=== PATIENT | female | born 1935 | race Caucasian/White ===

== ENCOUNTER → 2017-10-08 09:04 | Outpatient (CLI) | payer MEDICARE, OTHER, SELFPAY ==
[2017-10-08 12:47] LABS: AST(SGOT) 23 U/L (15-37); Alanine Aminotransfer ALT/SGPT 35 U/L (13-56); Albumin, Serum 3.7 g/dL (3.2-5.0); Alkaline Phosphatase 75 U/L (45-117); Bilirubin, Direct 0.14 mg/dL (0.00-0.30); Cholesterol 152 mg/dL (200); High Density Lipoprotein 97 mg/dL; Protein, Total 6.7 g/dL (6.4-8.2); T4 Total, Thyroxin 10.5 ug/dL (4.8-13.9); Thyroid Stim Hormone (TSH) 2.18 uIU/mL (0.358-3.74); Triglycerides 46 mg/dL; Very Low Density Lipoprotein 9 mg/dL (5-40)
== END ==
PROVIDERS: Family Provider Family Medicine; PCP Family Medicine; Visit Provider Internal Medicine Cardiovascular Disease
DX: I35.0 Nonrheumatic aortic (valve) stenosis (principal); Z95.2 Presence of prosthetic heart valve
CPT/HCPCS: 36415; 80061; 80076; 84436; 84443

== ENCOUNTER 2017-10-20 08:02 | Observation (INO) | payer MEDICARE, OTHER, SELFPAY ==
[2017-10-20] VITALS (14 sets, daily range): BP systolic 102–198; BP diastolic 45–82; PULSE 60–70; RESP 14–18; TEMP 36.3–36.7; O2SAT 94–100; BMI 25.9; BMI 26.1
--- NOTE | 2017-10-20 08:19 | CT_ITS ---
STUDY: CT BRAIN WITHOUT CONTRAST REASON FOR EXAM: Female, 82 years old. Balance trouble RADIATION DOSAGE (If Supplied By Facility): CTDIvol = ( 44.99 ) mGy, DLP = ( 749.45 ) mGycm TECHNIQUE: Transaxial CT imaging of the brain was performed without administration of intravenous contrast material. Individualized dose optimization techniques were used for this CT. COMPARISON: September 19, 2016 CT scan head FINDINGS: Normal soft tissue structures. Normal calvarium. There is mild cerebral atrophy with widening of the extra-axial spaces and ventricular dilatation. There are areas of decreased attenuation within the white matter tracts of the supratentorial brain, consistent with microvascular disease changes. Normal basal ganglia and thalami. Normal brainstem. There is mild cerebellar atrophy. There is no intracranial hemorrhage. There are no findings of an acute ischemic infarction. There is trace ethmoid sinus mucosal thickening. Mastoid air cells are clear. There is no evidence of fluid around the ossicles. CT/Brain/Head without Contrast IMPRESSION: Mild atrophy no evidence of acute hemorrhage infarct or edema. Electronically Signed: Nell Chavez MD at 9:46 EST Tel , Service support ,
--- NOTE | 2017-10-20 08:19 | RAD_ITS ---
STUDY: X-RAY CHEST REASON FOR EXAM: Female, 82 years old. Hypertension feels wobbly TECHNIQUE: Single AP portable view of the chest. COMPARISON: 09/14/2016 chest x-ray FINDINGS: The lungs are clear and expanded. There is no demonstrated pleural abnormality. Sternal cerclage wires are present from a prior sternotomy. There is mild cardiac enlargement. Normal mediastinum and pito. Normal visualized pulmonary arteries. There is atherosclerotic calcification of the aortic arch with tortuosity. There are diffuse degenerative changes of the visualized thoracic spine. Normal visualized ribs, clavicles, and shoulders. There is no demonstrated abnormality of the visualized soft tissue structures of the upper abdomen. RAD/Chest 1 View (Portable) IMPRESSION: Degenerative changes, as described above. Status post sternotomy. Mild cardiomegaly. No demonstrated acute cardiopulmonary process. Electronically Signed: Nell Chavez MD at 8:54 EST Tel , Service support ,
--- NOTE | 2017-10-20 08:20 | EKG12_ITS ---
Test Reason : HTN Blood Pressure : / mmHG Vent. Rate : 064 BPM Atrial Rate : 064 BPM P-R Int : 170 ms QRS Dur : 100 ms QT Int : 432 ms P-R-T Axes : 070 016 069 degrees QTc Int : 445 ms Normal sinus rhythm Low voltage QRS Borderline ECG Confirmed by LITZY SHANNON, REGAN ([id number]), movie editor MELISSA CACERES ([id number]) on 10/23/2017 3:53:14 PM Referred By: MARY Confirmed By:REGAN MCGHEE MD
[2017-10-20] MEDS: 0.9% Normal Saline 1,000 ML 150 ML IV (08:35)
[2017-10-20 08:50] LABS: Absolute Lymphocyte Count 0.37 X10^3/ul (0.83-4.51); Absolute Neutrophil Count 5.6 X10^3/uL (2.0-7.7); Basophil# 0.01 X10^3/uL; Basophil% 0.2 % (0-1); Differential Indicated SCAN CRITERIA MET; Eosinophil# 0.02 X10^3/uL; Eosinophils% 0.3 % (0-5); Hematocrit 35.9 % (37-47); Hemoglobin 11.8 g/dl (12.0-15.0); Lymphocyte # 0.37 X10^3/ul (4.0); Lymphocyte % 5.9 % (19-41); Mean Corp Hgb Conc 32.9 g/gl (32-36); Mean Corpuscular Hgb 29.1 pg (27.0-32.0); Mean Corpuscular Volume 88.6 fL (81-99); Mean Platelet Vol. 9.9 fl (6.2-12.0); Monocyte# 0.29 X10^3/uL; Monocyte% 4.6 % (0-10); Neutrophil # 5.57 X10^3/uL (2.7-7.7); Neutrophil % 88.8 % (47-70); POSITIVE COUNT NO; POSITIVE DIFFERENTIAL YES; POSITIVE MORPHOLOGY NO; Platelet Count 239 K/mm3 (150-450); RBC Distribution Width CV 14.4 % (11.6-14.6); RBC Distribution Width SD 47.3 fl (35.1-43.9); Red Blood Count 4.05 M/mm3 (4.2-5.4); White Blood Count 6.3 K/mm3 (4.4-11.0)
[2017-10-20] MEDS: Lisinopril 10 MG Tablet PO ×2 (08:50→16:31)
[2017-10-20 09:00] LABS: Bacteria 0 SEEN /hpf (None Seen); Mucous, Urine 0 SEEN /hpf (<or=2+); Red Blood Cells-Urine 0 SEEN /hpf (0-5); White Blood Cells 0 SEEN /hpf (0-5)
[2017-10-20 09:03] LABS: Color, Urine Yellow (Yellow); Glucose, Dipstick 1000 mg/dl (Normal); Ketone-Dipstick 5 mg/dl (Negative); Leukocyte Esterase-Dipstick 25 /ul (Negative); Nitrite-Dipstick Negative (Negative); Occult Blood-Urine 10 /ul (Negative); Protein-Dipstick 30 mg/dl (Negative); Specific Gravity, Urine 1.015 (1.002-1.030); Urine Bilirubin Dipstick Negative (Negative); Urine Clarity Clear (Clear); Urine Urobilinogen Normal (Normal)
[2017-10-20 09:09] LABS: Squamous Epithelial Cells - UA 0-5 SEEN /hpf (5-10)
[2017-10-20 09:34] LABS: Anion Gap 8 (5-15); BUN 36 mg/dL (7-18); BUN/Creat Ratio 45.2 RATIO (10-20); Calcium,Total 8.6 mg/dL (8.5-10.1); Chloride 99 mmol/L (98-107); EST Glomerular Filtration Rate 74 mL/min (>60); Est Glom Filt Rate - Afr Amer 89 mL/min (>60); Glucose 295 mg/dL (74-106); Potassium 4.2 mmol/L (3.5-5.1); Sodium Level 134 mmol/L (136-145)
--- NOTE | 2017-10-20 10:09 | ED.VISSUMM ---
- ER Visit Summary Date of Service: 10/20/17 Chief Complaint: [Hypertension, hyperglycemia, dizziness History of Present Illness: The patient is a 82 F [presents to the emergency department with complaint of not feeling well this morning. Patient states that she feels her symptoms are due to elevated blood pressure. Patient states normally her blood pressures in the 150s-160s 60s systolic and this morning she was 190/80. Patient states her blood sugars were in the 200s today. Patient states she did not eat well last evening and ate a bunch of junk. Patient denies any chest pain or shortness of breath. Patient does feel lightheaded with standing. Patient feels off balance and states she actually had to use her walker through the house today which is unusual. Patient denies any falls or head injuries. Patient is on Eliquis for history of atrial fibrillation.] Physical Examination: [HEENT-PERRLA, EOMI. Cranial nerves II through XII grossly intact. TMs clear. Mucous membranes moist. No adenopathy. Cardiovascular-regular rate and rhythm without murmur or ectopy Lungs-clear to auscultation, chest wall stable without crepitus or subcu emphysema Abdomen-normoactive bowel sounds, soft, nontender, no rebound or rigidity, no peritoneal signs. Neuro [id number] and heel bailey testing within normal limits. Negative Romberg, negative pronator drift, fundi benign. NIH stroke scale was 0. Extremities-intact ?4, normal range of motion, normal pulses, atraumatic] Test Results: [CT scan of the brain without contrast showed chronic involutional changes otherwise nothing acute. CBC with differential showed a white count 6.3, hemoglobin 11.8, hematocrit 36, platelets 239. Chemistry is unremarkable. Glucose was 295. Urinalysis was unremarkable other than she was spilling glucose. Troponin was less than 0.02. EKG showed sinus rhythm with a rate of 64 bpm.] Static vital signs were negative. Emergency Department Course and Treatment: [Patient did feel lightheaded with standing during orthostatic exam. Patient was given normal saline and was given her lisinopril initially 10 mg p.o.] etiology of her lightheadedness at this point is unclear. I do not see any evidence of stroke. Treatment Plan: [Admit] Disposition: [Admit] Impression: [Hypertension Dizziness-etiology uncertain Hyperglycemia] This note was generated with Dragon dictation software. It may contain incorrect words, spelling, and punctuation that were not noted in review of the chart prior to signing ED Disposition - Plan for ED Patient: Chief Complaint: Hypertension Referrals: Chad Chang MD [Primary Care Provider] -
--- NOTE | 2017-10-20 10:10 | PCM.HP.STD ---
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 (4) Paroxysmal atrial fibrillation Status: Chronic (5) History of aortic valve replacement with bioprosthetic valve Status: Chronic (6) Hyperlipidemia Status: Chronic Qualifiers: Hyperlipidemia type: unspecified Qualified Code(s): E78.5 - Hyperlipidemia, unspecified (7) Pulmonary hypertension Status: Chronic History of Present Illness Date of Admission: 10/20/17 Chief Complaint: Elevated BP, BS, Mildly Lightheaded The patient is a 82 y/o F w/ PMHx: HTN, HLD, Anxiety and Depression, PAF on chronic anticoagulation, Diabetes mellitus type II, Valvular Heart Disease s/p AVR, Pulmonary HTN who presents to the [facility] ED on 10/20/17 with vague complaints of elevated BS and elevated BP 10/20/17 AM, although she admitted to not having taken her BP regimen as of yet as well as non-compliant non-ADA food intake the evening prior with mild lightheadedness, weakness, noted to have required usage of her walker in the home which per her report is abnormal with no recent URI or illness. In the ED work-up included T97.4, HR 60s, BP 179/53, orthostatic VS unremarkable, RR 18, 100% on RA, CBC w/ WBC 6.3, Hgb 11.8, Plts 239 without marked shift, BMP w/ Na 134, BUN/Cr 36/0.80, glucose 295, trop < 0.02, UA not marked appearing, CT head unremarkable, CXR with chronic changes s/p sternotomy, mild cardiomegaly, EKG with SR without acute evidence of ischemia. In the ED patient administered NS, lisinopril regimen. Past Medical History Past Medical History (Chronic Problems): Chronic Problems (Last Reviewed 10/01/17 @ 09:34 by Sandy Valdez) HTN (hypertension) (Chronic) Anxiety and depression (Chronic) H/O aortic valve replacement (Chronic ~06/20/16) Type 2 diabetes mellitus (Chronic) Paroxysmal atrial fibrillation (Chronic) Edema (Chronic) Dyspnea on exertion (Chronic) Shortness of breath (Chronic) History of aortic valve replacement with bioprosthetic valve (Chronic ~06/20/16) Hyperlipidemia (Chronic) Pulmonary hypertension (Chronic) Allergies No Known Allergies Allergy (Verified 10/20/17 08:06) Home Medications: Ambulatory Orders Medication Instructions Recorded Atorvastatin Calcium [Lipitor] 20 mg PO QHS #0 tab 07/09/16 Amiodarone HCl [Cordarone] 100 mg PO DAILY 09/19/16 Apixaban [Eliquis] 5 mg PO BID 01/12/17 Multivitamins,Ther W-Minerals 1 tab PO DAILY 01/12/17 [Multivitamin With Minerals] Omeprazole 20 mg PO DAILY PRN 01/12/17 potassium chloride ER 10 mEq 10 meq PO QDAY PRN #90 tab 08/30/17 tablet,extended release(part/cryst) aspirin 81 mg chewable tablet 81 mg PO QDAY tab 09/25/17 furosemide 40 mg tablet 40 mg PO QDAY PRN 10/01/17 glimepiride 4 mg tablet 4 mg PO BID tab 10/01/17 lisinopril 10 mg tablet 10 mg PO QDAY 10/01/17 metformin 500 mg tablet 500 mg PO BID 10/01/17 tolterodine ER 4 mg 4 mg PO QDAY 10/01/17 capsule,extended release 24 hr Surgical History: - - S/P AVR, Carpal Tunnel Release, BL TKR, D+C. 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 Denies: Chills, Fever, Weight Change HEENT: Denies: Head Aches, Sinus Congestion, Sinus Drainage Cardiovascular: Reports: Light Headedness. Denies: Chest Pain, Palpitations Respiratory: Denies: Cough, Shortness of Breath, Shortness of breath at rest, Shortness of breath upon exertion, Sputum production, Wheezing Gastrointestinal: Denies: Abdominal Pain, Nausea, Vomiting Genitourinary: Denies: Dysuria Musculoskeletal: Denies: Joint Pain, Joint Tenderness Skin: Denies: Rash, Wounds Neurological: Denies: Slurred speech, Confusion, Focal weakness, Numbness, Tingling Psychiatric: Denies: Homicidal Ideations, Suicidal Ideations Hematologic/ Lymphatic: Reports: Easy Bruising, Easy Bleeding VTE Information - Inpt Only VTE Present on Admission: No VTE Mechan Device Prophylaxis: SCD's VTE Pharm Prophylaxis ordered?: No Reason prophylaxis not ordered:: Treatment Not Indicated Subjective: Seated upright in bed, recently up to restroom with assist. Notes feeling improved since initial ED presentation. Objective: Physical Examination: General: awake, alert, oriented x 3 and cooperative, seated upright in bed in no apparent distress. Skin: normal color, turgor, no icterus, cyanosis. HEENT: AT/NC, EOMI, PERRLA, MMM, no carotid bruits or JVD noted. Lungs: CTA bilaterally, moderate effort, mild decrease BL bases, no rales, ronchi or wheezing. Heart: Regular rate and rhythm; no gallop, rub audible, s/p AVR. Abdomen: soft, NTTP, ND, normal BS, no HSM. Extremities: no cyanosis, clubbing, or edema. Neurological: patient awake, alert, oriented x 3; cognitive function intact; pupils equally reactive to light and accomodation; cranial nerves II-XII grossly normal, moving all 4 extremities, no focal deficits, strength improved, mildly to moderately globally decreased. Psychiatric: affect appears normal, no acute evidence of depressive or anxiety feelings. - Physical Exam Vital Signs Temp Pulse Resp BP Pulse Ox 97.4 F L 64 18 170/78 H 97 10/20/17 08:03 10/20/17 09:56 10/20/17 08:28 10/20/17 09:56 10/20/17 10:03 Oxygen Delivery Method Room Air Weight: 146 lb 6.191 oz Body Mass Index (BMI) 25.9 Finger Stick Blood Glucose 287 Laboratory Tests Past 24 Hrs 10/20/17 10/20/17 10/20/17 08:30 08:30 08:45 WBC 6.3 RBC 4.05 L Hgb 11.8 L Hct 35.9 L MCV 88.6 MCH 29.1 MCHC 32.9 RDW 14.4 RDW Differential 47.3 H Plt Count 239 MPV 9.9 Immature Gran % (Auto) 0.200 Neut % (Auto) 88.8 H Lymph % (Auto) 5.9 L Arthur % (Auto) 4.6 Eos % (Auto) 0.3 Baso % (Auto) 0.2 Absolute Neuts (auto) 5.6 Absolute Lymphs (auto) 0.37 L Total Counted Not Reportable Sodium 134 L Potassium 4.2 Chloride 99 Carbon Dioxide 27.0 Anion Gap 8 BUN 36 H Creatinine 0.80 Estim Creat Clear Calc 46.40 Est GFR (MDRD) Af Amer 89 Est GFR (MDRD) Non-Af 74 BUN/Creatinine Ratio 45.2 H Glucose 295 H Calcium 8.6 Troponin I < 0.02 Urine Color Yellow Urine Clarity Clear Urine pH 7.0 Ur Specific [place] 1.015 Urine Protein 30 H Urine Glucose (UA) 1000 H Urine Ketones 5 H Urine Occult Blood 10 H Urine Nitrite Negative Urine Bilirubin Negative Urine Urobilinogen Normal Ur Leukocyte Esterase 25 H Urine RBC 0 SEEN Urine WBC 0 SEEN Ur Squamous Epith Cells 0-5 SEEN Urine Bacteria 0 SEEN Urine Mucus 0 SEEN Assessment/Plan The patient is a 82 y/o F w/ PMHx: HTN, HLD, Anxiety and Depression, PAF on chronic anticoagulation, Diabetes mellitus type II, Valvular Heart Disease s/p AVR, Pulmonary HTN who presents to the [facility] ED on 10/20/17 with vague complaints of elevated BS and elevated BP 10/20/17 AM, although she admitted to not having taken her BP regimen as of yet as well as non-compliant non-ADA food intake the evening prior with mild lightheadedness, weakness, noted to have required usage of her walker in the home which per her report is abnormal with no recent URI or illness. (1) Vague Lightheadedness, Dizziness, ? Near Syncope: Unclear etiololgy, EKG in ED w/ sinus rhythm without evidence of acute ischemia, CXR w/ no acute cardiopulmonary findings, initial trop normal. Will admit to PCU, place on a monitored bed to assure no acute myocardial infarction with serial cardiac enzymes and EKGs. Will maintain on fall precautions, admission orthostatic VS unremarkable, continue gentle IVFs, notes improved already since initial ED presentation, no recent ECHO thus will request in addition to carotid US but if improved to baseline over the next 24 hours per discussion with patient would allow discharge to home with follow-up with Cardiology, mag and TSH pending. PT, OT, CM for discharge planning. (2) PAF: EKG SR without acute evidence of ischemia, maintain on home amiodarone and eliquis regimen. TSH, mag pending as noted. (3) Hypertension, Uncontrolled: Elevated in the BP, did not take medications today, will continue home regimen including lisinopril, lasix, PRN hydralazine. (4) Hyperlipidemia: Not on regimen, defer to outpatient. (5) Diabetes mellitus type II: Hold oral home regimen, continue home insulin regimen, ADA diet, accu checks w/ ISS. Nutrition consulted for diet education. (6) Valvular Heart Disease: s/p AVR, no recent ECHO, requested, may not be able to be performed secondary to late admission weekend. (7) Chronic Appearing Normocytic Anemia: Admission Hgb 11.8, baseline appears 10-11, stable, trend. (8) DVT Prophylaxis: SCDs, eliquis. (9) CODE status: Discussed CODE status at length including difference between FULL code, DNR-CCA and DNR-CC status. Following discussions about the differences in these status, confirmed FULL CODE with living will in place which would further dictate withdrawal of care if worsened status following resuscitation efforts. She notes HCPOA in place. Advanced Care Planning Face to Face Time: 17 minutes. Code Visit OBSV E&M: 59872 Initial observation care L3 Procedures: 73730 Advncd Care Plan 30 Min
--- NOTE | 2017-10-20 10:20 | HP.PCM_ITS ---
Problem List (1) HTN (hypertension) Status: Chronic Qualifiers: Hypertension type: essential hypertension Qualified Code(s): I10 - Essential (primary) hypertension (2) Anxiety and depression Status: Chronic (3) Type 2 diabetes mellitus Status: Chronic Qualifiers: Diabetes mellitus complication status: with unspecified complications Diabetes mellitus ocean transportation intermediary insulin use: with longterm use Qualified Code(s) : E11.8 - Type 2 diabetes mellitus with unspecified complications; Z79.4 - intermodal dispatcher (current) use of insulin (4) Paroxysmal atrial fibrillation Status: Chronic (5) History of aortic valve replacement with bioprosthetic valve Status: Chronic (6) Hyperlipidemia Status: Chronic Qualifiers: Hyperlipidemia type: unspecified Qualified Code(s): E78.5 - Hyperlipidemia , unspecified (7) Pulmonary hypertension Status: Chronic History of Present Illness Date of Admission: 10/20/17 Chief Complaint: Elevated BP, BS, Mildly Lightheaded The patient is a 82 y/o F w/ PMHx: HTN, HLD, Anxiety and Depression, PAF on chronic anticoagulation, Diabetes mellitus type II, Valvular Heart Disease s/p AVR, Pulmonary HTN who presents to the [facility] ED on 10/20/17 with vague complaints of elevated BS and elevated BP 10/20/17 AM, although she admitted to not having taken her BP regimen as of yet as well as non-compliant non-ADA food intake the evening prior with mild lightheadedness, weakness, noted to have required usage of her walker in the home which per her report is abnormal with no recent URI or illness. In the ED work-up included T97.4, HR 60s, BP 179/53, orthostatic VS unremarkable, RR 18, 100% on RA, CBC w/ WBC 6.3, Hgb 11.8, Plts 239 without marked shift, BMP w/ Na 134, BUN/Cr 36/0.80, glucose 295, trop < 0.02, UA not marked appearing, CT head unremarkable, CXR with chronic changes s/p sternotomy , mild cardiomegaly, EKG with SR without acute evidence of ischemia. In the ED patient administered NS, lisinopril regimen. Past Medical History Past Medical History (Chronic Problems): Chronic Problems (Last Reviewed 10/01/17 @ 09:34 by Sandy Valdez) HTN (hypertension) (Chronic) Anxiety and depression (Chronic) H/O aortic valve replacement (Chronic ~06/20/16) Type 2 diabetes mellitus (Chronic) Paroxysmal atrial fibrillation (Chronic) Edema (Chronic) Dyspnea on exertion (Chronic) Shortness of breath (Chronic) History of aortic valve replacement with bioprosthetic valve (Chronic ~06/20/16) Hyperlipidemia (Chronic) Pulmonary hypertension (Chronic) Allergies No Known Allergies Allergy (Verified 10/20/17 08:06) Home Medications: Ambulatory Orders Medication Instructions Recorded Atorvastatin Calcium [Lipitor] 20 mg PO QHS #0 tab 07/09/16 Amiodarone HCl [Cordarone] 100 mg PO DAILY 09/19/16 Apixaban [Eliquis] 5 mg PO BID 01/12/17 Multivitamins,Ther W-Minerals 1 tab PO DAILY 01/12/17 [Multivitamin With Minerals] Omeprazole 20 mg PO DAILY PRN 01/12/17 potassium chloride ER 10 mEq 10 meq PO QDAY PRN #90 tab 08/30/17 tablet,extended release(part/cryst) aspirin 81 mg chewable tablet 81 mg PO QDAY tab 09/25/17 furosemide 40 mg tablet 40 mg PO QDAY PRN 10/01/17 glimepiride 4 mg tablet 4 mg PO BID tab 10/01/17 lisinopril 10 mg tablet 10 mg PO QDAY 10/01/17 metformin 500 mg tablet 500 mg PO BID 10/01/17 tolterodine ER 4 mg 4 mg PO QDAY 10/01/17 capsule,extended release 24 hr Surgical History: - - S/P AVR, Carpal Tunnel Release, BL TKR, D+C. Psychiatric History: Anxiety, Depression OUTSIDE SALES INSPECTOR History: No pertinent OUTSIDE SALES INSPECTOR history Lives: Alone Smoking Status: Never smoker Tobacco Use: Non-smoker Alcohol: None Drugs: None - *Family History Paternal History Items: Dementia, Heart Disease Maternal History Items: Heart Disease Review of Systems Constitutional: Reports: Malaise, Weakness, Fatigue. Denies: Chills, Fever, Weight Change HEENT: Denies: Head Aches, Sinus Congestion, Sinus Drainage Cardiovascular: Reports: Light Headedness. Denies: Chest Pain, Palpitations Respiratory: Denies: Cough, Shortness of Breath, Shortness of breath at rest, Shortness of breath upon exertion, Sputum production, Wheezing Gastrointestinal: Denies: Abdominal Pain, Nausea, Vomiting Genitourinary: Denies: Dysuria Musculoskeletal: Denies: Joint Pain, Joint Tenderness Skin: Denies: Rash, Wounds Neurological: Denies: Slurred speech, Confusion, Focal weakness, Numbness, Tingling Psychiatric: Denies: Homicidal Ideations, Suicidal Ideations Hematologic/ Lymphatic: Reports: Easy Bruising, Easy Bleeding VTE Information - Inpt Only VTE Present on Admission: No VTE Mechan Device Prophylaxis: SCD's VTE Pharm Prophylaxis ordered?: No Reason prophylaxis not ordered:: Treatment Not Indicated Subjective: Seated upright in bed, recently up to restroom with assist. Notes feeling improved since initial ED presentation. Objective: Physical Examination: General: awake, alert, oriented x 3 and cooperative, seated upright in bed in no apparent distress. Skin: normal color, turgor, no icterus, cyanosis. HEENT: AT/NC, EOMI, PERRLA, MMM, no carotid bruits or JVD noted. Lungs: CTA bilaterally, moderate effort, mild decrease BL bases, no rales, ronchi or wheezing. Heart: Regular rate and rhythm; no gallop, rub audible, s/p AVR. Abdomen: soft, NTTP, ND, normal BS, no HSM. Extremities: no cyanosis, clubbing, or edema. Neurological: patient awake, alert, oriented x 3; cognitive function intact; pupils equally reactive to light and accomodation; cranial nerves II-XII grossly normal, moving all 4 extremities, no focal deficits, strength improved, mildly to moderately globally decreased. Psychiatric: affect appears normal, no acute evidence of depressive or anxiety feelings. - Physical Exam Vital Signs Temp Pulse Resp BP Pulse Ox 97.4 F L 64 18 170/78 H 97 10/20/17 08:03 10/20/17 09:56 10/20/17 08:28 10/20/17 09:56 10/20/17 10:03 Oxygen Delivery Method Room Air Weight: 146 lb 6.191 oz Body Mass Index (BMI) 25.9 Finger Stick Blood Glucose 287 Laboratory Tests Past 24 Hrs 10/20/17 10/20/17 10/20/17 08:30 08:30 08:45 WBC 6.3 RBC 4.05 L Hgb 11.8 L Hct 35.9 L MCV 88.6 MCH 29.1 MCHC 32.9 RDW 14.4 RDW Differential 47.3 H Plt Count 239 MPV 9.9 Immature Gran % (Auto) 0.200 Neut % (Auto) 88.8 H Lymph % (Auto) 5.9 L [place] % (Auto) 4.6 Eos % (Auto) 0.3 Baso % (Auto) 0.2 Absolute Neuts (auto) 5.6 Absolute Lymphs (auto) 0.37 L Total Counted Not Reportable Sodium 134 L Potassium 4.2 Chloride 99 Carbon Dioxide 27.0 Anion Gap 8 BUN 36 H Creatinine 0.80 Estim Creat Clear Calc 46.40 Est GFR (MDRD) Af Amer 89 Est GFR (MDRD) Non-Af 74 BUN/Creatinine Ratio 45.2 H Glucose 295 H Calcium 8.6 Troponin I < 0.02 Urine Color Yellow Urine Clarity Clear Urine pH 7.0 Ur Specific [place] 1.015 Urine Protein 30 H Urine Glucose (UA) 1000 H Urine Ketones 5 H Urine Occult Blood 10 H Urine Nitrite Negative Urine Bilirubin Negative Urine Urobilinogen Normal Ur Leukocyte Esterase 25 H Urine RBC 0 SEEN Urine WBC 0 SEEN Ur Squamous Epith Cells 0-5 SEEN Urine Bacteria 0 SEEN Urine Mucus 0 SEEN Assessment/Plan The patient is a 82 y/o F w/ PMHx: HTN, HLD, Anxiety and Depression, PAF on chronic anticoagulation, Diabetes mellitus type II, Valvular Heart Disease s/p AVR, Pulmonary HTN who presents to the [facility] ED on 10/20/17 with vague complaints of elevated BS and elevated BP 10/20/17 AM, although she admitted to not having taken her BP regimen as of yet as well as non-compliant non-ADA food intake the evening prior with mild lightheadedness, weakness, noted to have required usage of her walker in the home which per her report is abnormal with no recent URI or illness. (1) Vague Lightheadedness, Dizziness, ? Near Syncope: Unclear etiololgy, EKG in ED w/ sinus rhythm without evidence of acute ischemia, CXR w/ no acute cardiopulmonary findings, initial trop normal. Will admit to PCU, place on a monitored bed to assure no acute myocardial infarction with serial cardiac enzymes and EKGs. Will maintain on fall precautions, admission orthostatic VS unremarkable, continue gentle IVFs, notes improved already since initial ED presentation, no recent ECHO thus will request in addition to carotid US but if improved to baseline over the next 24 hours per discussion with patient would allow discharge to home with follow-up with Cardiology, mag and TSH pending. PT , OT, CM for discharge planning. (2) PAF: EKG SR without acute evidence of ischemia, maintain on home amiodarone and eliquis regimen. TSH, mag pending as noted. (3) Hypertension, Uncontrolled: Elevated in the BP, did not take medications today, will continue home regimen including lisinopril, lasix, PRN hydralazine. (4) Hyperlipidemia: Not on regimen, defer to outpatient. (5) Diabetes mellitus type II: Hold oral home regimen, continue home insulin regimen, ADA diet, accu checks w/ ISS. Nutrition consulted for diet education. (6) Valvular Heart Disease: s/p AVR, no recent ECHO, requested, may not be able to be performed secondary to late admission weekend. (7) Chronic Appearing Normocytic Anemia: Admission Hgb 11.8, baseline appears 10 -11, stable, trend. (8) DVT Prophylaxis: SCDs, eliquis. (9) CODE status: Discussed CODE status at length including difference between FULL code, DNR-CCA and DNR-CC status. Following discussions about the differences in these status, confirmed FULL CODE with living will in place which would further dictate withdrawal of care if worsened status following resuscitation efforts. She notes HCPOA in place. Advanced Care Planning Face to Face Time: 17 minutes. Code Visit OBSV E&M: 51149 Initial observation care L3 Procedures: 35362 Advncd Care Plan 30 Min
[2017-10-20 12:38] LABS: Magnesium 1.8 mg/dL (1.6-2.6); Thyroid Stim Hormone (TSH) 2.66 uIU/mL (0.358-3.74)
[2017-10-20] MEDS: Tolterodine Tartrate 4 MG CAP.SA PO (12:39)
[2017-10-20] MEDS: 0.9% Normal Saline 1,000 ML 100 ML IV (12:39)
[2017-10-20] MEDS: Furosemide 40 MG Tablet PO (12:39)
[2017-10-20] MEDS: Famotidine 20 MG Tablet PO (12:43)
[2017-10-20 12:56] LABS: Bedside Glucose 279 mg/dL (70-110)
--- NOTE | 2017-10-20 14:11 | CASEMGMT ---
Social Work Note Face to face with the pt to discuss discharge planning as physician placed an order for limited support. Introduced self and role at [facility]. The pt reports that she lives alone in a two story home. She primarily stays on the first level, but does go to the second level once a day to clean her cats' litter boxes. Pt reports to be independent with ADL's and IADL's. Family lives in [place], but she has a neighbor that lives across the street. They check in on one another and are each other's primary supports. Pt states that her sister in [place] is her HCPOA and she has paperwork at home. She will be bringing her neighbor into the hospital next and stats she can bring in her HCPOA paperwork to medical records at that time. DME consists of a walker, cane, shower chair and handheld shower. She does not use her cane or walker at home however. Does not have HHC and states she does not need it. I don't want anyone helping me until I need it, and that's not now. Pt denies additional needs and is made aware that SILVIO saturation equipment operator CM is available if additional needs arise. Plan: Home Venus Gonzalez, WHEEL PRESS CLERK, LABORATORY OPERATIONS COORDINATOR
[2017-10-20 16:15] LABS: Hemoglobin A1c 9.1 % (4.2-6.3)
[2017-10-20 16:21] LABS: Bedside Glucose 288 mg/dL (70-110)
[2017-10-20] MEDS: 0.9% NaCl Peripheral Flush Adult/Peds IV (16:29)
[2017-10-20] MEDS: Atorvastatin Calcium 20 MG Tablet PO (21:38)
[2017-10-20] MEDS: APIXABAN 5 MG TABLET PO (21:38)
[2017-10-20] MEDS: MELATONIN 3 MG TABLET PO (21:38)
[2017-10-20] MEDS: Docusate Sodium 100 MG Capsule PO (21:38)
[2017-10-20 22:06] LABS: Bedside Glucose 211 mg/dL (70-110)
[2017-10-21 03:06] VITALS: PULSE 52
[2017-10-21 03:45] VITALS: BP 119/46; PULSE 55; RESP 16; TEMP 36.5; O2SAT 98
--- NOTE | 2017-10-21 05:55 | EKG12_ITS ---
Test Reason : AM EKG Blood Pressure : / mmHG Vent. Rate : 052 BPM Atrial Rate : 052 BPM P-R Int : 130 ms QRS Dur : 096 ms QT Int : 494 ms P-R-T Axes : 027 028 084 degrees QTc Int : 459 ms Sinus bradycardia Low voltage QRS Nonspecific T wave abnormality Abnormal ECG When compared with ECG of 20-OCT-2017 08:27, MANUAL COMPARISON REQUIRED, DATA IS UNCONFIRMED Confirmed by LITZY SHANNON, REGAN ([id number]), electronic news gathering editor MELISSA CACERES ([id number]) on 10/24/2017 1:45:13 PM Referred By: NABEEL Confirmed By:REGAN MCGHEE MD
[2017-10-21 06:46] LABS: Bedside Glucose 152 mg/dL (70-110)
--- NOTE | 2017-10-21 06:49 | PCM.DC ---
- Discharge Diagnoses Current Active Problems: Current Active and Chronic Problems (Last Reviewed 10/01/17 @ 09:34 by Sandy Valdez) HTN (hypertension) (Chronic) Anxiety and depression (Chronic) (1) Vague Lightheadedness, Dizziness, Suspected secondary to poorly controlled Hypertension and Diabetes mellitus type II (2) PAF (3) Hypertension, Uncontrolled (4) Hyperlipidemia (5) Diabetes mellitus type II, Uncontrolled (HgbA1c 9.1%) (6) Valvular Heart Disease s/p AVR (7) Chronic Appearing Normocytic Anemia You will use the following diet at home:: Calorie/Carbohydrate Controlled (specify 1200, 1400, etc) - 1800 ADA diet., Cardiac Your food should be the consistency of: Regular Your liquids should be the consistency of: Regular/Thin Discharge Activity: Use Walker May resume sexual activity in: 10-14 days Weight Bearing Status: Weight bearing as tolerated Call your doctor if you observe: Fever of 101 or Higher, Inability to urinate, Inability to have a bowel movement, Shortness of breath, Dizziness, Fainting spells, Chest pain, Uncontrolled pain Instructions: Taking LUIS Inhibitors, Controlling High Blood Pressure, Low-Salt Choices, Eating Heart-Healthy Food: Using the DASH Plan, What Is Type 2 Diabetes?, Oral Medications for Type 2 Diabetes, Healthy Meals for Diabetes, Diabetes: Understanding Carbohydrates Additional Instructions: Please follow-up with your primary care physician in order to review options for improved blood sugar control as your diabetes is currently poorly controlled and also assure that your blood pressure control is appropriate with includes an appropriate diet as well as taking your medications. Given your improvement and per your preference an echocardiogram was deferred while inpatient but we encourage you to follow-up with your primary care and your Parts Control Clerk for an echocardiogram as needed. Allergies/Adverse Reactions: Allergies No Known Allergies Allergy (Verified 10/20/17 08:06) Medications to take at Discharge Atorvastatin Calcium [Lipitor] 20 mg PO QHS #0 tab 07/09/16 Amiodarone HCl [Cordarone] 100 mg PO DAILY 09/19/16 Apixaban [Eliquis] 5 mg PO BID 01/12/17 Multivitamins,Ther W-Minerals [Multivitamin With Minerals] 1 tab PO DAILY 01/12/17 Omeprazole 20 mg PO DAILY PRN 01/12/17 potassium chloride ER 10 mEq tablet,extended release(part/cryst) 10 meq PO QDAY PRN #90 tab 08/30/17 aspirin 81 mg chewable tablet 81 mg PO QDAY tab 09/25/17 furosemide 40 mg tablet 40 mg PO QDAY PRN 10/01/17 glimepiride 4 mg tablet 4 mg PO BID tab 10/01/17 lisinopril 10 mg tablet 10 mg PO QDAY 10/01/17 tolterodine ER 4 mg capsule,extended release 24 hr 4 mg PO QDAY 10/01/17 Metformin HCl [Glucophage] 1,000 mg PO BIDCM #60 tablet 10/21/17 The following prescriptions were given: Metformin HCl [Glucophage] 1,000 mg PO BIDCM #60 tablet Primary Care Physician: Chad Chang MD [Primary Care Provider] - Please follow up with your Primary Care Physician in: Follow-up within 2-3 days. Please Follow Up With: Jose Rose MD When: Follow-up as arranged or within 2-4 wks, may see Cardio GERIATRIC NURSE. Proposed Discharge Date: 10/21/17
--- NOTE | 2017-10-21 06:53 | DCINST_ITS ---
- Discharge Diagnoses Current Active Problems: Current Active and Chronic Problems (Last Reviewed 10/01/17 @ 09:34 by Sandy Valdez) HTN (hypertension) (Chronic) Anxiety and depression (Chronic) (1) Vague Lightheadedness, Dizziness, Suspected secondary to poorly controlled Hypertension and Diabetes mellitus type II (2) PAF (3) Hypertension, Uncontrolled (4) Hyperlipidemia (5) Diabetes mellitus type II, Uncontrolled (HgbA1c 9.1%) (6) Valvular Heart Disease s/p AVR (7) Chronic Appearing Normocytic Anemia You will use the following diet at home:: Calorie/Carbohydrate Controlled ( specify 1200, 1400, etc) - 1800 ADA diet., Cardiac Your food should be the consistency of: Regular Your liquids should be the consistency of: Regular/Thin Discharge Activity: Use Walker May resume sexual activity in: 10-14 days Weight Bearing Status: Weight bearing as tolerated Call your doctor if you observe: Fever of 101 or Higher, Inability to urinate, Inability to have a bowel movement, Shortness of breath, Dizziness, Fainting spells, Chest pain, Uncontrolled pain Instructions: Taking LUIS Inhibitors, Controlling High Blood Pressure, Low-Salt Choices, Eating Heart-Healthy Food: Using the DASH Plan, What Is Type 2 Diabetes ?, Oral Medications for Type 2 Diabetes, Healthy Meals for Diabetes, Diabetes: Understanding Carbohydrates Additional Instructions: Please follow-up with your primary care physician in order to review options for improved blood sugar control as your diabetes is currently poorly controlled and also assure that your blood pressure control is appropriate with includes an appropriate diet as well as taking your medications. Given your improvement and per your preference an echocardiogram was deferred while inpatient but we encourage you to follow-up with your primary care and your Hop Trainer for an echocardiogram as needed. Allergies/Adverse Reactions: Allergies No Known Allergies Allergy (Verified 10/20/17 08:06) Medications to take at Discharge Atorvastatin Calcium [Lipitor] 20 mg PO QHS #0 tab 07/09/16 Amiodarone HCl [Cordarone] 100 mg PO DAILY 09/19/16 Apixaban [Eliquis] 5 mg PO BID 01/12/17 Multivitamins,Ther W-Minerals [Multivitamin With Minerals] 1 tab PO DAILY Omeprazole 20 mg PO DAILY PRN 01/12/17 potassium chloride ER 10 mEq tablet,extended release(part/cryst) 10 meq PO QDAY PRN #90 tab 08/30/17 aspirin 81 mg chewable tablet 81 mg PO QDAY tab 09/25/17 furosemide 40 mg tablet 40 mg PO QDAY PRN 10/01/17 glimepiride 4 mg tablet 4 mg PO BID tab 10/01/17 lisinopril 10 mg tablet 10 mg PO QDAY 10/01/17 tolterodine ER 4 mg capsule,extended release 24 hr 4 mg PO QDAY 10/01/17 Metformin HCl [Glucophage] 1,000 mg PO BIDCM #60 tablet 10/21/17 The following prescriptions were given: Metformin HCl [Glucophage] 1,000 mg PO BIDCM #60 tablet Primary Care Physician: Chad Chang MD [Primary Care Provider] - Please follow up with your Primary Care Physician in: Follow-up within 2-3 days. Please Follow Up With: Jose Rose MD When: Follow-up as arranged or within 2-4 wks, may see Cardio MANUFACTURING PLANT TECHNICIAN. Proposed Discharge Date: 10/21/17
[2017-10-21 06:55] VITALS: PULSE 60
[2017-10-21 07:04] LABS: Absolute Lymphocyte Count 1.19 X10^3/ul (0.83-4.51); Absolute Neutrophil Count 3.7 X10^3/uL (2.0-7.7); Basophil# 0.01 X10^3/uL; Basophil% 0.2 % (0-1); Eosinophil# 0.04 X10^3/uL; Eosinophils% 0.7 % (0-5); Hematocrit 33.8 % (37-47); Lymphocyte # 1.19 X10^3/ul (4.0); Lymphocyte % 22.1 % (19-41); Mean Corp Hgb Conc 32.5 g/gl (32-36); Mean Corpuscular Hgb 29.5 pg (27.0-32.0); Mean Corpuscular Volume 90.6 fL (81-99); Mean Platelet Vol. 10.4 fl (6.2-12.0); Monocyte# 0.48 X10^3/uL; Monocyte% 8.9 % (0-10); Neutrophil # 3.65 X10^3/uL (2.7-7.7); Neutrophil % 67.9 % (47-70); Platelet Count 225 K/mm3 (150-450); RBC Distribution Width CV 14.8 % (11.6-14.6); RBC Distribution Width SD 47.7 fl (35.1-43.9); Red Blood Count 3.73 M/mm3 (4.2-5.4); White Blood Count 5.4 K/mm3 (4.4-11.0)
[2017-10-21 07:26] LABS: POSITIVE COUNT NO; POSITIVE DIFFERENTIAL NO; POSITIVE MORPHOLOGY NO
[2017-10-21 07:46] VITALS: O2SAT 93
[2017-10-21 08:28] LABS: Anion Gap 8 (5-15); BUN 22 mg/dL (7-18); BUN/Creat Ratio 38.4 RATIO (10-20); Calcium,Total 7.7 mg/dL (8.5-10.1); Chloride 101 mmol/L (98-107); Creatinine, Serum 0.57 mg/dL (0.55-1.02); EST Glomerular Filtration Rate 108 mL/min (>60); Est Glom Filt Rate - Afr Amer 130 mL/min (>60); Estimated Creatinine Clearance 35.49 ml/min; Glucose 143 mg/dL (74-106); Potassium 3.7 mmol/L (3.5-5.1); Sodium Level 137 mmol/L (136-145)
[2017-10-21 08:34] VITALS: BP 123/53; PULSE 56; RESP 18; TEMP 36.4; O2SAT 97
[2017-10-21] MEDS: Aspirin 81 MG TAB.CHEW PO (08:39)
[2017-10-21] MEDS: Multivitamins,Ther W-Minerals Tablet 1 TABLET PO (08:39)
[2017-10-21] MEDS: APIXABAN 5 MG TABLET PO (08:39)
[2017-10-21] MEDS: Tolterodine Tartrate 4 MG CAP.SA PO (08:39)
[2017-10-21] MEDS: Famotidine 20 MG Tablet PO (08:39)
[2017-10-21] MEDS: Docusate Sodium 100 MG Capsule PO (08:39)
[2017-10-21 08:43] VITALS: PULSE 55
--- NOTE | 2017-10-21 10:36 | NURSING ---
patient refuses home health care
--- NOTE | 2017-10-21 10:46 | PCM.DC.SUM ---
Discharge Date and Diagnosis Date of Admission: 10/20/17 Date of Discharge: 10/21/17 - Primary Discharge Diagnosis (1) Vague Lightheadedness, Dizziness, Suspected secondary to poorly controlled Hypertension and Diabetes mellitus type II (2) PAF (3) Hypertension, Uncontrolled (4) Hyperlipidemia (5) Diabetes mellitus type II, Uncontrolled (HgbA1c 9.1%) (6) Valvular Heart Disease s/p AVR (7) Chronic Appearing Normocytic Anemia - Secondary Discharge Diagnosis Chronic Problems (Last Reviewed 10/01/17 @ 09:34 by Sandy Valdez) HTN (hypertension) (Chronic) Anxiety and depression (Chronic) H/O aortic valve replacement (Chronic ~06/20/16) Type 2 diabetes mellitus (Chronic) Paroxysmal atrial fibrillation (Chronic) Edema (Chronic) Dyspnea on exertion (Chronic) Shortness of breath (Chronic) History of aortic valve replacement with bioprosthetic valve (Chronic ~06/20/16) Hyperlipidemia (Chronic) Pulmonary hypertension (Chronic) Hospital Course and Treatment Operations: None Procedures: EKG Summary of Care Provided: The patient is a 82 y/o F w/ PMHx: HTN, HLD, Anxiety and Depression, PAF on chronic anticoagulation, Diabetes mellitus type II, Valvular Heart Disease s/p AVR, Pulmonary HTN who presented to the [facility] ED on 10/20/17 with vague complaints of elevated BS and elevated BP 10/20/17 AM, although she admitted to not having taken her BP regimen as of yet as well as non-compliant non-ADA food intake the evening prior with mild lightheadedness, weakness, noted to have required usage of her walker in the home which per her report is abnormal with no recent URI or illness. In the ED work-up included T97.4, HR 60s, BP 179/53, orthostatic VS unremarkable, RR 18, 100% on RA, CBC w/ WBC 6.3, Hgb 11.8, Plts 239 without marked shift, BMP w/ Na 134, BUN/Cr 36/0.80, glucose 295, trop < 0.02, UA not marked appearing, CT head unremarkable, CXR with chronic changes s/p sternotomy, mild cardiomegaly, EKG with SR without acute evidence of ischemia. The patient was admitted to PCU, maintained on monitor without event, maintained on fall precautions, admission orthostatic VS unremarkable, continued gentle IVFs and then HLIV. She noted improvement even upon transition from ED to floor with BP improvement. In the ED patient had been administered her home regimen. Mag and TSH were normal. During admission additionally work-up had included HgbA1c, noted to be 9.1%, diet and lifestyle education encouraged and nutrition consulted. Upon discharge metformin was increased. Discussed need for compliance with her medications and diet as likely the cause of her presentation was recently not taking her blood pressure medication and diet noncompliance with her diabetes. Discussed with staff and requested patient be discharged to home with home health close monitoring of her medications to assure appropriately taking. 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 DAY OF DISCHARGE PROGRESS NOTE: Subjective: Patient without acute event overnight per self and nursing report. She was up and ambulating in her room without issue and no further subjective lightheadedness following BP normalization. Discussed medication compliance at length and diet changes given poorly controlled diabetes. I did talk with patient about possible need for insulin which she wants to discuss with her PCP. Patient denies fever, chills, nausea, emesis, abdominal pain, chest pain or dyspnea. Patient agreeable to discharge to home. 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 Objective: T 97.6, HR 55, BP 123/53, RR 18, 97% on RA. Physical Examination: General: awake, alert, oriented x 3 and cooperative, seated upright in bed in no apparent distress. Skin: normal color, turgor, no icterus, cyanosis. HEENT: AT/NC, EOMI, PERRLA, MMM. Lungs: CTA bilaterally, moderate effort, mild decrease BL bases, no rales, ronchi or wheezing. Heart: Regular rate and rhythm; no gallop, rub audible, s/p AVR. Abdomen: soft, NTTP, ND, normal BS. Extremities: no cyanosis, clubbing, or edema. Neurological: patient awake, alert, oriented x 3; cognitive function intact; pupils equally reactive to light and accomodation; cranial nerves II-XII grossly normal, moving all 4 extremities, no focal deficits, strength improved, mildly globally decreased. Psychiatric: affect appears normal, no acute evidence of depressive or anxiety feelings. Assessment and Plan: Please see hospital summary above. Discharge Activity: Use Walker May resume sexual activity in: 10-14 days Weight Bearing Status: Weight bearing as tolerated Call your doctor if you observe: Fever of 101 or Higher, Inability to urinate, Inability to have a bowel movement, Shortness of breath, Dizziness, Fainting spells, Chest pain, Uncontrolled pain Home Medications: Medications to take at Discharge Atorvastatin Calcium [Lipitor] 20 mg PO QHS #0 tab 07/09/16 Amiodarone HCl [Cordarone] 100 mg PO DAILY 09/19/16 Apixaban [Eliquis] 5 mg PO BID 01/12/17 Multivitamins,Ther W-Minerals [Multivitamin With Minerals] 1 tab PO DAILY 01/12/17 Omeprazole 20 mg PO DAILY PRN 01/12/17 potassium chloride ER 10 mEq tablet,extended release(part/cryst) 10 meq PO QDAY PRN #90 tab 08/30/17 aspirin 81 mg chewable tablet 81 mg PO QDAY tab 09/25/17 furosemide 40 mg tablet 40 mg PO QDAY PRN 10/01/17 glimepiride 4 mg tablet 4 mg PO BID tab 10/01/17 lisinopril 10 mg tablet 10 mg PO QDAY 10/01/17 tolterodine ER 4 mg capsule,extended release 24 hr 4 mg PO QDAY 10/01/17 Metformin HCl [Glucophage] 1,000 mg PO BIDCM #60 tab 10/21/17 Following Prescrptions Were Given to Patient: Metformin HCl [Glucophage] 1,000 mg PO BIDCM #60 tab Primary Care Physician: Chad Chang MD [Primary Care Provider] - Please follow up with your Primary Care Physician in: Follow-up within 2-3 days. Please Follow Up With: Jose Rose MD When: Follow-up as arranged or within 2-4 wks, may see Cardio LOFTSMAN. Patient Instructions: Taking LUIS Inhibitors, Controlling High Blood Pressure, Low-Salt Choices, What Is Type 2 Diabetes?, Oral Medications for Type 2 Diabetes, Healthy Meals for Diabetes, Diabetes: Understanding Carbohydrates, Eating Heart-Healthy Food: Using the DASH Plan Disposition: Home with Home Health Minutes spent on discharge:: 25 Patient Condition:: Fair Meaningful Use Info Meaningful Use Diagnoses (Choose all that apply): None applicable Code Visit OBSV E&M: 19725 Observation care discharge
--- NOTE | 2017-10-21 10:51 | DS.PCM_ITS ---
Discharge Date and Diagnosis Date of Admission: 10/20/17 Date of Discharge: 10/21/17 - Primary Discharge Diagnosis (1) Vague Lightheadedness, Dizziness, Suspected secondary to poorly controlled Hypertension and Diabetes mellitus type II (2) PAF (3) Hypertension, Uncontrolled (4) Hyperlipidemia (5) Diabetes mellitus type II, Uncontrolled (HgbA1c 9.1%) (6) Valvular Heart Disease s/p AVR (7) Chronic Appearing Normocytic Anemia - Secondary Discharge Diagnosis Chronic Problems (Last Reviewed 10/01/17 @ 09:34 by Sandy Valdez) HTN (hypertension) (Chronic) Anxiety and depression (Chronic) H/O aortic valve replacement (Chronic ~06/20/16) Type 2 diabetes mellitus (Chronic) Paroxysmal atrial fibrillation (Chronic) Edema (Chronic) Dyspnea on exertion (Chronic) Shortness of breath (Chronic) History of aortic valve replacement with bioprosthetic valve (Chronic ~06/20/16) Hyperlipidemia (Chronic) Pulmonary hypertension (Chronic) Hospital Course and Treatment Operations: None Procedures: EKG Summary of Care Provided: The patient is a 82 y/o F w/ PMHx: HTN, HLD, Anxiety and Depression, PAF on chronic anticoagulation, Diabetes mellitus type II, Valvular Heart Disease s/p AVR, Pulmonary HTN who presented to the [facility] ED on 10/20/17 with vague complaints of elevated BS and elevated BP 10/20/17 AM, although she admitted to not having taken her BP regimen as of yet as well as non-compliant non-ADA food intake the evening prior with mild lightheadedness, weakness, noted to have required usage of her walker in the home which per her report is abnormal with no recent URI or illness. In the ED work-up included T97.4, HR 60s, BP 179/53, orthostatic VS unremarkable, RR 18, 100% on RA, CBC w/ WBC 6.3, Hgb 11.8, Plts 239 without marked shift, BMP w/ Na 134, BUN/Cr 36/0.80, glucose 295, trop < 0.02, UA not marked appearing, CT head unremarkable, CXR with chronic changes s/p sternotomy , mild cardiomegaly, EKG with SR without acute evidence of ischemia. The patient was admitted to PCU, maintained on monitor without event, maintained on fall precautions, admission orthostatic VS unremarkable, continued gentle IVFs and then HLIV. She noted improvement even upon transition from ED to floor with BP improvement. In the ED patient had been administered her home regimen. Mag and TSH were normal. During admission additionally work-up had included HgbA1c, noted to be 9.1%, diet and lifestyle education encouraged and nutrition consulted. Upon discharge metformin was increased. Discussed need for compliance with her medications and diet as likely the cause of her presentation was recently not taking her blood pressure medication and diet noncompliance with her diabetes. Discussed with staff and requested patient be discharged to home with home health close monitoring of her medications to assure appropriately taking. 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 DAY OF DISCHARGE PROGRESS NOTE: Subjective: Patient without acute event overnight per self and nursing report. She was up and ambulating in her room without issue and no further subjective lightheadedness following BP normalization. Discussed medication compliance at length and diet changes given poorly controlled diabetes. I did talk with patient about possible need for insulin which she wants to discuss with her PCP. Patient denies fever, chills, nausea, emesis, abdominal pain, chest pain or dyspnea. Patient agreeable to discharge to home. Patient will be discharged with follow-up with primary care physician within 3-5 days in addition to her Broiler Chef Or Cook. Objective: T 97.6, HR 55, BP 123/53, RR 18, 97% on RA. Physical Examination: General: awake, alert, oriented x 3 and cooperative, seated upright in bed in no apparent distress. Skin: normal color, turgor, no icterus, cyanosis. HEENT: AT/NC, EOMI, PERRLA, MMM. Lungs: CTA bilaterally, moderate effort, mild decrease BL bases, no rales, ronchi or wheezing. Heart: Regular rate and rhythm; no gallop, rub audible, s/p AVR. Abdomen: soft, NTTP, ND, normal BS. Extremities: no cyanosis, clubbing, or edema. Neurological: patient awake, alert, oriented x 3; cognitive function intact; pupils equally reactive to light and accomodation; cranial nerves II-XII grossly normal, moving all 4 extremities, no focal deficits, strength improved, mildly globally decreased. Psychiatric: affect appears normal, no acute evidence of depressive or anxiety feelings. Assessment and Plan: Please see hospital summary above. Discharge Activity: Use Walker May resume sexual activity in: 10-14 days Weight Bearing Status: Weight bearing as tolerated Call your doctor if you observe: Fever of 101 or Higher, Inability to urinate, Inability to have a bowel movement, Shortness of breath, Dizziness, Fainting spells, Chest pain, Uncontrolled pain Home Medications: Medications to take at Discharge Atorvastatin Calcium [Lipitor] 20 mg PO QHS #0 tab 07/09/16 Amiodarone HCl [Cordarone] 100 mg PO DAILY 09/19/16 Apixaban [Eliquis] 5 mg PO BID 01/12/17 Multivitamins,Ther W-Minerals [Multivitamin With Minerals] 1 tab PO DAILY Omeprazole 20 mg PO DAILY PRN 01/12/17 potassium chloride ER 10 mEq tablet,extended release(part/cryst) 10 meq PO QDAY PRN #90 tab 08/30/17 aspirin 81 mg chewable tablet 81 mg PO QDAY tab 09/25/17 furosemide 40 mg tablet 40 mg PO QDAY PRN 10/01/17 glimepiride 4 mg tablet 4 mg PO BID tab 10/01/17 lisinopril 10 mg tablet 10 mg PO QDAY 10/01/17 tolterodine ER 4 mg capsule,extended release 24 hr 4 mg PO QDAY 10/01/17 Metformin HCl [Glucophage] 1,000 mg PO BIDCM #60 tab 10/21/17 Following Prescrptions Were Given to Patient: Metformin HCl [Glucophage] 1,000 mg PO BIDCM #60 tab Primary Care Physician: Chad Chang MD [Primary Care Provider] - Please follow up with your Primary Care Physician in: Follow-up within 2-3 days. Please Follow Up With: Jose Rose MD When: Follow-up as arranged or within 2-4 wks, may see Cardio INVESTMENT STRATEGIST. Patient Instructions: Taking LUIS Inhibitors, Controlling High Blood Pressure, Low-Salt Choices, What Is Type 2 Diabetes?, Oral Medications for Type 2 Diabetes , Healthy Meals for Diabetes, Diabetes: Understanding Carbohydrates, Eating Heart-Healthy Food: Using the DASH Plan Disposition: Home with Home Health Minutes spent on discharge:: 25 Patient Condition:: Fair Meaningful Use Info Meaningful Use Diagnoses (Choose all that apply): None applicable Code Visit OBSV E&M: 63392 Observation care discharge
== END 2017-10-21 10:47 | disposition home or self-care (01) ==
LOC: ED 08:51 → PCU 10:46
PROVIDERS: Admitting Provider Family Medicine; Emergency Provider Emergency Medicine; Family Provider Family Medicine; PCP Family Medicine; Visit Provider Family Medicine
DX: R42 Dizziness and giddiness (principal); I10 Essential (primary) hypertension; I48.0 Paroxysmal atrial fibrillation; E78.5 Hyperlipidemia, unspecified; E11.65 Type 2 diabetes mellitus with hyperglycemia; D64.9 Anemia, unspecified; Z79.82 Long term (current) use of aspirin; Z79.899 Other long term (current) drug therapy; Z79.01 Long term (current) use of anticoagulants; Z79.84 Long term (current) use of oral hypoglycemic drugs; Z95.2 Presence of prosthetic heart valve; I27.20 Pulmonary hypertension, unspecified; Z91.11 Patient's noncompliance with dietary regimen; Z66 Do not resuscitate
CPT/HCPCS: 36415; 70450; 71045; 80048; 81001; 82962; 83036; 83735; 84443; 84484; 85025; 93005; 96360; 96361; 99218; 99282; 99283; J7030; A4216; G0378

== ENCOUNTER 2017-10-21 12:49 | Emergency (ER) | payer MEDICARE, OTHER, SELFPAY ==
[2017-10-21 12:51] VITALS: BP 193/76; PULSE 64; RESP 18; TEMP 37; O2SAT 94; BMI 26.9
--- NOTE | 2017-10-21 13:39 | ED.VISSUMM ---
- ER Visit Summary Date of Service: 10/21/17 Chief Complaint: Elevated blood pressure and blood sugar History of Present Illness: The patient is a [address] Chad Chang. She was discharged in the hospital approximately 2 hours ago. She reports that she got home and took her blood pressure and it was 169/70. She measured her blood sugar and it was 300. Patient reports that she has not eaten since breakfast. However, she had 2 slices of toast and cornflakes. He had a prolonged discussion with her about the fact that these are high in carbohydrates and it is likely the cause of her elevated blood sugar. While she was an inpatient she had her metformin increased. Physical Examination: Vitals: Stable. Afebrile. General: Well-nourished and well-developed. Head: Normocephalic atraumatic. Neck: Supple, no lymphadenopathy. No JVD. Nontender. Cardiovascular: Regular rate and rhythm. No murmurs. Respiratory: No respiratory distress. Clear to auscultation bilaterally. Abdominal: Soft, nontender, nondistended, normal bowel sounds. No guarding, rebound, or peritoneal signs. Back: Nontender. Extremities: Nontender, no edema. Skin: Normal color, no rash. Neurologic: Alert and oriented ?3. Cranial nerves II through XII are intact. Normal strength and sensation. Psych: Normal affect. Test Results: Patient has had a comprehensive workup in the past 2 days. None of this was repeated. Her blood work from today was remarkable for an H&H of 11.0 and 33.8. Chem-7 from today was marked for glucose of 143, BUN 22, calcium is 7.7. She had a negative urinalysis yesterday. She had a negative chest x-ray yesterday. She had a negative CT of the brain yesterday. Emergency Department Course and Treatment: I had a prolonged discussion with the patient about diabetes and monitoring her diet/blood sugar. Also had a prolonged discussion with her about her blood pressure. Treatment Plan: She will be discharged instructions to follow-up with Dr. Chad Chang in 3-5 days for further evaluation. At this time I do not see any reason that she needs to be admitted to the hospital again. Disposition: To home in improved and stable condition. Impression:. Hypertension. 2. Hyperglycemia with type 2 diabetes mellitus. This note was generated with Dragon dictation software. It may contain incorrect words, spelling, and punctuation that were not noted in review of the chart prior to signing ED Disposition - Plan for ED Patient: Disposition: Home or Assisted Living Chief Complaint: Hypertension Instructions: ED Hyperglycemia Diabetic, ED HTN Established Referrals: Chad Chang MD [Primary Care Provider] - 3-5 Days Additional Instructions: Eat the same meal every day for breakfast and/or lunch. Write down what you ate and how many carbs were in it. Check your blood sugar as you have been and record this. You will get better control of your blood sugar by doing this. All grains are high in carbs. You should take your Lasix when your weight increases by 2 pounds. Drink more water. Do not measure your blood pressure.
== END 2017-10-21 13:50 | disposition home or self-care (01) ==
LOC: ED 13:55
PROVIDERS: Emergency Provider Emergency Medicine; Family Provider Family Medicine; PCP Family Medicine
DX: I10 Essential (primary) hypertension (principal); E11.65 Type 2 diabetes mellitus with hyperglycemia; R05 Cough; E78.00 Pure hypercholesterolemia, unspecified
CPT/HCPCS: 99282

== ENCOUNTER 2018-01-16 08:17 | Outpatient (RCR) | payer MEDICARE, OTHER, SELFPAY ==
[2018-01-16 09:25] VITALS: BP 124/64; PULSE 65; RESP 20; TEMP 36.7; BMI 25.4
[2018-01-16 15:55] LABS: Absolute Lymphocyte Count 0.97 X10^3/ul (0.83-4.51); Absolute Neutrophil Count 4.5 X10^3/uL (2.0-7.7); Basophil# 0.01 X10^3/uL; Basophil% 0.2 % (0-1); Eosinophil# 0.04 X10^3/uL; Eosinophils% 0.7 % (0-5); Hematocrit 36.3 % (37-47); Hemoglobin 11.9 g/dl (12.0-15.0); Lymphocyte # 0.97 X10^3/ul (4.0); Lymphocyte % 16.6 % (19-41); Mean Corp Hgb Conc 32.8 g/gl (32-36); Mean Corpuscular Hgb 28.9 pg (27.0-32.0); Mean Corpuscular Volume 88.1 fL (81-99); Mean Platelet Vol. 10.2 fl (6.2-12.0); Monocyte# 0.34 X10^3/uL; Monocyte% 5.8 % (0-10); Neutrophil # 4.47 X10^3/uL (2.7-7.7); Neutrophil % 76.4 % (47-70); Platelet Count 295 K/mm3 (150-450); RBC Distribution Width CV 14.2 % (11.6-14.6); RBC Distribution Width SD 45.5 fl (35.1-43.9); Red Blood Count 4.12 M/mm3 (4.2-5.4); White Blood Count 5.9 K/mm3 (4.4-11.0)
[2018-01-16 16:04] LABS: POSITIVE COUNT NO; POSITIVE DIFFERENTIAL NO; POSITIVE MORPHOLOGY NO
[2018-01-16 16:14] LABS: Hemoglobin A1c 10.1 % (4.2-6.3)
--- NOTE | 2018-01-16 19:02 | PCM.WC.HP ---
(1) Ulcer of left lower extremity with fat layer exposed Status: Acute Current Visit: Yes Code(s): L97.922 - Non-pressure chronic ulcer of unspecified part of left lower leg with fat layer exposed (2) Venous insufficiency of both lower extremities Status: Acute Current Visit: Yes Code(s): I87.2 - Venous insufficiency (chronic) (peripheral) (3) Type 2 diabetes mellitus Status: Chronic Current Visit: Yes Qualifiers: Code(s): E11.9 - Type 2 diabetes mellitus without complications History of Present Illness Date of Service: 01/16/18 Chief Complaint: Left lower extremity ulcers. Bilateral lower extremity swelling. History of Wound: Ms. Jovel 20-year-old who presents to the wound center due to nonhealing left lower extremity wounds/ulcers. Exact etiology is unknown however patient believes it started about 3 weeks ago. She has had no significant wound care but has covered the wound surfaces with Band-Aids. She has noted increased drainage from the wound of clear substance. She was recently seen by primary care physician and started on Augmentin. She has had no cultures done. She feels well otherwise and denies chills, fever, nausea, vomiting or any change in her bowel habit. She is not very compliant with her diabetic care. Past Medical History Past Medical History: Chronic Problems (Last Reviewed 10/01/17 @ 09:34 by Sandy Valdez) HTN (hypertension) (Chronic) Anxiety and depression (Chronic) H/O aortic valve replacement (Chronic ~06/20/16) Type 2 diabetes mellitus (Chronic) Paroxysmal atrial fibrillation (Chronic) Edema (Chronic) Dyspnea on exertion (Chronic) Shortness of breath (Chronic) History of aortic valve replacement with bioprosthetic valve (Chronic ~06/20/16) Hyperlipidemia (Chronic) Pulmonary hypertension (Chronic) Surgical History: - - S/P AVR, Carpal Tunnel Release, BL TKR, D+C. Allergies/Adverse Reactions: Allergies No Known Allergies Allergy (Verified 10/21/17 12:51) Home Medications: Ambulatory Orders Medication Instructions Recorded Atorvastatin Calcium [Lipitor] 20 mg PO QHS #0 tab 07/09/16 Omeprazole 20 mg PO DAILY PRN 01/12/17 potassium chloride ER 10 mEq 10 meq PO QDAY PRN #90 tab 08/30/17 tablet,extended release(part/cryst) aspirin 81 mg chewable tablet 81 mg PO QDAY tab 09/25/17 furosemide 40 mg tablet 40 mg PO QDAY PRN 10/01/17 glimepiride 4 mg tablet 4 mg PO BID tab 10/01/17 tolterodine ER 4 mg 4 mg PO QDAY 10/01/17 capsule,extended release 24 hr Metformin HCl [Glucophage] 1,000 mg PO BIDCM #60 tab 10/21/17 apixaban 5 mg tablet 5 mg PO BID #60 tab 11/05/17 lisinopril 10 mg tablet 5 mg PO QDAY tab 11/19/17 amiodarone 200 mg tablet 100 mg PO DAILY #30 tab 01/07/18 - Family History Paternal Family History: Family History (Last Reviewed 10/01/17 @ 09:34 by Sandy Valdez) Father CAD (coronary artery disease) Mother CAD (coronary artery disease) Dementia, Heart Disease Maternal Family History: Family History (Last Reviewed 10/01/17 @ 09:34 by Sandy Valdez) Father CAD (coronary artery disease) Mother CAD (coronary artery disease) Heart Disease Smoking Status: Never smoker Review of Systems Constitutional: Denies: Anorexia, Chills, Fever Eyes: Denies: Pain, Redness HEENT: Denies: Difficulty Swallowing, Head Aches Cardiovascular: Denies: Chest Pain, Chest Pressure, Chest Tightness Respiratory: Denies: Cough, Hemoptysis Gastrointestinal: Denies: Abdominal Pain, Hematemesis, Vomiting Skin: Denies: Jaundice - Physical Exam Vital Signs Temp Pulse Resp BP 98.0 F 65 20 H 124/64 H 01/16/18 09:25 01/16/18 09:25 01/16/18 09:25 01/16/18 09:25 General: Alert, Oriented x3, No apparent distress HEENT: Atraumatic, Normocephalic Oral: Moist Mucosa Neck: Supple Lungs: Normal air movement Cardiovascular: Regular rate Abdomen: Soft, Non Tender Extremities: No cyanosis, Edema Skin: Ulcer/ Wound Wound Measurements and Assessment WC - Nurse 1 - General Ulcer Measurement Start: 01/16/18 09:24 Freq: Status: Active Protocol: Activity Type Activity Date Activity User E-Sign Co-Sign Detail Recorded Client Recorded Date Recorded By Document 01/16/18 09:25 VALDEMAR [id number] 01/16/18 09:57 JS 01/16/18 09:25 Wound Center Nurse 1 [Ulcer Assessment] #2 MEDIAL LLE CLUSTER -Combined with other wound No -Current Size (cm) - Length 4.7 -Current Size (cm) - Width 4.5 -Current Size (cm) - Depth 0.1 -Total Square Cm 21.15 -Date of Last Picture (Recall this 01/16/18 field) -Photo Taken Yes -Epithelialization None Present -Tunneling No -Undermining/Tunneling No -Circular Undermining No -Classification - Thickness Partial Thickness -Exudate Amt Medium (34-66%) -Exudate Type Serosanguineous -Wound Margin Distinct, Outline Attached -Granulation Amt None Present (0 %) -Granulation Quality N/A -Slough/Fibrin Yes -Necrosis Amt Small (1-33%) -Necrotic Tissue Type Adherent Slough -Structure Exposed None/Limited to Skin Breakdown -Texture (Jessie-wound Skin Appearance) Induration Localized Edema -Moisture (Jessie-wound Skin Appearance No Abnormality ) -Color (Jessie-wound Skin Appearance) Erythema -Temperature (Jessie-wound Skin No Abnormality Appearance) (Pt Warm) -Tenderness on Palpation (Jessie-wound No Skin Appearance) -Ulcer Cleansing Rinsed/ Irrigated with Saline -Foul Odor after Cleansing No -Anesthetic Used 4% Lidocaine Solution #1 LEFT AMOS -Combined with other wound No -Current Size (cm) - Length 3.8 -Current Size (cm) - Width 2.5 -Current Size (cm) - Depth 0.1 -Total Square Cm 9.50 -Date of Last Picture (Recall this 01/16/18 field) -Photo Taken Yes -Epithelialization None Present -Tunneling No -Undermining/Tunneling No -Circular Undermining No -Classification - Thickness Partial Thickness -Exudate Amt Medium (34-66%) -Exudate Type Serosanguineous -Wound Margin Distinct, Outline Attached -Granulation Amt None Present (0 %) -Granulation Quality N/A -Slough/Fibrin Yes -Necrosis Amt Small (1-33%) -Necrotic Tissue Type Adherent Slough -Structure Exposed None/Limited to Skin Breakdown -Texture (Jessie-wound Skin Appearance) Induration Localized Edema -Moisture (Jessie-wound Skin Appearance Weeping ) -Color (Jessie-wound Skin Appearance) No Abnormality Erythema -Temperature (Jessie-wound Skin No Abnormality Appearance) (Pt Warm) -Tenderness on Palpation (Jessie-wound No Skin Appearance) -Ulcer Cleansing Rinsed/ Irrigated with Saline -Foul Odor after Cleansing No -Anesthetic Used 4% Lidocaine Solution [Edema Assessment] -Lower Limb Edema Present Yes -Right Calf (cm) 43.8 -Right Ankle (cm) 27.5 -Left Calf (cm) 44.0 -Left Ankle (cm) 28.3 [id number] - Nurse 2 - General Ulcer CM Notes Start: 01/16/18 09:24 Freq: Status: Active Protocol: Activity Type Activity Date Activity User E-Sign Co-Sign Detail Recorded Client Recorded Date Recorded By Document 01/16/18 11:05 DV [id number] 01/16/18 11:26 DV 01/16/18 11:05 Wound Center Nurse 2 [Procedure/Treatment] #2 MEDIAL LLE CLUSTER -Time 11:06 -Correct Patient Yes -Correct Side, Site, Position Yes -Correct Procedure Yes -Procedure Performed Yes -Type of Procedure Debridement -Clinical Debridement Subcutaneous -Post Debridement Size (cm) - Length 6.0 -Post Debridement Size (cm) - Width 2.7 -Post Debridement Size (cm) - Depth 0.2 -Total Square Cm 16.20 -Wound/Ulcer Outcome Not Healed -Ulcer Cleansing Rinsed/ Irrigated with Saline -Foul Odor after Cleansing No -Bioengineered Tissue No -Bleeding Controlled with Pressure -Treatment Response Procedure Tolerated Well #1 LEFT AMOS -Time 11:09 -Correct Patient Yes -Correct Side, Site, Position Yes -Correct Procedure Yes -Procedure Performed Yes -Type of Procedure Debridement -Clinical Debridement Subcutaneous -Post Debridement Size (cm) - Length 5.0 -Post Debridement Size (cm) - Width 3.0 -Post Debridement Size (cm) - Depth 0.1 -Total Square Cm 15.00 -Wound/Ulcer Outcome Not Healed -Ulcer Cleansing Rinsed/ Irrigated with Saline -Foul Odor after Cleansing No -Bioengineered Tissue No -Topical Lidocaine (%) 4 -Lidocaine (ml) 5 -Bleeding Controlled with NA -Treatment Response Procedure Tolerated Well [See Physician Procedure note for Specifics] Pain Scale: 0-10 Numeric [Pain] -Is Patient Pain Free? Yes Musculoskeletal: No Muscle Wasting Neurological: Cranial nerves II-XII grossly intact Psych/Mental Status: Normal Affect Debridement Note Post-Debridement Measurements/Treatment [id number] - Nurse 2 - General Ulcer CM Notes Start: 01/16/18 09:24 Freq: Status: Active Protocol: Activity Type Activity Date Activity User E-Sign Co-Sign Detail Recorded Client Recorded Date Recorded By Document 01/16/18 11:05 DV [id number] 01/16/18 11:26 DV 01/16/18 11:05 Wound Center Nurse 2 #2 MEDIAL LLE CLUSTER -Time 11:06 -Correct Patient Yes -Correct Side, Site, Position Yes -Correct Procedure Yes -Procedure Performed Yes -Type of Procedure Debridement -Clinical Debridement Subcutaneous -Post Debridement Size (cm) - Length 6.0 -Post Debridement Size (cm) - Width 2.7 -Post Debridement Size (cm) - Depth 0.2 -Total Square Cm 16.20 -Wound/Ulcer Outcome Not Healed -Ulcer Cleansing Rinsed/ Irrigated with Saline -Foul Odor after Cleansing No -Bioengineered Tissue No -Bleeding Controlled with Pressure -Treatment Response Procedure Tolerated Well #1 LEFT AMOS -Time 11:09 -Correct Patient Yes -Correct Side, Site, Position Yes -Correct Procedure Yes -Procedure Performed Yes -Type of Procedure Debridement -Clinical Debridement Subcutaneous -Post Debridement Size (cm) - Length 5.0 -Post Debridement Size (cm) - Width 3.0 -Post Debridement Size (cm) - Depth 0.1 -Total Square Cm 15.00 -Wound/Ulcer Outcome Not Healed -Ulcer Cleansing Rinsed/ Irrigated with Saline -Foul Odor after Cleansing No -Bioengineered Tissue No -Topical Lidocaine (%) 4 -Lidocaine (ml) 5 -Bleeding Controlled with NA -Treatment Response Procedure Tolerated Well Pain Scale: 0-10 Numeric Is Patient Pain Free? Yes Wound debrided: Left Amos Wound Grade/Stage: Leigh I Type of Debridement: Excisional debridement Anesthesia Used: 4% Lidocaine Solution Depth: Down to and including healthy tissue, in the subcutaneous layer Percentage of wound debrided: 100 Instrument Used: 5mm curette Tissue Removed: Slough and devitalized tissue Severity: Fat Layer Exposed Amount of bleeding with debridement: Mild Bleeding Controlled with: Pressure Patient tolerated procedure well - Additional Wound Wound debrided: Left lower extremity medial ( Cluster ) Wound Grade/Stage: Leigh I Type of Debridement: Excisional debridement Anesthesia Used: 4% Lidocaine Solution Depth: Down to and including healthy tissue, in the subcutaneous layer Percentage of wound debrided: 100 Instrument Used: 5mm curette Tissue Removed: Slough and devitalized tissue Severity: Fat Layer Exposed Amount of bleeding with debridement: Mild Bleeding Controlled with: Pressure Patient tolerated procedure: Patient tolerated procedure well Assessment/Plan Active Problems (Last Reviewed 10/01/17 @ 09:34 by Sandy Valdez) Ulcer of left lower extremity with fat layer exposed (Acute) Venous insufficiency of both lower extremities (Acute) Type 2 diabetes mellitus (Chronic) Assessment: Left lower extremity ulcer most likely secondary to venous insufficiency. Diabetes mellitus type 2, poorly controlled. Bilateral lower extremity venous insufficiency. Plan: Ms. Jovel since with a three-week wound with no significant wound care over the last 3 weeks. She has applied Band-Aids over most open areas. Wounds with increased/significant drainage. Debridement of all ulcers done as documented above. Procedure was well-tolerated. Apply Promogran to both surfaces daily with ABD over top. Single layer Tubigrip for edema management until venous and vascular studies are done. Patient also advised to take her diuretics as recommended by her PCP. Cultures were also taken. CBC, CMP, prealbumin and A1c ordered. Patient advised to elevate lower extremity when seated and when in bed. Increase protein intake/supplements recommended. Follow-up with PCP for optimal blood sugar management. Follow-up in 1 week. Advised to call with any questions or concerns. This note was generated with [employer] dictation software. It may contain incorrect words, spelling, and punctuation that were not noted in checking the note before signing.
== END 2018-01-17 23:59 ==
LOC: WC 08:17
PROVIDERS: Family Provider Family Medicine; PCP Family Medicine; Visit Provider Internal Medicine
DX: E11.622 Type 2 diabetes mellitus with other skin ulcer (principal); E11.51 Type 2 diabetes mellitus with diabetic peripheral angiopathy without gangrene; M79.89 Other specified soft tissue disorders; I48.0 Paroxysmal atrial fibrillation; Z95.2 Presence of prosthetic heart valve; E78.5 Hyperlipidemia, unspecified; Z79.899 Other long term (current) drug therapy; Z79.82 Long term (current) use of aspirin; E11.65 Type 2 diabetes mellitus with hyperglycemia
CPT/HCPCS: 11042; 11045; 83036; 84134; 85025; 87070; 87075; 87077; 87186; 87205; 99213; G0463

== ENCOUNTER → 2018-02-08 11:11 | Outpatient (CLI) | payer MEDICARE, OTHER, SELFPAY | PROVIDERS: Visit Provider Family Medicine | DX: R30.0 Dysuria (principal) | CPT/HCPCS: 87086; 87088 ==

== ENCOUNTER 2018-02-15 14:30 | Outpatient (RCR) | payer MEDICARE, OTHER, SELFPAY ==
[2018-01-18 01:18] VITALS: BP 124/64; PULSE 65; RESP 20; TEMP 36.7
[2018-01-30 10:43] VITALS: BP 101/73; PULSE 75; RESP 18; TEMP 36.2
--- NOTE | 2018-01-30 13:17 | PCM.WC.PN ---
(1) Ulcer of left lower extremity with fat layer exposed Status: Acute Current Visit: Yes Code(s): L97.922 - Non-pressure chronic ulcer of unspecified part of left lower leg with fat layer exposed (2) Ulcer of right lower extremity with fat layer exposed Status: Acute Current Visit: Yes Code(s): L97.912 - Non-pressure chronic ulcer of unspecified part of right lower leg with fat layer exposed (3) Venous insufficiency of both lower extremities Status: Acute Current Visit: Yes Code(s): I87.2 - Venous insufficiency (chronic) (peripheral) (4) Type 2 diabetes mellitus Status: Chronic Current Visit: Yes Qualifiers: Code(s): E11.9 - Type 2 diabetes mellitus without complications Type of Wound Date of Service: 01/30/18 Chief Complaint: Left lower extremity ulcers. Bilateral lower extremity swelling. History of Wound: Ms. Jovel 20-year-old who presents to the wound center due to nonhealing left lower extremity wounds/ulcers. Exact etiology is unknown however patient believes it started about 3 weeks ago. She has had no significant wound care but has covered the wound surfaces with Band-Aids. She has noted increased drainage from the wound of clear substance. She was recently seen by primary care physician and started on Augmentin. She has had no cultures done. She feels well otherwise and denies chills, fever, nausea, vomiting or any change in her bowel habit. She is not very compliant with her diabetic care. Progress of Wound: Improvement of edema with wraps. No new concerns at this time. - Physical Exam Vital Signs Temp Pulse Resp BP 97.1 F L 75 18 101/73 01/30/18 10:43 01/30/18 10:43 01/30/18 10:43 01/30/18 10:43 General: Alert, Oriented x3, Cooperative, No apparent distress HEENT: Atraumatic Oral: Moist Mucosa Neck: Supple Lungs: Normal air movement Abdomen: Non Tender Extremities: Edema Skin: Ulcer/ Wound Wound Measurements and Assessment WC - Nurse 1 - General Ulcer Measurement Start: 01/30/18 10:43 Freq: Status: Active Protocol: Activity Type Activity Date Activity User E-Sign Co-Sign Detail Recorded Client Recorded Date Recorded By Document 01/30/18 10:43 VALDEMAR [id number] 01/30/18 11:00 VALDEMAR 01/30/18 10:43 Wound Center Nurse 1 [Ulcer Assessment] #3 RT LAT LE -Combined with other wound No -Current Size (cm) - Length 2.0 -Current Size (cm) - Width 0.9 -Current Size (cm) - Depth 0.1 -Total Square Cm 1.80 -Date of Last Picture (Recall this 01/30/18 field) -Photo Taken Yes -Epithelialization None Present -Tunneling No -Undermining/Tunneling No -Circular Undermining No -Classification - Thickness Unclassifiable (Eschar Covered ) -Exudate Amt None Present (0 %) -Wound Margin Distinct, Outline Attached -Granulation Amt None Present (0 %) -Granulation Quality N/A -Slough/Fibrin Yes -Necrosis Amt None Present (0 %) -Necrotic Tissue Type Eschar -Structure Exposed None/Limited to Skin Breakdown -Texture (Jessie-wound Skin Appearance) No Abnormality -Moisture (Jessie-wound Skin Appearance No Abnormality ) -Color (Jessie-wound Skin Appearance) No Abnormality -Temperature (Jessie-wound Skin No Abnormality Appearance) (Pt Warm) -Tenderness on Palpation (Jessie-wound Yes Skin Appearance) -Ulcer Cleansing Wound Cleanser -Foul Odor after Cleansing No -Anesthetic Used 4% Lidocaine Solution #2 MEDIAL LLE CLUSTER -Combined with other wound No -Current Size (cm) - Length 3.2 -Current Size (cm) - Width 1.4 -Current Size (cm) - Depth 0.1 -Total Square Cm 4.48 -Date of Last Picture (Recall this 01/16/18 field) -Photo Taken No -Epithelialization Small 1-33% -Tunneling No -Undermining/Tunneling No -Circular Undermining No -Classification - Thickness Partial Thickness -Exudate Amt Medium (34-66%) -Exudate Type Serosanguineous -Wound Margin Distinct, Outline Attached -Granulation Amt Small (1-33%) -Granulation Quality Pale Red -Slough/Fibrin Yes -Necrosis Amt Small (1-33%) -Necrotic Tissue Type Adherent Slough -Structure Exposed None/Limited to Skin Breakdown -Texture (Jessie-wound Skin Appearance) No Abnormality -Moisture (Jessie-wound Skin Appearance No Abnormality ) -Color (Jessie-wound Skin Appearance) No Abnormality -Temperature (Jessie-wound Skin No Abnormality Appearance) (Pt Warm) -Tenderness on Palpation (Jessie-wound Yes Skin Appearance) -Ulcer Cleansing Wound Cleanser -Foul Odor after Cleansing No -Anesthetic Used 4% Lidocaine Solution #1 LEFT AMOS -Combined with other wound No -Current Size (cm) - Length 4.9 -Current Size (cm) - Width 1.5 -Current Size (cm) - Depth 0.1 -Total Square Cm 7.35 -Date of Last Picture (Recall this 01/16/18 field) -Photo Taken No -Epithelialization None Present -Tunneling No -Undermining/Tunneling No -Circular Undermining No -Classification - Thickness Partial Thickness -Exudate Amt Medium (34-66%) -Exudate Type Serosanguineous -Wound Margin Distinct, Outline Attached -Granulation Amt None Present (0 %) -Granulation Quality N/A -Slough/Fibrin Yes -Necrosis Amt Medium (34-66%) -Necrotic Tissue Type Eschar -Structure Exposed None/Limited to Skin Breakdown -Texture (Jessie-wound Skin Appearance) No Abnormality -Moisture (Jessie-wound Skin Appearance No Abnormality ) -Color (Jessie-wound Skin Appearance) No Abnormality -Temperature (Jessie-wound Skin No Abnormality Appearance) (Pt Warm) -Tenderness on Palpation (Jessie-wound Yes Skin Appearance) -Ulcer Cleansing Wound Cleanser -Foul Odor after Cleansing No -Anesthetic Used 4% Lidocaine Solution [Edema Assessment] -Lower Limb Edema Present Yes -Right Calf (cm) 35.5 -Right Ankle (cm) 25 -Left Calf (cm) 34.5 -Left Ankle (cm) 24.8 WC - Nurse 2 - General Ulcer CM Notes Start: 01/30/18 10:43 Freq: Status: Active Protocol: Activity Type Activity Date Activity User E-Sign Co-Sign Detail Recorded Client Recorded Date Recorded By Document 01/30/18 11:25 DV [id number] 01/30/18 11:45 DV 01/30/18 11:25 Wound Center Nurse 2 [Procedure/Treatment] #3 RT LAT LE -Time 11:28 -Correct Patient Yes -Correct Side, Site, Position Yes -Correct Procedure Yes -Procedure Performed Yes -Type of Procedure Debridement -Clinical Debridement Subcutaneous -Post Debridement Size (cm) - Length 4.4 -Post Debridement Size (cm) - Width 1.0 -Post Debridement Size (cm) - Depth 0.2 -Total Square Cm 4.40 -Wound/Ulcer Outcome Not Healed -Ulcer Cleansing Rinsed/ Irrigated with Saline -Foul Odor after Cleansing No -Bioengineered Tissue No -Bleeding Controlled with Pressure -Treatment Response Procedure Tolerated Well #2 MEDIAL LLE CLUSTER -Time 11:28 -Correct Patient Yes -Correct Side, Site, Position Yes -Correct Procedure Yes -Procedure Performed Yes -Type of Procedure Debridement -Clinical Debridement Subcutaneous -Post Debridement Size (cm) - Length 5.5 -Post Debridement Size (cm) - Width 3.5 -Post Debridement Size (cm) - Depth 0.2 -Total Square Cm 19.25 -Wound/Ulcer Outcome Not Healed -Ulcer Cleansing Rinsed/ Irrigated with Saline -Foul Odor after Cleansing No -Bioengineered Tissue No -Bleeding Controlled with Pressure -Treatment Response Procedure Tolerated Well #1 LEFT AMOS -Time 11:27 -Correct Patient Yes -Correct Side, Site, Position Yes -Correct Procedure Yes -Procedure Performed Yes -Type of Procedure Debridement -Clinical Debridement Subcutaneous -Post Debridement Size (cm) - Length 3.6 -Post Debridement Size (cm) - Width 1.5 -Post Debridement Size (cm) - Depth 0.4 -Total Square Cm 5.40 -Wound/Ulcer Outcome Not Healed -Ulcer Cleansing Rinsed/ Irrigated with Saline -Foul Odor after Cleansing No -Bioengineered Tissue No -Bleeding Controlled with Pressure -Treatment Response Procedure Tolerated Well [See Physician Procedure note for Specifics] Pain Scale: 0-10 Numeric [Pain] -Is Patient Pain Free? Yes Musculoskeletal: No Muscle Wasting Neurological: Cranial nerves II-XII grossly intact Psych/Mental Status: Normal Affect Debridement Note Post-Debridement Measurements/Treatment WC - Nurse 2 - General Ulcer CM Notes Start: 01/30/18 10:43 Freq: Status: Active Protocol: Activity Type Activity Date Activity User E-Sign Co-Sign Detail Recorded Client Recorded Date Recorded By Document 01/30/18 11:25 DV [id number] 01/30/18 11:45 DV 01/30/18 11:25 Wound Center Nurse 2 #3 RT LAT LE -Time 11:28 -Correct Patient Yes -Correct Side, Site, Position Yes -Correct Procedure Yes -Procedure Performed Yes -Type of Procedure Debridement -Clinical Debridement Subcutaneous -Post Debridement Size (cm) - Length 4.4 -Post Debridement Size (cm) - Width 1.0 -Post Debridement Size (cm) - Depth 0.2 -Total Square Cm 4.40 -Wound/Ulcer Outcome Not Healed -Ulcer Cleansing Rinsed/ Irrigated with Saline -Foul Odor after Cleansing No -Bioengineered Tissue No -Bleeding Controlled with Pressure -Treatment Response Procedure Tolerated Well #2 MEDIAL LLE CLUSTER -Time 11:28 -Correct Patient Yes -Correct Side, Site, Position Yes -Correct Procedure Yes -Procedure Performed Yes -Type of Procedure Debridement -Clinical Debridement Subcutaneous -Post Debridement Size (cm) - Length 5.5 -Post Debridement Size (cm) - Width 3.5 -Post Debridement Size (cm) - Depth 0.2 -Total Square Cm 19.25 -Wound/Ulcer Outcome Not Healed -Ulcer Cleansing Rinsed/ Irrigated with Saline -Foul Odor after Cleansing No -Bioengineered Tissue No -Bleeding Controlled with Pressure -Treatment Response Procedure Tolerated Well #1 LEFT AMOS -Time 11:27 -Correct Patient Yes -Correct Side, Site, Position Yes -Correct Procedure Yes -Procedure Performed Yes -Type of Procedure Debridement -Clinical Debridement Subcutaneous -Post Debridement Size (cm) - Length 3.6 -Post Debridement Size (cm) - Width 1.5 -Post Debridement Size (cm) - Depth 0.4 -Total Square Cm 5.40 -Wound/Ulcer Outcome Not Healed -Ulcer Cleansing Rinsed/ Irrigated with Saline -Foul Odor after Cleansing No -Bioengineered Tissue No -Bleeding Controlled with Pressure -Treatment Response Procedure Tolerated Well Pain Scale: 0-10 Numeric Is Patient Pain Free? Yes Wound debrided: Left Amos Wound Grade/Stage: Leigh II Type of Debridement: Excisional debridement Anesthesia Used: 4% Lidocaine Solution Depth: Down to and including healthy tissue, in the subcutaneous layer Percentage of wound debrided: 100 Instrument Used: 5mm curette, #15 blade, Forceps Tissue Removed: Eschar, Slough, Fibrin and devitalized tissue Severity: Fat Layer Exposed Amount of bleeding with debridement: Mild Bleeding Controlled with: Pressure Patient tolerated procedure well - Additional Wound Wound debrided: Left lower extremity medial cluster Wound Grade/Stage: Leigh I Type of Debridement: Excisional debridement Anesthesia Used: 4% Lidocaine Solution Depth: Down to and including healthy tissue, in the subcutaneous layer Percentage of wound debrided: 100 Instrument Used: 5mm curette Tissue Removed: Slough and devitalized tissue Severity: Fat Layer Exposed Amount of bleeding with debridement: Mild Bleeding Controlled with: Pressure Patient tolerated procedure: Patient tolerated procedure well - Additional Wound Wound debrided: Right lower extremity lateral Wound Grade/Stage: Leigh I Type of Debridement: Excisional debridement Anesthesia Used: 4% Lidocaine Solution Depth: Down to and including healthy tissue, in the subcutaneous layer Percentage of wound debrided: 100 Instrument Used: 5mm curette, #15 blade, Forceps Tissue Removed: Slough and devitalized tissue Severity: Fat Layer Exposed Amount of bleeding with debridement: Mild Bleeding Controlled with: Pressure Patient tolerated procedure: Patient tolerated procedure well Assessment/Plan Active Problems (Last Reviewed 10/01/17 @ 09:34 by Sandy Valdez) Ulcer of left lower extremity with fat layer exposed (Acute) Venous insufficiency of both lower extremities (Acute) Ulcer of right lower extremity with fat layer exposed (Acute) Type 2 diabetes mellitus (Chronic) Assessment: Left lower extremity ulcer most likely secondary to venous insufficiency. Diabetes mellitus type 2, poorly controlled. Bilateral lower extremity venous insufficiency. Plan: Unroofing of the left amos wound done today with somewhat purulent discharge noted underneath. Some unroofing of the right lateral lower extremity was also done no discharge appreciated. Cultures taken. Debridement done as documented above. Procedure was well-tolerated. Continue Nela to all ulcers with right 3M wraps. Continued increased protein intake/supplements recommended. Elevate lower extremity when seated and in bed. Follow-up with PCP for optimal blood sugar management. Follow-up in 1 week. Advised to call with any questions or concerns. This note was generated with [employer] dictation software. It may contain incorrect words, spelling, and punctuation that were not noted in checking the note before signing.
--- NOTE | 2018-01-31 11:58 | WC ---
pt came to wound center pt c/o left #m aching at top near knee. 3m has no wrinkles in wrap bu slighly rolled near bend of knee 3m trimmed slightly for comfort . pt told to call wound center if any other problems arise.
[2018-02-01 10:38] VITALS: BP 136/55; PULSE 76; RESP 18; TEMP 36.4
--- NOTE | 2018-02-06 09:08 | VDLE_ITS ---
Reason For Study: Non-healing wounds RIGHT LEFT CFV is compressible, spontaneous, phasic, CFV is compressible, spontaneous, phasic, competent and demonstrates normal competent, and demonstrates normal augmentation. augmentation. FV is compressible, spontaneous, phasic, FV is compressible, spontaneous, phasic, competent and demonstrates normal competent and demonstrates normal augmentation. augmentation. POP V is compressible, spontaneous, phasic, POP V is compressible, spontaneous, phasic, competent and demonstrates normal competent and demonstrates normal augmentation. augmentation. T/P Trunk is compressible. T/P Trunk is compressible. PTV is compressible. PTV is compressible. RT PerV is compressible. LT PerV is compressible. SFJ is competent SFJ is INCOMPETENT GSV is competent GSV is competent ASV below knee is INCOMPETENT with reflux SSV is competent. greater than .5 sec and diameter of .39 x .42 cm SSV is INCOMPETENT with reflux greater than .5 sec and diameter of .35 x .37 cm. SSV is partially compressible with bright intraluminal echoes. Procedure Exam performed in department. A preliminary report was called and/or faxed to [facility]. Interpretation Summary Deep veins of the lower extremities are bilaterally patent and compressible segmentally. There is no evidence of deep vein thrombosis on either side. Valvular competence appears intact within the proximal deep venous systems bilaterally. The greater saphenous veins appear bilaterally patent and compressible segmentally. The right sapheno-femoral junction is competent . The left sapheno- femoral junction is incompetent . Valvular competence appears to be intact segmentally within the greater saphenous veins bilaterally. The right small saphenous vein is incompetent and demonstrates chronic venous changes. The left small saphenous vein is patent and competent. The right accessory saphenous vein below the knee is incompetent. Ordering Physician: Martha De Santiago Referring Physician: Martha De Santiago Performed By: Mckenna, Cindy, RVT
[2018-02-06 11:11] VITALS: BP 144/78; PULSE 71; RESP 20; TEMP 36.3
--- NOTE | 2018-02-06 12:29 | LEAS ---
Arterial Study - Arterial Study Arterial Study: This is an 82-year-old female with a history of diabetes mellitus and hyperlipidemia. She presents with chronic, nonhealing bilateral lower extremity wounds. Suspecting the presence of atherosclerotic peripheral arterial occlusive disease, the patient was brought to the noninvasive vascular laboratory at this time for the purpose of bilateral noninvasive lower extremity arterial assessment. Doppler signal assessment was used to evaluate the pulses at ankle level bilaterally. The right posterior tibial pulse was biphasic. The right dorsalis pedis pulse was triphasic. The left posterior tibial pulse was triphasic. The left dorsalis pedis pulse was biphasic. Segmental limb pressures were obtained bilaterally. The right ankle pressure, as determined by posterior tibial pulse, was measured at 121 mmHg. The right ankle pressure, as determined by dorsalis pedis pulse, was measured at 170 mmHg. The right digital pressure was measured at 44 mmHg. The left ankle pressure, as determined by posterior tibial pulse, was measured at 119 mmHg. The left ankle pressure, as determined by dorsalis pedis pulse, was measured at 146 mmHg. The left digital pressure was measured at 32 mmHg. Pulse-volume recordings were obtained bilaterally and segmentally. Waveform amplitudes appeared to be satisfactory at all levels bilaterally, but for the left digital level, which was markedly diminished. Resting ankle-brachial indices were calculated bilaterally. the resting right ankle-brachial index was calculated to be 1.47. The resting left ankle-brachial index was calculated to be 1.26. Digital-brachial indices were calculated bilaterally. The right digital-brachial index was calculated to be 0.38. The left digital-brachial index was calculated to be 0.28. Impression: Based upon the findings of this resting noninvasive lower extremity arterial study, arterial perfusion to ankle level appears to be relatively normal bilaterally. Biphasic and triphasic waveforms were noted at ankle level bilaterally. The resting right ankle-brachial index is supra-normal, which suggests arterial calcification rendering the arterial tree noncompressible. The resting left ankle-brachial index is normal. 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 Clinical correlation is advised.
--- NOTE | 2018-02-06 12:37 | LEAS_ITS ---
Arterial Study - Arterial Study Arterial Study: This is an 82-year-old female with a history of diabetes mellitus and hyperlipidemia. She presents with chronic, nonhealing bilateral lower extremity wounds. Suspecting the presence of atherosclerotic peripheral arterial occlusive disease, the patient was brought to the noninvasive vascular laboratory at this time for the purpose of bilateral noninvasive lower extremity arterial assessment. Doppler signal assessment was used to evaluate the pulses at ankle level bilaterally. The right posterior tibial pulse was biphasic. The right dorsalis pedis pulse was triphasic. The left posterior tibial pulse was triphasic. The left dorsalis pedis pulse was biphasic. Segmental limb pressures were obtained bilaterally. The right ankle pressure, as determined by posterior tibial pulse, was measured at 121 mmHg. The right ankle pressure, as determined by dorsalis pedis pulse, was measured at 170 mmHg. The right digital pressure was measured at 44 mmHg. The left ankle pressure, as determined by posterior tibial pulse, was measured at 119 mmHg. The left ankle pressure, as determined by dorsalis pedis pulse, was measured at 146 mmHg. The left digital pressure was measured at 32 mmHg. Pulse-volume recordings were obtained bilaterally and segmentally. Waveform amplitudes appeared to be satisfactory at all levels bilaterally, but for the left digital level, which was markedly diminished. Resting ankle-brachial indices were calculated bilaterally. the resting right ankle-brachial index was calculated to be 1.47. The resting left ankle- brachial index was calculated to be 1.26. Digital-brachial indices were calculated bilaterally. The right digital- brachial index was calculated to be 0.38. The left digital-brachial index was calculated to be 0.28. Impression: Based upon the findings of this resting noninvasive lower extremity arterial study, arterial perfusion to ankle level appears to be relatively normal bilaterally. Biphasic and triphasic waveforms were noted at ankle level bilaterally. The resting right ankle-brachial index is supra-normal, which suggests arterial calcification rendering the arterial tree noncompressible. The resting left ankle-brachial index is normal. 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 Clinical correlation is advised.
--- NOTE | 2018-02-06 12:43 | PN.PCM_ITS ---
(1) Ulcer of left lower extremity with fat layer exposed Status: Acute Current Visit: Yes Code(s): L97.922 - Non-pressure chronic ulcer of unspecified part of left lower leg with fat layer exposed (2) Ulcer of right lower extremity with fat layer exposed Status: Acute Current Visit: Yes Code(s): L97.912 - Non-pressure chronic ulcer of unspecified part of right lower leg with fat layer exposed (3) Venous insufficiency of both lower extremities Status: Acute Current Visit: Yes Code(s): I87.2 - Venous insufficiency ( chronic) (peripheral) (4) Type 2 diabetes mellitus Status: Chronic Current Visit: Yes Qualifiers: Code(s): E11.9 - Type 2 diabetes mellitus without complications Type of Wound Date of Service: 02/06/18 Chief Complaint: Left lower extremity ulcers. Bilateral lower extremity swelling. History of Wound: Ms. Jovel 20-year-old who presents to the wound center due to nonhealing left lower extremity wounds/ulcers. Exact etiology is unknown however patient believes it started about 3 weeks ago. She has had no significant wound care but has covered the wound surfaces with Band-Aids. She has noted increased drainage from the wound of clear substance. She was recently seen by primary care physician and started on Augmentin. She has had no cultures done. She feels well otherwise and denies chills, fever, nausea, vomiting or any change in her bowel habit. She is not very compliant with her diabetic care. Progress of Wound: Stable. Yet to start Abx prescribed per culture. - Physical Exam Vital Signs Temp Pulse Resp BP 97.3 F L 71 20 H 144/78 H 02/06/18 11:11 02/06/18 11:11 02/06/18 11:11 02/06/18 11:11 General: Alert, Oriented x3, Cooperative, No apparent distress HEENT: Atraumatic Oral: Moist Mucosa Neck: Supple Lungs: Normal air movement Abdomen: Non Tender Extremities: Edema Skin: Ulcer/ Wound Wound Measurements and Assessment WC - Nurse 1 - General Ulcer Measurement Start: 01/30/18 10:43 Freq: Status: Active Protocol: Activity Type Activity Date Activity User E-Sign Co-Sign Detail Recorded Client Recorded Date Recorded By Document 02/06/18 11:11 [id number] 02/06/18 11:37 VALDEMAR 02/06/18 11:11 Wound Center Nurse 1 [Ulcer Assessment] #3 RT LAT LE -Combined with other wound No -Current Size (cm) - Length 2.0 -Current Size (cm) - Width 1.0 -Current Size (cm) - Depth 0 -Total Square Cm 2.00 -Date of Last Picture (Recall this 01/23/18 field) -Photo Taken No -Epithelialization None Present -Tunneling No -Undermining/Tunneling No -Circular Undermining No -Classification - Thickness Unclassifiable (Eschar Covered ) -Change in Wound Grade/Stage No Query Text:If change please identify the Stage/Grade in the comment (ie. S2 G3) -Exudate Amt None Present (0 %) -Wound Margin Distinct, Outline Attached -Granulation Amt None Present (0 %) -Granulation Quality N/A -Slough/Fibrin No -Necrosis Amt Small (1-33%) -Necrotic Tissue Type Eschar -Structure Exposed None/Limited to Skin Breakdown -Texture (Jessie-wound Skin Appearance) No Abnormality -Moisture (Jessie-wound Skin Appearance No Abnormality ) -Color (Jessie-wound Skin Appearance) No Abnormality -Temperature (Jessie-wound Skin No Abnormality Appearance) (Pt Warm) -Tenderness on Palpation (Jessie-wound No Skin Appearance) -Ulcer Cleansing Rinsed/ Irrigated with Saline -Foul Odor after Cleansing No -Anesthetic Used 5% Lidocaine Gel #2 MEDIAL LLE CLUSTER -Combined with other wound No -Current Size (cm) - Length 2.2 -Current Size (cm) - Width 1.2 -Current Size (cm) - Depth 0.1 -Total Square Cm 2.64 -Date of Last Picture (Recall this 01/23/18 field) -Photo Taken No -Epithelialization Small 1-33% -Tunneling No -Undermining/Tunneling No -Circular Undermining No -Classification - Thickness Partial Thickness -Exudate Amt Medium (34-66%) -Exudate Type Serosanguineous -Wound Margin Distinct, Outline Attached -Granulation Amt Small (1-33%) -Granulation Quality Red -Slough/Fibrin Yes -Necrosis Amt Medium (34-66%) -Necrotic Tissue Type Adherent Slough -Structure Exposed None/Limited to Skin Breakdown -Texture (Jessie-wound Skin Appearance) No Abnormality -Moisture (Jessie-wound Skin Appearance No Abnormality ) -Color (Jessie-wound Skin Appearance) No Abnormality -Temperature (Jessie-wound Skin No Abnormality Appearance) (Pt Warm) -Tenderness on Palpation (Jessie-wound Yes Skin Appearance) -Ulcer Cleansing Rinsed/ Irrigated with Saline -Foul Odor after Cleansing No -Anesthetic Used 5% Lidocaine Gel #1 LEFT WALLER -Combined with other wound No -Current Size (cm) - Length 5.0 -Current Size (cm) - Width 2.0 -Current Size (cm) - Depth 0.3 -Total Square Cm 10.00 -Date of Last Picture (Recall this 01/23/18 field) -Photo Taken No -Epithelialization None Present -Tunneling No -Undermining/Tunneling No -Circular Undermining No -Classification - Thickness Partial Thickness -Change in Wound Grade/Stage No Query Text:If change please identify the Stage/Grade in the comment (ie. S2 G3) -Exudate Amt Medium (34-66%) -Exudate Type Serosanguineous -Wound Margin Distinct, Outline Attached -Granulation Amt None Present (0 %) -Granulation Quality N/A -Slough/Fibrin Yes -Necrosis Amt Small (1-33%) -Necrotic Tissue Type Adherent Slough -Structure Exposed None/Limited to Skin Breakdown -Texture (Jessie-wound Skin Appearance) No Abnormality -Moisture (Jessie-wound Skin Appearance No Abnormality ) -Color (Jessie-wound Skin Appearance) No Abnormality -Temperature (Jessie-wound Skin No Abnormality Appearance) (Pt Warm) -Tenderness on Palpation (Jessie-wound Yes Skin Appearance) -Ulcer Cleansing Rinsed/ Irrigated with Saline -Foul Odor after Cleansing No -Anesthetic Used 5% Lidocaine Gel [Edema Assessment] -Lower Limb Edema Present Yes -Right Calf (cm) 40.5 -Right Ankle (cm) 23.5 -Left Calf (cm) 38.0 -Left Ankle (cm) 24.0 WC - Nurse 2 - General Ulcer CM Notes Start: 01/30/18 10:43 Freq: Status: Active Protocol: Activity Type Activity Date Activity User E-Sign Co-Sign Detail Recorded Client Recorded Date Recorded By Document 02/06/18 11:52 [email or web address] 02/06/18 12:05 02/06/18 11:52 Wound Center Nurse 2 [Procedure/Treatment] #3 RT LAT LE -Time 11:54 -Correct Patient Yes -Correct Side, Site, Position Yes -Correct Procedure Yes -Procedure Performed Yes -Type of Procedure Debridement -Clinical Debridement Subcutaneous -Post Debridement Size (cm) - Length 1.0 -Post Debridement Size (cm) - Width 0.9 -Post Debridement Size (cm) - Depth 0.2 -Total Square Cm 0.90 -Wound/Ulcer Outcome Not Healed -Ulcer Cleansing Rinsed/ Irrigated with Saline -Foul Odor after Cleansing No -Bioengineered Tissue No -Bleeding Controlled with Pressure -Treatment Response Procedure Tolerated Well #2 MEDIAL LLE CLUSTER -Time 11:54 -Correct Patient Yes -Correct Side, Site, Position Yes -Correct Procedure Yes -Procedure Performed Yes -Type of Procedure Debridement -Clinical Debridement Subcutaneous -Post Debridement Size (cm) - Length 2.8 -Post Debridement Size (cm) - Width 1.0 -Post Debridement Size (cm) - Depth 0.1 -Total Square Cm 2.80 -Wound/Ulcer Outcome Not Healed -Ulcer Cleansing Rinsed/ Irrigated with Saline -Foul Odor after Cleansing No -Bioengineered Tissue No -Bleeding Controlled with Pressure -Treatment Response Procedure Tolerated Well #1 LEFT WALLER -Time 11:54 -Correct Patient Yes -Correct Side, Site, Position Yes -Correct Procedure Yes -Procedure Performed Yes -Type of Procedure Debridement -Clinical Debridement Subcutaneous -Post Debridement Size (cm) - Length 5.3 -Post Debridement Size (cm) - Width 1.8 -Post Debridement Size (cm) - Depth 0.4 -Total Square Cm 9.54 -Wound/Ulcer Outcome Not Healed -Ulcer Cleansing Rinsed/ Irrigated with Saline -Foul Odor after Cleansing No -Bioengineered Tissue No -Bleeding Controlled with Pressure -Treatment Response Procedure Tolerated Well [See Physician Procedure note for Specifics] Pain Scale: 0-10 Numeric [Pain] -Is Patient Pain Free? Yes Musculoskeletal: No Muscle Wasting Neurological: Cranial nerves II-XII grossly intact Psych/Mental Status: Normal Affect Debridement Note Post-Debridement Measurements/Treatment WC - Nurse 2 - General Ulcer CM Notes Start: 01/30/18 10:43 Freq: Status: Active Protocol: Activity Type Activity Date Activity User E-Sign Co-Sign Detail Recorded Client Recorded Date Recorded By Document 01/30/18 11:25 DV [id number] 01/30/18 11:45 DV Document 02/06/18 11:52 [id number] 02/06/18 12:05 CS 01/30/18 02/06/18 11:25 11:52 Wound Center Nurse 2 #3 RT LAT LE -Time 11:28 11:54 -Correct Patient Yes Yes -Correct Side, Site, Position Yes Yes -Correct Procedure Yes Yes -Procedure Performed Yes Yes -Type of Procedure Debridement Debridement -Clinical Debridement Subcutaneous Subcutaneous -Post Debridement Size (cm) - Length 4.4 1.0 -Post Debridement Size (cm) - Width 1.0 0.9 -Post Debridement Size (cm) - Depth 0.2 0.2 -Total Square Cm 4.40 0.90 -Wound/Ulcer Outcome Not Healed Not Healed -Ulcer Cleansing Rinsed/ Rinsed/ Irrigated with Irrigated with Saline Saline -Foul Odor after Cleansing No No -Bioengineered Tissue No No -Bleeding Controlled with Pressure Pressure -Treatment Response Procedure Procedure Tolerated Well Tolerated Well #2 MEDIAL LLE CLUSTER -Time 11:28 11:54 -Correct Patient Yes Yes -Correct Side, Site, Position Yes Yes -Correct Procedure Yes Yes -Procedure Performed Yes Yes -Type of Procedure Debridement Debridement -Clinical Debridement Subcutaneous Subcutaneous -Post Debridement Size (cm) - Length 5.5 2.8 -Post Debridement Size (cm) - Width 3.5 1.0 -Post Debridement Size (cm) - Depth 0.2 0.1 -Total Square Cm 19.25 2.80 -Wound/Ulcer Outcome Not Healed Not Healed -Ulcer Cleansing Rinsed/ Rinsed/ Irrigated with Irrigated with Saline Saline -Foul Odor after Cleansing No No -Bioengineered Tissue No No -Bleeding Controlled with Pressure Pressure -Treatment Response Procedure Procedure Tolerated Well Tolerated Well #1 LEFT WALLER -Time 11:27 11:54 -Correct Patient Yes Yes -Correct Side, Site, Position Yes Yes -Correct Procedure Yes Yes -Procedure Performed Yes Yes -Type of Procedure Debridement Debridement -Clinical Debridement Subcutaneous Subcutaneous -Post Debridement Size (cm) - Length 3.6 5.3 -Post Debridement Size (cm) - Width 1.5 1.8 -Post Debridement Size (cm) - Depth 0.4 0.4 -Total Square Cm 5.40 9.54 -Wound/Ulcer Outcome Not Healed Not Healed -Ulcer Cleansing Rinsed/ Rinsed/ Irrigated with Irrigated with Saline Saline -Foul Odor after Cleansing No No -Bioengineered Tissue No No -Bleeding Controlled with Pressure Pressure -Treatment Response Procedure Procedure Tolerated Well Tolerated Well Pain Scale: 0-10 Numeric Is Patient Pain Free? Yes Yes Wound debrided: Left lower extremity lateral Wound Grade/Stage: Leigh II Type of Debridement: Excisional debridement Anesthesia Used: 4% Lidocaine Solution Depth: Down to and including healthy tissue, in the subcutaneous layer Percentage of wound debrided: 100 Instrument Used: 5mm curette Tissue Removed: Slough and devitalized tissue Severity: Fat Layer Exposed Amount of bleeding with debridement: Mild Bleeding Controlled with: Pressure Patient tolerated procedure well - Additional Wound Wound debrided: Left lowr extremity medial Wound Grade/Stage: Leigh I Type of Debridement: Excisional debridement Anesthesia Used: 4% Lidocaine Solution Depth: Down to and including healthy tissue, in the subcutaneous layer Percentage of wound debrided: 100 Instrument Used: 5mm curette Tissue Removed: Slough and devitalized tissue Severity: Fat Layer Exposed Amount of bleeding with debridement: Mild Bleeding Controlled with: Pressure Patient tolerated procedure: Patient tolerated procedure well - Additional Wound Wound debrided: Right lower extremity lateral Wound Grade/Stage: Leigh I Type of Debridement: Excisional debridement Anesthesia Used: 4% Lidocaine Solution Depth: Down to and including healthy tissue Percentage of wound debrided: 100 Instrument Used: 5mm curette Tissue Removed: Slough and devitalized tissue Severity: Fat Layer Exposed Amount of bleeding with debridement: Mild Bleeding Controlled with: Pressure Patient tolerated procedure: Patient tolerated procedure well Assessment/Plan Active Problems (Last Reviewed 10/01/17 @ 09:34 by Sandy Valdez) Ulcer of left lower extremity with fat layer exposed (Acute) Venous insufficiency of both lower extremities (Acute) Ulcer of right lower extremity with fat layer exposed (Acute) Type 2 diabetes mellitus (Chronic) Assessment: Left lower extremity ulcer most likely secondary to venous insufficiency. Diabetes mellitus type 2, poorly controlled. Bilateral lower extremity venous insufficiency. Plan: Debridement done as documented above. Procedure was well-tolerated. Continue Nela to all ulcers with right 3M wraps. Advised to start abx per culture. Choices limited due to drug/drug interaction. Continued increased protein intake/supplements recommended. Elevate lower extremity when seated and in bed. Follow-up with PCP for optimal blood sugar management. Nurse visit in 1 week. Advised to call with any questions or concerns. This note was generated with [employer] software. It may contain incorrect words, spelling, and punctuation that were not noted in checking the note before signing.
[2018-02-07 12:31] VITALS: BP 126/54; PULSE 76; RESP 16; TEMP 37.1
[2018-02-15 14:38] VITALS: BP 102/43; PULSE 78; RESP 18; TEMP 36.2
--- NOTE | 2018-02-15 19:06 | PCM.WC.HP ---
(1) Venous ulcers of both lower extremities Status: Chronic Current Visit: Yes Code(s): I87.2 - Venous insufficiency (chronic) (peripheral); L97.919 - Non-pressure chronic ulcer of unspecified part of right lower leg with unspecified severity; L97.929 - Non-pressure chronic ulcer of unspecified part of left lower leg with unspecified severity (2) Ulcer of left lower extremity with fat layer exposed Status: Chronic Current Visit: Yes Code(s): L97.922 - Non-pressure chronic ulcer of unspecified part of left lower leg with fat layer exposed (3) Venous insufficiency of both lower extremities Status: Chronic Current Visit: Yes Code(s): I87.2 - Venous insufficiency (chronic) (peripheral) (4) Ulcer of right lower extremity with fat layer exposed Status: Chronic Current Visit: Yes Code(s): L97.912 - Non-pressure chronic ulcer of unspecified part of right lower leg with fat layer exposed (5) Type 2 diabetes mellitus Status: Chronic Current Visit: Yes Qualifiers: Diabetes mellitus 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 Bilateral lower extremity swelling. History of Wound: Ms. Jovel 20-year-old who presents to the wound center due to nonhealing left lower extremity wounds/ulcers. Exact etiology is unknown however patient believes it started in early December. She has had no significant wound care but has covered the wound surfaces with Band-Aids. She has noted increased drainage from the wound of clear substance. She was recently seen by primary care physician and started on Augmentin. She has had no cultures done. She feels well otherwise and denies chills, fever, nausea, vomiting or any change in her bowel habit. She is not very compliant with her diabetic care. She is being seen for Dr. De Santiago in her absence for follow up treatment today. She has been tolerating 3M dressings and promogran. Is tolerating Clindamycin as well. Has a few doses left. Has missed some doses. Denies increased drainage, pain or fever or chills. Past Medical History Past Medical History: Chronic Problems (Last Reviewed 10/01/17 @ 09:34 by Sandy Valdez) HTN (hypertension) (Chronic) Anxiety and depression (Chronic) Ulcer of left lower extremity with fat layer exposed (Chronic) Venous insufficiency of both lower extremities (Chronic) Ulcer of right lower extremity with fat layer exposed (Chronic) Venous ulcers of both lower extremities (Chronic) H/O aortic valve replacement (Chronic ~06/20/16) Type 2 diabetes mellitus (Chronic) Paroxysmal atrial fibrillation (Chronic) Edema (Chronic) Dyspnea on exertion (Chronic) Shortness of breath (Chronic) History of aortic valve replacement with bioprosthetic valve (Chronic ~06/20/16) Hyperlipidemia (Chronic) Pulmonary hypertension (Chronic) Surgical History: - - S/P AVR, Carpal Tunnel Release, BL TKR, D+C. Allergies/Adverse Reactions: Allergies No Known Allergies Allergy (Verified 10/21/17 12:51) Home Medications: Ambulatory Orders Medication Instructions Recorded Atorvastatin Calcium [Lipitor] 20 mg PO QHS #0 tab 07/09/16 Omeprazole 20 mg PO DAILY PRN 01/12/17 potassium chloride ER 10 mEq 10 meq PO QDAY PRN #90 tab 08/30/17 tablet,extended release(part/cryst) aspirin 81 mg chewable tablet 81 mg PO QDAY tab 09/25/17 furosemide 40 mg tablet 40 mg PO QDAY PRN 10/01/17 glimepiride 4 mg tablet 4 mg PO BID tab 10/01/17 tolterodine ER 4 mg 4 mg PO QDAY 10/01/17 capsule,extended release 24 hr Metformin HCl [Glucophage] 1,000 mg PO BIDCM #60 tab 10/21/17 apixaban 5 mg tablet 5 mg PO BID #60 tab 11/05/17 lisinopril 10 mg tablet 5 mg PO QDAY tab 11/19/17 amiodarone 200 mg tablet 100 mg PO DAILY #30 tab 01/07/18 - Family History Paternal Family History: Family History (Last Reviewed 10/01/17 @ 09:34 by Sandy Valdez) Father CAD (coronary artery disease) Mother CAD (coronary artery disease) Dementia, Heart Disease Maternal Family History: Family History (Last Reviewed 10/01/17 @ 09:34 by Sandy Valdez) Father CAD (coronary artery disease) Mother CAD (coronary artery disease) Heart Disease Smoking Status: Never smoker Review of Systems Constitutional: Denies: Chills, Fever, Weight Change Eyes: Denies: Pain, Vision Change HEENT: Denies: Difficulty Hearing, Difficulty Swallowing, Sinus Congestion Cardiovascular: Denies: Chest Pain, Palpitations Respiratory: Denies: Cough, Shortness of Breath Gastrointestinal: Denies: Diarrhea, Nausea, Vomiting Genitourinary: Denies: Dysuria, Hematuria Musculoskeletal: Reports: Leg Pain Skin: Reports: Wounds Hematologic/ Lymphatic: Denies: Easy Bruising, Easy Bleeding - Physical Exam Vital Signs Temp Pulse Resp BP 97.1 F L 78 18 102/43 L 02/15/18 14:38 02/15/18 14:38 02/15/18 14:38 02/15/18 14:38 General: Alert, Oriented x3, Cooperative, No apparent distress HEENT: Atraumatic, Normocephalic Oral: Moist Mucosa Neck: Supple, No JVD Lungs: Clear to auscultation Cardiovascular: Regular rate, Regular Rhythm Abdomen: Soft, Non Tender Extremities: Edema Skin: Ulcer/ Wound Wound Measurements and Assessment WC - Nurse 1 - General Ulcer Measurement Start: 01/30/18 10:43 Freq: Status: Active Protocol: Activity Type Activity Date Activity User E-Sign Co-Sign Detail Recorded Client Recorded Date Recorded By Document 02/15/18 14:38 DL [id number] 02/15/18 14:47 DL 02/15/18 14:38 Wound Center Nurse 1 [Ulcer Assessment] #3 RT LAT LE -Current Size (cm) - Length 0.8 -Current Size (cm) - Width 0.9 -Current Size (cm) - Depth 0.2 -Total Square Cm 0.72 -Photo Taken No -Exudate Amt Small (1-33%) -Exudate Type Serosanguineous -Wound Margin Distinct, Outline Attached -Granulation Amt None Present (0 %) -Necrosis Amt Large (67-100%) -Necrotic Tissue Type Adherent Slough -Structure Exposed N/A -Texture (Jessie-wound Skin Appearance) No Abnormality -Moisture (Jessie-wound Skin Appearance Dry/Scaly ) -Color (Jessie-wound Skin Appearance) No Abnormality -Temperature (Jessie-wound Skin No Abnormality Appearance) (Pt Warm) -Ulcer Cleansing Wound Cleanser -Foul Odor after Cleansing No -Anesthetic Used 4% Lidocaine Solution #2 MEDIAL LLE CLUSTER -Current Size (cm) - Length 4.1 -Current Size (cm) - Width 2.3 -Current Size (cm) - Depth 0.1 -Total Square Cm 9.43 -Photo Taken No -Exudate Amt Small (1-33%) -Exudate Type Serosanguineous -Wound Margin Distinct, Outline Attached -Granulation Amt Small (1-33%) -Granulation Quality [place] -Necrosis Amt Large (67-100%) -Necrotic Tissue Type Adherent Slough -Structure Exposed N/A -Texture (Jessie-wound Skin Appearance) No Abnormality -Moisture (Jessie-wound Skin Appearance Dry/Scaly ) -Color (Jessie-wound Skin Appearance) No Abnormality -Temperature (Jessie-wound Skin No Abnormality Appearance) (Pt Warm) -Ulcer Cleansing Wound Cleanser -Foul Odor after Cleansing No -Anesthetic Used 4% Lidocaine Solution #1 LEFT BAILEY -Current Size (cm) - Length 4 -Current Size (cm) - Width 1.6 -Current Size (cm) - Depth 0.1 -Total Square Cm 6.4 -Photo Taken No -Exudate Amt Medium (34-66%) -Exudate Type Serosanguineous -Wound Margin Distinct, Outline Attached -Granulation Amt Medium (34-66%) -Granulation Quality Red -Necrosis Amt Medium (34-66%) -Necrotic Tissue Type Adherent Slough -Structure Exposed N/A -Texture (Jessie-wound Skin Appearance) No Abnormality -Moisture (Jessie-wound Skin Appearance Dry/Scaly ) -Color (Jessie-wound Skin Appearance) No Abnormality -Temperature (Jessie-wound Skin No Abnormality Appearance) (Pt Warm) -Ulcer Cleansing Wound Cleanser -Foul Odor after Cleansing No -Anesthetic Used 4% Lidocaine Solution [Edema Assessment] -Right Calf (cm) 321.5 -Right Ankle (cm) 21.5 -Left Calf (cm) 33 -Left Ankle (cm) 22.5 WC - Nurse 2 - General Ulcer CM Notes Start: 01/30/18 10:43 Freq: Status: Active Protocol: Activity Type Activity Date Activity User E-Sign Co-Sign Detail Recorded Client Recorded Date Recorded By Document 02/15/18 15:36 [id number] 02/15/18 15:38 02/15/18 15:36 Wound Center Nurse 2 [Procedure/Treatment] #3 RT LAT LE -Time 15:36 -Correct Patient Yes -Correct Side, Site, Position Yes -Correct Procedure Yes -Procedure Performed Yes -Type of Procedure Debridement -Clinical Debridement Subcutaneous -Post Debridement Size (cm) - Length 1.0 -Post Debridement Size (cm) - Width 1.1 -Post Debridement Size (cm) - Depth 0.2 -Total Square Cm 1.10 -Wound/Ulcer Outcome Not Healed -Ulcer Cleansing Rinsed/ Irrigated with Saline -Foul Odor after Cleansing No -Bioengineered Tissue No -Topical Lidocaine (%) 4 -Bleeding Controlled with Pressure -Treatment Response Procedure Tolerated Well #2 MEDIAL LLE CLUSTER -Time 15:37 -Correct Patient Yes -Correct Side, Site, Position Yes -Correct Procedure Yes -Procedure Performed Yes -Type of Procedure Debridement -Clinical Debridement Subcutaneous -Post Debridement Size (cm) - Length 2.3 -Post Debridement Size (cm) - Width 0.8 -Post Debridement Size (cm) - Depth 0.1 -Total Square Cm 1.84 -Wound/Ulcer Outcome Not Healed -Ulcer Cleansing Rinsed/ Irrigated with Saline -Foul Odor after Cleansing No -Bioengineered Tissue No -Topical Lidocaine (%) 4 -Bleeding Controlled with Pressure -Treatment Response Procedure Tolerated Well #1 LEFT BAILEY -Time 15:37 -Correct Patient Yes -Correct Side, Site, Position Yes -Correct Procedure Yes -Procedure Performed Yes -Type of Procedure Debridement -Clinical Debridement Subcutaneous -Post Debridement Size (cm) - Length 4.2 -Post Debridement Size (cm) - Width 1.5 -Post Debridement Size (cm) - Depth 0.2 -Total Square Cm 6.30 -Wound/Ulcer Outcome Not Healed -Ulcer Cleansing Rinsed/ Irrigated with Saline -Foul Odor after Cleansing No -Bioengineered Tissue No -Topical Lidocaine (%) 4 -Bleeding Controlled with Pressure -Treatment Response Procedure Tolerated Well [See Physician Procedure note for Specifics] Pain Scale: 0-10 Numeric [Pain] -Is Patient Pain Free? Yes Psych/Mental Status: Normal Affect, Appropriate Debridement Note Post-Debridement Measurements/Treatment WC - Nurse 2 - General Ulcer CM Notes Start: 01/30/18 10:43 Freq: Status: Active Protocol: Activity Type Activity Date Activity User E-Sign Co-Sign Detail Recorded Client Recorded Date Recorded By Document 01/30/18 11:25 DV [id number] 01/30/18 11:45 DV Document 02/06/18 11:52 CS [id number] 02/06/18 12:05 CS Document 02/15/18 15:36 TM [id number] 02/15/18 15:38 TM 01/30/18 02/06/18 02/15/18 11:25 11:52 15:36 Wound Center Nurse 2 #3 RT LAT LE -Time 11:28 11:54 15:36 -Correct Patient Yes Yes Yes -Correct Side, Site, Position Yes Yes Yes -Correct Procedure Yes Yes Yes -Procedure Performed Yes Yes Yes -Type of Procedure Debridement Debridement Debridement -Clinical Debridement Subcutaneous Subcutaneous Subcutaneous -Post Debridement Size (cm) - Length 4.4 1.0 1.0 -Post Debridement Size (cm) - Width 1.0 0.9 1.1 -Post Debridement Size (cm) - Depth 0.2 0.2 0.2 -Total Square Cm 4.40 0.90 1.10 -Wound/Ulcer Outcome Not Healed Not Healed Not Healed -Ulcer Cleansing Rinsed/ Rinsed/ Rinsed/ Irrigated with Irrigated with Irrigated with Saline Saline Saline -Foul Odor after Cleansing No No No -Bioengineered Tissue No No No -Topical Lidocaine (%) 4 -Bleeding Controlled with Pressure Pressure Pressure -Treatment Response Procedure Procedure Procedure Tolerated Well Tolerated Well Tolerated Well #2 MEDIAL LLE CLUSTER -Time 11:28 11:54 15:37 -Correct Patient Yes Yes Yes -Correct Side, Site, Position Yes Yes Yes -Correct Procedure Yes Yes Yes -Procedure Performed Yes Yes Yes -Type of Procedure Debridement Debridement Debridement -Clinical Debridement Subcutaneous Subcutaneous Subcutaneous -Post Debridement Size (cm) - Length 5.5 2.8 2.3 -Post Debridement Size (cm) - Width 3.5 1.0 0.8 -Post Debridement Size (cm) - Depth 0.2 0.1 0.1 -Total Square Cm 19.25 2.80 1.84 -Wound/Ulcer Outcome Not Healed Not Healed Not Healed -Ulcer Cleansing Rinsed/ Rinsed/ Rinsed/ Irrigated with Irrigated with Irrigated with Saline Saline Saline -Foul Odor after Cleansing No No No -Bioengineered Tissue No No No -Topical Lidocaine (%) 4 -Bleeding Controlled with Pressure Pressure Pressure -Treatment Response Procedure Procedure Procedure Tolerated Well Tolerated Well Tolerated Well #1 LEFT BAILEY -Time 11:27 11:54 15:37 -Correct Patient Yes Yes Yes -Correct Side, Site, Position Yes Yes Yes -Correct Procedure Yes Yes Yes -Procedure Performed Yes Yes Yes -Type of Procedure Debridement Debridement Debridement -Clinical Debridement Subcutaneous Subcutaneous Subcutaneous -Post Debridement Size (cm) - Length 3.6 5.3 4.2 -Post Debridement Size (cm) - Width 1.5 1.8 1.5 -Post Debridement Size (cm) - Depth 0.4 0.4 0.2 -Total Square Cm 5.40 9.54 6.30 -Wound/Ulcer Outcome Not Healed Not Healed Not Healed -Ulcer Cleansing Rinsed/ Rinsed/ Rinsed/ Irrigated with Irrigated with Irrigated with Saline Saline Saline -Foul Odor after Cleansing No No No -Bioengineered Tissue No No No -Topical Lidocaine (%) 4 -Bleeding Controlled with Pressure Pressure Pressure -Treatment Response Procedure Procedure Procedure Tolerated Well Tolerated Well Tolerated Well Pain Scale: 0-10 Numeric Is Patient Pain Free? Yes Yes Yes Wound debrided: right lateral LE Laterality: Right Type of Debridement: Excisional debridement Anesthesia Used: 4% Lidocaine Solution Depth: Down to and including healthy tissue, in the subcutaneous layer Percentage of wound debrided: 100 Instrument Used: 5mm curette Tissue Removed: yellow slough, devitalized tissue Severity: Fat Layer Exposed Amount of bleeding with debridement: Mild Bleeding Controlled with: Compression and gauze Patient tolerated procedure well - Additional Wound Wound debrided: Left medial LE Laterality: Left Type of Debridement: Excisional debridement Anesthesia Used: 4% Lidocaine Solution Depth: Down to and including healthy tissue, in the subcutaneous layer Percentage of wound debrided: 100 Instrument Used: 5mm curette Tissue Removed: yellow slough, devitalized tissue Severity: Fat Layer Exposed Amount of bleeding with debridement: Mild Bleeding Controlled with: Compression and gauze Patient tolerated procedure: Patient tolerated procedure well - Additional Wound Wound debrided: Left bailey Laterality: Left Type of Debridement: Excisional debridement Anesthesia Used: 4% Lidocaine Solution Depth: Down to and including healthy tissue, in the subcutaneous layer Percentage of wound debrided: 100 Instrument Used: 5mm curette Tissue Removed: yellow slough, devitalized tissue Severity: Fat Layer Exposed Amount of bleeding with debridement: Mild Bleeding Controlled with: Compression and gauze Patient tolerated procedure: Patient tolerated procedure well Assessment/Plan Active Problems (Last Reviewed 10/01/17 @ 09:34 by Sandy Valdez) Ulcer of left lower extremity with fat layer exposed (Chronic) Venous insufficiency of both lower extremities (Chronic) Ulcer of right lower extremity with fat layer exposed (Chronic) Venous ulcers of both lower extremities (Chronic) Type 2 diabetes mellitus (Chronic) Edema (Chronic) Assessment: Left lower extremity ulcer most likely secondary to venous insufficiency. Diabetes mellitus type 2, poorly controlled. Bilateral lower extremity venous insufficiency. Plan: Debridement done as documented above. Procedure was well-tolerated. Continue Promogran to all ulcers with light 3M wraps. Cont. antibiotics until finished with pills. Continued increased protein intake/supplements recommended. Elevate lower extremity when seated and in bed. Follow-up with PCP for optimal blood sugar management. F/U visit in 1 week. Advised to call with any questions or concerns. This note was generated with [employer] dictation software. It may contain incorrect words, spelling, and punctuation that were not noted in checking the note before signing.
--- NOTE | 2018-02-15 19:18 | HP.PCM_ITS ---
(1) Venous ulcers of both lower extremities Status: Chronic Current Visit: Yes Code(s): I87.2 - Venous insufficiency ( chronic) (peripheral); L97.919 - Non-pressure chronic ulcer of unspecified part of right lower leg with unspecified severity; L97.929 - Non-pressure chronic ulcer of unspecified part of left lower leg with unspecified severity (2) Ulcer of left lower extremity with fat layer exposed Status: Chronic Current Visit: Yes Code(s): L97.922 - Non-pressure chronic ulcer of unspecified part of left lower leg with fat layer exposed (3) Venous insufficiency of both lower extremities Status: Chronic Current Visit: Yes Code(s): I87.2 - Venous insufficiency ( chronic) (peripheral) (4) Ulcer of right lower extremity with fat layer exposed Status: Chronic Current Visit: Yes Code(s): L97.912 - Non-pressure chronic ulcer of unspecified part of right lower leg with fat layer exposed (5) Type 2 diabetes mellitus Status: Chronic Current Visit: Yes Qualifiers: Diabetes mellitus terminal gauger supervisor insulin use: without terminal gauger supervisor use Diabetes mellitus complication status: with unspecified complications Qualified Code(s) : E11.8 - Type 2 diabetes mellitus with unspecified complications Code(s): E11.9 - Type 2 diabetes mellitus without complications (6) Edema Status: Chronic Current Visit: Yes Qualifiers: Edema type: unspecified Qualified Code(s): R60.9 - Edema, unspecified Code(s): R60.9 - Edema, unspecified History of Present Illness Date of Service: 02/15/18 Chief Complaint: Left lower extremity ulcers. Bilateral lower extremity swelling. History of Wound: Ms. Jovel 20-year-old who presents to the wound center due to nonhealing left lower extremity wounds/ulcers. Exact etiology is unknown however patient believes it started in early December. She has had no significant wound care but has covered the wound surfaces with Band-Aids. She has noted increased drainage from the wound of clear substance. She was recently seen by primary care physician and started on Augmentin. She has had no cultures done. She feels well otherwise and denies chills, fever, nausea, vomiting or any change in her bowel habit. She is not very compliant with her diabetic care. She is being seen for Dr. De Santiago in her absence for follow up treatment today. She has been tolerating 3M dressings and promogran. Is tolerating Clindamycin as well. Has a few doses left. Has missed some doses. Denies increased drainage , pain or fever or chills. Past Medical History Past Medical History: Chronic Problems (Last Reviewed 10/01/17 @ 09:34 by Sandy Valdez) HTN (hypertension) (Chronic) Anxiety and depression (Chronic) Ulcer of left lower extremity with fat layer exposed (Chronic) Venous insufficiency of both lower extremities (Chronic) Ulcer of right lower extremity with fat layer exposed (Chronic) Venous ulcers of both lower extremities (Chronic) H/O aortic valve replacement (Chronic ~06/20/16) Type 2 diabetes mellitus (Chronic) Paroxysmal atrial fibrillation (Chronic) Edema (Chronic) Dyspnea on exertion (Chronic) Shortness of breath (Chronic) History of aortic valve replacement with bioprosthetic valve (Chronic ~06/20/16) Hyperlipidemia (Chronic) Pulmonary hypertension (Chronic) Surgical History: - - S/P AVR, Carpal Tunnel Release, BL TKR, D+C. Allergies/Adverse Reactions: Allergies No Known Allergies Allergy (Verified 10/21/17 12:51) Home Medications: Ambulatory Orders Medication Instructions Recorded Atorvastatin Calcium [Lipitor] 20 mg PO QHS #0 tab 07/09/16 Omeprazole 20 mg PO DAILY PRN 01/12/17 potassium chloride ER 10 mEq 10 meq PO QDAY PRN #90 tab 08/30/17 tablet,extended release(part/cryst) aspirin 81 mg chewable tablet 81 mg PO QDAY tab 09/25/17 furosemide 40 mg tablet 40 mg PO QDAY PRN 10/01/17 glimepiride 4 mg tablet 4 mg PO BID tab 10/01/17 tolterodine ER 4 mg 4 mg PO QDAY 10/01/17 capsule,extended release 24 hr Metformin HCl [Glucophage] 1,000 mg PO BIDCM #60 tab 10/21/17 apixaban 5 mg tablet 5 mg PO BID #60 tab 11/05/17 lisinopril 10 mg tablet 5 mg PO QDAY tab 11/19/17 amiodarone 200 mg tablet 100 mg PO DAILY #30 tab 01/07/18 - Family History Paternal Family History: Family History (Last Reviewed 10/01/17 @ 09:34 by Sandy Valdez) Father CAD (coronary artery disease) Mother CAD (coronary artery disease) Dementia, Heart Disease Maternal Family History: Family History (Last Reviewed 10/01/17 @ 09:34 by Sandy Valdez) Father CAD (coronary artery disease) Mother CAD (coronary artery disease) Heart Disease Smoking Status: Never smoker Review of Systems Constitutional: Denies: Chills, Fever, Weight Change Eyes: Denies: Pain, Vision Change HEENT: Denies: Difficulty Hearing, Difficulty Swallowing, Sinus Congestion Cardiovascular: Denies: Chest Pain, Palpitations Respiratory: Denies: Cough, Shortness of Breath Gastrointestinal: Denies: Diarrhea, Nausea, Vomiting Genitourinary: Denies: Dysuria, Hematuria Musculoskeletal: Reports: Leg Pain Skin: Reports: Wounds Hematologic/ Lymphatic: Denies: Easy Bruising, Easy Bleeding - Physical Exam Vital Signs Temp Pulse Resp BP 97.1 F L 78 18 102/43 L 02/15/18 14:38 02/15/18 14:38 02/15/18 14:38 02/15/18 14:38 General: Alert, Oriented x3, Cooperative, No apparent distress HEENT: Atraumatic, Normocephalic Oral: Moist Mucosa Neck: Supple, No JVD Lungs: Clear to auscultation Cardiovascular: Regular rate, Regular Rhythm Abdomen: Soft, Non Tender Extremities: Edema Skin: Ulcer/ Wound Wound Measurements and Assessment WC - Nurse 1 - General Ulcer Measurement Start: 01/30/18 10:43 Freq: Status: Active Protocol: Activity Type Activity Date Activity User E-Sign Co-Sign Detail Recorded Client Recorded Date Recorded By Document 02/15/18 14:38 DL [id number] 02/15/18 14:47 DL 02/15/18 14:38 Wound Center Nurse 1 [Ulcer Assessment] #3 RT LAT LE -Current Size (cm) - Length 0.8 -Current Size (cm) - Width 0.9 -Current Size (cm) - Depth 0.2 -Total Square Cm 0.72 -Photo Taken No -Exudate Amt Small (1-33%) -Exudate Type Serosanguineous -Wound Margin Distinct, Outline Attached -Granulation Amt None Present (0 %) -Necrosis Amt Large (67-100%) -Necrotic Tissue Type Adherent Slough -Structure Exposed N/A -Texture (Jessie-wound Skin Appearance) No Abnormality -Moisture (Jessie-wound Skin Appearance Dry/Scaly ) -Color (Jessie-wound Skin Appearance) No Abnormality -Temperature (Jessie-wound Skin No Abnormality Appearance) (Pt Warm) -Ulcer Cleansing Wound Cleanser -Foul Odor after Cleansing No -Anesthetic Used 4% Lidocaine Solution #2 MEDIAL LLE CLUSTER -Current Size (cm) - Length 4.1 -Current Size (cm) - Width 2.3 -Current Size (cm) - Depth 0.1 -Total Square Cm 9.43 -Photo Taken No -Exudate Amt Small (1-33%) -Exudate Type Serosanguineous -Wound Margin Distinct, Outline Attached -Granulation Amt Small (1-33%) -Granulation Quality [place] -Necrosis Amt Large (67-100%) -Necrotic Tissue Type Adherent Slough -Structure Exposed N/A -Texture (Jessie-wound Skin Appearance) No Abnormality -Moisture (Jessie-wound Skin Appearance Dry/Scaly ) -Color (Jessie-wound Skin Appearance) No Abnormality -Temperature (Jessie-wound Skin No Abnormality Appearance) (Pt Warm) -Ulcer Cleansing Wound Cleanser -Foul Odor after Cleansing No -Anesthetic Used 4% Lidocaine Solution #1 LEFT BAILEY -Current Size (cm) - Length 4 -Current Size (cm) - Width 1.6 -Current Size (cm) - Depth 0.1 -Total Square Cm 6.4 -Photo Taken No -Exudate Amt Medium (34-66%) -Exudate Type Serosanguineous -Wound Margin Distinct, Outline Attached -Granulation Amt Medium (34-66%) -Granulation Quality Red -Necrosis Amt Medium (34-66%) -Necrotic Tissue Type Adherent Slough -Structure Exposed N/A -Texture (Jessie-wound Skin Appearance) No Abnormality -Moisture (Jessie-wound Skin Appearance Dry/Scaly ) -Color (Jessie-wound Skin Appearance) No Abnormality -Temperature (Jessie-wound Skin No Abnormality Appearance) (Pt Warm) -Ulcer Cleansing Wound Cleanser -Foul Odor after Cleansing No -Anesthetic Used 4% Lidocaine Solution [Edema Assessment] -Right Calf (cm) 321.5 -Right Ankle (cm) 21.5 -Left Calf (cm) 33 -Left Ankle (cm) 22.5 WC - Nurse 2 - General Ulcer CM Notes Start: 01/30/18 10:43 Freq: Status: Active Protocol: Activity Type Activity Date Activity User E-Sign Co-Sign Detail Recorded Client Recorded Date Recorded By Document 02/15/18 15:36 [id number] 02/15/18 15:38 02/15/18 15:36 Wound Center Nurse 2 [Procedure/Treatment] #3 RT LAT LE -Time 15:36 -Correct Patient Yes -Correct Side, Site, Position Yes -Correct Procedure Yes -Procedure Performed Yes -Type of Procedure Debridement -Clinical Debridement Subcutaneous -Post Debridement Size (cm) - Length 1.0 -Post Debridement Size (cm) - Width 1.1 -Post Debridement Size (cm) - Depth 0.2 -Total Square Cm 1.10 -Wound/Ulcer Outcome Not Healed -Ulcer Cleansing Rinsed/ Irrigated with Saline -Foul Odor after Cleansing No -Bioengineered Tissue No -Topical Lidocaine (%) 4 -Bleeding Controlled with Pressure -Treatment Response Procedure Tolerated Well #2 MEDIAL LLE CLUSTER -Time 15:37 -Correct Patient Yes -Correct Side, Site, Position Yes -Correct Procedure Yes -Procedure Performed Yes -Type of Procedure Debridement -Clinical Debridement Subcutaneous -Post Debridement Size (cm) - Length 2.3 -Post Debridement Size (cm) - Width 0.8 -Post Debridement Size (cm) - Depth 0.1 -Total Square Cm 1.84 -Wound/Ulcer Outcome Not Healed -Ulcer Cleansing Rinsed/ Irrigated with Saline -Foul Odor after Cleansing No -Bioengineered Tissue No -Topical Lidocaine (%) 4 -Bleeding Controlled with Pressure -Treatment Response Procedure Tolerated Well #1 LEFT BAILEY -Time 15:37 -Correct Patient Yes -Correct Side, Site, Position Yes -Correct Procedure Yes -Procedure Performed Yes -Type of Procedure Debridement -Clinical Debridement Subcutaneous -Post Debridement Size (cm) - Length 4.2 -Post Debridement Size (cm) - Width 1.5 -Post Debridement Size (cm) - Depth 0.2 -Total Square Cm 6.30 -Wound/Ulcer Outcome Not Healed -Ulcer Cleansing Rinsed/ Irrigated with Saline -Foul Odor after Cleansing No -Bioengineered Tissue No -Topical Lidocaine (%) 4 -Bleeding Controlled with Pressure -Treatment Response Procedure Tolerated Well [See Physician Procedure note for Specifics] Pain Scale: 0-10 Numeric [Pain] -Is Patient Pain Free? Yes Psych/Mental Status: Normal Affect, Appropriate Debridement Note Post-Debridement Measurements/Treatment WC - Nurse 2 - General Ulcer CM Notes Start: 01/30/18 10:43 Freq: Status: Active Protocol: Activity Type Activity Date Activity User E-Sign Co-Sign Detail Recorded Client Recorded Date Recorded By Document 01/30/18 11:25 DV [id number] 01/30/18 11:45 DV Document 02/06/18 11:52 CS [id number] 02/06/18 12:05 CS Document 02/15/18 15:36 TM [id number] 02/15/18 15:38 TM 01/30/18 02/06/18 02/15/18 11:25 11:52 15:36 Wound Center Nurse 2 #3 RT LAT LE -Time 11:28 11:54 15:36 -Correct Patient Yes Yes Yes -Correct Side, Site, Position Yes Yes Yes -Correct Procedure Yes Yes Yes -Procedure Performed Yes Yes Yes -Type of Procedure Debridement Debridement Debridement -Clinical Debridement Subcutaneous Subcutaneous Subcutaneous -Post Debridement Size (cm) - Length 4.4 1.0 1.0 -Post Debridement Size (cm) - Width 1.0 0.9 1.1 -Post Debridement Size (cm) - Depth 0.2 0.2 0.2 -Total Square Cm 4.40 0.90 1.10 -Wound/Ulcer Outcome Not Healed Not Healed Not Healed -Ulcer Cleansing Rinsed/ Rinsed/ Rinsed/ Irrigated with Irrigated with Irrigated with Saline Saline Saline -Foul Odor after Cleansing No No No -Bioengineered Tissue No No No -Topical Lidocaine (%) 4 -Bleeding Controlled with Pressure Pressure Pressure -Treatment Response Procedure Procedure Procedure Tolerated Well Tolerated Well Tolerated Well #2 MEDIAL LLE CLUSTER -Time 11:28 11:54 15:37 -Correct Patient Yes Yes Yes -Correct Side, Site, Position Yes Yes Yes -Correct Procedure Yes Yes Yes -Procedure Performed Yes Yes Yes -Type of Procedure Debridement Debridement Debridement -Clinical Debridement Subcutaneous Subcutaneous Subcutaneous -Post Debridement Size (cm) - Length 5.5 2.8 2.3 -Post Debridement Size (cm) - Width 3.5 1.0 0.8 -Post Debridement Size (cm) - Depth 0.2 0.1 0.1 -Total Square Cm 19.25 2.80 1.84 -Wound/Ulcer Outcome Not Healed Not Healed Not Healed -Ulcer Cleansing Rinsed/ Rinsed/ Rinsed/ Irrigated with Irrigated with Irrigated with Saline Saline Saline -Foul Odor after Cleansing No No No -Bioengineered Tissue No No No -Topical Lidocaine (%) 4 -Bleeding Controlled with Pressure Pressure Pressure -Treatment Response Procedure Procedure Procedure Tolerated Well Tolerated Well Tolerated Well #1 LEFT BAILEY -Time 11:27 11:54 15:37 -Correct Patient Yes Yes Yes -Correct Side, Site, Position Yes Yes Yes -Correct Procedure Yes Yes Yes -Procedure Performed Yes Yes Yes -Type of Procedure Debridement Debridement Debridement -Clinical Debridement Subcutaneous Subcutaneous Subcutaneous -Post Debridement Size (cm) - Length 3.6 5.3 4.2 -Post Debridement Size (cm) - Width 1.5 1.8 1.5 -Post Debridement Size (cm) - Depth 0.4 0.4 0.2 -Total Square Cm 5.40 9.54 6.30 -Wound/Ulcer Outcome Not Healed Not Healed Not Healed -Ulcer Cleansing Rinsed/ Rinsed/ Rinsed/ Irrigated with Irrigated with Irrigated with Saline Saline Saline -Foul Odor after Cleansing No No No -Bioengineered Tissue No No No -Topical Lidocaine (%) 4 -Bleeding Controlled with Pressure Pressure Pressure -Treatment Response Procedure Procedure Procedure Tolerated Well Tolerated Well Tolerated Well Pain Scale: 0-10 Numeric Is Patient Pain Free? Yes Yes Yes Wound debrided: right lateral LE Laterality: Right Type of Debridement: Excisional debridement Anesthesia Used: 4% Lidocaine Solution Depth: Down to and including healthy tissue, in the subcutaneous layer Percentage of wound debrided: 100 Instrument Used: 5mm curette Tissue Removed: yellow slough, devitalized tissue Severity: Fat Layer Exposed Amount of bleeding with debridement: Mild Bleeding Controlled with: Compression and gauze Patient tolerated procedure well - Additional Wound Wound debrided: Left medial LE Laterality: Left Type of Debridement: Excisional debridement Anesthesia Used: 4% Lidocaine Solution Depth: Down to and including healthy tissue, in the subcutaneous layer Percentage of wound debrided: 100 Instrument Used: 5mm curette Tissue Removed: yellow slough, devitalized tissue Severity: Fat Layer Exposed Amount of bleeding with debridement: Mild Bleeding Controlled with: Compression and gauze Patient tolerated procedure: Patient tolerated procedure well - Additional Wound Wound debrided: Left bailey Laterality: Left Type of Debridement: Excisional debridement Anesthesia Used: 4% Lidocaine Solution Depth: Down to and including healthy tissue, in the subcutaneous layer Percentage of wound debrided: 100 Instrument Used: 5mm curette Tissue Removed: yellow slough, devitalized tissue Severity: Fat Layer Exposed Amount of bleeding with debridement: Mild Bleeding Controlled with: Compression and gauze Patient tolerated procedure: Patient tolerated procedure well Assessment/Plan Active Problems (Last Reviewed 10/01/17 @ 09:34 by Sandy Valdez) Ulcer of left lower extremity with fat layer exposed (Chronic) Venous insufficiency of both lower extremities (Chronic) Ulcer of right lower extremity with fat layer exposed (Chronic) Venous ulcers of both lower extremities (Chronic) Type 2 diabetes mellitus (Chronic) Edema (Chronic) Assessment: Left lower extremity ulcer most likely secondary to venous insufficiency. Diabetes mellitus type 2, poorly controlled. Bilateral lower extremity venous insufficiency. Plan: Debridement done as documented above. Procedure was well-tolerated. Continue Promogran to all ulcers with light 3M wraps. Cont. antibiotics until finished with pills. Continued increased protein intake/supplements recommended. Elevate lower extremity when seated and in bed. Follow-up with PCP for optimal blood sugar management. F/U visit in 1 week. Advised to call with any questions or concerns. This note was generated with [employer] dictation software. It may contain incorrect words, spelling, and punctuation that were not noted in checking the note before signing.
== END 2018-02-16 23:59 ==
LOC: WC 14:30
PROVIDERS: Family Provider Family Medicine; PCP Family Medicine; Visit Provider Internal Medicine
DX: E11.622 Type 2 diabetes mellitus with other skin ulcer (principal); E11.51 Type 2 diabetes mellitus with diabetic peripheral angiopathy without gangrene; R60.0 Localized edema; M79.89 Other specified soft tissue disorders; L97.822 Non-pressure chronic ulcer of other part of left lower leg with fat layer exposed; L97.812 Non-pressure chronic ulcer of other part of right lower leg with fat layer exposed; E11.65 Type 2 diabetes mellitus with hyperglycemia
CPT/HCPCS: 11042; 11045; 29581; 87070; 87075; 87077; 87186; 87205; 93923; 93970; 99212; 99214; G0463

== ENCOUNTER 2018-02-27 08:08 | Emergency (ER) | payer MEDICARE, OTHER, SELFPAY ==
[2018-02-27 08:09] VITALS: BP 157/70; PULSE 65; RESP 17; TEMP 36.4; O2SAT 98; BMI 26.4
--- NOTE | 2018-02-27 08:28 | ED.VISSUMM ---
- ER Visit Summary Date of Service: 02/27/18 Chief Complaint: High blood pressure History of Present Illness: The patient is a [address] Chad Rose. She is a poor informant. She reports that she saw Dr. Herron yesterday and her blood pressure was 94/60. She has been taking 5 mg of lisinopril since December. States that today she woke and felt lightheaded. She took her blood pressure and it was 200 systolic and then 194 systolic. Neighbor took her blood pressure was 180/89 with a heart rate of 54. Patient also reports her blood sugars have been in the 200s today. She denies any other complaints. She denies any vertigo. Physical Examination: Vitals: 97.5, 157/70, 65, 17, 98% on room air which is not hypoxic. General: Well-nourished and well-developed. Head: Normocephalic atraumatic. Neck: Supple, no lymphadenopathy. No JVD. Nontender. Cardiovascular: Regular rate and rhythm. 2 out of 6 systolic murmur with mechanical valve click. Respiratory: No respiratory distress. Clear to auscultation bilaterally. Abdominal: Soft, nontender, nondistended, normal bowel sounds. No guarding, rebound, or peritoneal signs. Back: Nontender. Extremities: Nontender, 2+ pitting edema over lower extremity bilaterally. Patient's legs are wrapped by the wound clinic. She refused to let me remove these. Skin: Normal color, no rash. Neurologic: Alert and oriented ?3. Cranial nerves II through XII are intact. Normal strength and sensation. Psych: Normal affect. Test Results: CBC is remarkable for an H&H of 10.8 and 32.5, monocytes of 11. Chem-7 is more for sodium 120, chloride 90, glucose 255, calcium 8.2. Emergency Department Course and Treatment: Patient's resting comfortably. Repeat blood pressure is 120/54. Treatment Plan: Patient was discussed with Dr. Chad Chang. She is instructed to continue her medications for her blood sugar. Follow-up him in a week for repeat exam.Patient will be discharged instructions to go to the wound clinic now. Return to the emergency department for any worsening symptoms. Disposition: To home in improved and stable condition. Impression: 1. Hyperglycemia with history of nonsupine diabetes mellitus. 2. Lightheadedness. 3. Hypertension. This note was generated with [facility] dictation software. It may contain incorrect words, spelling, and punctuation that were not noted in review of the chart prior to signing ED Disposition - Plan for ED Patient: Chief Complaint: Hypertension Instructions: ED HTN Established Referrals: Chad Chang MD [Primary Care Provider] - 1 Week
[2018-02-27 08:47] VITALS: BP 135/46; PULSE 58; RESP 20
[2018-02-27 08:57] LABS: Absolute Lymphocyte Count 0.91 X10^3/ul (0.83-4.51); Absolute Neutrophil Count 3.2 X10^3/uL (2.0-7.7); Basophil# 0.01 X10^3/uL; Basophil% 0.2 % (0-1); Hematocrit 32.5 % (37-47); Hemoglobin 10.8 g/dl (12.0-15.0); Lymphocyte # 0.91 X10^3/ul (4.0); Lymphocyte % 19.4 % (19-41); Mean Corp Hgb Conc 33.2 g/gl (32-36); Mean Corpuscular Hgb 28.5 pg (27.0-32.0); Mean Corpuscular Volume 85.8 fL (81-99); Mean Platelet Vol. 9.3 fl (6.2-12.0); Monocyte# 0.51 X10^3/uL; Monocyte% 10.9 % (0-10); Neutrophil # 3.24 X10^3/uL (2.7-7.7); Neutrophil % 69.1 % (47-70); POSITIVE COUNT NO; POSITIVE DIFFERENTIAL NO; POSITIVE MORPHOLOGY NO; Platelet Count 287 K/mm3 (150-450); RBC Distribution Width CV 14.8 % (11.6-14.6); RBC Distribution Width SD 46.6 fl (35.1-43.9); Red Blood Count 3.79 M/mm3 (4.2-5.4); White Blood Count 4.7 K/mm3 (4.4-11.0)
[2018-02-27 09:01] LABS: Bedside Glucose 238 mg/dL (70-110)
[2018-02-27 09:09] LABS: Anion Gap 7 (5-15); BUN 14 mg/dL (7-18); BUN/Creat Ratio 21.2 RATIO (10-20); Calcium,Total 8.2 mg/dL (8.5-10.1); Chloride 90 mmol/L (98-107); Creatinine, Serum 0.66 mg/dL (0.55-1.02); EST Glomerular Filtration Rate 91 mL/min (>60); Est Glom Filt Rate - Afr Amer 110 mL/min (>60); Estimated Creatinine Clearance 32.23 ml/min; Glucose 255 mg/dL (74-106); Potassium 4.7 mmol/L (3.5-5.1); Sodium Level 128 mmol/L (136-145)
[2018-02-27 10:03] VITALS: BP 151/50; PULSE 88; RESP 20
== END 2018-02-27 10:04 | disposition home or self-care (01) ==
LOC: ED 09:02
PROVIDERS: Emergency Provider Emergency Medicine; Family Provider Family Medicine; PCP Family Medicine
DX: E11.65 Type 2 diabetes mellitus with hyperglycemia (principal); R42 Dizziness and giddiness; I10 Essential (primary) hypertension; R05 Cough; R01.1 Cardiac murmur, unspecified
CPT/HCPCS: 80048; 82962; 85025; A4216

== ENCOUNTER 2018-03-13 10:15 | Outpatient (RCR) | payer MEDICARE, OTHER, SELFPAY ==
[2018-02-17 01:03] VITALS: BP 102/43; PULSE 78; RESP 18; TEMP 36.2
[2018-02-22 11:43] VITALS: BP 129/48; PULSE 72; RESP 16; TEMP 36.3
[2018-02-27 11:11] VITALS: BP 158/71; PULSE 64; RESP 16; TEMP 36.3
--- NOTE | 2018-02-27 11:58 | PN.PCM_ITS ---
(1) Type 2 diabetes mellitus Status: Chronic Current Visit: Yes Qualifiers: Code(s): E11.9 - Type 2 diabetes mellitus without complications (2) Ulcer of left lower extremity with fat layer exposed Status: Chronic Current Visit: Yes Code(s): L97.922 - Non-pressure chronic ulcer of unspecified part of left lower leg with fat layer exposed (3) Venous insufficiency of both lower extremities Status: Chronic Current Visit: Yes Code(s): I87.2 - Venous insufficiency ( chronic) (peripheral) Type of Wound Date of Service: 02/27/18 Chief Complaint: Left lower extremity ulcers. Bilateral lower extremity swelling. History of Wound: Ms. Jovel 20-year-old who presents to the wound center due to nonhealing left lower extremity wounds/ulcers. Exact etiology is unknown however patient believes it started in early December. She has had no significant wound care but has covered the wound surfaces with Band-Aids. She has noted increased drainage from the wound of clear substance. She was recently seen by primary care physician and started on Augmentin. She has had no cultures done. She feels well otherwise and denies chills, fever, nausea, vomiting or any change in her bowel habit. She is not very compliant with her diabetic care. She is being seen for Dr. De Santiago in her absence for follow up treatment today. She has been tolerating 3M dressings and promogran. Is tolerating Clindamycin as well. Has a few doses left. Has missed some doses. Denies increased drainage , pain or fever or chills. Progress of Wound: Improving. - Physical Exam Vital Signs Temp Pulse Resp BP 97.3 F L 64 16 158/71 H 02/27/18 11:11 02/27/18 11:11 02/27/18 11:11 02/27/18 11:11 General: Alert, Oriented x3, Cooperative, No apparent distress HEENT: Atraumatic Oral: Moist Mucosa Neck: Supple Lungs: Normal air movement Abdomen: Non Tender Extremities: No cyanosis, Edema Wound Measurements and Assessment WC - Nurse 1 - General Ulcer Measurement Start: 02/22/18 11:38 Freq: Status: Active Protocol: Activity Type Activity Date Activity User E-Sign Co-Sign Detail Recorded Client Recorded Date Recorded By Document 02/27/18 11:11 [id number] 02/27/18 11:38 CS 02/27/18 11:11 Wound Center Nurse 1 [Ulcer Assessment] #4 left medial upper thigh -Combined with other wound No -Current Size (cm) - Length 0.4 -Current Size (cm) - Width 2.2 -Current Size (cm) - Depth 0.1 -Total Square Cm 0.88 -Date of Last Picture (Recall this 02/27/18 field) -Photo Taken Yes -Epithelialization None Present -Tunneling No -Undermining/Tunneling No -Circular Undermining No -Exudate Amt Small (1-33%) -Exudate Type Serosanguineous -Wound Margin Distinct, Outline Attached -Granulation Amt None Present (0 %) -Granulation Quality N/A -Slough/Fibrin Yes -Necrosis Amt Medium (34-66%) -Necrotic Tissue Type Adherent Slough -Structure Exposed None/Limited to Skin Breakdown -Texture (Jessie-wound Skin Appearance) No Abnormality Assessed -Moisture (Jessie-wound Skin Appearance No Abnormality ) Assessed -Color (Jessie-wound Skin Appearance) No Abnormality Assessed -Temperature (Jessie-wound Skin No Abnormality Appearance) (Pt Warm) -Tenderness on Palpation (Jessie-wound No Skin Appearance) -Ulcer Cleansing Wound Cleanser -Foul Odor after Cleansing No -Anesthetic Used 4% Lidocaine Solution #3 RT LAT LE -Combined with other wound No -Current Size (cm) - Length 0.9 -Current Size (cm) - Width 1.0 -Current Size (cm) - Depth 0.1 -Total Square Cm 0.90 -Date of Last Picture (Recall this 02/27/18 field) -Photo Taken No -Epithelialization None Present -Tunneling No -Undermining/Tunneling No -Circular Undermining No -Exudate Amt None Present (0 %) -Wound Margin Thickened -Granulation Amt None Present (0 %) -Granulation Quality N/A -Slough/Fibrin Yes -Necrosis Amt None Present (0 %) -Necrotic Tissue Type Adherent Slough -Structure Exposed None/Limited to Skin Breakdown -Texture (Jessie-wound Skin Appearance) No Abnormality Assessed -Temperature (Jessie-wound Skin No Abnormality Appearance) (Pt Warm) -Tenderness on Palpation (Jessie-wound No Skin Appearance) -Ulcer Cleansing Wound Cleanser -Foul Odor after Cleansing No -Anesthetic Used 4% Lidocaine Solution #2 MEDIAL LLE CLUSTER -Combined with other wound No -Current Size (cm) - Length 2.2 -Current Size (cm) - Width 0.3 -Current Size (cm) - Depth 0.1 -Total Square Cm 0.66 -Date of Last Picture (Recall this 02/27/18 field) -Photo Taken Yes -Epithelialization None Present -Tunneling No -Undermining/Tunneling No -Circular Undermining No -Exudate Amt Small (1-33%) -Exudate Type Serosanguineous -Wound Margin Thickened -Granulation Amt None Present (0 %) -Granulation Quality N/A -Slough/Fibrin Yes -Necrosis Amt None Present (0 %) -Necrotic Tissue Type Adherent Slough -Texture (Jessie-wound Skin Appearance) Assessed Scarring -Moisture (Jessie-wound Skin Appearance Assessed ) Dry/Scaly -Color (Jessie-wound Skin Appearance) No Abnormality Assessed -Temperature (Jessie-wound Skin No Abnormality Appearance) (Pt Warm) -Tenderness on Palpation (Jessie-wound No Skin Appearance) -Ulcer Cleansing Wound Cleanser -Foul Odor after Cleansing No -Anesthetic Used 4% Lidocaine Solution #1 LEFT BAILEY -Combined with other wound No -Current Size (cm) - Length 3.4 -Current Size (cm) - Width 1.1 -Current Size (cm) - Depth 0.1 -Total Square Cm 3.74 -Date of Last Picture (Recall this 02/27/18 field) -Photo Taken Yes -Epithelialization None Present -Tunneling No -Undermining/Tunneling No -Circular Undermining No -Exudate Amt Medium (34-66%) -Exudate Type Serosanguineous -Wound Margin Distinct, Outline Attached -Granulation Amt Medium (34-66%) -Granulation Quality [place] Red -Necrosis Amt None Present (0 %) -Necrotic Tissue Type Adherent Slough -Structure Exposed None/Limited to Skin Breakdown -Texture (Jessie-wound Skin Appearance) Assessed -Moisture (Jessie-wound Skin Appearance Assessed ) -Color (Jessie-wound Skin Appearance) Assessed -Temperature (Jessie-wound Skin No Abnormality Appearance) (Pt Warm) -Tenderness on Palpation (Jessie-wound Yes Skin Appearance) -Ulcer Cleansing Wound Cleanser -Foul Odor after Cleansing No -Anesthetic Used 4% Lidocaine Solution [Edema Assessment] -Lower Limb Edema Present Yes -Right Calf (cm) 32.0 -Right Ankle (cm) 23.0 -Left Calf (cm) 33.5 -Left Ankle (cm) 22.0 Musculoskeletal: No Muscle Wasting Neurological: Cranial nerves II-XII grossly intact Psych/Mental Status: Normal Affect Debridement Note Wound debrided: Left lower extremity bailey. Wound Grade/Stage: Leigh II Type of Debridement: Excisional debridement Anesthesia Used: 4% Lidocaine Solution Depth: Down to and including healthy tissue, in the subcutaneous layer Percentage of wound debrided: 100 Instrument Used: 5mm curette Tissue Removed: Slough and devitalized tissue Severity: Fat Layer Exposed Amount of bleeding with debridement: Mild Bleeding Controlled with: Pressure Patient tolerated procedure well - Additional Wound Wound debrided: Left Calf Wound Grade/Stage: Stage 1 Type of Debridement: Excisional debridement Anesthesia Used: 4% Lidocaine Solution Depth: Down to and including healthy tissue, in the subcutaneous layer Percentage of wound debrided: 100 Instrument Used: 5mm curette Tissue Removed: Slough and devitalized tissue Severity: Fat Layer Exposed Amount of bleeding with debridement: None Patient tolerated procedure: Patient tolerated procedure well Assessment/Plan Active Problems (Last Reviewed 10/01/17 @ 09:34 by Sandy Valdez) Ulcer of left lower extremity with fat layer exposed (Chronic) Venous insufficiency of both lower extremities (Chronic) Type 2 diabetes mellitus (Chronic) Assessment: Left lower extremity ulcer most likely secondary to venous insufficiency. Diabetes mellitus type 2, poorly controlled. Bilateral lower extremity venous insufficiency. Plan: Old ulcers with good imporovement. She however has a new posterior left LE ulcer probably from the 3M wraps. Debridement done as documented above. Procedure was well-tolerated. Continue Promogran to all ulcers with light 3M wraps. Continued increased protein intake/supplements recommended. Elevate lower extremity when seated and in bed. Follow-up with PCP for optimal blood sugar management. F/U visit in 1 week. Advised to call with any questions or concerns. This note was generated with [employer] ([employer]) dictation software. It may contain incorrect words, spelling, and punctuation that were not noted in checking the note before signing.
[2018-03-06 10:01] VITALS: RESP 16; TEMP 36.5
--- NOTE | 2018-03-06 11:08 | PCM.WC.PN ---
(1) Type 2 diabetes mellitus Status: Chronic Current Visit: Yes Qualifiers: Code(s): E11.9 - Type 2 diabetes mellitus without complications (2) Ulcer of left lower extremity with fat layer exposed Status: Chronic Current Visit: Yes Code(s): L97.922 - Non-pressure chronic ulcer of unspecified part of left lower leg with fat layer exposed (3) Venous insufficiency of both lower extremities Status: Chronic Current Visit: Yes Code(s): I87.2 - Venous insufficiency (chronic) (peripheral) Type of Wound Date of Service: 03/06/18 Chief Complaint: Left lower extremity ulcers. Bilateral lower extremity swelling. History of Wound: Ms. Jovel 20-year-old who presents to the wound center due to nonhealing left lower extremity wounds/ulcers. Exact etiology is unknown however patient believes it started in early December. She has had no significant wound care but has covered the wound surfaces with Band-Aids. She has noted increased drainage from the wound of clear substance. She was recently seen by primary care physician and started on Augmentin. She has had no cultures done. She feels well otherwise and denies chills, fever, nausea, vomiting or any change in her bowel habit. She is not very compliant with her diabetic care. She is being seen for Dr. De Santiago in her absence for follow up treatment today. She has been tolerating 3M dressings and promogran. Is tolerating Clindamycin as well. Has a few doses left. Has missed some doses. Denies increased drainage, pain or fever or chills. Progress of Wound: Stable. No new complaints. - Physical Exam Vital Signs Temp Pulse Resp BP 97.7 F L 64 16 158/71 H 03/06/18 10:01 02/27/18 11:11 03/06/18 10:01 02/27/18 11:11 General: Alert, Oriented x3, Cooperative HEENT: Atraumatic Oral: Moist Mucosa Neck: Supple Lungs: Normal air movement Abdomen: Non Tender Extremities: No cyanosis, Edema Skin: Ulcer/ Wound Wound Measurements and Assessment WC - Nurse 1 - General Ulcer Measurement Start: 02/22/18 11:38 Freq: Status: Active Protocol: Activity Type Activity Date Activity User E-Sign Co-Sign Detail Recorded Client Recorded Date Recorded By Document 03/06/18 10:01 [facility] [id number] 03/06/18 10:15 BMF 03/06/18 10:01 Wound Center Nurse 1 [Ulcer Assessment] #4 left medial upper thigh -Combined with other wound No -Current Size (cm) - Length 0.1 -Current Size (cm) - Width 0.1 -Current Size (cm) - Depth 0.1 -Total Square Cm 0.01 -Epithelialization Large 67-100% -Tunneling No -Undermining/Tunneling No -Circular Undermining No #1 LEFT BAILEY -Combined with other wound No -Current Size (cm) - Length 3 -Current Size (cm) - Width 1.4 -Current Size (cm) - Depth 0.1 -Total Square Cm 4.2 -Photo Taken No -Epithelialization Small 1-33% -Tunneling No -Undermining/Tunneling No -Circular Undermining No -Exudate Amt Medium (34-66%) -Exudate Type Serosanguineous -Wound Margin Distinct, Outline Attached -Granulation Amt Medium (34-66%) -Granulation Quality Red -Slough/Fibrin Yes -Necrosis Amt Medium (34-66%) -Necrotic Tissue Type Adherent Slough -Structure Exposed N/A -Texture (Jessie-wound Skin Appearance) Scarring -Moisture (Jessie-wound Skin Appearance Dry/Scaly ) -Color (Jessie-wound Skin Appearance) Assessed Erythema -Temperature (Jessie-wound Skin No Abnormality Appearance) (Pt Warm) -Tenderness on Palpation (Jessie-wound No Skin Appearance) -Ulcer Cleansing Wound Cleanser -Foul Odor after Cleansing No -Anesthetic Used 4% Lidocaine Solution [Edema Assessment] -Lower Limb Edema Present Yes -Right Calf (cm) 31 -Right Ankle (cm) 23 -Left Calf (cm) 31 -Left Ankle (cm) 22 WC - Nurse 2 - General Ulcer CM Notes Start: 02/22/18 11:38 Freq: Status: Active Protocol: Activity Type Activity Date Activity User E-Sign Co-Sign Detail Recorded Client Recorded Date Recorded By Document 03/06/18 10:59 [email or web address] [id number] 03/06/18 11:06 03/06/18 10:59 Wound Center Nurse 2 [Procedure/Treatment] #4 left medial upper thigh -Time 11:00 -Correct Patient Yes -Correct Side, Site, Position Yes -Correct Procedure Yes -Procedure Performed No -Post Debridement Size (cm) - Length 0 -Post Debridement Size (cm) - Width 0 -Post Debridement Size (cm) - Depth 0 -Total Square Cm 0 -Wound/Ulcer Outcome Healed- Epithelialized #3 RT LAT LE -Time 11:04 -Correct Patient Yes -Correct Side, Site, Position Yes -Correct Procedure Yes -Procedure Performed Yes -Type of Procedure Debridement -Clinical Debridement Subcutaneous -Post Debridement Size (cm) - Length 0.6 -Post Debridement Size (cm) - Width 0.9 -Post Debridement Size (cm) - Depth 0.1 -Total Square Cm 0.54 -Wound/Ulcer Outcome Not Healed -Ulcer Cleansing Rinsed/ Irrigated with Saline -Foul Odor after Cleansing No -Bioengineered Tissue No -Topical Lidocaine (%) 4 -Lidocaine (ml) 5 -Bleeding Controlled with NA -Treatment Response Procedure Tolerated Well #1 LEFT BAILEY -Time 11:00 -Correct Patient Yes -Correct Side, Site, Position Yes -Correct Procedure Yes -Procedure Performed Yes -Type of Procedure Debridement -Clinical Debridement Subcutaneous -Post Debridement Size (cm) - Length 2.8 -Post Debridement Size (cm) - Width 1.1 -Post Debridement Size (cm) - Depth 0.1 -Total Square Cm 3.08 -Wound/Ulcer Outcome Not Healed -Ulcer Cleansing Rinsed/ Irrigated with Saline -Foul Odor after Cleansing No -Bioengineered Tissue No -Topical Lidocaine (%) 4 -Lidocaine (ml) 5 -Bleeding Controlled with NA -Treatment Response Procedure Tolerated Well [See Physician Procedure note for Specifics] Pain Scale: 0-10 Numeric [Pain] -Is Patient Pain Free? Yes Musculoskeletal: No Muscle Wasting Neurological: Cranial nerves II-XII grossly intact Psych/Mental Status: Normal Affect Debridement Note Post-Debridement Measurements/Treatment WC - Nurse 2 - General Ulcer CM Notes Start: 02/22/18 11:38 Freq: Status: Active Protocol: Activity Type Activity Date Activity User E-Sign Co-Sign Detail Recorded Client Recorded Date Recorded By Document 02/27/18 11:53 VALDEMAR [id number] 02/27/18 11:55 JS Document 03/06/18 10:59 [id number] 03/06/18 11:06 JS 02/27/18 03/06/18 11:53 10:59 Wound Center Nurse 2 #4 left medial upper thigh -Time 11:53 11:00 -Correct Patient Yes Yes -Correct Side, Site, Position Yes Yes -Correct Procedure Yes Yes -Procedure Performed Yes No -Type of Procedure Debridement -Clinical Debridement Subcutaneous -Post Debridement Size (cm) - Length 0.4 0 -Post Debridement Size (cm) - Width 2.2 0 -Post Debridement Size (cm) - Depth 0.1 0 -Total Square Cm 0.88 0 -Wound/Ulcer Outcome Not Healed Healed- Epithelialized -Ulcer Cleansing Rinsed/ Irrigated with Saline -Foul Odor after Cleansing No -Bioengineered Tissue No -Topical Lidocaine (%) 4 -Lidocaine (ml) 5 -Bleeding Controlled with NA -Treatment Response Procedure Tolerated Well #3 RT LAT LE -Time 11:54 11:04 -Correct Patient Yes Yes -Correct Side, Site, Position Yes Yes -Correct Procedure Yes Yes -Procedure Performed No Yes -Type of Procedure Debridement -Clinical Debridement Subcutaneous -Post Debridement Size (cm) - Length 0 0.6 -Post Debridement Size (cm) - Width 0 0.9 -Post Debridement Size (cm) - Depth 0 0.1 -Total Square Cm 0 0.54 -Wound/Ulcer Outcome Healed- Not Healed Epithelialized -Ulcer Cleansing Rinsed/ Irrigated with Saline -Foul Odor after Cleansing No -Bioengineered Tissue No -Topical Lidocaine (%) 4 -Lidocaine (ml) 5 -Bleeding Controlled with NA -Treatment Response Procedure Tolerated Well #2 [facility] LLE CLUSTER -Time 11:54 -Correct Patient Yes -Correct Side, Site, Position Yes -Correct Procedure Yes -Procedure Performed No -Post Debridement Size (cm) - Length 0 -Post Debridement Size (cm) - Width 0 -Post Debridement Size (cm) - Depth 0 -Total Square Cm 0 -Wound/Ulcer Outcome Healed- Epithelialized #1 LEFT BAILEY -Time 11:54 11:00 -Correct Patient Yes Yes -Correct Side, Site, Position Yes Yes -Correct Procedure Yes Yes -Procedure Performed Yes Yes -Type of Procedure Debridement Debridement -Clinical Debridement Subcutaneous Subcutaneous -Post Debridement Size (cm) - Length 3 2.8 -Post Debridement Size (cm) - Width 1.1 1.1 -Post Debridement Size (cm) - Depth 0.2 0.1 -Total Square Cm 3.3 3.08 -Wound/Ulcer Outcome Not Healed Not Healed -Ulcer Cleansing Rinsed/ Rinsed/ Irrigated with Irrigated with Saline Saline -Foul Odor after Cleansing No No -Bioengineered Tissue No No -Topical Lidocaine (%) 4 4 -Lidocaine (ml) 5 5 -Bleeding Controlled with NA NA -Treatment Response Procedure Procedure Tolerated Well Tolerated Well Pain Scale: 0-10 Numeric Is Patient Pain Free? Yes Yes Wound debrided: Left bailey Wound Grade/Stage: Leigh II Type of Debridement: Excisional debridement Anesthesia Used: 4% Lidocaine Solution Depth: Down to and including healthy tissue, in the subcutaneous layer Percentage of wound debrided: 100 Instrument Used: 5mm curette Tissue Removed: Slough and devitalized tissue Severity: Fat Layer Exposed Amount of bleeding with debridement: Mild Bleeding Controlled with: Pressure Patient tolerated procedure well - Additional Wound Wound debrided: Right lateral lower extremity Wound Grade/Stage: WagnerI Type of Debridement: Excisional debridement Anesthesia Used: 4% Lidocaine Solution Depth: Down to and including healthy tissue, in the subcutaneous layer Percentage of wound debrided: 100 Instrument Used: 5mm curette Tissue Removed: Slough and devitalized tissue Severity: Fat Layer Exposed Amount of bleeding with debridement: Mild Bleeding Controlled with: Pressure Patient tolerated procedure: Patient tolerated procedure well Assessment/Plan Active Problems (Last Reviewed 10/01/17 @ 09:34 by Sandy Valdez) Ulcer of left lower extremity with fat layer exposed (Chronic) Venous insufficiency of both lower extremities (Chronic) Type 2 diabetes mellitus (Chronic) Assessment: Left lower extremity ulcer most likely secondary to venous insufficiency. Diabetes mellitus type 2, poorly controlled. Bilateral lower extremity venous insufficiency. Plan: Reopening of right lateral lower extremity ulcer. Debridement done as documented above. Procedure was well-tolerated. Continue Promogran to all ulcers with light 3M wraps. Continued increased protein intake/supplements recommended. Elevate lower extremity when seated and in bed. Follow-up with PCP for optimal blood sugar management. F/U visit in 1 week. Advised to call with any questions or concerns. This note was generated with [employer] dictation software. It may contain incorrect words, spelling, and punctuation that were not noted in checking the note before signing.
--- NOTE | 2018-03-06 11:12 | PN.PCM_ITS ---
(1) Type 2 diabetes mellitus Status: Chronic Current Visit: Yes Qualifiers: Code(s): E11.9 - Type 2 diabetes mellitus without complications (2) Ulcer of left lower extremity with fat layer exposed Status: Chronic Current Visit: Yes Code(s): L97.922 - Non-pressure chronic ulcer of unspecified part of left lower leg with fat layer exposed (3) Venous insufficiency of both lower extremities Status: Chronic Current Visit: Yes Code(s): I87.2 - Venous insufficiency ( chronic) (peripheral) Type of Wound Date of Service: 03/06/18 Chief Complaint: Left lower extremity ulcers. Bilateral lower extremity swelling. History of Wound: Ms. Jovel 20-year-old who presents to the wound center due to nonhealing left lower extremity wounds/ulcers. Exact etiology is unknown however patient believes it started in early December. She has had no significant wound care but has covered the wound surfaces with Band-Aids. She has noted increased drainage from the wound of clear substance. She was recently seen by primary care physician and started on Augmentin. She has had no cultures done. She feels well otherwise and denies chills, fever, nausea, vomiting or any change in her bowel habit. She is not very compliant with her diabetic care. She is being seen for Dr. De Santiago in her absence for follow up treatment today. She has been tolerating 3M dressings and promogran. Is tolerating Clindamycin as well. Has a few doses left. Has missed some doses. Denies increased drainage , pain or fever or chills. Progress of Wound: Stable. No new complaints. - Physical Exam Vital Signs Temp Pulse Resp BP 97.7 F L 64 16 158/71 H 03/06/18 10:01 02/27/18 11:11 03/06/18 10:01 02/27/18 11:11 General: Alert, Oriented x3, Cooperative HEENT: Atraumatic Oral: Moist Mucosa Neck: Supple Lungs: Normal air movement Abdomen: Non Tender Extremities: No cyanosis, Edema Skin: Ulcer/ Wound Wound Measurements and Assessment WC - Nurse 1 - General Ulcer Measurement Start: 02/22/18 11:38 Freq: Status: Active Protocol: Activity Type Activity Date Activity User E-Sign Co-Sign Detail Recorded Client Recorded Date Recorded By Document 03/06/18 10:01 [facility] [id number] 03/06/18 10:15 BMF 03/06/18 10:01 Wound Center Nurse 1 [Ulcer Assessment] #4 left medial upper thigh -Combined with other wound No -Current Size (cm) - Length 0.1 -Current Size (cm) - Width 0.1 -Current Size (cm) - Depth 0.1 -Total Square Cm 0.01 -Epithelialization Large 67-100% -Tunneling No -Undermining/Tunneling No -Circular Undermining No #1 LEFT BAILEY -Combined with other wound No -Current Size (cm) - Length 3 -Current Size (cm) - Width 1.4 -Current Size (cm) - Depth 0.1 -Total Square Cm 4.2 -Photo Taken No -Epithelialization Small 1-33% -Tunneling No -Undermining/Tunneling No -Circular Undermining No -Exudate Amt Medium (34-66%) -Exudate Type Serosanguineous -Wound Margin Distinct, Outline Attached -Granulation Amt Medium (34-66%) -Granulation Quality Red -Slough/Fibrin Yes -Necrosis Amt Medium (34-66%) -Necrotic Tissue Type Adherent Slough -Structure Exposed N/A -Texture (Jessie-wound Skin Appearance) Scarring -Moisture (Jessie-wound Skin Appearance Dry/Scaly ) -Color (Jessie-wound Skin Appearance) Assessed Erythema -Temperature (Jessie-wound Skin No Abnormality Appearance) (Pt Warm) -Tenderness on Palpation (Jessie-wound No Skin Appearance) -Ulcer Cleansing Wound Cleanser -Foul Odor after Cleansing No -Anesthetic Used 4% Lidocaine Solution [Edema Assessment] -Lower Limb Edema Present Yes -Right Calf (cm) 31 -Right Ankle (cm) 23 -Left Calf (cm) 31 -Left Ankle (cm) 22 WC - Nurse 2 - General Ulcer CM Notes Start: 02/22/18 11:38 Freq: Status: Active Protocol: Activity Type Activity Date Activity User E-Sign Co-Sign Detail Recorded Client Recorded Date Recorded By Document 03/06/18 10:59 VALDEMAR [id number] 03/06/18 11:06 03/06/18 10:59 Wound Center Nurse 2 [Procedure/Treatment] #4 left medial upper thigh -Time 11:00 -Correct Patient Yes -Correct Side, Site, Position Yes -Correct Procedure Yes -Procedure Performed No -Post Debridement Size (cm) - Length 0 -Post Debridement Size (cm) - Width 0 -Post Debridement Size (cm) - Depth 0 -Total Square Cm 0 -Wound/Ulcer Outcome Healed- Epithelialized #3 RT LAT LE -Time 11:04 -Correct Patient Yes -Correct Side, Site, Position Yes -Correct Procedure Yes -Procedure Performed Yes -Type of Procedure Debridement -Clinical Debridement Subcutaneous -Post Debridement Size (cm) - Length 0.6 -Post Debridement Size (cm) - Width 0.9 -Post Debridement Size (cm) - Depth 0.1 -Total Square Cm 0.54 -Wound/Ulcer Outcome Not Healed -Ulcer Cleansing Rinsed/ Irrigated with Saline -Foul Odor after Cleansing No -Bioengineered Tissue No -Topical Lidocaine (%) 4 -Lidocaine (ml) 5 -Bleeding Controlled with NA -Treatment Response Procedure Tolerated Well #1 LEFT BAILEY -Time 11:00 -Correct Patient Yes -Correct Side, Site, Position Yes -Correct Procedure Yes -Procedure Performed Yes -Type of Procedure Debridement -Clinical Debridement Subcutaneous -Post Debridement Size (cm) - Length 2.8 -Post Debridement Size (cm) - Width 1.1 -Post Debridement Size (cm) - Depth 0.1 -Total Square Cm 3.08 -Wound/Ulcer Outcome Not Healed -Ulcer Cleansing Rinsed/ Irrigated with Saline -Foul Odor after Cleansing No -Bioengineered Tissue No -Topical Lidocaine (%) 4 -Lidocaine (ml) 5 -Bleeding Controlled with NA -Treatment Response Procedure Tolerated Well [See Physician Procedure note for Specifics] Pain Scale: 0-10 Numeric [Pain] -Is Patient Pain Free? Yes Musculoskeletal: No Muscle Wasting Neurological: Cranial nerves II-XII grossly intact Psych/Mental Status: Normal Affect Debridement Note Post-Debridement Measurements/Treatment WC - Nurse 2 - General Ulcer CM Notes Start: 02/22/18 11:38 Freq: Status: Active Protocol: Activity Type Activity Date Activity User E-Sign Co-Sign Detail Recorded Client Recorded Date Recorded By Document 02/27/18 11:53 VALDEMAR [id number] 02/27/18 11:55 JS Document 03/06/18 10:59 [id number] 03/06/18 11:06 JS 02/27/18 03/06/18 11:53 10:59 Wound Center Nurse 2 #4 left medial upper thigh -Time 11:53 11:00 -Correct Patient Yes Yes -Correct Side, Site, Position Yes Yes -Correct Procedure Yes Yes -Procedure Performed Yes No -Type of Procedure Debridement -Clinical Debridement Subcutaneous -Post Debridement Size (cm) - Length 0.4 0 -Post Debridement Size (cm) - Width 2.2 0 -Post Debridement Size (cm) - Depth 0.1 0 -Total Square Cm 0.88 0 -Wound/Ulcer Outcome Not Healed Healed- Epithelialized -Ulcer Cleansing Rinsed/ Irrigated with Saline -Foul Odor after Cleansing No -Bioengineered Tissue No -Topical Lidocaine (%) 4 -Lidocaine (ml) 5 -Bleeding Controlled with NA -Treatment Response Procedure Tolerated Well #3 RT LAT LE -Time 11:54 11:04 -Correct Patient Yes Yes -Correct Side, Site, Position Yes Yes -Correct Procedure Yes Yes -Procedure Performed No Yes -Type of Procedure Debridement -Clinical Debridement Subcutaneous -Post Debridement Size (cm) - Length 0 0.6 -Post Debridement Size (cm) - Width 0 0.9 -Post Debridement Size (cm) - Depth 0 0.1 -Total Square Cm 0 0.54 -Wound/Ulcer Outcome Healed- Not Healed Epithelialized -Ulcer Cleansing Rinsed/ Irrigated with Saline -Foul Odor after Cleansing No -Bioengineered Tissue No -Topical Lidocaine (%) 4 -Lidocaine (ml) 5 -Bleeding Controlled with NA -Treatment Response Procedure Tolerated Well #2 [facility] LLE CLUSTER -Time 11:54 -Correct Patient Yes -Correct Side, Site, Position Yes -Correct Procedure Yes -Procedure Performed No -Post Debridement Size (cm) - Length 0 -Post Debridement Size (cm) - Width 0 -Post Debridement Size (cm) - Depth 0 -Total Square Cm 0 -Wound/Ulcer Outcome Healed- Epithelialized #1 LEFT BAILEY -Time 11:54 11:00 -Correct Patient Yes Yes -Correct Side, Site, Position Yes Yes -Correct Procedure Yes Yes -Procedure Performed Yes Yes -Type of Procedure Debridement Debridement -Clinical Debridement Subcutaneous Subcutaneous -Post Debridement Size (cm) - Length 3 2.8 -Post Debridement Size (cm) - Width 1.1 1.1 -Post Debridement Size (cm) - Depth 0.2 0.1 -Total Square Cm 3.3 3.08 -Wound/Ulcer Outcome Not Healed Not Healed -Ulcer Cleansing Rinsed/ Rinsed/ Irrigated with Irrigated with Saline Saline -Foul Odor after Cleansing No No -Bioengineered Tissue No No -Topical Lidocaine (%) 4 4 -Lidocaine (ml) 5 5 -Bleeding Controlled with NA NA -Treatment Response Procedure Procedure Tolerated Well Tolerated Well Pain Scale: 0-10 Numeric Is Patient Pain Free? Yes Yes Wound debrided: Left bailey Wound Grade/Stage: Leigh II Type of Debridement: Excisional debridement Anesthesia Used: 4% Lidocaine Solution Depth: Down to and including healthy tissue, in the subcutaneous layer Percentage of wound debrided: 100 Instrument Used: 5mm curette Tissue Removed: Slough and devitalized tissue Severity: Fat Layer Exposed Amount of bleeding with debridement: Mild Bleeding Controlled with: Pressure Patient tolerated procedure well - Additional Wound Wound debrided: Right lateral lower extremity Wound Grade/Stage: WagnerI Type of Debridement: Excisional debridement Anesthesia Used: 4% Lidocaine Solution Depth: Down to and including healthy tissue, in the subcutaneous layer Percentage of wound debrided: 100 Instrument Used: 5mm curette Tissue Removed: Slough and devitalized tissue Severity: Fat Layer Exposed Amount of bleeding with debridement: Mild Bleeding Controlled with: Pressure Patient tolerated procedure: Patient tolerated procedure well Assessment/Plan Active Problems (Last Reviewed 10/01/17 @ 09:34 by Sandy Valdez) Ulcer of left lower extremity with fat layer exposed (Chronic) Venous insufficiency of both lower extremities (Chronic) Type 2 diabetes mellitus (Chronic) Assessment: Left lower extremity ulcer most likely secondary to venous insufficiency. Diabetes mellitus type 2, poorly controlled. Bilateral lower extremity venous insufficiency. Plan: Reopening of right lateral lower extremity ulcer. Debridement done as documented above. Procedure was well-tolerated. Continue Promogran to all ulcers with light 3M wraps. Continued increased protein intake/supplements recommended. Elevate lower extremity when seated and in bed. Follow-up with PCP for optimal blood sugar management. F/U visit in 1 week. Advised to call with any questions or concerns. This note was generated with [employer] dictation software. It may contain incorrect words, spelling, and punctuation that were not noted in checking the note before signing.
[2018-03-08 08:50] VITALS: BP 157/67; PULSE 62; RESP 16; TEMP 36.3
[2018-03-13 10:25] VITALS: BP 119/49; PULSE 70; RESP 18; TEMP 36.3
--- NOTE | 2018-03-13 10:52 | PCM.WC.PN ---
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 Bilateral lower extremity swelling. History of Wound: Ms. Jovel 20-year-old who presents to the wound center due to nonhealing left lower extremity wounds/ulcers. Exact etiology is unknown however patient believes it started in early December. She has had no significant wound care but has covered the wound surfaces with Band-Aids. She has noted increased drainage from the wound of clear substance. She was recently seen by primary care physician and started on Augmentin. She has had no cultures done. She feels well otherwise and denies chills, fever, nausea, vomiting or any change in her bowel habit. She is not very compliant with her diabetic care. She is being seen for Dr. De Santiago in her absence for follow up treatment today. She has been tolerating 3M dressings and promogran. Is tolerating Clindamycin as well. Has a few doses left. Has missed some doses. Denies increased drainage, pain or fever or chills. Progress of Wound: Improving. - Physical Exam Vital Signs Temp Pulse Resp BP 97.3 F L 70 18 119/49 L 03/13/18 10:25 03/13/18 10:25 03/13/18 10:25 03/13/18 10:25 General: Alert, Oriented x3, Cooperative, No apparent distress HEENT: Atraumatic Oral: Moist Mucosa Neck: Supple Lungs: Normal air movement Abdomen: Non Tender Extremities: No cyanosis, Edema Skin: Ulcer/ Wound Wound Measurements and Assessment WC - Nurse 1 - General Ulcer Measurement Start: 02/22/18 11:38 Freq: Status: Active Protocol: Activity Type Activity Date Activity User E-Sign Co-Sign Detail Recorded Client Recorded Date Recorded By Document 03/13/18 10:25 RB [id number] 03/13/18 10:40 RB 03/13/18 10:25 Wound Center Nurse 1 [Ulcer Assessment] #3 RT LAT LE -Combined with other wound No -Current Size (cm) - Length 0.3 -Current Size (cm) - Width 0.2 -Current Size (cm) - Depth 0.2 -Total Square Cm 0.06 -Epithelialization Small 1-33% -Tunneling No -Undermining/Tunneling No -Circular Undermining No -Classification - Thickness Full Thickness without Exposed Support Structure -Exudate Amt Small (1-33%) -Exudate Type Serosanguineous -Wound Margin Distinct, Outline Attached -Granulation Amt Small (1-33%) -Granulation Quality [place] -Slough/Fibrin Yes -Necrosis Amt Large (67-100%) -Necrotic Tissue Type Adherent Slough -Structure Exposed N/A -Texture (Jessie-wound Skin Appearance) Assessed -Moisture (Jessie-wound Skin Appearance Assessed ) -Color (Jessie-wound Skin Appearance) Assessed -Temperature (Jessie-wound Skin No Abnormality Appearance) (Pt Warm) -Tenderness on Palpation (Jessie-wound No Skin Appearance) -Ulcer Cleansing Wound Cleanser -Foul Odor after Cleansing No -Anesthetic Used 4% Lidocaine Solution #1 LEFT WALLER -Combined with other wound No -Current Size (cm) - Length 2.2 -Current Size (cm) - Width 1 -Current Size (cm) - Depth 0.2 -Total Square Cm 2.2 -Photo Taken No -Tunneling No -Undermining/Tunneling No -Circular Undermining No -Classification - Thickness Full Thickness without Exposed Support Structure -Exudate Amt Small (1-33%) -Exudate Type Serosanguineous -Wound Margin Distinct, Outline Attached -Granulation Amt Large (67-100%) -Granulation Quality [place] Red -Slough/Fibrin Yes -Necrosis Amt Small (1-33%) -Necrotic Tissue Type Adherent Slough -Structure Exposed N/A -Texture (Jessie-wound Skin Appearance) Assessed -Moisture (Jessie-wound Skin Appearance Assessed ) -Color (Jessie-wound Skin Appearance) Assessed -Temperature (Jessie-wound Skin No Abnormality Appearance) (Pt Warm) -Tenderness on Palpation (Jessie-wound No Skin Appearance) -Ulcer Cleansing Wound Cleanser -Foul Odor after Cleansing No -Anesthetic Used 4% Lidocaine Solution [Edema Assessment] -Lower Limb Edema Present Yes -Right Calf (cm) 33.2 -Right Ankle (cm) 22.7 -Left Calf (cm) 31.2 -Left Ankle (cm) 22.1 WC - Nurse 2 - General Ulcer CM Notes Start: 02/22/18 11:38 Freq: Status: Active Protocol: Activity Type Activity Date Activity User E-Sign Co-Sign Detail Recorded Client Recorded Date Recorded By Document 03/13/18 10:50 [id number] 03/13/18 10:51 03/13/18 10:50 Wound Center Nurse 2 [Procedure/Treatment] #3 RT LAT LE -Time 10:50 -Correct Patient Yes -Correct Side, Site, Position Yes -Correct Procedure Yes -Procedure Performed Yes -Type of Procedure Debridement -Clinical Debridement Subcutaneous -Post Debridement Size (cm) - Length 0.4 -Post Debridement Size (cm) - Width 0.6 -Post Debridement Size (cm) - Depth 0.1 -Total Square Cm 0.24 -Wound/Ulcer Outcome Not Healed -Ulcer Cleansing Rinsed/ Irrigated with Saline -Foul Odor after Cleansing No -Bioengineered Tissue No -Bleeding Controlled with Pressure -Treatment Response Procedure Tolerated Well #1 LEFT WALLER -Time 10:50 -Correct Patient Yes -Correct Side, Site, Position Yes -Correct Procedure Yes -Procedure Performed Yes -Type of Procedure Debridement -Clinical Debridement Subcutaneous -Post Debridement Size (cm) - Length 2.1 -Post Debridement Size (cm) - Width 1.0 -Post Debridement Size (cm) - Depth 0.2 -Total Square Cm 2.10 -Wound/Ulcer Outcome Not Healed -Ulcer Cleansing Rinsed/ Irrigated with Saline -Foul Odor after Cleansing No -Bioengineered Tissue No -Bleeding Controlled with Pressure -Treatment Response Procedure Tolerated Well [See Physician Procedure note for Specifics] Pain Scale: 0-10 Numeric [Pain] -Is Patient Pain Free? Yes Musculoskeletal: No Muscle Wasting Neurological: Cranial nerves II-XII grossly intact Psych/Mental Status: Normal Affect Debridement Note Post-Debridement Measurements/Treatment WC - Nurse 2 - General Ulcer CM Notes Start: 02/22/18 11:38 Freq: Status: Active Protocol: Activity Type Activity Date Activity User E-Sign Co-Sign Detail Recorded Client Recorded Date Recorded By Document 02/27/18 11:53 [id number] 02/27/18 11:55 JS Document 03/06/18 10:59 JS [id number] 03/06/18 11:06 JS Document 03/13/18 10:50 CS [id number] 03/13/18 10:51 CS 02/27/18 03/06/18 03/13/18 11:53 10:59 10:50 Wound Center Nurse 2 #4 left medial upper thigh -Time 11:53 11:00 -Correct Patient Yes Yes -Correct Side, Site, Position Yes Yes -Correct Procedure Yes Yes -Procedure Performed Yes No -Type of Procedure Debridement -Clinical Debridement Subcutaneous -Post Debridement Size (cm) - Length 0.4 0 -Post Debridement Size (cm) - Width 2.2 0 -Post Debridement Size (cm) - Depth 0.1 0 -Total Square Cm 0.88 0 -Wound/Ulcer Outcome Not Healed Healed- Epithelialized -Ulcer Cleansing Rinsed/ Irrigated with Saline -Foul Odor after Cleansing No -Bioengineered Tissue No -Topical Lidocaine (%) 4 -Lidocaine (ml) 5 -Bleeding Controlled with NA -Treatment Response Procedure Tolerated Well #3 RT LAT LE -Time 11:54 11:04 10:50 -Correct Patient Yes Yes Yes -Correct Side, Site, Position Yes Yes Yes -Correct Procedure Yes Yes Yes -Procedure Performed No Yes Yes -Type of Procedure Debridement Debridement -Clinical Debridement Subcutaneous Subcutaneous -Post Debridement Size (cm) - Length 0 0.6 0.4 -Post Debridement Size (cm) - Width 0 0.9 0.6 -Post Debridement Size (cm) - Depth 0 0.1 0.1 -Total Square Cm 0 0.54 0.24 -Wound/Ulcer Outcome Healed- Not Healed Not Healed Epithelialized -Ulcer Cleansing Rinsed/ Rinsed/ Irrigated with Irrigated with Saline Saline -Foul Odor after Cleansing No No -Bioengineered Tissue No No -Topical Lidocaine (%) 4 -Lidocaine (ml) 5 -Bleeding Controlled with NA Pressure -Treatment Response Procedure Procedure Tolerated Well Tolerated Well #2 MEDIAL LLE CLUSTER -Time 11:54 -Correct Patient Yes -Correct Side, Site, Position Yes -Correct Procedure Yes -Procedure Performed No -Post Debridement Size (cm) - Length 0 -Post Debridement Size (cm) - Width 0 -Post Debridement Size (cm) - Depth 0 -Total Square Cm 0 -Wound/Ulcer Outcome Healed- Epithelialized #1 LEFT WALLER -Time 11:54 11:00 10:50 -Correct Patient Yes Yes Yes -Correct Side, Site, Position Yes Yes Yes -Correct Procedure Yes Yes Yes -Procedure Performed Yes Yes Yes -Type of Procedure Debridement Debridement Debridement -Clinical Debridement Subcutaneous Subcutaneous Subcutaneous -Post Debridement Size (cm) - Length 3 2.8 2.1 -Post Debridement Size (cm) - Width 1.1 1.1 1.0 -Post Debridement Size (cm) - Depth 0.2 0.1 0.2 -Total Square Cm 3.3 3.08 2.10 -Wound/Ulcer Outcome Not Healed Not Healed Not Healed -Ulcer Cleansing Rinsed/ Rinsed/ Rinsed/ Irrigated with Irrigated with Irrigated with Saline Saline Saline -Foul Odor after Cleansing No No No -Bioengineered Tissue No No No -Topical Lidocaine (%) 4 4 -Lidocaine (ml) 5 5 -Bleeding Controlled with NA NA Pressure -Treatment Response Procedure Procedure Procedure Tolerated Well Tolerated Well Tolerated Well Pain Scale: 0-10 Numeric Is Patient Pain Free? Yes Yes Yes Wound debrided: left lower extremity Wound Grade/Stage: Grade II Type of Debridement: Excisional debridement Anesthesia Used: 4% Lidocaine Solution Depth: Down to and including healthy tissue, in the subcutaneous layer Percentage of wound debrided: 100 Instrument Used: 3mm curette Tissue Removed: Slough and devitalized tissue Severity: Fat Layer Exposed Amount of bleeding with debridement: Mild Bleeding Controlled with: Pressure Patient tolerated procedure well - Additional Wound Wound debrided: Right lower extremity Wound Grade/Stage: Grade I Type of Debridement: Excisional debridement Anesthesia Used: 4% Lidocaine Solution Depth: Down to and including healthy tissue, in the subcutaneous layer Percentage of wound debrided: 100 Instrument Used: 3mm curette Tissue Removed: Slough and devitalized tissue Severity: Fat Layer Exposed Amount of bleeding with debridement: Mild Bleeding Controlled with: Pressure Patient tolerated procedure: Patient tolerated procedure well Assessment/Plan Active Problems (Last Reviewed 10/01/17 @ 09:34 by Sandy Valdez) Ulcer of left lower extremity with fat layer exposed (Chronic) Venous insufficiency of both lower extremities (Chronic) Type 2 diabetes mellitus (Chronic) Assessment: Left lower extremity ulcer most likely secondary to venous insufficiency. Diabetes mellitus type 2, poorly controlled. Bilateral lower extremity venous insufficiency. Plan: Improving ulcers.Debridement done as documented above. Procedure was well-tolerated. Continue Promogran to all ulcers with light 3M wraps. Continued increased protein intake/supplements recommended. Elevate lower extremity when seated and in bed. Follow-up with PCP for optimal blood sugar management. F/U visit in 1 week. Advised to call with any questions or concerns. This note was generated with [employer] dictation software. It may contain incorrect words, spelling, and punctuation that were not noted in checking the note before signing.
--- NOTE | 2018-03-13 10:56 | PN.PCM_ITS ---
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 Bilateral lower extremity swelling. History of Wound: Ms. Jovel 20-year-old who presents to the wound center due to nonhealing left lower extremity wounds/ulcers. Exact etiology is unknown however patient believes it started in early December. She has had no significant wound care but has covered the wound surfaces with Band-Aids. She has noted increased drainage from the wound of clear substance. She was recently seen by primary care physician and started on Augmentin. She has had no cultures done. She feels well otherwise and denies chills, fever, nausea, vomiting or any change in her bowel habit. She is not very compliant with her diabetic care. She is being seen for Dr. De Santiago in her absence for follow up treatment today. She has been tolerating 3M dressings and promogran. Is tolerating Clindamycin as well. Has a few doses left. Has missed some doses. Denies increased drainage , pain or fever or chills. Progress of Wound: Improving. - Physical Exam Vital Signs Temp Pulse Resp BP 97.3 F L 70 18 119/49 L 03/13/18 10:25 03/13/18 10:25 03/13/18 10:25 03/13/18 10:25 General: Alert, Oriented x3, Cooperative, No apparent distress HEENT: Atraumatic Oral: Moist Mucosa Neck: Supple Lungs: Normal air movement Abdomen: Non Tender Extremities: No cyanosis, Edema Skin: Ulcer/ Wound Wound Measurements and Assessment WC - Nurse 1 - General Ulcer Measurement Start: 02/22/18 11:38 Freq: Status: Active Protocol: Activity Type Activity Date Activity User E-Sign Co-Sign Detail Recorded Client Recorded Date Recorded By Document 03/13/18 10:25 RB [id number] 03/13/18 10:40 RB 03/13/18 10:25 Wound Center Nurse 1 [Ulcer Assessment] #3 RT LAT LE -Combined with other wound No -Current Size (cm) - Length 0.3 -Current Size (cm) - Width 0.2 -Current Size (cm) - Depth 0.2 -Total Square Cm 0.06 -Epithelialization Small 1-33% -Tunneling No -Undermining/Tunneling No -Circular Undermining No -Classification - Thickness Full Thickness without Exposed Support Structure -Exudate Amt Small (1-33%) -Exudate Type Serosanguineous -Wound Margin Distinct, Outline Attached -Granulation Amt Small (1-33%) -Granulation Quality [place] -Slough/Fibrin Yes -Necrosis Amt Large (67-100%) -Necrotic Tissue Type Adherent Slough -Structure Exposed N/A -Texture (Jessie-wound Skin Appearance) Assessed -Moisture (Jessie-wound Skin Appearance Assessed ) -Color (Jessie-wound Skin Appearance) Assessed -Temperature (Jessie-wound Skin No Abnormality Appearance) (Pt Warm) -Tenderness on Palpation (Jessie-wound No Skin Appearance) -Ulcer Cleansing Wound Cleanser -Foul Odor after Cleansing No -Anesthetic Used 4% Lidocaine Solution #1 LEFT WALLER -Combined with other wound No -Current Size (cm) - Length 2.2 -Current Size (cm) - Width 1 -Current Size (cm) - Depth 0.2 -Total Square Cm 2.2 -Photo Taken No -Tunneling No -Undermining/Tunneling No -Circular Undermining No -Classification - Thickness Full Thickness without Exposed Support Structure -Exudate Amt Small (1-33%) -Exudate Type Serosanguineous -Wound Margin Distinct, Outline Attached -Granulation Amt Large (67-100%) -Granulation Quality [place] -Slough/Fibrin Yes -Necrosis Amt Small (1-33%) -Necrotic Tissue Type Adherent Slough -Structure Exposed N/A -Texture (Jessie-wound Skin Appearance) Assessed -Moisture (Jessie-wound Skin Appearance Assessed ) -Color (Jessie-wound Skin Appearance) Assessed -Temperature (Jessie-wound Skin No Abnormality Appearance) (Pt Warm) -Tenderness on Palpation (Jessie-wound No Skin Appearance) -Ulcer Cleansing Wound Cleanser -Foul Odor after Cleansing No -Anesthetic Used 4% Lidocaine Solution [Edema Assessment] -Lower Limb Edema Present Yes -Right Calf (cm) 33.2 -Right Ankle (cm) 22.7 -Left Calf (cm) 31.2 -Left Ankle (cm) 22.1 WC - Nurse 2 - General Ulcer CM Notes Start: 02/22/18 11:38 Freq: Status: Active Protocol: Activity Type Activity Date Activity User E-Sign Co-Sign Detail Recorded Client Recorded Date Recorded By Document 03/13/18 10:50 [id number] 03/13/18 10:51 03/13/18 10:50 Wound Center Nurse 2 [Procedure/Treatment] #3 RT LAT LE -Time 10:50 -Correct Patient Yes -Correct Side, Site, Position Yes -Correct Procedure Yes -Procedure Performed Yes -Type of Procedure Debridement -Clinical Debridement Subcutaneous -Post Debridement Size (cm) - Length 0.4 -Post Debridement Size (cm) - Width 0.6 -Post Debridement Size (cm) - Depth 0.1 -Total Square Cm 0.24 -Wound/Ulcer Outcome Not Healed -Ulcer Cleansing Rinsed/ Irrigated with Saline -Foul Odor after Cleansing No -Bioengineered Tissue No -Bleeding Controlled with Pressure -Treatment Response Procedure Tolerated Well #1 LEFT WALLER -Time 10:50 -Correct Patient Yes -Correct Side, Site, Position Yes -Correct Procedure Yes -Procedure Performed Yes -Type of Procedure Debridement -Clinical Debridement Subcutaneous -Post Debridement Size (cm) - Length 2.1 -Post Debridement Size (cm) - Width 1.0 -Post Debridement Size (cm) - Depth 0.2 -Total Square Cm 2.10 -Wound/Ulcer Outcome Not Healed -Ulcer Cleansing Rinsed/ Irrigated with Saline -Foul Odor after Cleansing No -Bioengineered Tissue No -Bleeding Controlled with Pressure -Treatment Response Procedure Tolerated Well [See Physician Procedure note for Specifics] Pain Scale: 0-10 Numeric [Pain] -Is Patient Pain Free? Yes Musculoskeletal: No Muscle Wasting Neurological: Cranial nerves II-XII grossly intact Psych/Mental Status: Normal Affect Debridement Note Post-Debridement Measurements/Treatment WC - Nurse 2 - General Ulcer CM Notes Start: 02/22/18 11:38 Freq: Status: Active Protocol: Activity Type Activity Date Activity User E-Sign Co-Sign Detail Recorded Client Recorded Date Recorded By Document 02/27/18 11:53 [id number] 02/27/18 11:55 JS Document 03/06/18 10:59 JS [id number] 03/06/18 11:06 JS Document 03/13/18 10:50 CS [id number] 03/13/18 10:51 CS 02/27/18 03/06/18 03/13/18 11:53 10:59 10:50 Wound Center Nurse 2 #4 left medial upper thigh -Time 11:53 11:00 -Correct Patient Yes Yes -Correct Side, Site, Position Yes Yes -Correct Procedure Yes Yes -Procedure Performed Yes No -Type of Procedure Debridement -Clinical Debridement Subcutaneous -Post Debridement Size (cm) - Length 0.4 0 -Post Debridement Size (cm) - Width 2.2 0 -Post Debridement Size (cm) - Depth 0.1 0 -Total Square Cm 0.88 0 -Wound/Ulcer Outcome Not Healed Healed- Epithelialized -Ulcer Cleansing Rinsed/ Irrigated with Saline -Foul Odor after Cleansing No -Bioengineered Tissue No -Topical Lidocaine (%) 4 -Lidocaine (ml) 5 -Bleeding Controlled with NA -Treatment Response Procedure Tolerated Well #3 RT LAT LE -Time 11:54 11:04 10:50 -Correct Patient Yes Yes Yes -Correct Side, Site, Position Yes Yes Yes -Correct Procedure Yes Yes Yes -Procedure Performed No Yes Yes -Type of Procedure Debridement Debridement -Clinical Debridement Subcutaneous Subcutaneous -Post Debridement Size (cm) - Length 0 0.6 0.4 -Post Debridement Size (cm) - Width 0 0.9 0.6 -Post Debridement Size (cm) - Depth 0 0.1 0.1 -Total Square Cm 0 0.54 0.24 -Wound/Ulcer Outcome Healed- Not Healed Not Healed Epithelialized -Ulcer Cleansing Rinsed/ Rinsed/ Irrigated with Irrigated with Saline Saline -Foul Odor after Cleansing No No -Bioengineered Tissue No No -Topical Lidocaine (%) 4 -Lidocaine (ml) 5 -Bleeding Controlled with NA Pressure -Treatment Response Procedure Procedure Tolerated Well Tolerated Well #2 MEDIAL LLE CLUSTER -Time 11:54 -Correct Patient Yes -Correct Side, Site, Position Yes -Correct Procedure Yes -Procedure Performed No -Post Debridement Size (cm) - Length 0 -Post Debridement Size (cm) - Width 0 -Post Debridement Size (cm) - Depth 0 -Total Square Cm 0 -Wound/Ulcer Outcome Healed- Epithelialized #1 LEFT WALLER -Time 11:54 11:00 10:50 -Correct Patient Yes Yes Yes -Correct Side, Site, Position Yes Yes Yes -Correct Procedure Yes Yes Yes -Procedure Performed Yes Yes Yes -Type of Procedure Debridement Debridement Debridement -Clinical Debridement Subcutaneous Subcutaneous Subcutaneous -Post Debridement Size (cm) - Length 3 2.8 2.1 -Post Debridement Size (cm) - Width 1.1 1.1 1.0 -Post Debridement Size (cm) - Depth 0.2 0.1 0.2 -Total Square Cm 3.3 3.08 2.10 -Wound/Ulcer Outcome Not Healed Not Healed Not Healed -Ulcer Cleansing Rinsed/ Rinsed/ Rinsed/ Irrigated with Irrigated with Irrigated with Saline Saline Saline -Foul Odor after Cleansing No No No -Bioengineered Tissue No No No -Topical Lidocaine (%) 4 4 -Lidocaine (ml) 5 5 -Bleeding Controlled with NA NA Pressure -Treatment Response Procedure Procedure Procedure Tolerated Well Tolerated Well Tolerated Well Pain Scale: 0-10 Numeric Is Patient Pain Free? Yes Yes Yes Wound debrided: left lower extremity Wound Grade/Stage: Grade II Type of Debridement: Excisional debridement Anesthesia Used: 4% Lidocaine Solution Depth: Down to and including healthy tissue, in the subcutaneous layer Percentage of wound debrided: 100 Instrument Used: 3mm curette Tissue Removed: Slough and devitalized tissue Severity: Fat Layer Exposed Amount of bleeding with debridement: Mild Bleeding Controlled with: Pressure Patient tolerated procedure well - Additional Wound Wound debrided: Right lower extremity Wound Grade/Stage: Grade I Type of Debridement: Excisional debridement Anesthesia Used: 4% Lidocaine Solution Depth: Down to and including healthy tissue, in the subcutaneous layer Percentage of wound debrided: 100 Instrument Used: 3mm curette Tissue Removed: Slough and devitalized tissue Severity: Fat Layer Exposed Amount of bleeding with debridement: Mild Bleeding Controlled with: Pressure Patient tolerated procedure: Patient tolerated procedure well Assessment/Plan Active Problems (Last Reviewed 10/01/17 @ 09:34 by Sandy Valdez) Ulcer of left lower extremity with fat layer exposed (Chronic) Venous insufficiency of both lower extremities (Chronic) Type 2 diabetes mellitus (Chronic) Assessment: Left lower extremity ulcer most likely secondary to venous insufficiency. Diabetes mellitus type 2, poorly controlled. Bilateral lower extremity venous insufficiency. Plan: Improving ulcers.Debridement done as documented above. Procedure was well -tolerated. Continue Promogran to all ulcers with light 3M wraps. Continued increased protein intake/supplements recommended. Elevate lower extremity when seated and in bed. Follow-up with PCP for optimal blood sugar management. F/U visit in 1 week. Advised to call with any questions or concerns. This note was generated with [employer] dictation software. It may contain incorrect words, spelling, and punctuation that were not noted in checking the note before signing.
== END 2018-03-19 23:59 ==
LOC: WC 10:15
PROVIDERS: Family Provider Family Medicine; PCP Family Medicine; Visit Provider Internal Medicine
DX: E11.622 Type 2 diabetes mellitus with other skin ulcer (principal); L97.822 Non-pressure chronic ulcer of other part of left lower leg with fat layer exposed; I87.2 Venous insufficiency (chronic) (peripheral); M79.89 Other specified soft tissue disorders; E11.65 Type 2 diabetes mellitus with hyperglycemia; L97.222 Non-pressure chronic ulcer of left calf with fat layer exposed
CPT/HCPCS: 11042; 29581; 80048; 82962; 85025; 99213; 99284; A4216; G0463

== ENCOUNTER 2018-04-17 10:45 | Outpatient (RCR) | payer MEDICARE, OTHER, SELFPAY ==
[2018-03-20 01:00] VITALS: BP 119/49; PULSE 70; RESP 18; TEMP 36.3
[2018-03-20 09:50] VITALS: BP 127/63; PULSE 73; RESP 16; TEMP 36.6
--- NOTE | 2018-03-20 10:52 | PCM.WC.PN ---
(1) Type 2 diabetes mellitus Status: Chronic Current Visit: Yes Qualifiers: Code(s): E11.9 - Type 2 diabetes mellitus without complications (2) Ulcer of left lower extremity with fat layer exposed Status: Chronic Current Visit: Yes Code(s): L97.922 - Non-pressure chronic ulcer of unspecified part of left lower leg with fat layer exposed (3) Ulcer of right lower extremity with fat layer exposed Status: Chronic Current Visit: Yes Code(s): L97.912 - Non-pressure chronic ulcer of unspecified part of right lower leg with fat layer exposed (4) Venous insufficiency of both lower extremities Status: Chronic Current Visit: Yes Code(s): I87.2 - Venous insufficiency (chronic) (peripheral) (5) Venous ulcers of both lower extremities Status: Chronic Current Visit: Yes Code(s): I87.2 - Venous insufficiency (chronic) (peripheral); L97.919 - Non-pressure chronic ulcer of unspecified part of right lower leg with unspecified severity; L97.929 - Non-pressure chronic ulcer of unspecified part of left lower leg with unspecified severity Type of Wound Date of Service: 03/20/18 Chief Complaint: Left lower extremity ulcers. Bilateral lower extremity swelling. History of Wound: Ms. Jovel 20-year-old who presents to the wound center due to nonhealing left lower extremity wounds/ulcers. Exact etiology is unknown however patient believes it started in early December. She has had no significant wound care but has covered the wound surfaces with Band-Aids. She has noted increased drainage from the wound of clear substance. She was recently seen by primary care physician and started on Augmentin. She has had no cultures done. She feels well otherwise and denies chills, fever, nausea, vomiting or any change in her bowel habit. She is not very compliant with her diabetic care. She is being seen for Dr. De Santiago in her absence for follow up treatment today. She has been tolerating 3M dressings and promogran. Is tolerating Clindamycin as well. Has a few doses left. Has missed some doses. Denies increased drainage, pain or fever or chills. Progress of Wound: Improving. - Physical Exam Vital Signs Temp Pulse Resp BP 97.8 F 73 16 127/63 H 03/20/18 09:50 03/20/18 09:50 03/20/18 09:50 03/20/18 09:50 General: Alert, Oriented x3, Cooperative, No apparent distress HEENT: Atraumatic Oral: Moist Mucosa Neck: Supple Lungs: Normal air movement Cardiovascular: Regular rate Extremities: No cyanosis, Edema Skin: Ulcer/ Wound Wound Measurements and Assessment WC - Nurse 1 - General Ulcer Measurement Start: 03/20/18 09:50 Freq: Status: Active Protocol: Activity Type Activity Date Activity User E-Sign Co-Sign Detail Recorded Client Recorded Date Recorded By Document 03/20/18 09:50 [id number] 03/20/18 10:02 03/20/18 09:50 Wound Center Nurse 1 [Ulcer Assessment] #3 RT LAT LE -Combined with other wound No -Current Size (cm) - Length 0.7 -Current Size (cm) - Width 0.5 -Current Size (cm) - Depth 0.1 -Total Square Cm 0.35 -Photo Taken No -Epithelialization Small 1-33% -Tunneling No -Undermining/Tunneling No -Wound Margin Flat & Intact -Granulation Amt Small (1-33%) -Granulation Quality [place] -Slough/Fibrin No -Texture (Jessie-wound Skin Appearance) Assessed Localized Edema -Moisture (Jessie-wound Skin Appearance Assessed ) -Color (Jessie-wound Skin Appearance) Assessed -Temperature (Jessie-wound Skin No Abnormality Appearance) (Pt Warm) -Tenderness on Palpation (Jessie-wound No Skin Appearance) -Ulcer Cleansing Wound Cleanser -Foul Odor after Cleansing No -Anesthetic Used 4% Lidocaine Solution #2 MEDIAL LLE CLUSTER -Current Size (cm) - Length 0.1 #1 LEFT WALLER -Current Size (cm) - Length 0.8 -Current Size (cm) - Width 0.8 -Current Size (cm) - Depth 0.1 -Total Square Cm 0.64 -Exudate Amt Medium (34-66%) -Exudate Type Serosanguineous -Wound Margin Flat & Intact -Granulation Amt Medium (34-66%) -Granulation Quality [place] -Necrosis Amt Medium (34-66%) -Necrotic Tissue Type Adherent Slough -Texture (Jessie-wound Skin Appearance) Assessed -Moisture (Jessie-wound Skin Appearance Assessed ) Maceration -Color (Jessie-wound Skin Appearance) Assessed -Temperature (Jessie-wound Skin No Abnormality Appearance) (Pt Warm) -Tenderness on Palpation (Jessie-wound No Skin Appearance) -Ulcer Cleansing Wound Cleanser -Foul Odor after Cleansing No -Anesthetic Used 4% Lidocaine Solution [Edema Assessment] -Right Calf (cm) 32.3 -Right Ankle (cm) 23.7 -Left Calf (cm) 29.7 -Left Ankle (cm) 22.5 Musculoskeletal: No Muscle Wasting Psych/Mental Status: Normal Affect Debridement Note Wound debrided: Left lower extremity Wound Grade/Stage: Grade II Type of Debridement: Excisional debridement Anesthesia Used: 4% Lidocaine Solution Depth: Down to and including healthy tissue, in the subcutaneous layer Percentage of wound debrided: 100 Instrument Used: 5mm curette Tissue Removed: Slough and devitalized tissue Severity: Fat Layer Exposed Amount of bleeding with debridement: Mild Bleeding Controlled with: Pressure Patient tolerated procedure well - Additional Wound Wound debrided: Right lower extremity Wound Grade/Stage: Grade 1 Type of Debridement: Excisional debridement Anesthesia Used: 4% Lidocaine Solution Depth: Down to and including healthy tissue, in the subcutaneous layer Percentage of wound debrided: 100 Instrument Used: 5mm curette Tissue Removed: Slough and devitalized tissue Severity: Fat Layer Exposed Amount of bleeding with debridement: Mild Bleeding Controlled with: Pressure Patient tolerated procedure: Patient tolerated procedure well Assessment/Plan Active Problems (Last Reviewed 10/01/17 @ 09:34 by Sandy Valdez) Ulcer of left lower extremity with fat layer exposed (Chronic) Venous insufficiency of both lower extremities (Chronic) Ulcer of right lower extremity with fat layer exposed (Chronic) Venous ulcers of both lower extremities (Chronic) Type 2 diabetes mellitus (Chronic) Assessment: Left lower extremity ulcer most likely secondary to venous insufficiency. Diabetes mellitus type 2, poorly controlled. Bilateral lower extremity venous insufficiency. Plan: Improving ulcers.Debridement done as documented above. Procedure was well-tolerated. Continue Promogran to all ulcers with light 3M wraps. Continued increased protein intake/supplements recommended. Elevate lower extremity when seated and in bed. Continue Follow-up with PCP for optimal blood sugar management. F/U visit in 1 week. Advised to call with any questions or concerns. This note was generated with [employer] software. It may contain incorrect words, spelling, and punctuation that were not noted in checking the note before signing.
--- NOTE | 2018-03-20 10:56 | PN.PCM_ITS ---
(1) Type 2 diabetes mellitus Status: Chronic Current Visit: Yes Qualifiers: Code(s): E11.9 - Type 2 diabetes mellitus without complications (2) Ulcer of left lower extremity with fat layer exposed Status: Chronic Current Visit: Yes Code(s): L97.922 - Non-pressure chronic ulcer of unspecified part of left lower leg with fat layer exposed (3) Ulcer of right lower extremity with fat layer exposed Status: Chronic Current Visit: Yes Code(s): L97.912 - Non-pressure chronic ulcer of unspecified part of right lower leg with fat layer exposed (4) Venous insufficiency of both lower extremities Status: Chronic Current Visit: Yes Code(s): I87.2 - Venous insufficiency ( chronic) (peripheral) (5) Venous ulcers of both lower extremities Status: Chronic Current Visit: Yes Code(s): I87.2 - Venous insufficiency ( chronic) (peripheral); L97.919 - Non-pressure chronic ulcer of unspecified part of right lower leg with unspecified severity; L97.929 - Non-pressure chronic ulcer of unspecified part of left lower leg with unspecified severity Type of Wound Date of Service: 03/20/18 Chief Complaint: Left lower extremity ulcers. Bilateral lower extremity swelling. History of Wound: Ms. Jovel 20-year-old who presents to the wound center due to nonhealing left lower extremity wounds/ulcers. Exact etiology is unknown however patient believes it started in early December. She has had no significant wound care but has covered the wound surfaces with Band-Aids. She has noted increased drainage from the wound of clear substance. She was recently seen by primary care physician and started on Augmentin. She has had no cultures done. She feels well otherwise and denies chills, fever, nausea, vomiting or any change in her bowel habit. She is not very compliant with her diabetic care. She is being seen for Dr. De Santiago in her absence for follow up treatment today. She has been tolerating 3M dressings and promogran. Is tolerating Clindamycin as well. Has a few doses left. Has missed some doses. Denies increased drainage , pain or fever or chills. Progress of Wound: Improving. - Physical Exam Vital Signs Temp Pulse Resp BP 97.8 F 73 16 127/63 H 03/20/18 09:50 03/20/18 09:50 03/20/18 09:50 03/20/18 09:50 General: Alert, Oriented x3, Cooperative, No apparent distress HEENT: Atraumatic Oral: Moist Mucosa Neck: Supple Lungs: Normal air movement Cardiovascular: Regular rate Extremities: No cyanosis, Edema Skin: Ulcer/ Wound Wound Measurements and Assessment WC - Nurse 1 - General Ulcer Measurement Start: 03/20/18 09:50 Freq: Status: Active Protocol: Activity Type Activity Date Activity User E-Sign Co-Sign Detail Recorded Client Recorded Date Recorded By Document 03/20/18 09:50 [id number] 03/20/18 10:02 03/20/18 09:50 Wound Center Nurse 1 [Ulcer Assessment] #3 RT LAT LE -Combined with other wound No -Current Size (cm) - Length 0.7 -Current Size (cm) - Width 0.5 -Current Size (cm) - Depth 0.1 -Total Square Cm 0.35 -Photo Taken No -Epithelialization Small 1-33% -Tunneling No -Undermining/Tunneling No -Wound Margin Flat & Intact -Granulation Amt Small (1-33%) -Granulation Quality [place] -Slough/Fibrin No -Texture (Jessie-wound Skin Appearance) Assessed Localized Edema -Moisture (Jessie-wound Skin Appearance Assessed ) -Color (Jessie-wound Skin Appearance) Assessed -Temperature (Jessie-wound Skin No Abnormality Appearance) (Pt Warm) -Tenderness on Palpation (Jessie-wound No Skin Appearance) -Ulcer Cleansing Wound Cleanser -Foul Odor after Cleansing No -Anesthetic Used 4% Lidocaine Solution #2 MEDIAL LLE CLUSTER -Current Size (cm) - Length 0.1 #1 LEFT WALLER -Current Size (cm) - Length 0.8 -Current Size (cm) - Width 0.8 -Current Size (cm) - Depth 0.1 -Total Square Cm 0.64 -Exudate Amt Medium (34-66%) -Exudate Type Serosanguineous -Wound Margin Flat & Intact -Granulation Amt Medium (34-66%) -Granulation Quality [place] -Necrosis Amt Medium (34-66%) -Necrotic Tissue Type Adherent Slough -Texture (Jessie-wound Skin Appearance) Assessed -Moisture (Jessie-wound Skin Appearance Assessed ) Maceration -Color (Jessie-wound Skin Appearance) Assessed -Temperature (Jessie-wound Skin No Abnormality Appearance) (Pt Warm) -Tenderness on Palpation (Jessie-wound No Skin Appearance) -Ulcer Cleansing Wound Cleanser -Foul Odor after Cleansing No -Anesthetic Used 4% Lidocaine Solution [Edema Assessment] -Right Calf (cm) 32.3 -Right Ankle (cm) 23.7 -Left Calf (cm) 29.7 -Left Ankle (cm) 22.5 Musculoskeletal: No Muscle Wasting Psych/Mental Status: Normal Affect Debridement Note Wound debrided: Left lower extremity Wound Grade/Stage: Grade II Type of Debridement: Excisional debridement Anesthesia Used: 4% Lidocaine Solution Depth: Down to and including healthy tissue, in the subcutaneous layer Percentage of wound debrided: 100 Instrument Used: 5mm curette Tissue Removed: Slough and devitalized tissue Severity: Fat Layer Exposed Amount of bleeding with debridement: Mild Bleeding Controlled with: Pressure Patient tolerated procedure well - Additional Wound Wound debrided: Right lower extremity Wound Grade/Stage: Grade 1 Type of Debridement: Excisional debridement Anesthesia Used: 4% Lidocaine Solution Depth: Down to and including healthy tissue, in the subcutaneous layer Percentage of wound debrided: 100 Instrument Used: 5mm curette Tissue Removed: Slough and devitalized tissue Severity: Fat Layer Exposed Amount of bleeding with debridement: Mild Bleeding Controlled with: Pressure Patient tolerated procedure: Patient tolerated procedure well Assessment/Plan Active Problems (Last Reviewed 10/01/17 @ 09:34 by Sandy Valdez) Ulcer of left lower extremity with fat layer exposed (Chronic) Venous insufficiency of both lower extremities (Chronic) Ulcer of right lower extremity with fat layer exposed (Chronic) Venous ulcers of both lower extremities (Chronic) Type 2 diabetes mellitus (Chronic) Assessment: Left lower extremity ulcer most likely secondary to venous insufficiency. Diabetes mellitus type 2, poorly controlled. Bilateral lower extremity venous insufficiency. Plan: Improving ulcers.Debridement done as documented above. Procedure was well -tolerated. Continue Promogran to all ulcers with light 3M wraps. Continued increased protein intake/supplements recommended. Elevate lower extremity when seated and in bed. Continue Follow-up with PCP for optimal blood sugar management. F/U visit in 1 week. Advised to call with any questions or concerns. This note was generated with [employer] software. It may contain incorrect words, spelling, and punctuation that were not noted in checking the note before signing.
[2018-03-27 11:23] VITALS: BP 113/57; PULSE 71; RESP 16; TEMP 35.8
--- NOTE | 2018-03-27 12:13 | PN.PCM_ITS ---
(1) Type 2 diabetes mellitus Status: Chronic Current Visit: Yes Qualifiers: Code(s): E11.9 - Type 2 diabetes mellitus without complications (2) Ulcer of left lower extremity with fat layer exposed Status: Chronic Current Visit: Yes Code(s): L97.922 - Non-pressure chronic ulcer of unspecified part of left lower leg with fat layer exposed (3) Ulcer of right lower extremity with fat layer exposed Status: Chronic Current Visit: Yes Code(s): L97.912 - Non-pressure chronic ulcer of unspecified part of right lower leg with fat layer exposed (4) Venous insufficiency of both lower extremities Status: Chronic Current Visit: Yes Code(s): I87.2 - Venous insufficiency ( chronic) (peripheral) (5) Venous ulcers of both lower extremities Status: Chronic Current Visit: Yes Code(s): I87.2 - Venous insufficiency ( chronic) (peripheral); L97.919 - Non-pressure chronic ulcer of unspecified part of right lower leg with unspecified severity; L97.929 - Non-pressure chronic ulcer of unspecified part of left lower leg with unspecified severity Type of Wound Date of Service: 03/27/18 Chief Complaint: Left lower extremity ulcers. Bilateral lower extremity swelling. History of Wound: Ms. oJvel 20-year-old who presents to the wound center due to nonhealing left lower extremity wounds/ulcers. Exact etiology is unknown however patient believes it started in early December. She has had no significant wound care but has covered the wound surfaces with Band-Aids. She has noted increased drainage from the wound of clear substance. She was recently seen by primary care physician and started on Augmentin. She has had no cultures done. She feels well otherwise and denies chills, fever, nausea, vomiting or any change in her bowel habit. She is not very compliant with her diabetic care. She is being seen for Dr. De Santiago in her absence for follow up treatment today. She has been tolerating 3M dressings and promogran. Is tolerating Clindamycin as well. Has a few doses left. Has missed some doses. Denies increased drainage , pain or fever or chills. Progress of Wound: Improving. - Physical Exam Vital Signs Temp Pulse Resp BP 96.4 F L 71 16 113/57 L 03/27/18 11:23 03/27/18 11:23 03/27/18 11:23 03/27/18 11:23 General: Alert, Oriented x3, Cooperative, No apparent distress HEENT: Atraumatic Oral: Moist Mucosa Neck: Supple Lungs: Normal air movement Abdomen: Non Tender Extremities: No cyanosis, Edema Skin: Ulcer/ Wound Wound Measurements and Assessment WC - Nurse 1 - General Ulcer Measurement Start: 03/20/18 09:50 Freq: Status: Active Protocol: Activity Type Activity Date Activity User E-Sign Co-Sign Detail Recorded Client Recorded Date Recorded By Document 03/27/18 11:23 TN [id number] 03/27/18 11:39 TN 03/27/18 11:23 Wound Center Nurse 1 [Ulcer Assessment] #3 RT LAT LE -Combined with other wound No -Current Size (cm) - Length 0.1 -Current Size (cm) - Width 0.1 -Current Size (cm) - Depth 0.1 -Total Square Cm 0.01 -Photo Taken No -Epithelialization None Present -Tunneling No -Undermining/Tunneling No -Circular Undermining No -Classification - Thickness Full Thickness without Exposed Support Structure -Change in Wound Grade/Stage No Query Text:If change please identify the Stage/Grade in the comment (ie. S2 G3) -Exudate Amt Small (1-33%) -Exudate Type Serous -Wound Margin Distinct, Outline Attached -Granulation Amt Small (1-33%) -Granulation Quality [place] -Slough/Fibrin Yes -Necrosis Amt Large (67-100%) -Necrotic Tissue Type Adherent Slough -Structure Exposed None/Limited to Skin Breakdown -Texture (Jessie-wound Skin Appearance) Assessed Scarring -Moisture (Jessie-wound Skin Appearance Assessed ) Dry/Scaly -Color (Jessie-wound Skin Appearance) No Abnormality Assessed -Temperature (Jessie-wound Skin No Abnormality Appearance) (Pt Warm) -Tenderness on Palpation (Jessie-wound No Skin Appearance) -Ulcer Cleansing Wound Cleanser -Foul Odor after Cleansing No -Anesthetic Used 5% Lidocaine Gel #1 LEFT AMOS -Combined with other wound No -Current Size (cm) - Length 1.9 -Current Size (cm) - Width 0.9 -Current Size (cm) - Depth 0.1 -Total Square Cm 1.71 -Photo Taken No -Epithelialization None Present -Tunneling No -Undermining/Tunneling No -Circular Undermining No -Classification - Thickness Full Thickness without Exposed Support Structure -Exudate Amt Medium (34-66%) -Exudate Type Serosanguineous -Wound Margin Indistinct, Non -Visible -Granulation Amt Small (1-33%) -Granulation Quality [place] -Slough/Fibrin Yes -Necrosis Amt Large (67-100%) -Necrotic Tissue Type Adherent Slough -Structure Exposed None/Limited to Skin Breakdown -Texture (Jessie-wound Skin Appearance) Assessed Scarring -Moisture (Jessie-wound Skin Appearance Assessed ) Dry/Scaly -Color (Jessie-wound Skin Appearance) Assessed Erythema -Temperature (Jessie-wound Skin No Abnormality Appearance) (Pt Warm) -Tenderness on Palpation (Jessie-wound No Skin Appearance) -Ulcer Cleansing Wound Cleanser -Foul Odor after Cleansing No -Anesthetic Used 5% Lidocaine Gel [Edema Assessment] -Lower Limb Edema Present No -Right Calf (cm) 31.4 -Right Ankle (cm) 22.8 -Left Calf (cm) 31.9 -Left Ankle (cm) 22.8 WC - Nurse 2 - General Ulcer CM Notes Start: 03/20/18 09:50 Freq: Status: Active Protocol: Activity Type Activity Date Activity User E-Sign Co-Sign Detail Recorded Client Recorded Date Recorded By Document 03/27/18 12:06 VALDEMAR [id number] 03/27/18 12:07 VALDEMAR 03/27/18 12:06 Wound Center Nurse 2 [Procedure/Treatment] #3 RT LAT LE -Time 12:06 -Correct Patient Yes -Correct Side, Site, Position Yes -Correct Procedure Yes -Procedure Performed No -Post Debridement Size (cm) - Length 0 -Post Debridement Size (cm) - Width 0 -Post Debridement Size (cm) - Depth 0 -Total Square Cm 0 -Wound/Ulcer Outcome Healed- Epithelialized -Ulcer Cleansing Not Cleansed -Foul Odor after Cleansing No -Bioengineered Tissue No -Bleeding Controlled with NA -Treatment Response Procedure Tolerated Well #1 LEFT AMOS -Time 12:07 -Correct Patient Yes -Correct Side, Site, Position Yes -Correct Procedure Yes -Procedure Performed Yes -Type of Procedure Debridement -Clinical Debridement Subcutaneous -Post Debridement Size (cm) - Length 1.2 -Post Debridement Size (cm) - Width 0.6 -Post Debridement Size (cm) - Depth 0.1 -Total Square Cm 0.72 -Wound/Ulcer Outcome Not Healed -Ulcer Cleansing Rinsed/ Irrigated with Saline -Foul Odor after Cleansing No -Bioengineered Tissue No -Bleeding Controlled with NA -Treatment Response Procedure Tolerated Well [See Physician Procedure note for Specifics] Pain Scale: 0-10 Numeric [Pain] -Is Patient Pain Free? Yes Musculoskeletal: No Muscle Wasting Neurological: Cranial nerves II-XII grossly intact Psych/Mental Status: Normal Affect Debridement Note Post-Debridement Measurements/Treatment WC - Nurse 2 - General Ulcer CM Notes Start: 03/20/18 09:50 Freq: Status: Active Protocol: Activity Type Activity Date Activity User E-Sign Co-Sign Detail Recorded Client Recorded Date Recorded By Document 03/20/18 10:52 MW [id number] 03/20/18 10:54 MW Document 03/27/18 12:06 JS [id number] 03/27/18 12:07 JS 03/20/18 03/27/18 10:52 12:06 Wound Center Nurse 2 #3 RT LAT LE -Time 10:52 12:06 -Correct Patient Yes Yes -Correct Side, Site, Position Yes Yes -Correct Procedure Yes Yes -Procedure Performed Yes No -Type of Procedure Debridement -Clinical Debridement Subcutaneous -Post Debridement Size (cm) - Length 0.3 0 -Post Debridement Size (cm) - Width 0.4 0 -Post Debridement Size (cm) - Depth 0.1 0 -Total Square Cm 0.12 0 -Wound/Ulcer Outcome Not Healed Healed- Epithelialized -Ulcer Cleansing Rinsed/ Not Cleansed Irrigated with Saline -Foul Odor after Cleansing No No -Bioengineered Tissue No No -Bleeding Controlled with Pressure NA -Treatment Response Procedure Procedure Tolerated Well Tolerated Well #2 MEDIAL LLE CLUSTER -Time 10:52 -Post Debridement Size (cm) - Length 0 -Post Debridement Size (cm) - Width 0 -Post Debridement Size (cm) - Depth 0 -Total Square Cm 0 -Wound/Ulcer Outcome Not Healed -Ulcer Cleansing Rinsed/ Irrigated with Saline -Foul Odor after Cleansing No -Bioengineered Tissue No -Bleeding Controlled with Pressure -Treatment Response Procedure Tolerated Well #1 LEFT AMOS -Time 10:53 12:07 -Correct Patient Yes Yes -Correct Side, Site, Position Yes Yes -Correct Procedure Yes Yes -Procedure Performed Yes Yes -Type of Procedure Debridement Debridement -Clinical Debridement Subcutaneous Subcutaneous -Post Debridement Size (cm) - Length 1.9 1.2 -Post Debridement Size (cm) - Width 0.8 0.6 -Post Debridement Size (cm) - Depth 0.1 0.1 -Total Square Cm 1.52 0.72 -Wound/Ulcer Outcome Not Healed Not Healed -Ulcer Cleansing Rinsed/ Rinsed/ Irrigated with Irrigated with Saline Saline -Foul Odor after Cleansing No No -Bioengineered Tissue No No -Bleeding Controlled with Pressure NA -Treatment Response Procedure Procedure Tolerated Well Tolerated Well Pain Scale: 0-10 Numeric Is Patient Pain Free? Yes Yes Wound debrided: Left Amos Wound Grade/Stage: Grade II Type of Debridement: Excisional debridement Anesthesia Used: 4% Lidocaine Solution Depth: Down to and including healthy tissue, in the subcutaneous layer Percentage of wound debrided: 100 Instrument Used: 5mm curette Tissue Removed: Slough and devitalized tissue Severity: Fat Layer Exposed Amount of bleeding with debridement: Mild Bleeding Controlled with: Pressure Patient tolerated procedure well Assessment/Plan Active Problems (Last Reviewed 10/01/17 @ 09:34 by Sandy Valdez) Ulcer of left lower extremity with fat layer exposed (Chronic) Venous insufficiency of both lower extremities (Chronic) Ulcer of right lower extremity with fat layer exposed (Chronic) Venous ulcers of both lower extremities (Chronic) Type 2 diabetes mellitus (Chronic) Assessment: Left lower extremity ulcer most likely secondary to venous insufficiency. Diabetes mellitus type 2, poorly controlled. Bilateral lower extremity venous insufficiency. Plan: Right lower extremity ulcer has healed. Debridement done as documented above. Procedure was well-tolerated. Continue Promogran to all left amos with light 3M wraps. Continued increased protein intake/supplements recommended. Elevate lower extremity when seated and in bed. Continue Follow-up with PCP for optimal blood sugar management. F/U visit in 1 week. Advised to call with any questions or concerns. This note was generated with [employer] dictation software. It may contain incorrect words, spelling, and punctuation that were not noted in checking the note before signing.
[2018-03-28 10:55] VITALS: BP 131/79; PULSE 73; RESP 18; TEMP 36
[2018-04-03 09:27] VITALS: BP 139/68; PULSE 71; RESP 18; TEMP 36.6
--- NOTE | 2018-04-03 09:42 | WC ---
pt has small abrasion on LLE upper medial calf . pt states from 3M previously rubbing from last visit pt noted.
--- NOTE | 2018-04-03 10:00 | PCM.WC.PN ---
(1) Type 2 diabetes mellitus Status: Chronic Current Visit: Yes Qualifiers: Code(s): E11.9 - Type 2 diabetes mellitus without complications (2) Ulcer of left lower extremity with fat layer exposed Status: Chronic Current Visit: Yes Code(s): L97.922 - Non-pressure chronic ulcer of unspecified part of left lower leg with fat layer exposed (3) Ulcer of right lower extremity with fat layer exposed Status: Chronic Current Visit: Yes Code(s): L97.912 - Non-pressure chronic ulcer of unspecified part of right lower leg with fat layer exposed (4) Venous insufficiency of both lower extremities Status: Chronic Current Visit: Yes Code(s): I87.2 - Venous insufficiency (chronic) (peripheral) (5) Venous ulcers of both lower extremities Status: Chronic Current Visit: Yes Code(s): I87.2 - Venous insufficiency (chronic) (peripheral); L97.919 - Non-pressure chronic ulcer of unspecified part of right lower leg with unspecified severity; L97.929 - Non-pressure chronic ulcer of unspecified part of left lower leg with unspecified severity Type of Wound Date of Service: 04/03/18 Chief Complaint: Left lower extremity ulcers. Bilateral lower extremity swelling. History of Wound: Ms. Jovel 20-year-old who presents to the wound center due to nonhealing left lower extremity wounds/ulcers. Exact etiology is unknown however patient believes it started in early December. She has had no significant wound care but has covered the wound surfaces with Band-Aids. She has noted increased drainage from the wound of clear substance. She was recently seen by primary care physician and started on Augmentin. She has had no cultures done. She feels well otherwise and denies chills, fever, nausea, vomiting or any change in her bowel habit. She is not very compliant with her diabetic care. She is being seen for Dr. De Santiago in her absence for follow up treatment today. She has been tolerating 3M dressings and promogran. Is tolerating Clindamycin as well. Has a few doses left. Has missed some doses. Denies increased drainage, pain or fever or chills. Progress of Wound: Improving. - Physical Exam Vital Signs Temp Pulse Resp BP 98 F 71 18 139/68 H 04/03/18 09:27 04/03/18 09:27 04/03/18 09:27 04/03/18 09:27 General: Alert, Oriented x3, Cooperative, No apparent distress HEENT: Atraumatic Oral: Moist Mucosa Neck: Supple Lungs: Normal air movement Abdomen: Obese Extremities: No cyanosis, Edema Skin: Ulcer/ Wound Wound Measurements and Assessment WC - Nurse 1 - General Ulcer Measurement Start: 03/20/18 09:50 Freq: Status: Active Protocol: Activity Type Activity Date Activity User E-Sign Co-Sign Detail Recorded Client Recorded Date Recorded By Document 04/03/18 09:27 RB [id number] 04/03/18 09:42 RB 04/03/18 09:27 Wound Center Nurse 1 [Ulcer Assessment] #1 LEFT AMOS -Combined with other wound No -Current Size (cm) - Length 1.4 -Current Size (cm) - Width 0.3 -Current Size (cm) - Depth 0.1 -Total Square Cm 0.42 -Photo Taken No -Tunneling No -Undermining/Tunneling No -Circular Undermining No -Classification - Thickness Full Thickness without Exposed Support Structure -Exudate Amt Small (1-33%) -Exudate Type Serosanguineous -Wound Margin Distinct, Outline Attached -Granulation Amt Medium (34-66%) -Granulation Quality [place] -Slough/Fibrin Yes -Necrosis Amt Small (1-33%) -Necrotic Tissue Type Adherent Slough -Structure Exposed N/A -Texture (Jessie-wound Skin Appearance) Assessed -Moisture (Jessie-wound Skin Appearance Assessed ) Dry/Scaly -Color (Jessie-wound Skin Appearance) Assessed -Temperature (Jessie-wound Skin No Abnormality Appearance) (Pt Warm) -Tenderness on Palpation (Jessie-wound No Skin Appearance) -Ulcer Cleansing Wound Cleanser -Foul Odor after Cleansing No -Anesthetic Used 4% Lidocaine Solution [Edema Assessment] -Lower Limb Edema Present Yes -Right Calf (cm) 33 -Right Ankle (cm) 22.5 -Left Calf (cm) 33 -Left Ankle (cm) 22.5 Musculoskeletal: No Muscle Wasting Neurological: Cranial nerves II-XII grossly intact Psych/Mental Status: Normal Affect Debridement Note Post-Debridement Measurements/Treatment WC - Nurse 2 - General Ulcer CM Notes Start: 03/20/18 09:50 Freq: Status: Active Protocol: Activity Type Activity Date Activity User E-Sign Co-Sign Detail Recorded Client Recorded Date Recorded By Document 03/20/18 10:52 MW [id number] 03/20/18 10:54 MW Document 03/27/18 12:06 VALDEMAR [id number] 03/27/18 12:07 VALDEMAR 03/20/18 03/27/18 10:52 12:06 Wound Center Nurse 2 #3 RT LAT LE -Time 10:52 12:06 -Correct Patient Yes Yes -Correct Side, Site, Position Yes Yes -Correct Procedure Yes Yes -Procedure Performed Yes No -Type of Procedure Debridement -Clinical Debridement Subcutaneous -Post Debridement Size (cm) - Length 0.3 0 -Post Debridement Size (cm) - Width 0.4 0 -Post Debridement Size (cm) - Depth 0.1 0 -Total Square Cm 0.12 0 -Wound/Ulcer Outcome Not Healed Healed- Epithelialized -Ulcer Cleansing Rinsed/ Not Cleansed Irrigated with Saline -Foul Odor after Cleansing No No -Bioengineered Tissue No No -Bleeding Controlled with Pressure NA -Treatment Response Procedure Procedure Tolerated Well Tolerated Well #2 MEDIAL LLE CLUSTER -Time 10:52 -Post Debridement Size (cm) - Length 0 -Post Debridement Size (cm) - Width 0 -Post Debridement Size (cm) - Depth 0 -Total Square Cm 0 -Wound/Ulcer Outcome Not Healed -Ulcer Cleansing Rinsed/ Irrigated with Saline -Foul Odor after Cleansing No -Bioengineered Tissue No -Bleeding Controlled with Pressure -Treatment Response Procedure Tolerated Well #1 LEFT AMOS -Time 10:53 12:07 -Correct Patient Yes Yes -Correct Side, Site, Position Yes Yes -Correct Procedure Yes Yes -Procedure Performed Yes Yes -Type of Procedure Debridement Debridement -Clinical Debridement Subcutaneous Subcutaneous -Post Debridement Size (cm) - Length 1.9 1.2 -Post Debridement Size (cm) - Width 0.8 0.6 -Post Debridement Size (cm) - Depth 0.1 0.1 -Total Square Cm 1.52 0.72 -Wound/Ulcer Outcome Not Healed Not Healed -Ulcer Cleansing Rinsed/ Rinsed/ Irrigated with Irrigated with Saline Saline -Foul Odor after Cleansing No No -Bioengineered Tissue No No -Bleeding Controlled with Pressure NA -Treatment Response Procedure Procedure Tolerated Well Tolerated Well Pain Scale: 0-10 Numeric Is Patient Pain Free? Yes Yes Wound debrided: Left Amos Wound Grade/Stage: Grade II Type of Debridement: Excisional debridement Anesthesia Used: 4% Lidocaine Solution Depth: Down to and including healthy tissue, in the subcutaneous layer Percentage of wound debrided: 100 Instrument Used: 3mm curette Tissue Removed: Slough and devitalized tissue Severity: Fat Layer Exposed Amount of bleeding with debridement: Mild Bleeding Controlled with: Pressure Patient tolerated procedure well - Additional Wound Wound debrided: Left Medial Calf Wound Grade/Stage: Leigh I Type of Debridement: Excisional debridement Anesthesia Used: 4% Lidocaine Solution Depth: Down to and including healthy tissue, in the subcutaneous layer Percentage of wound debrided: 100 Instrument Used: 3mm curette Tissue Removed: Slough and devitalized tissue Severity: Fat Layer Exposed Amount of bleeding with debridement: Mild Bleeding Controlled with: Pressure Patient tolerated procedure: Patient tolerated procedure well Assessment/Plan Active Problems (Last Reviewed 10/01/17 @ 09:34 by Sandy Valdez) Ulcer of left lower extremity with fat layer exposed (Chronic) Venous insufficiency of both lower extremities (Chronic) Ulcer of right lower extremity with fat layer exposed (Chronic) Venous ulcers of both lower extremities (Chronic) Type 2 diabetes mellitus (Chronic) Assessment: Left lower extremity ulcer most likely secondary to venous insufficiency. Diabetes mellitus type 2, poorly controlled. Bilateral lower extremity venous insufficiency. Plan: Right lower extremity ulcer has healed. Debridement done as documented above. Procedure was well-tolerated. Continue Promogran with adaptic over top to both left LE ulcers with light 3M wraps. Continued increased protein intake/supplements recommended. Elevate lower extremity when seated and in bed. Continue Follow-up with PCP for optimal blood sugar management. F/U visit in 1 week. Advised to call with any questions or concerns. This note was generated with [employer] dictation software. It may contain incorrect words, spelling, and punctuation that were not noted in checking the note before signing.
--- NOTE | 2018-04-03 10:04 | PN.PCM_ITS ---
(1) Type 2 diabetes mellitus Status: Chronic Current Visit: Yes Qualifiers: Code(s): E11.9 - Type 2 diabetes mellitus without complications (2) Ulcer of left lower extremity with fat layer exposed Status: Chronic Current Visit: Yes Code(s): L97.922 - Non-pressure chronic ulcer of unspecified part of left lower leg with fat layer exposed (3) Ulcer of right lower extremity with fat layer exposed Status: Chronic Current Visit: Yes Code(s): L97.912 - Non-pressure chronic ulcer of unspecified part of right lower leg with fat layer exposed (4) Venous insufficiency of both lower extremities Status: Chronic Current Visit: Yes Code(s): I87.2 - Venous insufficiency ( chronic) (peripheral) (5) Venous ulcers of both lower extremities Status: Chronic Current Visit: Yes Code(s): I87.2 - Venous insufficiency ( chronic) (peripheral); L97.919 - Non-pressure chronic ulcer of unspecified part of right lower leg with unspecified severity; L97.929 - Non-pressure chronic ulcer of unspecified part of left lower leg with unspecified severity Type of Wound Date of Service: 04/03/18 Chief Complaint: Left lower extremity ulcers. Bilateral lower extremity swelling. History of Wound: Ms. Jovel 20-year-old who presents to the wound center due to nonhealing left lower extremity wounds/ulcers. Exact etiology is unknown however patient believes it started in early December. She has had no significant wound care but has covered the wound surfaces with Band-Aids. She has noted increased drainage from the wound of clear substance. She was recently seen by primary care physician and started on Augmentin. She has had no cultures done. She feels well otherwise and denies chills, fever, nausea, vomiting or any change in her bowel habit. She is not very compliant with her diabetic care. She is being seen for Dr. De Santiago in her absence for follow up treatment today. She has been tolerating 3M dressings and promogran. Is tolerating Clindamycin as well. Has a few doses left. Has missed some doses. Denies increased drainage , pain or fever or chills. Progress of Wound: Improving. - Physical Exam Vital Signs Temp Pulse Resp BP 98 F 71 18 139/68 H 04/03/18 09:27 04/03/18 09:27 04/03/18 09:27 04/03/18 09:27 General: Alert, Oriented x3, Cooperative, No apparent distress HEENT: Atraumatic Oral: Moist Mucosa Neck: Supple Lungs: Normal air movement Abdomen: Obese Extremities: No cyanosis, Edema Skin: Ulcer/ Wound Wound Measurements and Assessment WC - Nurse 1 - General Ulcer Measurement Start: 03/20/18 09:50 Freq: Status: Active Protocol: Activity Type Activity Date Activity User E-Sign Co-Sign Detail Recorded Client Recorded Date Recorded By Document 04/03/18 09:27 RB [id number] 04/03/18 09:42 RB 04/03/18 09:27 Wound Center Nurse 1 [Ulcer Assessment] #1 LEFT AMOS -Combined with other wound No -Current Size (cm) - Length 1.4 -Current Size (cm) - Width 0.3 -Current Size (cm) - Depth 0.1 -Total Square Cm 0.42 -Photo Taken No -Tunneling No -Undermining/Tunneling No -Circular Undermining No -Classification - Thickness Full Thickness without Exposed Support Structure -Exudate Amt Small (1-33%) -Exudate Type Serosanguineous -Wound Margin Distinct, Outline Attached -Granulation Amt Medium (34-66%) -Granulation Quality [place] -Slough/Fibrin Yes -Necrosis Amt Small (1-33%) -Necrotic Tissue Type Adherent Slough -Structure Exposed N/A -Texture (Jessie-wound Skin Appearance) Assessed -Moisture (Jessie-wound Skin Appearance Assessed ) Dry/Scaly -Color (Jessie-wound Skin Appearance) Assessed -Temperature (Jessie-wound Skin No Abnormality Appearance) (Pt Warm) -Tenderness on Palpation (Jessie-wound No Skin Appearance) -Ulcer Cleansing Wound Cleanser -Foul Odor after Cleansing No -Anesthetic Used 4% Lidocaine Solution [Edema Assessment] -Lower Limb Edema Present Yes -Right Calf (cm) 33 -Right Ankle (cm) 22.5 -Left Calf (cm) 33 -Left Ankle (cm) 22.5 Musculoskeletal: No Muscle Wasting Neurological: Cranial nerves II-XII grossly intact Psych/Mental Status: Normal Affect Debridement Note Post-Debridement Measurements/Treatment WC - Nurse 2 - General Ulcer CM Notes Start: 03/20/18 09:50 Freq: Status: Active Protocol: Activity Type Activity Date Activity User E-Sign Co-Sign Detail Recorded Client Recorded Date Recorded By Document 03/20/18 10:52 MW [id number] 03/20/18 10:54 MW Document 03/27/18 12:06 VALDEMAR [id number] 03/27/18 12:07 VALDEMAR 03/20/18 03/27/18 10:52 12:06 Wound Center Nurse 2 #3 RT LAT LE -Time 10:52 12:06 -Correct Patient Yes Yes -Correct Side, Site, Position Yes Yes -Correct Procedure Yes Yes -Procedure Performed Yes No -Type of Procedure Debridement -Clinical Debridement Subcutaneous -Post Debridement Size (cm) - Length 0.3 0 -Post Debridement Size (cm) - Width 0.4 0 -Post Debridement Size (cm) - Depth 0.1 0 -Total Square Cm 0.12 0 -Wound/Ulcer Outcome Not Healed Healed- Epithelialized -Ulcer Cleansing Rinsed/ Not Cleansed Irrigated with Saline -Foul Odor after Cleansing No No -Bioengineered Tissue No No -Bleeding Controlled with Pressure NA -Treatment Response Procedure Procedure Tolerated Well Tolerated Well #2 MEDIAL LLE CLUSTER -Time 10:52 -Post Debridement Size (cm) - Length 0 -Post Debridement Size (cm) - Width 0 -Post Debridement Size (cm) - Depth 0 -Total Square Cm 0 -Wound/Ulcer Outcome Not Healed -Ulcer Cleansing Rinsed/ Irrigated with Saline -Foul Odor after Cleansing No -Bioengineered Tissue No -Bleeding Controlled with Pressure -Treatment Response Procedure Tolerated Well #1 LEFT AMOS -Time 10:53 12:07 -Correct Patient Yes Yes -Correct Side, Site, Position Yes Yes -Correct Procedure Yes Yes -Procedure Performed Yes Yes -Type of Procedure Debridement Debridement -Clinical Debridement Subcutaneous Subcutaneous -Post Debridement Size (cm) - Length 1.9 1.2 -Post Debridement Size (cm) - Width 0.8 0.6 -Post Debridement Size (cm) - Depth 0.1 0.1 -Total Square Cm 1.52 0.72 -Wound/Ulcer Outcome Not Healed Not Healed -Ulcer Cleansing Rinsed/ Rinsed/ Irrigated with Irrigated with Saline Saline -Foul Odor after Cleansing No No -Bioengineered Tissue No No -Bleeding Controlled with Pressure NA -Treatment Response Procedure Procedure Tolerated Well Tolerated Well Pain Scale: 0-10 Numeric Is Patient Pain Free? Yes Yes Wound debrided: Left Amos Wound Grade/Stage: Grade II Type of Debridement: Excisional debridement Anesthesia Used: 4% Lidocaine Solution Depth: Down to and including healthy tissue, in the subcutaneous layer Percentage of wound debrided: 100 Instrument Used: 3mm curette Tissue Removed: Slough and devitalized tissue Severity: Fat Layer Exposed Amount of bleeding with debridement: Mild Bleeding Controlled with: Pressure Patient tolerated procedure well - Additional Wound Wound debrided: Left Medial Calf Wound Grade/Stage: Leigh I Type of Debridement: Excisional debridement Anesthesia Used: 4% Lidocaine Solution Depth: Down to and including healthy tissue, in the subcutaneous layer Percentage of wound debrided: 100 Instrument Used: 3mm curette Tissue Removed: Slough and devitalized tissue Severity: Fat Layer Exposed Amount of bleeding with debridement: Mild Bleeding Controlled with: Pressure Patient tolerated procedure: Patient tolerated procedure well Assessment/Plan Active Problems (Last Reviewed 10/01/17 @ 09:34 by Sandy Valdez) Ulcer of left lower extremity with fat layer exposed (Chronic) Venous insufficiency of both lower extremities (Chronic) Ulcer of right lower extremity with fat layer exposed (Chronic) Venous ulcers of both lower extremities (Chronic) Type 2 diabetes mellitus (Chronic) Assessment: Left lower extremity ulcer most likely secondary to venous insufficiency. Diabetes mellitus type 2, poorly controlled. Bilateral lower extremity venous insufficiency. Plan: Right lower extremity ulcer has healed. Debridement done as documented above. Procedure was well-tolerated. Continue Promogran with adaptic over top to both left LE ulcers with light 3M wraps. Continued increased protein intake /supplements recommended. Elevate lower extremity when seated and in bed. Continue Follow-up with PCP for optimal blood sugar management. F/U visit in 1 week. Advised to call with any questions or concerns. This note was generated with [employer] dictation software. It may contain incorrect words, spelling, and punctuation that were not noted in checking the note before signing.
[2018-04-10 10:38] VITALS: BP 148/60; PULSE 73; RESP 16; TEMP 37.2
--- NOTE | 2018-04-10 10:58 | PCM.WC.PN ---
(1) Type 2 diabetes mellitus Status: Chronic Current Visit: Yes Qualifiers: Code(s): E11.9 - Type 2 diabetes mellitus without complications (2) Ulcer of left lower extremity with fat layer exposed Status: Chronic Current Visit: Yes Code(s): L97.922 - Non-pressure chronic ulcer of unspecified part of left lower leg with fat layer exposed (3) Ulcer of right lower extremity with fat layer exposed Status: Chronic Current Visit: Yes Code(s): L97.912 - Non-pressure chronic ulcer of unspecified part of right lower leg with fat layer exposed (4) Venous insufficiency of both lower extremities Status: Chronic Current Visit: Yes Code(s): I87.2 - Venous insufficiency (chronic) (peripheral) (5) Venous ulcers of both lower extremities Status: Chronic Current Visit: Yes Code(s): I87.2 - Venous insufficiency (chronic) (peripheral); L97.919 - Non-pressure chronic ulcer of unspecified part of right lower leg with unspecified severity; L97.929 - Non-pressure chronic ulcer of unspecified part of left lower leg with unspecified severity Type of Wound Date of Service: 04/10/18 Chief Complaint: Left lower extremity ulcers. Bilateral lower extremity swelling. History of Wound: Ms. Jovel 20-year-old who presents to the wound center due to nonhealing left lower extremity wounds/ulcers. Exact etiology is unknown however patient believes it started in early December. She has had no significant wound care but has covered the wound surfaces with Band-Aids. She has noted increased drainage from the wound of clear substance. She was recently seen by primary care physician and started on Augmentin. She has had no cultures done. She feels well otherwise and denies chills, fever, nausea, vomiting or any change in her bowel habit. She is not very compliant with her diabetic care. She is being seen for Dr. De Santiago in her absence for follow up treatment today. She has been tolerating 3M dressings and promogran. Is tolerating Clindamycin as well. Has a few doses left. Has missed some doses. Denies increased drainage, pain or fever or chills. Progress of Wound: Improving. - Physical Exam Vital Signs Temp Pulse Resp BP 98.9 F 73 16 148/60 H 04/10/18 10:38 04/10/18 10:38 04/10/18 10:38 04/10/18 10:38 General: Alert, Oriented x3, Cooperative, No apparent distress HEENT: Atraumatic Oral: Moist Mucosa Neck: Supple Lungs: Normal air movement Abdomen: Non Tender Extremities: No cyanosis Skin: Ulcer/ Wound Wound Measurements and Assessment WC - Nurse 1 - General Ulcer Measurement Start: 03/20/18 09:50 Freq: Status: Active Protocol: Activity Type Activity Date Activity User E-Sign Co-Sign Detail Recorded Client Recorded Date Recorded By Document 04/10/18 10:38 [id number] 04/10/18 10:44 04/10/18 10:38 Wound Center Nurse 1 [Ulcer Assessment] #5 LEFT MEDIAL. CALF -Combined with other wound No -Current Size (cm) - Length 0.4 -Current Size (cm) - Width 0.3 -Current Size (cm) - Depth 0.1 -Total Square Cm 0.12 -Photo Taken No -Epithelialization Small 1-33% -Tunneling No -Undermining/Tunneling No -Circular Undermining No -Exudate Amt Small (1-33%) -Exudate Type Serosanguineous -Wound Margin Distinct, Outline Attached -Granulation Amt Small (1-33%) -Granulation Quality Pale -Slough/Fibrin Yes -Necrosis Amt None Present (0 %) -Necrotic Tissue Type Adherent Slough -Structure Exposed None/Limited to Skin Breakdown -Texture (Jessie-wound Skin Appearance) No Abnormality Assessed -Moisture (Jessie-wound Skin Appearance No Abnormality ) Assessed -Color (Jessie-wound Skin Appearance) No Abnormality Assessed -Temperature (Jessie-wound Skin No Abnormality Appearance) (Pt Warm) -Tenderness on Palpation (Jessie-wound No Skin Appearance) -Ulcer Cleansing Wound Cleanser -Foul Odor after Cleansing No -Anesthetic Used 4% Lidocaine Solution #1 LEFT AMOS -Combined with other wound No -Current Size (cm) - Length 1 -Current Size (cm) - Width 0.4 -Current Size (cm) - Depth 0.1 -Total Square Cm 0.4 -Photo Taken No -Epithelialization Medium 34-66% -Tunneling No -Undermining/Tunneling No -Circular Undermining No -Exudate Amt None Present (0 %) -Temperature (Jessie-wound Skin No Abnormality Appearance) (Pt Warm) -Tenderness on Palpation (Jessie-wound No Skin Appearance) -Ulcer Cleansing Wound Cleanser -Foul Odor after Cleansing No -Anesthetic Used 4% Lidocaine Solution [Edema Assessment] -Lower Limb Edema Present No -Right Calf (cm) 31 -Right Ankle (cm) 24.5 -Left Calf (cm) 30 -Left Ankle (cm) 23.5 WC - Nurse 2 - General Ulcer CM Notes Start: 03/20/18 09:50 Freq: Status: Active Protocol: Activity Type Activity Date Activity User E-Sign Co-Sign Detail Recorded Client Recorded Date Recorded By Document 04/10/18 10:51 MW [id number] 04/10/18 10:56 MW 04/10/18 10:51 Wound Center Nurse 2 [Procedure/Treatment] #5 LEFT MEDIAL. CALF -Time 10:51 -Correct Patient Yes -Correct Side, Site, Position Yes -Correct Procedure Yes -Procedure Performed Yes -Type of Procedure Debridement -Clinical Debridement Subcutaneous -Post Debridement Size (cm) - Length 0.3 -Post Debridement Size (cm) - Width 0.3 -Post Debridement Size (cm) - Depth 0.1 -Total Square Cm 0.09 -Wound/Ulcer Outcome Not Healed -Ulcer Cleansing Rinsed/ Irrigated with Saline -Foul Odor after Cleansing No -Bioengineered Tissue No -Bleeding Controlled with Pressure -Treatment Response Procedure Tolerated Well #1 LEFT AMOS -Time 10:51 -Correct Patient Yes -Correct Side, Site, Position Yes -Correct Procedure Yes -Procedure Performed Yes -Type of Procedure Debridement -Clinical Debridement Subcutaneous -Post Debridement Size (cm) - Length 1.0 -Post Debridement Size (cm) - Width 0.3 -Post Debridement Size (cm) - Depth 0.1 -Total Square Cm 0.30 -Wound/Ulcer Outcome Not Healed -Ulcer Cleansing Rinsed/ Irrigated with Saline -Foul Odor after Cleansing No -Bioengineered Tissue No -Bleeding Controlled with Pressure -Treatment Response Procedure Tolerated Well [See Physician Procedure note for Specifics] Pain Scale: 0-10 Numeric [Pain] -Is Patient Pain Free? Yes Musculoskeletal: No Muscle Wasting Neurological: Cranial nerves II-XII grossly intact Psych/Mental Status: Normal Affect Debridement Note Post-Debridement Measurements/Treatment WC - Nurse 2 - General Ulcer CM Notes Start: 03/20/18 09:50 Freq: Status: Active Protocol: Activity Type Activity Date Activity User E-Sign Co-Sign Detail Recorded Client Recorded Date Recorded By Document 03/20/18 10:52 MW [id number] 03/20/18 10:54 MW Document 03/27/18 12:06 JS [id number] 03/27/18 12:07 JS Document 04/03/18 09:55 CS [id number] 04/03/18 10:01 CS Document 04/10/18 10:51 MW [id number] 04/10/18 10:56 MW 03/20/18 03/27/18 04/03/18 10:52 12:06 09:55 Wound Center Nurse 2 #5 LEFT MEDIAL. CALF -Time 09:57 -Correct Patient Yes -Correct Side, Site, Position Yes -Correct Procedure Yes -Procedure Performed Yes -Type of Procedure Debridement -Clinical Debridement Subcutaneous -Post Debridement Size (cm) - Length 0.4 -Post Debridement Size (cm) - Width 0.4 -Post Debridement Size (cm) - Depth 0.1 -Total Square Cm 0.16 -Wound/Ulcer Outcome Not Healed -Ulcer Cleansing -Foul Odor after Cleansing -Bioengineered Tissue -Bleeding Controlled with NA -Treatment Response Procedure Tolerated Well #3 RT LAT LE -Time 10:52 12:06 -Correct Patient Yes Yes -Correct Side, Site, Position Yes Yes -Correct Procedure Yes Yes -Procedure Performed Yes No -Type of Procedure Debridement -Clinical Debridement Subcutaneous -Post Debridement Size (cm) - Length 0.3 0 -Post Debridement Size (cm) - Width 0.4 0 -Post Debridement Size (cm) - Depth 0.1 0 -Total Square Cm 0.12 0 -Wound/Ulcer Outcome Not Healed Healed- Epithelialized -Ulcer Cleansing Rinsed/ Not Cleansed Irrigated with Saline -Foul Odor after Cleansing No No -Bioengineered Tissue No No -Bleeding Controlled with Pressure NA -Treatment Response Procedure Procedure Tolerated Well Tolerated Well #2 MEDIAL LLE CLUSTER -Time 10:52 -Post Debridement Size (cm) - Length 0 -Post Debridement Size (cm) - Width 0 -Post Debridement Size (cm) - Depth 0 -Total Square Cm 0 -Wound/Ulcer Outcome Not Healed -Ulcer Cleansing Rinsed/ Irrigated with Saline -Foul Odor after Cleansing No -Bioengineered Tissue No -Bleeding Controlled with Pressure -Treatment Response Procedure Tolerated Well #1 LEFT AMOS -Time 10:53 12:07 09:58 -Correct Patient Yes Yes Yes -Correct Side, Site, Position Yes Yes Yes -Correct Procedure Yes Yes Yes -Procedure Performed Yes Yes Yes -Type of Procedure Debridement Debridement Debridement -Clinical Debridement Subcutaneous Subcutaneous Subcutaneous -Post Debridement Size (cm) - Length 1.9 1.2 0.9 -Post Debridement Size (cm) - Width 0.8 0.6 0.2 -Post Debridement Size (cm) - Depth 0.1 0.1 0.1 -Total Square Cm 1.52 0.72 0.18 -Wound/Ulcer Outcome Not Healed Not Healed Not Healed -Ulcer Cleansing Rinsed/ Rinsed/ Not Cleansed Irrigated with Irrigated with Saline Saline -Foul Odor after Cleansing No No -Bioengineered Tissue No No -Bleeding Controlled with Pressure NA -Treatment Response Procedure Procedure Tolerated Well Tolerated Well Pain Scale: 0-10 Numeric Is Patient Pain Free? Yes Yes Yes 04/10/18 10:51 Wound Center Nurse 2 #5 LEFT MEDIAL. CALF -Time 10:51 -Correct Patient Yes -Correct Side, Site, Position Yes -Correct Procedure Yes -Procedure Performed Yes -Type of Procedure Debridement -Clinical Debridement Subcutaneous -Post Debridement Size (cm) - Length 0.3 -Post Debridement Size (cm) - Width 0.3 -Post Debridement Size (cm) - Depth 0.1 -Total Square Cm 0.09 -Wound/Ulcer Outcome Not Healed -Ulcer Cleansing Rinsed/ Irrigated with Saline -Foul Odor after Cleansing No -Bioengineered Tissue No -Bleeding Controlled with Pressure -Treatment Response Procedure Tolerated Well #3 RT LAT LE -Time -Correct Patient -Correct Side, Site, Position -Correct Procedure -Procedure Performed -Type of Procedure -Clinical Debridement -Post Debridement Size (cm) - Length -Post Debridement Size (cm) - Width -Post Debridement Size (cm) - Depth -Total Square Cm -Wound/Ulcer Outcome -Ulcer Cleansing -Foul Odor after Cleansing -Bioengineered Tissue -Bleeding Controlled with -Treatment Response #2 MEDIAL LLE CLUSTER -Time -Post Debridement Size (cm) - Length -Post Debridement Size (cm) - Width -Post Debridement Size (cm) - Depth -Total Square Cm -Wound/Ulcer Outcome -Ulcer Cleansing -Foul Odor after Cleansing -Bioengineered Tissue -Bleeding Controlled with -Treatment Response #1 LEFT AMOS -Time 10:51 -Correct Patient Yes -Correct Side, Site, Position Yes -Correct Procedure Yes -Procedure Performed Yes -Type of Procedure Debridement -Clinical Debridement Subcutaneous -Post Debridement Size (cm) - Length 1.0 -Post Debridement Size (cm) - Width 0.3 -Post Debridement Size (cm) - Depth 0.1 -Total Square Cm 0.30 -Wound/Ulcer Outcome Not Healed -Ulcer Cleansing Rinsed/ Irrigated with Saline -Foul Odor after Cleansing No -Bioengineered Tissue No -Bleeding Controlled with Pressure -Treatment Response Procedure Tolerated Well Pain Scale: 0-10 Numeric Is Patient Pain Free? Yes Wound debrided: Left lower extremity ( Amos ) Wound Grade/Stage: Grade II Type of Debridement: Excisional debridement Anesthesia Used: 4% Lidocaine Solution Depth: Down to and including healthy tissue, in the subcutaneous layer Percentage of wound debrided: 100 Instrument Used: 3mm curette Tissue Removed: Slough and devitalized tissue Severity: Fat Layer Exposed Amount of bleeding with debridement: Mild Bleeding Controlled with: Pressure Patient tolerated procedure well - Additional Wound Wound debrided: Left medial calf Wound Grade/Stage: Grade 1 Type of Debridement: Excisional debridement Anesthesia Used: 4% Lidocaine Solution Depth: Down to and including healthy tissue, in the subcutaneous layer Percentage of wound debrided: 100 Instrument Used: 3mm curette Tissue Removed: Slough and devitalized tissue Severity: Fat Layer Exposed Amount of bleeding with debridement: Mild Bleeding Controlled with: Pressure Patient tolerated procedure: Patient tolerated procedure well Assessment/Plan Active Problems (Last Reviewed 10/01/17 @ 09:34 by Sandy Valdez) Ulcer of left lower extremity with fat layer exposed (Chronic) Venous insufficiency of both lower extremities (Chronic) Ulcer of right lower extremity with fat layer exposed (Chronic) Venous ulcers of both lower extremities (Chronic) Type 2 diabetes mellitus (Chronic) Assessment: Left lower extremity ulcer most likely secondary to venous insufficiency. Diabetes mellitus type 2, poorly controlled. Bilateral lower extremity venous insufficiency. Plan: Improving ulcers. Debridement done as documented above. Procedure was well-tolerated. Continue Promogran with adaptic over top to both left LE ulcers with light 3M wraps. Continued increased protein intake/supplements recommended. Elevate lower extremity when seated and in bed. Continue Follow-up with PCP for optimal blood sugar management. F/U visit in 1 week. Advised to call with any questions or concerns. This note was generated with [employer] dictation software. It may contain incorrect words, spelling, and punctuation that were not noted in checking the note before signing.
--- NOTE | 2018-04-10 11:01 | PN.PCM_ITS ---
(1) Type 2 diabetes mellitus Status: Chronic Current Visit: Yes Qualifiers: Code(s): E11.9 - Type 2 diabetes mellitus without complications (2) Ulcer of left lower extremity with fat layer exposed Status: Chronic Current Visit: Yes Code(s): L97.922 - Non-pressure chronic ulcer of unspecified part of left lower leg with fat layer exposed (3) Ulcer of right lower extremity with fat layer exposed Status: Chronic Current Visit: Yes Code(s): L97.912 - Non-pressure chronic ulcer of unspecified part of right lower leg with fat layer exposed (4) Venous insufficiency of both lower extremities Status: Chronic Current Visit: Yes Code(s): I87.2 - Venous insufficiency ( chronic) (peripheral) (5) Venous ulcers of both lower extremities Status: Chronic Current Visit: Yes Code(s): I87.2 - Venous insufficiency ( chronic) (peripheral); L97.919 - Non-pressure chronic ulcer of unspecified part of right lower leg with unspecified severity; L97.929 - Non-pressure chronic ulcer of unspecified part of left lower leg with unspecified severity Type of Wound Date of Service: 04/10/18 Chief Complaint: Left lower extremity ulcers. Bilateral lower extremity swelling. History of Wound: Ms. Jovel 20-year-old who presents to the wound center due to nonhealing left lower extremity wounds/ulcers. Exact etiology is unknown however patient believes it started in early December. She has had no significant wound care but has covered the wound surfaces with Band-Aids. She has noted increased drainage from the wound of clear substance. She was recently seen by primary care physician and started on Augmentin. She has had no cultures done. She feels well otherwise and denies chills, fever, nausea, vomiting or any change in her bowel habit. She is not very compliant with her diabetic care. She is being seen for Dr. De Santiago in her absence for follow up treatment today. She has been tolerating 3M dressings and promogran. Is tolerating Clindamycin as well. Has a few doses left. Has missed some doses. Denies increased drainage , pain or fever or chills. Progress of Wound: Improving. - Physical Exam Vital Signs Temp Pulse Resp BP 98.9 F 73 16 148/60 H 04/10/18 10:38 04/10/18 10:38 04/10/18 10:38 04/10/18 10:38 General: Alert, Oriented x3, Cooperative, No apparent distress HEENT: Atraumatic Oral: Moist Mucosa Neck: Supple Lungs: Normal air movement Abdomen: Non Tender Extremities: No cyanosis Skin: Ulcer/ Wound Wound Measurements and Assessment WC - Nurse 1 - General Ulcer Measurement Start: 03/20/18 09:50 Freq: Status: Active Protocol: Activity Type Activity Date Activity User E-Sign Co-Sign Detail Recorded Client Recorded Date Recorded By Document 04/10/18 10:38 [id number] 04/10/18 10:44 04/10/18 10:38 Wound Center Nurse 1 [Ulcer Assessment] #5 LEFT MEDIAL. CALF -Combined with other wound No -Current Size (cm) - Length 0.4 -Current Size (cm) - Width 0.3 -Current Size (cm) - Depth 0.1 -Total Square Cm 0.12 -Photo Taken No -Epithelialization Small 1-33% -Tunneling No -Undermining/Tunneling No -Circular Undermining No -Exudate Amt Small (1-33%) -Exudate Type Serosanguineous -Wound Margin Distinct, Outline Attached -Granulation Amt Small (1-33%) -Granulation Quality Pale -Slough/Fibrin Yes -Necrosis Amt None Present (0 %) -Necrotic Tissue Type Adherent Slough -Structure Exposed None/Limited to Skin Breakdown -Texture (Jessie-wound Skin Appearance) No Abnormality Assessed -Moisture (Jessie-wound Skin Appearance No Abnormality ) Assessed -Color (Jessie-wound Skin Appearance) No Abnormality Assessed -Temperature (Jessie-wound Skin No Abnormality Appearance) (Pt Warm) -Tenderness on Palpation (Jessie-wound No Skin Appearance) -Ulcer Cleansing Wound Cleanser -Foul Odor after Cleansing No -Anesthetic Used 4% Lidocaine Solution #1 LEFT AMOS -Combined with other wound No -Current Size (cm) - Length 1 -Current Size (cm) - Width 0.4 -Current Size (cm) - Depth 0.1 -Total Square Cm 0.4 -Photo Taken No -Epithelialization Medium 34-66% -Tunneling No -Undermining/Tunneling No -Circular Undermining No -Exudate Amt None Present (0 %) -Temperature (Jessie-wound Skin No Abnormality Appearance) (Pt Warm) -Tenderness on Palpation (Jessie-wound No Skin Appearance) -Ulcer Cleansing Wound Cleanser -Foul Odor after Cleansing No -Anesthetic Used 4% Lidocaine Solution [Edema Assessment] -Lower Limb Edema Present No -Right Calf (cm) 31 -Right Ankle (cm) 24.5 -Left Calf (cm) 30 -Left Ankle (cm) 23.5 WC - Nurse 2 - General Ulcer CM Notes Start: 03/20/18 09:50 Freq: Status: Active Protocol: Activity Type Activity Date Activity User E-Sign Co-Sign Detail Recorded Client Recorded Date Recorded By Document 04/10/18 10:51 MW [id number] 04/10/18 10:56 MW 04/10/18 10:51 Wound Center Nurse 2 [Procedure/Treatment] #5 LEFT MEDIAL. CALF -Time 10:51 -Correct Patient Yes -Correct Side, Site, Position Yes -Correct Procedure Yes -Procedure Performed Yes -Type of Procedure Debridement -Clinical Debridement Subcutaneous -Post Debridement Size (cm) - Length 0.3 -Post Debridement Size (cm) - Width 0.3 -Post Debridement Size (cm) - Depth 0.1 -Total Square Cm 0.09 -Wound/Ulcer Outcome Not Healed -Ulcer Cleansing Rinsed/ Irrigated with Saline -Foul Odor after Cleansing No -Bioengineered Tissue No -Bleeding Controlled with Pressure -Treatment Response Procedure Tolerated Well #1 LEFT AMOS -Time 10:51 -Correct Patient Yes -Correct Side, Site, Position Yes -Correct Procedure Yes -Procedure Performed Yes -Type of Procedure Debridement -Clinical Debridement Subcutaneous -Post Debridement Size (cm) - Length 1.0 -Post Debridement Size (cm) - Width 0.3 -Post Debridement Size (cm) - Depth 0.1 -Total Square Cm 0.30 -Wound/Ulcer Outcome Not Healed -Ulcer Cleansing Rinsed/ Irrigated with Saline -Foul Odor after Cleansing No -Bioengineered Tissue No -Bleeding Controlled with Pressure -Treatment Response Procedure Tolerated Well [See Physician Procedure note for Specifics] Pain Scale: 0-10 Numeric [Pain] -Is Patient Pain Free? Yes Musculoskeletal: No Muscle Wasting Neurological: Cranial nerves II-XII grossly intact Psych/Mental Status: Normal Affect Debridement Note Post-Debridement Measurements/Treatment WC - Nurse 2 - General Ulcer CM Notes Start: 03/20/18 09:50 Freq: Status: Active Protocol: Activity Type Activity Date Activity User E-Sign Co-Sign Detail Recorded Client Recorded Date Recorded By Document 03/20/18 10:52 MW [id number] 03/20/18 10:54 MW Document 03/27/18 12:06 JS [id number] 03/27/18 12:07 JS Document 04/03/18 09:55 CS [id number] 04/03/18 10:01 CS Document 04/10/18 10:51 MW [id number] 04/10/18 10:56 MW 03/20/18 03/27/18 04/03/18 10:52 12:06 09:55 Wound Center Nurse 2 #5 LEFT MEDIAL. CALF -Time 09:57 -Correct Patient Yes -Correct Side, Site, Position Yes -Correct Procedure Yes -Procedure Performed Yes -Type of Procedure Debridement -Clinical Debridement Subcutaneous -Post Debridement Size (cm) - Length 0.4 -Post Debridement Size (cm) - Width 0.4 -Post Debridement Size (cm) - Depth 0.1 -Total Square Cm 0.16 -Wound/Ulcer Outcome Not Healed -Ulcer Cleansing -Foul Odor after Cleansing -Bioengineered Tissue -Bleeding Controlled with NA -Treatment Response Procedure Tolerated Well #3 RT LAT LE -Time 10:52 12:06 -Correct Patient Yes Yes -Correct Side, Site, Position Yes Yes -Correct Procedure Yes Yes -Procedure Performed Yes No -Type of Procedure Debridement -Clinical Debridement Subcutaneous -Post Debridement Size (cm) - Length 0.3 0 -Post Debridement Size (cm) - Width 0.4 0 -Post Debridement Size (cm) - Depth 0.1 0 -Total Square Cm 0.12 0 -Wound/Ulcer Outcome Not Healed Healed- Epithelialized -Ulcer Cleansing Rinsed/ Not Cleansed Irrigated with Saline -Foul Odor after Cleansing No No -Bioengineered Tissue No No -Bleeding Controlled with Pressure NA -Treatment Response Procedure Procedure Tolerated Well Tolerated Well #2 MEDIAL LLE CLUSTER -Time 10:52 -Post Debridement Size (cm) - Length 0 -Post Debridement Size (cm) - Width 0 -Post Debridement Size (cm) - Depth 0 -Total Square Cm 0 -Wound/Ulcer Outcome Not Healed -Ulcer Cleansing Rinsed/ Irrigated with Saline -Foul Odor after Cleansing No -Bioengineered Tissue No -Bleeding Controlled with Pressure -Treatment Response Procedure Tolerated Well #1 LEFT AMOS -Time 10:53 12:07 09:58 -Correct Patient Yes Yes Yes -Correct Side, Site, Position Yes Yes Yes -Correct Procedure Yes Yes Yes -Procedure Performed Yes Yes Yes -Type of Procedure Debridement Debridement Debridement -Clinical Debridement Subcutaneous Subcutaneous Subcutaneous -Post Debridement Size (cm) - Length 1.9 1.2 0.9 -Post Debridement Size (cm) - Width 0.8 0.6 0.2 -Post Debridement Size (cm) - Depth 0.1 0.1 0.1 -Total Square Cm 1.52 0.72 0.18 -Wound/Ulcer Outcome Not Healed Not Healed Not Healed -Ulcer Cleansing Rinsed/ Rinsed/ Not Cleansed Irrigated with Irrigated with Saline Saline -Foul Odor after Cleansing No No -Bioengineered Tissue No No -Bleeding Controlled with Pressure NA -Treatment Response Procedure Procedure Tolerated Well Tolerated Well Pain Scale: 0-10 Numeric Is Patient Pain Free? Yes Yes Yes 04/10/18 10:51 Wound Center Nurse 2 #5 LEFT MEDIAL. CALF -Time 10:51 -Correct Patient Yes -Correct Side, Site, Position Yes -Correct Procedure Yes -Procedure Performed Yes -Type of Procedure Debridement -Clinical Debridement Subcutaneous -Post Debridement Size (cm) - Length 0.3 -Post Debridement Size (cm) - Width 0.3 -Post Debridement Size (cm) - Depth 0.1 -Total Square Cm 0.09 -Wound/Ulcer Outcome Not Healed -Ulcer Cleansing Rinsed/ Irrigated with Saline -Foul Odor after Cleansing No -Bioengineered Tissue No -Bleeding Controlled with Pressure -Treatment Response Procedure Tolerated Well #3 RT LAT LE -Time -Correct Patient -Correct Side, Site, Position -Correct Procedure -Procedure Performed -Type of Procedure -Clinical Debridement -Post Debridement Size (cm) - Length -Post Debridement Size (cm) - Width -Post Debridement Size (cm) - Depth -Total Square Cm -Wound/Ulcer Outcome -Ulcer Cleansing -Foul Odor after Cleansing -Bioengineered Tissue -Bleeding Controlled with -Treatment Response #2 MEDIAL LLE CLUSTER -Time -Post Debridement Size (cm) - Length -Post Debridement Size (cm) - Width -Post Debridement Size (cm) - Depth -Total Square Cm -Wound/Ulcer Outcome -Ulcer Cleansing -Foul Odor after Cleansing -Bioengineered Tissue -Bleeding Controlled with -Treatment Response #1 LEFT AMOS -Time 10:51 -Correct Patient Yes -Correct Side, Site, Position Yes -Correct Procedure Yes -Procedure Performed Yes -Type of Procedure Debridement -Clinical Debridement Subcutaneous -Post Debridement Size (cm) - Length 1.0 -Post Debridement Size (cm) - Width 0.3 -Post Debridement Size (cm) - Depth 0.1 -Total Square Cm 0.30 -Wound/Ulcer Outcome Not Healed -Ulcer Cleansing Rinsed/ Irrigated with Saline -Foul Odor after Cleansing No -Bioengineered Tissue No -Bleeding Controlled with Pressure -Treatment Response Procedure Tolerated Well Pain Scale: 0-10 Numeric Is Patient Pain Free? Yes Wound debrided: Left lower extremity ( Amos ) Wound Grade/Stage: Grade II Type of Debridement: Excisional debridement Anesthesia Used: 4% Lidocaine Solution Depth: Down to and including healthy tissue, in the subcutaneous layer Percentage of wound debrided: 100 Instrument Used: 3mm curette Tissue Removed: Slough and devitalized tissue Severity: Fat Layer Exposed Amount of bleeding with debridement: Mild Bleeding Controlled with: Pressure Patient tolerated procedure well - Additional Wound Wound debrided: Left medial calf Wound Grade/Stage: Grade 1 Type of Debridement: Excisional debridement Anesthesia Used: 4% Lidocaine Solution Depth: Down to and including healthy tissue, in the subcutaneous layer Percentage of wound debrided: 100 Instrument Used: 3mm curette Tissue Removed: Slough and devitalized tissue Severity: Fat Layer Exposed Amount of bleeding with debridement: Mild Bleeding Controlled with: Pressure Patient tolerated procedure: Patient tolerated procedure well Assessment/Plan Active Problems (Last Reviewed 10/01/17 @ 09:34 by Sandy Valdez) Ulcer of left lower extremity with fat layer exposed (Chronic) Venous insufficiency of both lower extremities (Chronic) Ulcer of right lower extremity with fat layer exposed (Chronic) Venous ulcers of both lower extremities (Chronic) Type 2 diabetes mellitus (Chronic) Assessment: Left lower extremity ulcer most likely secondary to venous insufficiency. Diabetes mellitus type 2, poorly controlled. Bilateral lower extremity venous insufficiency. Plan: Improving ulcers. Debridement done as documented above. Procedure was well-tolerated. Continue Promogran with adaptic over top to both left LE ulcers with light 3M wraps. Continued increased protein intake/supplements recommended. Elevate lower extremity when seated and in bed. Continue Follow- up with PCP for optimal blood sugar management. F/U visit in 1 week. Advised to call with any questions or concerns. This note was generated with [employer] dictation software. It may contain incorrect words, spelling, and punctuation that were not noted in checking the note before signing.
[2018-04-17 10:45] VITALS: BP 148/70; PULSE 66; RESP 18; TEMP 36.7
--- NOTE | 2018-04-17 11:30 | PCM.WC.PN ---
(1) Type 2 diabetes mellitus Status: Chronic Current Visit: Yes Qualifiers: Code(s): E11.9 - Type 2 diabetes mellitus without complications (2) Ulcer of left lower extremity with fat layer exposed Status: Chronic Current Visit: Yes Code(s): L97.922 - Non-pressure chronic ulcer of unspecified part of left lower leg with fat layer exposed (3) Ulcer of right lower extremity with fat layer exposed Status: Chronic Current Visit: Yes Code(s): L97.912 - Non-pressure chronic ulcer of unspecified part of right lower leg with fat layer exposed (4) Venous insufficiency of both lower extremities Status: Chronic Current Visit: Yes Code(s): I87.2 - Venous insufficiency (chronic) (peripheral) (5) Venous ulcers of both lower extremities Status: Chronic Current Visit: Yes Code(s): I87.2 - Venous insufficiency (chronic) (peripheral); L97.919 - Non-pressure chronic ulcer of unspecified part of right lower leg with unspecified severity; L97.929 - Non-pressure chronic ulcer of unspecified part of left lower leg with unspecified severity Type of Wound Date of Service: 04/17/18 Chief Complaint: Left lower extremity ulcers. Bilateral lower extremity swelling. History of Wound: Ms. Jovel 20-year-old who presents to the wound center due to nonhealing left lower extremity wounds/ulcers. Exact etiology is unknown however patient believes it started in early December. She has had no significant wound care but has covered the wound surfaces with Band-Aids. She has noted increased drainage from the wound of clear substance. She was recently seen by primary care physician and started on Augmentin. She has had no cultures done. She feels well otherwise and denies chills, fever, nausea, vomiting or any change in her bowel habit. She is not very compliant with her diabetic care. She is being seen for Dr. De Santiago in her absence for follow up treatment today. She has been tolerating 3M dressings and promogran. Is tolerating Clindamycin as well. Has a few doses left. Has missed some doses. Denies increased drainage, pain or fever or chills. Progress of Wound: Stable. - Physical Exam Vital Signs Temp Pulse Resp BP 98.0 F 66 18 148/70 H 04/17/18 10:45 04/17/18 10:45 04/17/18 10:45 04/17/18 10:45 General: Alert, Oriented x3, Cooperative, No apparent distress HEENT: Atraumatic Oral: Moist Mucosa Neck: Supple Lungs: Normal air movement Extremities: No cyanosis, Edema Skin: Ulcer/ Wound Wound Measurements and Assessment WC - Nurse 1 - General Ulcer Measurement Start: 03/20/18 09:50 Freq: Status: Active Protocol: Activity Type Activity Date Activity User E-Sign Co-Sign Detail Recorded Client Recorded Date Recorded By Document 04/17/18 10:34 [id number] 04/17/18 10:44 04/17/18 10:34 Wound Center Nurse 1 [Ulcer Assessment] #5 LEFT MEDIAL. CALF -Combined with other wound No -Current Size (cm) - Length 0.3 -Current Size (cm) - Width 0.9 -Current Size (cm) - Depth 0.1 -Total Square Cm 0.27 -Photo Taken No -Epithelialization None Present -Undermining/Tunneling No -Circular Undermining No -Granulation Amt Medium (34-66%) -Granulation Quality Rusk Red -Necrosis Amt Medium (34-66%) -Necrotic Tissue Type Adherent Slough -Color (Jessie-wound Skin Appearance) No Abnormality Assessed -Temperature (Jessie-wound Skin No Abnormality Appearance) (Pt Warm) -Tenderness on Palpation (Jessie-wound No Skin Appearance) -Ulcer Cleansing Wound Cleanser -Foul Odor after Cleansing No -Anesthetic Used 4% Lidocaine Solution #1 LEFT AMOS -Combined with other wound No -Current Size (cm) - Length 0.1 -Current Size (cm) - Width 0.1 -Current Size (cm) - Depth 0.1 -Total Square Cm 0.01 -Photo Taken No -Epithelialization Medium 34-66% -Temperature (Jessie-wound Skin No Abnormality Appearance) (Pt Warm) -Tenderness on Palpation (Jessie-wound No Skin Appearance) -Ulcer Cleansing Wound Cleanser -Foul Odor after Cleansing No -Anesthetic Used 4% Lidocaine Solution [Edema Assessment] -Lower Limb Edema Present Yes -Right Calf (cm) 31 -Right Ankle (cm) 21.5 -Left Calf (cm) 29.5 -Left Ankle (cm) 23.0 WC - Nurse 2 - General Ulcer CM Notes Start: 03/20/18 09:50 Freq: Status: Active Protocol: Activity Type Activity Date Activity User E-Sign Co-Sign Detail Recorded Client Recorded Date Recorded By Document 04/17/18 11:19 MW [id number] 04/17/18 11:22 MW 04/17/18 11:19 Wound Center Nurse 2 [Procedure/Treatment] #5 LEFT MEDIAL. CALF -Time 11:20 -Correct Patient Yes -Correct Side, Site, Position Yes -Correct Procedure Yes -Procedure Performed Yes -Type of Procedure Debridement -Clinical Debridement Subcutaneous -Post Debridement Size (cm) - Length 0.4 -Post Debridement Size (cm) - Width 0.8 -Post Debridement Size (cm) - Depth 0.1 -Total Square Cm 0.32 -Wound/Ulcer Outcome Not Healed -Ulcer Cleansing Rinsed/ Irrigated with Saline -Foul Odor after Cleansing No -Bioengineered Tissue No -Bleeding Controlled with Pressure -Treatment Response Procedure Tolerated Well #1 LEFT AMOS -Time 11:20 -Correct Patient Yes -Correct Side, Site, Position Yes -Correct Procedure Yes -Procedure Performed Yes -Type of Procedure Debridement -Clinical Debridement Selective -Post Debridement Size (cm) - Length 0.1 -Post Debridement Size (cm) - Width 0.1 -Post Debridement Size (cm) - Depth 0.1 -Total Square Cm 0.01 -Wound/Ulcer Outcome Not Healed -Ulcer Cleansing Rinsed/ Irrigated with Saline -Foul Odor after Cleansing No -Bioengineered Tissue No -Bleeding Controlled with Pressure -Treatment Response Procedure Tolerated Well [See Physician Procedure note for Specifics] Pain Scale: 0-10 Numeric [Pain] -Is Patient Pain Free? Yes Musculoskeletal: No Muscle Wasting Neurological: Cranial nerves II-XII grossly intact Psych/Mental Status: Normal Affect Debridement Note Post-Debridement Measurements/Treatment WC - Nurse 2 - General Ulcer CM Notes Start: 03/20/18 09:50 Freq: Status: Active Protocol: Activity Type Activity Date Activity User E-Sign Co-Sign Detail Recorded Client Recorded Date Recorded By Document 03/20/18 10:52 MW [id number] 03/20/18 10:54 MW Document 03/27/18 12:06 JS [id number] 03/27/18 12:07 JS Document 04/03/18 09:55 CS [id number] 04/03/18 10:01 CS Document 04/10/18 10:51 MW [id number] 04/10/18 10:56 MW Document 04/17/18 11:19 MW [id number] 04/17/18 11:22 MW 03/20/18 03/27/18 04/03/18 10:52 12:06 09:55 Wound Center Nurse 2 #5 LEFT MEDIAL. CALF -Time 09:57 -Correct Patient Yes -Correct Side, Site, Position Yes -Correct Procedure Yes -Procedure Performed Yes -Type of Procedure Debridement -Clinical Debridement Subcutaneous -Post Debridement Size (cm) - Length 0.4 -Post Debridement Size (cm) - Width 0.4 -Post Debridement Size (cm) - Depth 0.1 -Total Square Cm 0.16 -Wound/Ulcer Outcome Not Healed -Ulcer Cleansing -Foul Odor after Cleansing -Bioengineered Tissue -Bleeding Controlled with NA -Treatment Response Procedure Tolerated Well #3 RT LAT LE -Time 10:52 12:06 -Correct Patient Yes Yes -Correct Side, Site, Position Yes Yes -Correct Procedure Yes Yes -Procedure Performed Yes No -Type of Procedure Debridement -Clinical Debridement Subcutaneous -Post Debridement Size (cm) - Length 0.3 0 -Post Debridement Size (cm) - Width 0.4 0 -Post Debridement Size (cm) - Depth 0.1 0 -Total Square Cm 0.12 0 -Wound/Ulcer Outcome Not Healed Healed- Epithelialized -Ulcer Cleansing Rinsed/ Not Cleansed Irrigated with Saline -Foul Odor after Cleansing No No -Bioengineered Tissue No No -Bleeding Controlled with Pressure NA -Treatment Response Procedure Procedure Tolerated Well Tolerated Well #2 MEDIAL LLE CLUSTER -Time 10:52 -Post Debridement Size (cm) - Length 0 -Post Debridement Size (cm) - Width 0 -Post Debridement Size (cm) - Depth 0 -Total Square Cm 0 -Wound/Ulcer Outcome Not Healed -Ulcer Cleansing Rinsed/ Irrigated with Saline -Foul Odor after Cleansing No -Bioengineered Tissue No -Bleeding Controlled with Pressure -Treatment Response Procedure Tolerated Well #1 LEFT AMOS -Time 10:53 12:07 09:58 -Correct Patient Yes Yes Yes -Correct Side, Site, Position Yes Yes Yes -Correct Procedure Yes Yes Yes -Procedure Performed Yes Yes Yes -Type of Procedure Debridement Debridement Debridement -Clinical Debridement Subcutaneous Subcutaneous Subcutaneous -Post Debridement Size (cm) - Length 1.9 1.2 0.9 -Post Debridement Size (cm) - Width 0.8 0.6 0.2 -Post Debridement Size (cm) - Depth 0.1 0.1 0.1 -Total Square Cm 1.52 0.72 0.18 -Wound/Ulcer Outcome Not Healed Not Healed Not Healed -Ulcer Cleansing Rinsed/ Rinsed/ Not Cleansed Irrigated with Irrigated with Saline Saline -Foul Odor after Cleansing No No -Bioengineered Tissue No No -Bleeding Controlled with Pressure NA -Treatment Response Procedure Procedure Tolerated Well Tolerated Well Pain Scale: 0-10 Numeric Is Patient Pain Free? Yes Yes Yes 04/10/18 04/17/18 10:51 11:19 Wound Center Nurse 2 #5 LEFT MEDIAL. CALF -Time 10:51 11:20 -Correct Patient Yes Yes -Correct Side, Site, Position Yes Yes -Correct Procedure Yes Yes -Procedure Performed Yes Yes -Type of Procedure Debridement Debridement -Clinical Debridement Subcutaneous Subcutaneous -Post Debridement Size (cm) - Length 0.3 0.4 -Post Debridement Size (cm) - Width 0.3 0.8 -Post Debridement Size (cm) - Depth 0.1 0.1 -Total Square Cm 0.09 0.32 -Wound/Ulcer Outcome Not Healed Not Healed -Ulcer Cleansing Rinsed/ Rinsed/ Irrigated with Irrigated with Saline Saline -Foul Odor after Cleansing No No -Bioengineered Tissue No No -Bleeding Controlled with Pressure Pressure -Treatment Response Procedure Procedure Tolerated Well Tolerated Well #3 RT LAT LE -Time -Correct Patient -Correct Side, Site, Position -Correct Procedure -Procedure Performed -Type of Procedure -Clinical Debridement -Post Debridement Size (cm) - Length -Post Debridement Size (cm) - Width -Post Debridement Size (cm) - Depth -Total Square Cm -Wound/Ulcer Outcome -Ulcer Cleansing -Foul Odor after Cleansing -Bioengineered Tissue -Bleeding Controlled with -Treatment Response #2 MEDIAL LLE CLUSTER -Time -Post Debridement Size (cm) - Length -Post Debridement Size (cm) - Width -Post Debridement Size (cm) - Depth -Total Square Cm -Wound/Ulcer Outcome -Ulcer Cleansing -Foul Odor after Cleansing -Bioengineered Tissue -Bleeding Controlled with -Treatment Response #1 LEFT AMOS -Time 10:51 11:20 -Correct Patient Yes Yes -Correct Side, Site, Position Yes Yes -Correct Procedure Yes Yes -Procedure Performed Yes Yes -Type of Procedure Debridement Debridement -Clinical Debridement Subcutaneous Selective -Post Debridement Size (cm) - Length 1.0 0.1 -Post Debridement Size (cm) - Width 0.3 0.1 -Post Debridement Size (cm) - Depth 0.1 0.1 -Total Square Cm 0.30 0.01 -Wound/Ulcer Outcome Not Healed Not Healed -Ulcer Cleansing Rinsed/ Rinsed/ Irrigated with Irrigated with Saline Saline -Foul Odor after Cleansing No No -Bioengineered Tissue No No -Bleeding Controlled with Pressure Pressure -Treatment Response Procedure Procedure Tolerated Well Tolerated Well Pain Scale: 0-10 Numeric Is Patient Pain Free? Yes Yes Wound debrided: Left Amos Wound Grade/Stage: Leigh II Type of Debridement: Selective debridement Anesthesia Used: 4% Lidocaine Solution Depth: Down to and including healthy tissue Percentage of wound debrided: 100 Instrument Used: 3mm curette Tissue Removed: Devitalized tissue Severity: Limited To Skin Breakdown Amount of bleeding with debridement: None Patient tolerated procedure well - Additional Wound Wound debrided: Left medial ( calf ) Wound Grade/Stage: Leigh I Type of Debridement: Excisional debridement Anesthesia Used: 4% Lidocaine Solution Depth: Down to and including healthy tissue, in the subcutaneous layer Percentage of wound debrided: 100 Instrument Used: 3mm curette Tissue Removed: Slough and devitalized tissue Severity: Fat Layer Exposed Amount of bleeding with debridement: Mild Bleeding Controlled with: Pressure Patient tolerated procedure: Patient tolerated procedure well Assessment/Plan Active Problems (Last Reviewed 10/01/17 @ 09:34 by Sandy Valdez) Ulcer of left lower extremity with fat layer exposed (Chronic) Venous insufficiency of both lower extremities (Chronic) Ulcer of right lower extremity with fat layer exposed (Chronic) Venous ulcers of both lower extremities (Chronic) Type 2 diabetes mellitus (Chronic) Assessment: Left lower extremity ulcer most likely secondary to venous insufficiency. Diabetes mellitus type 2, poorly controlled. Bilateral lower extremity venous insufficiency. Plan: Medial calf with some worsening due to location of wound. Debridement done as documented above. Procedure was well-tolerated. Continue Promogran with adaptic over top to both left LE ulcers with light 3M wraps. Continued increased protein intake/supplements recommended. Elevate lower extremity when seated and in bed. Continue Follow-up with PCP for optimal blood sugar management. Advised to elevate lower extremity often to avoid friction with the medial calf wound. F/U visit in 1 week. Advised to call with any questions or concerns. This note was generated with [employer] software. It may contain incorrect words, spelling, and punctuation that were not noted in checking the note before signing.
--- NOTE | 2018-04-17 11:34 | PN.PCM_ITS ---
(1) Type 2 diabetes mellitus Status: Chronic Current Visit: Yes Qualifiers: Code(s): E11.9 - Type 2 diabetes mellitus without complications (2) Ulcer of left lower extremity with fat layer exposed Status: Chronic Current Visit: Yes Code(s): L97.922 - Non-pressure chronic ulcer of unspecified part of left lower leg with fat layer exposed (3) Ulcer of right lower extremity with fat layer exposed Status: Chronic Current Visit: Yes Code(s): L97.912 - Non-pressure chronic ulcer of unspecified part of right lower leg with fat layer exposed (4) Venous insufficiency of both lower extremities Status: Chronic Current Visit: Yes Code(s): I87.2 - Venous insufficiency ( chronic) (peripheral) (5) Venous ulcers of both lower extremities Status: Chronic Current Visit: Yes Code(s): I87.2 - Venous insufficiency ( chronic) (peripheral); L97.919 - Non-pressure chronic ulcer of unspecified part of right lower leg with unspecified severity; L97.929 - Non-pressure chronic ulcer of unspecified part of left lower leg with unspecified severity Type of Wound Date of Service: 04/17/18 Chief Complaint: Left lower extremity ulcers. Bilateral lower extremity swelling. History of Wound: Ms. Jovel 20-year-old who presents to the wound center due to nonhealing left lower extremity wounds/ulcers. Exact etiology is unknown however patient believes it started in early December. She has had no significant wound care but has covered the wound surfaces with Band-Aids. She has noted increased drainage from the wound of clear substance. She was recently seen by primary care physician and started on Augmentin. She has had no cultures done. She feels well otherwise and denies chills, fever, nausea, vomiting or any change in her bowel habit. She is not very compliant with her diabetic care. She is being seen for Dr. De Santiago in her absence for follow up treatment today. She has been tolerating 3M dressings and promogran. Is tolerating Clindamycin as well. Has a few doses left. Has missed some doses. Denies increased drainage , pain or fever or chills. Progress of Wound: Stable. - Physical Exam Vital Signs Temp Pulse Resp BP 98.0 F 66 18 148/70 H 04/17/18 10:45 04/17/18 10:45 04/17/18 10:45 04/17/18 10:45 General: Alert, Oriented x3, Cooperative, No apparent distress HEENT: Atraumatic Oral: Moist Mucosa Neck: Supple Lungs: Normal air movement Extremities: No cyanosis, Edema Skin: Ulcer/ Wound Wound Measurements and Assessment WC - Nurse 1 - General Ulcer Measurement Start: 03/20/18 09:50 Freq: Status: Active Protocol: Activity Type Activity Date Activity User E-Sign Co-Sign Detail Recorded Client Recorded Date Recorded By Document 04/17/18 10:34 [id number] 04/17/18 10:44 04/17/18 10:34 Wound Center Nurse 1 [Ulcer Assessment] #5 LEFT MEDIAL. CALF -Combined with other wound No -Current Size (cm) - Length 0.3 -Current Size (cm) - Width 0.9 -Current Size (cm) - Depth 0.1 -Total Square Cm 0.27 -Photo Taken No -Epithelialization None Present -Undermining/Tunneling No -Circular Undermining No -Granulation Amt Medium (34-66%) -Granulation Quality [place] Red -Necrosis Amt Medium (34-66%) -Necrotic Tissue Type Adherent Slough -Color (Jessie-wound Skin Appearance) No Abnormality Assessed -Temperature (Jessie-wound Skin No Abnormality Appearance) (Pt Warm) -Tenderness on Palpation (Jessie-wound No Skin Appearance) -Ulcer Cleansing Wound Cleanser -Foul Odor after Cleansing No -Anesthetic Used 4% Lidocaine Solution #1 LEFT AMOS -Combined with other wound No -Current Size (cm) - Length 0.1 -Current Size (cm) - Width 0.1 -Current Size (cm) - Depth 0.1 -Total Square Cm 0.01 -Photo Taken No -Epithelialization Medium 34-66% -Temperature (Jessie-wound Skin No Abnormality Appearance) (Pt Warm) -Tenderness on Palpation (Jessie-wound No Skin Appearance) -Ulcer Cleansing Wound Cleanser -Foul Odor after Cleansing No -Anesthetic Used 4% Lidocaine Solution [Edema Assessment] -Lower Limb Edema Present Yes -Right Calf (cm) 31 -Right Ankle (cm) 21.5 -Left Calf (cm) 29.5 -Left Ankle (cm) 23.0 WC - Nurse 2 - General Ulcer CM Notes Start: 03/20/18 09:50 Freq: Status: Active Protocol: Activity Type Activity Date Activity User E-Sign Co-Sign Detail Recorded Client Recorded Date Recorded By Document 04/17/18 11:19 MW [id number] 04/17/18 11:22 MW 04/17/18 11:19 Wound Center Nurse 2 [Procedure/Treatment] #5 LEFT MEDIAL. CALF -Time 11:20 -Correct Patient Yes -Correct Side, Site, Position Yes -Correct Procedure Yes -Procedure Performed Yes -Type of Procedure Debridement -Clinical Debridement Subcutaneous -Post Debridement Size (cm) - Length 0.4 -Post Debridement Size (cm) - Width 0.8 -Post Debridement Size (cm) - Depth 0.1 -Total Square Cm 0.32 -Wound/Ulcer Outcome Not Healed -Ulcer Cleansing Rinsed/ Irrigated with Saline -Foul Odor after Cleansing No -Bioengineered Tissue No -Bleeding Controlled with Pressure -Treatment Response Procedure Tolerated Well #1 LEFT AMOS -Time 11:20 -Correct Patient Yes -Correct Side, Site, Position Yes -Correct Procedure Yes -Procedure Performed Yes -Type of Procedure Debridement -Clinical Debridement Selective -Post Debridement Size (cm) - Length 0.1 -Post Debridement Size (cm) - Width 0.1 -Post Debridement Size (cm) - Depth 0.1 -Total Square Cm 0.01 -Wound/Ulcer Outcome Not Healed -Ulcer Cleansing Rinsed/ Irrigated with Saline -Foul Odor after Cleansing No -Bioengineered Tissue No -Bleeding Controlled with Pressure -Treatment Response Procedure Tolerated Well [See Physician Procedure note for Specifics] Pain Scale: 0-10 Numeric [Pain] -Is Patient Pain Free? Yes Musculoskeletal: No Muscle Wasting Neurological: Cranial nerves II-XII grossly intact Psych/Mental Status: Normal Affect Debridement Note Post-Debridement Measurements/Treatment WC - Nurse 2 - General Ulcer CM Notes Start: 03/20/18 09:50 Freq: Status: Active Protocol: Activity Type Activity Date Activity User E-Sign Co-Sign Detail Recorded Client Recorded Date Recorded By Document 03/20/18 10:52 MW [id number] 03/20/18 10:54 MW Document 03/27/18 12:06 JS [id number] 03/27/18 12:07 JS Document 04/03/18 09:55 CS [id number] 04/03/18 10:01 CS Document 04/10/18 10:51 MW [id number] 04/10/18 10:56 MW Document 04/17/18 11:19 MW [id number] 04/17/18 11:22 MW 03/20/18 03/27/18 04/03/18 10:52 12:06 09:55 Wound Center Nurse 2 #5 LEFT MEDIAL. CALF -Time 09:57 -Correct Patient Yes -Correct Side, Site, Position Yes -Correct Procedure Yes -Procedure Performed Yes -Type of Procedure Debridement -Clinical Debridement Subcutaneous -Post Debridement Size (cm) - Length 0.4 -Post Debridement Size (cm) - Width 0.4 -Post Debridement Size (cm) - Depth 0.1 -Total Square Cm 0.16 -Wound/Ulcer Outcome Not Healed -Ulcer Cleansing -Foul Odor after Cleansing -Bioengineered Tissue -Bleeding Controlled with NA -Treatment Response Procedure Tolerated Well #3 RT LAT LE -Time 10:52 12:06 -Correct Patient Yes Yes -Correct Side, Site, Position Yes Yes -Correct Procedure Yes Yes -Procedure Performed Yes No -Type of Procedure Debridement -Clinical Debridement Subcutaneous -Post Debridement Size (cm) - Length 0.3 0 -Post Debridement Size (cm) - Width 0.4 0 -Post Debridement Size (cm) - Depth 0.1 0 -Total Square Cm 0.12 0 -Wound/Ulcer Outcome Not Healed Healed- Epithelialized -Ulcer Cleansing Rinsed/ Not Cleansed Irrigated with Saline -Foul Odor after Cleansing No No -Bioengineered Tissue No No -Bleeding Controlled with Pressure NA -Treatment Response Procedure Procedure Tolerated Well Tolerated Well #2 MEDIAL LLE CLUSTER -Time 10:52 -Post Debridement Size (cm) - Length 0 -Post Debridement Size (cm) - Width 0 -Post Debridement Size (cm) - Depth 0 -Total Square Cm 0 -Wound/Ulcer Outcome Not Healed -Ulcer Cleansing Rinsed/ Irrigated with Saline -Foul Odor after Cleansing No -Bioengineered Tissue No -Bleeding Controlled with Pressure -Treatment Response Procedure Tolerated Well #1 LEFT AMOS -Time 10:53 12:07 09:58 -Correct Patient Yes Yes Yes -Correct Side, Site, Position Yes Yes Yes -Correct Procedure Yes Yes Yes -Procedure Performed Yes Yes Yes -Type of Procedure Debridement Debridement Debridement -Clinical Debridement Subcutaneous Subcutaneous Subcutaneous -Post Debridement Size (cm) - Length 1.9 1.2 0.9 -Post Debridement Size (cm) - Width 0.8 0.6 0.2 -Post Debridement Size (cm) - Depth 0.1 0.1 0.1 -Total Square Cm 1.52 0.72 0.18 -Wound/Ulcer Outcome Not Healed Not Healed Not Healed -Ulcer Cleansing Rinsed/ Rinsed/ Not Cleansed Irrigated with Irrigated with Saline Saline -Foul Odor after Cleansing No No -Bioengineered Tissue No No -Bleeding Controlled with Pressure NA -Treatment Response Procedure Procedure Tolerated Well Tolerated Well Pain Scale: 0-10 Numeric Is Patient Pain Free? Yes Yes Yes 04/10/18 04/17/18 10:51 11:19 Wound Center Nurse 2 #5 LEFT MEDIAL. CALF -Time 10:51 11:20 -Correct Patient Yes Yes -Correct Side, Site, Position Yes Yes -Correct Procedure Yes Yes -Procedure Performed Yes Yes -Type of Procedure Debridement Debridement -Clinical Debridement Subcutaneous Subcutaneous -Post Debridement Size (cm) - Length 0.3 0.4 -Post Debridement Size (cm) - Width 0.3 0.8 -Post Debridement Size (cm) - Depth 0.1 0.1 -Total Square Cm 0.09 0.32 -Wound/Ulcer Outcome Not Healed Not Healed -Ulcer Cleansing Rinsed/ Rinsed/ Irrigated with Irrigated with Saline Saline -Foul Odor after Cleansing No No -Bioengineered Tissue No No -Bleeding Controlled with Pressure Pressure -Treatment Response Procedure Procedure Tolerated Well Tolerated Well #3 RT LAT LE -Time -Correct Patient -Correct Side, Site, Position -Correct Procedure -Procedure Performed -Type of Procedure -Clinical Debridement -Post Debridement Size (cm) - Length -Post Debridement Size (cm) - Width -Post Debridement Size (cm) - Depth -Total Square Cm -Wound/Ulcer Outcome -Ulcer Cleansing -Foul Odor after Cleansing -Bioengineered Tissue -Bleeding Controlled with -Treatment Response #2 MEDIAL LLE CLUSTER -Time -Post Debridement Size (cm) - Length -Post Debridement Size (cm) - Width -Post Debridement Size (cm) - Depth -Total Square Cm -Wound/Ulcer Outcome -Ulcer Cleansing -Foul Odor after Cleansing -Bioengineered Tissue -Bleeding Controlled with -Treatment Response #1 LEFT AMOS -Time 10:51 11:20 -Correct Patient Yes Yes -Correct Side, Site, Position Yes Yes -Correct Procedure Yes Yes -Procedure Performed Yes Yes -Type of Procedure Debridement Debridement -Clinical Debridement Subcutaneous Selective -Post Debridement Size (cm) - Length 1.0 0.1 -Post Debridement Size (cm) - Width 0.3 0.1 -Post Debridement Size (cm) - Depth 0.1 0.1 -Total Square Cm 0.30 0.01 -Wound/Ulcer Outcome Not Healed Not Healed -Ulcer Cleansing Rinsed/ Rinsed/ Irrigated with Irrigated with Saline Saline -Foul Odor after Cleansing No No -Bioengineered Tissue No No -Bleeding Controlled with Pressure Pressure -Treatment Response Procedure Procedure Tolerated Well Tolerated Well Pain Scale: 0-10 Numeric Is Patient Pain Free? Yes Yes Wound debrided: Left Amos Wound Grade/Stage: Leigh II Type of Debridement: Selective debridement Anesthesia Used: 4% Lidocaine Solution Depth: Down to and including healthy tissue Percentage of wound debrided: 100 Instrument Used: 3mm curette Tissue Removed: Devitalized tissue Severity: Limited To Skin Breakdown Amount of bleeding with debridement: None Patient tolerated procedure well - Additional Wound Wound debrided: Left medial ( calf ) Wound Grade/Stage: Leigh I Type of Debridement: Excisional debridement Anesthesia Used: 4% Lidocaine Solution Depth: Down to and including healthy tissue, in the subcutaneous layer Percentage of wound debrided: 100 Instrument Used: 3mm curette Tissue Removed: Slough and devitalized tissue Severity: Fat Layer Exposed Amount of bleeding with debridement: Mild Bleeding Controlled with: Pressure Patient tolerated procedure: Patient tolerated procedure well Assessment/Plan Active Problems (Last Reviewed 10/01/17 @ 09:34 by Sandy Valdez) Ulcer of left lower extremity with fat layer exposed (Chronic) Venous insufficiency of both lower extremities (Chronic) Ulcer of right lower extremity with fat layer exposed (Chronic) Venous ulcers of both lower extremities (Chronic) Type 2 diabetes mellitus (Chronic) Assessment: Left lower extremity ulcer most likely secondary to venous insufficiency. Diabetes mellitus type 2, poorly controlled. Bilateral lower extremity venous insufficiency. Plan: Medial calf with some worsening due to location of wound. Debridement done as documented above. Procedure was well-tolerated. Continue Promogran with adaptic over top to both left LE ulcers with light 3M wraps. Continued increased protein intake/supplements recommended. Elevate lower extremity when seated and in bed. Continue Follow-up with PCP for optimal blood sugar management. Advised to elevate lower extremity often to avoid friction with the medial calf wound. F/U visit in 1 week. Advised to call with any questions or concerns. This note was generated with [employer] software. It may contain incorrect words, spelling, and punctuation that were not noted in checking the note before signing.
== END 2018-04-19 23:59 ==
LOC: WC 10:45
PROVIDERS: Family Provider Family Medicine; PCP Family Medicine; Visit Provider Internal Medicine
DX: E11.622 Type 2 diabetes mellitus with other skin ulcer (principal); L97.812 Non-pressure chronic ulcer of other part of right lower leg with fat layer exposed; L97.822 Non-pressure chronic ulcer of other part of left lower leg with fat layer exposed; E11.51 Type 2 diabetes mellitus with diabetic peripheral angiopathy without gangrene; M79.89 Other specified soft tissue disorders; E11.65 Type 2 diabetes mellitus with hyperglycemia
CPT/HCPCS: 11042; 29581; 97597; 99213; G0463

== ENCOUNTER → 2018-04-25 13:08 | Outpatient (CLI) | payer MEDICARE, OTHER, SELFPAY ==
[2018-04-25 14:41] LABS: AST(SGOT) 11 U/L (15-37); Alanine Aminotransfer ALT/SGPT 23 U/L (13-56); Albumin, Serum 3.3 g/dL (3.2-5.0); Alkaline Phosphatase 175 U/L (45-117); Bilirubin, Direct 0.13 mg/dL (0.00-0.30); Globulin 3.2 g/dL (2.2-4.2); Protein, Total 6.5 g/dL (6.4-8.2); T4 Total, Thyroxin 11.3 ug/dL (4.8-13.9)
== END ==
PROVIDERS: Family Provider Family Medicine; PCP Family Medicine; Visit Provider Physician Assistant Medical
DX: I48.0 Paroxysmal atrial fibrillation (principal); I10 Essential (primary) hypertension
CPT/HCPCS: 36415; 80076; 84436; 84443

== ENCOUNTER → 2018-05-13 10:33 | Outpatient (CLI) | payer MEDICARE, OTHER, SELFPAY ==
[2018-05-13 12:05] LABS: Absolute Lymphocyte Count 1.09 X10^3/ul (0.83-4.51); Absolute Neutrophil Count 4.4 X10^3/uL (2.0-7.7); Basophil# 0.01 X10^3/uL; Basophil% 0.2 % (0-1); Eosinophil# 0.02 X10^3/uL; Eosinophils% 0.3 % (0-5); Hematocrit 36.8 % (37-47); Hemoglobin 12.1 g/dl (12.0-15.0); Lymphocyte # 1.09 X10^3/ul (4.0); Lymphocyte % 18.4 % (19-41); Mean Corp Hgb Conc 32.9 g/gl (32-36); Mean Corpuscular Hgb 29.1 pg (27.0-32.0); Mean Corpuscular Volume 88.5 fL (81-99); Monocyte# 0.35 X10^3/uL; Monocyte% 5.9 % (0-10); Neutrophil # 4.44 X10^3/uL (2.7-7.7); Neutrophil % 74.7 % (47-70); Platelet Count 271 K/mm3 (150-450); RBC Distribution Width CV 14.6 % (11.6-14.6); RBC Distribution Width SD 46.4 fl (35.1-43.9); Red Blood Count 4.16 M/mm3 (4.2-5.4); White Blood Count 5.9 K/mm3 (4.4-11.0)
[2018-05-13 12:07] LABS: POSITIVE COUNT NO; POSITIVE DIFFERENTIAL NO; POSITIVE MORPHOLOGY NO
[2018-05-13 12:26] LABS: Hemoglobin A1c 13.6 % (4.2-6.3)
[2018-05-13 13:05] LABS: Anion Gap 7 (5-15); BUN 16 mg/dL (7-18); Calcium,Total 8.6 mg/dL (8.5-10.1); Chloride 96 mmol/L (98-107); Creatinine, Serum 0.89 mg/dL (0.55-1.02); EST Glomerular Filtration Rate 65 mL/min (>60); Est Glom Filt Rate - Afr Amer 78 mL/min (>60); Glucose 496 mg/dL (74-106); Potassium 4.4 mmol/L (3.5-5.1); Sodium Level 132 mmol/L (136-145)
== END ==
PROVIDERS: Family Provider Family Medicine; PCP Family Medicine; Visit Provider Family Medicine
DX: E11.65 Type 2 diabetes mellitus with hyperglycemia (principal); I10 Essential (primary) hypertension
CPT/HCPCS: 36415; 80048; 83036; 85025

== ENCOUNTER 2018-05-16 09:30 | Outpatient (RCR) | payer MEDICARE, OTHER, SELFPAY ==
[2018-04-20 01:07] VITALS: BP 148/70; PULSE 66; RESP 18; TEMP 36.7
[2018-04-24 11:40] VITALS: BP 148/56; PULSE 76; RESP 18; TEMP 36.9
--- NOTE | 2018-04-24 13:00 | PCM.WC.PN ---
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 Current Visit: Yes Code(s): L97.922 - Non-pressure chronic ulcer of unspecified part of left lower leg with fat layer exposed (2) Venous insufficiency of both lower extremities Status: Chronic Current Visit: Yes Code(s): I87.2 - Venous insufficiency (chronic) (peripheral) (3) Type 2 diabetes mellitus Status: Chronic Current Visit: No Qualifiers: Code(s): E11.9 - Type 2 diabetes mellitus without complications Type of Wound Date of Service: 04/24/18 Chief Complaint: Left lower extremity ulcers. Bilateral lower extremity swelling. History of Wound: Ms. Jovel 20-year-old who presents to the wound center due to nonhealing left lower extremity wounds/ulcers. Exact etiology is unknown however patient believes it started in early December. She has had no significant wound care but has covered the wound surfaces with Band-Aids. She has noted increased drainage from the wound of clear substance. She was recently seen by primary care physician and started on Augmentin. She has had no cultures done. She feels well otherwise and denies chills, fever, nausea, vomiting or any change in her bowel habit. She is not very compliant with her diabetic care. She is being seen for Dr. De Santiago in her absence for follow up treatment today. She has been tolerating 3M dressings and promogran. Is tolerating Clindamycin as well. Has a few doses left. Has missed some doses. Denies increased drainage, pain or fever or chills. Progress of Wound: Improving. - Physical Exam Vital Signs Temp Pulse Resp BP 98.4 F 76 18 148/56 H 04/24/18 11:40 04/24/18 11:40 04/24/18 11:40 04/24/18 11:40 General: Alert, Oriented x3, Cooperative, No apparent distress HEENT: Atraumatic Oral: Moist Mucosa Neck: Supple Lungs: Normal air movement Abdomen: Non Tender Extremities: No cyanosis, Edema Skin: Ulcer/ Wound Wound Measurements and Assessment WC - Nurse 1 - General Ulcer Measurement Start: 04/24/18 11:39 Freq: Status: Active Protocol: Activity Type Activity Date Activity User E-Sign Co-Sign Detail Recorded Client Recorded Date Recorded By Document 04/24/18 11:40 [id number] 04/24/18 11:53 CS 04/24/18 11:40 Wound Center Nurse 1 [Ulcer Assessment] #5 LEFT MEDIAL. CALF -Combined with other wound No -Current Size (cm) - Length 0.6 -Current Size (cm) - Width 0.3 -Current Size (cm) - Depth 0.1 -Total Square Cm 0.18 -Photo Taken No -Epithelialization Large 67-100% -Tunneling No -Undermining/Tunneling No -Circular Undermining No -Exudate Amt None Present (0 %) -Wound Margin Thickened -Granulation Amt Large (67-100%) -Granulation Quality Pale [place] -Slough/Fibrin Yes -Necrosis Amt Medium (34-66%) -Necrotic Tissue Type Adherent Slough -Structure Exposed None/Limited to Skin Breakdown -Texture (Jessie-wound Skin Appearance) No Abnormality -Moisture (Jessie-wound Skin Appearance No Abnormality ) Assessed -Color (Jessie-wound Skin Appearance) No Abnormality Assessed -Temperature (Jessie-wound Skin No Abnormality Appearance) (Pt Warm) -Tenderness on Palpation (Jessie-wound No Skin Appearance) -Ulcer Cleansing Wound Cleanser -Foul Odor after Cleansing Yes, Due to Product Use -Anesthetic Used 4% Lidocaine Solution #1 LEFT WALLER -Combined with other wound No -Current Size (cm) - Length 0.1 -Current Size (cm) - Width 0.1 -Current Size (cm) - Depth 0.1 -Total Square Cm 0.01 -Photo Taken No -Epithelialization Large 67-100% -Temperature (Jessie-wound Skin No Abnormality Appearance) (Pt Warm) [Edema Assessment] -Lower Limb Edema Present Yes -Point of measurement (cm from the 32 medial instep) -Point of Measurement (cm from the 24.5 medial instep) -Left Calf (cm) 32 -Left Ankle (cm) 24 WC - Nurse 2 - General Ulcer CM Notes Start: 04/24/18 11:39 Freq: Status: Active Protocol: Activity Type Activity Date Activity User E-Sign Co-Sign Detail Recorded Client Recorded Date Recorded By Document 04/24/18 12:11 MW [id number] 04/24/18 12:12 MW 04/24/18 12:11 Wound Center Nurse 2 [Procedure/Treatment] #5 LEFT MEDIAL. CALF -Time 12:11 -Correct Patient Yes -Correct Side, Site, Position Yes -Correct Procedure Yes -Procedure Performed Yes -Type of Procedure Debridement -Clinical Debridement Subcutaneous -Post Debridement Size (cm) - Length 0.4 -Post Debridement Size (cm) - Width 0.4 -Post Debridement Size (cm) - Depth 0.1 -Total Square Cm 0.16 -Wound/Ulcer Outcome Not Healed -Ulcer Cleansing Rinsed/ Irrigated with Saline -Foul Odor after Cleansing No -Bioengineered Tissue No -Bleeding Controlled with Pressure -Treatment Response Procedure Tolerated Well #1 LEFT WALLER -Time 12:11 -Correct Patient Yes -Correct Side, Site, Position Yes -Correct Procedure No -Procedure Performed No -Wound/Ulcer Outcome Healed- Epithelialized -Ulcer Cleansing Not Cleansed -Foul Odor after Cleansing No -Bleeding Controlled with NA -Treatment Response Procedure Tolerated Well [See Physician Procedure note for Specifics] Pain Scale: 0-10 Numeric [Pain] -Is Patient Pain Free? Yes Musculoskeletal: No Muscle Wasting Neurological: Cranial nerves II-XII grossly intact Psych/Mental Status: Normal Affect Debridement Note Post-Debridement Measurements/Treatment WC - Nurse 2 - General Ulcer CM Notes Start: 04/24/18 11:39 Freq: Status: Active Protocol: Activity Type Activity Date Activity User E-Sign Co-Sign Detail Recorded Client Recorded Date Recorded By Document 04/24/18 12:11 MW [id number] 04/24/18 12:12 MW 04/24/18 12:11 Wound Center Nurse 2 #5 LEFT MEDIAL. CALF -Time 12:11 -Correct Patient Yes -Correct Side, Site, Position Yes -Correct Procedure Yes -Procedure Performed Yes -Type of Procedure Debridement -Clinical Debridement Subcutaneous -Post Debridement Size (cm) - Length 0.4 -Post Debridement Size (cm) - Width 0.4 -Post Debridement Size (cm) - Depth 0.1 -Total Square Cm 0.16 -Wound/Ulcer Outcome Not Healed -Ulcer Cleansing Rinsed/ Irrigated with Saline -Foul Odor after Cleansing No -Bioengineered Tissue No -Bleeding Controlled with Pressure -Treatment Response Procedure Tolerated Well #1 LEFT WALLER -Time 12:11 -Correct Patient Yes -Correct Side, Site, Position Yes -Correct Procedure No -Procedure Performed No -Wound/Ulcer Outcome Healed- Epithelialized -Ulcer Cleansing Not Cleansed -Foul Odor after Cleansing No -Bleeding Controlled with NA -Treatment Response Procedure Tolerated Well Pain Scale: 0-10 Numeric Is Patient Pain Free? Yes Wound debrided: Left lower extremity (medial) Wound Grade/Stage: Leigh I Type of Debridement: Excisional debridement Anesthesia Used: 4% Lidocaine Solution Depth: Down to and including healthy tissue, in the subcutaneous layer Percentage of wound debrided: 100 Instrument Used: 3mm curette Tissue Removed: Slough and devitalized tissue. Severity: Fat Layer Exposed Amount of bleeding with debridement: Mild Bleeding Controlled with: Pressure Patient tolerated procedure well Assessment/Plan Active Problems (Last Updated 04/24/18 @ 09:54 by Didi Perez) Ulcer of left lower extremity with fat layer exposed (Chronic) Venous insufficiency of both lower extremities (Chronic) Assessment: Left lower extremity ulcer most likely secondary to venous insufficiency. Diabetes mellitus type 2, poorly controlled. Bilateral lower extremity venous insufficiency. Plan: Improved medial calf ulcer and left waller ulcer has healed. debridement done as documented above. Procedure was well-tolerated. Continue Promogran with adaptic over top to left medial canal and Adaptic to left waller with light 3M wraps. Continued increased protein intake/supplements recommended. Elevate lower extremity when seated and in bed. Continue Follow-up with PCP for optimal blood sugar management. Advised to elevate lower extremity often to avoid friction with the medial calf wound. F/U visit in 1 week. Advised to call with any questions or concerns. This note was generated with [employer] software. It may contain incorrect words, spelling, and punctuation that were not noted in checking the note before signing.
--- NOTE | 2018-04-24 13:05 | PN.PCM_ITS ---
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 Current Visit: Yes Code(s): L97.922 - Non-pressure chronic ulcer of unspecified part of left lower leg with fat layer exposed (2) Venous insufficiency of both lower extremities Status: Chronic Current Visit: Yes Code(s): I87.2 - Venous insufficiency ( chronic) (peripheral) (3) Type 2 diabetes mellitus Status: Chronic Current Visit: No Qualifiers: Code(s): E11.9 - Type 2 diabetes mellitus without complications Type of Wound Date of Service: 04/24/18 Chief Complaint: Left lower extremity ulcers. Bilateral lower extremity swelling. History of Wound: Ms. Jovel 20-year-old who presents to the wound center due to nonhealing left lower extremity wounds/ulcers. Exact etiology is unknown however patient believes it started in early December. She has had no significant wound care but has covered the wound surfaces with Band-Aids. She has noted increased drainage from the wound of clear substance. She was recently seen by primary care physician and started on Augmentin. She has had no cultures done. She feels well otherwise and denies chills, fever, nausea, vomiting or any change in her bowel habit. She is not very compliant with her diabetic care. She is being seen for Dr. De Santiago in her absence for follow up treatment today. She has been tolerating 3M dressings and promogran. Is tolerating Clindamycin as well. Has a few doses left. Has missed some doses. Denies increased drainage , pain or fever or chills. Progress of Wound: Improving. - Physical Exam Vital Signs Temp Pulse Resp BP 98.4 F 76 18 148/56 H 04/24/18 11:40 04/24/18 11:40 04/24/18 11:40 04/24/18 11:40 General: Alert, Oriented x3, Cooperative, No apparent distress HEENT: Atraumatic Oral: Moist Mucosa Neck: Supple Lungs: Normal air movement Abdomen: Non Tender Extremities: No cyanosis, Edema Skin: Ulcer/ Wound Wound Measurements and Assessment WC - Nurse 1 - General Ulcer Measurement Start: 04/24/18 11:39 Freq: Status: Active Protocol: Activity Type Activity Date Activity User E-Sign Co-Sign Detail Recorded Client Recorded Date Recorded By Document 04/24/18 11:40 [id number] 04/24/18 11:53 CS 04/24/18 11:40 Wound Center Nurse 1 [Ulcer Assessment] #5 LEFT MEDIAL. CALF -Combined with other wound No -Current Size (cm) - Length 0.6 -Current Size (cm) - Width 0.3 -Current Size (cm) - Depth 0.1 -Total Square Cm 0.18 -Photo Taken No -Epithelialization Large 67-100% -Tunneling No -Undermining/Tunneling No -Circular Undermining No -Exudate Amt None Present (0 %) -Wound Margin Thickened -Granulation Amt Large (67-100%) -Granulation Quality Pale [place] -Slough/Fibrin Yes -Necrosis Amt Medium (34-66%) -Necrotic Tissue Type Adherent Slough -Structure Exposed None/Limited to Skin Breakdown -Texture (Jessie-wound Skin Appearance) No Abnormality -Moisture (Jessie-wound Skin Appearance No Abnormality ) Assessed -Color (Jessie-wound Skin Appearance) No Abnormality Assessed -Temperature (Jessie-wound Skin No Abnormality Appearance) (Pt Warm) -Tenderness on Palpation (Jessie-wound No Skin Appearance) -Ulcer Cleansing Wound Cleanser -Foul Odor after Cleansing Yes, Due to Product Use -Anesthetic Used 4% Lidocaine Solution #1 LEFT WALLER -Combined with other wound No -Current Size (cm) - Length 0.1 -Current Size (cm) - Width 0.1 -Current Size (cm) - Depth 0.1 -Total Square Cm 0.01 -Photo Taken No -Epithelialization Large 67-100% -Temperature (Jessie-wound Skin No Abnormality Appearance) (Pt Warm) [Edema Assessment] -Lower Limb Edema Present Yes -Point of measurement (cm from the 32 medial instep) -Point of Measurement (cm from the 24.5 medial instep) -Left Calf (cm) 32 -Left Ankle (cm) 24 WC - Nurse 2 - General Ulcer CM Notes Start: 04/24/18 11:39 Freq: Status: Active Protocol: Activity Type Activity Date Activity User E-Sign Co-Sign Detail Recorded Client Recorded Date Recorded By Document 04/24/18 12:11 MW [id number] 04/24/18 12:12 MW 04/24/18 12:11 Wound Center Nurse 2 [Procedure/Treatment] #5 LEFT MEDIAL. CALF -Time 12:11 -Correct Patient Yes -Correct Side, Site, Position Yes -Correct Procedure Yes -Procedure Performed Yes -Type of Procedure Debridement -Clinical Debridement Subcutaneous -Post Debridement Size (cm) - Length 0.4 -Post Debridement Size (cm) - Width 0.4 -Post Debridement Size (cm) - Depth 0.1 -Total Square Cm 0.16 -Wound/Ulcer Outcome Not Healed -Ulcer Cleansing Rinsed/ Irrigated with Saline -Foul Odor after Cleansing No -Bioengineered Tissue No -Bleeding Controlled with Pressure -Treatment Response Procedure Tolerated Well #1 LEFT WALLER -Time 12:11 -Correct Patient Yes -Correct Side, Site, Position Yes -Correct Procedure No -Procedure Performed No -Wound/Ulcer Outcome Healed- Epithelialized -Ulcer Cleansing Not Cleansed -Foul Odor after Cleansing No -Bleeding Controlled with NA -Treatment Response Procedure Tolerated Well [See Physician Procedure note for Specifics] Pain Scale: 0-10 Numeric [Pain] -Is Patient Pain Free? Yes Musculoskeletal: No Muscle Wasting Neurological: Cranial nerves II-XII grossly intact Psych/Mental Status: Normal Affect Debridement Note Post-Debridement Measurements/Treatment WC - Nurse 2 - General Ulcer CM Notes Start: 04/24/18 11:39 Freq: Status: Active Protocol: Activity Type Activity Date Activity User E-Sign Co-Sign Detail Recorded Client Recorded Date Recorded By Document 04/24/18 12:11 MW [id number] 04/24/18 12:12 MW 04/24/18 12:11 Wound Center Nurse 2 #5 LEFT MEDIAL. CALF -Time 12:11 -Correct Patient Yes -Correct Side, Site, Position Yes -Correct Procedure Yes -Procedure Performed Yes -Type of Procedure Debridement -Clinical Debridement Subcutaneous -Post Debridement Size (cm) - Length 0.4 -Post Debridement Size (cm) - Width 0.4 -Post Debridement Size (cm) - Depth 0.1 -Total Square Cm 0.16 -Wound/Ulcer Outcome Not Healed -Ulcer Cleansing Rinsed/ Irrigated with Saline -Foul Odor after Cleansing No -Bioengineered Tissue No -Bleeding Controlled with Pressure -Treatment Response Procedure Tolerated Well #1 LEFT WALLER -Time 12:11 -Correct Patient Yes -Correct Side, Site, Position Yes -Correct Procedure No -Procedure Performed No -Wound/Ulcer Outcome Healed- Epithelialized -Ulcer Cleansing Not Cleansed -Foul Odor after Cleansing No -Bleeding Controlled with NA -Treatment Response Procedure Tolerated Well Pain Scale: 0-10 Numeric Is Patient Pain Free? Yes Wound debrided: Left lower extremity (medial) Wound Grade/Stage: Leigh I Type of Debridement: Excisional debridement Anesthesia Used: 4% Lidocaine Solution Depth: Down to and including healthy tissue, in the subcutaneous layer Percentage of wound debrided: 100 Instrument Used: 3mm curette Tissue Removed: Slough and devitalized tissue. Severity: Fat Layer Exposed Amount of bleeding with debridement: Mild Bleeding Controlled with: Pressure Patient tolerated procedure well Assessment/Plan Active Problems (Last Updated 04/24/18 @ 09:54 by Didi Perez) Ulcer of left lower extremity with fat layer exposed (Chronic) Venous insufficiency of both lower extremities (Chronic) Assessment: Left lower extremity ulcer most likely secondary to venous insufficiency. Diabetes mellitus type 2, poorly controlled. Bilateral lower extremity venous insufficiency. Plan: Improved medial calf ulcer and left waller ulcer has healed. debridement done as documented above. Procedure was well-tolerated. Continue Promogran with adaptic over top to left medial canal and Adaptic to left waller with light 3M wraps. Continued increased protein intake/supplements recommended. Elevate lower extremity when seated and in bed. Continue Follow-up with PCP for optimal blood sugar management. Advised to elevate lower extremity often to avoid friction with the medial calf wound. F/U visit in 1 week. Advised to call with any questions or concerns. This note was generated with [employer] software. It may contain incorrect words, spelling, and punctuation that were not noted in checking the note before signing.
[2018-05-01 10:36] VITALS: BP 130/53; PULSE 78; RESP 18; TEMP 36.6
--- NOTE | 2018-05-01 10:53 | PCM.WC.PN ---
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 Current Visit: Yes Code(s): L97.922 - Non-pressure chronic ulcer of unspecified part of left lower leg with fat layer exposed (2) Venous insufficiency of both lower extremities Status: Chronic Current Visit: Yes Code(s): I87.2 - Venous insufficiency (chronic) (peripheral) (3) Type 2 diabetes mellitus Status: Chronic Current Visit: No Qualifiers: Code(s): E11.9 - Type 2 diabetes mellitus without complications Type of Wound Date of Service: 05/01/18 Chief Complaint: Left lower extremity ulcers. Bilateral lower extremity swelling. History of Wound: Ms. Jovel 20-year-old who presents to the wound center due to nonhealing left lower extremity wounds/ulcers. Exact etiology is unknown however patient believes it started in early December. She has had no significant wound care but has covered the wound surfaces with Band-Aids. She has noted increased drainage from the wound of clear substance. She was recently seen by primary care physician and started on Augmentin. She has had no cultures done. She feels well otherwise and denies chills, fever, nausea, vomiting or any change in her bowel habit. She is not very compliant with her diabetic care. She is being seen for Dr. De Santiago in her absence for follow up treatment today. She has been tolerating 3M dressings and promogran. Is tolerating Clindamycin as well. Has a few doses left. Has missed some doses. Denies increased drainage, pain or fever or chills. Progress of Wound: Healed. - Physical Exam Vital Signs Temp Pulse Resp BP 97.8 F 78 18 130/53 H 05/01/18 10:36 05/01/18 10:36 05/01/18 10:36 05/01/18 10:36 General: Alert, Oriented x3, Cooperative, No apparent distress HEENT: Atraumatic Oral: Moist Mucosa Neck: Supple Lungs: Normal air movement Abdomen: Non Tender Extremities: No cyanosis, Edema Skin: Ulcer/ Wound Wound Measurements and Assessment WC - Nurse 1 - General Ulcer Measurement Start: 04/24/18 11:39 Freq: Status: Active Protocol: Activity Type Activity Date Activity User E-Sign Co-Sign Detail Recorded Client Recorded Date Recorded By Document 05/01/18 10:36 DL [id number] 05/01/18 10:43 DL 05/01/18 10:36 Wound Center Nurse 1 [Ulcer Assessment] #5 LEFT MEDIAL. CALF -Combined with other wound No -Current Size (cm) - Length 0.1 -Current Size (cm) - Width 0.1 -Current Size (cm) - Depth 0.1 -Total Square Cm 0.01 -Photo Taken No -Epithelialization Large 67-100% -Tunneling No -Undermining/Tunneling No -Circular Undermining No -Exudate Amt None Present (0 %) -Wound Margin Flat & Intact -Granulation Amt None Present (0 %) -Granulation Quality N/A -Slough/Fibrin No -Necrosis Amt None Present (0 %) -Structure Exposed N/A -Texture (Jessie-wound Skin Appearance) Assessed Localized Edema -Moisture (Jessie-wound Skin Appearance No Abnormality ) Assessed -Color (Jessie-wound Skin Appearance) No Abnormality Assessed -Temperature (Jessie-wound Skin No Abnormality Appearance) (Pt Warm) -Tenderness on Palpation (Jessie-wound No Skin Appearance) -Ulcer Cleansing Not Cleansed -Foul Odor after Cleansing No [Edema Assessment] -Lower Limb Edema Present Yes -Right Calf (cm) 30.5 -Right Ankle (cm) 22.0 -Left Calf (cm) 30.2 -Left Ankle (cm) 22.3 WC - Nurse 2 - General Ulcer CM Notes Start: 04/24/18 11:39 Freq: Status: Active Protocol: Activity Type Activity Date Activity User E-Sign Co-Sign Detail Recorded Client Recorded Date Recorded By Document 05/01/18 10:44 MW [id number] 05/01/18 10:50 MW 05/01/18 10:44 Wound Center Nurse 2 [Procedure/Treatment] #5 LEFT MEDIAL. CALF -Time 10:48 -Correct Patient Yes -Correct Side, Site, Position Yes -Correct Procedure No -Procedure Performed No -Post Debridement Size (cm) - Length 0 -Post Debridement Size (cm) - Width 0 -Post Debridement Size (cm) - Depth 0 -Total Square Cm 0 -Wound/Ulcer Outcome Healed- Epithelialized -Ulcer Cleansing Rinsed/ Irrigated with Saline -Foul Odor after Cleansing No -Bleeding Controlled with NA -Treatment Response Procedure Tolerated Well [See Physician Procedure note for Specifics] Pain Scale: 0-10 Numeric [Pain] -Is Patient Pain Free? Yes Musculoskeletal: No Muscle Wasting Neurological: Cranial nerves II-XII grossly intact Psych/Mental Status: Normal Affect Debridement Note Post-Debridement Measurements/Treatment WC - Nurse 2 - General Ulcer CM Notes Start: 04/24/18 11:39 Freq: Status: Active Protocol: Activity Type Activity Date Activity User E-Sign Co-Sign Detail Recorded Client Recorded Date Recorded By Document 04/24/18 12:11 MW [id number] 04/24/18 12:12 MW Document 05/01/18 10:44 MW [id number] 05/01/18 10:50 MW 04/24/18 05/01/18 12:11 10:44 Wound Center Nurse 2 #5 LEFT MEDIAL. CALF -Time 12:11 10:48 -Correct Patient Yes Yes -Correct Side, Site, Position Yes Yes -Correct Procedure Yes No -Procedure Performed Yes No -Type of Procedure Debridement -Clinical Debridement Subcutaneous -Post Debridement Size (cm) - Length 0.4 0 -Post Debridement Size (cm) - Width 0.4 0 -Post Debridement Size (cm) - Depth 0.1 0 -Total Square Cm 0.16 0 -Wound/Ulcer Outcome Not Healed Healed- Epithelialized -Ulcer Cleansing Rinsed/ Rinsed/ Irrigated with Irrigated with Saline Saline -Foul Odor after Cleansing No No -Bioengineered Tissue No -Bleeding Controlled with Pressure NA -Treatment Response Procedure Procedure Tolerated Well Tolerated Well #1 LEFT WALLER -Time 12:11 -Correct Patient Yes -Correct Side, Site, Position Yes -Correct Procedure No -Procedure Performed No -Wound/Ulcer Outcome Healed- Epithelialized -Ulcer Cleansing Not Cleansed -Foul Odor after Cleansing No -Bleeding Controlled with NA -Treatment Response Procedure Tolerated Well Pain Scale: 0-10 Numeric Is Patient Pain Free? 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 Diabetes mellitus type 2, poorly controlled. Bilateral lower extremity venous insufficiency. Plan: Ulcers have healed. Apply adaptic li to Calf area x 2 weeks. In with her compression stockings. Advised to wear this daily. Also advised to readjust often to prevent creasing into skin. Elevate lower extremity when seated and in bed. Continue Follow-up with PCP for optimal blood sugar management. Discharged from the wound clinic. Advised to call with any questions or concerns. This note was generated with [employer] dictation software. It may contain incorrect words, spelling, and punctuation that were not noted in checking the note before signing.
--- NOTE | 2018-05-01 10:58 | PN.PCM_ITS ---
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 Current Visit: Yes Code(s): L97.922 - Non-pressure chronic ulcer of unspecified part of left lower leg with fat layer exposed (2) Venous insufficiency of both lower extremities Status: Chronic Current Visit: Yes Code(s): I87.2 - Venous insufficiency ( chronic) (peripheral) (3) Type 2 diabetes mellitus Status: Chronic Current Visit: No Qualifiers: Code(s): E11.9 - Type 2 diabetes mellitus without complications Type of Wound Date of Service: 05/01/18 Chief Complaint: Left lower extremity ulcers. Bilateral lower extremity swelling. History of Wound: Ms. Jovel 20-year-old who presents to the wound center due to nonhealing left lower extremity wounds/ulcers. Exact etiology is unknown however patient believes it started in early December. She has had no significant wound care but has covered the wound surfaces with Band-Aids. She has noted increased drainage from the wound of clear substance. She was recently seen by primary care physician and started on Augmentin. She has had no cultures done. She feels well otherwise and denies chills, fever, nausea, vomiting or any change in her bowel habit. She is not very compliant with her diabetic care. She is being seen for Dr. De Santiago in her absence for follow up treatment today. She has been tolerating 3M dressings and promogran. Is tolerating Clindamycin as well. Has a few doses left. Has missed some doses. Denies increased drainage , pain or fever or chills. Progress of Wound: Healed. - Physical Exam Vital Signs Temp Pulse Resp BP 97.8 F 78 18 130/53 H 05/01/18 10:36 05/01/18 10:36 05/01/18 10:36 05/01/18 10:36 General: Alert, Oriented x3, Cooperative, No apparent distress HEENT: Atraumatic Oral: Moist Mucosa Neck: Supple Lungs: Normal air movement Abdomen: Non Tender Extremities: No cyanosis, Edema Skin: Ulcer/ Wound Wound Measurements and Assessment WC - Nurse 1 - General Ulcer Measurement Start: 04/24/18 11:39 Freq: Status: Active Protocol: Activity Type Activity Date Activity User E-Sign Co-Sign Detail Recorded Client Recorded Date Recorded By Document 05/01/18 10:36 DL [id number] 05/01/18 10:43 DL 05/01/18 10:36 Wound Center Nurse 1 [Ulcer Assessment] #5 LEFT MEDIAL. CALF -Combined with other wound No -Current Size (cm) - Length 0.1 -Current Size (cm) - Width 0.1 -Current Size (cm) - Depth 0.1 -Total Square Cm 0.01 -Photo Taken No -Epithelialization Large 67-100% -Tunneling No -Undermining/Tunneling No -Circular Undermining No -Exudate Amt None Present (0 %) -Wound Margin Flat & Intact -Granulation Amt None Present (0 %) -Granulation Quality N/A -Slough/Fibrin No -Necrosis Amt None Present (0 %) -Structure Exposed N/A -Texture (Jessie-wound Skin Appearance) Assessed Localized Edema -Moisture (Jessie-wound Skin Appearance No Abnormality ) Assessed -Color (Jessie-wound Skin Appearance) No Abnormality Assessed -Temperature (Jessie-wound Skin No Abnormality Appearance) (Pt Warm) -Tenderness on Palpation (Jessie-wound No Skin Appearance) -Ulcer Cleansing Not Cleansed -Foul Odor after Cleansing No [Edema Assessment] -Lower Limb Edema Present Yes -Right Calf (cm) 30.5 -Right Ankle (cm) 22.0 -Left Calf (cm) 30.2 -Left Ankle (cm) 22.3 WC - Nurse 2 - General Ulcer CM Notes Start: 04/24/18 11:39 Freq: Status: Active Protocol: Activity Type Activity Date Activity User E-Sign Co-Sign Detail Recorded Client Recorded Date Recorded By Document 05/01/18 10:44 MW [id number] 05/01/18 10:50 MW 05/01/18 10:44 Wound Center Nurse 2 [Procedure/Treatment] #5 LEFT MEDIAL. CALF -Time 10:48 -Correct Patient Yes -Correct Side, Site, Position Yes -Correct Procedure No -Procedure Performed No -Post Debridement Size (cm) - Length 0 -Post Debridement Size (cm) - Width 0 -Post Debridement Size (cm) - Depth 0 -Total Square Cm 0 -Wound/Ulcer Outcome Healed- Epithelialized -Ulcer Cleansing Rinsed/ Irrigated with Saline -Foul Odor after Cleansing No -Bleeding Controlled with NA -Treatment Response Procedure Tolerated Well [See Physician Procedure note for Specifics] Pain Scale: 0-10 Numeric [Pain] -Is Patient Pain Free? Yes Musculoskeletal: No Muscle Wasting Neurological: Cranial nerves II-XII grossly intact Psych/Mental Status: Normal Affect Debridement Note Post-Debridement Measurements/Treatment WC - Nurse 2 - General Ulcer CM Notes Start: 04/24/18 11:39 Freq: Status: Active Protocol: Activity Type Activity Date Activity User E-Sign Co-Sign Detail Recorded Client Recorded Date Recorded By Document 04/24/18 12:11 MW [id number] 04/24/18 12:12 MW Document 05/01/18 10:44 MW [id number] 05/01/18 10:50 MW 04/24/18 05/01/18 12:11 10:44 Wound Center Nurse 2 #5 LEFT MEDIAL. CALF -Time 12:11 10:48 -Correct Patient Yes Yes -Correct Side, Site, Position Yes Yes -Correct Procedure Yes No -Procedure Performed Yes No -Type of Procedure Debridement -Clinical Debridement Subcutaneous -Post Debridement Size (cm) - Length 0.4 0 -Post Debridement Size (cm) - Width 0.4 0 -Post Debridement Size (cm) - Depth 0.1 0 -Total Square Cm 0.16 0 -Wound/Ulcer Outcome Not Healed Healed- Epithelialized -Ulcer Cleansing Rinsed/ Rinsed/ Irrigated with Irrigated with Saline Saline -Foul Odor after Cleansing No No -Bioengineered Tissue No -Bleeding Controlled with Pressure NA -Treatment Response Procedure Procedure Tolerated Well Tolerated Well #1 LEFT WALLER -Time 12:11 -Correct Patient Yes -Correct Side, Site, Position Yes -Correct Procedure No -Procedure Performed No -Wound/Ulcer Outcome Healed- Epithelialized -Ulcer Cleansing Not Cleansed -Foul Odor after Cleansing No -Bleeding Controlled with NA -Treatment Response Procedure Tolerated Well Pain Scale: 0-10 Numeric Is Patient Pain Free? 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 Diabetes mellitus type 2, poorly controlled. Bilateral lower extremity venous insufficiency. Plan: Ulcers have healed. Apply adaptic li to Calf area x 2 weeks. In with her compression stockings. Advised to wear this daily. Also advised to readjust often to prevent creasing into skin. Elevate lower extremity when seated and in bed. Continue Follow-up with PCP for optimal blood sugar management. Discharged from the wound clinic. Advised to call with any questions or concerns. This note was generated with [employer] dictation software. It may contain incorrect words, spelling, and punctuation that were not noted in checking the note before signing.
[2018-05-09 11:42] VITALS: BP 107/41; PULSE 77; RESP 18; TEMP 35.8; BMI 25.4
--- NOTE | 2018-05-09 12:31 | PCM.WC.PN ---
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 Current Visit: Yes Code(s): L97.922 - Non-pressure chronic ulcer of unspecified part of left lower leg with fat layer exposed (2) Venous insufficiency of both lower extremities Status: Chronic Current Visit: Yes Code(s): I87.2 - Venous insufficiency (chronic) (peripheral) (3) Type 2 diabetes mellitus Status: Chronic Current Visit: No Qualifiers: Code(s): E11.9 - Type 2 diabetes mellitus without complications (4) Ulcer of right lower extremity with fat layer exposed Status: Chronic Current Visit: No Code(s): L97.912 - Non-pressure chronic ulcer of unspecified part of right lower leg with fat layer exposed Type of Wound Date of Service: 05/09/18 Chief Complaint: Left lower extremity ulcers. Bilateral lower extremity swelling. History of Wound: Ms. Jovel 20-year-old who presents to the wound center due to nonhealing left lower extremity wounds/ulcers. Exact etiology is unknown however patient believes it started in early December. She has had no significant wound care but has covered the wound surfaces with Band-Aids. She has noted increased drainage from the wound of clear substance. She was recently seen by primary care physician and started on Augmentin. She has had no cultures done. She feels well otherwise and denies chills, fever, nausea, vomiting or any change in her bowel habit. She is not very compliant with her diabetic care. She is being seen for Dr. De Santiago in her absence for follow up treatment today. She has been tolerating 3M dressings and promogran. Is tolerating Clindamycin as well. Has a few doses left. Has missed some doses. Denies increased drainage, pain or fever or chills. Progress of Wound: Ms. Jovel had been discharged last week however, she failed to use her compression as direected and now returns with significant bilateral lower extremity selling with mutiole ulcers on both extremities. She deneis any significiant lower extremity pain or feeling of unwell. She also denies chills or fever. - Physical Exam Vital Signs Temp Pulse Resp BP 96.4 F L 77 18 107/41 L 05/09/18 11:42 05/09/18 11:42 05/09/18 11:42 09/20/18 11:42 General: Alert, Oriented x3, Cooperative, No apparent distress HEENT: Atraumatic Oral: Moist Mucosa Neck: Supple Lungs: Normal air movement Extremities: No cyanosis, Edema Skin: Ulcer/ Wound Wound Measurements and Assessment WC - Nurse 1 - General Ulcer Measurement Start: 04/24/18 11:39 Freq: Status: Active Protocol: Activity Type Activity Date Activity User E-Sign Co-Sign Detail Recorded Client Recorded Date Recorded By Document 05/09/18 11:42 [id number] 05/09/18 11:52 05/09/18 11:42 Wound Center Nurse 1 [Ulcer Assessment] #6 right medial le cluster -Combined with other wound No -Current Size (cm) - Length 4.5 -Current Size (cm) - Width 3.6 -Current Size (cm) - Depth 0.1 -Total Square Cm 16.20 -Date of Last Picture (Recall this 05/09/18 field) -Photo Taken Yes -Epithelialization Large 67-100% -Tunneling No -Undermining/Tunneling No -Circular Undermining No -Classification - Thickness Full Thickness without Exposed Support Structure -Exudate Amt Medium (34-66%) -Exudate Type Serosanguineous -Wound Margin Distinct, Outline Attached -Granulation Amt Large (67-100%) -Granulation Quality [place] -Slough/Fibrin Yes -Necrosis Amt Small (1-33%) -Necrotic Tissue Type Adherent Slough -Structure Exposed Fascia Fat Layer Exposed -Texture (Jessie-wound Skin Appearance) Assessed Friable Localized Edema Scarring -Moisture (Jessie-wound Skin Appearance Assessed ) Weeping -Color (Jessie-wound Skin Appearance) Assessed Erythema -Temperature (Jessie-wound Skin No Abnormality Appearance) (Pt Warm) -Tenderness on Palpation (Jessie-wound No Skin Appearance) -Ulcer Cleansing Wound Cleanser -Foul Odor after Cleansing No -Anesthetic Used 5% Lidocaine Gel #5 LEFT MEDIAL. CALF -Combined with other wound No -Current Size (cm) - Length 2.4 -Current Size (cm) - Width 2.0 -Current Size (cm) - Depth 0.1 -Total Square Cm 4.80 -Date of Last Picture (Recall this 05/09/18 field) -Photo Taken Yes -Epithelialization None Present -Tunneling No -Undermining/Tunneling No -Circular Undermining No -Classification - Thickness Full Thickness without Exposed Support Structure -Exudate Amt Medium (34-66%) -Exudate Type Serous -Wound Margin Distinct, Outline Attached -Granulation Amt Large (67-100%) -Granulation Quality [place] -Slough/Fibrin Yes -Necrosis Amt Small (1-33%) -Necrotic Tissue Type Adherent Slough -Structure Exposed Fascia Fat Layer Exposed -Texture (Jessie-wound Skin Appearance) Assessed Friable Localized Edema Scarring -Moisture (Jessie-wound Skin Appearance Assessed ) Weeping -Color (Jessie-wound Skin Appearance) Assessed Erythema -Temperature (Jessie-wound Skin No Abnormality Appearance) (Pt Warm) -Tenderness on Palpation (Jessie-wound No Skin Appearance) -Ulcer Cleansing Wound Cleanser -Foul Odor after Cleansing No -Anesthetic Used 5% Lidocaine Gel #3 RT LAT LE -Combined with other wound No -Current Size (cm) - Length 0.9 -Current Size (cm) - Width 0.8 -Current Size (cm) - Depth 0.2 -Total Square Cm 0.72 -Date of Last Picture (Recall this 05/09/18 field) -Photo Taken Yes -Epithelialization None Present -Tunneling No -Undermining/Tunneling No -Circular Undermining No -Classification - Thickness Full Thickness without Exposed Support Structure -Exudate Amt Small (1-33%) -Exudate Type Serous -Wound Margin Distinct, Outline Attached -Granulation Amt Medium (34-66%) -Granulation Quality [place] -Slough/Fibrin Yes -Necrosis Amt Medium (34-66%) -Necrotic Tissue Type Adherent Slough -Structure Exposed Fascia Fat Layer Exposed -Texture (Jessie-wound Skin Appearance) Assessed Friable Localized Edema Scarring -Moisture (Jessie-wound Skin Appearance Assessed ) Weeping -Color (Jessie-wound Skin Appearance) Assessed Erythema -Temperature (Jessie-wound Skin No Abnormality Appearance) (Pt Warm) -Tenderness on Palpation (Jessie-wound No Skin Appearance) -Ulcer Cleansing Wound Cleanser -Foul Odor after Cleansing No -Anesthetic Used 5% Lidocaine Gel #1 LEFT lower WALLER cluster -Combined with other wound No -Current Size (cm) - Length 1.2 -Current Size (cm) - Width 2.0 -Current Size (cm) - Depth 0.1 -Total Square Cm 2.40 -Date of Last Picture (Recall this 05/09/18 field) -Photo Taken Yes -Epithelialization None Present -Tunneling No -Undermining/Tunneling No -Circular Undermining No -Classification - Thickness Full Thickness without Exposed Support Structure -Exudate Amt Small (1-33%) -Exudate Type Serosanguineous -Wound Margin Distinct, Outline Attached -Granulation Amt Large (67-100%) -Granulation Quality [place] -Slough/Fibrin Yes -Necrosis Amt None Present (0 %) -Necrotic Tissue Type Adherent Slough -Structure Exposed Fascia Fat Layer Exposed -Texture (Jessie-wound Skin Appearance) Assessed Friable Localized Edema Scarring -Moisture (Jessie-wound Skin Appearance Assessed ) Weeping -Color (Jessie-wound Skin Appearance) Assessed Erythema -Temperature (Jessie-wound Skin No Abnormality Appearance) (Pt Warm) -Tenderness on Palpation (Jessie-wound No Skin Appearance) -Ulcer Cleansing Wound Cleanser -Foul Odor after Cleansing No -Anesthetic Used 5% Lidocaine Gel [Edema Assessment] -Lower Limb Edema Present Yes -Right Calf (cm) 38.0 -Right Ankle (cm) 25.5 -Left Calf (cm) 35.5 -Left Ankle (cm) 25.5 WC - Nurse 2 - General Ulcer CM Notes Start: 04/24/18 11:39 Freq: Status: Active Protocol: Activity Type Activity Date Activity User E-Sign Co-Sign Detail Recorded Client Recorded Date Recorded By Document 05/09/18 12:13 MW [id number] 05/09/18 12:18 MW 05/09/18 12:13 Wound Center Nurse 2 [Procedure/Treatment] #6 right medial le cluster -Time 12:13 -Correct Patient Yes -Correct Side, Site, Position Yes -Correct Procedure Yes -Procedure Performed Yes -Type of Procedure Debridement -Clinical Debridement Subcutaneous -Post Debridement Size (cm) - Length 4.5 -Post Debridement Size (cm) - Width 1.0 -Post Debridement Size (cm) - Depth 0.1 -Total Square Cm 4.50 -Wound/Ulcer Outcome Not Healed -Ulcer Cleansing Rinsed/ Irrigated with Saline -Foul Odor after Cleansing No -Bioengineered Tissue No -Bleeding Controlled with Pressure -Treatment Response Procedure Tolerated Well #5 LEFT MEDIAL. CALF -Time 12:13 -Correct Patient Yes -Correct Side, Site, Position Yes -Correct Procedure Yes -Procedure Performed Yes -Type of Procedure Debridement -Clinical Debridement Subcutaneous -Post Debridement Size (cm) - Length 2.5 -Post Debridement Size (cm) - Width 1.8 -Post Debridement Size (cm) - Depth 0.1 -Total Square Cm 4.50 -Wound/Ulcer Outcome Not Healed -Ulcer Cleansing Rinsed/ Irrigated with Saline -Foul Odor after Cleansing No -Bioengineered Tissue No -Bleeding Controlled with Pressure -Treatment Response Procedure Tolerated Well #3 RT LAT LE -Time 12:13 -Correct Patient Yes -Correct Side, Site, Position Yes -Correct Procedure Yes -Procedure Performed Yes -Type of Procedure Debridement -Clinical Debridement Subcutaneous -Post Debridement Size (cm) - Length 1.0 -Post Debridement Size (cm) - Width 0.7 -Post Debridement Size (cm) - Depth 0.2 -Total Square Cm 0.70 -Wound/Ulcer Outcome Not Healed -Ulcer Cleansing Rinsed/ Irrigated with Saline -Foul Odor after Cleansing No -Bioengineered Tissue No -Bleeding Controlled with Pressure -Treatment Response Procedure Tolerated Well #1 LEFT lower WALLER cluster -Time 12:13 -Correct Patient Yes -Correct Side, Site, Position Yes -Correct Procedure Yes -Procedure Performed Yes -Type of Procedure Debridement -Clinical Debridement Subcutaneous -Post Debridement Size (cm) - Length 0.6 -Post Debridement Size (cm) - Width 2.1 -Post Debridement Size (cm) - Depth 0.1 -Total Square Cm 1.26 -Wound/Ulcer Outcome Not Healed -Ulcer Cleansing Rinsed/ Irrigated with Saline -Foul Odor after Cleansing No -Bioengineered Tissue No -Bleeding Controlled with Pressure -Treatment Response Procedure Tolerated Well [See Physician Procedure note for Specifics] Pain Scale: 0-10 Numeric [Pain] -Is Patient Pain Free? Yes Musculoskeletal: No Muscle Wasting Neurological: Cranial nerves II-XII grossly intact Psych/Mental Status: Normal Affect Debridement Note Post-Debridement Measurements/Treatment WC - Nurse 2 - General Ulcer CM Notes Start: 04/24/18 11:39 Freq: Status: Active Protocol: Activity Type Activity Date Activity User E-Sign Co-Sign Detail Recorded Client Recorded Date Recorded By Document 04/24/18 12:11 MW [id number] 04/24/18 12:12 MW Document 05/01/18 10:44 MW [id number] 05/01/18 10:50 MW Document 05/09/18 12:13 MW [id number] 05/09/18 12:18 MW 04/24/18 05/01/1805/09/18 12:11 10:44 12:13 Wound Center Nurse 2 #6 right medial le cluster -Time 12:13 -Correct Patient Yes -Correct Side, Site, Position Yes -Correct Procedure Yes -Procedure Performed Yes -Type of Procedure Debridement -Clinical Debridement Subcutaneous -Post Debridement Size (cm) - Length 4.5 -Post Debridement Size (cm) - Width 1.0 -Post Debridement Size (cm) - Depth 0.1 -Total Square Cm 4.50 -Wound/Ulcer Outcome Not Healed -Ulcer Cleansing Rinsed/ Irrigated with Saline -Foul Odor after Cleansing No -Bioengineered Tissue No -Bleeding Controlled with Pressure -Treatment Response Procedure Tolerated Well #5 LEFT MEDIAL. CALF -Time 12:11 10:48 12:13 -Correct Patient Yes Yes Yes -Correct Side, Site, Position Yes Yes Yes -Correct Procedure Yes No Yes -Procedure Performed Yes No Yes -Type of Procedure Debridement Debridement -Clinical Debridement Subcutaneous Subcutaneous -Post Debridement Size (cm) - Length 0.4 0 2.5 -Post Debridement Size (cm) - Width 0.4 0 1.8 -Post Debridement Size (cm) - Depth 0.1 0 0.1 -Total Square Cm 0.16 0 4.50 -Wound/Ulcer Outcome Not Healed Healed- Not Healed Epithelialized -Ulcer Cleansing Rinsed/ Rinsed/ Rinsed/ Irrigated with Irrigated with Irrigated with Saline Saline Saline -Foul Odor after Cleansing No No No -Bioengineered Tissue No No -Bleeding Controlled with Pressure NA Pressure -Treatment Response Procedure Procedure Procedure Tolerated Well Tolerated Well Tolerated Well #3 RT LAT LE -Time 12:13 -Correct Patient Yes -Correct Side, Site, Position Yes -Correct Procedure Yes -Procedure Performed Yes -Type of Procedure Debridement -Clinical Debridement Subcutaneous -Post Debridement Size (cm) - Length 1.0 -Post Debridement Size (cm) - Width 0.7 -Post Debridement Size (cm) - Depth 0.2 -Total Square Cm 0.70 -Wound/Ulcer Outcome Not Healed -Ulcer Cleansing Rinsed/ Irrigated with Saline -Foul Odor after Cleansing No -Bioengineered Tissue No -Bleeding Controlled with Pressure -Treatment Response Procedure Tolerated Well #1 LEFT lower WALLER cluster -Time 12:11 12:13 -Correct Patient Yes Yes -Correct Side, Site, Position Yes Yes -Correct Procedure No Yes -Procedure Performed No Yes -Type of Procedure Debridement -Clinical Debridement Subcutaneous -Post Debridement Size (cm) - Length 0.6 -Post Debridement Size (cm) - Width 2.1 -Post Debridement Size (cm) - Depth 0.1 -Total Square Cm 1.26 -Wound/Ulcer Outcome Healed- Not Healed Epithelialized -Ulcer Cleansing Not Cleansed Rinsed/ Irrigated with Saline -Foul Odor after Cleansing No No -Bioengineered Tissue No -Bleeding Controlled with NA Pressure -Treatment Response Procedure Procedure Tolerated Well Tolerated Well Pain Scale: 0-10 Numeric Is Patient Pain Free? Yes Yes Yes Wound debrided: Left lateral cluster Wound Grade/Stage: Stage II Type of Debridement: Excisional debridement Anesthesia Used: 4% Lidocaine Solution Depth: Down to and including healthy tissue, in the subcutaneous layer Percentage of wound debrided: 100 Instrument Used: 3mm curette Tissue Removed: Slough and devitalized tissue Severity: Fat Layer Exposed Amount of bleeding with debridement: Mild Bleeding Controlled with: Pressure Patient tolerated procedure well - Additional Wound Wound debrided: Left lower extremity ( medial ) Wound Grade/Stage: Stage II Type of Debridement: Excisional debridement Anesthesia Used: 4% Lidocaine Solution Depth: Down to and including healthy tissue, in the subcutaneous layer Percentage of wound debrided: 100 Instrument Used: 3mm curette Tissue Removed: Slough and devitalized tissue Severity: Fat Layer Exposed Amount of bleeding with debridement: Mild Bleeding Controlled with: Pressure Patient tolerated procedure: Patient tolerated procedure well - Additional Wound Wound debrided: Rigfht medial cluster Wound Grade/Stage: Stage II Type of Debridement: Excisional debridement Anesthesia Used: 4% Lidocaine Solution Depth: Down to and including healthy tissue, in the subcutaneous layer Percentage of wound debrided: 100 Instrument Used: 3mm curette Tissue Removed: Slough and devitalized tissue Severity: Fat Layer Exposed Amount of bleeding with debridement: Mild Bleeding Controlled with: Pressure Patient tolerated procedure: Patient tolerated procedure well - Additional Wound Wound debrided: Right lateral lower extremity Wound Grade/Stage: Stage II Type of Debridement: Excisional debridement Anesthesia Used: 4% Lidocaine Solution Depth: Down to and including healthy tissue, in the subcutaneous layer Percentage of wound debrided: 100 Instrument Used: 3mm curette Tissue Removed: Slough and devitalized tissue Severity: Fat Layer Exposed Amount of bleeding with debridement: Mild Bleeding Controlled with: Pressure Patient tolerated procedure: Patient tolerated procedure well Assessment/Plan Active Problems (Last Updated 04/24/18 @ 09:54 by Didi Perez) Ulcer of left lower extremity with fat layer exposed (Chronic) Venous insufficiency of both lower extremities (Chronic) Assessment: Left lower extremity ulcer most likely secondary to venous insufficiency. Diabetes mellitus type 2, poorly controlled. Bilateral lower extremity venous insufficiency. Plan: Non complaint with compression and so returns witth new wounds. Debridement done as documenetd above, procdure was well tolereated. Fibracol to all wounds with adaptic over top. Elevate lower extremity when seated and in bed. 3M wraps for edema management. Continue Follow-up with PCP for optimal blood sugar management. Follow up in 1 week. Advised to call with any questions or concerns. This note was generated with [employer] dictation software. It may contain incorrect words, spelling, and punctuation that were not noted in checking the note before signing.
--- NOTE | 2018-05-09 12:35 | PN.PCM_ITS ---
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 Current Visit: Yes Code(s): L97.922 - Non-pressure chronic ulcer of unspecified part of left lower leg with fat layer exposed (2) Venous insufficiency of both lower extremities Status: Chronic Current Visit: Yes Code(s): I87.2 - Venous insufficiency ( chronic) (peripheral) (3) Type 2 diabetes mellitus Status: Chronic Current Visit: No Qualifiers: Code(s): E11.9 - Type 2 diabetes mellitus without complications (4) Ulcer of right lower extremity with fat layer exposed Status: Chronic Current Visit: No Code(s): L97.912 - Non-pressure chronic ulcer of unspecified part of right lower leg with fat layer exposed Type of Wound Date of Service: 05/09/18 Chief Complaint: Left lower extremity ulcers. Bilateral lower extremity swelling. History of Wound: Ms. Jovel 20-year-old who presents to the wound center due to nonhealing left lower extremity wounds/ulcers. Exact etiology is unknown however patient believes it started in early December. She has had no significant wound care but has covered the wound surfaces with Band-Aids. She has noted increased drainage from the wound of clear substance. She was recently seen by primary care physician and started on Augmentin. She has had no cultures done. She feels well otherwise and denies chills, fever, nausea, vomiting or any change in her bowel habit. She is not very compliant with her diabetic care. She is being seen for Dr. De Santiago in her absence for follow up treatment today. She has been tolerating 3M dressings and promogran. Is tolerating Clindamycin as well. Has a few doses left. Has missed some doses. Denies increased drainage , pain or fever or chills. Progress of Wound: Ms. Jovel had been discharged last week however, she failed to use her compression as direected and now returns with significant bilateral lower extremity selling with mutiole ulcers on both extremities. She deneis any significiant lower extremity pain or feeling of unwell. She also denies chills or fever. - Physical Exam Vital Signs Temp Pulse Resp BP 96.4 F L 77 18 107/41 L 05/09/18 11:42 05/09/18 11:42 05/09/18 11:42 09/20/18 11:42 General: Alert, Oriented x3, Cooperative, No apparent distress HEENT: Atraumatic Oral: Moist Mucosa Neck: Supple Lungs: Normal air movement Extremities: No cyanosis, Edema Skin: Ulcer/ Wound Wound Measurements and Assessment WC - Nurse 1 - General Ulcer Measurement Start: 04/24/18 11:39 Freq: Status: Active Protocol: Activity Type Activity Date Activity User E-Sign Co-Sign Detail Recorded Client Recorded Date Recorded By Document 05/09/18 11:42 [id number] 05/09/18 11:52 05/09/18 11:42 Wound Center Nurse 1 [Ulcer Assessment] #6 right medial le cluster -Combined with other wound No -Current Size (cm) - Length 4.5 -Current Size (cm) - Width 3.6 -Current Size (cm) - Depth 0.1 -Total Square Cm 16.20 -Date of Last Picture (Recall this 05/09/18 field) -Photo Taken Yes -Epithelialization Large 67-100% -Tunneling No -Undermining/Tunneling No -Circular Undermining No -Classification - Thickness Full Thickness without Exposed Support Structure -Exudate Amt Medium (34-66%) -Exudate Type Serosanguineous -Wound Margin Distinct, Outline Attached -Granulation Amt Large (67-100%) -Granulation Quality [place] -Slough/Fibrin Yes -Necrosis Amt Small (1-33%) -Necrotic Tissue Type Adherent Slough -Structure Exposed Fascia Fat Layer Exposed -Texture (Jessie-wound Skin Appearance) Assessed Friable Localized Edema Scarring -Moisture (Jessie-wound Skin Appearance Assessed ) Weeping -Color (Jessie-wound Skin Appearance) Assessed Erythema -Temperature (Jessie-wound Skin No Abnormality Appearance) (Pt Warm) -Tenderness on Palpation (Jessie-wound No Skin Appearance) -Ulcer Cleansing Wound Cleanser -Foul Odor after Cleansing No -Anesthetic Used 5% Lidocaine Gel #5 LEFT MEDIAL. CALF -Combined with other wound No -Current Size (cm) - Length 2.4 -Current Size (cm) - Width 2.0 -Current Size (cm) - Depth 0.1 -Total Square Cm 4.80 -Date of Last Picture (Recall this 05/09/18 field) -Photo Taken Yes -Epithelialization None Present -Tunneling No -Undermining/Tunneling No -Circular Undermining No -Classification - Thickness Full Thickness without Exposed Support Structure -Exudate Amt Medium (34-66%) -Exudate Type Serous -Wound Margin Distinct, Outline Attached -Granulation Amt Large (67-100%) -Granulation Quality [place] -Slough/Fibrin Yes -Necrosis Amt Small (1-33%) -Necrotic Tissue Type Adherent Slough -Structure Exposed Fascia Fat Layer Exposed -Texture (Jessie-wound Skin Appearance) Assessed Friable Localized Edema Scarring -Moisture (Jessie-wound Skin Appearance Assessed ) Weeping -Color (Jessie-wound Skin Appearance) Assessed Erythema -Temperature (Jessie-wound Skin No Abnormality Appearance) (Pt Warm) -Tenderness on Palpation (Jessie-wound No Skin Appearance) -Ulcer Cleansing Wound Cleanser -Foul Odor after Cleansing No -Anesthetic Used 5% Lidocaine Gel #3 RT LAT LE -Combined with other wound No -Current Size (cm) - Length 0.9 -Current Size (cm) - Width 0.8 -Current Size (cm) - Depth 0.2 -Total Square Cm 0.72 -Date of Last Picture (Recall this 05/09/18 field) -Photo Taken Yes -Epithelialization None Present -Tunneling No -Undermining/Tunneling No -Circular Undermining No -Classification - Thickness Full Thickness without Exposed Support Structure -Exudate Amt Small (1-33%) -Exudate Type Serous -Wound Margin Distinct, Outline Attached -Granulation Amt Medium (34-66%) -Granulation Quality [place] -Slough/Fibrin Yes -Necrosis Amt Medium (34-66%) -Necrotic Tissue Type Adherent Slough -Structure Exposed Fascia Fat Layer Exposed -Texture (Jessie-wound Skin Appearance) Assessed Friable Localized Edema Scarring -Moisture (Jessie-wound Skin Appearance Assessed ) Weeping -Color (Jessie-wound Skin Appearance) Assessed Erythema -Temperature (Jessie-wound Skin No Abnormality Appearance) (Pt Warm) -Tenderness on Palpation (Jessie-wound No Skin Appearance) -Ulcer Cleansing Wound Cleanser -Foul Odor after Cleansing No -Anesthetic Used 5% Lidocaine Gel #1 LEFT lower WALLER cluster -Combined with other wound No -Current Size (cm) - Length 1.2 -Current Size (cm) - Width 2.0 -Current Size (cm) - Depth 0.1 -Total Square Cm 2.40 -Date of Last Picture (Recall this 05/09/18 field) -Photo Taken Yes -Epithelialization None Present -Tunneling No -Undermining/Tunneling No -Circular Undermining No -Classification - Thickness Full Thickness without Exposed Support Structure -Exudate Amt Small (1-33%) -Exudate Type Serosanguineous -Wound Margin Distinct, Outline Attached -Granulation Amt Large (67-100%) -Granulation Quality [place] -Slough/Fibrin Yes -Necrosis Amt None Present (0 %) -Necrotic Tissue Type Adherent Slough -Structure Exposed Fascia Fat Layer Exposed -Texture (Jessie-wound Skin Appearance) Assessed Friable Localized Edema Scarring -Moisture (Jessie-wound Skin Appearance Assessed ) Weeping -Color (Jessie-wound Skin Appearance) Assessed Erythema -Temperature (Jessie-wound Skin No Abnormality Appearance) (Pt Warm) -Tenderness on Palpation (Jessie-wound No Skin Appearance) -Ulcer Cleansing Wound Cleanser -Foul Odor after Cleansing No -Anesthetic Used 5% Lidocaine Gel [Edema Assessment] -Lower Limb Edema Present Yes -Right Calf (cm) 38.0 -Right Ankle (cm) 25.5 -Left Calf (cm) 35.5 -Left Ankle (cm) 25.5 WC - Nurse 2 - General Ulcer CM Notes Start: 04/24/18 11:39 Freq: Status: Active Protocol: Activity Type Activity Date Activity User E-Sign Co-Sign Detail Recorded Client Recorded Date Recorded By Document 05/09/18 12:13 MW [id number] 05/09/18 12:18 MW 05/09/18 12:13 Wound Center Nurse 2 [Procedure/Treatment] #6 right medial le cluster -Time 12:13 -Correct Patient Yes -Correct Side, Site, Position Yes -Correct Procedure Yes -Procedure Performed Yes -Type of Procedure Debridement -Clinical Debridement Subcutaneous -Post Debridement Size (cm) - Length 4.5 -Post Debridement Size (cm) - Width 1.0 -Post Debridement Size (cm) - Depth 0.1 -Total Square Cm 4.50 -Wound/Ulcer Outcome Not Healed -Ulcer Cleansing Rinsed/ Irrigated with Saline -Foul Odor after Cleansing No -Bioengineered Tissue No -Bleeding Controlled with Pressure -Treatment Response Procedure Tolerated Well #5 LEFT MEDIAL. CALF -Time 12:13 -Correct Patient Yes -Correct Side, Site, Position Yes -Correct Procedure Yes -Procedure Performed Yes -Type of Procedure Debridement -Clinical Debridement Subcutaneous -Post Debridement Size (cm) - Length 2.5 -Post Debridement Size (cm) - Width 1.8 -Post Debridement Size (cm) - Depth 0.1 -Total Square Cm 4.50 -Wound/Ulcer Outcome Not Healed -Ulcer Cleansing Rinsed/ Irrigated with Saline -Foul Odor after Cleansing No -Bioengineered Tissue No -Bleeding Controlled with Pressure -Treatment Response Procedure Tolerated Well #3 RT LAT LE -Time 12:13 -Correct Patient Yes -Correct Side, Site, Position Yes -Correct Procedure Yes -Procedure Performed Yes -Type of Procedure Debridement -Clinical Debridement Subcutaneous -Post Debridement Size (cm) - Length 1.0 -Post Debridement Size (cm) - Width 0.7 -Post Debridement Size (cm) - Depth 0.2 -Total Square Cm 0.70 -Wound/Ulcer Outcome Not Healed -Ulcer Cleansing Rinsed/ Irrigated with Saline -Foul Odor after Cleansing No -Bioengineered Tissue No -Bleeding Controlled with Pressure -Treatment Response Procedure Tolerated Well #1 LEFT lower WALLER cluster -Time 12:13 -Correct Patient Yes -Correct Side, Site, Position Yes -Correct Procedure Yes -Procedure Performed Yes -Type of Procedure Debridement -Clinical Debridement Subcutaneous -Post Debridement Size (cm) - Length 0.6 -Post Debridement Size (cm) - Width 2.1 -Post Debridement Size (cm) - Depth 0.1 -Total Square Cm 1.26 -Wound/Ulcer Outcome Not Healed -Ulcer Cleansing Rinsed/ Irrigated with Saline -Foul Odor after Cleansing No -Bioengineered Tissue No -Bleeding Controlled with Pressure -Treatment Response Procedure Tolerated Well [See Physician Procedure note for Specifics] Pain Scale: 0-10 Numeric [Pain] -Is Patient Pain Free? Yes Musculoskeletal: No Muscle Wasting Neurological: Cranial nerves II-XII grossly intact Psych/Mental Status: Normal Affect Debridement Note Post-Debridement Measurements/Treatment WC - Nurse 2 - General Ulcer CM Notes Start: 04/24/18 11:39 Freq: Status: Active Protocol: Activity Type Activity Date Activity User E-Sign Co-Sign Detail Recorded Client Recorded Date Recorded By Document 04/24/18 12:11 MW [id number] 04/24/18 12:12 MW Document 05/01/18 10:44 MW [id number] 05/01/18 10:50 MW Document 05/09/18 12:13 MW [id number] 05/09/18 12:18 MW 04/24/18 05/01/1805/09/18 12:11 10:44 12:13 Wound Center Nurse 2 #6 right medial le cluster -Time 12:13 -Correct Patient Yes -Correct Side, Site, Position Yes -Correct Procedure Yes -Procedure Performed Yes -Type of Procedure Debridement -Clinical Debridement Subcutaneous -Post Debridement Size (cm) - Length 4.5 -Post Debridement Size (cm) - Width 1.0 -Post Debridement Size (cm) - Depth 0.1 -Total Square Cm 4.50 -Wound/Ulcer Outcome Not Healed -Ulcer Cleansing Rinsed/ Irrigated with Saline -Foul Odor after Cleansing No -Bioengineered Tissue No -Bleeding Controlled with Pressure -Treatment Response Procedure Tolerated Well #5 LEFT MEDIAL. CALF -Time 12:11 10:48 12:13 -Correct Patient Yes Yes Yes -Correct Side, Site, Position Yes Yes Yes -Correct Procedure Yes No Yes -Procedure Performed Yes No Yes -Type of Procedure Debridement Debridement -Clinical Debridement Subcutaneous Subcutaneous -Post Debridement Size (cm) - Length 0.4 0 2.5 -Post Debridement Size (cm) - Width 0.4 0 1.8 -Post Debridement Size (cm) - Depth 0.1 0 0.1 -Total Square Cm 0.16 0 4.50 -Wound/Ulcer Outcome Not Healed Healed- Not Healed Epithelialized -Ulcer Cleansing Rinsed/ Rinsed/ Rinsed/ Irrigated with Irrigated with Irrigated with Saline Saline Saline -Foul Odor after Cleansing No No No -Bioengineered Tissue No No -Bleeding Controlled with Pressure NA Pressure -Treatment Response Procedure Procedure Procedure Tolerated Well Tolerated Well Tolerated Well #3 RT LAT LE -Time 12:13 -Correct Patient Yes -Correct Side, Site, Position Yes -Correct Procedure Yes -Procedure Performed Yes -Type of Procedure Debridement -Clinical Debridement Subcutaneous -Post Debridement Size (cm) - Length 1.0 -Post Debridement Size (cm) - Width 0.7 -Post Debridement Size (cm) - Depth 0.2 -Total Square Cm 0.70 -Wound/Ulcer Outcome Not Healed -Ulcer Cleansing Rinsed/ Irrigated with Saline -Foul Odor after Cleansing No -Bioengineered Tissue No -Bleeding Controlled with Pressure -Treatment Response Procedure Tolerated Well #1 LEFT lower WALLER cluster -Time 12:11 12:13 -Correct Patient Yes Yes -Correct Side, Site, Position Yes Yes -Correct Procedure No Yes -Procedure Performed No Yes -Type of Procedure Debridement -Clinical Debridement Subcutaneous -Post Debridement Size (cm) - Length 0.6 -Post Debridement Size (cm) - Width 2.1 -Post Debridement Size (cm) - Depth 0.1 -Total Square Cm 1.26 -Wound/Ulcer Outcome Healed- Not Healed Epithelialized -Ulcer Cleansing Not Cleansed Rinsed/ Irrigated with Saline -Foul Odor after Cleansing No No -Bioengineered Tissue No -Bleeding Controlled with NA Pressure -Treatment Response Procedure Procedure Tolerated Well Tolerated Well Pain Scale: 0-10 Numeric Is Patient Pain Free? Yes Yes Yes Wound debrided: Left lateral cluster Wound Grade/Stage: Stage II Type of Debridement: Excisional debridement Anesthesia Used: 4% Lidocaine Solution Depth: Down to and including healthy tissue, in the subcutaneous layer Percentage of wound debrided: 100 Instrument Used: 3mm curette Tissue Removed: Slough and devitalized tissue Severity: Fat Layer Exposed Amount of bleeding with debridement: Mild Bleeding Controlled with: Pressure Patient tolerated procedure well - Additional Wound Wound debrided: Left lower extremity ( medial ) Wound Grade/Stage: Stage II Type of Debridement: Excisional debridement Anesthesia Used: 4% Lidocaine Solution Depth: Down to and including healthy tissue, in the subcutaneous layer Percentage of wound debrided: 100 Instrument Used: 3mm curette Tissue Removed: Slough and devitalized tissue Severity: Fat Layer Exposed Amount of bleeding with debridement: Mild Bleeding Controlled with: Pressure Patient tolerated procedure: Patient tolerated procedure well - Additional Wound Wound debrided: Rigfht medial cluster Wound Grade/Stage: Stage II Type of Debridement: Excisional debridement Anesthesia Used: 4% Lidocaine Solution Depth: Down to and including healthy tissue, in the subcutaneous layer Percentage of wound debrided: 100 Instrument Used: 3mm curette Tissue Removed: Slough and devitalized tissue Severity: Fat Layer Exposed Amount of bleeding with debridement: Mild Bleeding Controlled with: Pressure Patient tolerated procedure: Patient tolerated procedure well - Additional Wound Wound debrided: Right lateral lower extremity Wound Grade/Stage: Stage II Type of Debridement: Excisional debridement Anesthesia Used: 4% Lidocaine Solution Depth: Down to and including healthy tissue, in the subcutaneous layer Percentage of wound debrided: 100 Instrument Used: 3mm curette Tissue Removed: Slough and devitalized tissue Severity: Fat Layer Exposed Amount of bleeding with debridement: Mild Bleeding Controlled with: Pressure Patient tolerated procedure: Patient tolerated procedure well Assessment/Plan Active Problems (Last Updated 04/24/18 @ 09:54 by Didi Perez) Ulcer of left lower extremity with fat layer exposed (Chronic) Venous insufficiency of both lower extremities (Chronic) Assessment: Left lower extremity ulcer most likely secondary to venous insufficiency. Diabetes mellitus type 2, poorly controlled. Bilateral lower extremity venous insufficiency. Plan: Non complaint with compression and so returns witth new wounds. Debridement done as documenetd above, procdure was well tolereated. Fibracol to all wounds with adaptic over top. Elevate lower extremity when seated and in bed. 3M wraps for edema management. Continue Follow-up with PCP for optimal blood sugar management. Follow up in 1 week. Advised to call with any questions or concerns. This note was generated with [employer] dictation software. It may contain incorrect words, spelling, and punctuation that were not noted in checking the note before signing.
[2018-05-16 09:38] VITALS: BP 154/67; PULSE 80; RESP 16; TEMP 36.9; BMI 25.4
--- NOTE | 2018-05-16 10:10 | PCM.WC.PN ---
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 Current Visit: Yes Code(s): L97.922 - Non-pressure chronic ulcer of unspecified part of left lower leg with fat layer exposed (2) Venous insufficiency of both lower extremities Status: Chronic Current Visit: Yes Code(s): I87.2 - Venous insufficiency (chronic) (peripheral) (3) Type 2 diabetes mellitus Status: Chronic Current Visit: No Qualifiers: Code(s): E11.9 - Type 2 diabetes mellitus without complications (4) Ulcer of right lower extremity with fat layer exposed Status: Chronic Current Visit: No Code(s): L97.912 - Non-pressure chronic ulcer of unspecified part of right lower leg with fat layer exposed Type of Wound Chief Complaint: Left lower extremity ulcers. Bilateral lower extremity swelling. History of Wound: Ms. Jovel 20-year-old who presents to the wound center due to nonhealing left lower extremity wounds/ulcers. Exact etiology is unknown however patient believes it started in early December. She has had no significant wound care but has covered the wound surfaces with Band-Aids. She has noted increased drainage from the wound of clear substance. She was recently seen by primary care physician and started on Augmentin. She has had no cultures done. She feels well otherwise and denies chills, fever, nausea, vomiting or any change in her bowel habit. She is not very compliant with her diabetic care. She is being seen for Dr. De Santiago in her absence for follow up treatment today. She has been tolerating 3M dressings and promogran. Is tolerating Clindamycin as well. Has a few doses left. Has missed some doses. Denies increased drainage, pain or fever or chills. Progress of Wound: Ms. Jovel had been discharged last week however, she failed to use her compression as direected and now returns with significant bilateral lower extremity selling with mutiole ulcers on both extremities. She deneis any significiant lower extremity pain or feeling of unwell. She also denies chills or fever. 05/15/18: Wound is improving. No new complaints at this time. - Physical Exam Vital Signs Temp Pulse Resp BP 98.4 F 80 16 154/67 H 05/16/18 09:38 05/16/18 09:38 05/16/18 09:38 05/16/18 09:38 General: Alert, Oriented x3, Cooperative, No apparent distress HEENT: Atraumatic Oral: Moist Mucosa Neck: Supple Lungs: Normal air movement Cardiovascular: Regular rate Abdomen: Non Tender Extremities: No cyanosis, Edema Skin: Ulcer/ Wound Wound Measurements and Assessment WC - Nurse 1 - General Ulcer Measurement Start: 04/24/18 11:39 Freq: Status: Active Protocol: Activity Type Activity Date Activity User E-Sign Co-Sign Detail Recorded Client Recorded Date Recorded By Document 05/16/18 09:38 [facility] [id number] 05/16/18 09:53 [facility] 05/16/18 09:38 Wound Center Nurse 1 [Ulcer Assessment] #6 right medial le cluster -Combined with other wound No -Current Size (cm) - Length 0.6 -Current Size (cm) - Width 0.8 -Current Size (cm) - Depth 0.1 -Total Square Cm 0.48 -Photo Taken No -Epithelialization Medium 34-66% -Tunneling No -Undermining/Tunneling No -Circular Undermining No -Exudate Amt None Present (0 %) -Wound Margin Distinct, Outline Attached -Granulation Amt None Present (0 %) -Slough/Fibrin Yes -Necrosis Amt Large (67-100%) -Necrotic Tissue Type Adherent Slough -Structure Exposed N/A -Texture (Jessie-wound Skin Appearance) Scarring -Moisture (Jessie-wound Skin Appearance Dry/Scaly ) -Color (Jessie-wound Skin Appearance) Erythema -Temperature (Jessie-wound Skin No Abnormality Appearance) (Pt Warm) -Tenderness on Palpation (Jessie-wound No Skin Appearance) -Ulcer Cleansing Wound Cleanser -Foul Odor after Cleansing No -Anesthetic Used 4% Lidocaine Solution #5 LEFT MEDIAL. CALF -Combined with other wound No -Current Size (cm) - Length 2 -Current Size (cm) - Width 1.5 -Current Size (cm) - Depth 0.1 -Total Square Cm 3.0 -Photo Taken No -Epithelialization Small 1-33% -Tunneling No -Undermining/Tunneling No -Circular Undermining No -Exudate Amt Small (1-33%) -Exudate Type Serosanguineous -Wound Margin Distinct, Outline Attached -Granulation Amt Medium (34-66%) -Granulation Quality Red -Slough/Fibrin Yes -Necrosis Amt Medium (34-66%) -Necrotic Tissue Type Adherent Slough -Texture (Jessie-wound Skin Appearance) Scarring -Moisture (Jessie-wound Skin Appearance Dry/Scaly ) -Color (Jessie-wound Skin Appearance) Erythema -Temperature (Jessie-wound Skin No Abnormality Appearance) (Pt Warm) -Tenderness on Palpation (Jessie-wound No Skin Appearance) -Ulcer Cleansing Wound Cleanser -Foul Odor after Cleansing No -Anesthetic Used 4% Lidocaine Solution #7 RT LAT LE -Combined with other wound No -Current Size (cm) - Length 0.7 -Current Size (cm) - Width 0.5 -Current Size (cm) - Depth 0.2 -Total Square Cm 0.35 -Photo Taken No -Epithelialization None Present -Tunneling No -Undermining/Tunneling No -Circular Undermining No -Exudate Amt Small (1-33%) -Exudate Type Serosanguineous -Wound Margin Distinct, Outline Attached -Granulation Amt Small (1-33%) -Granulation Quality Red -Slough/Fibrin Yes -Necrosis Amt Large (67-100%) -Necrotic Tissue Type Adherent Slough -Texture (Jessie-wound Skin Appearance) Scarring -Moisture (Jessie-wound Skin Appearance Dry/Scaly ) -Color (Jessie-wound Skin Appearance) Erythema -Temperature (Jessie-wound Skin No Abnormality Appearance) (Pt Warm) -Tenderness on Palpation (Jessie-wound No Skin Appearance) -Ulcer Cleansing Wound Cleanser -Foul Odor after Cleansing No -Anesthetic Used 4% Lidocaine Solution #1 LEFT lower WALLER cluster -Combined with other wound No -Current Size (cm) - Length 0.1 -Current Size (cm) - Width 0.1 -Current Size (cm) - Depth 0.1 -Total Square Cm 0.01 -Photo Taken No -Epithelialization Large 67-100% -Tunneling No -Undermining/Tunneling No -Circular Undermining No -Texture (Jessie-wound Skin Appearance) Scarring -Moisture (Jessie-wound Skin Appearance Dry/Scaly ) -Temperature (Jessie-wound Skin No Abnormality Appearance) (Pt Warm) -Tenderness on Palpation (Jessie-wound No Skin Appearance) -Ulcer Cleansing Wound Cleanser -Foul Odor after Cleansing No -Anesthetic Used 4% Lidocaine Solution [Edema Assessment] -Lower Limb Edema Present Yes -Right Calf (cm) 35.2 -Right Ankle (cm) 24 -Left Calf (cm) 34.8 -Left Ankle (cm) 24.7 WC - Nurse 2 - General Ulcer CM Notes Start: 04/24/18 11:39 Freq: Status: Active Protocol: Activity Type Activity Date Activity User E-Sign Co-Sign Detail Recorded Client Recorded Date Recorded By Document 05/16/18 10:05 MW [id number] 05/16/18 10:09 MW 05/16/18 10:05 Wound Center Nurse 2 [Procedure/Treatment] #6 right medial le cluster -Time 10:06 -Correct Patient Yes -Correct Side, Site, Position Yes -Correct Procedure Yes -Procedure Performed Yes -Type of Procedure Debridement -Clinical Debridement Subcutaneous -Post Debridement Size (cm) - Length 0.4 -Post Debridement Size (cm) - Width 0.4 -Post Debridement Size (cm) - Depth 0.1 -Total Square Cm 0.16 -Wound/Ulcer Outcome Not Healed -Ulcer Cleansing Rinsed/ Irrigated with Saline -Foul Odor after Cleansing No -Bioengineered Tissue No -Bleeding Controlled with Pressure -Treatment Response Procedure Tolerated Well #5 LEFT MEDIAL. CALF -Time 10:06 -Correct Patient Yes -Correct Side, Site, Position Yes -Correct Procedure Yes -Procedure Performed Yes -Type of Procedure Debridement -Clinical Debridement Subcutaneous -Post Debridement Size (cm) - Length 2.0 -Post Debridement Size (cm) - Width 1.3 -Post Debridement Size (cm) - Depth 0.1 -Total Square Cm 2.60 -Wound/Ulcer Outcome Not Healed -Ulcer Cleansing Rinsed/ Irrigated with Saline -Foul Odor after Cleansing No -Bioengineered Tissue No -Bleeding Controlled with Pressure -Treatment Response Procedure Tolerated Well #7 RT LAT LE -Time 10:07 -Correct Patient Yes -Correct Side, Site, Position Yes -Correct Procedure Yes -Procedure Performed Yes -Type of Procedure Debridement -Clinical Debridement Subcutaneous -Post Debridement Size (cm) - Length 0.6 -Post Debridement Size (cm) - Width 0.5 -Post Debridement Size (cm) - Depth 0.2 -Total Square Cm 0.30 -Wound/Ulcer Outcome Not Healed -Ulcer Cleansing Rinsed/ Irrigated with Saline -Foul Odor after Cleansing No -Bioengineered Tissue No -Bleeding Controlled with Pressure -Treatment Response Procedure Tolerated Well #1 LEFT lower WALLER cluster -Time 10:07 -Correct Patient Yes -Correct Side, Site, Position Yes -Correct Procedure Yes -Procedure Performed No -Post Debridement Size (cm) - Length 0 -Post Debridement Size (cm) - Width 0 -Post Debridement Size (cm) - Depth 0 -Total Square Cm 0 -Wound/Ulcer Outcome Healed- Epithelialized [See Physician Procedure note for Specifics] Pain Scale: 0-10 Numeric [Pain] -Is Patient Pain Free? Yes Musculoskeletal: No Muscle Wasting Neurological: Cranial nerves II-XII grossly intact Psych/Mental Status: Normal Affect Debridement Note Post-Debridement Measurements/Treatment WC - Nurse 2 - General Ulcer CM Notes Start: 04/24/18 11:39 Freq: Status: Active Protocol: Activity Type Activity Date Activity User E-Sign Co-Sign Detail Recorded Client Recorded Date Recorded By Document 04/24/18 12:11 MW [id number] 04/24/18 12:12 MW Document 05/01/18 10:44 MW [id number] 05/01/18 10:50 MW Document 05/09/18 12:13 MW [id number] 05/09/18 12:18 MW Document 05/16/18 10:05 MW [id number] 05/16/18 10:09 MW 04/24/18 05/01/18 05/09/18 12:11 10:44 12:13 Wound Center Nurse 2 #6 right medial le cluster -Time 12:13 -Correct Patient Yes -Correct Side, Site, Position Yes -Correct Procedure Yes -Procedure Performed Yes -Type of Procedure Debridement -Clinical Debridement Subcutaneous -Post Debridement Size (cm) - Length 4.5 -Post Debridement Size (cm) - Width 1.0 -Post Debridement Size (cm) - Depth 0.1 -Total Square Cm 4.50 -Wound/Ulcer Outcome Not Healed -Ulcer Cleansing Rinsed/ Irrigated with Saline -Foul Odor after Cleansing No -Bioengineered Tissue No -Bleeding Controlled with Pressure -Treatment Response Procedure Tolerated Well #5 LEFT MEDIAL. CALF -Time 12:11 10:48 12:13 -Correct Patient Yes Yes Yes -Correct Side, Site, Position Yes Yes Yes -Correct Procedure Yes No Yes -Procedure Performed Yes No Yes -Type of Procedure Debridement Debridement -Clinical Debridement Subcutaneous Subcutaneous -Post Debridement Size (cm) - Length 0.4 0 2.5 -Post Debridement Size (cm) - Width 0.4 0 1.8 -Post Debridement Size (cm) - Depth 0.1 0 0.1 -Total Square Cm 0.16 0 4.50 -Wound/Ulcer Outcome Not Healed Healed- Not Healed Epithelialized -Ulcer Cleansing Rinsed/ Rinsed/ Rinsed/ Irrigated with Irrigated with Irrigated with Saline Saline Saline -Foul Odor after Cleansing No No No -Bioengineered Tissue No No -Bleeding Controlled with Pressure NA Pressure -Treatment Response Procedure Procedure Procedure Tolerated Well Tolerated Well Tolerated Well #7 RT LAT LE -Time 12:13 -Correct Patient Yes -Correct Side, Site, Position Yes -Correct Procedure Yes -Procedure Performed Yes -Type of Procedure Debridement -Clinical Debridement Subcutaneous -Post Debridement Size (cm) - Length 1.0 -Post Debridement Size (cm) - Width 0.7 -Post Debridement Size (cm) - Depth 0.2 -Total Square Cm 0.70 -Wound/Ulcer Outcome Not Healed -Ulcer Cleansing Rinsed/ Irrigated with Saline -Foul Odor after Cleansing No -Bioengineered Tissue No -Bleeding Controlled with Pressure -Treatment Response Procedure Tolerated Well #1 LEFT lower WALLER cluster -Time 12:11 12:13 -Correct Patient Yes Yes -Correct Side, Site, Position Yes Yes -Correct Procedure No Yes -Procedure Performed No Yes -Type of Procedure Debridement -Clinical Debridement Subcutaneous -Post Debridement Size (cm) - Length 0.6 -Post Debridement Size (cm) - Width 2.1 -Post Debridement Size (cm) - Depth 0.1 -Total Square Cm 1.26 -Wound/Ulcer Outcome Healed- Not Healed Epithelialized -Ulcer Cleansing Not Cleansed Rinsed/ Irrigated with Saline -Foul Odor after Cleansing No No -Bioengineered Tissue No -Bleeding Controlled with NA Pressure -Treatment Response Procedure Procedure Tolerated Well Tolerated Well Pain Scale: 0-10 Numeric Is Patient Pain Free? Yes Yes Yes 05/16/18 10:05 Wound Center Nurse 2 #6 right medial le cluster -Time 10:06 -Correct Patient Yes -Correct Side, Site, Position Yes -Correct Procedure Yes -Procedure Performed Yes -Type of Procedure Debridement -Clinical Debridement Subcutaneous -Post Debridement Size (cm) - Length 0.4 -Post Debridement Size (cm) - Width 0.4 -Post Debridement Size (cm) - Depth 0.1 -Total Square Cm 0.16 -Wound/Ulcer Outcome Not Healed -Ulcer Cleansing Rinsed/ Irrigated with Saline -Foul Odor after Cleansing No -Bioengineered Tissue No -Bleeding Controlled with Pressure -Treatment Response Procedure Tolerated Well #5 LEFT MEDIAL. CALF -Time 10:06 -Correct Patient Yes -Correct Side, Site, Position Yes -Correct Procedure Yes -Procedure Performed Yes -Type of Procedure Debridement -Clinical Debridement Subcutaneous -Post Debridement Size (cm) - Length 2.0 -Post Debridement Size (cm) - Width 1.3 -Post Debridement Size (cm) - Depth 0.1 -Total Square Cm 2.60 -Wound/Ulcer Outcome Not Healed -Ulcer Cleansing Rinsed/ Irrigated with Saline -Foul Odor after Cleansing No -Bioengineered Tissue No -Bleeding Controlled with Pressure -Treatment Response Procedure Tolerated Well #7 RT LAT LE -Time 10:07 -Correct Patient Yes -Correct Side, Site, Position Yes -Correct Procedure Yes -Procedure Performed Yes -Type of Procedure Debridement -Clinical Debridement Subcutaneous -Post Debridement Size (cm) - Length 0.6 -Post Debridement Size (cm) - Width 0.5 -Post Debridement Size (cm) - Depth 0.2 -Total Square Cm 0.30 -Wound/Ulcer Outcome Not Healed -Ulcer Cleansing Rinsed/ Irrigated with Saline -Foul Odor after Cleansing No -Bioengineered Tissue No -Bleeding Controlled with Pressure -Treatment Response Procedure Tolerated Well #1 LEFT lower WALLER cluster -Time 10:07 -Correct Patient Yes -Correct Side, Site, Position Yes -Correct Procedure Yes -Procedure Performed No -Type of Procedure -Clinical Debridement -Post Debridement Size (cm) - Length 0 -Post Debridement Size (cm) - Width 0 -Post Debridement Size (cm) - Depth 0 -Total Square Cm 0 -Wound/Ulcer Outcome Healed- Epithelialized -Ulcer Cleansing -Foul Odor after Cleansing -Bioengineered Tissue -Bleeding Controlled with -Treatment Response Pain Scale: 0-10 Numeric Is Patient Pain Free? Yes Wound debrided: Right lower extremity medial Wound Grade/Stage: Stage II Type of Debridement: Excisional debridement Anesthesia Used: 4% Lidocaine Solution Depth: Down to and including healthy tissue, in the subcutaneous layer Percentage of wound debrided: 100 Instrument Used: 3mm curette Tissue Removed: Slough and devitalized tissue Severity: Fat Layer Exposed Amount of bleeding with debridement: Mild Bleeding Controlled with: Pressure Patient tolerated procedure well - Additional Wound Wound debrided: Right lower extremity lateral Wound Grade/Stage: Stage II Type of Debridement: Excisional debridement Anesthesia Used: 4% Lidocaine Solution Depth: Down to and including healthy tissue, in the subcutaneous layer Percentage of wound debrided: 100 Instrument Used: 3mm curette Tissue Removed: Slough and devitalized tissue Severity: Fat Layer Exposed Amount of bleeding with debridement: Mild Bleeding Controlled with: Pressure Patient tolerated procedure: Patient tolerated procedure well - Additional Wound Wound debrided: Left lower extremity medial Wound Grade/Stage: Stage II Type of Debridement: Excisional debridement Anesthesia Used: 4% Lidocaine Solution Depth: Down to and including healthy tissue, in the subcutaneous layer Percentage of wound debrided: 100 Instrument Used: 3mm curette Tissue Removed: Slough and devitalized tissue Severity: Fat Layer Exposed Amount of bleeding with debridement: Mild Bleeding Controlled with: Pressure Patient tolerated procedure: Patient tolerated procedure well Assessment/Plan Active Problems (Last Updated 04/24/18 @ 09:54 by Didi Perez) Ulcer of left lower extremity with fat layer exposed (Chronic) Venous insufficiency of both lower extremities (Chronic) Assessment: Left lower extremity ulcer most likely secondary to venous insufficiency. Diabetes mellitus type 2, poorly controlled. Bilateral lower extremity venous insufficiency. Plan: Debridement done as documenetd above, procdure was well tolereated. Continue Fibracol to all wounds with adaptic over top. Elevate lower extremity when seated and in bed. 3M wraps for edema management. Continue Follow-up with PCP for optimal blood sugar management. Follow up in 1 week. Advised to call with any questions or concerns. This note was generated with [employer] software. It may contain incorrect words, spelling, and punctuation that were not noted in checking the note before signing.
--- NOTE | 2018-05-16 10:14 | PN.PCM_ITS ---
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 Current Visit: Yes Code(s): L97.922 - Non-pressure chronic ulcer of unspecified part of left lower leg with fat layer exposed (2) Venous insufficiency of both lower extremities Status: Chronic Current Visit: Yes Code(s): I87.2 - Venous insufficiency (chronic) (peripheral) (3) Type 2 diabetes mellitus Status: Chronic Current Visit: No Qualifiers: Code(s): E11.9 - Type 2 diabetes mellitus without complications (4) Ulcer of right lower extremity with fat layer exposed Status: Chronic Current Visit: No Code(s): L97.912 - Non-pressure chronic ulcer of unspecified part of right lower leg with fat layer exposed Type of Wound Chief Complaint: Left lower extremity ulcers. Bilateral lower extremity swelling. History of Wound: Ms. Jovel 20-year-old who presents to the wound center due to nonhealing left lower extremity wounds/ulcers. Exact etiology is unknown however patient believes it started in early December. She has had no significant wound care but has covered the wound surfaces with Band-Aids. She has noted increased drainage from the wound of clear substance. She was recently seen by primary care physician and started on Augmentin. She has had no cultures done. She feels well otherwise and denies chills, fever, nausea, vomiting or any change in her bowel habit. She is not very compliant with her diabetic care. She is being seen for Dr. De Santiago in her absence for follow up treatment today. She has been tolerating 3M dressings and promogran. Is tolerating Clindamycin as well. Has a few doses left. Has missed some doses. Denies increased drainage, pain or fever or chills. Progress of Wound: Ms. Jovel had been discharged last week however, she failed to use her compression as direected and now returns with significant bilateral lower extremity selling with mutiole ulcers on both extremities. She deneis any significiant lower extremity pain or feeling of unwell. She also denies chills or fever. 05/15/18: Wound is improving. No new complaints at this time. - Physical Exam Vital Signs Temp Pulse Resp BP 98.4 F 80 16 154/67 H 05/16/18 09:38 05/16/18 09:38 05/16/18 09:38 05/16/18 09:38 General: Alert, Oriented x3, Cooperative, No apparent distress HEENT: Atraumatic Oral: Moist Mucosa Neck: Supple Lungs: Normal air movement Cardiovascular: Regular rate Abdomen: Non Tender Extremities: No cyanosis, Edema Skin: Ulcer/ Wound Wound Measurements and Assessment WC - Nurse 1 - General Ulcer Measurement Start: 04/24/18 11:39 Freq: Status: Active Protocol: Activity Type Activity Date Activity User E-Sign Co-Sign Detail Recorded Client Recorded Date Recorded By Document 05/16/18 09:38 [facility] [id number] 05/16/18 09:53 [facility] 05/16/18 09:38 Wound Center Nurse 1 [Ulcer Assessment] #6 right medial le cluster -Combined with other wound No -Current Size (cm) - Length 0.6 -Current Size (cm) - Width 0.8 -Current Size (cm) - Depth 0.1 -Total Square Cm 0.48 -Photo Taken No -Epithelialization Medium 34-66% -Tunneling No -Undermining/Tunneling No -Circular Undermining No -Exudate Amt None Present (0 %) -Wound Margin Distinct, Outline Attached -Granulation Amt None Present (0 %) -Slough/Fibrin Yes -Necrosis Amt Large (67-100%) -Necrotic Tissue Type Adherent Slough -Structure Exposed N/A -Texture (Jessie-wound Skin Appearance) Scarring -Moisture (Jessie-wound Skin Appearance Dry/Scaly ) -Color (Jessie-wound Skin Appearance) Erythema -Temperature (Jessie-wound Skin No Abnormality Appearance) (Pt Warm) -Tenderness on Palpation (Jessie-wound No Skin Appearance) -Ulcer Cleansing Wound Cleanser -Foul Odor after Cleansing No -Anesthetic Used 4% Lidocaine Solution #5 LEFT MEDIAL. CALF -Combined with other wound No -Current Size (cm) - Length 2 -Current Size (cm) - Width 1.5 -Current Size (cm) - Depth 0.1 -Total Square Cm 3.0 -Photo Taken No -Epithelialization Small 1-33% -Tunneling No -Undermining/Tunneling No -Circular Undermining No -Exudate Amt Small (1-33%) -Exudate Type Serosanguineous -Wound Margin Distinct, Outline Attached -Granulation Amt Medium (34-66%) -Granulation Quality Red -Slough/Fibrin Yes -Necrosis Amt Medium (34-66%) -Necrotic Tissue Type Adherent Slough -Texture (Jessie-wound Skin Appearance) Scarring -Moisture (Jessie-wound Skin Appearance Dry/Scaly ) -Color (Jessie-wound Skin Appearance) Erythema -Temperature (Jessie-wound Skin No Abnormality Appearance) (Pt Warm) -Tenderness on Palpation (Jessie-wound No Skin Appearance) -Ulcer Cleansing Wound Cleanser -Foul Odor after Cleansing No -Anesthetic Used 4% Lidocaine Solution #7 RT LAT LE -Combined with other wound No -Current Size (cm) - Length 0.7 -Current Size (cm) - Width 0.5 -Current Size (cm) - Depth 0.2 -Total Square Cm 0.35 -Photo Taken No -Epithelialization None Present -Tunneling No -Undermining/Tunneling No -Circular Undermining No -Exudate Amt Small (1-33%) -Exudate Type Serosanguineous -Wound Margin Distinct, Outline Attached -Granulation Amt Small (1-33%) -Granulation Quality Red -Slough/Fibrin Yes -Necrosis Amt Large (67-100%) -Necrotic Tissue Type Adherent Slough -Texture (Jessie-wound Skin Appearance) Scarring -Moisture (Jessie-wound Skin Appearance Dry/Scaly ) -Color (Jessie-wound Skin Appearance) Erythema -Temperature (Jessie-wound Skin No Abnormality Appearance) (Pt Warm) -Tenderness on Palpation (Jessie-wound No Skin Appearance) -Ulcer Cleansing Wound Cleanser -Foul Odor after Cleansing No -Anesthetic Used 4% Lidocaine Solution #1 LEFT lower WALLER cluster -Combined with other wound No -Current Size (cm) - Length 0.1 -Current Size (cm) - Width 0.1 -Current Size (cm) - Depth 0.1 -Total Square Cm 0.01 -Photo Taken No -Epithelialization Large 67-100% -Tunneling No -Undermining/Tunneling No -Circular Undermining No -Texture (Jessie-wound Skin Appearance) Scarring -Moisture (Jessie-wound Skin Appearance Dry/Scaly ) -Temperature (Jessie-wound Skin No Abnormality Appearance) (Pt Warm) -Tenderness on Palpation (Jessie-wound No Skin Appearance) -Ulcer Cleansing Wound Cleanser -Foul Odor after Cleansing No -Anesthetic Used 4% Lidocaine Solution [Edema Assessment] -Lower Limb Edema Present Yes -Right Calf (cm) 35.2 -Right Ankle (cm) 24 -Left Calf (cm) 34.8 -Left Ankle (cm) 24.7 WC - Nurse 2 - General Ulcer CM Notes Start: 04/24/18 11:39 Freq: Status: Active Protocol: Activity Type Activity Date Activity User E-Sign Co-Sign Detail Recorded Client Recorded Date Recorded By Document 05/16/18 10:05 MW [id number] 05/16/18 10:09 MW 05/16/18 10:05 Wound Center Nurse 2 [Procedure/Treatment] #6 right medial le cluster -Time 10:06 -Correct Patient Yes -Correct Side, Site, Position Yes -Correct Procedure Yes -Procedure Performed Yes -Type of Procedure Debridement -Clinical Debridement Subcutaneous -Post Debridement Size (cm) - Length 0.4 -Post Debridement Size (cm) - Width 0.4 -Post Debridement Size (cm) - Depth 0.1 -Total Square Cm 0.16 -Wound/Ulcer Outcome Not Healed -Ulcer Cleansing Rinsed/ Irrigated with Saline -Foul Odor after Cleansing No -Bioengineered Tissue No -Bleeding Controlled with Pressure -Treatment Response Procedure Tolerated Well #5 LEFT MEDIAL. CALF -Time 10:06 -Correct Patient Yes -Correct Side, Site, Position Yes -Correct Procedure Yes -Procedure Performed Yes -Type of Procedure Debridement -Clinical Debridement Subcutaneous -Post Debridement Size (cm) - Length 2.0 -Post Debridement Size (cm) - Width 1.3 -Post Debridement Size (cm) - Depth 0.1 -Total Square Cm 2.60 -Wound/Ulcer Outcome Not Healed -Ulcer Cleansing Rinsed/ Irrigated with Saline -Foul Odor after Cleansing No -Bioengineered Tissue No -Bleeding Controlled with Pressure -Treatment Response Procedure Tolerated Well #7 RT LAT LE -Time 10:07 -Correct Patient Yes -Correct Side, Site, Position Yes -Correct Procedure Yes -Procedure Performed Yes -Type of Procedure Debridement -Clinical Debridement Subcutaneous -Post Debridement Size (cm) - Length 0.6 -Post Debridement Size (cm) - Width 0.5 -Post Debridement Size (cm) - Depth 0.2 -Total Square Cm 0.30 -Wound/Ulcer Outcome Not Healed -Ulcer Cleansing Rinsed/ Irrigated with Saline -Foul Odor after Cleansing No -Bioengineered Tissue No -Bleeding Controlled with Pressure -Treatment Response Procedure Tolerated Well #1 LEFT lower WALLER cluster -Time 10:07 -Correct Patient Yes -Correct Side, Site, Position Yes -Correct Procedure Yes -Procedure Performed No -Post Debridement Size (cm) - Length 0 -Post Debridement Size (cm) - Width 0 -Post Debridement Size (cm) - Depth 0 -Total Square Cm 0 -Wound/Ulcer Outcome Healed- Epithelialized [See Physician Procedure note for Specifics] Pain Scale: 0-10 Numeric [Pain] -Is Patient Pain Free? Yes Musculoskeletal: No Muscle Wasting Neurological: Cranial nerves II-XII grossly intact Psych/Mental Status: Normal Affect Debridement Note Post-Debridement Measurements/Treatment WC - Nurse 2 - General Ulcer CM Notes Start: 04/24/18 11:39 Freq: Status: Active Protocol: Activity Type Activity Date Activity User E-Sign Co-Sign Detail Recorded Client Recorded Date Recorded By Document 04/24/18 12:11 MW [id number] 04/24/18 12:12 MW Document 05/01/18 10:44 MW [id number] 05/01/18 10:50 MW Document 05/09/18 12:13 MW [id number] 05/09/18 12:18 MW Document 05/16/18 10:05 MW [id number] 05/16/18 10:09 MW 04/24/18 05/01/18 05/09/18 12:11 10:44 12:13 Wound Center Nurse 2 #6 right medial le cluster -Time 12:13 -Correct Patient Yes -Correct Side, Site, Position Yes -Correct Procedure Yes -Procedure Performed Yes -Type of Procedure Debridement -Clinical Debridement Subcutaneous -Post Debridement Size (cm) - Length 4.5 -Post Debridement Size (cm) - Width 1.0 -Post Debridement Size (cm) - Depth 0.1 -Total Square Cm 4.50 -Wound/Ulcer Outcome Not Healed -Ulcer Cleansing Rinsed/ Irrigated with Saline -Foul Odor after Cleansing No -Bioengineered Tissue No -Bleeding Controlled with Pressure -Treatment Response Procedure Tolerated Well #5 LEFT MEDIAL. CALF -Time 12:11 10:48 12:13 -Correct Patient Yes Yes Yes -Correct Side, Site, Position Yes Yes Yes -Correct Procedure Yes No Yes -Procedure Performed Yes No Yes -Type of Procedure Debridement Debridement -Clinical Debridement Subcutaneous Subcutaneous -Post Debridement Size (cm) - Length 0.4 0 2.5 -Post Debridement Size (cm) - Width 0.4 0 1.8 -Post Debridement Size (cm) - Depth 0.1 0 0.1 -Total Square Cm 0.16 0 4.50 -Wound/Ulcer Outcome Not Healed Healed- Not Healed Epithelialized -Ulcer Cleansing Rinsed/ Rinsed/ Rinsed/ Irrigated with Irrigated with Irrigated with Saline Saline Saline -Foul Odor after Cleansing No No No -Bioengineered Tissue No No -Bleeding Controlled with Pressure NA Pressure -Treatment Response Procedure Procedure Procedure Tolerated Well Tolerated Well Tolerated Well #7 RT LAT LE -Time 12:13 -Correct Patient Yes -Correct Side, Site, Position Yes -Correct Procedure Yes -Procedure Performed Yes -Type of Procedure Debridement -Clinical Debridement Subcutaneous -Post Debridement Size (cm) - Length 1.0 -Post Debridement Size (cm) - Width 0.7 -Post Debridement Size (cm) - Depth 0.2 -Total Square Cm 0.70 -Wound/Ulcer Outcome Not Healed -Ulcer Cleansing Rinsed/ Irrigated with Saline -Foul Odor after Cleansing No -Bioengineered Tissue No -Bleeding Controlled with Pressure -Treatment Response Procedure Tolerated Well #1 LEFT lower WALLER cluster -Time 12:11 12:13 -Correct Patient Yes Yes -Correct Side, Site, Position Yes Yes -Correct Procedure No Yes -Procedure Performed No Yes -Type of Procedure Debridement -Clinical Debridement Subcutaneous -Post Debridement Size (cm) - Length 0.6 -Post Debridement Size (cm) - Width 2.1 -Post Debridement Size (cm) - Depth 0.1 -Total Square Cm 1.26 -Wound/Ulcer Outcome Healed- Not Healed Epithelialized -Ulcer Cleansing Not Cleansed Rinsed/ Irrigated with Saline -Foul Odor after Cleansing No No -Bioengineered Tissue No -Bleeding Controlled with NA Pressure -Treatment Response Procedure Procedure Tolerated Well Tolerated Well Pain Scale: 0-10 Numeric Is Patient Pain Free? Yes Yes Yes 05/16/18 10:05 Wound Center Nurse 2 #6 right medial le cluster -Time 10:06 -Correct Patient Yes -Correct Side, Site, Position Yes -Correct Procedure Yes -Procedure Performed Yes -Type of Procedure Debridement -Clinical Debridement Subcutaneous -Post Debridement Size (cm) - Length 0.4 -Post Debridement Size (cm) - Width 0.4 -Post Debridement Size (cm) - Depth 0.1 -Total Square Cm 0.16 -Wound/Ulcer Outcome Not Healed -Ulcer Cleansing Rinsed/ Irrigated with Saline -Foul Odor after Cleansing No -Bioengineered Tissue No -Bleeding Controlled with Pressure -Treatment Response Procedure Tolerated Well #5 LEFT MEDIAL. CALF -Time 10:06 -Correct Patient Yes -Correct Side, Site, Position Yes -Correct Procedure Yes -Procedure Performed Yes -Type of Procedure Debridement -Clinical Debridement Subcutaneous -Post Debridement Size (cm) - Length 2.0 -Post Debridement Size (cm) - Width 1.3 -Post Debridement Size (cm) - Depth 0.1 -Total Square Cm 2.60 -Wound/Ulcer Outcome Not Healed -Ulcer Cleansing Rinsed/ Irrigated with Saline -Foul Odor after Cleansing No -Bioengineered Tissue No -Bleeding Controlled with Pressure -Treatment Response Procedure Tolerated Well #7 RT LAT LE -Time 10:07 -Correct Patient Yes -Correct Side, Site, Position Yes -Correct Procedure Yes -Procedure Performed Yes -Type of Procedure Debridement -Clinical Debridement Subcutaneous -Post Debridement Size (cm) - Length 0.6 -Post Debridement Size (cm) - Width 0.5 -Post Debridement Size (cm) - Depth 0.2 -Total Square Cm 0.30 -Wound/Ulcer Outcome Not Healed -Ulcer Cleansing Rinsed/ Irrigated with Saline -Foul Odor after Cleansing No -Bioengineered Tissue No -Bleeding Controlled with Pressure -Treatment Response Procedure Tolerated Well #1 LEFT lower WALLER cluster -Time 10:07 -Correct Patient Yes -Correct Side, Site, Position Yes -Correct Procedure Yes -Procedure Performed No -Type of Procedure -Clinical Debridement -Post Debridement Size (cm) - Length 0 -Post Debridement Size (cm) - Width 0 -Post Debridement Size (cm) - Depth 0 -Total Square Cm 0 -Wound/Ulcer Outcome Healed- Epithelialized -Ulcer Cleansing -Foul Odor after Cleansing -Bioengineered Tissue -Bleeding Controlled with -Treatment Response Pain Scale: 0-10 Numeric Is Patient Pain Free? Yes Wound debrided: Right lower extremity medial Wound Grade/Stage: Stage II Type of Debridement: Excisional debridement Anesthesia Used: 4% Lidocaine Solution Depth: Down to and including healthy tissue, in the subcutaneous layer Percentage of wound debrided: 100 Instrument Used: 3mm curette Tissue Removed: Slough and devitalized tissue Severity: Fat Layer Exposed Amount of bleeding with debridement: Mild Bleeding Controlled with: Pressure Patient tolerated procedure well - Additional Wound Wound debrided: Right lower extremity lateral Wound Grade/Stage: Stage II Type of Debridement: Excisional debridement Anesthesia Used: 4% Lidocaine Solution Depth: Down to and including healthy tissue, in the subcutaneous layer Percentage of wound debrided: 100 Instrument Used: 3mm curette Tissue Removed: Slough and devitalized tissue Severity: Fat Layer Exposed Amount of bleeding with debridement: Mild Bleeding Controlled with: Pressure Patient tolerated procedure: Patient tolerated procedure well - Additional Wound Wound debrided: Left lower extremity medial Wound Grade/Stage: Stage II Type of Debridement: Excisional debridement Anesthesia Used: 4% Lidocaine Solution Depth: Down to and including healthy tissue, in the subcutaneous layer Percentage of wound debrided: 100 Instrument Used: 3mm curette Tissue Removed: Slough and devitalized tissue Severity: Fat Layer Exposed Amount of bleeding with debridement: Mild Bleeding Controlled with: Pressure Patient tolerated procedure: Patient tolerated procedure well Assessment/Plan Active Problems (Last Updated 04/24/18 @ 09:54 by Didi Perez) Ulcer of left lower extremity with fat layer exposed (Chronic) Venous insufficiency of both lower extremities (Chronic) Assessment: Left lower extremity ulcer most likely secondary to venous insufficiency. Diabetes mellitus type 2, poorly controlled. Bilateral lower extremity venous insufficiency. Plan: Debridement done as documenetd above, procdure was well tolereated. Continue Fibracol to all wounds with adaptic over top. Elevate lower extremity when seated and in bed. 3M wraps for edema management. Continue Follow-up with PCP for optimal blood sugar management. Follow up in 1 week. Advised to call with any questions or concerns. This note was generated with [employer] software. It may contain incorrect words, spelling, and punctuation that were not noted in checking the note before signing.
== END 2018-05-19 23:59 ==
LOC: WC 09:30
PROVIDERS: Family Provider Family Medicine; PCP Family Medicine; Visit Provider Internal Medicine
DX: E11.622 Type 2 diabetes mellitus with other skin ulcer (principal); I87.2 Venous insufficiency (chronic) (peripheral); M79.89 Other specified soft tissue disorders; E11.65 Type 2 diabetes mellitus with hyperglycemia; L97.222 Non-pressure chronic ulcer of left calf with fat layer exposed
CPT/HCPCS: 11042; 29581; 99213; G0463

== ENCOUNTER 2018-05-23 18:31 | Emergency (ER) | payer MEDICARE, OTHER, SELFPAY ==
[2018-05-23 18:32] VITALS: BP 131/66; PULSE 86; RESP 19; TEMP 36.6; O2SAT 97; BMI 25.4
--- NOTE | 2018-05-23 18:43 | ED.RN ---
PT STATES THAT IT IS THAT PILL, DR EVEN SAYS IT WILL MAKE MY LEGS AND BACK WEAK. PT DOES NOT KNOW THE NAME OF THE MEDICATION.
--- NOTE | 2018-05-23 19:06 | CT_ITS ---
STUDY: CT PELVIS WITHOUT CONTRAST REASON FOR EXAM: Female, 83 years old. Pelvic pain after fall. RADIATION DOSAGE (If Supplied By Facility): CTDIvol = ( 22.78 ) mGy, DLP = ( 602.76 ) mGycm TECHNIQUE: Transaxial imaging of the pelvis was performed without oral contrast, and without intravenous administration of contrast material. Multiplanar coronal and sagittal images were reformatted. Individualized dose optimization techniques were used for this CT. COMPARISON: Prior comparable comparison studies are not available for review at this time. FINDINGS: Normal urinary bladder. There is no evidence for dilated bowel, ascites or pneumoperitoneum. A large amount of stool is visible on the colon suggesting possible fecal stasis. There is no pelvic fluid. There is no pelvic mass lesion or lymphadenopathy. There is diffuse atherosclerotic calcification of the pelvic arteries with elongation and tortuosity. There appears to be some edema within the subcutaneous soft tissues suggesting possible anasarca. The bones are osteopenic. The superior and inferior pubic rami are within normal limits. The sacrum has a normal appearance. The iliac wings have a grossly normal appearance. There is narrowing of L4-5 and L5-S1 disc spaces and vacuum disc phenomenon. CT/Pelvis without IV Contrast IMPRESSION: 1. Osteopenia. 2. 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 3. No definite evidence for acute fracture. 4. Large amount stool suggesting possible fecal stasis. Electronically Signed: Aminta Costa MD at 20:36 EDT , Service support ,
[2018-05-23 19:37] LABS: Absolute Lymphocyte Count 1.31 X10^3/ul (0.83-4.51); Absolute Neutrophil Count 5.2 X10^3/uL (2.0-7.7); Basophil# 0.01 X10^3/uL; Basophil% 0.1 % (0-1); Eosinophil# 0.04 X10^3/uL; Eosinophils% 0.6 % (0-5); Hematocrit 31.6 % (37-47); Hemoglobin 10.5 g/dl (12.0-15.0); Lymphocyte # 1.31 X10^3/ul (4.0); Lymphocyte % 18.2 % (19-41); Mean Corp Hgb Conc 33.2 g/gl (32-36); Mean Corpuscular Hgb 29.4 pg (27.0-32.0); Mean Corpuscular Volume 88.5 fL (81-99); Mean Platelet Vol. 9.8 fl (6.2-12.0); Monocyte# 0.61 X10^3/uL; Monocyte% 8.5 % (0-10); Neutrophil # 5.19 X10^3/uL (2.7-7.7); Neutrophil % 72.3 % (47-70); Platelet Count 249 K/mm3 (150-450); RBC Distribution Width CV 14.6 % (11.6-14.6); RBC Distribution Width SD 46.7 fl (35.1-43.9); Red Blood Count 3.57 M/mm3 (4.2-5.4); White Blood Count 7.2 K/mm3 (4.4-11.0)
[2018-05-23 19:38] LABS: POSITIVE COUNT NO; POSITIVE DIFFERENTIAL NO; POSITIVE MORPHOLOGY NO
--- NOTE | 2018-05-23 19:50 | ED.DCSUM_ITS ---
- ER Visit Summary Date of Service: 05/23/18 Chief Complaint: Fall History of Present Illness: The patient is a 83 F who states that on Sunday possibly Sunday he is not sure she sustained a fall in her garage landing on her right side/buttock. She was able to get up and has been ambulating since. She states that everyone keeps telling her to be checked out so she comes to the emergency department with tailbone pain. She has had numerous falls recently and states that she will not use a walker. She has a cane and falls with the cane and sometimes without the cane. The patient also complains of urinary incontinence which is been a long-standing chronic problem. She states that ever since she started taking Lasix the problems gotten worse. She has not had a urogynecology evaluation. Physical Examination: Afebrile vital signs are stable Gen: Well-nourished well-developed Head: Normocephalic atraumatic Eyes: Perrl EOMI ENT: TMs clear no rhinorrhea moist mucous membranes Neck: Supple no lymphadenopathy no JVD nontender CVS: Regular rate rhythm no murmurs normal S1-S2 Respiratory: No distress clear to auscultation bilaterally chest nontender Abdomen: Soft nontender nondistended normal bowel sounds no masses Back: Tenderness to palpation along the sacrum and coccyx. The right buttock is ecchymotic. Extremity: Nontender bilateral lower extremity edema Skin: Various contusions of different stages of healing Neuro: alert orientated ?3 CN II-XII intact normal strength sensation reflexes gait cerebellar Psych: Normal affect normal mood Test Results: CT of the pelvis was obtained. This was negative for fracture. CBC showed a hemoglobin of 10.5. BMP with a glucose of 368. Emergency Department Course and Treatment: She was strongly urged to use a walker which she states she does not wish to do. She was advised that she is most likely going to fall and eventually break a bone or possibly worse such as intracranial hemorrhage. I advised her to follow-up with primary care regarding her hyperglycemia as well as frequent falls. Please return if worsening or concerns. Impression: 1. Fall 2. Buttock contusion 3. Diabetic hyperglycemia This note was generated with [employer] software. It may contain incorrect words, spelling, and punctuation that were not noted in review of the chart prior to signing ED Disposition - Plan for ED Patient: Disposition: Home or Assisted Living Chief Complaint: Fall Instructions: ED Prevention Fall Referrals: Chad Chang MD [Primary Care Provider] - As soon as possible
[2018-05-23 19:51] LABS: Anion Gap 7 (5-15); BUN 16 mg/dL (7-18); BUN/Creat Ratio 23.5 RATIO (10-20); Chloride 100 mmol/L (98-107); Creatinine, Serum 0.68 mg/dL (0.55-1.02); EST Glomerular Filtration Rate 88 mL/min (>60); Est Glom Filt Rate - Afr Amer 107 mL/min (>60); Estimated Creatinine Clearance 33.29 ml/min; Glucose 368 mg/dL (74-106); Sodium Level 134 mmol/L (136-145)
[2018-05-23 21:03] VITALS: BP 140/80; PULSE 78; RESP 18; O2SAT 97
--- NOTE | 2018-05-23 21:04 | ED.RN ---
pt given written and verbal discharge instructions. pt verbalizes understanding. iv d/c and covered with 2x2 gauze.pt assited in dressing, wheeled to restroom. pt then wheeled to friends vehicle and assisted into car.
== END 2018-05-23 21:05 | disposition home or self-care (01) ==
PROVIDERS: Emergency Provider Emergency Medicine; Family Provider Family Medicine; PCP Family Medicine
DX: E11.65 Type 2 diabetes mellitus with hyperglycemia (principal); S30.0XXA Contusion of lower back and pelvis, initial encounter; W19.XXXA Unspecified fall, initial encounter; Y93.9 Activity, unspecified; Y92.015 Private garage of single-family (private) house as the place of occurrence of the external cause; Y99.9 Unspecified external cause status; R32 Unspecified urinary incontinence; I10 Essential (primary) hypertension; E78.00 Pure hypercholesterolemia, unspecified
CPT/HCPCS: 11042; 29581; 72192; 80048; 85025; 99285; A4216

== ENCOUNTER 2018-06-19 10:30 | Outpatient (RCR) | payer MEDICARE, OTHER, SELFPAY ==
[2018-05-20 00:52] VITALS: BP 154/67; PULSE 80; RESP 16; TEMP 36.9
[2018-05-21 11:29] VITALS: BP 148/68; PULSE 88; RESP 16; TEMP 36.6
[2018-05-23 11:00] VITALS: BP 161/82; PULSE 90; RESP 18; TEMP 37.1
--- NOTE | 2018-05-23 11:47 | PCM.WC.PN ---
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 Bilateral lower extremity swelling. History of Wound: Ms. Jovel 20-year-old who presents to the wound center due to nonhealing left lower extremity wounds/ulcers. Exact etiology is unknown however patient believes it started in early December. She has had no significant wound care but has covered the wound surfaces with Band-Aids. She has noted increased drainage from the wound of clear substance. She was recently seen by primary care physician and started on Augmentin. She has had no cultures done. She feels well otherwise and denies chills, fever, nausea, vomiting or any change in her bowel habit. She is not very compliant with her diabetic care. She is being seen for Dr. De Santiago in her absence for follow up treatment today. She has been tolerating 3M dressings and promogran. Is tolerating Clindamycin as well. Has a few doses left. Has missed some doses. Denies increased drainage, pain or fever or chills. Progress of Wound: Ms. Jovel had been discharged last week however, she failed to use her compression as direected and now returns with significant bilateral lower extremity selling with mutiole ulcers on both extremities. She deneis any significiant lower extremity pain or feeling of unwell. She also denies chills or fever. 05/15/18: Wound is improving. No new complaints at this time. 05/23/2018: Returns with worsening ulcers and bilateral lower swelling. She states that she has not taken her water pills in 2 days. - Physical Exam Vital Signs Temp Pulse Resp BP 98.7 F 90 18 161/82 H 05/23/18 11:00 05/23/18 11:00 05/23/18 11:00 05/23/18 11:00 General: Alert, Oriented x3, Cooperative, No apparent distress HEENT: Atraumatic Oral: Moist Mucosa Lungs: Normal air movement Abdomen: Soft, Non Tender Extremities: No cyanosis, Edema Skin: Ulcer/ Wound Wound Measurements and Assessment WC - Nurse 1 - General Ulcer Measurement Start: 05/21/18 11:29 Freq: Status: Active Protocol: Activity Type Activity Date Activity User E-Sign Co-Sign Detail Recorded Client Recorded Date Recorded By Document 05/21/18 11:29 BMF [id number] 05/21/18 11:32 BMF Document 05/23/18 11:00 RB [id number] 05/23/18 11:18 RB 05/21/18 05/23/18 11:29 11:00 [Ulcer Assessment] #6 right medial le cluster -Combined with other wound No -Current Size (cm) - Length 0.5 -Current Size (cm) - Width 0.7 -Current Size (cm) - Depth 0.1 -Total Square Cm 0.35 -Tunneling No -Undermining/Tunneling No -Circular Undermining No -Exudate Amt Small (1-33%) -Exudate Type Serosanguineous -Wound Margin Distinct, Outline Attached -Granulation Amt Small (1-33%) -Granulation Quality [place] -Necrosis Amt Large (67-100%) -Necrotic Tissue Type Adherent Slough -Texture (Jessie-wound Skin Appearance) Assessed -Moisture (Jessie-wound Skin Appearance Assessed ) -Color (Jessie-wound Skin Appearance) Assessed -Temperature (Jessie-wound Skin No Abnormality Appearance) (Pt Warm) -Tenderness on Palpation (Jessie-wound No Skin Appearance) -Ulcer Cleansing Wound Cleanser -Foul Odor after Cleansing No -Anesthetic Used 4% Lidocaine Solution #5 LEFT MEDIAL. CALF -Combined with other wound No -Current Size (cm) - Length 3 -Current Size (cm) - Width 1.7 -Current Size (cm) - Depth 0.1 -Total Square Cm 5.1 -Tunneling No -Undermining/Tunneling No -Circular Undermining No -Exudate Amt Small (1-33%) -Exudate Type Serosanguineous -Wound Margin Distinct, Outline Attached -Granulation Amt Medium (34-66%) -Granulation Quality [place] -Slough/Fibrin Yes -Necrosis Amt Medium (34-66%) -Necrotic Tissue Type Adherent Slough -Structure Exposed N/A -Texture (Jessie-wound Skin Appearance) Assessed -Moisture (Jessie-wound Skin Appearance Assessed ) -Color (Jessie-wound Skin Appearance) Assessed -Temperature (Jessie-wound Skin No Abnormality Appearance) (Pt Warm) -Tenderness on Palpation (Jessie-wound No Skin Appearance) -Ulcer Cleansing Wound Cleanser -Foul Odor after Cleansing No -Anesthetic Used 4% Lidocaine Solution #7 RT LAT LE -Combined with other wound No -Current Size (cm) - Length 0.5 -Current Size (cm) - Width 0.6 -Current Size (cm) - Depth 0.2 -Total Square Cm 0.30 -Photo Taken No -Tunneling No -Undermining/Tunneling No -Circular Undermining No -Exudate Amt Small (1-33%) -Exudate Type Serosanguineous -Wound Margin Distinct, Outline Attached -Granulation Amt Medium (34-66%) -Granulation Quality [place] -Slough/Fibrin Yes -Necrosis Amt Small (1-33%) -Necrotic Tissue Type Adherent Slough -Structure Exposed N/A -Texture (Jessie-wound Skin Appearance) Assessed -Moisture (Jessie-wound Skin Appearance Assessed ) -Color (Jessie-wound Skin Appearance) Assessed -Temperature (Jessie-wound Skin No Abnormality Appearance) (Pt Warm) -Tenderness on Palpation (Jessie-wound No Skin Appearance) -Ulcer Cleansing Wound Cleanser -Foul Odor after Cleansing No -Anesthetic Used 4% Lidocaine Solution Wound Center Nurse 1 [Edema Assessment] -Lower Limb Edema Present Yes Yes -Right Calf (cm) 43.5 35 -Right Ankle (cm) 23.5 24.5 -Left Calf (cm) 42.5 36 -Left Ankle (cm) 23.6 24.5 WC - Nurse 2 - General Ulcer CM Notes Start: 05/21/18 11:29 Freq: Status: Active Protocol: Activity Type Activity Date Activity User E-Sign Co-Sign Detail Recorded Client Recorded Date Recorded By Document 05/23/18 11:29 MW [id number] 05/23/18 11:33 MW 05/23/18 11:29 Wound Center Nurse 2 [Procedure/Treatment] #6 right medial le cluster -Time 11:29 -Correct Patient Yes -Correct Side, Site, Position Yes -Correct Procedure Yes -Procedure Performed Yes -Type of Procedure Debridement -Clinical Debridement Subcutaneous -Post Debridement Size (cm) - Length 0.6 -Post Debridement Size (cm) - Width 0.6 -Post Debridement Size (cm) - Depth 0.2 -Total Square Cm 0.36 -Wound/Ulcer Outcome Not Healed -Ulcer Cleansing Rinsed/ Irrigated with Saline -Foul Odor after Cleansing No -Bioengineered Tissue No -Bleeding Controlled with Pressure -Treatment Response Procedure Tolerated Well #5 LEFT MEDIAL. CALF -Time 11:29 -Correct Patient Yes -Correct Side, Site, Position Yes -Correct Procedure Yes -Procedure Performed Yes -Type of Procedure Debridement -Clinical Debridement Subcutaneous -Post Debridement Size (cm) - Length 3.0 -Post Debridement Size (cm) - Width 1.5 -Post Debridement Size (cm) - Depth 0.1 -Total Square Cm 4.50 -Wound/Ulcer Outcome Not Healed -Ulcer Cleansing Rinsed/ Irrigated with Saline -Foul Odor after Cleansing No -Bioengineered Tissue No -Bleeding Controlled with Pressure -Treatment Response Procedure Tolerated Well #7 RT LAT LE -Time 11:29 -Correct Patient Yes -Correct Side, Site, Position Yes -Correct Procedure Yes -Procedure Performed Yes -Type of Procedure Debridement -Clinical Debridement Subcutaneous -Post Debridement Size (cm) - Length 0.4 -Post Debridement Size (cm) - Width 0.7 -Post Debridement Size (cm) - Depth 0.2 -Total Square Cm 0.28 -Wound/Ulcer Outcome Not Healed -Ulcer Cleansing Rinsed/ Irrigated with Saline -Foul Odor after Cleansing No -Bioengineered Tissue No -Bleeding Controlled with Pressure -Treatment Response Procedure Tolerated Well [See Physician Procedure note for Specifics] Pain Scale: 0-10 Numeric [Pain] -Is Patient Pain Free? Yes Musculoskeletal: No Muscle Wasting Neurological: Cranial nerves II-XII grossly intact Psych/Mental Status: Normal Affect Debridement Note Post-Debridement Measurements/Treatment WC - Nurse 2 - General Ulcer CM Notes Start: 05/21/18 11:29 Freq: Status: Active Protocol: Activity Type Activity Date Activity User E-Sign Co-Sign Detail Recorded Client Recorded Date Recorded By Document 05/23/18 11:29 MW [id number] 05/23/18 11:33 MW 05/23/18 11:29 Wound Center Nurse 2 #6 right medial le cluster -Time 11:29 -Correct Patient Yes -Correct Side, Site, Position Yes -Correct Procedure Yes -Procedure Performed Yes -Type of Procedure Debridement -Clinical Debridement Subcutaneous -Post Debridement Size (cm) - Length 0.6 -Post Debridement Size (cm) - Width 0.6 -Post Debridement Size (cm) - Depth 0.2 -Total Square Cm 0.36 -Wound/Ulcer Outcome Not Healed -Ulcer Cleansing Rinsed/ Irrigated with Saline -Foul Odor after Cleansing No -Bioengineered Tissue No -Bleeding Controlled with Pressure -Treatment Response Procedure Tolerated Well #5 LEFT MEDIAL. CALF -Time 11:29 -Correct Patient Yes -Correct Side, Site, Position Yes -Correct Procedure Yes -Procedure Performed Yes -Type of Procedure Debridement -Clinical Debridement Subcutaneous -Post Debridement Size (cm) - Length 3.0 -Post Debridement Size (cm) - Width 1.5 -Post Debridement Size (cm) - Depth 0.1 -Total Square Cm 4.50 -Wound/Ulcer Outcome Not Healed -Ulcer Cleansing Rinsed/ Irrigated with Saline -Foul Odor after Cleansing No -Bioengineered Tissue No -Bleeding Controlled with Pressure -Treatment Response Procedure Tolerated Well #7 RT LAT LE -Time 11:29 -Correct Patient Yes -Correct Side, Site, Position Yes -Correct Procedure Yes -Procedure Performed Yes -Type of Procedure Debridement -Clinical Debridement Subcutaneous -Post Debridement Size (cm) - Length 0.4 -Post Debridement Size (cm) - Width 0.7 -Post Debridement Size (cm) - Depth 0.2 -Total Square Cm 0.28 -Wound/Ulcer Outcome Not Healed -Ulcer Cleansing Rinsed/ Irrigated with Saline -Foul Odor after Cleansing No -Bioengineered Tissue No -Bleeding Controlled with Pressure -Treatment Response Procedure Tolerated Well Pain Scale: 0-10 Numeric Is Patient Pain Free? Yes Wound debrided: Left lower extremity ( Medial ) Wound Grade/Stage: Stage II Type of Debridement: Excisional debridement Anesthesia Used: 4% Lidocaine Solution Depth: Down to and including healthy tissue, in the subcutaneous layer Percentage of wound debrided: 100 Instrument Used: 3mm curette Tissue Removed: Slough and devitalized tissue Severity: Fat Layer Exposed Amount of bleeding with debridement: Mild Bleeding Controlled with: Pressure Patient tolerated procedure well - Additional Wound Wound debrided: Right lower extremity ( medial ) Wound Grade/Stage: Stage II Type of Debridement: Excisional debridement Anesthesia Used: 4% Lidocaine Solution Depth: Down to and including healthy tissue, in the subcutaneous layer Percentage of wound debrided: 100 Instrument Used: 3mm curette Tissue Removed: Slough and devitalized tissue Severity: Fat Layer Exposed Amount of bleeding with debridement: Mild Bleeding Controlled with: Pressure Patient tolerated procedure: Patient tolerated procedure well - Additional Wound Wound debrided: Right lower extremity ( lateral ) Wound Grade/Stage: Stage II Type of Debridement: Excisional debridement Anesthesia Used: 4% Lidocaine Solution Depth: Down to and including healthy tissue, in the subcutaneous layer Percentage of wound debrided: 100 Instrument Used: 3mm curette Tissue Removed: Slough and devitalized tissue Severity: Fat Layer Exposed Amount of bleeding with debridement: Mild Bleeding Controlled with: Pressure Patient tolerated procedure: Patient tolerated procedure well Assessment/Plan Active Problems (Last Updated 04/24/18 @ 09:54 by Didi Perez) 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 Diabetes mellitus type 2, poorly controlled. Bilateral lower extremity venous insufficiency. Plan: Worsening wound and swelling noted today. Debridement done as documenetd above, procedure was well tolereated. Continue Fibracol to all wounds with adaptic over top. Elevate lower extremity when seated and in bed. 3M wraps for edema management. Compliance with diuretics and elevation of her lower extremities strongly recommended. Continue Follow-up with PCP for optimal blood sugar management. Follow up in 1 week. Advised to call with any questions or concerns. This note was generated with [employer] software. It may contain incorrect words, spelling, and punctuation that were not noted in checking the note before signing.
--- NOTE | 2018-05-23 11:51 | PN.PCM_ITS ---
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 Bilateral lower extremity swelling. History of Wound: Ms. Jovel 20-year-old who presents to the wound center due to nonhealing left lower extremity wounds/ulcers. Exact etiology is unknown however patient believes it started in early December. She has had no significant wound care but has covered the wound surfaces with Band-Aids. She has noted increased drainage from the wound of clear substance. She was recently seen by primary care physician and started on Augmentin. She has had no cultures done. She feels well otherwise and denies chills, fever, nausea, vomiting or any change in her bowel habit. She is not very compliant with her diabetic care. She is being seen for Dr. De Santiago in her absence for follow up treatment today. She has been tolerating 3M dressings and promogran. Is tolerating Clindamycin as well. Has a few doses left. Has missed some doses. Denies increased drainage, pain or fever or chills. Progress of Wound: Ms. Jovel had been discharged last week however, she failed to use her compression as direected and now returns with significant bilateral lower extremity selling with mutiole ulcers on both extremities. She deneis any significiant lower extremity pain or feeling of unwell. She also denies chills or fever. 05/15/18: Wound is improving. No new complaints at this time. 05/23/2018: Returns with worsening ulcers and bilateral lower swelling. She states that she has not taken her water pills in 2 days. - Physical Exam Vital Signs Temp Pulse Resp BP 98.7 F 90 18 161/82 H 05/23/18 11:00 05/23/18 11:00 05/23/18 11:00 05/23/18 11:00 General: Alert, Oriented x3, Cooperative, No apparent distress HEENT: Atraumatic Oral: Moist Mucosa Lungs: Normal air movement Abdomen: Soft, Non Tender Extremities: No cyanosis, Edema Skin: Ulcer/ Wound Wound Measurements and Assessment WC - Nurse 1 - General Ulcer Measurement Start: 05/21/18 11:29 Freq: Status: Active Protocol: Activity Type Activity Date Activity User E-Sign Co-Sign Detail Recorded Client Recorded Date Recorded By Document 05/21/18 11:29 BMF [id number] 05/21/18 11:32 BMF Document 05/23/18 11:00 RB [id number] 05/23/18 11:18 RB 05/21/18 05/23/18 11:29 11:00 [Ulcer Assessment] #6 right medial le cluster -Combined with other wound No -Current Size (cm) - Length 0.5 -Current Size (cm) - Width 0.7 -Current Size (cm) - Depth 0.1 -Total Square Cm 0.35 -Tunneling No -Undermining/Tunneling No -Circular Undermining No -Exudate Amt Small (1-33%) -Exudate Type Serosanguineous -Wound Margin Distinct, Outline Attached -Granulation Amt Small (1-33%) -Granulation Quality [place] -Necrosis Amt Large (67-100%) -Necrotic Tissue Type Adherent Slough -Texture (Jessie-wound Skin Appearance) Assessed -Moisture (Jessie-wound Skin Appearance Assessed ) -Color (Jessie-wound Skin Appearance) Assessed -Temperature (Jessie-wound Skin No Abnormality Appearance) (Pt Warm) -Tenderness on Palpation (Jessie-wound No Skin Appearance) -Ulcer Cleansing Wound Cleanser -Foul Odor after Cleansing No -Anesthetic Used 4% Lidocaine Solution #5 LEFT MEDIAL. CALF -Combined with other wound No -Current Size (cm) - Length 3 -Current Size (cm) - Width 1.7 -Current Size (cm) - Depth 0.1 -Total Square Cm 5.1 -Tunneling No -Undermining/Tunneling No -Circular Undermining No -Exudate Amt Small (1-33%) -Exudate Type Serosanguineous -Wound Margin Distinct, Outline Attached -Granulation Amt Medium (34-66%) -Granulation Quality [place] -Slough/Fibrin Yes -Necrosis Amt Medium (34-66%) -Necrotic Tissue Type Adherent Slough -Structure Exposed N/A -Texture (Jessie-wound Skin Appearance) Assessed -Moisture (Jessie-wound Skin Appearance Assessed ) -Color (Jessie-wound Skin Appearance) Assessed -Temperature (Jessie-wound Skin No Abnormality Appearance) (Pt Warm) -Tenderness on Palpation (Jessie-wound No Skin Appearance) -Ulcer Cleansing Wound Cleanser -Foul Odor after Cleansing No -Anesthetic Used 4% Lidocaine Solution #7 RT LAT LE -Combined with other wound No -Current Size (cm) - Length 0.5 -Current Size (cm) - Width 0.6 -Current Size (cm) - Depth 0.2 -Total Square Cm 0.30 -Photo Taken No -Tunneling No -Undermining/Tunneling No -Circular Undermining No -Exudate Amt Small (1-33%) -Exudate Type Serosanguineous -Wound Margin Distinct, Outline Attached -Granulation Amt Medium (34-66%) -Granulation Quality [place] -Slough/Fibrin Yes -Necrosis Amt Small (1-33%) -Necrotic Tissue Type Adherent Slough -Structure Exposed N/A -Texture (Jessie-wound Skin Appearance) Assessed -Moisture (Jessie-wound Skin Appearance Assessed ) -Color (Jessie-wound Skin Appearance) Assessed -Temperature (Jessie-wound Skin No Abnormality Appearance) (Pt Warm) -Tenderness on Palpation (Jessie-wound No Skin Appearance) -Ulcer Cleansing Wound Cleanser -Foul Odor after Cleansing No -Anesthetic Used 4% Lidocaine Solution Wound Center Nurse 1 [Edema Assessment] -Lower Limb Edema Present Yes Yes -Right Calf (cm) 43.5 35 -Right Ankle (cm) 23.5 24.5 -Left Calf (cm) 42.5 36 -Left Ankle (cm) 23.6 24.5 WC - Nurse 2 - General Ulcer CM Notes Start: 05/21/18 11:29 Freq: Status: Active Protocol: Activity Type Activity Date Activity User E-Sign Co-Sign Detail Recorded Client Recorded Date Recorded By Document 05/23/18 11:29 MW [id number] 05/23/18 11:33 MW 05/23/18 11:29 Wound Center Nurse 2 [Procedure/Treatment] #6 right medial le cluster -Time 11:29 -Correct Patient Yes -Correct Side, Site, Position Yes -Correct Procedure Yes -Procedure Performed Yes -Type of Procedure Debridement -Clinical Debridement Subcutaneous -Post Debridement Size (cm) - Length 0.6 -Post Debridement Size (cm) - Width 0.6 -Post Debridement Size (cm) - Depth 0.2 -Total Square Cm 0.36 -Wound/Ulcer Outcome Not Healed -Ulcer Cleansing Rinsed/ Irrigated with Saline -Foul Odor after Cleansing No -Bioengineered Tissue No -Bleeding Controlled with Pressure -Treatment Response Procedure Tolerated Well #5 LEFT MEDIAL. CALF -Time 11:29 -Correct Patient Yes -Correct Side, Site, Position Yes -Correct Procedure Yes -Procedure Performed Yes -Type of Procedure Debridement -Clinical Debridement Subcutaneous -Post Debridement Size (cm) - Length 3.0 -Post Debridement Size (cm) - Width 1.5 -Post Debridement Size (cm) - Depth 0.1 -Total Square Cm 4.50 -Wound/Ulcer Outcome Not Healed -Ulcer Cleansing Rinsed/ Irrigated with Saline -Foul Odor after Cleansing No -Bioengineered Tissue No -Bleeding Controlled with Pressure -Treatment Response Procedure Tolerated Well #7 RT LAT LE -Time 11:29 -Correct Patient Yes -Correct Side, Site, Position Yes -Correct Procedure Yes -Procedure Performed Yes -Type of Procedure Debridement -Clinical Debridement Subcutaneous -Post Debridement Size (cm) - Length 0.4 -Post Debridement Size (cm) - Width 0.7 -Post Debridement Size (cm) - Depth 0.2 -Total Square Cm 0.28 -Wound/Ulcer Outcome Not Healed -Ulcer Cleansing Rinsed/ Irrigated with Saline -Foul Odor after Cleansing No -Bioengineered Tissue No -Bleeding Controlled with Pressure -Treatment Response Procedure Tolerated Well [See Physician Procedure note for Specifics] Pain Scale: 0-10 Numeric [Pain] -Is Patient Pain Free? Yes Musculoskeletal: No Muscle Wasting Neurological: Cranial nerves II-XII grossly intact Psych/Mental Status: Normal Affect Debridement Note Post-Debridement Measurements/Treatment WC - Nurse 2 - General Ulcer CM Notes Start: 05/21/18 11:29 Freq: Status: Active Protocol: Activity Type Activity Date Activity User E-Sign Co-Sign Detail Recorded Client Recorded Date Recorded By Document 05/23/18 11:29 MW [id number] 05/23/18 11:33 MW 05/23/18 11:29 Wound Center Nurse 2 #6 right medial le cluster -Time 11:29 -Correct Patient Yes -Correct Side, Site, Position Yes -Correct Procedure Yes -Procedure Performed Yes -Type of Procedure Debridement -Clinical Debridement Subcutaneous -Post Debridement Size (cm) - Length 0.6 -Post Debridement Size (cm) - Width 0.6 -Post Debridement Size (cm) - Depth 0.2 -Total Square Cm 0.36 -Wound/Ulcer Outcome Not Healed -Ulcer Cleansing Rinsed/ Irrigated with Saline -Foul Odor after Cleansing No -Bioengineered Tissue No -Bleeding Controlled with Pressure -Treatment Response Procedure Tolerated Well #5 LEFT MEDIAL. CALF -Time 11:29 -Correct Patient Yes -Correct Side, Site, Position Yes -Correct Procedure Yes -Procedure Performed Yes -Type of Procedure Debridement -Clinical Debridement Subcutaneous -Post Debridement Size (cm) - Length 3.0 -Post Debridement Size (cm) - Width 1.5 -Post Debridement Size (cm) - Depth 0.1 -Total Square Cm 4.50 -Wound/Ulcer Outcome Not Healed -Ulcer Cleansing Rinsed/ Irrigated with Saline -Foul Odor after Cleansing No -Bioengineered Tissue No -Bleeding Controlled with Pressure -Treatment Response Procedure Tolerated Well #7 RT LAT LE -Time 11:29 -Correct Patient Yes -Correct Side, Site, Position Yes -Correct Procedure Yes -Procedure Performed Yes -Type of Procedure Debridement -Clinical Debridement Subcutaneous -Post Debridement Size (cm) - Length 0.4 -Post Debridement Size (cm) - Width 0.7 -Post Debridement Size (cm) - Depth 0.2 -Total Square Cm 0.28 -Wound/Ulcer Outcome Not Healed -Ulcer Cleansing Rinsed/ Irrigated with Saline -Foul Odor after Cleansing No -Bioengineered Tissue No -Bleeding Controlled with Pressure -Treatment Response Procedure Tolerated Well Pain Scale: 0-10 Numeric Is Patient Pain Free? Yes Wound debrided: Left lower extremity ( Medial ) Wound Grade/Stage: Stage II Type of Debridement: Excisional debridement Anesthesia Used: 4% Lidocaine Solution Depth: Down to and including healthy tissue, in the subcutaneous layer Percentage of wound debrided: 100 Instrument Used: 3mm curette Tissue Removed: Slough and devitalized tissue Severity: Fat Layer Exposed Amount of bleeding with debridement: Mild Bleeding Controlled with: Pressure Patient tolerated procedure well - Additional Wound Wound debrided: Right lower extremity ( medial ) Wound Grade/Stage: Stage II Type of Debridement: Excisional debridement Anesthesia Used: 4% Lidocaine Solution Depth: Down to and including healthy tissue, in the subcutaneous layer Percentage of wound debrided: 100 Instrument Used: 3mm curette Tissue Removed: Slough and devitalized tissue Severity: Fat Layer Exposed Amount of bleeding with debridement: Mild Bleeding Controlled with: Pressure Patient tolerated procedure: Patient tolerated procedure well - Additional Wound Wound debrided: Right lower extremity ( lateral ) Wound Grade/Stage: Stage II Type of Debridement: Excisional debridement Anesthesia Used: 4% Lidocaine Solution Depth: Down to and including healthy tissue, in the subcutaneous layer Percentage of wound debrided: 100 Instrument Used: 3mm curette Tissue Removed: Slough and devitalized tissue Severity: Fat Layer Exposed Amount of bleeding with debridement: Mild Bleeding Controlled with: Pressure Patient tolerated procedure: Patient tolerated procedure well Assessment/Plan Active Problems (Last Updated 04/24/18 @ 09:54 by Didi Perez) 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 Diabetes mellitus type 2, poorly controlled. Bilateral lower extremity venous insufficiency. Plan: Worsening wound and swelling noted today. Debridement done as documenetd above, procedure was well tolereated. Continue Fibracol to all wounds with adaptic over top. Elevate lower extremity when seated and in bed. 3M wraps for edema management. Compliance with diuretics and elevation of her lower extremities strongly recommended. Continue Follow-up with PCP for optimal blood sugar management. Follow up in 1 week. Advised to call with any questions or concerns. This note was generated with [employer] software. It may contain incorrect words, spelling, and punctuation that were not noted in checking the note before signing.
[2018-05-29 10:34] VITALS: BP 128/67; PULSE 84; RESP 18; TEMP 36.4
--- NOTE | 2018-05-29 11:09 | PN.PCM_ITS ---
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 Current Visit: Yes Code(s): L97.922 - Non-pressure chronic ulcer of unspecified part of left lower leg with fat layer exposed (2) Ulcer of right lower extremity with fat layer exposed Status: Chronic Current Visit: Yes Code(s): L97.912 - Non-pressure chronic ulcer of unspecified part of right lower leg with fat layer exposed (3) Venous insufficiency of both lower extremities Status: Chronic Current Visit: Yes Code(s): I87.2 - Venous insufficiency (chronic) (peripheral) (4) Type 2 diabetes mellitus Status: Chronic Current Visit: No Qualifiers: Code(s): E11.9 - Type 2 diabetes mellitus without complications Type of Wound Date of Service: 05/29/18 Chief Complaint: Left lower extremity ulcers. Bilateral lower extremity swelling. History of Wound: Ms. Jovel 20-year-old who presents to the wound center due to nonhealing left lower extremity wounds/ulcers. Exact etiology is unknown however patient believes it started in early December. She has had no significant wound care but has covered the wound surfaces with Band-Aids. She has noted increased drainage from the wound of clear substance. She was recently seen by primary care physician and started on Augmentin. She has had no cultures done. She feels well otherwise and denies chills, fever, nausea, vomiting or any change in her bowel habit. She is not very compliant with her diabetic care. She is being seen for Dr. De Santiago in her absence for follow up treatment today. She has been tolerating 3M dressings and promogran. Is tolerating Clindamycin as well. Has a few doses left. Has missed some doses. Denies increased drainage, pain or fever or chills. Progress of Wound: Ms. Jovel had been discharged last week however, she failed to use her compression as direected and now returns with significant bilateral lower extremity selling with mutiole ulcers on both extremities. She deneis any significiant lower extremity pain or feeling of unwell. She also denies chills or fever. 05/15/18: Wound is improving. No new complaints at this time. 05/23/2018: Returns with worsening ulcers and bilateral lower swelling. She states that she has not taken her water pills in 2 days. 05/29/18: Still signiifcant bilateral lower extremity swelling. 3M's not properly treated on her lower extremity. Also still has a lot of fleas all over her. - Physical Exam Vital Signs Temp Pulse Resp BP 97.5 F L 84 18 128/67 H 05/29/18 10:34 05/29/18 10:34 05/29/18 10:34 05/29/18 10:34 General: Alert, Oriented x3, Cooperative, No apparent distress HEENT: Atraumatic Oral: Moist Mucosa Neck: Supple Lungs: Normal air movement Extremities: No cyanosis, Edema Skin: Ulcer/ Wound Wound Measurements and Assessment WC - Nurse 1 - General Ulcer Measurement Start: 05/21/18 11:29 Freq: Status: Active Protocol: Activity Type Activity Date Activity User E-Sign Co-Sign Detail Recorded Client Recorded Date Recorded By Document 05/29/18 10:34 [id number] 05/29/18 10:47 CS 05/29/18 10:34 Wound Center Nurse 1 [Ulcer Assessment] #6 right medial le cluster -Combined with other wound No -Current Size (cm) - Length 0.6 -Current Size (cm) - Width 0.7 -Current Size (cm) - Depth 0.1 -Total Square Cm 0.42 -Photo Taken No -Undermining/Tunneling No -Circular Undermining No -Temperature (Jessie-wound Skin No Abnormality Appearance) (Pt Warm) -Tenderness on Palpation (Jessie-wound No Skin Appearance) -Ulcer Cleansing Wound Cleanser -Foul Odor after Cleansing No -Anesthetic Used 5% Lidocaine Gel #5 LEFT MEDIAL. CALF -Combined with other wound No -Current Size (cm) - Length 2.6 -Current Size (cm) - Width 1.9 -Current Size (cm) - Depth 0.1 -Total Square Cm 4.94 -Photo Taken No -Epithelialization Small 1-33% -Tunneling No -Undermining/Tunneling No -Circular Undermining No -Temperature (Jessie-wound Skin No Abnormality Appearance) (Pt Warm) -Tenderness on Palpation (Jessie-wound No Skin Appearance) -Ulcer Cleansing Wound Cleanser -Foul Odor after Cleansing No -Anesthetic Used 5% Lidocaine Gel #7 RT LAT LE -Combined with other wound No -Current Size (cm) - Length 0.9 -Current Size (cm) - Width 0.4 -Current Size (cm) - Depth 0.1 -Total Square Cm 0.36 -Photo Taken No -Tunneling No -Undermining/Tunneling No -Circular Undermining No -Temperature (Jessie-wound Skin No Abnormality Appearance) (Pt Warm) -Tenderness on Palpation (Jessie-wound No Skin Appearance) -Ulcer Cleansing Wound Cleanser -Foul Odor after Cleansing No -Anesthetic Used 5% Lidocaine Gel [Edema Assessment] -Lower Limb Edema Present Yes -Right Calf (cm) 43 -Right Ankle (cm) 23 -Left Calf (cm) 42 -Left Ankle (cm) 23 WC - Nurse 2 - General Ulcer CM Notes Start: 05/21/18 11:29 Freq: Status: Active Protocol: Activity Type Activity Date Activity User E-Sign Co-Sign Detail Recorded Client Recorded Date Recorded By Document 05/29/18 10:56 MW [id number] 05/29/18 10:59 MW 05/29/18 10:56 Wound Center Nurse 2 [Procedure/Treatment] #6 right medial le cluster -Time 10:56 -Correct Patient Yes -Correct Side, Site, Position Yes -Correct Procedure Yes -Procedure Performed Yes -Type of Procedure Debridement -Clinical Debridement Subcutaneous -Post Debridement Size (cm) - Length 0.6 -Post Debridement Size (cm) - Width 0.6 -Post Debridement Size (cm) - Depth 0.1 -Total Square Cm 0.36 -Wound/Ulcer Outcome Not Healed -Ulcer Cleansing Rinsed/ Irrigated with Saline -Foul Odor after Cleansing No -Bioengineered Tissue No -Bleeding Controlled with Pressure -Treatment Response Procedure Tolerated Well #5 LEFT MEDIAL. CALF -Time 10:57 -Correct Patient Yes -Correct Side, Site, Position Yes -Correct Procedure Yes -Procedure Performed Yes -Type of Procedure Debridement -Clinical Debridement Subcutaneous -Post Debridement Size (cm) - Length 2.4 -Post Debridement Size (cm) - Width 1.5 -Post Debridement Size (cm) - Depth 0.1 -Total Square Cm 3.60 -Wound/Ulcer Outcome Not Healed -Ulcer Cleansing Rinsed/ Irrigated with Saline -Foul Odor after Cleansing No -Bioengineered Tissue No -Bleeding Controlled with Pressure -Treatment Response Procedure Tolerated Well #7 RT LAT LE -Time 10:57 -Correct Patient Yes -Correct Side, Site, Position Yes -Correct Procedure Yes -Procedure Performed No -Post Debridement Size (cm) - Length 0 -Post Debridement Size (cm) - Width 0 -Post Debridement Size (cm) - Depth 0 -Total Square Cm 0 -Wound/Ulcer Outcome Healed- Epithelialized -Ulcer Cleansing Not Cleansed -Foul Odor after Cleansing No -Bioengineered Tissue No -Bleeding Controlled with NA -Treatment Response Procedure Tolerated Well [See Physician Procedure note for Specifics] Pain Scale: 0-10 Numeric [Pain] -Is Patient Pain Free? Yes Musculoskeletal: No Muscle Wasting Neurological: Cranial nerves II-XII grossly intact Psych/Mental Status: Normal Affect Debridement Note Post-Debridement Measurements/Treatment WC - Nurse 2 - General Ulcer CM Notes Start: 05/21/18 11:29 Freq: Status: Active Protocol: Activity Type Activity Date Activity User E-Sign Co-Sign Detail Recorded Client Recorded Date Recorded By Document 05/23/18 11:29 MW [id number] 05/23/18 11:33 MW Document 05/29/18 10:56 MW [id number] 05/29/18 10:59 MW 05/23/18 05/29/18 11:29 10:56 Wound Center Nurse 2 #6 right medial le cluster -Time 11:29 10:56 -Correct Patient Yes Yes -Correct Side, Site, Position Yes Yes -Correct Procedure Yes Yes -Procedure Performed Yes Yes -Type of Procedure Debridement Debridement -Clinical Debridement Subcutaneous Subcutaneous -Post Debridement Size (cm) - Length 0.6 0.6 -Post Debridement Size (cm) - Width 0.6 0.6 -Post Debridement Size (cm) - Depth 0.2 0.1 -Total Square Cm 0.36 0.36 -Wound/Ulcer Outcome Not Healed Not Healed -Ulcer Cleansing Rinsed/ Rinsed/ Irrigated with Irrigated with Saline Saline -Foul Odor after Cleansing No No -Bioengineered Tissue No No -Bleeding Controlled with Pressure Pressure -Treatment Response Procedure Procedure Tolerated Well Tolerated Well #5 LEFT MEDIAL. CALF -Time 11:29 10:57 -Correct Patient Yes Yes -Correct Side, Site, Position Yes Yes -Correct Procedure Yes Yes -Procedure Performed Yes Yes -Type of Procedure Debridement Debridement -Clinical Debridement Subcutaneous Subcutaneous -Post Debridement Size (cm) - Length 3.0 2.4 -Post Debridement Size (cm) - Width 1.5 1.5 -Post Debridement Size (cm) - Depth 0.1 0.1 -Total Square Cm 4.50 3.60 -Wound/Ulcer Outcome Not Healed Not Healed -Ulcer Cleansing Rinsed/ Rinsed/ Irrigated with Irrigated with Saline Saline -Foul Odor after Cleansing No No -Bioengineered Tissue No No -Bleeding Controlled with Pressure Pressure -Treatment Response Procedure Procedure Tolerated Well Tolerated Well #7 RT LAT LE -Time 11:29 10:57 -Correct Patient Yes Yes -Correct Side, Site, Position Yes Yes -Correct Procedure Yes Yes -Procedure Performed Yes No -Type of Procedure Debridement -Clinical Debridement Subcutaneous -Post Debridement Size (cm) - Length 0.4 0 -Post Debridement Size (cm) - Width 0.7 0 -Post Debridement Size (cm) - Depth 0.2 0 -Total Square Cm 0.28 0 -Wound/Ulcer Outcome Not Healed Healed- Epithelialized -Ulcer Cleansing Rinsed/ Not Cleansed Irrigated with Saline -Foul Odor after Cleansing No No -Bioengineered Tissue No No -Bleeding Controlled with Pressure NA -Treatment Response Procedure Procedure Tolerated Well Tolerated Well Pain Scale: 0-10 Numeric Is Patient Pain Free? Yes Yes Wound debrided: Left lower extremity medial Wound Grade/Stage: Stage 2 Type of Debridement: Excisional debridement Anesthesia Used: 4% Lidocaine Solution Depth: Down to and including healthy tissue, in the subcutaneous layer Percentage of wound debrided: 100 Instrument Used: 7mm curette Tissue Removed: Slough and devitalized tissue Severity: Fat Layer Exposed Amount of bleeding with debridement: Mild Bleeding Controlled with: Pressure Patient tolerated procedure well - Additional Wound Wound debrided: Right lower extremity medial Wound Grade/Stage: Stage II Type of Debridement: Excisional debridement Anesthesia Used: 4% Lidocaine Solution Depth: Down to and including healthy tissue, in the subcutaneous layer Percentage of wound debrided: 100 Instrument Used: 7mm curette Tissue Removed: Slough and devitalized tissue Severity: Fat Layer Exposed Amount of bleeding with debridement: Mild Bleeding Controlled with: Pressure Patient tolerated procedure: Patient tolerated procedure well - Additional Wound Wound debrided: Right lower extremity lateral Wound Grade/Stage: Stage II Type of Debridement: Selective debridement Anesthesia Used: 4% Lidocaine Solution Depth: Down to and including healthy tissue Percentage of wound debrided: 100 Instrument Used: 7mm curette Tissue Removed: Devitalized tissue Amount of bleeding with debridement: None Patient tolerated procedure: Patient tolerated procedure well Assessment/Plan Active Problems (Last Updated 04/24/18 @ 09:54 by Didi Perez) 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 Diabetes mellitus type 2, poorly controlled. Bilateral lower extremity venous insufficiency. Plan: Patient was noted to have fallen on coming out of her car today. She also had a fall last weekend and on review of her recent ER notes, she has had several episodes of falls. I did discuss with patient last week about moving to an assisted living due to obvious inability to care for herself. She repeatedly comes in with large amounts of fleas. Patient however declined and states that when she thinks she is incapable of caring for herself she will move to [place] to be closer to his sister. Bilateral lower extremity edema still significant, and 3M's not properly fitted/in place. She is yet to follow- up with the lymphedema clinic. Debridement done as documenetd above, procedure was well tolereated. Continue Fibracol to all wounds with adaptic over top. Elevate lower extremity when seated and in bed. 3M wraps for edema management. Compliance with diuretics and elevation of her lower extremities strongly recommended. Continue Follow-up with PCP for optimal blood sugar management. Follow up in 1 week. Advised to call with any questions or concerns. This note was generated with [employer] dictation software. It may contain incorrect words, spelling, and punctuation that were not noted in checking the note before signing.
[2018-06-05 11:30] VITALS: BP 135/70; PULSE 83; RESP 18; TEMP 36.3
--- NOTE | 2018-06-05 13:30 | PCM.WC.PN ---
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 Bilateral lower extremity swelling. History of Wound: Ms. Jovel 20-year-old who presents to the wound center due to nonhealing left lower extremity wounds/ulcers. Exact etiology is unknown however patient believes it started in early December. She has had no significant wound care but has covered the wound surfaces with Band-Aids. She has noted increased drainage from the wound of clear substance. She was recently seen by primary care physician and started on Augmentin. She has had no cultures done. She feels well otherwise and denies chills, fever, nausea, vomiting or any change in her bowel habit. She is not very compliant with her diabetic care. She is being seen for Dr. De Santiago in her absence for follow up treatment today. She has been tolerating 3M dressings and promogran. Is tolerating Clindamycin as well. Has a few doses left. Has missed some doses. Denies increased drainage, pain or fever or chills. Progress of Wound: Ms. Jovel had been discharged last week however, she failed to use her compression as direected and now returns with significant bilateral lower extremity selling with mutiole ulcers on both extremities. She deneis any significiant lower extremity pain or feeling of unwell. She also denies chills or fever. 05/15/18: Wound is improving. No new complaints at this time. 05/23/2018: Returns with worsening ulcers and bilateral lower swelling. She states that she has not taken her water pills in 2 days. 05/29/18: Still signiifcant bilateral lower extremity swelling. 3M's not properly treated on her lower extremity. Also still has a lot of fleas all over her. 06/05/18: New complaints at this time. Ulcers are stable. - Physical Exam Vital Signs Temp Pulse Resp BP 97.3 F L 83 18 135/70 H 06/05/18 11:30 06/05/18 11:30 06/05/18 11:30 06/05/18 11:30 General: Alert, Oriented x3, Cooperative, No apparent distress HEENT: Atraumatic Oral: Moist Mucosa Neck: Supple Lungs: Normal air movement Abdomen: Non Tender Extremities: No cyanosis, Edema Skin: Ulcer/ Wound Wound Measurements and Assessment WC - Nurse 1 - General Ulcer Measurement Start: 05/21/18 11:29 Freq: Status: Active Protocol: Activity Type Activity Date Activity User E-Sign Co-Sign Detail Recorded Client Recorded Date Recorded By Document 06/05/18 11:30 TN [id number] 06/05/18 11:43 TN 06/05/18 11:30 Wound Center Nurse 1 [Ulcer Assessment] #8 R ANT LE -Combined with other wound No -Current Size (cm) - Length 0.9 -Current Size (cm) - Width 0.6 -Current Size (cm) - Depth 0.1 -Total Square Cm 0.54 -Date of Last Picture (Recall this 06/05/18 field) -Photo Taken Yes -Epithelialization None Present -Tunneling No -Undermining/Tunneling No -Circular Undermining No -Classification - Thickness Full Thickness without Exposed Support Structure -Exudate Amt Small (1-33%) -Exudate Type Serous -Wound Margin Distinct, Outline Attached -Granulation Amt Small (1-33%) -Granulation Quality Anon Raices -Slough/Fibrin Yes -Necrotic Tissue Type Adherent Slough -Structure Exposed None/Limited to Skin Breakdown -Texture (Jessie-wound Skin Appearance) Assessed Scarring -Moisture (Jessie-wound Skin Appearance Assessed ) Dry/Scaly -Color (Jessie-wound Skin Appearance) Assessed Erythema -Temperature (Jessie-wound Skin No Abnormality Appearance) (Pt Warm) -Tenderness on Palpation (Jessie-wound No Skin Appearance) -Ulcer Cleansing Wound Cleanser -Foul Odor after Cleansing No -Anesthetic Used 5% Lidocaine Gel #6 right medial le cluster -Combined with other wound No -Current Size (cm) - Length 0.3 -Current Size (cm) - Width 0.3 -Current Size (cm) - Depth 0.1 -Total Square Cm 0.09 -Photo Taken No -Epithelialization None Present -Tunneling No -Undermining/Tunneling No -Circular Undermining No -Classification - Thickness Full Thickness without Exposed Support Structure -Change in Wound Grade/Stage No Query Text:If change please identify the Stage/Grade in the comment (ie. S2 G3) -Exudate Amt Small (1-33%) -Exudate Type Serous -Wound Margin Distinct, Outline Attached -Granulation Amt Small (1-33%) -Granulation Quality Anon Raices -Slough/Fibrin Yes -Necrotic Tissue Type Adherent Slough -Structure Exposed None/Limited to Skin Breakdown -Texture (Jessie-wound Skin Appearance) Assessed Scarring -Moisture (Jessie-wound Skin Appearance Assessed ) Dry/Scaly -Color (Jessie-wound Skin Appearance) Assessed Erythema -Temperature (Jessie-wound Skin No Abnormality Appearance) (Pt Warm) -Tenderness on Palpation (Jessie-wound No Skin Appearance) -Ulcer Cleansing Wound Cleanser -Foul Odor after Cleansing No -Anesthetic Used 5% Lidocaine Gel #5 LEFT MEDIAL. CALF -Combined with other wound No -Current Size (cm) - Length 2.7 -Current Size (cm) - Width 1.5 -Current Size (cm) - Depth 0.1 -Total Square Cm 4.05 -Photo Taken No -Epithelialization None Present -Tunneling No -Undermining/Tunneling No -Circular Undermining No -Classification - Thickness Full Thickness without Exposed Support Structure -Change in Wound Grade/Stage No Query Text:If change please identify the Stage/Grade in the comment (ie. S2 G3) -Exudate Amt Small (1-33%) -Exudate Type Serous -Wound Margin Distinct, Outline Attached -Granulation Amt Small (1-33%) -Granulation Quality Anon Raices -Slough/Fibrin No -Necrotic Tissue Type Adherent Slough -Structure Exposed None/Limited to Skin Breakdown -Texture (Jessie-wound Skin Appearance) Assessed Scarring -Moisture (Jessie-wound Skin Appearance Assessed ) Dry/Scaly -Color (Jessie-wound Skin Appearance) Assessed Erythema -Temperature (Jesise-wound Skin No Abnormality Appearance) (Pt Warm) -Tenderness on Palpation (Jessie-wound No Skin Appearance) -Ulcer Cleansing Wound Cleanser -Foul Odor after Cleansing No -Anesthetic Used 5% Lidocaine Gel [Edema Assessment] -Lower Limb Edema Present Yes -Right Calf (cm) 38.5 -Right Ankle (cm) 22.5 -Left Calf (cm) 37.5 -Left Ankle (cm) 24.5 WC - Nurse 2 - General Ulcer CM Notes Start: 05/21/18 11:29 Freq: Status: Active Protocol: Activity Type Activity Date Activity User E-Sign Co-Sign Detail Recorded Client Recorded Date Recorded By Document 06/05/18 12:20 MW [id number] 06/05/18 12:25 MW 06/05/18 12:20 Wound Center Nurse 2 [Procedure/Treatment] #8 R ANT LE -Time 12:20 -Correct Patient Yes -Correct Side, Site, Position Yes -Correct Procedure Yes -Procedure Performed No -Post Debridement Size (cm) - Length 0 -Post Debridement Size (cm) - Width 0 -Post Debridement Size (cm) - Depth 0 -Total Square Cm 0 -Wound/Ulcer Outcome Healed- Epithelialized -Ulcer Cleansing Not Cleansed -Foul Odor after Cleansing No -Bleeding Controlled with NA -Treatment Response Procedure Tolerated Well #6 right medial le cluster -Time 12:22 -Correct Patient Yes -Correct Side, Site, Position Yes -Correct Procedure Yes -Procedure Performed Yes -Type of Procedure Debridement -Clinical Debridement Subcutaneous -Post Debridement Size (cm) - Length 0.6 -Post Debridement Size (cm) - Width 0.6 -Post Debridement Size (cm) - Depth 0.1 -Total Square Cm 0.36 -Wound/Ulcer Outcome Not Healed -Ulcer Cleansing Rinsed/ Irrigated with Saline -Foul Odor after Cleansing No -Bioengineered Tissue No -Bleeding Controlled with Pressure -Treatment Response Procedure Tolerated Well #5 LEFT MEDIAL. CALF -Time 12:22 -Correct Patient Yes -Correct Side, Site, Position Yes -Correct Procedure Yes -Procedure Performed Yes -Type of Procedure Debridement -Clinical Debridement Subcutaneous -Post Debridement Size (cm) - Length 2.5 -Post Debridement Size (cm) - Width 1.5 -Post Debridement Size (cm) - Depth 0.1 -Total Square Cm 3.75 -Wound/Ulcer Outcome Not Healed -Ulcer Cleansing Rinsed/ Irrigated with Saline -Foul Odor after Cleansing No -Bioengineered Tissue No -Bleeding Controlled with Pressure -Treatment Response Procedure Tolerated Well [See Physician Procedure note for Specifics] Pain Scale: 0-10 Numeric [Pain] -Is Patient Pain Free? Yes Musculoskeletal: No Muscle Wasting Neurological: Cranial nerves II-XII grossly intact Psych/Mental Status: Normal Affect Debridement Note Post-Debridement Measurements/Treatment WC - Nurse 2 - General Ulcer CM Notes Start: 05/21/18 11:29 Freq: Status: Active Protocol: Activity Type Activity Date Activity User E-Sign Co-Sign Detail Recorded Client Recorded Date Recorded By Document 05/23/18 11:29 MW [id number] 05/23/18 11:33 MW Document 05/29/18 10:56 MW [id number] 05/29/18 10:59 MW Document 06/05/18 12:20 MW [id number] 06/05/18 12:25 MW 05/23/18 05/29/18 06/05/18 11:29 10:56 12:20 Wound Center Nurse 2 #8 R ANT LE -Time 12:20 -Correct Patient Yes -Correct Side, Site, Position Yes -Correct Procedure Yes -Procedure Performed No -Post Debridement Size (cm) - Length 0 -Post Debridement Size (cm) - Width 0 -Post Debridement Size (cm) - Depth 0 -Total Square Cm 0 -Wound/Ulcer Outcome Healed- Epithelialized -Ulcer Cleansing Not Cleansed -Foul Odor after Cleansing No -Bleeding Controlled with NA -Treatment Response Procedure Tolerated Well #6 right medial le cluster -Time 11:29 10:56 12:22 -Correct Patient Yes Yes Yes -Correct Side, Site, Position Yes Yes Yes -Correct Procedure Yes Yes Yes -Procedure Performed Yes Yes Yes -Type of Procedure Debridement Debridement Debridement -Clinical Debridement Subcutaneous Subcutaneous Subcutaneous -Post Debridement Size (cm) - Length 0.6 0.6 0.6 -Post Debridement Size (cm) - Width 0.6 0.6 0.6 -Post Debridement Size (cm) - Depth 0.2 0.1 0.1 -Total Square Cm 0.36 0.36 0.36 -Wound/Ulcer Outcome Not Healed Not Healed Not Healed -Ulcer Cleansing Rinsed/ Rinsed/ Rinsed/ Irrigated with Irrigated with Irrigated with Saline Saline Saline -Foul Odor after Cleansing No No No -Bioengineered Tissue No No No -Bleeding Controlled with Pressure Pressure Pressure -Treatment Response Procedure Procedure Procedure Tolerated Well Tolerated Well Tolerated Well #5 LEFT MEDIAL. CALF -Time 11:29 10:57 12:22 -Correct Patient Yes Yes Yes -Correct Side, Site, Position Yes Yes Yes -Correct Procedure Yes Yes Yes -Procedure Performed Yes Yes Yes -Type of Procedure Debridement Debridement Debridement -Clinical Debridement Subcutaneous Subcutaneous Subcutaneous -Post Debridement Size (cm) - Length 3.0 2.4 2.5 -Post Debridement Size (cm) - Width 1.5 1.5 1.5 -Post Debridement Size (cm) - Depth 0.1 0.1 0.1 -Total Square Cm 4.50 3.60 3.75 -Wound/Ulcer Outcome Not Healed Not Healed Not Healed -Ulcer Cleansing Rinsed/ Rinsed/ Rinsed/ Irrigated with Irrigated with Irrigated with Saline Saline Saline -Foul Odor after Cleansing No No No -Bioengineered Tissue No No No -Bleeding Controlled with Pressure Pressure Pressure -Treatment Response Procedure Procedure Procedure Tolerated Well Tolerated Well Tolerated Well #7 RT LAT LE -Time 11:29 10:57 -Correct Patient Yes Yes -Correct Side, Site, Position Yes Yes -Correct Procedure Yes Yes -Procedure Performed Yes No -Type of Procedure Debridement -Clinical Debridement Subcutaneous -Post Debridement Size (cm) - Length 0.4 0 -Post Debridement Size (cm) - Width 0.7 0 -Post Debridement Size (cm) - Depth 0.2 0 -Total Square Cm 0.28 0 -Wound/Ulcer Outcome Not Healed Healed- Epithelialized -Ulcer Cleansing Rinsed/ Not Cleansed Irrigated with Saline -Foul Odor after Cleansing No No -Bioengineered Tissue No No -Bleeding Controlled with Pressure NA -Treatment Response Procedure Procedure Tolerated Well Tolerated Well Pain Scale: 0-10 Numeric Is Patient Pain Free? Yes Yes Yes Wound debrided: Left lower extremity medial Wound Grade/Stage: Stage II Type of Debridement: Excisional debridement Anesthesia Used: 4% Lidocaine Solution Depth: Down to and including healthy tissue, in the subcutaneous layer Percentage of wound debrided: 100 Instrument Used: 7mm curette Tissue Removed: Slough and devitalized tissue Severity: Fat Layer Exposed Amount of bleeding with debridement: Mild Bleeding Controlled with: Pressure Patient tolerated procedure well - Additional Wound Wound debrided: Right lower extremity medial Wound Grade/Stage: Stage II Type of Debridement: Excisional debridement Anesthesia Used: 4% Lidocaine Solution Depth: Down to and including healthy tissue, in the subcutaneous layer Percentage of wound debrided: 100 Instrument Used: 7mm curette Tissue Removed: Slough and devitalized tissue Severity: Fat Layer Exposed Amount of bleeding with debridement: Mild Bleeding Controlled with: Pressure Patient tolerated procedure: Patient tolerated procedure well Assessment/Plan Active Problems (Last Updated 04/24/18 @ 09:54 by Didi Perez) 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 Diabetes mellitus type 2, poorly controlled. Bilateral lower extremity venous insufficiency. Plan: No new complaints at this time. Debridement done as documenetd above, procedure was well tolereated. Continue Fibracol to all wounds with adaptic over top. Leave in place for a week. Elevate lower extremity when seated and in bed. 3M wraps for edema management. Compliance with diuretics and elevation of her lower extremities strongly recommended. Continue Follow-up with PCP for optimal blood sugar management. Follow up in 1 week. Advised to call with any questions or concerns. This note was generated with myTips dictation software. It may contain incorrect words, spelling, and punctuation that were not noted in checking the note before signing.
[2018-06-12 11:47] VITALS: BP 164/71; PULSE 90; RESP 16; TEMP 36.9
--- NOTE | 2018-06-12 12:10 | PN.PCM_ITS ---
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 Bilateral lower extremity swelling. History of Wound: Ms. Jovel 20-year-old who presents to the wound center due to nonhealing left lower extremity wounds/ulcers. Exact etiology is unknown however patient believes it started in early December. She has had no significant wound care but has covered the wound surfaces with Band-Aids. She has noted increased drainage from the wound of clear substance. She was recently seen by primary care physician and started on Augmentin. She has had no cultures done. She feels well otherwise and denies chills, fever, nausea, vomiting or any change in her bowel habit. She is not very compliant with her diabetic care. She is being seen for Dr. De Santiago in her absence for follow up treatment today. She has been tolerating 3M dressings and promogran. Is tolerating Clindamycin as well. Has a few doses left. Has missed some doses. Denies increased drainage, pain or fever or chills. Progress of Wound: Ms. Jovel had been discharged last week however, she failed to use her compression as direected and now returns with significant bilateral lower extremity selling with mutiole ulcers on both extremities. She deneis any significiant lower extremity pain or feeling of unwell. She also denies chills or fever. 05/15/18: Wound is improving. No new complaints at this time. 05/23/2018: Returns with worsening ulcers and bilateral lower swelling. She states that she has not taken her water pills in 2 days. 05/29/18: Still signiifcant bilateral lower extremity swelling. 3M's not properly treated on her lower extremity. Also still has a lot of fleas all over her. 06/05/18: No new complaints at this time. Ulcers are stable. 06/12/18: Stable ulcers. No new complaints. - Physical Exam Vital Signs Temp Pulse Resp BP 98.4 F 90 16 164/71 H 06/12/18 11:47 06/12/18 11:47 06/12/18 11:47 06/12/18 11:47 General: Alert, Oriented x3, Cooperative, No apparent distress HEENT: Atraumatic, Normocephalic Oral: Moist Mucosa Neck: Supple Lungs: Normal air movement Abdomen: Non Tender Extremities: No cyanosis, Edema Skin: Ulcer/ Wound Wound Measurements and Assessment WC - Nurse 1 - General Ulcer Measurement Start: 05/21/18 11:29 Freq: Status: Active Protocol: Activity Type Activity Date Activity User E-Sign Co-Sign Detail Recorded Client Recorded Date Recorded By Document 06/12/18 11:47 DV [id number] 06/12/18 11:51 DV 06/12/18 11:47 Wound Center Nurse 1 [Ulcer Assessment] #6 right medial le cluster -Combined with other wound No -Current Size (cm) - Length 1 -Current Size (cm) - Width 0.7 -Current Size (cm) - Depth 0.1 -Total Square Cm 0.7 -Photo Taken No -Epithelialization None Present -Tunneling No -Undermining/Tunneling No -Circular Undermining No -Exudate Amt Small (1-33%) -Exudate Type Serosanguineous -Wound Margin Distinct, Outline Attached -Granulation Amt None Present (0 %) -Slough/Fibrin Yes -Necrosis Amt Large (67-100%) -Necrotic Tissue Type Adherent Slough -Texture (Jessie-wound Skin Appearance) Scarring -Moisture (Jessie-wound Skin Appearance Dry/Scaly ) -Color (Jessie-wound Skin Appearance) Erythema -Temperature (Jessie-wound Skin No Abnormality Appearance) (Pt Warm) -Tenderness on Palpation (Jessie-wound No Skin Appearance) -Ulcer Cleansing Wound Cleanser -Foul Odor after Cleansing No -Anesthetic Used 4% Lidocaine Solution #5 LEFT MEDIAL. CALF -Combined with other wound No -Current Size (cm) - Length 2.9 -Current Size (cm) - Width 1.8 -Current Size (cm) - Depth 0.1 -Total Square Cm 5.22 -Photo Taken No -Epithelialization None Present -Tunneling No -Undermining/Tunneling No -Circular Undermining No -Exudate Amt Small (1-33%) -Exudate Type Serosanguineous -Wound Margin Distinct, Outline Attached -Granulation Amt Small (1-33%) -Granulation Quality Red -Slough/Fibrin Yes -Necrosis Amt Large (67-100%) -Necrotic Tissue Type Adherent Slough -Texture (Jessie-wound Skin Appearance) Scarring -Moisture (Jessie-wound Skin Appearance Dry/Scaly ) -Color (Jessie-wound Skin Appearance) Erythema -Temperature (Jessie-wound Skin No Abnormality Appearance) (Pt Warm) -Tenderness on Palpation (Jessie-wound No Skin Appearance) -Ulcer Cleansing Wound Cleanser -Foul Odor after Cleansing No -Anesthetic Used 4% Lidocaine Solution [Edema Assessment] -Lower Limb Edema Present Yes -Right Calf (cm) 41.5 -Right Ankle (cm) 23 -Left Calf (cm) 40 -Left Ankle (cm) 23 WC - Nurse 2 - General Ulcer CM Notes Start: 05/21/18 11:29 Freq: Status: Active Protocol: Activity Type Activity Date Activity User E-Sign Co-Sign Detail Recorded Client Recorded Date Recorded By Document 06/12/18 12:02 MW [id number] 06/12/18 12:04 MW 06/12/18 12:02 Wound Center Nurse 2 [Procedure/Treatment] #6 right medial le cluster -Time 12:03 -Correct Patient Yes -Correct Side, Site, Position Yes -Correct Procedure Yes -Procedure Performed Yes -Type of Procedure Debridement -Clinical Debridement Subcutaneous -Post Debridement Size (cm) - Length 0.8 -Post Debridement Size (cm) - Width 0.6 -Post Debridement Size (cm) - Depth 0.1 -Total Square Cm 0.48 -Wound/Ulcer Outcome Not Healed -Ulcer Cleansing Rinsed/ Irrigated with Saline -Foul Odor after Cleansing No -Bioengineered Tissue No -Bleeding Controlled with Pressure -Treatment Response Procedure Tolerated Well #5 LEFT MEDIAL. CALF -Time 12:03 -Correct Patient Yes -Correct Side, Site, Position Yes -Correct Procedure Yes -Procedure Performed Yes -Type of Procedure Debridement -Clinical Debridement Subcutaneous -Post Debridement Size (cm) - Length 2.3 -Post Debridement Size (cm) - Width 1.1 -Post Debridement Size (cm) - Depth 0.1 -Total Square Cm 2.53 -Wound/Ulcer Outcome Not Healed -Ulcer Cleansing Rinsed/ Irrigated with Saline -Foul Odor after Cleansing No -Bioengineered Tissue No -Bleeding Controlled with Pressure -Treatment Response Procedure Tolerated Well [See Physician Procedure note for Specifics] Pain Scale: 0-10 Numeric [Pain] -Is Patient Pain Free? Yes Musculoskeletal: No Muscle Wasting Neurological: Cranial nerves II-XII grossly intact Psych/Mental Status: Normal Affect Debridement Note Post-Debridement Measurements/Treatment WC - Nurse 2 - General Ulcer CM Notes Start: 05/21/18 11:29 Freq: Status: Active Protocol: Activity Type Activity Date Activity User E-Sign Co-Sign Detail Recorded Client Recorded Date Recorded By Document 05/23/18 11:29 MW [id number] 05/23/18 11:33 MW Document 05/29/18 10:56 MW [id number] 05/29/18 10:59 MW Document 06/05/18 12:20 MW [id number] 06/05/18 12:25 MW Document 06/12/18 12:02 MW [id number] 06/12/18 12:04 MW 05/23/18 05/29/18 06/05/18 11:29 10:56 12:20 Wound Center Nurse 2 #8 R ANT LE -Time 12:20 -Correct Patient Yes -Correct Side, Site, Position Yes -Correct Procedure Yes -Procedure Performed No -Post Debridement Size (cm) - Length 0 -Post Debridement Size (cm) - Width 0 -Post Debridement Size (cm) - Depth 0 -Total Square Cm 0 -Wound/Ulcer Outcome Healed- Epithelialized -Ulcer Cleansing Not Cleansed -Foul Odor after Cleansing No -Bleeding Controlled with NA -Treatment Response Procedure Tolerated Well #6 right medial le cluster -Time 11:29 10:56 12:22 -Correct Patient Yes Yes Yes -Correct Side, Site, Position Yes Yes Yes -Correct Procedure Yes Yes Yes -Procedure Performed Yes Yes Yes -Type of Procedure Debridement Debridement Debridement -Clinical Debridement Subcutaneous Subcutaneous Subcutaneous -Post Debridement Size (cm) - Length 0.6 0.6 0.6 -Post Debridement Size (cm) - Width 0.6 0.6 0.6 -Post Debridement Size (cm) - Depth 0.2 0.1 0.1 -Total Square Cm 0.36 0.36 0.36 -Wound/Ulcer Outcome Not Healed Not Healed Not Healed -Ulcer Cleansing Rinsed/ Rinsed/ Rinsed/ Irrigated with Irrigated with Irrigated with Saline Saline Saline -Foul Odor after Cleansing No No No -Bioengineered Tissue No No No -Bleeding Controlled with Pressure Pressure Pressure -Treatment Response Procedure Procedure Procedure Tolerated Well Tolerated Well Tolerated Well #5 LEFT MEDIAL. CALF -Time 11: 10:57 12:22 -Correct Patient Yes Yes Yes -Correct Side, Site, Position Yes Yes Yes -Correct Procedure Yes Yes Yes -Procedure Performed Yes Yes Yes -Type of Procedure Debridement Debridement Debridement -Clinical Debridement Subcutaneous Subcutaneous Subcutaneous -Post Debridement Size (cm) - Length 3.0 2.4 2.5 -Post Debridement Size (cm) - Width 1.5 1.5 1.5 -Post Debridement Size (cm) - Depth 0.1 0.1 0.1 -Total Square Cm 4.50 3.60 3.75 -Wound/Ulcer Outcome Not Healed Not Healed Not Healed -Ulcer Cleansing Rinsed/ Rinsed/ Rinsed/ Irrigated with Irrigated with Irrigated with Saline Saline Saline -Foul Odor after Cleansing No No No -Bioengineered Tissue No No No -Bleeding Controlled with Pressure Pressure Pressure -Treatment Response Procedure Procedure Procedure Tolerated Well Tolerated Well Tolerated Well #7 RT LAT LE -Time 11:29 10:57 -Correct Patient Yes Yes -Correct Side, Site, Position Yes Yes -Correct Procedure Yes Yes -Procedure Performed Yes No -Type of Procedure Debridement -Clinical Debridement Subcutaneous -Post Debridement Size (cm) - Length 0.4 0 -Post Debridement Size (cm) - Width 0.7 0 -Post Debridement Size (cm) - Depth 0.2 0 -Total Square Cm 0.28 0 -Wound/Ulcer Outcome Not Healed Healed- Epithelialized -Ulcer Cleansing Rinsed/ Not Cleansed Irrigated with Saline -Foul Odor after Cleansing No No -Bioengineered Tissue No No -Bleeding Controlled with Pressure NA -Treatment Response Procedure Procedure Tolerated Well Tolerated Well Pain Scale: 0-10 Numeric Is Patient Pain Free? Yes Yes Yes 06/12/18 12:02 Wound Center Nurse 2 #8 R ANT LE -Time -Correct Patient -Correct Side, Site, Position -Correct Procedure -Procedure Performed -Post Debridement Size (cm) - Length -Post Debridement Size (cm) - Width -Post Debridement Size (cm) - Depth -Total Square Cm -Wound/Ulcer Outcome -Ulcer Cleansing -Foul Odor after Cleansing -Bleeding Controlled with -Treatment Response #6 right medial le cluster -Time 12:03 -Correct Patient Yes -Correct Side, Site, Position Yes -Correct Procedure Yes -Procedure Performed Yes -Type of Procedure Debridement -Clinical Debridement Subcutaneous -Post Debridement Size (cm) - Length 0.8 -Post Debridement Size (cm) - Width 0.6 -Post Debridement Size (cm) - Depth 0.1 -Total Square Cm 0.48 -Wound/Ulcer Outcome Not Healed -Ulcer Cleansing Rinsed/ Irrigated with Saline -Foul Odor after Cleansing No -Bioengineered Tissue No -Bleeding Controlled with Pressure -Treatment Response Procedure Tolerated Well #5 LEFT MEDIAL. CALF -Time 12:03 -Correct Patient Yes -Correct Side, Site, Position Yes -Correct Procedure Yes -Procedure Performed Yes -Type of Procedure Debridement -Clinical Debridement Subcutaneous -Post Debridement Size (cm) - Length 2.3 -Post Debridement Size (cm) - Width 1.1 -Post Debridement Size (cm) - Depth 0.1 -Total Square Cm 2.53 -Wound/Ulcer Outcome Not Healed -Ulcer Cleansing Rinsed/ Irrigated with Saline -Foul Odor after Cleansing No -Bioengineered Tissue No -Bleeding Controlled with Pressure -Treatment Response Procedure Tolerated Well #7 RT LAT LE -Time -Correct Patient -Correct Side, Site, Position -Correct Procedure -Procedure Performed -Type of Procedure -Clinical Debridement -Post Debridement Size (cm) - Length -Post Debridement Size (cm) - Width -Post Debridement Size (cm) - Depth -Total Square Cm -Wound/Ulcer Outcome -Ulcer Cleansing -Foul Odor after Cleansing -Bioengineered Tissue -Bleeding Controlled with -Treatment Response Pain Scale: 0-10 Numeric Is Patient Pain Free? Yes Wound debrided: Left lower extremity medial Wound Grade/Stage: Stage II Type of Debridement: Excisional debridement Anesthesia Used: 4% Lidocaine Solution Depth: Down to and including healthy tissue, in the subcutaneous layer Percentage of wound debrided: 100 Instrument Used: 7mm curette Tissue Removed: Slough and devitalized tissue Severity: Fat Layer Exposed Amount of bleeding with debridement: Mild Bleeding Controlled with: Pressure Patient tolerated procedure well - Additional Wound Wound debrided: Right lower extremity medial Wound Grade/Stage: Stage II Type of Debridement: Excisional debridement Anesthesia Used: 4% Lidocaine Solution Depth: Down to and including healthy tissue, in the subcutaneous layer Percentage of wound debrided: 100 Instrument Used: 7mm curette Tissue Removed: Slough and devitalized tissue Severity: Fat Layer Exposed Amount of bleeding with debridement: Mild Bleeding Controlled with: Pressure Patient tolerated procedure: Patient tolerated procedure well Assessment/Plan Active Problems (Last Updated 04/24/18 @ 09:54 by Didi Perez) 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 Diabetes mellitus type 2, poorly controlled. Bilateral lower extremity venous insufficiency. Plan: No new complaints at this time. No significant improvement in wound. Debridement done as documenetd above, procedure was well tolereated. Continue Fibracol to both ulcers with adaptic over top. Leave in place for a week. Elevate lower extremity when seated and in bed. 3M wraps for edema management. Compliance with diuretics and elevation of her lower extremities strongly recommended. Continue Follow-up with PCP for optimal blood sugar management. Follow up in 1 week. Advised to call with any questions or concerns. This note was generated with [employer] software. It may contain incorrect words, spelling, and punctuation that were not noted in checking the note before signing.
[2018-06-19 11:10] VITALS: BP 147/74; PULSE 83; RESP 22; TEMP 37
--- NOTE | 2018-06-19 11:59 | CM.ED ---
Social Work Assessment Date of Assessment: 06/19/2018 Informant: [facility] Staff Reason for Consult: Concerns with living environment Information obtained from: Medical Record and face to face interaction with pt. Living Arrangements: Pt reports to live in a two-story home with a one-level setup. She does go up the stairs every other day to change out the litter box. Claims to scoot down the steps on her way down to avoid a fall. She has 4 cats in the home presently. Denies fleas and states that she has treated the cats. Per staff they have to spray the bed down every time she comes in for an appointment because there are always fleas on the bed. Pt reports to primarily use a cane presently. Other DME consists of a walker, shower chair and handheld shower. Pt reports independence with ADLs including dressing, bathing, meal preparation, and driving. She recently started outpatient therapy at [facility]. States she became weak over the summer from what she believes was a new prescription symptoms. Reports that she has been off of this medication for a few weeks, and has noticed improvements. Pt is unable to confirm which medication she is referring to. Education: Pt only completely 10th grade. Confirms ability to read and write, and denies any comprehension issues. Financial: Reports to be financially stable. Makes approximately $1,003/month through [employer]. Confirms ability to pay for utilities, food and other necessities. Social/Family Stressors: Pt denies any present stressors. No family lives locally, however she does remain in contact with her niece and nephew. Supports: Neighbor, Haven Fischer, and nephew that lives in [place]. Niece lives in [place]. Resources/Agency Involvement: Pt is linked with [facility] for outpatient therapy. ASSESSMENT: Face to face with pt for assessment. Pt presents with pleasant affect as evidenced by smiling and willingness to participate in assessment. Also is unkempt as evidenced by hair being uncombed. Clothes are old, but weather appropriate. Pt is able to maintain conversation and thought process is congruent with discussion. She denies any concerns with present living arrangement. Denies any falls. She does have a visible bruise the size of a golf ball on the left side of her forehead. States she must have hit it on a cupboard. Educated pt to various resources including MOW, CCN, HHC and pt declines all. States that she is tired of people telling me I need to go to a home. Inform her that this is not the intention and our staff wanted to ensure her safety. Pt thanks SW. Will make APS referral based on concerns presented by staff in previous visits. PLAN: Left vm with Kathie Birch, with APS, and made report regarding concern for living conditions as evidenced by visits where the pt has fleas on clothing and in wounds. Also for concern with hx of falls (present bruising on forehead) and future injury as a result. Venus Gonzalez, [employer], MARY
--- NOTE | 2018-06-19 12:15 | PCM.WC.PN ---
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 Bilateral lower extremity swelling. History of Wound: Ms. Jovel 20-year-old who presents to the wound center due to nonhealing left lower extremity wounds/ulcers. Exact etiology is unknown however patient believes it started in early December. She has had no significant wound care but has covered the wound surfaces with Band-Aids. She has noted increased drainage from the wound of clear substance. She was recently seen by primary care physician and started on Augmentin. She has had no cultures done. She feels well otherwise and denies chills, fever, nausea, vomiting or any change in her bowel habit. She is not very compliant with her diabetic care. She is being seen for Dr. De Santiago in her absence for follow up treatment today. She has been tolerating 3M dressings and promogran. Is tolerating Clindamycin as well. Has a few doses left. Has missed some doses. Denies increased drainage, pain or fever or chills. Progress of Wound: Ms. Jovel had been discharged last week however, she failed to use her compression as direected and now returns with significant bilateral lower extremity selling with mutiole ulcers on both extremities. She deneis any significiant lower extremity pain or feeling of unwell. She also denies chills or fever. 05/15/18: Wound is improving. No new complaints at this time. 05/23/2018: Returns with worsening ulcers and bilateral lower swelling. She states that she has not taken her water pills in 2 days. 05/29/18: Still signiifcant bilateral lower extremity swelling. 3M's not properly treated on her lower extremity. Also still has a lot of fleas all over her. 06/05/18: No new complaints at this time. Ulcers are stable. 06/12/18: Stable ulcers. No new complaints. 06/19/18: Still signiifcant lower extremity swelling. Otherwise, no complaints. - Physical Exam Vital Signs Temp Pulse Resp BP 98.6 F 83 22 H 147/74 H 06/19/18 11:10 06/19/18 11:10 06/19/18 11:10 06/19/18 11:10 General: Alert, Oriented x3, Cooperative, No apparent distress HEENT: Atraumatic, Normocephalic Oral: Moist Mucosa Neck: Supple Lungs: Normal air movement Abdomen: Soft, Non Tender Extremities: No cyanosis, Edema Skin: Ulcer/ Wound Wound Measurements and Assessment WC - Nurse 1 - General Ulcer Measurement Start: 05/21/18 11:29 Freq: Status: Active Protocol: Activity Type Activity Date Activity User E-Sign Co-Sign Detail Recorded Client Recorded Date Recorded By Document 06/19/18 11:10 DL [id number] 06/19/18 11:27 DL 06/19/18 11:10 Wound Center Nurse 1 [Ulcer Assessment] #6 right medial le cluster -Current Size (cm) - Length 0.7 -Current Size (cm) - Width 0.7 -Current Size (cm) - Depth 0.1 -Total Square Cm 0.49 -Photo Taken No -Exudate Amt Small (1-33%) -Exudate Type Serosanguineous -Wound Margin Distinct, Outline Attached -Granulation Amt Small (1-33%) -Granulation Quality Pale -Necrosis Amt Small (1-33%) -Necrotic Tissue Type Adherent Slough -Structure Exposed N/A -Texture (Jessie-wound Skin Appearance) Scarring -Moisture (Jessie-wound Skin Appearance Dry/Scaly ) -Color (Jessie-wound Skin Appearance) No Abnormality -Temperature (Jessie-wound Skin No Abnormality Appearance) (Pt Warm) -Ulcer Cleansing Wound Cleanser -Foul Odor after Cleansing No -Anesthetic Used 4% Lidocaine Solution #5 LEFT MEDIAL. CALF -Current Size (cm) - Length 2.5 -Current Size (cm) - Width 1.6 -Current Size (cm) - Depth 0.1 -Total Square Cm 4.00 -Photo Taken No -Exudate Amt Small (1-33%) -Exudate Type Serosanguineous -Wound Margin Distinct, Outline Attached -Granulation Amt Medium (34-66%) -Granulation Quality [place] -Necrosis Amt Medium (34-66%) -Necrotic Tissue Type Adherent Slough -Structure Exposed N/A -Texture (Jessie-wound Skin Appearance) Scarring -Moisture (Jessie-wound Skin Appearance Maceration ) -Color (Jessie-wound Skin Appearance) Rubor -Temperature (Jessie-wound Skin No Abnormality Appearance) (Pt Warm) -Ulcer Cleansing Wound Cleanser -Foul Odor after Cleansing No -Anesthetic Used 4% Lidocaine Solution [Edema Assessment] -Right Calf (cm) 33.5 -Right Ankle (cm) 22 -Left Calf (cm) 40 -Left Ankle (cm) 23 WC - Nurse 2 - General Ulcer CM Notes Start: 05/21/18 11:29 Freq: Status: Active Protocol: Activity Type Activity Date Activity User E-Sign Co-Sign Detail Recorded Client Recorded Date Recorded By Document 06/19/18 11:58 MW [id number] 06/19/18 12:00 MW 06/19/18 11:58 Wound Center Nurse 2 [Procedure/Treatment] #6 right medial le cluster -Time 11:58 -Correct Patient Yes -Correct Side, Site, Position Yes -Correct Procedure Yes -Procedure Performed Yes -Type of Procedure Debridement -Clinical Debridement Subcutaneous -Post Debridement Size (cm) - Length 0.7 -Post Debridement Size (cm) - Width 0.7 -Post Debridement Size (cm) - Depth 0.1 -Total Square Cm 0.49 -Wound/Ulcer Outcome Not Healed -Ulcer Cleansing Rinsed/ Irrigated with Saline -Foul Odor after Cleansing No -Bioengineered Tissue No -Bleeding Controlled with Pressure -Treatment Response Procedure Tolerated Well #5 LEFT MEDIAL. CALF -Time 11:58 -Correct Patient Yes -Correct Side, Site, Position Yes -Correct Procedure Yes -Procedure Performed Yes -Type of Procedure Debridement -Clinical Debridement Subcutaneous -Post Debridement Size (cm) - Length 2.4 -Post Debridement Size (cm) - Width 1.5 -Post Debridement Size (cm) - Depth 0.1 -Total Square Cm 3.60 -Wound/Ulcer Outcome Not Healed -Ulcer Cleansing Rinsed/ Irrigated with Saline -Foul Odor after Cleansing No -Bioengineered Tissue No -Bleeding Controlled with Pressure -Treatment Response Procedure Tolerated Well [See Physician Procedure note for Specifics] Pain Scale: 0-10 Numeric [Pain] -Is Patient Pain Free? Yes Musculoskeletal: No Muscle Wasting Neurological: Cranial nerves II-XII grossly intact Psych/Mental Status: Normal Affect Debridement Note Post-Debridement Measurements/Treatment WC - Nurse 2 - General Ulcer CM Notes Start: 05/21/18 11:29 Freq: Status: Active Protocol: Activity Type Activity Date Activity User E-Sign Co-Sign Detail Recorded Client Recorded Date Recorded By Document 05/23/18 11:29 MW [id number] 05/23/18 11:33 MW Document 05/29/18 10:56 MW [id number] 05/29/18 10:59 MW Document 06/05/18 12:20 MW [id number] 06/05/18 12:25 MW Document 06/12/18 12:02 MW [id number] 06/12/18 12:04 MW Document 06/19/18 11:58 MW [id number] 06/19/18 12:00 MW 05/23/18 05/29/18 06/05/18 11:29 10:56 12:20 Wound Center Nurse 2 #8 R ANT LE -Time 12:20 -Correct Patient Yes -Correct Side, Site, Position Yes -Correct Procedure Yes -Procedure Performed No -Post Debridement Size (cm) - Length 0 -Post Debridement Size (cm) - Width 0 -Post Debridement Size (cm) - Depth 0 -Total Square Cm 0 -Wound/Ulcer Outcome Healed- Epithelialized -Ulcer Cleansing Not Cleansed -Foul Odor after Cleansing No -Bleeding Controlled with NA -Treatment Response Procedure Tolerated Well #6 right medial le cluster -Time 11:29 10:56 12:22 -Correct Patient Yes Yes Yes -Correct Side, Site, Position Yes Yes Yes -Correct Procedure Yes Yes Yes -Procedure Performed Yes Yes Yes -Type of Procedure Debridement Debridement Debridement -Clinical Debridement Subcutaneous Subcutaneous Subcutaneous -Post Debridement Size (cm) - Length 0.6 0.6 0.6 -Post Debridement Size (cm) - Width 0.6 0.6 0.6 -Post Debridement Size (cm) - Depth 0.2 0.1 0.1 -Total Square Cm 0.36 0.36 0.36 -Wound/Ulcer Outcome Not Healed Not Healed Not Healed -Ulcer Cleansing Rinsed/ Rinsed/ Rinsed/ Irrigated with Irrigated with Irrigated with Saline Saline Saline -Foul Odor after Cleansing No No No -Bioengineered Tissue No No No -Bleeding Controlled with Pressure Pressure Pressure -Treatment Response Procedure Procedure Procedure Tolerated Well Tolerated Well Tolerated Well #5 LEFT MEDIAL. CALF -Time 11:29 10:57 12:22 -Correct Patient Yes Yes Yes -Correct Side, Site, Position Yes Yes Yes -Correct Procedure Yes Yes Yes -Procedure Performed Yes Yes Yes -Type of Procedure Debridement Debridement Debridement -Clinical Debridement Subcutaneous Subcutaneous Subcutaneous -Post Debridement Size (cm) - Length 3.0 2.4 2.5 -Post Debridement Size (cm) - Width 1.5 1.5 1.5 -Post Debridement Size (cm) - Depth 0.1 0.1 0.1 -Total Square Cm 4.50 3.60 3.75 -Wound/Ulcer Outcome Not Healed Not Healed Not Healed -Ulcer Cleansing Rinsed/ Rinsed/ Rinsed/ Irrigated with Irrigated with Irrigated with Saline Saline Saline -Foul Odor after Cleansing No No No -Bioengineered Tissue No No No -Bleeding Controlled with Pressure Pressure Pressure -Treatment Response Procedure Procedure Procedure Tolerated Well Tolerated Well Tolerated Well #7 RT LAT LE -Time 11:29 10:57 -Correct Patient Yes Yes -Correct Side, Site, Position Yes Yes -Correct Procedure Yes Yes -Procedure Performed Yes No -Type of Procedure Debridement -Clinical Debridement Subcutaneous -Post Debridement Size (cm) - Length 0.4 0 -Post Debridement Size (cm) - Width 0.7 0 -Post Debridement Size (cm) - Depth 0.2 0 -Total Square Cm 0.28 0 -Wound/Ulcer Outcome Not Healed Healed- Epithelialized -Ulcer Cleansing Rinsed/ Not Cleansed Irrigated with Saline -Foul Odor after Cleansing No No -Bioengineered Tissue No No -Bleeding Controlled with Pressure NA -Treatment Response Procedure Procedure Tolerated Well Tolerated Well Pain Scale: 0-10 Numeric Is Patient Pain Free? Yes Yes Yes 06/12/18 06/19/18 12:02 11:58 Wound Center Nurse 2 #8 R ANT LE -Time -Correct Patient -Correct Side, Site, Position -Correct Procedure -Procedure Performed -Post Debridement Size (cm) - Length -Post Debridement Size (cm) - Width -Post Debridement Size (cm) - Depth -Total Square Cm -Wound/Ulcer Outcome -Ulcer Cleansing -Foul Odor after Cleansing -Bleeding Controlled with -Treatment Response #6 right medial le cluster -Time 12:03 11:58 -Correct Patient Yes Yes -Correct Side, Site, Position Yes Yes -Correct Procedure Yes Yes -Procedure Performed Yes Yes -Type of Procedure Debridement Debridement -Clinical Debridement Subcutaneous Subcutaneous -Post Debridement Size (cm) - Length 0.8 0.7 -Post Debridement Size (cm) - Width 0.6 0.7 -Post Debridement Size (cm) - Depth 0.1 0.1 -Total Square Cm 0.48 0.49 -Wound/Ulcer Outcome Not Healed Not Healed -Ulcer Cleansing Rinsed/ Rinsed/ Irrigated with Irrigated with Saline Saline -Foul Odor after Cleansing No No -Bioengineered Tissue No No -Bleeding Controlled with Pressure Pressure -Treatment Response Procedure Procedure Tolerated Well Tolerated Well #5 LEFT MEDIAL. CALF -Time 12:03 11:58 -Correct Patient Yes Yes -Correct Side, Site, Position Yes Yes -Correct Procedure Yes Yes -Procedure Performed Yes Yes -Type of Procedure Debridement Debridement -Clinical Debridement Subcutaneous Subcutaneous -Post Debridement Size (cm) - Length 2.3 2.4 -Post Debridement Size (cm) - Width 1.1 1.5 -Post Debridement Size (cm) - Depth 0.1 0.1 -Total Square Cm 2.53 3.60 -Wound/Ulcer Outcome Not Healed Not Healed -Ulcer Cleansing Rinsed/ Rinsed/ Irrigated with Irrigated with Saline Saline -Foul Odor after Cleansing No No -Bioengineered Tissue No No -Bleeding Controlled with Pressure Pressure -Treatment Response Procedure Procedure Tolerated Well Tolerated Well #7 RT LAT LE -Time -Correct Patient -Correct Side, Site, Position -Correct Procedure -Procedure Performed -Type of Procedure -Clinical Debridement -Post Debridement Size (cm) - Length -Post Debridement Size (cm) - Width -Post Debridement Size (cm) - Depth -Total Square Cm -Wound/Ulcer Outcome -Ulcer Cleansing -Foul Odor after Cleansing -Bioengineered Tissue -Bleeding Controlled with -Treatment Response Pain Scale: 0-10 Numeric Is Patient Pain Free? Yes Yes Wound debrided: Left lower extremity ( medial ) Wound Grade/Stage: Stage II Type of Debridement: Excisional debridement Anesthesia Used: 4% Lidocaine Solution Depth: Down to and including healthy tissue, in the subcutaneous layer Percentage of wound debrided: 100 Instrument Used: #15 blade Tissue Removed: Slough and devitalized tissue Severity: Fat Layer Exposed Amount of bleeding with debridement: Mild Bleeding Controlled with: Pressure Patient tolerated procedure well - Additional Wound Wound debrided: Right lower extremity Wound Grade/Stage: Stage II Type of Debridement: Excisional debridement Anesthesia Used: 4% Lidocaine Solution Depth: Down to and including healthy tissue, in the subcutaneous layer Percentage of wound debrided: 100 Instrument Used: #15 blade Tissue Removed: Slough and devitalized tissue Severity: Fat Layer Exposed Amount of bleeding with debridement: Mild Bleeding Controlled with: Pressure Patient tolerated procedure: Patient tolerated procedure well Assessment/Plan Active Problems (Last Updated 04/24/18 @ 09:54 by Didi Perez) 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 Diabetes mellitus type 2, poorly controlled. Bilateral lower extremity venous insufficiency. Plan: No new complaints at this time. No significant improvement in wound. persistent lower extremity swelling. patient states that she has not been complaint with her diuretics and putting her feet up. Debridement done as documenetd above, procedure was well tolerated. Continue Pomogran to both ulcers with adaptic over top. Leave in place for a week. Elevate lower extremity when seated and in bed. 3M wraps for edema management. Compliance with diuretics and elevation of her lower extremities strongly recommended. Continue Follow-up with PCP for optimal blood sugar management. Follow up in 1 week. Advised to call with any questions or concerns. This note was generated with [employer] software. It may contain incorrect words, spelling, and punctuation that were not noted in checking the note before signing.
== END 2018-06-19 23:59 ==
LOC: WC 10:30
PROVIDERS: Family Provider Family Medicine; PCP Family Medicine; Referring Provider Internal Medicine; Visit Provider Internal Medicine
DX: E11.622 Type 2 diabetes mellitus with other skin ulcer (principal); L97.822 Non-pressure chronic ulcer of other part of left lower leg with fat layer exposed; L97.812 Non-pressure chronic ulcer of other part of right lower leg with fat layer exposed; I87.2 Venous insufficiency (chronic) (peripheral); M79.89 Other specified soft tissue disorders; E11.65 Type 2 diabetes mellitus with hyperglycemia
CPT/HCPCS: 11042; 29581; 99213; G0463

== ENCOUNTER 2018-06-24 12:09 | Emergency (ER) | payer MEDICARE, OTHER, SELFPAY ==
[2018-06-24 12:10] VITALS: BP 149/72; PULSE 74; RESP 14; TEMP 36.2; O2SAT 100; BMI 25.4
--- NOTE | 2018-06-24 13:24 | ED.VISSUMM ---
- ER Visit Summary Date of Service: 06/24/18 Chief Complaint: [Medical exam] History of Present Illness: The patient is a 83 F [to the emergency department from the parking lot for evaluation. Patient apparently was in her car sleeping and initially somebody noticed her in the vehicle and a rapid response team was called to her vehicle. Patient states that she thought she had an appointment with her wholesale representative today here at the hospital and found out that it is not until tomorrow so she went out to her vehicle to write a check and became tired and decided to sleep in her car. Patient states that she often stays up very late and was up until 3 or 4 in the morning therefore she was tired. Patient has actually no complaints. Patient states that she really did not want to come to the hospital however they talked her into getting evaluated. Patient denies any recent illness. She denies any chest pain. She denies any headache. Denies any shortness of breath. Patient has actually no complaints.] Physical Examination: [HEENT-PERRLA, EOMI. Cranial nerves II through XII grossly intact. TMs clear. Mucous membranes moist. No adenopathy. Cardiovascular-regular rate and rhythm without murmur or ectopy Lungs-clear to auscultation, chest wall stable without crepitus or subcu emphysema Abdomen-normoactive bowel sounds, soft, nontender, no rebound or rigidity, no peritoneal signs. Neuro exam-and O x3. No focal neural deficits. Extremities-intact ?4, normal range of motion, normal pulses, atraumatic]. Patient does have edema both lower extremities. Test Results: [None indicated and patient refused] Emergency Department Course and Treatment: [None indicated] Treatment Plan: [Patient has a follow-up appointment with her wholesale representative in 2 days she will keep that because she states that she had to cancel the one for tomorrow.] Disposition: [Discharged home in stable condition] Impression: [Medical screening exam-no significant findings] This note was generated with [employer] software. It may contain incorrect words, spelling, and punctuation that were not noted in review of the chart prior to signing ED Disposition - Plan for ED Patient: Chief Complaint: General Illness Referrals: Chad Chang MD [Primary Care Provider] -
--- NOTE | 2018-06-24 13:28 | ED.DCSUM_ITS ---
- ER Visit Summary Date of Service: 06/24/18 Chief Complaint: [Medical exam] History of Present Illness: The patient is a 83 F [to the emergency department from the parking lot for evaluation. Patient apparently was in her car sleeping and initially somebody noticed her in the vehicle and a rapid response team was called to her vehicle. Patient states that she thought she had an appointment with her long term care social worker today here at the hospital and found out that it is not until tomorrow so she went out to her vehicle to write a check and became tired and decided to sleep in her car. Patient states that she often stays up very late and was up until 3 or 4 in the morning therefore she was tired. Patient has actually no complaints. Patient states that she really did not want to come to the hospital however they talked her into getting evaluated. Patient denies any recent illness. She denies any chest pain. She denies any headache. Denies any shortness of breath. Patient has actually no complaints.] Physical Examination: [HEENT-PERRLA, EOMI. Cranial nerves II through XII grossly intact. TMs clear. Mucous membranes moist. No adenopathy. Cardiovascular-regular rate and rhythm without murmur or ectopy Lungs-clear to auscultation, chest wall stable without crepitus or subcu emphysema Abdomen-normoactive bowel sounds, soft, nontender, no rebound or rigidity, no peritoneal signs. Neuro exam-and O x3. No focal neural deficits. Extremities-intact ?4, normal range of motion, normal pulses, atraumatic]. Patient does have edema both lower extremities. Test Results: [None indicated and patient refused] Emergency Department Course and Treatment: [None indicated] Treatment Plan: [Patient has a follow-up appointment with her long term care social worker in 2 days she will keep that because she states that she had to cancel the one for tomorrow.] Disposition: [Discharged home in stable condition] Impression: [Medical screening exam-no significant findings] This note was generated with [employer]ation software. It may contain incorrect words, spelling, and punctuation that were not noted in review of the chart prior to signing ED Disposition - Plan for ED Patient: Chief Complaint: General Illness Referrals: hCad Chang MD [Primary Care Provider] -
--- NOTE | 2018-06-24 13:31 | ED.DEP ---
ED Disposition - Plan for ED Patient: Chief Complaint: General Illness Instructions: ED Screening Exam Medical Nonurgent Referrals: Chad Chang MD [Primary Care Provider] - 3-5 Days
--- NOTE | 2018-06-24 13:45 | ED.RN ---
pt had RN attempt to wheel her out to her car. Realized it was outside in parking lot not on ED ramp. Volunteer assisted pt to car.
== END 2018-06-24 13:46 | disposition home or self-care (01) ==
LOC: ED 13:37
PROVIDERS: Emergency Provider Emergency Medicine; Family Provider Family Medicine; PCP Family Medicine
DX: Z00.00 Encounter for general adult medical examination without abnormal findings (principal); E11.9 Type 2 diabetes mellitus without complications; I10 Essential (primary) hypertension; E78.00 Pure hypercholesterolemia, unspecified; I48.91 Unspecified atrial fibrillation; F03.90 Unspecified dementia, unspecified severity, without behavioral disturbance, psychotic disturbance, mood disturbance, and anxiety
CPT/HCPCS: 99282

== ENCOUNTER 2018-07-02 13:30 | Outpatient (RCR) | payer MEDICARE, OTHER, SELFPAY ==
--- NOTE | 2018-06-11 15:33 | HP.OTEVAL_ITS ---
Patient's Visit Information BREN JIMÉNEZ is a 83 year old F, referred to Occupational Therapy by Martha De Santiago MD, with a diagnosis of dx ulcer left lower leg, venous insufficiency, DMII, right LE ulncer. Date of Evaluation: 06/11/18 Occupational Therapist: ILENE Sarkar/Ves[place], CHT - Subjective Subjective: This 83 year old female arrived 30 min late for her intial OT eval with dx ulcer left lower leg, venous insufficiency, DMII, right LE ulncer.pt states she has been going to the wound center for about three months. pt state she started having increase swelling in her LE after her doctor chaged her medications. pt states she has always used compression socks but states she has not used them because they were more difficult getting them on. pt arrives with 3m wraps from the wound center and will be returning to wound center tomorrow. pt is unable to recall her compression of her socks or when she last bought them. Pt states she is active with taking care of her yard, using the weed eater and other outside tasks. - Objective Objective/Observation: pt arrives to center ambulating without device. Use of wheel chair to get to OT area- pt noted to have 3M wrap to bilateral LE- - skin dry and flaking, pitting edema 1, above wraps- pt denies pain, but reports burning sensation on the bottoms of her feet.Facility does not have wraps to place pt back into so wraps were not removed- pt demo understanding and will go to the wound center 06-12-18. Pt demo need for ed on dx, and mtg of LE edema- - Lower Limb Functional Index Lower Extremity Functional Score: 43 - Goals Demonstrate adequate knowledge of self-massage by 2nd week: Yes Demonstrate adequate knowledge skin care/prec by 2nd week: Yes Demonstrate adequate knowledge therapeutic exercises by d/c: Yes Select approp compression garment w/donning/care/wear by d/c: Yes Voice need to replace compression garment every 4-6mo by dc: Yes - Rehabilitation General Assessment: Pt demo with bilateral LE edema- decreased understanding of skin care and use of compression socks. Pt demo need for ed. on the above noted- pt was ed. on the need of new compression socks 20-30mmHg, sizing and wear/care of garments. pt was also ed on compression alternatives as [employer]- however pt states she can not afford the compression alternatives. Pt agree to buy 20- 30mmHg compression socks and take them to her wound center apt tomorrow. pt to return to ensure compression socks fit well and assist pt with donning batsheva. if pt demo difficulty with donning/doffing of garment. Rehabilitation Potential: Questionable - Anticipated Interventions Anticipated Interventions: Education re assistive Equipment, Education re Diagnosis, Education re Life-long lymphedema Management, Education re Skin Care and Precautions, Education re Correct Donning Tech,Care&Wearing Sched Comp Garments, Home Program - Visit Plan General Plan: Pt to return with compression socks so therapist can ensure fit a nd pts following HEP of skin care, lymph stim ex. TEXT: Thank you for the opportunity to evaluate your patient. For Medicare and Medicare HMO plans, please review the plan of care and approve it. It will need to be FAXED BACK to us at [phone] for Medicare purposes. Please let me know if there are questions or concerns regarding this plan of care. Physician Signature: Date:
--- NOTE | 2018-06-25 08:19 | HP.PTEVAL_ITS ---
Patient's Visit Information BREN JIMÉNEZ is a 83 year old F referred to Physical Therapy by Martha De Santiago MD with a diagnosis of lumbar pain, BLE pain, severe PAD and gait disturbance. Date of Evaluation: 06/17/18 Physical Therapist: Luis Hollingsworth - Visit Plan Frequency: 2x /Week Duration: 4 Weeks Plan: Start with core/BLE strengthening. Add in stability/balance activities. Educate in proper use of SPC vs FWW. Pt. prefers SPC at this point in time. - Subjective Subjective: Pt. is here today for her initial evaluation with diagnosis of back and pain, severe PAD, gait disturbance and possible need for AD. Pt. reports having increased lumbar and leg pain after starting to take new cholesterol medications and subseqeuntly stopped taking. Pt. lives by her self, taking care of her cats. Pt. uses a single point cane in community, but furniture walks at home. She reports that her back and legs are still bothering her limiting her ability and tolerance to many household activities. Pt. denies N/T in either LE. Pt. continues to drive, but reports I feel like I am slowing down. 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 - Pain Low back Pain Intensity (Out of 10): 4 Pain Intensity Range: 2, 6 BLes Pain Intensity (Out of 10): 2 Pain Intensity Range: 1, 5 - Objective POSTURE: Pt. has slouched posture in sitting, rounded shoulders, PPT. Pt. has a very flexed posture in stance, wide LEIGH ANN with B hip ER and use of cane for stability. Pt. has difficulty correcting posture without manual assistance. PALPATION: Pt. has increased tenderness throughout lumbar spine and erector spine, no pain with palpation of BLEs. NEURO: Pt. has 1+ patellar and 2+ achilles DTR bilaterally. Pt. is viktoriya to rise on toes, but no heels in stance and requires balance aide to do so. ROM: LUMBAR SPINE: flexion nil loss NE, ext max loss increase NW, SB R mod loss increase NW, SB L mod loss increase NW, rotation mod/max loss bilat increase NW. Pt. has tight bilateral HS and hip fl exors as well. MMT: Pt. has generall 4/5 strenght thoughout BLEs. Pt. has poor core strength. Functional quad weakness noted as well with sit to stand. GAIT: pt. ambulates with SPC with wide LEIGH ANN and hip Er. Pt. has very flexed posture in stance and gait. Pt. has slwo methodical pattern. I recommended uses of FWW, but pt. declined at this time. I talked to her that it would also take the stress of her back, but contiuned to decline. - Goals Goal 1:: Pt. to be I with HEP. Goal Time Frame: 4-6 Weeks Goal 2:: Pt. to have increased lumbar Rom by 25% in all directions without increase in symptoms. Goal Time Frame: 4-6 Weeks Goal 3:: Pt. to have increased BLE strength by 1/2 grade of all effected musculature. Goal Time Frame: 4-6 Weeks Goal 4:: Pt. to ambulat with single point cane vs FWW community distances MARK to increase safety. Goal Time Frame: 4-6 Weeks - Rehabilitation Potential Physical Therapy Diagnosis: Pt. has signs and symptoms consistent with lumbar pain, BLE pain, severe PAD and gait disturbance. Pt. would benefit from PT to increase lumbar ROM, BLE strength and increase stability with gait. Rehabilitation Potential: Fair - Anticipated Interventions Patient/Client Instruction: Educate patient on: Condition, Plan of Care, Risk Factors, Benefits of Fitness Program For the Purpose of:: To improve safety, To improve health and function, To foster healthy habits, To improve decision making, To facilitate caregiver knowledge, To improve self management, To prevent re-injury, To improve ability to perform tasks related to life management, To improve tolerance to ADL's Therapeutic Exercise to Include: Strength training, Power training, Endurance training, Balance training, Postural training, Flexibilty training, Passive ROM, Active ROM, Dynamic Lumbar Stabilization For the Purpose of:: To decrease pain, To decrease swelling/inflammation, To increase ROM, To improve nutrient delivery to tissue, To improve muscle performance and motor function, To improve gait and locomotor functions, To improve health of tissue, To decrease soft tissue restriction, To increase flexibility/ROM, To improve endurance, To improve balance, To improve safety with gait Cryotherapy (ice pack, ice massage): Yes Thermo therapy (hot pack): Yes Ultrasound (thermal/non thermal): Yes For the Purpose of:: To decrease pain, To decrease swelling/inflammation, To increase ROM, To improve nutrient delivery to tissue Thank you for the opportunity to evaluate your patient. For Medicare and Medicare HMO plans, please review the plan of care and approve it. It will need to be FAXED BACK to us at [phone] for Medicare purposes. Please let me know if there are questions or concerns regarding this plan of care. Physician Signature: Date:
--- NOTE | 2018-10-16 12:26 | HP.PT.NRP ---
HP - Discharge Summary (1) - Patient Information Samantha Jovel was seen in my office for initial evaluation on 06/17/18. The following Plan of Care was established for this patient: Initial Frequency: 2x /Week Initial Duration: 4 Weeks - Anticipated Interventions Patient/Client Instruction: Educate patient on: Condition, Plan of Care, Risk Factors, Benefits of Fitness Program For the Purpose of:: To improve safety, To improve health and function, To foster healthy habits, To improve decision making, To facilitate caregiver knowledge, To improve self management, To prevent re-injury, To improve ability to perform tasks related to life management, To improve tolerance to ADL's Therapeutic Exercise to Include: Strength training, Power training, Endurance training, Balance training, Postural training, Flexibilty training, Passive ROM, Active ROM, Dynamic Lumbar Stabilization For the Purpose of:: To decrease pain, To decrease swelling/inflammation, To increase ROM, To improve nutrient delivery to tissue, To improve muscle performance and motor function, To improve gait and locomotor functions, To improve health of tissue, To decrease soft tissue restriction, To increase flexibility/ROM, To improve endurance, To improve balance, To improve safety with gait Cryotherapy (ice pack, ice massage): Yes Thermo therapy (hot pack): Yes Ultrasound (thermal/non thermal): Yes For the Purpose of:: To decrease pain, To decrease swelling/inflammation, To increase ROM, To improve nutrient delivery to tissue This patient was last seen in our office 07/02/18. Pertinent comments regarding their Physical therapy will appear below: Pt. was treated for her general debility, balance. Pt. was treated with BLE strenthening and balance exercises. Pt. did not attend her last few visits and has not been seen in several months. Pt. will be DC from PT at this point in time. At this point I will be discontinuing this patient from physical therapy. I would be happy to see this patient again in the future if found appropriate by the physician. Thank you! HIWOT RussT
--- NOTE | 2018-10-16 14:24 | HP.OTDCNRP_ITS ---
HP - Discharge Summary - Patient Information Samantha Jovel was seen in my office for initial evaluation on 06/11/18. The following Plan of Care was established for this patient: - Anticipated Interventions Anticipated Interventions: Education re assistive Equipment, Education re D iagnosis, Education re Life-long lymphedema Management, Education re Skin Care and Precautions, Education re Correct Donning Tech,Care&Wearing Sched Comp Garments, Home Program This patient was last seen in our office 06/11/18. Pertinent comments regarding their Occupational therapy will appear below: pt was seen initial OT eval only, due to timelapse in services pt d/c at this time. At this point I will be discontinuing this patient from occupational therapy. I would be happy to see this patient again in the future if found appropriate by the physician. Thank you! Sandy Rodriguez, OTR/L, CHT
== END 2018-07-02 19:00 | disposition home or self-care (01) ==
LOC: PT 13:30
PROVIDERS: Family Provider Family Medicine; PCP Family Medicine; Referring Provider Family Medicine; Visit Provider Family Medicine
DX: M54.9 Dorsalgia, unspecified (principal); M79.606 Pain in leg, unspecified; R26.89 Other abnormalities of gait and mobility; I73.9 Peripheral vascular disease, unspecified
CPT/HCPCS: 97035; 97110; 97163; 97166

== ENCOUNTER 2018-07-03 11:30 | Outpatient (RCR) | payer MEDICARE, OTHER, SELFPAY ==
[2018-06-20 00:56] VITALS: BP 147/74; PULSE 83; RESP 22; TEMP 37
[2018-06-26 11:24] VITALS: BP 165/75; PULSE 62; RESP 18; TEMP 36.4
--- NOTE | 2018-06-26 12:10 | PN.PCM_ITS ---
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 Bilateral lower extremity swelling. History of Wound: Ms. Jovel 20-year-old who presents to the wound center due to nonhealing left lower extremity wounds/ulcers. Exact etiology is unknown however patient believes it started in early December. She has had no significant wound care but has covered the wound surfaces with Band-Aids. She has noted increased drainage from the wound of clear substance. She was recently seen by primary care physician and started on Augmentin. She has had no cultures done. She feels well otherwise and denies chills, fever, nausea, vomiting or any change in her bowel habit. She is not very compliant with her diabetic care. She is being seen for Dr. De Santiago in her absence for follow up treatment today. She has been tolerating 3M dressings and promogran. Is tolerating Clindamycin as well. Has a few doses left. Has missed some doses. Denies increased drainage, pain or fever or chills. Progress of Wound: Ms. Jovel had been discharged last week however, she failed to use her compression as direected and now returns with significant bilateral lower extremity selling with mutiole ulcers on both extremities. She deneis any significiant lower extremity pain or feeling of unwell. She also denies chills or fever. 05/15/18: Wound is improving. No new complaints at this time. 05/23/2018: Returns with worsening ulcers and bilateral lower swelling. She states that she has not taken her water pills in 2 days. 05/29/18: Still signiifcant bilateral lower extremity swelling. 3M's not properly treated on her lower extremity. Also still has a lot of fleas all over her. 06/05/18: No new complaints at this time. Ulcers are stable. 06/12/18: Stable ulcers. No new complaints. 06/19/18: Still signiifcant lower extremity swelling. Otherwise, no complaints. 06/26/2018: She presents with a new left foot wound which initially started out as a blister. She admits to having some problems with issues which she was also time. Has a deformity around that area. She still has significant lower extremity swelling. She states that she slept sleept sitting in her chair. - Physical Exam Vital Signs Temp Pulse Resp BP 97.5 F L 62 18 165/75 H 06/26/18 11:24 06/26/18 11:24 06/26/18 11:24 06/26/18 11:24 General: Alert, Oriented x3, Cooperative, No apparent distress HEENT: Atraumatic Oral: Moist Mucosa Neck: Supple Lungs: Normal air movement Abdomen: Non Tender Extremities: No cyanosis, Edema Skin: Ulcer/ Wound Wound Measurements and Assessment WC - Nurse 1 - General Ulcer Measurement Start: 06/26/18 11:24 Freq: Status: Active Protocol: Activity Type Activity Date Activity User E-Sign Co-Sign Detail Recorded Client Recorded Date Recorded By Document 06/26/18 11:24 [id number] 06/26/18 11:45 RB 06/26/18 11:24 Wound Center Nurse 1 [Ulcer Assessment] 9. L plantar foot -Combined with other wound No -Current Size (cm) - Length 1 -Current Size (cm) - Width 2.4 -Current Size (cm) - Depth 0.2 -Total Square Cm 2.4 -Photo Taken Yes -Tunneling No -Undermining/Tunneling No -Circular Undermining No -Classification - Thickness Full Thickness without Exposed Support Structure -Exudate Amt Small (1-33%) -Exudate Type Serosanguineous -Wound Margin Distinct, Outline Attached -Granulation Amt Large (67-100%) -Granulation Quality [place] -Slough/Fibrin Yes -Necrosis Amt Small (1-33%) -Necrotic Tissue Type Adherent Slough -Structure Exposed N/A -Texture (Jessie-wound Skin Appearance) Assessed -Moisture (Jessie-wound Skin Appearance Maceration ) -Color (Jessie-wound Skin Appearance) Assessed -Temperature (Jessie-wound Skin No Abnormality Appearance) (Pt Warm) -Tenderness on Palpation (Jessie-wound No Skin Appearance) -Ulcer Cleansing Wound Cleanser -Foul Odor after Cleansing No -Anesthetic Used 4% Lidocaine Solution #6 right medial le cluster -Combined with other wound No -Current Size (cm) - Length 0.7 -Current Size (cm) - Width 0.6 -Current Size (cm) - Depth 0.2 -Total Square Cm 0.42 -Photo Taken No -Tunneling No -Undermining/Tunneling No -Circular Undermining No -Classification - Thickness Full Thickness without Exposed Support Structure -Exudate Amt Small (1-33%) -Exudate Type Serosanguineous -Wound Margin Distinct, Outline Attached -Granulation Amt Medium (34-66%) -Granulation Quality [place] -Slough/Fibrin Yes -Necrosis Amt Medium (34-66%) -Necrotic Tissue Type Adherent Slough -Structure Exposed N/A -Texture (Jessie-wound Skin Appearance) Assessed -Moisture (Jessie-wound Skin Appearance Assessed ) -Color (Jessie-wound Skin Appearance) Assessed -Temperature (Jessie-wound Skin No Abnormality Appearance) (Pt Warm) -Tenderness on Palpation (Jessie-wound No Skin Appearance) -Ulcer Cleansing Wound Cleanser -Foul Odor after Cleansing No -Anesthetic Used 4% Lidocaine Solution #5 LEFT MEDIAL. CALF -Combined with other wound No -Current Size (cm) - Length 2.5 -Current Size (cm) - Width 1.5 -Current Size (cm) - Depth 0.1 -Total Square Cm 3.75 -Photo Taken No -Tunneling No -Undermining/Tunneling No -Circular Undermining No -Classification - Thickness Full Thickness without Exposed Support Structure -Exudate Amt Small (1-33%) -Exudate Type Serosanguineous -Wound Margin Distinct, Outline Attached -Granulation Amt Medium (34-66%) -Granulation Quality [place] -Slough/Fibrin Yes -Necrosis Amt Medium (34-66%) -Necrotic Tissue Type Adherent Slough -Structure Exposed N/A -Texture (Jessie-wound Skin Appearance) Assessed -Moisture (Jessie-wound Skin Appearance Assessed ) -Color (Jessie-wound Skin Appearance) Assessed -Temperature (Jessie-wound Skin No Abnormality Appearance) (Pt Warm) -Foul Odor after Cleansing No -Anesthetic Used 4% Lidocaine Solution #7 RT LAT LE -Combined with other wound No -Current Size (cm) - Length 0 -Current Size (cm) - Width 0 -Current Size (cm) - Depth 0 -Total Square Cm 0 -Photo Taken Yes -Tunneling No -Undermining/Tunneling No -Circular Undermining No -Exudate Amt None Present (0 %) -Wound Margin Distinct, Outline Attached -Granulation Amt Large (67-100%) -Granulation Quality [place] -Slough/Fibrin No -Necrosis Amt None Present (0 %) -Texture (Jessie-wound Skin Appearance) Assessed -Moisture (Jessie-wound Skin Appearance Assessed ) -Color (Jessie-wound Skin Appearance) Assessed -Temperature (Jessie-wound Skin No Abnormality Appearance) (Pt Warm) -Tenderness on Palpation (Jessie-wound No Skin Appearance) -Ulcer Cleansing Wound Cleanser [Edema Assessment] -Lower Limb Edema Present Yes -Right Calf (cm) 45 -Right Ankle (cm) 24.3 -Left Calf (cm) 45 -Left Ankle (cm) 24.2 WC - Nurse 2 - General Ulcer CM Notes Start: 06/26/18 11:24 Freq: Status: Active Protocol: Activity Type Activity Date Activity User E-Sign Co-Sign Detail Recorded Client Recorded Date Recorded By Document 06/26/18 11:57 MW [id number] 06/26/18 12:01 MW 06/26/18 11:57 Wound Center Nurse 2 [Procedure/Treatment] 9. L plantar foot -Time 11:57 -Correct Patient Yes -Correct Side, Site, Position Yes -Correct Procedure Yes -Procedure Performed Yes -Type of Procedure Debridement -Clinical Debridement Subcutaneous -Post Debridement Size (cm) - Length 1.0 -Post Debridement Size (cm) - Width 2.1 -Post Debridement Size (cm) - Depth 0.2 -Total Square Cm 2.10 -Wound/Ulcer Outcome Not Healed -Ulcer Cleansing Rinsed/ Irrigated with Saline -Foul Odor after Cleansing No -Bioengineered Tissue No -Bleeding Controlled with Pressure -Treatment Response Procedure Tolerated Well #6 right medial le cluster -Time 11:57 -Correct Patient Yes -Correct Side, Site, Position Yes -Correct Procedure Yes -Procedure Performed Yes -Type of Procedure Debridement -Clinical Debridement Subcutaneous -Post Debridement Size (cm) - Length 0.8 -Post Debridement Size (cm) - Width 0.6 -Post Debridement Size (cm) - Depth 0.1 -Total Square Cm 0.48 -Wound/Ulcer Outcome Not Healed -Ulcer Cleansing Rinsed/ Irrigated with Saline -Foul Odor after Cleansing No -Bioengineered Tissue No -Bleeding Controlled with Pressure -Treatment Response Procedure Tolerated Well #5 LEFT MEDIAL. CALF -Time 11:57 -Correct Patient Yes -Correct Side, Site, Position Yes -Correct Procedure Yes -Procedure Performed Yes -Type of Procedure Debridement -Clinical Debridement Subcutaneous -Post Debridement Size (cm) - Length 2.2 -Post Debridement Size (cm) - Width 1.6 -Post Debridement Size (cm) - Depth 0.1 -Total Square Cm 3.52 -Wound/Ulcer Outcome Not Healed -Ulcer Cleansing Rinsed/ Irrigated with Saline -Foul Odor after Cleansing No -Bioengineered Tissue No -Bleeding Controlled with Pressure -Treatment Response Procedure Tolerated Well #7 RT LAT LE -Time 11:58 -Correct Patient Yes -Correct Side, Site, Position Yes -Correct Procedure Yes -Post Debridement Size (cm) - Length 0 -Post Debridement Size (cm) - Width 0 -Post Debridement Size (cm) - Depth 0 -Total Square Cm 0 -Wound/Ulcer Outcome Healed- Epithelialized [See Physician Procedure note for Specifics] Pain Scale: 0-10 Numeric [Pain] -Is Patient Pain Free? Yes Musculoskeletal: No Muscle Wasting Neurological: Cranial nerves II-XII grossly intact Psych/Mental Status: Normal Affect Debridement Note Post-Debridement Measurements/Treatment WC - Nurse 2 - General Ulcer CM Notes Start: 06/26/18 11:24 Freq: Status: Active Protocol: Activity Type Activity Date Activity User E-Sign Co-Sign Detail Recorded Client Recorded Date Recorded By Document 06/26/18 11:57 MW [id number] 06/26/18 12:01 MW 06/26/18 11:57 Wound Center Nurse 2 9. L plantar foot -Time 11:57 -Correct Patient Yes -Correct Side, Site, Position Yes -Correct Procedure Yes -Procedure Performed Yes -Type of Procedure Debridement -Clinical Debridement Subcutaneous -Post Debridement Size (cm) - Length 1.0 -Post Debridement Size (cm) - Width 2.1 -Post Debridement Size (cm) - Depth 0.2 -Total Square Cm 2.10 -Wound/Ulcer Outcome Not Healed -Ulcer Cleansing Rinsed/ Irrigated with Saline -Foul Odor after Cleansing No -Bioengineered Tissue No -Bleeding Controlled with Pressure -Treatment Response Procedure Tolerated Well #6 right medial le cluster -Time 11:57 -Correct Patient Yes -Correct Side, Site, Position Yes -Correct Procedure Yes -Procedure Performed Yes -Type of Procedure Debridement -Clinical Debridement Subcutaneous -Post Debridement Size (cm) - Length 0.8 -Post Debridement Size (cm) - Width 0.6 -Post Debridement Size (cm) - Depth 0.1 -Total Square Cm 0.48 -Wound/Ulcer Outcome Not Healed -Ulcer Cleansing Rinsed/ Irrigated with Saline -Foul Odor after Cleansing No -Bioengineered Tissue No -Bleeding Controlled with Pressure -Treatment Response Procedure Tolerated Well #5 LEFT MEDIAL. CALF -Time 11:57 -Correct Patient Yes -Correct Side, Site, Position Yes -Correct Procedure Yes -Procedure Performed Yes -Type of Procedure Debridement -Clinical Debridement Subcutaneous -Post Debridement Size (cm) - Length 2.2 -Post Debridement Size (cm) - Width 1.6 -Post Debridement Size (cm) - Depth 0.1 -Total Square Cm 3.52 -Wound/Ulcer Outcome Not Healed -Ulcer Cleansing Rinsed/ Irrigated with Saline -Foul Odor after Cleansing No -Bioengineered Tissue No -Bleeding Controlled with Pressure -Treatment Response Procedure Tolerated Well #7 RT LAT LE -Time 11:58 -Correct Patient Yes -Correct Side, Site, Position Yes -Correct Procedure Yes -Post Debridement Size (cm) - Length 0 -Post Debridement Size (cm) - Width 0 -Post Debridement Size (cm) - Depth 0 -Total Square Cm 0 -Wound/Ulcer Outcome Healed- Epithelialized Pain Scale: 0-10 Numeric Is Patient Pain Free? Yes Wound debrided: Left lower extremity Wound Grade/Stage: Stage II Type of Debridement: Excisional debridement Anesthesia Used: 4% Lidocaine Solution Depth: Down to and including healthy tissue, in the subcutaneous layer Percentage of wound debrided: 100 Instrument Used: 7mm curette Tissue Removed: Slough and devitalized tissue Severity: Fat Layer Exposed Amount of bleeding with debridement: Mild Bleeding Controlled with: Pressure Patient tolerated procedure well - Additional Wound Wound debrided: Right lower extremity Wound Grade/Stage: Stage II Type of Debridement: Excisional debridement Anesthesia Used: 4% Lidocaine Solution Depth: Down to and including healthy tissue, in the subcutaneous layer Percentage of wound debrided: 100 Instrument Used: 7mm curette Tissue Removed: Slough and devitalized tissue Severity: Fat Layer Exposed Amount of bleeding with debridement: Mild Bleeding Controlled with: Pressure Patient tolerated procedure: Patient tolerated procedure well - Additional Wound Wound debrided: Left foot Wound Grade/Stage: Stage III Type of Debridement: Excisional debridement Anesthesia Used: 4% Lidocaine Solution Depth: Down to and including healthy tissue, in the subcutaneous layer Percentage of wound debrided: 100 Instrument Used: 7mm curette Tissue Removed: Slough and devitalized tissue Severity: Fat Layer Exposed Amount of bleeding with debridement: Mild Bleeding Controlled with: Pressure Patient tolerated procedure: Patient tolerated procedure well Assessment/Plan Active Problems (Last Updated 04/24/18 @ 09:54 by Didi Perez) Pressure ulcer of left foot, stage 3 (Acute) Ulcer of left lower extremity with fat layer exposed (Chronic) Ulcer of right lower extremity with fat layer exposed (Chronic) Assessment: Left lower extremity ulcer most likely secondary to venous insufficiency. Diabetes mellitus type 2, poorly controlled. Bilateral lower extremity venous insufficiency. Plan: Debridement done as documenetd above, procedure was well tolerated. Continue Pomogran to all ulcers with adaptic over top. Leave in place for a week. OptiForm to the left foot. Elevate lower extremity when seated and in bed. 3M wraps for edema management. Compliance with diuretics and elevation of her lower extremities strongly recommended. Continue Follow-up with PCP for optimal blood sugar management. Follow up in 1 week. Advised to call with any questions or concerns. This note was generated with [email or web address] software. It may contain incorrect words, spelling, and punctuation that were not noted in checking the note before signing.
[2018-07-03 12:32] VITALS: RESP 16; TEMP 36.2
--- NOTE | 2018-07-03 13:29 | PCM.WC.PN ---
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 Bilateral lower extremity swelling. History of Wound: Ms. Jovel 20-year-old who presents to the wound center due to nonhealing left lower extremity wounds/ulcers. Exact etiology is unknown however patient believes it started in early December. She has had no significant wound care but has covered the wound surfaces with Band-Aids. She has noted increased drainage from the wound of clear substance. She was recently seen by primary care physician and started on Augmentin. She has had no cultures done. She feels well otherwise and denies chills, fever, nausea, vomiting or any change in her bowel habit. She is not very compliant with her diabetic care. She is being seen for Dr. De Santiago in her absence for follow up treatment today. She has been tolerating 3M dressings and promogran. Is tolerating Clindamycin as well. Has a few doses left. Has missed some doses. Denies increased drainage, pain or fever or chills. Progress of Wound: Ms. Jovel had been discharged last week however, she failed to use her compression as direected and now returns with significant bilateral lower extremity selling with mutiole ulcers on both extremities. She deneis any significiant lower extremity pain or feeling of unwell. She also denies chills or fever. 05/15/18: Wound is improving. No new complaints at this time. 05/23/2018: Returns with worsening ulcers and bilateral lower swelling. She states that she has not taken her water pills in 2 days. 05/29/18: Still signiifcant bilateral lower extremity swelling. 3M's not properly treated on her lower extremity. Also still has a lot of fleas all over her. 06/05/18: No new complaints at this time. Ulcers are stable. 06/12/18: Stable ulcers. No new complaints. 06/19/18: Still signiifcant lower extremity swelling. Otherwise, no complaints. 06/26/2018: She presents with a new left foot wound which initially started out as a blister. Has a deformity around that area. She still has significant lower extremity swelling. She states that she slept slept sitting in her chair. 07/03/2018: Samantha presents again today looking very unkempt With her 3M wraps soaked in what might be Cat urine. She also has a new right great toe ulcer. - Physical Exam Vital Signs Temp Pulse Resp BP 97.1 F L 62 16 165/75 H 07/03/18 12:32 06/26/18 11:24 07/03/18 12:32 06/26/18 11:24 General: Alert, Cooperative, No apparent distress HEENT: Atraumatic, Normocephalic Oral: Moist Mucosa Neck: Supple Lungs: Normal air movement Extremities: No cyanosis, Edema Skin: Ulcer/ Wound Wound Measurements and Assessment WC - Nurse 1 - General Ulcer Measurement Start: 06/26/18 11:24 Freq: Status: Active Protocol: Activity Type Activity Date Activity User E-Sign Co-Sign Detail Recorded Client Recorded Date Recorded By Document 07/03/18 12:32 [facility] [id number] 07/03/18 12:49 [facility] 07/03/18 12:32 Wound Center Nurse 1 [Ulcer Assessment] #10 R Med Met Head -Current Size (cm) - Length 0.3 -Current Size (cm) - Width 0.6 -Current Size (cm) - Depth 0.1 -Total Square Cm 0.18 -Photo Taken Yes -Classification - Thickness Full Thickness without Exposed Support Structure -Exudate Amt Small (1-33%) -Exudate Type Serosanguineous -Wound Margin Flat & Intact -Granulation Amt Large (67-100%) -Granulation Quality [place] -Necrosis Amt None Present (0 %) -Structure Exposed N/A -Texture (Jessie-wound Skin Appearance) Localized Edema -Moisture (Jessie-wound Skin Appearance No Abnormality ) -Color (Jessie-wound Skin Appearance) Erythema -Temperature (Jessie-wound Skin No Abnormality Appearance) (Pt Warm) -Tenderness on Palpation (Jessie-wound No Skin Appearance) -Ulcer Cleansing Wound Cleanser -Foul Odor after Cleansing No -Anesthetic Used 4% Lidocaine Solution 9. L plantar foot -Current Size (cm) - Length 1.4 -Current Size (cm) - Width 0.8 -Current Size (cm) - Depth 0.2 -Total Square Cm 1.12 -Photo Taken Yes -Exudate Amt Medium (34-66%) -Exudate Type Serosanguineous -Wound Margin Thickened -Granulation Amt None Present (0 %) -Necrosis Amt Large (67-100%) -Necrotic Tissue Type Adherent Slough -Structure Exposed N/A -Texture (Jessie-wound Skin Appearance) Localized Edema Scarring -Moisture (Jessie-wound Skin Appearance Maceration ) -Color (Jessie-wound Skin Appearance) Erythema Rubor -Temperature (Jessie-wound Skin No Abnormality Appearance) (Pt Warm) -Tenderness on Palpation (Jessie-wound No Skin Appearance) -Ulcer Cleansing Wound Cleanser -Foul Odor after Cleansing No -Anesthetic Used 4% Lidocaine Solution #6 right medial le cluster -Current Size (cm) - Length 2.3 -Current Size (cm) - Width 1.3 -Current Size (cm) - Depth 0.1 -Total Square Cm 2.99 -Photo Taken Yes -Exudate Amt Small (1-33%) -Exudate Type Serosanguineous -Wound Margin Distinct, Outline Attached -Granulation Amt Small (1-33%) -Granulation Quality [place] -Necrosis Amt Small (1-33%) -Necrotic Tissue Type Adherent Slough -Structure Exposed N/A -Texture (Jessie-wound Skin Appearance) Scarring -Moisture (Jessie-wound Skin Appearance Maceration ) -Color (Jessie-wound Skin Appearance) Hemosiderin Staining -Temperature (Jessie-wound Skin No Abnormality Appearance) (Pt Warm) -Tenderness on Palpation (Jessie-wound No Skin Appearance) -Ulcer Cleansing Wound Cleanser -Foul Odor after Cleansing No -Anesthetic Used 4% Lidocaine Solution #5 LEFT MEDIAL. CALF -Current Size (cm) - Length 0.8 -Current Size (cm) - Width 0.7 -Current Size (cm) - Depth 0.3 -Total Square Cm 0.56 -Photo Taken Yes -Exudate Amt Small (1-33%) -Exudate Type Serosanguineous -Wound Margin Distinct, Outline Attached -Granulation Amt None Present (0 %) -Necrosis Amt Large (67-100%) -Necrotic Tissue Type Adherent Slough -Structure Exposed N/A -Texture (Jessie-wound Skin Appearance) Scarring -Moisture (Jessie-wound Skin Appearance No Abnormality ) -Color (Jessie-wound Skin Appearance) Erythema Hemosiderin Staining -Temperature (Jessie-wound Skin No Abnormality Appearance) (Pt Warm) -Ulcer Cleansing Wound Cleanser -Foul Odor after Cleansing No -Anesthetic Used 4% Lidocaine Solution [Edema Assessment] -Right Calf (cm) 34.6 -Right Ankle (cm) 24.4 -Left Calf (cm) 36.1 -Left Ankle (cm) 23.6 WC - Nurse 2 - General Ulcer CM Notes Start: 06/26/18 11:24 Freq: Status: Active Protocol: Activity Type Activity Date Activity User E-Sign Co-Sign Detail Recorded Client Recorded Date Recorded By Document 07/03/18 13:05 [id number] 07/03/18 13:09 CS 07/03/18 13:05 Wound Center Nurse 2 [Procedure/Treatment] #10 R Med Met Head -Time 13:05 -Correct Patient Yes -Correct Side, Site, Position Yes -Correct Procedure Yes -Procedure Performed Yes -Type of Procedure Debridement -Clinical Debridement Subcutaneous -Post Debridement Size (cm) - Length 0.3 -Post Debridement Size (cm) - Width 0.4 -Post Debridement Size (cm) - Depth 0.1 -Total Square Cm 0.12 -Wound/Ulcer Outcome Not Healed -Ulcer Cleansing Rinsed/ Irrigated with Saline -Foul Odor after Cleansing No -Bioengineered Tissue No -Bleeding Controlled with Pressure -Treatment Response Procedure Tolerated Well 9. L plantar foot -Time 13:05 -Correct Patient Yes -Correct Side, Site, Position Yes -Correct Procedure Yes -Procedure Performed Yes -Type of Procedure Debridement -Clinical Debridement Subcutaneous -Post Debridement Size (cm) - Length 1.3 -Post Debridement Size (cm) - Width 3 -Post Debridement Size (cm) - Depth 0.1 -Total Square Cm 3.9 -Wound/Ulcer Outcome Not Healed -Ulcer Cleansing Rinsed/ Irrigated with Saline -Foul Odor after Cleansing No -Bioengineered Tissue No -Bleeding Controlled with Pressure -Treatment Response Procedure Tolerated Well #6 right medial le cluster -Time 13:05 -Correct Patient Yes -Correct Side, Site, Position Yes -Correct Procedure Yes -Procedure Performed Yes -Type of Procedure Debridement -Clinical Debridement Subcutaneous -Post Debridement Size (cm) - Length 0.9 -Post Debridement Size (cm) - Width 0.8 -Post Debridement Size (cm) - Depth 0.2 -Total Square Cm 0.72 -Wound/Ulcer Outcome Not Healed -Ulcer Cleansing Rinsed/ Irrigated with Saline -Foul Odor after Cleansing No -Bioengineered Tissue No -Bleeding Controlled with Pressure -Treatment Response Procedure Tolerated Well #5 LEFT MEDIAL. CALF -Time 13:06 -Correct Patient Yes -Correct Side, Site, Position Yes -Correct Procedure Yes -Procedure Performed Yes -Type of Procedure Debridement -Clinical Debridement Subcutaneous -Post Debridement Size (cm) - Length 2.1 -Post Debridement Size (cm) - Width 1.4 -Post Debridement Size (cm) - Depth 0.1 -Total Square Cm 2.94 -Wound/Ulcer Outcome Not Healed -Bleeding Controlled with Pressure -Treatment Response Procedure Tolerated Well [See Physician Procedure note for Specifics] Pain Scale: 0-10 Numeric [Pain] -Is Patient Pain Free? Yes Musculoskeletal: No Muscle Wasting Neurological: Cranial nerves II-XII grossly intact Psych/Mental Status: Normal Affect Debridement Note Post-Debridement Measurements/Treatment WC - Nurse 2 - General Ulcer CM Notes Start: 06/26/18 11:24 Freq: Status: Active Protocol: Activity Type Activity Date Activity User E-Sign Co-Sign Detail Recorded Client Recorded Date Recorded By Document 06/26/18 11:57 MW [id number] 06/26/18 12:01 MW Document 07/03/18 13:05 CS [id number] 07/03/18 13:09 CS 06/26/18 07/03/18 11:57 13:05 Wound Center Nurse 2 #10 R Med Met Head -Time 13:05 -Correct Patient Yes -Correct Side, Site, Position Yes -Correct Procedure Yes -Procedure Performed Yes -Type of Procedure Debridement -Clinical Debridement Subcutaneous -Post Debridement Size (cm) - Length 0.3 -Post Debridement Size (cm) - Width 0.4 -Post Debridement Size (cm) - Depth 0.1 -Total Square Cm 0.12 -Wound/Ulcer Outcome Not Healed -Ulcer Cleansing Rinsed/ Irrigated with Saline -Foul Odor after Cleansing No -Bioengineered Tissue No -Bleeding Controlled with Pressure -Treatment Response Procedure Tolerated Well 9. L plantar foot -Time 11:57 13:05 -Correct Patient Yes Yes -Correct Side, Site, Position Yes Yes -Correct Procedure Yes Yes -Procedure Performed Yes Yes -Type of Procedure Debridement Debridement -Clinical Debridement Subcutaneous Subcutaneous -Post Debridement Size (cm) - Length 1.0 1.3 -Post Debridement Size (cm) - Width 2.1 3 -Post Debridement Size (cm) - Depth 0.2 0.1 -Total Square Cm 2.10 3.9 -Wound/Ulcer Outcome Not Healed Not Healed -Ulcer Cleansing Rinsed/ Rinsed/ Irrigated with Irrigated with Saline Saline -Foul Odor after Cleansing No No -Bioengineered Tissue No No -Bleeding Controlled with Pressure Pressure -Treatment Response Procedure Procedure Tolerated Well Tolerated Well #6 right medial le cluster -Time 11:57 13:05 -Correct Patient Yes Yes -Correct Side, Site, Position Yes Yes -Correct Procedure Yes Yes -Procedure Performed Yes Yes -Type of Procedure Debridement Debridement -Clinical Debridement Subcutaneous Subcutaneous -Post Debridement Size (cm) - Length 0.8 0.9 -Post Debridement Size (cm) - Width 0.6 0.8 -Post Debridement Size (cm) - Depth 0.1 0.2 -Total Square Cm 0.48 0.72 -Wound/Ulcer Outcome Not Healed Not Healed -Ulcer Cleansing Rinsed/ Rinsed/ Irrigated with Irrigated with Saline Saline -Foul Odor after Cleansing No No -Bioengineered Tissue No No -Bleeding Controlled with Pressure Pressure -Treatment Response Procedure Procedure Tolerated Well Tolerated Well #5 LEFT MEDIAL. CALF -Time 11:57 13:06 -Correct Patient Yes Yes -Correct Side, Site, Position Yes Yes -Correct Procedure Yes Yes -Procedure Performed Yes Yes -Type of Procedure Debridement Debridement -Clinical Debridement Subcutaneous Subcutaneous -Post Debridement Size (cm) - Length 2.2 2.1 -Post Debridement Size (cm) - Width 1.6 1.4 -Post Debridement Size (cm) - Depth 0.1 0.1 -Total Square Cm 3.52 2.94 -Wound/Ulcer Outcome Not Healed Not Healed -Ulcer Cleansing Rinsed/ Irrigated with Saline -Foul Odor after Cleansing No -Bioengineered Tissue No -Bleeding Controlled with Pressure Pressure -Treatment Response Procedure Procedure Tolerated Well Tolerated Well #7 RT LAT LE -Time 11:58 -Correct Patient Yes -Correct Side, Site, Position Yes -Correct Procedure Yes -Post Debridement Size (cm) - Length 0 -Post Debridement Size (cm) - Width 0 -Post Debridement Size (cm) - Depth 0 -Total Square Cm 0 -Wound/Ulcer Outcome Healed- Epithelialized Pain Scale: 0-10 Numeric Is Patient Pain Free? Yes Yes Wound debrided: Left lower extremity medial Wound Grade/Stage: Stage II Type of Debridement: Excisional debridement Anesthesia Used: 4% Lidocaine Solution Depth: Down to and including healthy tissue, in the subcutaneous layer Percentage of wound debrided: 100 Instrument Used: 3mm curette Tissue Removed: Slough and devitalized tissue Severity: Fat Layer Exposed Amount of bleeding with debridement: Mild Bleeding Controlled with: Pressure Patient tolerated procedure well - Additional Wound Wound debrided: Left foot Wound Grade/Stage: Stage II Type of Debridement: Excisional debridement Anesthesia Used: 4% Lidocaine Solution Depth: Down to and including healthy tissue, in the subcutaneous layer Percentage of wound debrided: 100 Instrument Used: 3mm curette, Forceps, - - Scissors Tissue Removed: Slough and devitalized tissue Severity: Fat Layer Exposed Amount of bleeding with debridement: Mild Bleeding Controlled with: Pressure Patient tolerated procedure: Patient tolerated procedure well - Additional Wound Wound debrided: Right lower extremity medial Wound Grade/Stage: Stage II Type of Debridement: Excisional debridement Anesthesia Used: 4% Lidocaine Solution Depth: Down to and including healthy tissue, in the subcutaneous layer Percentage of wound debrided: 100 Instrument Used: 3mm curette Tissue Removed: Slough and devitalized tissue Severity: Fat Layer Exposed Amount of bleeding with debridement: Mild Bleeding Controlled with: Pressure Patient tolerated procedure: Patient tolerated procedure well - Additional Wound Wound debrided: Right great toe medial Wound Grade/Stage: Stage II Type of Debridement: Excisional debridement Anesthesia Used: 4% Lidocaine Solution Depth: Down to and including healthy tissue, in the subcutaneous layer Percentage of wound debrided: 100 Instrument Used: 3mm curette Tissue Removed: Slough and devitalized tissue Severity: Fat Layer Exposed Amount of bleeding with debridement: Mild Bleeding Controlled with: Pressure Patient tolerated procedure: Patient tolerated procedure well Assessment/Plan Active Problems (Last Updated 04/24/18 @ 09:54 by Didi Perez) Pressure ulcer of left foot, stage 3 (Acute) Ulcer of left lower extremity with fat layer exposed (Chronic) Ulcer of right lower extremity with fat layer exposed (Chronic) Assessment: Left lower extremity ulcer most likely secondary to venous insufficiency. Diabetes mellitus type 2, poorly controlled. Bilateral lower extremity venous insufficiency. Plan: Debridement done as documenetd above, procedure was well tolerated. Continue Pomogran to all ulcers with adaptic over top. Leave in place for a week. OptiForm to the left foot and right great toe. Elevate lower extremity when seated and in bed. 3M wraps for edema management. Compliance with diuretics and elevation of her lower extremities strongly recommended. Continue Follow-up with PCP for optimal blood sugar management. It becoming more apparent that Samantha is not able to care for herself. She has been seen by social sciences department chair and per social sciences department chair adult protective service was to visit her home however, she states that she has not had anyone, around. She has vehemently refused usp. Might be expedient for her to be in a usp or at best an assisted living. Follow up in 1 week. Advised to call with any questions or concerns. This note was generated with [employer] dictation software. It may contain incorrect words, spelling, and punctuation that were not noted in checking the note before signing.
--- NOTE | 2018-07-03 13:33 | PN.PCM_ITS ---
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 Bilateral lower extremity swelling. History of Wound: Ms. Jovel 20-year-old who presents to the wound center due to nonhealing left lower extremity wounds/ulcers. Exact etiology is unknown however patient believes it started in early December. She has had no significant wound care but has covered the wound surfaces with Band-Aids. She has noted increased drainage from the wound of clear substance. She was recently seen by primary care physician and started on Augmentin. She has had no cultures done. She feels well otherwise and denies chills, fever, nausea, vomiting or any change in her bowel habit. She is not very compliant with her diabetic care. She is being seen for Dr. De Santiago in her absence for follow up treatment today. She has been tolerating 3M dressings and promogran. Is tolerating Clindamycin as well. Has a few doses left. Has missed some doses. Denies increased drainage, pain or fever or chills. Progress of Wound: Ms. Jovel had been discharged last week however, she failed to use her compression as direected and now returns with significant bilateral lower extremity selling with mutiole ulcers on both extremities. She deneis any significiant lower extremity pain or feeling of unwell. She also denies chills or fever. 05/15/18: Wound is improving. No new complaints at this time. 05/23/2018: Returns with worsening ulcers and bilateral lower swelling. She states that she has not taken her water pills in 2 days. 05/29/18: Still signiifcant bilateral lower extremity swelling. 3M's not properly treated on her lower extremity. Also still has a lot of fleas all over her. 06/05/18: No new complaints at this time. Ulcers are stable. 06/12/18: Stable ulcers. No new complaints. 06/19/18: Still signiifcant lower extremity swelling. Otherwise, no complaints. 06/26/2018: She presents with a new left foot wound which initially started out as a blister. Has a deformity around that area. She still has significant lower extremity swelling. She states that she slept slept sitting in her chair. 07/03/2018: Samantha presents again today looking very unkempt With her 3M wraps soaked in what might be Cat urine. She also has a new right great toe ulcer. - Physical Exam Vital Signs Temp Pulse Resp BP 97.1 F L 62 16 165/75 H 07/03/18 12:32 06/26/18 11:24 07/03/18 12:32 06/26/18 11:24 General: Alert, Cooperative, No apparent distress HEENT: Atraumatic, Normocephalic Oral: Moist Mucosa Neck: Supple Lungs: Normal air movement Extremities: No cyanosis, Edema Skin: Ulcer/ Wound Wound Measurements and Assessment WC - Nurse 1 - General Ulcer Measurement Start: 06/26/18 11:24 Freq: Status: Active Protocol: Activity Type Activity Date Activity User E-Sign Co-Sign Detail Recorded Client Recorded Date Recorded By Document 07/03/18 12:32 [facility] [id number] 07/03/18 12:49 [facility] 07/03/18 12:32 Wound Center Nurse 1 [Ulcer Assessment] #10 R Med Met Head -Current Size (cm) - Length 0.3 -Current Size (cm) - Width 0.6 -Current Size (cm) - Depth 0.1 -Total Square Cm 0.18 -Photo Taken Yes -Classification - Thickness Full Thickness without Exposed Support Structure -Exudate Amt Small (1-33%) -Exudate Type Serosanguineous -Wound Margin Flat & Intact -Granulation Amt Large (67-100%) -Granulation Quality Spearman -Necrosis Amt None Present (0 %) -Structure Exposed N/A -Texture (Jessie-wound Skin Appearance) Localized Edema -Moisture (Jessie-wound Skin Appearance No Abnormality ) -Color (Jessie-wound Skin Appearance) Erythema -Temperature (Jessie-wound Skin No Abnormality Appearance) (Pt Warm) -Tenderness on Palpation (Jessie-wound No Skin Appearance) -Ulcer Cleansing Wound Cleanser -Foul Odor after Cleansing No -Anesthetic Used 4% Lidocaine Solution 9. L plantar foot -Current Size (cm) - Length 1.4 -Current Size (cm) - Width 0.8 -Current Size (cm) - Depth 0.2 -Total Square Cm 1.12 -Photo Taken Yes -Exudate Amt Medium (34-66%) -Exudate Type Serosanguineous -Wound Margin Thickened -Granulation Amt None Present (0 %) -Necrosis Amt Large (67-100%) -Necrotic Tissue Type Adherent Slough -Structure Exposed N/A -Texture (Jessie-wound Skin Appearance) Localized Edema Scarring -Moisture (Jessie-wound Skin Appearance Maceration ) -Color (Jessie-wound Skin Appearance) Erythema Rubor -Temperature (Jessie-wound Skin No Abnormality Appearance) (Pt Warm) -Tenderness on Palpation (Jessie-wound No Skin Appearance) -Ulcer Cleansing Wound Cleanser -Foul Odor after Cleansing No -Anesthetic Used 4% Lidocaine Solution #6 right medial le cluster -Current Size (cm) - Length 2.3 -Current Size (cm) - Width 1.3 -Current Size (cm) - Depth 0.1 -Total Square Cm 2.99 -Photo Taken Yes -Exudate Amt Small (1-33%) -Exudate Type Serosanguineous -Wound Margin Distinct, Outline Attached -Granulation Amt Small (1-33%) -Granulation Quality Spearman -Necrosis Amt Small (1-33%) -Necrotic Tissue Type Adherent Slough -Structure Exposed N/A -Texture (Jessie-wound Skin Appearance) Scarring -Moisture (Jessie-wound Skin Appearance Maceration ) -Color (Jessie-wound Skin Appearance) Hemosiderin Staining -Temperature (Jessie-wound Skin No Abnormality Appearance) (Pt Warm) -Tenderness on Palpation (Jessie-wound No Skin Appearance) -Ulcer Cleansing Wound Cleanser -Foul Odor after Cleansing No -Anesthetic Used 4% Lidocaine Solution #5 LEFT MEDIAL. CALF -Current Size (cm) - Length 0.8 -Current Size (cm) - Width 0.7 -Current Size (cm) - Depth 0.3 -Total Square Cm 0.56 -Photo Taken Yes -Exudate Amt Small (1-33%) -Exudate Type Serosanguineous -Wound Margin Distinct, Outline Attached -Granulation Amt None Present (0 %) -Necrosis Amt Large (67-100%) -Necrotic Tissue Type Adherent Slough -Structure Exposed N/A -Texture (Jessie-wound Skin Appearance) Scarring -Moisture (Jessie-wound Skin Appearance No Abnormality ) -Color (Jessie-wound Skin Appearance) Erythema Hemosiderin Staining -Temperature (Jessie-wound Skin No Abnormality Appearance) (Pt Warm) -Ulcer Cleansing Wound Cleanser -Foul Odor after Cleansing No -Anesthetic Used 4% Lidocaine Solution [Edema Assessment] -Right Calf (cm) 34.6 -Right Ankle (cm) 24.4 -Left Calf (cm) 36.1 -Left Ankle (cm) 23.6 WC - Nurse 2 - General Ulcer CM Notes Start: 06/26/18 11:24 Freq: Status: Active Protocol: Activity Type Activity Date Activity User E-Sign Co-Sign Detail Recorded Client Recorded Date Recorded By Document 07/03/18 13:05 [id number] 07/03/18 13:09 CS 07/03/18 13:05 Wound Center Nurse 2 [Procedure/Treatment] #10 R Med Met Head -Time 13:05 -Correct Patient Yes -Correct Side, Site, Position Yes -Correct Procedure Yes -Procedure Performed Yes -Type of Procedure Debridement -Clinical Debridement Subcutaneous -Post Debridement Size (cm) - Length 0.3 -Post Debridement Size (cm) - Width 0.4 -Post Debridement Size (cm) - Depth 0.1 -Total Square Cm 0.12 -Wound/Ulcer Outcome Not Healed -Ulcer Cleansing Rinsed/ Irrigated with Saline -Foul Odor after Cleansing No -Bioengineered Tissue No -Bleeding Controlled with Pressure -Treatment Response Procedure Tolerated Well 9. L plantar foot -Time 13:05 -Correct Patient Yes -Correct Side, Site, Position Yes -Correct Procedure Yes -Procedure Performed Yes -Type of Procedure Debridement -Clinical Debridement Subcutaneous -Post Debridement Size (cm) - Length 1.3 -Post Debridement Size (cm) - Width 3 -Post Debridement Size (cm) - Depth 0.1 -Total Square Cm 3.9 -Wound/Ulcer Outcome Not Healed -Ulcer Cleansing Rinsed/ Irrigated with Saline -Foul Odor after Cleansing No -Bioengineered Tissue No -Bleeding Controlled with Pressure -Treatment Response Procedure Tolerated Well #6 right medial le cluster -Time 13:05 -Correct Patient Yes -Correct Side, Site, Position Yes -Correct Procedure Yes -Procedure Performed Yes -Type of Procedure Debridement -Clinical Debridement Subcutaneous -Post Debridement Size (cm) - Length 0.9 -Post Debridement Size (cm) - Width 0.8 -Post Debridement Size (cm) - Depth 0.2 -Total Square Cm 0.72 -Wound/Ulcer Outcome Not Healed -Ulcer Cleansing Rinsed/ Irrigated with Saline -Foul Odor after Cleansing No -Bioengineered Tissue No -Bleeding Controlled with Pressure -Treatment Response Procedure Tolerated Well #5 LEFT MEDIAL. CALF -Time 13:06 -Correct Patient Yes -Correct Side, Site, Position Yes -Correct Procedure Yes -Procedure Performed Yes -Type of Procedure Debridement -Clinical Debridement Subcutaneous -Post Debridement Size (cm) - Length 2.1 -Post Debridement Size (cm) - Width 1.4 -Post Debridement Size (cm) - Depth 0.1 -Total Square Cm 2.94 -Wound/Ulcer Outcome Not Healed -Bleeding Controlled with Pressure -Treatment Response Procedure Tolerated Well [See Physician Procedure note for Specifics] Pain Scale: 0-10 Numeric [Pain] -Is Patient Pain Free? Yes Musculoskeletal: No Muscle Wasting Neurological: Cranial nerves II-XII grossly intact Psych/Mental Status: Normal Affect Debridement Note Post-Debridement Measurements/Treatment WC - Nurse 2 - General Ulcer CM Notes Start: 06/26/18 11:24 Freq: Status: Active Protocol: Activity Type Activity Date Activity User E-Sign Co-Sign Detail Recorded Client Recorded Date Recorded By Document 06/26/18 11:57 MW [id number] 06/26/18 12:01 MW Document 07/03/18 13:05 CS [id number] 07/03/18 13:09 CS 06/26/18 07/03/18 11:57 13:05 Wound Center Nurse 2 #10 R Med Met Head -Time 13:05 -Correct Patient Yes -Correct Side, Site, Position Yes -Correct Procedure Yes -Procedure Performed Yes -Type of Procedure Debridement -Clinical Debridement Subcutaneous -Post Debridement Size (cm) - Length 0.3 -Post Debridement Size (cm) - Width 0.4 -Post Debridement Size (cm) - Depth 0.1 -Total Square Cm 0.12 -Wound/Ulcer Outcome Not Healed -Ulcer Cleansing Rinsed/ Irrigated with Saline -Foul Odor after Cleansing No -Bioengineered Tissue No -Bleeding Controlled with Pressure -Treatment Response Procedure Tolerated Well 9. L plantar foot -Time 11:57 13:05 -Correct Patient Yes Yes -Correct Side, Site, Position Yes Yes -Correct Procedure Yes Yes -Procedure Performed Yes Yes -Type of Procedure Debridement Debridement -Clinical Debridement Subcutaneous Subcutaneous -Post Debridement Size (cm) - Length 1.0 1.3 -Post Debridement Size (cm) - Width 2.1 3 -Post Debridement Size (cm) - Depth 0.2 0.1 -Total Square Cm 2.10 3.9 -Wound/Ulcer Outcome Not Healed Not Healed -Ulcer Cleansing Rinsed/ Rinsed/ Irrigated with Irrigated with Saline Saline -Foul Odor after Cleansing No No -Bioengineered Tissue No No -Bleeding Controlled with Pressure Pressure -Treatment Response Procedure Procedure Tolerated Well Tolerated Well #6 right medial le cluster -Time 11:57 13:05 -Correct Patient Yes Yes -Correct Side, Site, Position Yes Yes -Correct Procedure Yes Yes -Procedure Performed Yes Yes -Type of Procedure Debridement Debridement -Clinical Debridement Subcutaneous Subcutaneous -Post Debridement Size (cm) - Length 0.8 0.9 -Post Debridement Size (cm) - Width 0.6 0.8 -Post Debridement Size (cm) - Depth 0.1 0.2 -Total Square Cm 0.48 0.72 -Wound/Ulcer Outcome Not Healed Not Healed -Ulcer Cleansing Rinsed/ Rinsed/ Irrigated with Irrigated with Saline Saline -Foul Odor after Cleansing No No -Bioengineered Tissue No No -Bleeding Controlled with Pressure Pressure -Treatment Response Procedure Procedure Tolerated Well Tolerated Well #5 LEFT MEDIAL. CALF -Time 11:57 13:06 -Correct Patient Yes Yes -Correct Side, Site, Position Yes Yes -Correct Procedure Yes Yes -Procedure Performed Yes Yes -Type of Procedure Debridement Debridement -Clinical Debridement Subcutaneous Subcutaneous -Post Debridement Size (cm) - Length 2.2 2.1 -Post Debridement Size (cm) - Width 1.6 1.4 -Post Debridement Size (cm) - Depth 0.1 0.1 -Total Square Cm 3.52 2.94 -Wound/Ulcer Outcome Not Healed Not Healed -Ulcer Cleansing Rinsed/ Irrigated with Saline -Foul Odor after Cleansing No -Bioengineered Tissue No -Bleeding Controlled with Pressure Pressure -Treatment Response Procedure Procedure Tolerated Well Tolerated Well #7 RT LAT LE -Time 11:58 -Correct Patient Yes -Correct Side, Site, Position Yes -Correct Procedure Yes -Post Debridement Size (cm) - Length 0 -Post Debridement Size (cm) - Width 0 -Post Debridement Size (cm) - Depth 0 -Total Square Cm 0 -Wound/Ulcer Outcome Healed- Epithelialized Pain Scale: 0-10 Numeric Is Patient Pain Free? Yes Yes Wound debrided: Left lower extremity medial Wound Grade/Stage: Stage II Type of Debridement: Excisional debridement Anesthesia Used: 4% Lidocaine Solution Depth: Down to and including healthy tissue, in the subcutaneous layer Percentage of wound debrided: 100 Instrument Used: 3mm curette Tissue Removed: Slough and devitalized tissue Severity: Fat Layer Exposed Amount of bleeding with debridement: Mild Bleeding Controlled with: Pressure Patient tolerated procedure well - Additional Wound Wound debrided: Left foot Wound Grade/Stage: Stage II Type of Debridement: Excisional debridement Anesthesia Used: 4% Lidocaine Solution Depth: Down to and including healthy tissue, in the subcutaneous layer Percentage of wound debrided: 100 Instrument Used: 3mm curette, Forceps, - - Scissors Tissue Removed: Slough and devitalized tissue Severity: Fat Layer Exposed Amount of bleeding with debridement: Mild Bleeding Controlled with: Pressure Patient tolerated procedure: Patient tolerated procedure well - Additional Wound Wound debrided: Right lower extremity medial Wound Grade/Stage: Stage II Type of Debridement: Excisional debridement Anesthesia Used: 4% Lidocaine Solution Depth: Down to and including healthy tissue, in the subcutaneous layer Percentage of wound debrided: 100 Instrument Used: 3mm curette Tissue Removed: Slough and devitalized tissue Severity: Fat Layer Exposed Amount of bleeding with debridement: Mild Bleeding Controlled with: Pressure Patient tolerated procedure: Patient tolerated procedure well - Additional Wound Wound debrided: Right great toe medial Wound Grade/Stage: Stage II Type of Debridement: Excisional debridement Anesthesia Used: 4% Lidocaine Solution Depth: Down to and including healthy tissue, in the subcutaneous layer Percentage of wound debrided: 100 Instrument Used: 3mm curette Tissue Removed: Slough and devitalized tissue Severity: Fat Layer Exposed Amount of bleeding with debridement: Mild Bleeding Controlled with: Pressure Patient tolerated procedure: Patient tolerated procedure well Assessment/Plan Active Problems (Last Updated 04/24/18 @ 09:54 by Didi Perez) Pressure ulcer of left foot, stage 3 (Acute) Ulcer of left lower extremity with fat layer exposed (Chronic) Ulcer of right lower extremity with fat layer exposed (Chronic) Assessment: Left lower extremity ulcer most likely secondary to venous insufficiency. Diabetes mellitus type 2, poorly controlled. Bilateral lower extremity venous insufficiency. Plan: Debridement done as documenetd above, procedure was well tolerated. Continue Pomogran to all ulcers with adaptic over top. Leave in place for a week. OptiForm to the left foot and right great toe. Elevate lower extremity when seated and in bed. 3M wraps for edema management. Compliance with diuretics and elevation of her lower extremities strongly recommended. Continue Follow- up with PCP for optimal blood sugar management. It becoming more apparent that Samantha is not able to care for herself. She has been seen by social studies department chair and per social studies department chair adult protective service was to visit her home however, she states that she has not had anyone, around. She has vehemently refused halfway. Might be expedient for her to be in a halfway or at best an assisted living. Follow up in 1 week. Advised to call with any questions or concerns. This note was generated with [employer] dictation software. It may contain incorrect words, spelling, and punctuation that were not noted in checking the note before signing.
== END 2018-07-19 23:59 ==
LOC: WC 11:30
PROVIDERS: Family Provider Family Medicine; PCP Family Medicine; Referring Provider Internal Medicine; Visit Provider Internal Medicine
DX: E11.622 Type 2 diabetes mellitus with other skin ulcer (principal); L89.893 Pressure ulcer of other site, stage 3; L97.822 Non-pressure chronic ulcer of other part of left lower leg with fat layer exposed; L97.812 Non-pressure chronic ulcer of other part of right lower leg with fat layer exposed; M79.89 Other specified soft tissue disorders; E11.621 Type 2 diabetes mellitus with foot ulcer; E11.65 Type 2 diabetes mellitus with hyperglycemia; I87.2 Venous insufficiency (chronic) (peripheral)
CPT/HCPCS: 11042; 29581

== ENCOUNTER 2018-07-08 16:38 | Inpatient (IN) | payer MEDICARE, OTHER, SELFPAY ==
[2018-07-08 16:39] VITALS: BP 132/102; PULSE 99; RESP 18; TEMP 36.4; O2SAT 92; BMI 25.4
[2018-07-08] MEDS: 0.9% Normal Saline 1,000 ML 150 ML IV (17:26)
[2018-07-08 17:36] LABS: Anion Gap 10 (5-15); BUN 27 mg/dL (7-18); BUN/Creat Ratio 30.7 RATIO (10-20); Calcium,Total 8.6 mg/dL (8.5-10.1); Chloride 93 mmol/L (98-107); Creatinine, Serum 0.88 mg/dL (0.55-1.02); EST Glomerular Filtration Rate 66 mL/min (>60); Est Glom Filt Rate - Afr Amer 79 mL/min (>60); Estimated Creatinine Clearance 37.83 ml/min; Glucose 551 mg/dL (74-106); Potassium 4.2 mmol/L (3.5-5.1); Sodium Level 130 mmol/L (136-145)
--- NOTE | 2018-07-08 17:36 | ED.RN ---
glucose 551 called from the lab dr diallo aware
[2018-07-08 17:44] LABS: Mucous, Urine 0 SEEN /hpf (<or=2+); Squamous Epithelial Cells - UA 0 SEEN /hpf (5-10)
[2018-07-08 17:47] LABS: Color, Urine Yellow (Yellow); Glucose, Dipstick 1000 mg/dl (Normal); Ketone-Dipstick 15 mg/dl (Negative); Leukocyte Esterase-Dipstick 100 /ul (Negative); Nitrite-Dipstick Positive (Negative); Occult Blood-Urine 25 /ul (Negative); Protein-Dipstick 30 mg/dl (Negative); Specific Gravity, Urine 1.015 (1.002-1.030); Urine Bilirubin Dipstick Negative (Negative); Urine Clarity Cloudy (Clear); Urine Urobilinogen Normal (Normal)
--- NOTE | 2018-07-08 17:50 | RAD_ITS ---
STUDY: X-RAY - PELVIS AND LEFT HIP REASON FOR EXAM: Female, 83 years old. Fall TECHNIQUE: 63 views of the pelvis and hip. COMPARISON: None. FINDINGS: There is a non-specific bowel gas pattern. Normal visualized soft tissue structures. Degenerative lower lumbar changes. Diffuse vascular calcifications. Normal bilateral iliac wings, sacroiliac joints and visualized sacrum. Normal bilateral superior and inferior pubic rami. Normal pubic symphysis. Normal bilateral ischial tuberosities. Normal visualized femoral head. Normal acetabulum. Normal hip joint. RAD/HIP, UNI W/ Pelvis 2-3 Views IMPRESSION: No acute bony injury of the pelvis and hip. Electronically Signed: Lebron Lopez DO at 18:28 EST Tel [phone], Service support ,
[2018-07-08 17:56] LABS: Bacteria 4+ /hpf (None Seen); Red Blood Cells-Urine 0-5 SEEN /hpf (0-5); White Blood Cells 25-50 SEEN /hpf (0-5)
[2018-07-08 18:15] LABS: Differential Indicated SCAN CRITERIA MET; Hematocrit 40.6 % (37-47); Hemoglobin 13.1 g/dl (12.0-15.0); Mean Corp Hgb Conc 32.3 g/gl (32-36); Mean Corpuscular Hgb 28.1 pg (27.0-32.0); Mean Corpuscular Volume 86.9 fL (81-99); Mean Platelet Vol. 10.6 fl (6.2-12.0); POSITIVE COUNT NO; POSITIVE DIFFERENTIAL YES; POSITIVE MORPHOLOGY NO; Platelet Count 285 K/mm3 (150-450); RBC Distribution Width CV 14.7 % (11.6-14.6); RBC Distribution Width SD 46.5 fl (35.1-43.9); Red Blood Count 4.67 M/mm3 (4.2-5.4); White Blood Count 9.2 K/mm3 (4.4-11.0)
[2018-07-08 18:16] LABS: Basophil# 0.01 X10^3/uL; Basophil% 0.1 % (0-1); Lymphocyte # 0.46 X10^3/ul (4.0); Monocyte# 0.57 X10^3/uL; Monocyte% 6.2 % (0-10); Neutrophil # 8.06 X10^3/uL (2.7-7.7); Neutrophil % 88.2 % (47-70)
[2018-07-08 18:39] VITALS: BP 107/41; PULSE 75; RESP 14; O2SAT 96
[2018-07-08] MEDS: Ceftriaxone 1 GM/50 ML BAG IV (18:44)
[2018-07-08] MEDS: 0.9% Normal Saline 1,000 ML 999 ML IV (18:44)
[2018-07-08 19:30] LABS: Bedside Glucose 394 mg/dL (70-110)
[2018-07-08 20:00] VITALS: PULSE 76; RESP 12; O2SAT 96
--- NOTE | 2018-07-08 20:03 | ED.DCSUM_ITS ---
- ER Visit Summary Date of Service: 07/08/18 Chief Complaint: Fall History of Present Illness: The patient is a 83 F brought in by neighbor with frequent falls. She reportedly had 2 falls today. She states her legs just give out on her. She had left groin pain for the past 2 weeks and wanted this checked. Patient stopped taking her cholesterol medication naproxen a week and a half ago thinking that that was causing her muscle weakness. Patient does reportedly live alone. Her neighbors will come over and help her up when she falls. Physical Examination: Vital signs unremarkable. Patient sitting upright in bed no acute distress. Head and neck examination reveals no sign of trauma. Heart is regular rate and rhythm. Lung sounds are clear. Abdomen is soft and nontender. Hypoactive bowel sounds are noted. Lower external examination reveals dressings to be in place. When these are removed she does have a few small pressure ulcers that did not show sign of acute infection. Test Results: CBC is unremarkable. Chemistry studies reveal glucose of 551 with a sodium of 130. Corrected sodium would be 137. BUN is 27. Urinalysis shows positive nitrites with 25-50 white cells and 4+ bacteria. She does have 1000 glucose in her urine. Pelvis and left hip x-rays reveal no evidence of acute bony injury. Emergency Department Course and Treatment: Patient is given IV fluids. Urine culture was sent she was given a dose of IV Rocephin. After fluids repeat blood sugar is down to 394. Patient does admit to not taking her diabetes medication regularly. She also states her neighbor brought her a pack of cookies yesterday and she ate the entire package. Patient was offered home health assistance, but she states she does not want anybody coming to her home to help her. We attempted to get the patient up to bedside commode and she was unable to take even one step per nursing report secondary to her being unsteady on her feet. At this time she will require admission for further treatment and evaluation on whether she is safe at home. Treatment Plan: [] Disposition: Admit Impression: 1. Cystitis 2. Frequent falls 3. Hyperglycemia This note was generated with [employer] software. It may contain incorrect words, spelling, and punctuation that were not noted in review of the chart prior to signing ED Disposition - Plan for ED Patient: Chief Complaint: Fall Referrals: Chad Chang MD [Primary Care Provider] -
--- NOTE | 2018-07-08 20:19 | HP.PCM_ITS ---
Problem List (1) Fall Status: Acute (2) Weakness Status: Acute (3) Hyperglycemia Status: Acute (4) HTN (hypertension) Status: Chronic Qualifiers: (5) Anxiety and depression Status: Chronic (6) Type 2 diabetes mellitus Status: Chronic Qualifiers: (7) Paroxysmal atrial fibrillation Status: Chronic (8) Edema Status: Chronic Qualifiers: (9) History of aortic valve replacement with bioprosthetic valve Status: Chronic Comment: 23 mm Saint to trifecta GT valve in June 2016 at [facility]; (10) Hyperlipidemia Status: Chronic Qualifiers: History of Present Illness Date of Admission: 07/08/18 Chief Complaint: fall and weakness The patient is a 83 year old female patient with a complex past medical history with hypertension and diabetes who presents to the ER after falling at home. Hip x-ray is negative ,however, she is now unable to take a step with becoming unsteady. Her initial blood sugar is markedly elevated. She is positive for UTI. She denies chest pain or shortness of breath. The patient was reluctant to admission at first but then realized she is unable to ambulate safely and agrees to admission. Past Medical History Past Medical History (Chronic Problems): Chronic Problems (Last Updated 04/24/18 @ 09:54 by Didi Perez) Nonrheumatic mitral (valve) insufficiency (Chronic) Non-rheumatic tricuspid valve insufficiency (Chronic) HTN (hypertension) (Chronic) Anxiety and depression (Chronic) Ulcer of left lower extremity with fat layer exposed (Chronic) Venous insufficiency of both lower extremities (Chronic) Ulcer of right lower extremity with fat layer exposed (Chronic) Venous ulcers of both lower extremities (Chronic) Type 2 diabetes mellitus (Chronic) Paroxysmal atrial fibrillation (Chronic) Edema (Chronic) Dyspnea on exertion (Chronic) Shortness of breath (Chronic) History of aortic valve replacement with bioprosthetic valve (Chronic ~06/20/16) 23 mm Saint to trifecta GT valve in June 2016 at [facility]; Hyperlipidemia (Chronic) Pulmonary hypertension (Chronic) Medical History: Medical History (Last Updated 04/24/18 @ 09:54 by Didi Perez) Pressure ulcer of left foot, stage 3 (Acute) L89.893 Nonrheumatic mitral (valve) insufficiency (Chronic) I34.0 Non-rheumatic tricuspid valve insufficiency (Chronic) I36.1 HTN (hypertension) (Chronic) I10 Anxiety and depression (Chronic) F41.8 Ulcer of left lower extremity with fat layer exposed (Chronic) L97.922 Venous insufficiency of both lower extremities (Chronic) I87.2 Ulcer of right lower extremity with fat layer exposed (Chronic) L97.912 Venous ulcers of both lower extremities (Chronic) I87.2, L97.919, L97.929 Type 2 diabetes mellitus (Chronic) E11.9 Paroxysmal atrial fibrillation (Chronic) I48.0 Edema (Chronic) R60.9 Dyspnea on exertion (Chronic) R06.09 Shortness of breath (Chronic) R06.02 Hyperlipidemia (Chronic) E78.5 Pulmonary hypertension (Chronic) I27.2 Abnormal pulmonary function test R94.2 GERD (gastroesophageal reflux disease) K21.9 Hiatal hernia K44.9 Nonrheumatic aortic (valve) stenosis I35.0 Abnormal pulmonary function (Inactive) R94.2 Aortic stenosis (Inactive) I35.0 Atrial fibrillation and flutter (Inactive) I48.91, I48.92 Atrial fibrillation with RVR (Inactive) I48.91 DM2 (diabetes mellitus, type 2) (Inactive) E11.9 Diabetes mellitus (Inactive) E11.9 Mitral valve disorder (Inactive) I05.9 Allergies No Known Allergies Allergy (Verified 07/08/18 16:39) Home Medications: Ambulatory Orders Medication Instructions Recorded metformin 1,000 mg tablet 1,000 mg PO BIDCM 0 Days 03/15/18 aspirin 81 mg tablet,delayed 81 mg PO DAILY tab 04/24/18 release glimepiride 4 mg tablet 4 mg PO BID tab 06/27/18 Apixaban [Eliquis] 5 mg PO BID 07/08/18 Atorvastatin Calcium 20 mg PO DAILY 07/08/18 Lisinopril [Zestril] 2.5 mg PO DAILY 07/08/18 Tolterodine Tartrate [Tolterodine 4 mg PO DAILY 07/08/18 Tartrate ER] Surgical History: Surgical History (Last Updated 06/27/18 @ 11:22 by Irina George) History of aortic valve replacement with bioprosthetic valve (Chronic) Onset Date: ~06/20/16 Z95.4 23 mm Saint to trifecta GT valve in June 2016 at [facility]; History of carpal tunnel surgery Z92.89 History of dilatation and curettage Z98.890 History of knee replacement procedure of left knee Z96.652 History of knee replacement procedure of right knee Z96.651 H/O aortic valve replacement (Inactive) Z95.2 06/20/2016 @ [facility] H/O aortic valve replacement (Inactive) Onset Date: ~06/20/16 Z95.2 Surgical History: - - S/P AVR, Carpal Tunnel Release, BL TKR, D+C. Smoking Status: Never smoker - *Family History Paternal Family History: Family History (Last Reviewed 06/27/18 @ 11:22 by Irina George) Father CAD (coronary artery disease) Mother CAD (coronary artery disease) History Items: Dementia, Heart Disease Maternal Family History: Family History (Last Reviewed 06/27/18 @ 11:22 by Irina George) Father CAD (coronary artery disease) Mother CAD (coronary artery disease) History Items: Heart Disease Review of Systems Constitutional: Reports: Weakness, Fatigue. Denies: Chills, Fever, Weight Change HEENT: Denies: Head Aches, Sinus Congestion, Sinus Drainage Cardiovascular: Denies: Chest Pain, Palpitations Respiratory: Denies: Cough, Shortness of breath at rest, Sputum production Gastrointestinal: Denies: Abdominal Pain, Nausea, Vomiting Genitourinary: Denies: Dysuria Musculoskeletal: Denies: Joint Pain, Joint Tenderness Skin: Denies: Rash, Wounds Neurological: Denies: Numbness, Tingling, Focal weakness Psychiatric: Reports: Anxiety. Denies: Depression, Homicidal Ideations, Suicidal Ideations Hematologic/ Lymphatic: Denies: Easy Bruising, Easy Bleeding VTE Information - Inpt Only VTE Present on Admission: No VTE Mechan Device Prophylaxis: None VTE Pharm Prophylaxis ordered?: No Patient Problems: Active and Suspected Problems (Last Updated 04/24/18 @ 09:54 by Didi Perez) Fall (Acute) Weakness (Acute) Hyperglycemia (Acute) - Physical Exam General: Alert, Oriented x3, Cooperative HEENT: Atraumatic, Normocephalic Neck: Supple Lungs: Clear to auscultation, Normal air movement Cardiovascular: Regular rate, Normal S1, Normal S2, No murmurs Abdomen: Bowel Sounds Present, Soft, Non Tender Extremities: No edema Skin: No rashes Musculoskeletal: - - lower extremity weakness Neurological: Neuro grossly intact Psych/Mental Status: Normal Affect, Appropriate Vital Signs Temp Pulse Resp BP Pulse Ox 97.5 F L 76 12 107/41 L 96 07/08/18 16:39 07/08/18 20:00 07/08/18 20:00 07/08/18 18:39 07/08/18 20:00 Oxygen Delivery Method Room Air Weight: 135 lb Body Mass Index (BMI) 25.4 Finger Stick Blood Glucose 394 Laboratory Tests Past 24 Hrs 07/08/18 07/08/18 07/08/18 17:10 17:10 17:40 WBC 9.2 RBC 4.67 Hgb 13.1 Hct 40.6 MCV 86.9 MCH 28.1 MCHC 32.3 RDW 14.7 H RDW Differential 46.5 H Plt Count 285 MPV 10.6 Immature Gran % (Auto) 0.500 Neut % (Auto) 88.2 H Lymph % (Auto) 5.0 L [place] % (Auto) 6.2 Eos % (Auto) 0.0 Baso % (Auto) 0.1 Absolute Neuts (auto) Not Reportable Total Counted Not Reportable Differential Comment Sodium 130 L Potassium 4.2 Chloride 93 L Carbon Dioxide 27.0 Anion Gap 10 BUN 27 H Creatinine 0.88 Estim Creat Clear Calc 37.83 Est GFR (MDRD) Af Amer 79 Est GFR (MDRD) Non-Af 66 BUN/Creatinine Ratio 30.7 H Glucose 551 H* Calcium 8.6 Urine Color Yellow Urine Clarity Cloudy Urine pH 5.0 Ur Specific [place] 1.015 Urine Protein 30 H Urine Glucose (UA) 1000 H Urine Ketones 15 H Urine Occult Blood 25 H Urine Nitrite Positive H Urine Bilirubin Negative Urine Urobilinogen Normal Ur Leukocyte Esterase 100 H Urine RBC 0-5 SEEN Urine WBC 25-50 SEEN Ur Squamous Epith Cells 0 SEEN Urine Bacteria 4+ Urine Mucus 0 SEEN POC Glucose 07/08/18 19:26 POC Glucose 394 H Assessment/Plan All Active Problems (Last Updated 04/24/18 @ 09:54 by Didi Perez) Fall (Acute) Weakness (Acute) Hyperglycemia (Acute) Pressure ulcer of left foot, stage 3 (Acute) Assessment - Fall with ongoing fall risk - hyperglycemia - UTI Plan - admit to general medical floor - pt evaluate and treat for ADLs - continue IV fluid hydration - Rocephin 1 gram IV q day - cbc, bmp in am - continue routine medications - continue Eliquis - SSI in addition to routine management plan Code Visit Inpatient E&M: 37888 Init Hosp L3
[2018-07-08 21:50] VITALS: BP 136/64; PULSE 69; RESP 18; TEMP 35.8; O2SAT 100
[2018-07-08 22:24] VITALS: BMI 25.0
[2018-07-08 22:48] VITALS: BMI 25.0
[2018-07-08 23:00] VITALS: PULSE 69; RESP 18; O2SAT 100
[2018-07-08] MEDS: 0.9% Normal Saline 1,000 ML 75 ML IV (23:15)
[2018-07-08] MEDS: 0.9% NaCl Peripheral Flush Adult/Peds IV (23:15)
[2018-07-08] MEDS: Glimepiride 4 MG Tablet PO (23:16)
[2018-07-08] MEDS: APIXABAN 5 MG TABLET PO (23:16)
[2018-07-08] MEDS: Insulin Lispro 100 UNIT/ML INSULN.PEN SC (23:28)
[2018-07-09] VITALS (11 sets, daily range): BP systolic 87–117; BP diastolic 43–59; PULSE 69–98; RESP 16–18; TEMP 36.5–37.1; O2SAT 94–100
[2018-07-09 00:55] LABS: Bedside Glucose 349 mg/dL (70-110)
[2018-07-09] MEDS: Acetaminophen 325 MG Tablet 650 MG PO (03:55)
[2018-07-09] MEDS: Menthol/Lanolin/Calamine/Znox 113 GM Tube 1 APPLIC TOPICAL ×3 (03:57→22:57)
[2018-07-09] MEDS: Insulin Lispro 100 UNIT/ML INSULN.PEN SC (06:45)
[2018-07-09 06:56] LABS: Bedside Glucose 366 mg/dL (70-110)
[2018-07-09 07:11] LABS: Hematocrit 33.1 % (37-47); Hemoglobin 10.8 g/dl (12.0-15.0); Mean Corp Hgb Conc 32.6 g/gl (32-36); Mean Corpuscular Hgb 28.1 pg (27.0-32.0); Platelet Count 248 K/mm3 (150-450); RBC Distribution Width CV 14.4 % (11.6-14.6); Red Blood Count 3.85 M/mm3 (4.2-5.4); White Blood Count 5.8 K/mm3 (4.4-11.0)
[2018-07-09 07:12] LABS: Scan Indicated on CBC? Y/N NO
[2018-07-09 07:16] LABS: Anion Gap 6 (5-15); BUN 20 mg/dL (7-18); BUN/Creat Ratio 33.4 RATIO (10-20); Calcium,Total 7.5 mg/dL (8.5-10.1); Chloride 101 mmol/L (98-107); EST Glomerular Filtration Rate 102 mL/min (>60); Est Glom Filt Rate - Afr Amer 124 mL/min (>60); Estimated Creatinine Clearance 33.29 ml/min; Glucose 322 mg/dL (74-106); Potassium 3.5 mmol/L (3.5-5.1); Sodium Level 134 mmol/L (136-145)
--- NOTE | 2018-07-09 07:36 | PN_ITS ---
Patient Problems: Active and Suspected Problems (Last Updated 04/24/18 @ 09:54 by Didi Perez) Fall (Acute) Weakness (Acute) Hyperglycemia (Acute) Subjective: Patient is an 83-year-old lady presented with progressive generalized weakness. Patient was found to have acute cystitis on admission. She was also found to have markedly elevated blood glucose on admission admitted to regular nursing floor where patient is currently being managed Objective: GENERAL: Not in distress HEENT: Atraumatic; moist oral mucosa EYES; Anicteric, Normal Conjunctiva NECK; supple, normal thyroid, no distended JVD. RESPIRATORY: Diminished to auscultation bilaterally, CARDIOVASCULAR: Regular S1 S2, systolic murmur GI: soft, non-tender, normoactive bowel sounds, : No Renal angle tenderness; EXTREMITIES: No edema, no clubbing, no cyanosis. MUSCULOSKELETAL: No Joint Tenderness; NEURO: Awake; no lateralizing signs. SKIN: No Rash PSYCH; Normal affect Vitals/I&O's: Vital Signs Temp Pulse Resp BP Pulse Ox 98.2 F 75 18 105/52 L 97 07/09/18 03:50 07/09/18 04:18 07/09/18 03:50 07/09/18 03:50 07/09/18 03:50 Oxygen Delivery Method Room Air Weight: 60.1 kg Body Mass Index (BMI) 25.0 Finger Stick Blood Glucose 394 Intake and Output for Last 24 Hours 07/07/18 07/08/18 07/09/18 23:59 23:59 23:59 Intake Total 1048 / 1048 Output Total 400 / 400 Balance 648 / 648 Laboratory Results 07/08/18 17:10: WBC 9.2, RBC 4.67, Hgb 13.1, Hct 40.6, MCV 86.9, MCH 28.1, MCHC 32.3, RDW 14.7 H, RDW Differential 46.5 H, Plt Count 285, MPV 10.6, Immature Gran % (Auto) 0.500, Neut % (Auto) 88.2 H, Lymph % (Auto) 5.0 L, [place] % (Auto) 6.2, Eos % (Auto) 0.0, Baso % (Auto) 0.1, Absolute Neuts (auto) Not Reportable, Total Counted Not Reportable, Differential Comment 07/08/18 17:10: Sodium 130 L, Potassium 4.2, Chloride 93 L, Carbon Dioxide 27.0, Anion Gap 10, BUN 27 H, Creatinine 0.88, Estim Creat Clear Calc 37.83, Est GFR (MDRD) Af Amer 79, Est GFR (MDRD) Non-Af 66, BUN/Creatinine Ratio 30.7 H, Glucose 551 H*, Calcium 8.6 07/08/18 17:40: Urine Color Yellow, Urine Clarity Cloudy, Urine pH 5.0, Ur Specific [place] 1.015, Urine Protein 30 H, Urine Glucose (UA) 1000 H, Urine Ketones 15 H, Urine Occult Blood 25 H, Urine Nitrite Positive H, Urine Bilirubin Negative, Urine Urobilinogen Normal, Ur Leukocyte Esterase 100 H, Urine RBC 0-5 SEEN, Urine WBC 25-50 SEEN, Ur Squamous Epith Cells 0 SEEN, Urine Bacteria 4+, Urine Mucus 0 SEEN 07/08/18 19:26: POC Glucose 394 H 07/08/18 23:23: POC Glucose 349 H 07/09/18 06:00: WBC 5.8, RBC 3.85 L, Hgb 10.8 L, Hct 33.1 L, MCV 86.0, MCH 28.1, MCHC 32.6, RDW 14.4, RDW Differential 44.0 H, Plt Count 248, MPV 10.0 07/09/18 06:00: Sodium 134 L, Potassium 3.5, Chloride 101, Carbon Dioxide 27.0, Anion Gap 6, BUN 20 H, Creatinine 0.60, Estim Creat Clear Calc 33.29, Est GFR (MDRD) Af Amer 124, Est GFR (MDRD) Non-Af 102, BUN/Creatinine Ratio 33.4 H, Glucose 322 H, Calcium 7.5 L 07/09/18 06:41: POC Glucose 366 H Current Medications Acetaminophen (Tylenol) 650 mg PO Q6H PRN PRN PRN Reason: PAIN Last Admin: 07/09/18 03:55 Dose: 650 mg Apixaban (Eliquis) 5 mg PO BID [facility] Last Admin: 07/08/18 23:16 Dose: 5 mg [facility] Atorvastatin Calcium (Lipitor) 20 mg PO DAILY@2200 [facility] Calamine/Phenol (Calmoseptine Ointment) 1 applic TOPICAL TID [facility]; Protocol Last Admin: 07/09/18 03:57 Dose: 1 applicatio Fluconazole (Fluconazole) 150 mg PO DAILY [facility] Stop: 07/10/18 10:01 Glimepiride (Amaryl) 4 mg PO BIDCM [facility] Last Admin: 07/08/18 23:16 Dose: 4 mg Sodium Chloride () 1,000 mls @ 75 mls/hr IV .[id number] [facility] Last Admin: 07/08/18 23:15 Dose: 75 mls/hr Ceftriaxone Sodium (Rocephin) 1 gm in 50 mls @ 100 mls/hr IV Q24@2200 [facility] Insulin Human Lispro (Humalog Kwikpen (Bkc)) 0 unit SC ACHS [facility]; Protocol Last Admin: 07/09/18 06:45 Dose: 4 u Lisinopril (Zestril) 2.5 mg PO DAILY [facility] Magnesium Hydroxide (Milk Of Magnesia) 30 ml PO DAILY PRN PRN PRN Reason: Constipation Nutritional Formula (Lactose Free) (Glucerna Shake) 120 ml PO 4X/DAY [facility] Sodium Chloride () 5 - 30 ml IV UD PRN PRN Reason: SALINE FLUSH Last Admin: 07/08/18 23:15 Dose: 10 ml Tolterodine Tartrate (Detrol La) 4 mg PO DAILY [facility] Medical Necessity - Tobacco Use Smoking Status: Never smoker Tobacco Use: Secondhand Assessment/Plan All Active Problems (Last Updated 04/24/18 @ 09:54 by Didi Perez) Fall (Acute) Weakness (Acute) Hyperglycemia (Acute) Pressure ulcer of left foot, stage 3 (Acute) Patient is an 83-year-old lady presented with progressive generalized weakness. Patient was found to have acute cystitis on admission. She was also found to have markedly elevated blood glucose on admission admitted to regular nursing floor where patient is currently being managed 1. Acute cystitis patient started on Rocephin admitted to regular nursing floor cultures obtained on admission with plans to adjust antibiotic therapy based on culture result 2. 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 Patient was on high doses of glimepiride 4 mg prior to her admission. This has since been discontinued since it is contraindicated in the elderly patient more so it appears not to be effective given patient high glucose level on presentation. Patient subsequently started on scheduled long-acting insulin and pre-meal insulin 3. Hypertension-blood pressure controlled, home medications continued with dose adjustment as needed 4. Dyslipidemia-patient is on statin therapy, continued at home dose 5. Paroxysmal atrial fibrillation rate controlled on systemic anticoagulation with Eliquis 6. Valvular heart disease with history of aortic valve replacement 7. DVT prophylaxis on Eliquis 8. Hyponatremia secondary to pseudohyponatremia as a result of patient hyperglycemia Active Medications Acetaminophen (Tylenol) 650 mg PO Q6H PRN PRN PRN Reason: PAIN Last Admin: 07/09/18 03:55 Dose: 650 mg Apixaban (Eliquis) 5 mg PO BID [facility] Last Admin: 07/08/18 23:16 Dose: 5 mg [facility]) [facility] Atorvastatin Calcium (Lipitor) 20 mg PO DAILY@2200 [facility] Calamine/Phenol (Calmoseptine Ointment) 1 applic TOPICAL TID [facility]; Protocol Last Admin: 07/09/18 03:57 Dose: 1 applicatio Fluconazole (Fluconazole) 150 mg PO DAILY [facility] Stop: 07/10/18 10:01 [facility]maryl) [facility] Last Admin: 07/08/18 23:16 Dose: 4 mg Sodium Chloride () 1,000 mls @ 75 mls/hr IV .[id number] [facility] Last Admin: 07/08/18 23:15 Dose: 75 mls/hr Ceftriaxone Sodium (Rocephin) 1 gm in 50 mls @ 100 mls/hr IV Q24@2200 [facility] Insulin Human Lispro (Humalog Kwikpen (Bkc)) 0 unit SC ACHS [facility]; Protocol Last Admin: 07/09/18 06:45 Dose: 4 u Lisinopril (Zestril) 2.5 mg PO DAILY [facility] Magnesium Hydroxide (Milk Of Magnesia) 30 ml PO DAILY PRN PRN PRN Reason: Constipation Nutritional Formula (Lactose Free) (Glucerna Shake) 120 ml PO 4X/DAY [facility] Sodium Chloride () 5 - 30 ml IV UD PRN PRN Reason: SALINE FLUSH Last Admin: 07/08/18 23:15 Dose: 10 ml Tolterodine Tartrate (Detrol La) 4 mg PO DAILY [facility] Code Visit Inpatient E&M: [id number] [facility] Hosp
[2018-07-09] MEDS: Aspirin E.C. 81 MG Tablet PO (08:48)
[2018-07-09] MEDS: Insulin Lispro 100 UNIT/ML INSULN.PEN SQ ×2 (08:49→12:54)
[2018-07-09] MEDS: APIXABAN 5 MG TABLET PO ×2 (08:50→22:46)
[2018-07-09] MEDS: Glucerna Shake 120 ML LIQUID PO ×4 (08:50→22:49)
[2018-07-09] MEDS: Tolterodine Tartrate 4 MG CAP.SA PO (08:50)
[2018-07-09] MEDS: FLUCONAZOLE 150 MG TABLET PO (08:50)
--- NOTE | 2018-07-09 09:55 | NURSING ---
wound photo: left medial foot
--- NOTE | 2018-07-09 09:56 | NURSING ---
wound photo: left medial lower leg
--- NOTE | 2018-07-09 09:56 | NURSING ---
wound photo: right medial lower leg
[2018-07-09] MEDS: Nystatin Powder 15gm Bottle 1 APPLIC TOPICAL ×2 (11:36→22:57)
[2018-07-09] MEDS: 0.9% Normal Saline 1,000 ML 75 ML IV (11:36)
[2018-07-09 11:41] LABS: Bedside Glucose 85 mg/dL (70-110)
--- NOTE | 2018-07-09 15:01 | CASEMGMT ---
ROSARIO GRIFFITH intro self and role to [facility]. Pt resting in bed. Awake, very confused. Pt stated, I want to set my cabbage out to dry it. Pt unable to tell ROSARIO GRIFFITH her last name and unable to answer other questions appropriately. Per production trainer question intervention, BRANT is listed as being Akanksha Curran. Copy not found in e-chart. Unable to find Akanksha's phone number in pt's chart and pt unable to tell ROSARIO GRIFFITH who Akanksha is or provide her phone number. Call placed to pt's emergency contact that is listed, Haven. Haven states that Akanksha is pt's sister and she provided phone number for her. Akanksha Curran [phone] Registration/Demographics info updated in computer. Per H/P, pt lives at home alone and has had frequent falls. Deepali ANGUIANO, notified of all of the above. Carlos CELAYA RN, CM
[2018-07-09 15:21] LABS: Bedside Glucose 35 mg/dL (70-110)
[2018-07-09 15:36] LABS: Bedside Glucose 53 mg/dL (70-110)
--- NOTE | 2018-07-09 15:49 | NURSING ---
LATE ENTRY - 1500 - PT VERY SLEEPY, MUMBLING. BGM = 35. PT GIVEN CAN OF COLA & JELLO. STAT GLUCOSE ORDERED. ACCUCHECK AFTER SNACK = 53. PT GIVEN ANOTHER JELLO & AN APPLE JUICE. WILL RECHECK.
[2018-07-09 16:02] LABS: Glucose 30 mg/dL (74-106)
[2018-07-09 16:06] LABS: Bedside Glucose 107 mg/dL (70-110)
--- NOTE | 2018-07-09 16:20 | CHAPLAIN ---
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
[2018-07-09 17:10] LABS: Bedside Glucose 111 mg/dL (70-110)
[2018-07-09] MEDS: Ceftriaxone 1 GM/50 ML BAG IV (22:46)
[2018-07-09] MEDS: Atorvastatin Calcium 20 MG Tablet PO (22:46)
[2018-07-09 23:11] LABS: Bedside Glucose 144 mg/dL (70-110)
[2018-07-10] VITALS (9 sets, daily range): BP systolic 92–120; BP diastolic 50–63; PULSE 69–88; RESP 14–18; TEMP 36.5–37.2; O2SAT 94–99
[2018-07-10] MEDS: 0.9% Normal Saline 1,000 ML 75 ML IV ×2 (01:34→14:23)
[2018-07-10 06:17] LABS: Hematocrit 33.2 % (37-47); Hemoglobin 10.6 g/dl (12.0-15.0); Mean Corp Hgb Conc 31.9 g/gl (32-36); Mean Corpuscular Hgb 27.8 pg (27.0-32.0); Mean Corpuscular Volume 87.1 fL (81-99); Mean Platelet Vol. 9.9 fl (6.2-12.0); Platelet Count 229 K/mm3 (150-450); RBC Distribution Width CV 15.2 % (11.6-14.6); RBC Distribution Width SD 48.8 fl (35.1-43.9); Red Blood Count 3.81 M/mm3 (4.2-5.4); White Blood Count 6.3 K/mm3 (4.4-11.0)
[2018-07-10 06:21] LABS: Scan Indicated on CBC? Y/N NO
[2018-07-10] MEDS: Menthol/Lanolin/Calamine/Znox 113 GM Tube 1 APPLIC TOPICAL ×3 (06:30→21:21)
[2018-07-10 06:41] LABS: Bedside Glucose 95 mg/dL (70-110)
[2018-07-10 06:43] LABS: BUN 19 mg/dL (7-18); Creatinine, Serum 0.65 mg/dL (0.55-1.02); Estimated Creatinine Clearance 33.29 ml/min; Glucose 89 mg/dL (74-106)
[2018-07-10 06:44] LABS: Anion Gap 9 (5-15); BUN/Creat Ratio 29.3 RATIO (10-20); Calcium,Total 7.3 mg/dL (8.5-10.1); Chloride 101 mmol/L (98-107); EST Glomerular Filtration Rate 93 mL/min (>60); Est Glom Filt Rate - Afr Amer 113 mL/min (>60); Magnesium 1.7 mg/dL (1.6-2.6); Potassium 4.1 mmol/L (3.5-5.1); Sodium Level 136 mmol/L (136-145)
--- NOTE | 2018-07-10 07:21 | PN_ITS ---
Patient Problems: Active and Suspected Problems (Last Updated 04/24/18 @ 09:54 by Didi Perez) Fall (Acute) Weakness (Acute) Hyperglycemia (Acute) Subjective: Patient seen had another hypoglycemic episode this a.m. Subsequent adjustment made in her insulin regimen. Urine cultures back positive for E. coli final sensitivities pending Objective: GENERAL: lethargic HEENT: Atraumatic; moist oral mucosa EYES; Anicteric, Normal Conjunctiva NECK; supple, normal thyroid, no distended JVD. RESPIRATORY: Diminished to auscultation bilaterally, CARDIOVASCULAR: Regular S1 S2, systolic murmur GI: soft, non-tender, normoactive bowel sounds, : No Renal angle tenderness; EXTREMITIES: No edema, no clubbing, no cyanosis. MUSCULOSKELETAL: No Joint Tenderness; NEURO: no lateralizing signs. SKIN: Nonpressure scabies on both lower extremities PSYCH; Normal affect Vitals/I&O's: Vital Signs Temp Pulse Resp BP Pulse Ox 97.7 F L 76 14 104/63 94 07/10/18 02:32 07/10/18 02:32 07/10/18 02:32 07/10/18 02:32 07/10/18 02:32 Oxygen Delivery Method Room Air Weight: 60.1 kg Body Mass Index (BMI) 25.0 Finger Stick Blood Glucose 394 Intake and Output for Last 24 Hours 07/08/18 07/09/18 07/10/18 23:59 23:59 23:59 Intake Total 3373 / 3373 1003 / 1003 Output Total 700 / 700 Balance 2673 / 2673 1003 / 1003 Microbiology Past 72 Hours 07/08/18 17:40 Urine Catheter - Catheter Urine Culture - Preliminary Presumptive E. coli Laboratory Results 07/09/18 11:31: POC Glucose 85 07/09/18 15:09: POC Glucose 35 L* 07/09/18 15:31: Glucose 30 L* 07/09/18 15:31: POC Glucose 53 L 07/09/18 16:02: POC Glucose 107 07/09/18 17:05: POC Glucose 111 H 07/09/18 22:56: POC Glucose 144 H 07/10/18 06:00: WBC 6.3, RBC 3.81 L, Hgb 10.6 L, Hct 33.2 L, MCV 87.1, MCH 27.8, MCHC 31.9 L, RDW 15.2 H, RDW Differential 48.8 H, Plt Count 229, MPV 9.9 07/10/18 06:00: Sodium 136, Potassium 4.1, Chloride 101, Carbon Dioxide 26.0, Anion Gap 9, BUN 19 H, Creatinine 0.65, Estim Creat Clear Calc 33.29, Est GFR (MDRD) Af Amer 113, Est GFR (MDRD) Non-Af 93, BUN/Creatinine Ratio 29.3 H, Glucose 89, Calcium 7.3 L, Magnesium 1.7 07/10/18 06:27: POC Glucose 95 Current Medications Acetaminophen (Tylenol) 650 mg PO Q6H PRN PRN PRN Reason: PAIN Last Admin: 07/09/18 03:55 Dose: 650 mg Apixaban (Eliquis) 5 mg PO BID [facility] Last Admin: 07/09/18 22:46 Dose: 5 mg Aspirin (Ecotrin) 81 mg PO DAILYCM [facility] Last Admin: 07/09/18 08:48 Dose: 81 mg Atorvastatin Calcium (Lipitor) 20 mg PO DAILY@0 [facility] Last Admin: 07/09/18 22:46 Dose: 20 mg Calamine/Phenol (Calmoseptine Ointment) 1 applic TOPICAL TID [facility]; Protocol Last Admin: 07/10/18 06:30 Dose: 1 applicatio Dextrose (D50w Syringe) 0 gm IV X1 PRN; Protocol PRN Reason: Hypoglycemia Fluconazole (Fluconazole) 150 mg PO DAILY [facility] Stop: 07/10/18 10:01 Last Admin: 07/09/18 08:50 Dose: 150 mg Glucagon () 1 mg IM .X1 PRN PRN Reason: Hypoglycemia Sodium Chloride () 1,000 mls @ 75 mls/hr IV .[id number] [facility] Last Admin: 07/10/18 01:34 Dose: 75 mls/hr Ceftriaxone Sodium (Rocephin) 1 gm in 50 mls @ 100 mls/hr IV Q24@2200 [facility] Last Admin: 07/09/18 22:46 Dose: 100 mls/hr Insulin Glargine (Lantus (Bkc)) 10 units SC BREAKFAST [facility] Insulin Human Lispro (Humalog Kwikpen (Bkc)) 0 unit SC ACHS [facility]; Protocol Last Admin: 07/10/18 06:30 Dose: Not Given Lisinopril (Zestril) 2.5 mg PO DAILY [facility] Last Admin: 07/09/18 09:09 Dose: Not Given Magnesium Hydroxide (Milk Of Magnesia) 30 ml PO DAILY PRN PRN PRN Reason: Constipation Nutritional Formula (Lactose Free) (Glucerna Shake) 120 ml PO 4X/DAY [facility] Last Admin: 07/09/18 22:49 Dose: 120 ml Nystatin (Mycostatin Powder) 1 applic TOPICAL BID [facility]; Protocol Last Admin: 07/09/18 22:57 Dose: 1 applicatio Sodium Chloride () 5 - 30 ml IV UD PRN PRN Reason: SALINE FLUSH Last Admin: 07/08/18 23:15 Dose: 10 ml Tolterodine Tartrate (Detrol La) 4 mg PO DAILY [facility] Last Admin: 07/09/18 08:50 Dose: 4 mg Medical Necessity - Tobacco Use Smoking Status: Never smoker Tobacco Use: Secondhand Assessment/Plan All Active Problems (Last Updated 04/24/18 @ 09:54 by Didi Perez) Fall (Acute) Weakness (Acute) Hyperglycemia (Acute) Pressure ulcer of left foot, stage 3 (Acute) Patient is an 83-year-old lady presented with progressive generalized weakness. Patient was found to have acute cystitis on admission. She was also found to have markedly elevated blood glucose on admission admitted to regular nursing floor where patient is currently being managed 1. Acute cystitis E. coli ; patient started on Rocephin admitted to regular nursing floor cultures obtained on admission with plans to adjust antibiotic therapy based on culture result 2. Acute metabolic encephalopathy secondary to hypoglycemia patient's insulin regimen subsequently adjusted 3. 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 Patient was on high doses of glimepiride 4 mg prior to her admission. This has since been discontinued since it is contraindicated in the elderly patient more so it appears not to be effective given patient high glucose level on presentation. Patient subsequently started on scheduled long-acting insulin and pre-meal insulin with subsequent adjustment made inpatient insulin regimen following her hypoglycemic episodes 4. Hypertension-blood pressure controlled, home medications continued with dose adjustment as needed 5. Dyslipidemia-patient is on statin therapy, continued at home dose 6. Paroxysmal atrial fibrillation rate controlled on systemic anticoagulation with Eliquis 7. Valvular heart disease with history of aortic valve replacement 8. DVT prophylaxis on Eliquis 9. Hyponatremia secondary to pseudohyponatremia as a result of patient hyperglycemia 10. Non-pressure, noninfectious skin ulcers on both lower extremities do suspect etiology to be secondary to patient probably scratching her skin. Active Medications Acetaminophen (Tylenol) 650 mg PO Q6H PRN PRN PRN Reason: PAIN Last Admin: 07/09/18 03:55 Dose: 650 mg Apixaban (Eliquis) 5 mg PO BID [facility] Last Admin: 07/09/18 22:46 Dose: 5 mg Aspirin (Ecotrin) 81 mg PO DAILYCM [facility] Last Admin: 07/09/18 08:48 Dose: 81 mg Atorvastatin Calcium (Lipitor) 20 mg PO DAILY@2200 [facility] Last Admin: 07/09/18 22:46 Dose: 20 mg Calamine/Phenol (Calmoseptine Ointment) 1 applic TOPICAL TID [facility]; Protocol Last Admin: 07/10/18 06:30 Dose: 1 applicatio Dextrose (D50w Syringe) 0 gm IV X1 PRN; Protocol PRN Reason: Hypoglycemia Fluconazole (Fluconazole) 150 mg PO DAILY [facility] Stop: 07/10/18 10:01 Last Admin: 07/09/18 08:50 Dose: 150 mg Glucagon () 1 mg IM .X1 PRN PRN Reason: Hypoglycemia Sodium Chloride () 1,000 mls @ 75 mls/hr IV .[id number] [facility] Last Admin: 07/10/18 01:34 Dose: 75 mls/hr Ceftriaxone Sodium (Rocephin) 1 gm in 50 mls @ 100 mls/hr IV Q24@2200 [facility] Last Admin: 07/09/18 22:46 Dose: 100 mls/hr Insulin Glargine (Lantus (Bkc)) 10 units SC BREAKFAST [facility] Insulin Human Lispro (Humalog Kwikpen (Bkc)) 0 unit SC ACHS [facility]; Protocol Last Admin: 07/10/18 06:30 Dose: Not Given Lisinopril (Zestril) 2.5 mg PO DAILY [facility] Last Admin: 07/09/18 09:09 Dose: Not Given Magnesium Hydroxide (Milk Of Magnesia) 30 ml PO DAILY PRN PRN PRN Reason: Constipation Nutritional Formula (Lactose Free) (Glucerna Shake) 120 ml PO 4X/DAY [facility] Last Admin: 07/09/18 22:49 Dose: 120 ml Nystatin (Mycostatin Powder) 1 applic TOPICAL BID [facility]; Protocol Last Admin: 07/09/18 22:57 Dose: 1 applicatio Sodium Chloride () 5 - 30 ml IV UD PRN PRN Reason: SALINE FLUSH Last Admin: 07/08/18 23:15 Dose: 10 ml Tolterodine Tartrate (Detrol La) 4 mg PO DAILY [facility] Last Admin: 07/09/18 08:50 Dose: 4 mg Clinical Impression(s) from Imaging Studies Hip/Pelvis X-Ray 07/08/18 17:50 IMPRESSION: No acute bony injury of the pelvis and hip. Electronically Signed: Lebron Lopez DO at 18:28 EST Tel [phone], Service support , Microbiology 07/08/18 17:40 Urine Catheter - Catheter Urine Culture - Preliminary Presumptive E. coli Code Visit Inpatient E&M: 68701 Subs Hosp L3
[2018-07-10] MEDS: Aspirin E.C. 81 MG Tablet PO (08:32)
[2018-07-10] MEDS: Nystatin Powder 15gm Bottle 1 APPLIC TOPICAL ×2 (09:55→21:22)
[2018-07-10] MEDS: Tolterodine Tartrate 4 MG CAP.SA PO (09:55)
[2018-07-10] MEDS: APIXABAN 5 MG TABLET PO ×2 (09:55→21:52)
[2018-07-10] MEDS: FLUCONAZOLE 150 MG TABLET PO (09:55)
[2018-07-10] MEDS: Lisinopril 2.5 MG Tablet PO (09:56)
[2018-07-10] MEDS: Glucerna Shake 120 ML LIQUID PO ×4 (09:58→21:53)
[2018-07-10 11:21] LABS: Bedside Glucose 195 mg/dL (70-110)
[2018-07-10] MEDS: Insulin Lispro 100 UNIT/ML INSULN.PEN SC ×3 (11:32→21:22)
--- NOTE | 2018-07-10 14:00 | CASEMGMT ---
Addendum entered by Inga Moulton 07/10/18 14:13: Green sheet on chart. Original Note: Social Work Note SW met with pt to confirm discharge plans. Pt is confused. Pt gave this worker permission to call her sister Akanksha to discuss discharge plans. SW placed a call to pt's sister Akanksha. Akanksha states that she faxed advanced directives to Medical Records yesterday and she called to confirm that Medical Records got the documents. SILVIO explained that currently, the documents have not been scanned into the system but that this worker will call Medical Records to confirm if they got the documents. SILVIO explained that currently pt is max assist of two and per PT pt is unable to return home at this time. Akanksha states she would like the unit at the hospital for rehab. SILVIO explained TCU and that this worker will have to check on bed availability. Akanksha states understanding. SW placed a call to [facility] in TCU. Per [facility] she is able to accept pt tomorrow. SILVIO placed a call to Medical Records. Medical records has advanced directive documents and will scan them into [facility] system. Advanced Directives placed on pt's chart. SILVIO placed a call to pt's sister Akanksha and updated her that pt has been accepted in to TCU and if medically cleared can discharge tomorrow. SILVIO informed [facility] that pt's advanced directives were received and placed on pt's chart. Akanksha states understanding. Plan: TCU or when medically cleared Inga Moulton TELEMARKETING AGENT, AIR BRAKE ADJUSTER
[2018-07-10] MEDS: Ciprofloxacin 250 MG Tablet PO ×2 (14:17→21:53)
[2018-07-10 16:36] LABS: Bedside Glucose 271 mg/dL (70-110)
[2018-07-10] MEDS: Atorvastatin Calcium 20 MG Tablet PO (21:53)
[2018-07-10 22:10] LABS: Bedside Glucose 284 mg/dL (70-110)
--- NOTE | 2018-07-10 23:28 | NURSING ---
SPOKE WITH PATIENTS SISTER IN [place], UPDATED. SISTER GOING TO COME UP TO SEE PATIENT ON SUNDAY
[2018-07-11 00:01] VITALS: PULSE 78
[2018-07-11 03:04] VITALS: BP 96/61; PULSE 81; RESP 18; TEMP 37; O2SAT 100
[2018-07-11 03:57] VITALS: PULSE 71
[2018-07-11] MEDS: 0.9% Normal Saline 1,000 ML 75 ML IV (04:20)
[2018-07-11] MEDS: Menthol/Lanolin/Calamine/Znox 113 GM Tube 1 APPLIC TOPICAL (06:14)
[2018-07-11 06:15] LABS: Bedside Glucose 276 mg/dL (70-110)
[2018-07-11] MEDS: Insulin Lispro 100 UNIT/ML INSULN.PEN SC ×2 (06:16→11:53)
[2018-07-11 06:30] LABS: Hematocrit 33.4 % (37-47); Hemoglobin 10.6 g/dl (12.0-15.0); Mean Corp Hgb Conc 31.7 g/gl (32-36); Mean Corpuscular Hgb 28.1 pg (27.0-32.0); Mean Corpuscular Volume 88.6 fL (81-99); Mean Platelet Vol. 10.2 fl (6.2-12.0); Platelet Count 252 K/mm3 (150-450); RBC Distribution Width CV 15.3 % (11.6-14.6); RBC Distribution Width SD 48.6 fl (35.1-43.9); Red Blood Count 3.77 M/mm3 (4.2-5.4); White Blood Count 6.2 K/mm3 (4.4-11.0)
[2018-07-11 06:33] LABS: Scan Indicated on CBC? Y/N NO
[2018-07-11 06:34] LABS: Anion Gap 5 (5-15); BUN 15 mg/dL (7-18); BUN/Creat Ratio 23.9 RATIO (10-20); Calcium,Total 7.3 mg/dL (8.5-10.1); Chloride 100 mmol/L (98-107); Creatinine, Serum 0.63 mg/dL (0.55-1.02); EST Glomerular Filtration Rate 97 mL/min (>60); Est Glom Filt Rate - Afr Amer 117 mL/min (>60); Estimated Creatinine Clearance 33.29 ml/min; Glucose 251 mg/dL (74-106); Potassium 4.3 mmol/L (3.5-5.1); Sodium Level 132 mmol/L (136-145)
[2018-07-11] MEDS: Aspirin E.C. 81 MG Tablet PO (07:54)
--- NOTE | 2018-07-11 08:01 | PN_ITS ---
Patient Problems: Active and Suspected Problems (Last Updated 04/24/18 @ 09:54 by Didi Perez) Fall (Acute) Weakness (Acute) Hyperglycemia (Acute) Subjective: Patient seen much more awake and communicative. Plan is for patient to be transferred to a long term facility Objective: GENERAL: Not in distress HEENT: Atraumatic; moist oral mucosa EYES; Anicteric, Normal Conjunctiva NECK; supple, normal thyroid, no distended JVD. RESPIRATORY: Diminished to auscultation bilaterally, CARDIOVASCULAR: Regular S1 S2, systolic murmur GI: soft, non-tender, normoactive bowel sounds, : No Renal angle tenderness; EXTREMITIES: No edema, no clubbing, no cyanosis. MUSCULOSKELETAL: No Joint Tenderness; NEURO: Awake; no lateralizing signs. SKIN: No Rash PSYCH; Normal affect Vitals/I&O's: Vital Signs Temp Pulse Resp BP Pulse Ox 98.6 F 71 18 96/61 100 07/11/18 03:04 07/11/18 03:57 07/11/18 03:04 07/11/18 03:04 07/11/18 03:04 Oxygen Delivery Method Room Air Weight: 60.1 kg Body Mass Index (BMI) 25.0 Finger Stick Blood Glucose 394 Intake and Output for Last 24 Hours 07/09/18 07/10/18 07/11/18 23:59 23:59 23:59 Intake Total 3373 / 3373 2548 / 2548 514 / 514 Output Total 700 / 700 525 / 525 Balance 2673 / 2673 2022 / 2022 514 / 514 Microbiology Past 72 Hours 07/08/18 17:40 Urine Catheter - Catheter Urine Culture - Final Presumptive E. coli Laboratory Results 07/10/18 11:11: POC Glucose 195 H 07/10/18 16:23: POC Glucose 271 H 07/10/18 21:15: POC Glucose 284 H 07/11/18 05:35: WBC 6.2, RBC 3.77 L, Hgb 10.6 L, Hct 33.4 L, MCV 88.6, MCH 28.1, MCHC 31.7 L, RDW 15.3 H, RDW Differential 48.6 H, Plt Count 252, MPV 10.2 07/11/18 05:35: Sodium 132 L, Potassium 4.3, Chloride 100, Carbon Dioxide 27.0, Anion Gap 5, BUN 15, Creatinine 0.63, Estim Creat Clear Calc 33.29, Est GFR (MDRD) Af Amer 117, Est GFR (MDRD) Non-Af 97, BUN/Creatinine Ratio 23.9 H, Glucose 251 H, Calcium 7.3 L 07/11/18 06:10: POC Glucose 276 H Current Medications Acetaminophen (Tylenol) 650 mg PO Q6H PRN PRN PRN Reason: PAIN Last Admin: 07/09/18 03:55 Dose: 650 mg Apixaban (Eliquis) 5 mg PO BID [facility] Last Admin: 07/10/18 21:52 Dose: 5 mg Aspirin (Ecotrin) 81 mg PO DAILYCM [facility] Last Admin: 07/11/18 07:54 Dose: 81 mg Atorvastatin Calcium (Lipitor) 20 mg PO DAILY@2200 [facility] Last Admin: 07/10/18 21:53 Dose: 20 mg Calamine/Phenol (Calmoseptine Ointment) 1 applic TOPICAL TID [facility]; Protocol Last Admin: 07/11/18 06:14 Dose: 1 applicatio Ciprofloxacin HCl (Cipro) 250 mg PO BID [facility] Last Admin: 07/10/18 21:53 Dose: 250 mg Dextrose (D50w Syringe) 0 gm IV X1 PRN; Protocol PRN Reason: Hypoglycemia Glucagon () 1 mg IM .X1 PRN PRN Reason: Hypoglycemia Sodium Chloride () 1,000 mls @ 75 mls/hr IV .[id number] [facility] Last Admin: 07/11/18 04:20 Dose: 75 mls/hr Insulin Glargine (Lantus (Bkc)) 10 units SC BREAKFAST [facility] Last Admin: 07/11/18 07:53 Dose: 10 u Insulin Human Lispro (Humalog Kwikpen (Bkc)) 0 unit SC ACHS [facility]; Protocol Last Admin: 07/11/18 06:16 Dose: 3 u Lisinopril (Zestril) 2.5 mg PO DAILY [facility] Last Admin: 07/10/18 09:56 Dose: 2.5 mg Magnesium Hydroxide (Milk Of Magnesia) 30 ml PO DAILY PRN PRN PRN Reason: Constipation Nutritional Formula (Lactose Free) (Glucerna Shake) 120 ml PO 4X/DAY [facility] Last Admin: 07/10/18 21:53 Dose: 120 ml Nystatin (Mycostatin Powder) 1 applic TOPICAL BID [facility]; Protocol Last Admin: 07/10/18 21:22 Dose: 1 applicatio Sodium Chloride () 5 - 30 ml IV UD PRN PRN Reason: SALINE FLUSH Last Admin: 07/08/18 23:15 Dose: 10 ml Tolterodine Tartrate (Detrol La) 4 mg PO DAILY [facility] Last Admin: 07/10/18 09:55 Dose: 4 mg Medical Necessity - Tobacco Use Smoking Status: Never smoker Tobacco Use: Secondhand Assessment/Plan All Active Problems (Last Updated 04/24/18 @ 09:54 by Didi Perez) Fall (Acute) Weakness (Acute) Hyperglycemia (Acute) Pressure ulcer of left foot, stage 3 (Acute) Patient is an 83-year-old lady presented with progressive generalized weakness. Patient was found to have acute cystitis on admission. She was also found to have markedly elevated blood glucose on admission admitted to regular nursing floor where patient is currently being managed 1. Acute cystitis E. coli ; patient was initially treated with Rocephin switched to Cipro after obtaining culture and sensitivities 2. Acute metabolic encephalopathy secondary to hypoglycemia patient's insulin regimen subsequently adjusted 3. 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 Patient was on high doses of glimepiride 4 mg prior to her admission. This has since been discontinued since it is contraindicated in the elderly patient more so it appears not to be effective given patient high glucose level on presentation. Patient subsequently started on scheduled long-acting insulin and pre-meal insulin with subsequent adjustment made inpatient insulin regimen following her hypoglycemic episodes 4. Hypertension-blood pressure controlled, home medications continued with dose adjustment as needed 5. Dyslipidemia-patient is on statin therapy, continued at home dose 6. Paroxysmal atrial fibrillation rate controlled on systemic anticoagulation with Eliquis 7. Valvular heart disease with history of aortic valve replacement 8. DVT prophylaxis on Eliquis 9. Hyponatremia secondary to pseudohyponatremia as a result of patient hyperglycemia 10. Non-pressure, noninfectious skin ulcers on both lower extremities do suspect etiology to be secondary to patient probably scratching her skin. 7. Physical deconditioning: Did consult PT OT plan is for patient to be discharged to long term facility Advance planning; did discuss with the patient and family regarding her advanced directives as well as CODE STATUS. Did explain the various modalities involved ( FULL CODE, DNR CCA, DNR CCA with no intubation, and DNR CC ) patient elected to to remain full code. Order was placed. Time spent on discussion 19 minutes. Code Visit Procedures: 05581 Advncd Care Plan 30 Min
--- NOTE | 2018-07-11 08:03 | DCINST_ITS ---
- Discharge Diagnoses Current Active Problems: Current Active and Chronic Problems (Last Updated 04/24/18 @ 09:54 by Didi Perez) Fall (Acute) Weakness (Acute) Hyperglycemia (Acute) You will use the following diet at home:: Calorie/Carbohydrate Controlled (specify 1200, 1400, etc) - 1800 Your food should be the consistency of: Regular Discharge Activity: Return to Normal Activity Allergies/Adverse Reactions: Allergies No Known Allergies Allergy (Verified 07/08/18 16:39) Medications to take at Discharge metformin 1,000 mg tablet 1,000 mg PO BIDCM 0 Days 03/15/18 aspirin 81 mg tablet,delayed release 81 mg PO DAILY tab 04/24/18 Apixaban [Eliquis] 5 mg PO BID 07/08/18 Atorvastatin Calcium 20 mg PO DAILY 07/08/18 Lisinopril [Zestril] 5 mg PO DAILY 07/08/18 Tolterodine Tartrate [Tolterodine Tartrate ER] 4 mg PO DAILY 07/08/18 Acetaminophen [Tylenol Tablet] 650 mg PO Q6H PRN PRN tablet 07/11/18 Ciprofloxacin [Cipro] 250 mg PO BID #6 tablet 07/11/18 Glucerna Shake 120 ml PO 4X/DAY liquid 07/11/18 Insulin Glargine [Lantus SoloStar Pen] 10 units SC BREAKFAST pen 07/11/18 Insulin Lispro [Humalog KwikPen] See Protocol SC ACHS insuln.pen 07/11/18 The following prescriptions were given: Ciprofloxacin [Cipro] 250 mg PO BID #6 tablet Primary Care Physician: Chad Chang MD [Primary Care Provider] - Test Results: Test results from this visit will be discussed in further detail at your follow- up appointment, if applicable. Proposed Discharge Date: 07/11/18
--- NOTE | 2018-07-11 08:03 | PCM.DC.SUM ---
Discharge Date and Diagnosis - Problem List Patient Problems: Active and Suspected Problems (Last Updated 07/11/18 @ 08:02 by Paulo Davey MD) Acute cystitis (Acute) E. coli infection (Acute) Fall (Acute) Weakness (Acute) Hyperglycemia (Acute) Date of Admission: 07/08/18 Date of Discharge: 07/11/18 - Primary Discharge Diagnosis Active and Suspected Problems (Last Updated 07/11/18 @ 08:02 by Paulo Davey MD) Acute cystitis (Acute) E. coli infection (Acute) Fall (Acute) Weakness (Acute) Hyperglycemia (Acute) - Secondary Discharge Diagnosis Chronic Problems (Last Updated 07/11/18 @ 08:02 by Paulo Davey MD) Nonrheumatic mitral (valve) insufficiency (Chronic) Non-rheumatic tricuspid valve insufficiency (Chronic) HTN (hypertension) (Chronic) Anxiety and depression (Chronic) Ulcer of left lower extremity with fat layer exposed (Chronic) Venous insufficiency of both lower extremities (Chronic) Ulcer of right lower extremity with fat layer exposed (Chronic) Venous ulcers of both lower extremities (Chronic) Type 2 diabetes mellitus (Chronic) Paroxysmal atrial fibrillation (Chronic) Edema (Chronic) Dyspnea on exertion (Chronic) Shortness of breath (Chronic) History of aortic valve replacement with bioprosthetic valve (Chronic ~06/20/16) 23 mm Saint to trifecta GT valve in June 2016 at [facility]; Hyperlipidemia (Chronic) Pulmonary hypertension (Chronic) Hospital Course and Treatment Imaging Results: Microbiology 07/08/18 17:40 Urine Catheter - Catheter Urine Culture - Final Presumptive E. coli Consultations 07/09/18 00:17 Consult: Onc/Wound/video game maker Routine Comment: Operations: None Summary of Care Provided: Patient is an 83-year-old lady presented with progressive generalized weakness. Patient was found to have acute cystitis on admission. She was also found to have markedly elevated blood glucose on admission admitted to regular nursing floor where patient was managed 1. Acute cystitis E. coli ; patient was initially treated with Rocephin switched to Cipro after obtaining culture and sensitivities 2. Acute metabolic encephalopathy secondary to hypoglycemia patient's insulin regimen subsequently adjusted 3. 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 Patient was on high doses of glimepiride 4 mg prior to her admission. This has since been discontinued since it is contraindicated in the elderly patient more so it appears not to be effective given patient high glucose level on presentation. Patient subsequently started on scheduled long-acting insulin and pre-meal insulin with subsequent adjustment made inpatient insulin regimen following her hypoglycemic episodes 4. Hypertension-blood pressure controlled, home medications continued with dose adjustment as needed 5. Dyslipidemia-patient is on statin therapy, continued at home dose 6. Paroxysmal atrial fibrillation rate controlled on systemic anticoagulation with Eliquis 7. Valvular heart disease with history of aortic valve replacement 8. DVT prophylaxis on Eliquis 9. Hyponatremia secondary to pseudohyponatremia as a result of patient hyperglycemia 10. Non-pressure, noninfectious skin ulcers on both lower extremities do suspect etiology to be secondary to patient probably scratching her skin. 7. Physical deconditioning: Did consult PT OT plan is for [facility] Advance planning; did discuss with the patient and family regarding her advanced directives as well as CODE STATUS. Did explain the various modalities involved ( FULL CODE, DNR CCA, DNR CCA with no intubation, and DNR CC ) patient elected to to remain full code. Order was placed. Time spent on discussion 19 minutes. Patient Problems: Active and Suspected Problems (Last Updated 07/11/18 @ 08:02 by Paulo Davey MD) Acute cystitis (Acute) E. coli infection (Acute) Fall (Acute) Weakness (Acute) Hyperglycemia (Acute) - Physical Exam Oral: Moist Mucosa Neck: Supple Lungs: Clear to auscultation Cardiovascular: Regular rate, Regular Rhythm Neurological: Neuro grossly intact Psych/Mental Status: Normal Affect Vital Signs Temp Pulse Resp BP Pulse Ox 98.6 F 71 18 96/61 100 07/11/18 03:04 07/11/18 03:57 07/11/18 03:04 07/11/18 03:04 07/11/18 03:04 Oxygen Delivery Method Room Air Weight: 60.1 kg Body Mass Index (BMI) 25.0 Finger Stick Blood Glucose 394 Intake and Output for Last 24 Hours 07/09/18 07/10/18 07/11/18 23:59 23:59 23:59 Intake Total 3373 / 3373 2548 / 2548 514 / 514 Output Total 700 / 700 525 / 525 Balance 2673 / 2673 2022 / 2022 514 / 514 Microbiology Past 72 Hours 07/08/18 17:40 Urine Culture - Final Urine Catheter - Catheter Presumptive E. coli Laboratory Tests Past 24 Hrs 07/11/18 07/11/18 05:35 05:35 WBC 6.2 RBC 3.77 L Hgb 10.6 L Hct 33.4 L MCV 88.6 MCH 28.1 MCHC 31.7 L RDW 15.3 H RDW Differential 48.6 H Plt Count 252 MPV 10.2 Sodium 132 L Potassium 4.3 Chloride 100 Carbon Dioxide 27.0 Anion Gap 5 BUN 15 Creatinine 0.63 Estim Creat Clear Calc 33.29 Est GFR (MDRD) Af Amer 117 Est GFR (MDRD) Non-Af 97 BUN/Creatinine Ratio 23.9 H Glucose 251 H Calcium 7.3 L POC Glucose 07/11/18 07/10/18 07/10/18 06:10 21:15 16:23 POC Glucose 276 H 284 H 271 H 07/10/18 11:11 POC Glucose 195 H Discharge Diet: 1800 Calorie Control Diet Discharge Activity: Return to Normal Activity Home Medications: Medications to take at Discharge metformin 1,000 mg tablet 1,000 mg PO BIDCM 0 Days 03/15/18 aspirin 81 mg tablet,delayed release 81 mg PO DAILY tab 04/24/18 Apixaban [Eliquis] 5 mg PO BID 07/08/18 Atorvastatin Calcium 20 mg PO DAILY 07/08/18 Lisinopril [Zestril] 5 mg PO DAILY 07/08/18 Tolterodine Tartrate [Tolterodine Tartrate ER] 4 mg PO DAILY 07/08/18 Acetaminophen [Tylenol Tablet] 650 mg PO Q6H PRN PRN tablet 07/11/18 Ciprofloxacin [Cipro] 250 mg PO BID #6 tablet 07/11/18 Glucerna Shake 120 ml PO 4X/DAY liquid 07/11/18 Insulin Glargine [Lantus SoloStar Pen] 10 units SC BREAKFAST pen 07/11/18 Insulin Lispro [Humalog KwikPen] See Protocol SC ACHS [email or web address] 07/11/18 Following Prescrptions Were Given to Patient: Ciprofloxacin [Cipro] 250 mg PO BID #6 tablet Primary Care Physician: Chad Chang MD [Primary Care Provider] - Please follow up with your Primary Care Physician in: in 1-2 weeks Disposition: Alf facility Minutes spent on discharge:: 35 Patient Condition:: Stable Medical Necessity - Tobacco Use Smoking Status: Never smoker Tobacco Use: Secondhand Meaningful Use Info Meaningful Use Diagnoses (Choose all that apply): None applicable Code Visit Inpatient E&M: 64681 Disch Hosp
--- NOTE | 2018-07-11 08:04 | TREXTCAR_ITS ---
- Diet 07/09/18 00:18 Diet: Carbohydrate Controlled Is pt able to select menu?: No Diet Comments: please send addaptive silverware (large handled) - Routine Orders/Code Status Code Status: Full Code - Wound(s) L knee Wound Type: Abrasion L inner foot Wound Type: Neuropathic/Diabetic Foot Ulcer Dressing Change: Dry Sterile Dressing L forearm Wound Type: Skin Tear Dressing Change: Adaptic R knee Wound Type: Abrasion R bunion Wound Type: Neuropathic/Diabetic Foot Ulcer R inner calf Wound Type: Stasis Ulcer Dressing Change: Dry Sterile Dressing L inner calf Wound Type: Stasis Ulcer Dressing Change: Dry Sterile Dressing Inner Thighs Wound Type: Scabs - Therapies Physical Therapy: Eval and Treat Occupational Therapy: Eval and Treat - Allergies/Procedures Done in Hospital Allergies/Adverse Reactions: Allergies No Known Allergies Allergy (Verified 07/08/18 16:39) - Type of Care/Length of Stay Estimated LOS: Convalescent Care Less Than 30 days Type of Care Needed: Skilled Rehab Potential: Good Prognosis: Good - Additional Orders/Day of Discharge Day of Discharge: 07/11/18 - Dietary and Speech Recommendations Dietitian Recommendations/Changes: Rec 1 packet Fer BID d/t ulcerative diabetic wound and BLE scattered scabs and abrasions- must be ordered from pharmacy. Rec diet change to 1600 calorie controlled. 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 - Follow Up Care Primary Care Physician: Chad Chang MD [Primary Care Provider] - Please follow up with your Primary Care Physician in: in 1-2 weeks
[2018-07-11 09:00] VITALS: RESP 18
[2018-07-11 09:04] VITALS: BP 123/105; PULSE 72; RESP 18; TEMP 36.8; O2SAT 100
[2018-07-11] MEDS: Nystatin Powder 15gm Bottle 1 APPLIC TOPICAL (09:52)
[2018-07-11] MEDS: Glucerna Shake 120 ML LIQUID PO (09:53)
[2018-07-11] MEDS: Ciprofloxacin 250 MG Tablet PO (09:54)
[2018-07-11] MEDS: Tolterodine Tartrate 4 MG CAP.SA PO (09:54)
[2018-07-11] MEDS: APIXABAN 5 MG TABLET PO (09:54)
[2018-07-11] MEDS: Lisinopril 2.5 MG Tablet PO (09:54)
[2018-07-11 12:00] LABS: Bedside Glucose 414 mg/dL (70-110)
[2018-07-11 12:38] VITALS: BP 136/96; PULSE 84; RESP 18; TEMP 36.5
== END 2018-07-11 12:45 | disposition skilled nursing facility (03) | DRG 689 ==
LOC: ED 18:29 → MS3 22:04
PROVIDERS: Admitting Provider Family Medicine; Emergency Provider Emergency Medicine; Family Provider Family Medicine; PCP Family Medicine; Visit Provider Internal Medicine
DX: N30.00 Acute cystitis without hematuria (principal); G93.41 Metabolic encephalopathy; E87.1 Hypo-osmolality and hyponatremia; L97.929 Non-pressure chronic ulcer of unspecified part of left lower leg with unspecified severity; L97.919 Non-pressure chronic ulcer of unspecified part of right lower leg with unspecified severity; E11.65 Type 2 diabetes mellitus with hyperglycemia; E78.5 Hyperlipidemia, unspecified; I48.0 Paroxysmal atrial fibrillation; I10 Essential (primary) hypertension; E11.649 Type 2 diabetes mellitus with hypoglycemia without coma; B96.20 Unspecified Escherichia coli [E. coli] as the cause of diseases classified elsewhere; Z79.01 Long term (current) use of anticoagulants; Z95.3 Presence of xenogenic heart valve; I27.20 Pulmonary hypertension, unspecified; F41.9 Anxiety disorder, unspecified; F32.9 Major depressive disorder, single episode, unspecified; R29.6 Repeated falls; Z91.81 History of falling
CPT/HCPCS: 36415; 73502; 80048; 81001; 82947; 82962; 83735; 85025; 85027; 87086; 87088; 87186; 97162; 97166; 97802; 99283; J7030; A4216

== ENCOUNTER 2018-07-11 13:04 | Inpatient (IN) | payer MEDICARE, OTHER, SELFPAY ==
--- NOTE | 2018-07-11 14:51 | PCM.HP.STD ---
Problem List (1) Debility Status: Acute (2) Left hip pain Status: Acute (3) E. coli UTI Status: Acute (4) Uncontrolled diabetes mellitus Status: Chronic (5) Depression Status: Chronic (6) Anxiety Status: Chronic (7) Atrial fibrillation Status: Chronic (8) Overactive bladder Status: Chronic (9) Fall Status: Acute (10) Edema Status: Chronic Qualifiers: (11) Hyperlipidemia Status: Chronic Qualifiers: History of Present Illness Date of Admission: 07/11/18 Chief Complaint: Here for rehabilitation, strengthening, prior to discharge home alone. The patient is a 83 year old Female with below past medical history presented to [facility] Emergency Department 07/08/2018 with fall. 07/08/2018 X-ray left hip, pelvis NEGATIVE. Frequent falls, 2 falls day of presentation. Legs give out. Patient stopped statin, Naproxen think it may help leg weakness. CBCD okay, Glucose 551, Sodium 130. UA consistent with UTI. IV fluids given, urine culture sent. Rocephin given. Does not take diabetes medications as prescribed at home. Unable to ambulate. 07/08/2018 Admit to Hospital. IV fluids, Rocephin IV for UTI. PT/OT for debility. 07/09/2018 Glimepiride stopped due to risk of hypoglycemia. Long and short acting insulin started. Hyponatremia secondary to Hyperglycemia. 07/10/2018 Urine culture growing pansensitive E. Coli. Insulin adjusted due to hypoglycemia. Rocephin switched to Cipro. Patient debilitated, unable to go home. 07/11/2018 Admit to TCU with debility, here for rehabilitation, strengthening, prior to discharge home alone. Past Medical History Past Medical History (Chronic Problems): Chronic Problems (Last Updated 07/11/18 @ 08:02 by Paulo Davey MD) Uncontrolled diabetes mellitus (Chronic) Depression (Chronic) Anxiety (Chronic) Atrial fibrillation (Chronic) Overactive bladder (Chronic) Nonrheumatic mitral (valve) insufficiency (Chronic) Non-rheumatic tricuspid valve insufficiency (Chronic) HTN (hypertension) (Chronic) Anxiety and depression (Chronic) Ulcer of left lower extremity with fat layer exposed (Chronic) Venous insufficiency of both lower extremities (Chronic) Ulcer of right lower extremity with fat layer exposed (Chronic) Venous ulcers of both lower extremities (Chronic) Type 2 diabetes mellitus (Chronic) Paroxysmal atrial fibrillation (Chronic) Edema (Chronic) Dyspnea on exertion (Chronic) Shortness of breath (Chronic) History of aortic valve replacement with bioprosthetic valve (Chronic ~06/20/16) 23 mm Saint to trifecta GT valve in June 2016 at [facility]; Hyperlipidemia (Chronic) Pulmonary hypertension (Chronic) Medical History: Medical History (Last Updated 07/11/18 @ 08:02 by Paulo Davey MD) Pressure ulcer of left foot, stage 3 (Ruled-out) L89.893 Nonrheumatic mitral (valve) insufficiency (Chronic) I34.0 Non-rheumatic tricuspid valve insufficiency (Chronic) I36.1 HTN (hypertension) (Chronic) I10 Anxiety and depression (Chronic) F41.8 Ulcer of left lower extremity with fat layer exposed (Chronic) L97.922 Venous insufficiency of both lower extremities (Chronic) I87.2 Ulcer of right lower extremity with fat layer exposed (Chronic) L97.912 Venous ulcers of both lower extremities (Chronic) I87.2, L97.919, L97.929 Type 2 diabetes mellitus (Chronic) E11.9 Paroxysmal atrial fibrillation (Chronic) I48.0 Edema (Chronic) R60.9 Dyspnea on exertion (Chronic) R06.09 Shortness of breath (Chronic) R06.02 Hyperlipidemia (Chronic) E78.5 Pulmonary hypertension (Chronic) I27.2 Abnormal pulmonary function test R94.2 GERD (gastroesophageal reflux disease) K21.9 Hiatal hernia K44.9 Nonrheumatic aortic (valve) stenosis I35.0 Abnormal pulmonary function (Inactive) R94.2 Aortic stenosis (Inactive) I35.0 Atrial fibrillation and flutter (Inactive) I48.91, I48.92 Atrial fibrillation with RVR (Inactive) I48.91 DM2 (diabetes mellitus, type 2) (Inactive) E11.9 Diabetes mellitus (Inactive) E11.9 Mitral valve disorder (Inactive) I05.9 Allergies No Known Allergies Allergy (Verified 07/08/18 16:39) Home Medications: Ambulatory Orders Medication Instructions Recorded metformin 1,000 mg tablet 1,000 mg PO BIDCM 0 Days 03/15/18 aspirin 81 mg tablet,delayed 81 mg PO DAILY tab 04/24/18 release Apixaban [Eliquis] 5 mg PO BID 07/08/18 Atorvastatin Calcium 20 mg PO DAILY 07/08/18 Lisinopril [Zestril] 5 mg PO DAILY 07/08/18 Tolterodine Tartrate [Tolterodine 4 mg PO DAILY 07/08/18 Tartrate ER] Acetaminophen [Tylenol Tablet] 650 mg PO Q6H PRN PRN tablet 07/11/18 Ciprofloxacin [Cipro] 250 mg PO BID 07/11/18 Glucerna Shake 120 ml PO 4X/DAY 07/11/18 Insulin Glargine [Lantus SoloStar 10 units SC BREAKFAST 07/11/18 Pen] Insulin Lispro [Humalog KwikPen] See Protocol SC ACHS 07/11/18 Surgical History: Surgical History (Last Updated 06/27/18 @ 11:22 by Irina George) History of aortic valve replacement with bioprosthetic valve (Chronic) Onset Date: ~06/20/16 Z95.4 23 mm Saint to trifecta GT valve in June 2016 at [facility]; History of carpal tunnel surgery Z92.89 History of dilatation and curettage Z98.890 History of knee replacement procedure of left knee Z96.652 History of knee replacement procedure of right knee Z96.651 H/O aortic valve replacement (Inactive) Z95.2 06/20/2016 @ [facility] H/O aortic valve replacement (Inactive) Onset Date: ~06/20/16 Z95.2 Surgical History: dilatation and curettage, total knee arthroplasty - Bilateral., - - S/P AVR (Porcine valve), Carpal Tunnel Release Psychiatric History: Anxiety, Depression DATA LEAD History: No pertinent DATA LEAD history Lives: Alone Smoking Status: Never smoker Tobacco Use: Non-smoker Alcohol: None Drugs: None - *Family History Paternal Family History: Family History (Last Reviewed 06/27/18 @ 11:22 by Irina George) Father CAD (coronary artery disease) Mother CAD (coronary artery disease) History Items: Dementia, Heart Disease Maternal Family History: Family History (Last Reviewed 06/27/18 @ 11:22 by Irina George) Father CAD (coronary artery disease) Mother CAD (coronary artery disease) History Items: Heart Disease Review of Systems Constitutional: Denies: Chills, Fever, Weight Change HEENT: Denies: Head Aches, Sinus Congestion, Sinus Drainage Cardiovascular: Denies: Chest Pain, Palpitations Respiratory: Denies: Cough, Shortness of breath at rest, Sputum production Gastrointestinal: Denies: Abdominal Pain, Nausea, Vomiting Genitourinary: Denies: Dysuria Musculoskeletal: Denies: Joint Pain, Joint Tenderness Skin: Denies: Rash, Wounds Neurological: Denies: Numbness, Tingling, Focal weakness Psychiatric: Denies: Anxiety, Depression, Homicidal Ideations, Suicidal Ideations Hematologic/ Lymphatic: Denies: Easy Bruising, Easy Bleeding VTE Information - Inpt Only VTE Present on Admission: No VTE Mechan Device Prophylaxis: Knee High BRANDAN Hose VTE Pharm Prophylaxis ordered?: No Reason prophylaxis not ordered:: Treatment Not Indicated Patient Problems: Active and Suspected Problems (Last Updated 07/11/18 @ 08:02 by Paulo Davey MD) Debility (Acute) Left hip pain (Acute) E. coli UTI (Acute) - Physical Exam General: Alert, Oriented x3, Cooperative HEENT: Atraumatic, PERRLA, EOMI, Normocephalic Neck: Supple, No JVD, Negative Carotid Bruits Lungs: Clear to auscultation, Normal air movement Cardiovascular: Regular rate, No murmurs Abdomen: Bowel Sounds Present, Soft, Non Tender Extremities: No edema, Capillary Refill Less than 3 Seconds Skin: No rashes, No breakdown Musculoskeletal: No Tenderness to Palpation of Joints or Extremities Neurological: Cranial nerves II-XII grossly intact Psych/Mental Status: Normal Affect, Appropriate Body Mass Index (BMI) 25.0 Finger Stick Blood Glucose 394 Assessment/Plan All Active Problems (Last Updated 07/11/18 @ 08:02 by Paulo Davey MD) Debility (Acute) Left hip pain (Acute) E. coli UTI (Acute) Acute cystitis (Acute) E. coli infection (Acute) Fall (Acute) Weakness (Acute) Hyperglycemia (Acute) Pressure ulcer of left foot, stage 3 (Ruled-out) 83 year old female with below past medical history significant for non-compliance with medical regimen, admitted to hospital for fall/debility secondary to E. Coli UTI, admitted to TCU with debility, here for rehabilitation, strengthening, prior to discharge home alone. Debility - PT/OT. Pain - Tylenol 1000MG Q6H PRN mild pain. Bowel - Miralax 17GM daily, Senna/colace 1 tablet BID, Dulcolax 10MG daily PRN. Pneumonia vaccination - Administer Prevnar 13 and/or Pneumovax 23 as necessary. DVT prophylaxis - Not necessary, already on Eliquis. E. Coli UTI - Cipro 250MG BID thru 07/14/2018. Diabetes Mellitus II - Metformin 1000MG BID, Lantus 10 units daily, stop Humalog SSI. Coronary Artery Disease - Lisinopril 5MG daily, Aspirin 81MG daily. Atrial Fibrillation - Eliquis 5MG BID. Hyperlipidemia - Atorvastatin 20MG QHS. Overactive bladder - Tolterodine ER 4MG daily.
--- NOTE | 2018-07-11 14:58 | HP.PCM_ITS ---
Problem List (1) Debility Status: Acute (2) Left hip pain Status: Acute (3) E. coli UTI Status: Acute (4) Uncontrolled diabetes mellitus Status: Chronic (5) Depression Status: Chronic (6) Anxiety Status: Chronic (7) Atrial fibrillation Status: Chronic (8) Overactive bladder Status: Chronic (9) Fall Status: Acute (10) Edema Status: Chronic Qualifiers: (11) Hyperlipidemia Status: Chronic Qualifiers: History of Present Illness Date of Admission: 07/11/18 Chief Complaint: Here for rehabilitation, strengthening, prior to discharge home alone. The patient is a 83 year old Female with below past medical history presented to [facility] Emergency Department 07/08/2018 with fall. 07/08/2018 X-ray left hip, pelvis NEGATIVE. Frequent falls, 2 falls day of presentation. Legs give out. Patient stopped statin, Naproxen think it may help leg weakness. CBCD okay, Glucose 551, Sodium 130. UA consistent with UTI. IV fluids given, urine culture sent. Rocephin given. Does not take diabetes medications as prescribed at home. Unable to ambulate. 07/08/2018 Admit to Hospital. IV fluids, Rocephin IV for UTI. PT/OT for debility. 07/09/2018 Glimepiride stopped due to risk of hypoglycemia. Long and short acting insulin started. Hyponatremia secondary to Hyperglycemia. 07/10/2018 Urine culture growing pansensitive E. Coli. Insulin adjusted due to hypoglycemia. Rocephin switched to Cipro. Patient debilitated, unable to go home. 07/11/2018 Admit to TCU with debility, here for rehabilitation, strengthening, prior to discharge home alone. Past Medical History Past Medical History (Chronic Problems): Chronic Problems (Last Updated 07/11/18 @ 08:02 by Paulo Davey MD) Uncontrolled diabetes mellitus (Chronic) Depression (Chronic) Anxiety (Chronic) Atrial fibrillation (Chronic) Overactive bladder (Chronic) Nonrheumatic mitral (valve) insufficiency (Chronic) Non-rheumatic tricuspid valve insufficiency (Chronic) HTN (hypertension) (Chronic) Anxiety and depression (Chronic) Ulcer of left lower extremity with fat layer exposed (Chronic) Venous insufficiency of both lower extremities (Chronic) Ulcer of right lower extremity with fat layer exposed (Chronic) Venous ulcers of both lower extremities (Chronic) Type 2 diabetes mellitus (Chronic) Paroxysmal atrial fibrillation (Chronic) Edema (Chronic) Dyspnea on exertion (Chronic) Shortness of breath (Chronic) History of aortic valve replacement with bioprosthetic valve (Chronic ~06/20/16) 23 mm Saint to trifecta GT valve in June 2016 at [facility]; Hyperlipidemia (Chronic) Pulmonary hypertension (Chronic) Medical History: Medical History (Last Updated 07/11/18 @ 08:02 by Paulo Davey MD) Pressure ulcer of left foot, stage 3 (Ruled-out) L89.893 Nonrheumatic mitral (valve) insufficiency (Chronic) I34.0 Non-rheumatic tricuspid valve insufficiency (Chronic) I36.1 HTN (hypertension) (Chronic) I10 Anxiety and depression (Chronic) F41.8 Ulcer of left lower extremity with fat layer exposed (Chronic) L97.922 Venous insufficiency of both lower extremities (Chronic) I87.2 Ulcer of right lower extremity with fat layer exposed (Chronic) L97.912 Venous ulcers of both lower extremities (Chronic) I87.2, L97.919, L97.929 Type 2 diabetes mellitus (Chronic) E11.9 Paroxysmal atrial fibrillation (Chronic) I48.0 Edema (Chronic) R60.9 Dyspnea on exertion (Chronic) R06.09 Shortness of breath (Chronic) R06.02 Hyperlipidemia (Chronic) E78.5 Pulmonary hypertension (Chronic) I27.2 Abnormal pulmonary function test R94.2 GERD (gastroesophageal reflux disease) K21.9 Hiatal hernia K44.9 Nonrheumatic aortic (valve) stenosis I35.0 Abnormal pulmonary function (Inactive) R94.2 Aortic stenosis (Inactive) I35.0 Atrial fibrillation and flutter (Inactive) I48.91, I48.92 Atrial fibrillation with RVR (Inactive) I48.91 DM2 (diabetes mellitus, type 2) (Inactive) E11.9 Diabetes mellitus (Inactive) E11.9 Mitral valve disorder (Inactive) I05.9 Allergies No Known Allergies Allergy (Verified 07/08/18 16:39) Home Medications: Ambulatory Orders Medication Instructions Recorded metformin 1,000 mg tablet 1,000 mg PO BIDCM 0 Days 03/15/18 aspirin 81 mg tablet,delayed 81 mg PO DAILY tab 04/24/18 release Apixaban [Eliquis] 5 mg PO BID 07/08/18 Atorvastatin Calcium 20 mg PO DAILY 07/08/18 Lisinopril [Zestril] 5 mg PO DAILY 07/08/18 Tolterodine Tartrate [Tolterodine 4 mg PO DAILY 07/08/18 Tartrate ER] Acetaminophen [Tylenol Tablet] 650 mg PO Q6H PRN PRN tablet 07/11/18 Ciprofloxacin [Cipro] 250 mg PO BID 07/11/18 Glucerna Shake 120 ml PO 4X/DAY 07/11/18 Insulin Glargine [Lantus SoloStar 10 units SC BREAKFAST 07/11/18 Pen] Insulin Lispro [Humalog KwikPen] See Protocol SC ACHS 07/11/18 Surgical History: Surgical History (Last Updated 06/27/18 @ 11:22 by Irina George) History of aortic valve replacement with bioprosthetic valve (Chronic) Onset Date: ~06/20/16 Z95.4 23 mm Saint to trifecta GT valve in June 2016 at [facility]; History of carpal tunnel surgery Z92.89 History of dilatation and curettage Z98.890 History of knee replacement procedure of left knee Z96.652 History of knee replacement procedure of right knee Z96.651 H/O aortic valve replacement (Inactive) Z95.2 06/20/2016 @ [facility] H/O aortic valve replacement (Inactive) Onset Date: ~06/20/16 Z95.2 Surgical History: dilatation and curettage, total knee arthroplasty - Bilateral. , - - S/P AVR (Porcine valve), Carpal Tunnel Release Psychiatric History: Anxiety, Depression FLY TIER History: No pertinent FLY TIER history Lives: Alone Smoking Status: Never smoker Tobacco Use: Non-smoker Alcohol: None Drugs: None - *Family History Paternal Family History: Family History (Last Reviewed 06/27/18 @ 11:22 by Irina George) Father CAD (coronary artery disease) Mother CAD (coronary artery disease) History Items: Dementia, Heart Disease Maternal Family History: Family History (Last Reviewed 06/27/18 @ 11:22 by Irina George) Father CAD (coronary artery disease) Mother CAD (coronary artery disease) History Items: Heart Disease Review of Systems Constitutional: Denies: Chills, Fever, Weight Change HEENT: Denies: Head Aches, Sinus Congestion, Sinus Drainage Cardiovascular: Denies: Chest Pain, Palpitations Respiratory: Denies: Cough, Shortness of breath at rest, Sputum production Gastrointestinal: Denies: Abdominal Pain, Nausea, Vomiting Genitourinary: Denies: Dysuria Musculoskeletal: Denies: Joint Pain, Joint Tenderness Skin: Denies: Rash, Wounds Neurological: Denies: Numbness, Tingling, Focal weakness Psychiatric: Denies: Anxiety, Depression, Homicidal Ideations, Suicidal Ideations Hematologic/ Lymphatic: Denies: Easy Bruising, Easy Bleeding VTE Information - Inpt Only VTE Present on Admission: No VTE Mechan Device Prophylaxis: Knee High BRANDAN Hose VTE Pharm Prophylaxis ordered?: No Reason prophylaxis not ordered:: Treatment Not Indicated Patient Problems: Active and Suspected Problems (Last Updated 07/11/18 @ 08:02 by Paulo Davey MD) Debility (Acute) Left hip pain (Acute) E. coli UTI (Acute) - Physical Exam General: Alert, Oriented x3, Cooperative HEENT: Atraumatic, PERRLA, EOMI, Normocephalic Neck: Supple, No JVD, Negative Carotid Bruits Lungs: Clear to auscultation, Normal air movement Cardiovascular: Regular rate, No murmurs Abdomen: Bowel Sounds Present, Soft, Non Tender Extremities: No edema, Capillary Refill Less than 3 Seconds Skin: No rashes, No breakdown Musculoskeletal: No Tenderness to Palpation of Joints or Extremities Neurological: Cranial nerves II-XII grossly intact Psych/Mental Status: Normal Affect, Appropriate Body Mass Index (BMI) 25.0 Finger Stick Blood Glucose 394 Assessment/Plan All Active Problems (Last Updated 07/11/18 @ 08:02 by Paulo Davey MD) Debility (Acute) Left hip pain (Acute) E. coli UTI (Acute) Acute cystitis (Acute) E. coli infection (Acute) Fall (Acute) Weakness (Acute) Hyperglycemia (Acute) Pressure ulcer of left foot, stage 3 (Ruled-out) 83 year old female with below past medical history significant for non- compliance with medical regimen, admitted to hospital for fall/debility secondary to E. Coli UTI, admitted to TCU with debility, here for rehabilitation, strengthening, prior to discharge home alone. * Debility - PT/OT. * Pain - Tylenol 1000MG Q6H PRN mild pain. * Bowel - Miralax 17GM daily, Senna/colace 1 tablet BID, Dulcolax 10MG daily PRN. * Pneumonia vaccination - Administer Prevnar 13 and/or Pneumovax 23 as necessary. * DVT prophylaxis - Not necessary, already on Eliquis. * E. Coli UTI - Cipro 250MG BID thru 07/14/2018. * Diabetes Mellitus II - Metformin 1000MG BID, Lantus 10 units daily, stop Humalog SSI. * Coronary Artery Disease - Lisinopril 5MG daily, Aspirin 81MG daily. * Atrial Fibrillation - Eliquis 5MG BID. * Hyperlipidemia - Atorvastatin 20MG QHS. * Overactive bladder - Tolterodine ER 4MG daily.
[2018-07-11 15:23] VITALS: BP 106/55; PULSE 92; RESP 18; TEMP 37.2; O2SAT 92; BMI 28.7
--- NOTE | 2018-07-11 15:24 | NURSING ---
Patient admitted to room 4 from [facility] via wheelchair. Oriented to room and call light system explained.
[2018-07-11 15:44] VITALS: BP 119/82; PULSE 90; RESP 18; TEMP 37; O2SAT 92
[2018-07-11 17:06] LABS: Bedside Glucose 387 mg/dL (70-110)
[2018-07-11] MEDS: Ciprofloxacin 250 MG Tablet PO (17:42)
[2018-07-11] MEDS: metFORMIN HCl 1,000 MG Tablet 1000 MG PO (17:42)
[2018-07-11] MEDS: Senna/Docusate Sodium 1 Tablet PO (17:43)
[2018-07-11] MEDS: Insulin Lispro 100 UNIT/ML INSULN.PEN SC ×2 (17:43→22:44)
[2018-07-11] MEDS: APIXABAN 5 MG TABLET PO (17:43)
[2018-07-11] MEDS: Glucerna Shake 120 ML LIQUID PO ×2 (18:10→20:32)
[2018-07-11] MEDS: Menthol/Lanolin/Calamine/Znox 113 GM Tube 1 APPLIC TOPICAL (20:33)
[2018-07-11 21:31] LABS: Bedside Glucose 404 mg/dL (70-110)
[2018-07-12] MEDS: Glucerna Shake 120 ML LIQUID PO ×4 (04:12→21:58)
[2018-07-12] MEDS: Menthol/Lanolin/Calamine/Znox 113 GM Tube 1 APPLIC TOPICAL ×3 (04:12→21:57)
[2018-07-12] MEDS: Tolterodine Tartrate 4 MG CAP.SA PO (04:14)
[2018-07-12] MEDS: Lisinopril 5 MG Tablet PO (04:14)
[2018-07-12] MEDS: Senna/Docusate Sodium 1 Tablet PO ×2 (04:14→17:25)
[2018-07-12] MEDS: Ciprofloxacin 250 MG Tablet PO ×2 (04:14→17:25)
[2018-07-12] MEDS: Aspirin E.C. 81 MG Tablet PO (04:14)
[2018-07-12] MEDS: APIXABAN 5 MG TABLET PO ×2 (04:15→17:25)
[2018-07-12] MEDS: Nystatin Powder 15gm Bottle 1 APPLIC TOPICAL ×2 (04:19→17:25)
[2018-07-12 06:19] LABS: Basophil# 0.04 X10^3/uL; Basophil% 0.7 % (0-1); Eosinophil# 0.04 X10^3/uL; Eosinophils% 0.7 % (0-5); Hemoglobin 10.6 g/dl (12.0-15.0); Lymphocyte % 21.2 % (19-41); Mean Corp Hgb Conc 31.2 g/gl (32-36); Mean Corpuscular Hgb 27.5 pg (27.0-32.0); Mean Corpuscular Volume 88.3 fL (81-99); Monocyte# 0.61 X10^3/uL; Neutrophil # 3.98 X10^3/uL (2.7-7.7); Neutrophil % 64.9 % (47-70); POSITIVE COUNT YES; POSITIVE DIFFERENTIAL NO; POSITIVE MORPHOLOGY YES; Platelet Count 256 K/mm3 (150-450); RBC Distribution Width CV 15.4 % (11.6-14.6); RBC Distribution Width SD 48.8 fl (35.1-43.9); Red Blood Count 3.85 M/mm3 (4.2-5.4); White Blood Count 6.1 K/mm3 (4.4-11.0)
[2018-07-12 06:53] LABS: Anion Gap 9 (5-15); BUN 25 mg/dL (7-18); Chloride 101 mmol/L (98-107); Creatinine, Serum 0.83 mg/dL (0.55-1.02); EST Glomerular Filtration Rate 70 mL/min (>60); Est Glom Filt Rate - Afr Amer 85 mL/min (>60); Estimated Creatinine Clearance 40.11 ml/min; Glucose 340 mg/dL (74-106); Potassium 4.5 mmol/L (3.5-5.1); Sodium Level 135 mmol/L (136-145)
[2018-07-12 07:51] LABS: Bedside Glucose 331 mg/dL (70-110)
[2018-07-12] MEDS: metFORMIN HCl 1,000 MG Tablet 1000 MG PO ×2 (08:06→17:25)
[2018-07-12] MEDS: Insulin Lispro 100 UNIT/ML INSULN.PEN 7 UNIT SC (08:07)
[2018-07-12 10:00] VITALS: O2SAT 92
[2018-07-12] MEDS: Tuberculin,Purif.prot.deriv. 50 TU/ML Vial 5 ML ID (10:44)
[2018-07-12 11:36] LABS: Bedside Glucose 359 mg/dL (70-110)
[2018-07-12] MEDS: Insulin Lispro 100 UNIT/ML INSULN.PEN 10 UNIT SC (12:00)
[2018-07-12 15:10] VITALS: BP 100/41; PULSE 90; RESP 18; TEMP 36.8; O2SAT 92
[2018-07-12 16:55] LABS: Bedside Glucose 378 mg/dL (70-110)
[2018-07-12] MEDS: Insulin Lispro 100 UNIT/ML INSULN.PEN 13 UNIT SC (18:04)
[2018-07-12 21:10] LABS: Bedside Glucose 261 mg/dL (70-110)
[2018-07-12] MEDS: Atorvastatin Calcium 20 MG Tablet PO (21:58)
[2018-07-13] MEDS: Menthol/Lanolin/Calamine/Znox 113 GM Tube 1 APPLIC TOPICAL ×3 (05:38→21:00)
[2018-07-13] MEDS: Glucerna Shake 120 ML LIQUID PO ×3 (05:38→20:57)
[2018-07-13] MEDS: Aspirin E.C. 81 MG Tablet PO (05:38)
[2018-07-13] MEDS: Ciprofloxacin 250 MG Tablet PO ×2 (05:38→17:29)
[2018-07-13] MEDS: Nystatin Powder 15gm Bottle 1 APPLIC TOPICAL ×2 (05:39→20:58)
[2018-07-13] MEDS: Tolterodine Tartrate 4 MG CAP.SA PO (05:39)
[2018-07-13] MEDS: APIXABAN 5 MG TABLET PO ×2 (05:39→17:29)
[2018-07-13] MEDS: Lisinopril 5 MG Tablet PO (05:40)
[2018-07-13] MEDS: Senna/Docusate Sodium 1 Tablet PO (05:40)
[2018-07-13 07:00] LABS: Bedside Glucose 167 mg/dL (70-110)
[2018-07-13] MEDS: metFORMIN HCl 1,000 MG Tablet 1000 MG PO ×2 (07:55→17:29)
[2018-07-13] MEDS: Insulin Lispro 100 UNIT/ML INSULN.PEN 13 UNIT SC (08:00)
[2018-07-13] MEDS: Acetaminophen 500 MG Tablet 1000 MG PO (08:01)
[2018-07-13 10:00] VITALS: PULSE 87; RESP 18; O2SAT 91
[2018-07-13 11:21] LABS: Bedside Glucose 89 mg/dL (70-110)
[2018-07-13] MEDS: Insulin Lispro 100 UNIT/ML INSULN.PEN 7 UNIT SC ×2 (12:56→17:36)
[2018-07-13 13:16] LABS: Bedside Glucose 134 mg/dL (70-110)
[2018-07-13 16:00] VITALS: BP 97/41; PULSE 74; RESP 14; TEMP 36.7; O2SAT 100
[2018-07-13 16:46] LABS: Bedside Glucose 191 mg/dL (70-110)
[2018-07-13] MEDS: Atorvastatin Calcium 20 MG Tablet PO (20:58)
[2018-07-13 21:05] LABS: Bedside Glucose 166 mg/dL (70-110)
[2018-07-14] MEDS: Polyethylene Glycol 3350 17 GM PACKET PO (06:09)
[2018-07-14] MEDS: Lisinopril 5 MG Tablet PO (06:09)
[2018-07-14] MEDS: Aspirin E.C. 81 MG Tablet PO (06:09)
[2018-07-14] MEDS: Tolterodine Tartrate 4 MG CAP.SA PO (06:09)
[2018-07-14] MEDS: Senna/Docusate Sodium 1 Tablet PO ×2 (06:09→17:59)
[2018-07-14] MEDS: Ciprofloxacin 250 MG Tablet PO ×2 (06:10→17:59)
[2018-07-14] MEDS: APIXABAN 5 MG TABLET PO ×2 (06:10→17:59)
[2018-07-14] MEDS: Menthol/Lanolin/Calamine/Znox 113 GM Tube 1 APPLIC TOPICAL ×3 (06:12→20:42)
[2018-07-14] MEDS: Nystatin Powder 15gm Bottle 1 APPLIC TOPICAL ×2 (06:12→20:40)
[2018-07-14] MEDS: Glucerna Shake 120 ML LIQUID PO ×3 (06:43→17:38)
[2018-07-14 06:45] LABS: Bedside Glucose 102 mg/dL (70-110)
[2018-07-14] MEDS: Acetaminophen 500 MG Tablet 1000 MG PO (08:31)
[2018-07-14] MEDS: metFORMIN HCl 1,000 MG Tablet 1000 MG PO ×2 (08:32→17:59)
[2018-07-14] MEDS: Insulin Lispro 100 UNIT/ML INSULN.PEN 7 UNIT SC ×3 (08:34→18:02)
[2018-07-14 10:30] VITALS: PULSE 77; RESP 18; O2SAT 99
[2018-07-14 11:20] LABS: Bedside Glucose 270 mg/dL (70-110)
--- NOTE | 2018-07-14 11:20 | PHA.CONS_ITS ---
<Evan Santana D - Last Filed: 07/14/18 11:14> Progress Note - Pharmacy Subjective: TCU Admission Objective: Allergies No Known Allergies Allergy (Verified 07/08/18 16:39) Current Medications Generic Name Dose Route Start Last Admin Trade Name Freq PRN Reason Stop Dose Admin Acetaminophen 1,000 mg 07/11/18 15:05 07/14/18 08:31 Tylenol PO 1,000 mg Q6H PRN PRN Administration MILD PAIN (1-3/10) Apixaban 5 mg 07/11/18 18:00 07/14/18 06:10 Eliquis PO 5 mg BID DONNIE Administration Aspirin 81 mg 07/12/18 06:00 07/14/18 06:09 Ecotrin PO 81 mg DAILY DONNIE Administration Atorvastatin Calcium 20 mg 07/12/18 22:00 07/13/18 20:58 Lipitor PO 20 mg QHS DONNIE Administration Bisacodyl 10 mg 07/11/18 15:06 Dulcolax PO DAILY PRN PRN Constipation Calamine/Phenol 1 applic 07/12/18 14:00 07/14/18 06:12 Calmoseptine Ointment TOPICAL 1 applicatio TID DONNIE Administration Protocol Ciprofloxacin HCl 250 mg 07/11/18 18:00 07/14/18 06:10 Cipro PO 07/14/18 18:00 250 mg BID DONNIE Administration Emollient Ointment 1 applic 07/12/18 06:00 07/14/18 06:11 Eucerin Intensive Repair TOPICAL 1 applicatio BID DONNIE Administration Protocol Insulin Glargine 10 units 07/13/18 16:30 07/14/18 06:47 Lantus ([facility]) SC 10 units BIDAC DONNIE Administration Insulin Human Lispro 7 unit 07/14/18 07:45 07/14/18 08:34 Humalog Kwikpen ([facility]) SC 7 u TIDCM DONNIE Administration Lisinopril 5 mg 07/12/18 06:00 07/14/18 06:09 Zestril PO 5 mg DAILY DONNIE Administration Metformin HCl 1,000 mg 07/11/18 17:00 07/14/18 08:32 Glucophage PO 1,000 mg BIDCM DONNIE Administration Nutritional Formula 1 packet 07/11/18 17:00 07/14/18 08:32 Fer - [place] Flavor PO 1 packet BIDCM DONNIE Administration Nutritional Formula (Lactose Free) 120 ml 07/11/18 17:00 07/14/18 06:43 Glucerna Shake PO 120 ml 4X/DAY DONNIE Administration Nystatin 1 applic 07/13/18 22:00 07/14/18 06:12 Mycostatin Powder TOPICAL 1 applicatio 0600,2200 DONNIE Administration Protocol Polyethylene Glycol 17 gm 07/12/18 06:00 07/14/18 06:09 Miralax PO 17 gm DAILY DONNIE Administration Senna/Docusate Sodium 1 tablet 07/11/18 18:00 07/14/18 06:09 Senokot-S, Jessie-Colace PO 1 tablet BID DONNIE Administration Tolterodine Tartrate 4 mg 07/12/18 06:00 07/14/18 06:09 Detrol La PO 4 mg DAILY DONNIE Administration Tuberculin PPD 5 tu 07/19/18 10:00 Tubersol, Aplisol, Ppd ID 07/19/18 10:01 X1 ONE Problem List (Last Updated 07/11/18 @ 08:02 by Paulo Davey MD) Debility (Acute) Left hip pain (Acute) E. coli UTI (Acute) Uncontrolled diabetes mellitus (Chronic) Depression (Chronic) Anxiety (Chronic) Atrial fibrillation (Chronic) Overactive bladder (Chronic) Vital Signs Temp Pulse Resp BP Pulse Ox 98.1 F 74 14 97/41 L 100 07/13/18 16:00 07/13/18 16:00 07/13/18 16:00 07/13/18 16:00 07/13/18 16:00 Oxygen Delivery Method Room Air Weight: 68.946 kg Body Mass Index (BMI) 28.7 Finger Stick Blood Glucose 394 Sodium 135 mmol/L (136-145) L 07/12/18 05:18 Potassium 4.5 mmol/L (3.5-5.1) 07/12/18 05:18 Chloride 101 mmol/L (98-107) 07/12/18 05:18 Carbon Dioxide 25.0 mmol/L (21.0-32.0) 07/12/18 05:18 Anion Gap 9 (5-15) 07/12/18 05:18 BUN 25 mg/dL (7-18) H 07/12/18 05:18 Creatinine 0.83 mg/dL (0.55-1.02) 07/12/18 05:18 Est GFR (MDRD) Af Amer 85 mL/min (>60) 07/12/18 05:18 Est GFR (MDRD) Non-Af 70 mL/min (>60) 07/12/18 05:18 BUN/Creatinine Ratio 30.0 RATIO (10-20) H 07/12/18 05:18 Glucose 340 mg/dL (74-106) H 07/12/18 05:18 Assessment/Plan: 1) Pain APAP for mild pain. Continue to monitor daily pain scores, prn medication use. 2) CAD Lisinopril, ASA, atorvastatin. Continue to monitor BP/HR, renal function, electrolytes, lipids, for chest pain. 3) DM2 Insulin glargine, lispro, metformin. Continue to monitor BGT, renal function, s/s hyper/hypoglycemia. 4) ID Ciprofloxacin until 07/14. Continue to monitor s/s infection. 5) Nutrition Glucerna, Fer. Continue to monitor clinically. Psychotropic Medications: None Unnecessary Medications: None Bowel Regimen: 6) Senna/s, PEG, prn bisacodyl. Continue to monitor prn medication use, for constipation/diarrhea. Date of Note:: 07/14/18 - Provider Comments Provider responsibility: Provider responsible to enter orders to implement recommendations <Donnell Callahan Chi - Last Filed: 07/14/18 15:58> Progress Note - Pharmacy Subjective: [] Objective: Allergies No Known Allergies Allergy (Verified 07/08/18 16:39) Current Medications Generic Name Dose Route Start Last Admin Trade Name Freq PRN Reason Stop Dose Admin Acetaminophen 1,000 mg 07/11/18 15:05 07/14/18 08:31 Tylenol PO 1,000 mg Q6H PRN PRN Administration MILD PAIN (1-3/10) Apixaban 5 mg 07/11/18 18:00 07/14/18 06:10 Eliquis PO 5 mg BID DONNIE Administration Aspirin 81 mg 07/12/18 06:00 07/14/18 06:09 Ecotrin PO 81 mg DAILY DONNIE Administration Atorvastatin Calcium 20 mg 07/12/18 22:00 07/13/18 20:58 Lipitor PO 20 mg QHS DONNIE Administration Bisacodyl 10 mg 07/11/18 15:06 Dulcolax PO DAILY PRN PRN Constipation Calamine/Phenol 1 applic 07/12/18 14:00 07/14/18 13:11 Calmoseptine Ointment TOPICAL 1 applicatio TID DONNIE Administration Protocol Ciprofloxacin HCl 250 mg 07/11/18 18:00 07/14/18 06:10 Cipro PO 07/14/18 18:00 250 mg BID DONNIE Administration Emollient Ointment 1 applic 07/12/18 06:00 07/14/18 06:11 Eucerin Intensive Repair TOPICAL 1 applicatio BID DONNIE Administration Protocol Insulin Glargine 10 units 07/13/18 16:30 07/14/18 06:47 Lantus ([facility]) SC 10 units BIDAC DONNIE Administration Insulin Human Lispro 7 unit 07/14/18 07:45 07/14/18 11:54 Humalog Kwikpen ([facility]) SC 7 u TIDCM DONNIE Administration Lisinopril 5 mg 07/12/18 06:00 07/14/18 06:09 Zestril PO 5 mg DAILY DONNIE Administration Metformin HCl 1,000 mg 07/11/18 17:00 07/14/18 08:32 Glucophage PO 1,000 mg BIDCM DONNIE Administration Nutritional Formula 1 packet 07/11/18 17:00 07/14/18 08:32 Fer - [place] Flavor PO 1 packet BIDCM DONNIE Administration Nutritional Formula (Lactose Free) 120 ml 07/11/18 17:00 07/14/18 11:53 Glucerna Shake PO 120 ml 4X/DAY DONNIE Administration Nystatin 1 applic 07/13/18 22:00 07/14/18 06:12 Mycostatin Powder TOPICAL 1 applicatio 0600,2200 DONNIE Administration Protocol Polyethylene Glycol 17 gm 07/12/18 06:00 07/14/18 06:09 Miralax PO 17 gm DAILY DONNIE Administration Senna/Docusate Sodium 1 tablet 07/11/18 18:00 07/14/18 06:09 Senokot-S, Jessie-Colace PO 1 tablet BID DONNIE Administration Tolterodine Tartrate 4 mg 07/12/18 06:00 07/14/18 06:09 Detrol La PO 4 mg DAILY DONNIE Administration Tuberculin PPD 5 tu 07/19/18 10:00 Tubersol, Aplisol, Ppd ID 07/19/18 10:01 X1 ONE Problem List (Last Updated 07/11/18 @ 08:02 by Paulo Davey MD) Debility (Acute) Left hip pain (Acute) E. coli UTI (Acute) Uncontrolled diabetes mellitus (Chronic) Depression (Chronic) Anxiety (Chronic) Atrial fibrillation (Chronic) Overactive bladder (Chronic) Vital Signs Temp Pulse Resp BP Pulse Ox 97.0 F L 90 18 99/58 L 100 07/14/18 15:44 07/14/18 15:44 07/14/18 15:44 07/14/18 15:44 07/14/18 15:44 Oxygen Delivery Method Room Air Weight: 68.946 kg Body Mass Index (BMI) 28.7 Finger Stick Blood Glucose 394 Sodium 135 mmol/L (136-145) L 07/12/18 05:18 Potassium 4.5 mmol/L (3.5-5.1) 07/12/18 05:18 Chloride 101 mmol/L (98-107) 07/12/18 05:18 Carbon Dioxide 25.0 mmol/L (21.0-32.0) 07/12/18 05:18 Anion Gap 9 (5-15) 07/12/18 05:18 BUN 25 mg/dL (7-18) H 07/12/18 05:18 Creatinine 0.83 mg/dL (0.55-1.02) 07/12/18 05:18 Est GFR (MDRD) Af Amer 85 mL/min (>60) 07/12/18 05:18 Est GFR (MDRD) Non-Af 70 mL/min (>60) 07/12/18 05:18 BUN/Creatinine Ratio 30.0 RATIO (10-20) H 07/12/18 05:18 Glucose 340 mg/dL (74-106) H 07/12/18 05:18 Assessment/Plan: Psychotropic Medications: Unnecessary Medications: Bowel Regimen: - Provider Comments Provider responsibility: Provider responsible to enter orders to implement recommendations Provider Comments to Recommendations by Pharmacy: Agree
--- NOTE | 2018-07-14 15:40 | NURSING ---
OK PER ROSARIO FRIEDMAN NOT TO REAPPLY MEPILEX TO PT BOTTOM. CALMOSEPTINE AND Q2 TURNS CONTINUE.
[2018-07-14 15:44] VITALS: BP 99/58; PULSE 90; RESP 18; TEMP 36.1; O2SAT 100
[2018-07-14 17:00] LABS: Bedside Glucose 145 mg/dL (70-110)
--- NOTE | 2018-07-14 18:08 | NURSING ---
Dr. West in to see pt, dressings changed at this time
--- NOTE | 2018-07-14 18:16 | CON.PCM_ITS ---
Problem List (1) Tinea unguium Status: Chronic (2) Type 2 diabetes mellitus with diabetic polyneuropathy Status: Chronic (3) Localized edema Status: Chronic (4) Ulcer of right lower extremity with fat layer exposed Status: Chronic (5) Ulcer of left lower extremity with fat layer exposed Status: Chronic (6) Chronic ulcer of left foot with fat layer exposed Status: Chronic (7) Hallux valgus (acquired), right foot Status: Chronic (8) Peripheral vascular disease Status: Suspected Reason for Consult Date of Consultation: 07/14/18 Reason for Consultation: Painful toenails. Leg ulcers and swelling. Painful right bunion. Left foot ulcer History of Present Illness: The patient is a 83 year old F seen bedside for multiple podiatric conditions. She was admitted to the transitional care unit for rehabilitation secondary to ongoing deconditioning and falls at home. She is also being treated for urinary tract infection. I evaluated her bedside for long thick toenails that are painful and she is unable to safely trim these on her own. She asked for help extremities at this time. She also has ulcers to both extremities and she reports the onset was approximately 3 weeks ago. She denies self wound care and relates she was previously seen at the wound care center. She denies redness odor or known trauma. She also reports her right bunion has been rubbing and is recently irritated and mildly bothersome. She denies claudication and reports she was previously ambulating at home. She is in a wheelchair today. She does have some paresthesias to lower extremities however this is not occurring all the time. Past Medical History Past Medical History (Chronic Problems): Chronic Problems (Last Updated 07/11/18 @ 08:02 by Paulo Davey MD) Uncontrolled diabetes mellitus (Chronic) Depression (Chronic) Anxiety (Chronic) Atrial fibrillation (Chronic) Overactive bladder (Chronic) Tinea unguium (Chronic) Type 2 diabetes mellitus with diabetic polyneuropathy (Chronic) Localized edema (Chronic) Ulcer of right lower extremity with fat layer exposed (Chronic) Ulcer of left lower extremity with fat layer exposed (Chronic) Chronic ulcer of left foot with fat layer exposed (Chronic) Hallux valgus (acquired), right foot (Chronic) Nonrheumatic mitral (valve) insufficiency (Chronic) Non-rheumatic tricuspid valve insufficiency (Chronic) HTN (hypertension) (Chronic) Anxiety and depression (Chronic) Ulcer of left lower extremity with fat layer exposed (Chronic) Venous insufficiency of both lower extremities (Chronic) Ulcer of right lower extremity with fat layer exposed (Chronic) Venous ulcers of both lower extremities (Chronic) Type 2 diabetes mellitus (Chronic) Paroxysmal atrial fibrillation (Chronic) Edema (Chronic) Dyspnea on exertion (Chronic) Shortness of breath (Chronic) History of aortic valve replacement with bioprosthetic valve (Chronic ~06/20/16) 23 mm Saint to trifecta GT valve in June 2016 at [facility]; Hyperlipidemia (Chronic) Pulmonary hypertension (Chronic) Medical History: Medical History (Last Updated 07/11/18 @ 08:02 by Paulo Davey MD) Pressure ulcer of left foot, stage 3 (Ruled-out) L89.893 Nonrheumatic mitral (valve) insufficiency (Chronic) I34.0 Non-rheumatic tricuspid valve insufficiency (Chronic) I36.1 HTN (hypertension) (Chronic) I10 Anxiety and depression (Chronic) F41.8 Ulcer of left lower extremity with fat layer exposed (Chronic) L97.922 Venous insufficiency of both lower extremities (Chronic) I87.2 Ulcer of right lower extremity with fat layer exposed (Chronic) L97.912 Venous ulcers of both lower extremities (Chronic) I87.2, L97.919, L97.929 Type 2 diabetes mellitus (Chronic) E11.9 Paroxysmal atrial fibrillation (Chronic) I48.0 Edema (Chronic) R60.9 Dyspnea on exertion (Chronic) R06.09 Shortness of breath (Chronic) R06.02 Hyperlipidemia (Chronic) E78.5 Pulmonary hypertension (Chronic) I27.2 Abnormal pulmonary function test R94.2 GERD (gastroesophageal reflux disease) K21.9 Hiatal hernia K44.9 Nonrheumatic aortic (valve) stenosis I35.0 Abnormal pulmonary function (Inactive) R94.2 Aortic stenosis (Inactive) I35.0 Atrial fibrillation and flutter (Inactive) I48.91, I48.92 Atrial fibrillation with RVR (Inactive) I48.91 DM2 (diabetes mellitus, type 2) (Inactive) E11.9 Diabetes mellitus (Inactive) E11.9 Mitral valve disorder (Inactive) I05.9 Allergies No Known Allergies Allergy (Verified 07/08/18 16:39) Home Medications: Ambulatory Orders Medication Instructions Recorded metformin 1,000 mg tablet 1,000 mg PO BIDCM 0 Days 03/15/18 aspirin 81 mg tablet,delayed 81 mg PO DAILY tab 04/24/18 release Apixaban [Eliquis] 5 mg PO BID 07/08/18 Atorvastatin Calcium 20 mg PO DAILY 07/08/18 Lisinopril [Zestril] 5 mg PO DAILY 07/08/18 Tolterodine Tartrate [Tolterodine 4 mg PO DAILY 07/08/18 Tartrate ER] Acetaminophen [Tylenol Tablet] 650 mg PO Q6H PRN PRN tablet 07/11/18 Ciprofloxacin [Cipro] 250 mg PO BID 07/11/18 Glucerna Shake 120 ml PO 4X/DAY 07/11/18 Insulin Glargine [Lantus SoloStar 10 units SC BREAKFAST 07/11/18 Pen] Insulin Lispro [Humalog KwikPen] See Protocol TX ACHS 07/11/18 Surgical History: Surgical History (Last Updated 06/27/18 @ 11:22 by Irina George) History of aortic valve replacement with bioprosthetic valve (Chronic) Onset Date: ~06/20/16 Z95.4 23 mm Saint to trifecta GT valve in June 2016 at [facility]; History of carpal tunnel surgery Z92.89 History of dilatation and curettage Z98.890 History of knee replacement procedure of left knee Z96.652 History of knee replacement procedure of right knee Z96.651 H/O aortic valve replacement (Inactive) Z95.2 06/20/2016 @ [facility] H/O aortic valve replacement (Inactive) Onset Date: ~06/20/16 Z95.2 Surgical History: dilatation and curettage, total knee arthroplasty - Bilateral., - - S/P AVR (Porcine valve), Carpal Tunnel Release Psychiatric History: Anxiety, Depression 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: No pertinent CREATIVE PRODUCER history Lives: Alone Smoking Status: Never smoker Tobacco Use: Non-smoker Alcohol: None Drugs: None - *Family History Paternal Family History: Family History (Last Reviewed 06/27/18 @ 11:22 by Irina George) Father CAD (coronary artery disease) Mother CAD (coronary artery disease) History Items: Dementia, Heart Disease Maternal Family History: Family History (Last Reviewed 06/27/18 @ 11:22 by Irina George) Father CAD (coronary artery disease) Mother CAD (coronary artery disease) History Items: Heart Disease Review of Systems Constitutional: Reports: Weakness, Fatigue. Denies: Chills, Fever Cardiovascular: Denies: Chest Pain, Claudication Respiratory: Denies: Shortness of Breath Gastrointestinal: Denies: Nausea Genitourinary: Reports: Incontinence Musculoskeletal: Reports: Foot Pain. Denies: Leg Pain Skin: Reports: Skin Changes, Wounds Neurological: Reports: Balance problems, Incoordination, Numbness Patient Problems: Active and Suspected Problems (Last Updated 07/11/18 @ 08:02 by Paulo Davey MD) Debility (Acute) Left hip pain (Acute) E. coli UTI (Acute) Peripheral vascular disease (Suspected) - Physical Exam General: Alert, Oriented x3, Cooperative HEENT: Atraumatic Extremities: No clubbing, No cyanosis, Capillary Refill Less than 3 Seconds - All toes bilateral, No Calf Tenderness - Negative Jalil and Britt sign bilateral, Diminished Peripheral Pulses, Edema - Lateral lower extremities moderate with telangiectasias and varicosities Skin: Ulcer/ Wound - Medial left leg, medial right leg, dorsal left hallux ulcers are fibrous granular and with interspersed varus eschar tissue noted. There does not appear to be deep tissue exposure, erythema, streaking, purulence, odor bilateral. There is no interdigital maceration bilateral., - - The peripheral skin is hairless and atrophic bilateral. The toenails 1, 2, 3, 4, 5 are elongated, thick, and dystrophic with subungual debris bilateral. There is pain to compress particularly the right hallux toenail which is more d ystrophic in comparison to the others. Musculoskeletal: No Tenderness to Palpation of Joints or Extremities, Muscle Wasting, Tenderness - Mild tenderness with also manipulation and code L compression, - - Active range of motion all digits bilateral. There is very mild lateral hallux deviation with prominent first metatarsal head on the right. No distinct pain to palpation to the sesamoid apparatus or with passive range of motion of the first metatarsophalangeal joint. No joint effusion noted to this site either. Compartments remain soft on palpation bilateral lower extremities Neurological: Sensory exam intact to light touch and pain - Bilateral lower extremities Psych/Mental Status: Normal Affect, Appropriate Vital Signs Temp Pulse Resp BP Pulse Ox 97.0 F L 90 18 99/58 L 100 07/14/18 15:44 07/14/18 15:44 07/14/18 15:44 07/14/18 15:44 07/14/18 15:44 Oxygen Delivery Method Room Air Weight: 68.946 kg Body Mass Index (BMI) 28.7 Finger Stick Blood Glucose 394 Intake and Output for Last 24 Hours 07/12/18 07/13/18 07/14/18 23:59 23:59 23:59 Intake Total 1760 / 1760 1620 / 1620 1230 / 1230 Output Total 300 / 300 Balance 1460 / 1460 1620 / 1620 1230 / 1230 POC Glucose 07/14/18 07/14/18 07/14/18 16:58 11:13 06:23 POC Glucose 145 H 270 H 102 07/13/18 20:55 POC Glucose 166 H Assessment/Plan All Active Problems (Last Updated 07/11/18 @ 08:02 by Paulo Davey MD) Debility (Acute) Left hip pain (Acute) E. coli UTI (Acute) Acute cystitis (Acute) E. coli infection (Acute) Fall (Acute) Weakness (Acute) Hyperglycemia (Acute) Pressure ulcer of left foot, stage 3 (Ruled-out) Bilateral leg ulcers with fat layer exposed, no infection Venous insufficiency bilateral lower extremities Small vessel disease Tinea unguium with pain bilateral 1, 2, 3, 4, 5 Delayed healing Uncontrolled diabetes with neuropathy Malnutrition suspected Fall risk Other comorbidities I reviewed and discussed her case this evening. I reviewed her diagnostic data including her venous and arterial studies from January 2018. She does appear to have bilateral lower extremity incompetent veins. Her right ankle-brachial index is 1.47 and left is 1.26. She does have some diminished toe brachial indices. The waveforms are by and triphasic at the ankle level and she appears to have gross perfusion to the ankle level. Her vitals remained stable and she does not have any leukocytosis at this time. It is noted she has recently seen Dr. De Santiago at the wound healing center in her notes were reviewed. I recommend altering her dressing care to collagenase. Subcutaneous excisional debridement will also be performed during her next visit now that I have had the opportunity to review her previous vascular studies and this is appropriate at this time. To elevate limbs at rest and avoid idle standing or sitting. To continue with compression dressing Tommie wrap. Her ulcer sites were redressed this evening. She was reassured she does not have any local signs of infection. If continued lack of healing is noted an outpatient referral to vascular surgery will be considered. I do recommend continue nutritional supplementation to optimize healing. It is noted she is on Glucerna at this time and I recommend Fer which contains collagen protein and amino acids that are favorable for wound healing. She was educated that the abnormal toenail findings may be secondary to nail fungus or microtrauma. I offered to debride and trim her toenails and will return tomorrow with the proper instrumentation. She was reassured no ulcer or infections are noted on the toes with the exception the aforementioned left dorsal toe ulcer site. To continue with shoes that do not pressure on her uncomfortable toenail or bunion site. I recommend extra-depth diabetic shoes with dual density liners upon ulcer healing and I can help arrange this in the outpatient setting. Medical management and DVT prophylaxis per primary team is appreciated. To continue with rehabilitation for deconditioning prevention. It is noted her hemoglobin A1c was 13.6% and continue glycemic control is imperative for ulcer healing. I answered all of her questions and will continue to follow her while in house. Lilli West DPM, [facility] [phone]
[2018-07-14] MEDS: Atorvastatin Calcium 20 MG Tablet PO (20:41)
[2018-07-14 21:26] LABS: Bedside Glucose 232 mg/dL (70-110)
[2018-07-15] MEDS: Menthol/Lanolin/Calamine/Znox 113 GM Tube 1 APPLIC TOPICAL ×3 (05:12→20:06)
[2018-07-15] MEDS: Nystatin Powder 15gm Bottle 1 APPLIC TOPICAL ×2 (05:13→20:05)
[2018-07-15] MEDS: Tolterodine Tartrate 4 MG CAP.SA PO (05:34)
[2018-07-15] MEDS: Lisinopril 5 MG Tablet PO (05:34)
[2018-07-15] MEDS: Senna/Docusate Sodium 1 Tablet PO ×2 (05:34→17:31)
[2018-07-15] MEDS: APIXABAN 5 MG TABLET PO ×2 (05:34→17:45)
[2018-07-15] MEDS: Aspirin E.C. 81 MG Tablet PO (05:34)
[2018-07-15] MEDS: Polyethylene Glycol 3350 17 GM PACKET PO (05:35)
[2018-07-15] MEDS: Collagenase 30gm Tube 1 APPLIC TOPICAL (05:37)
[2018-07-15 06:51] LABS: Bedside Glucose 186 mg/dL (70-110)
[2018-07-15] MEDS: metFORMIN HCl 1,000 MG Tablet 1000 MG PO ×2 (08:18→17:31)
[2018-07-15] MEDS: Insulin Lispro 100 UNIT/ML INSULN.PEN 7 UNIT SC ×3 (08:18→17:38)
[2018-07-15 10:53] LABS: Pathologist Review Reviewed
[2018-07-15 11:26] LABS: Bedside Glucose 280 mg/dL (70-110)
--- NOTE | 2018-07-15 12:20 | PN_ITS ---
Patient Problems: Active and Suspected Problems (Last Updated 07/11/18 @ 08:02 by Paulo Davey MD) Debility (Acute) Left hip pain (Acute) E. coli UTI (Acute) Peripheral vascular disease (Suspected) Subjective: This 83-year-old female with diabetic neuropathy was seen bedside today for follow-up of ulcer care, continued right great toe pain by her toenail, and for help trimming her long thick toenails that she does not feel safe performing on her own. She denies fever, chill, nausea, vomiting. She denies new injuries. She denies drainage to her right toe however the discoloration continues. She is unable to wear shoe. - Physical Exam General: Alert, Oriented x3, Cooperative Extremities: No cyanosis, Capillary Refill Less than 3 Seconds - all digits bilateral, No Calf Tenderness - Negative Jalil and Britt sign bilateral, Diminished Peripheral Pulses, Edema - bilateral lower extremities with varicosities Skin: Ulcer/ Wound - Right leg pre-debridement 1.4 x 0.7 x 0.1 cm and post debridement 1.5 x 0.8 x 0.1 cm. Left leg pre-debridement 1.9 x 0.7 x 0.1 cm and post debridement 2.0 x 0.8 x 0.1 cm. Left dorsal hallux pre-debridement 0.4 x 0.7 x 0.1 cm and post debridement 0.5 x 0.8 x 0.1 cm. Left medial plantar foot pre-debridement 0.9 x 0.5 x 0.1 cm and post debridement 1.0 x 0.6 x 0.1 cm. Post debridement and nail debridement measurement of right hallux is 1.5 x 1.5 x 0.1 cm. All ulcer sites are fibrous and granular without eschar or deep tissue exposed. Upon right hallux nail removal there is sero-purulent drainage with periwound inflammation noted. No probe to bone or joint noted at the site. There is no fluctuance on palpation, - - No interdigital maceration bilateral. The peripheral skin is hairless and atrophic bilateral Musculoskeletal: No Tenderness to Palpation of Joints or Extremities, Muscle Wasting - Pain on palpation to hallux nail removal and debridement site right foot.toenails long, thick , dystrophic with subungual debris and pain on palpation bilateral 1,2,3,4,5., - - Compartments of bilateral lower extremities remain soft. Active range of motion of all toes noted bilateral Neurological: - - Lack of epicritic sensation to light touch to bilateral feet consistent with neuropathy status Psych/Mental Status: Normal Affect, Appropriate Vital Signs Temp Pulse Resp BP Pulse Ox 97.0 F L 90 18 99/58 L 100 07/14/18 15:44 07/14/18 15:44 07/14/18 15:44 07/14/18 15:44 07/14/18 15:44 Oxygen Delivery Method Room Air Weight: 68.946 kg Body Mass Index (BMI) 28.7 Finger Stick Blood Glucose 394 Intake and Output for Last 24 Hours 07/13/18 07/14/18 07/15/18 23:59 23:59 23:59 Intake Total 1620 / 1620 1650 / 1650 480 / 480 Balance 1620 / 1620 1650 / 1650 480 / 480 Laboratory Tests Past 24 Hrs 07/12/18 05:18 Diff Path Review Reviewed POC Glucose 07/15/18 07/15/18 07/14/18 11:22 06:20 21:19 POC Glucose 280 H 186 H 232 H 07/14/18 16:58 POC Glucose 145 H Medical Necessity - Tobacco Use Smoking Status: Never smoker Tobacco Use: Non-smoker Assessment/Plan All Active Problems (Last Updated 07/11/18 @ 08:02 by Paulo Davey MD) Debility (Acute) Left hip pain (Acute) E. coli UTI (Acute) Acute cystitis (Acute) E. coli infection (Acute) Fall (Acute) Weakness (Acute) Hyperglycemia (Acute) Pressure ulcer of left foot, stage 3 (Ruled-out) Cellulitis and wound right hallux Bilateral leg ulcers with fat layer exposed, no infection Venous insufficiency bilateral lower extremities Small vessel disease Tinea unguium with pain bilateral 1, 2, 3, 4, 5 Delayed healing Uncontrolled diabetes with neuropathy Malnutrition suspected Fall risk Other comorbidities I reviewed and discussed her case today. The ulcer sites were debrided today with a 15 blade scapel to remove non viable subcutaneous, devitalized, fibrous, biofilm, slough. Verbal consent was obtained and she did tolerate this well. Pressure was applied to maintain hemostasis. A dressing of santyl and gauze is recommended to leg and foot ulcer sites. The new fluid collection is noted to the right hallux site and this was cultured (aerobic and anearobic). Antibiotics will be considered pending culture and clinical response. Betadine wick dressing was applied. This will be monitored. To wear surgical shoe to keep pressure off of this site. Xrays will also be ordered to rule out any deeper involvement. Her vascular studies were reviewed from earlier this year. I recommend an outpatient vascular referral due to the chronicity of these ulcer sites. She has triphasic waveforms to the toes, elevated maya, and reduced toe brachial indices. She was educated that the abnormal toenail findings may be secondary to nail fungus or microtrauma. The toenails were debrided bilateral 2,3,4,5 and left hallux with a nail nipper in length and thickness to reduce pain and fungal load. This was performed without incidence and she tolerated this well. Medical management and DVT prophylaxis per primary team is appreciated. To continue with rehabilitation for deconditioning prevention. It is noted her hemoglobin A1c was 13.6% and continue glycemic control is imperative for ulcer healing. I recommend a route vending machine servicer consult with educational implementation. To d/c soda and high sugar foot snacks. I answered all of her questions and will continue to follow her while in house. Lilli West DPM, [facility] [phone]
--- NOTE | 2018-07-15 13:03 | NURSING ---
dr Ruizone here to change dressings.
[2018-07-15 15:39] VITALS: BP 94/45; PULSE 76; RESP 16; TEMP 36.9; O2SAT 94
[2018-07-15 17:00] LABS: Bedside Glucose 164 mg/dL (70-110)
[2018-07-15] MEDS: Atorvastatin Calcium 20 MG Tablet PO (20:07)
--- NOTE | 2018-07-15 20:10 | RAD_ITS ---
STUDY: X-RAY - RIGHT FOOT CLINICAL: Female, 83 years old. Infected soft tissue ulceration of the hallux. TECHNIQUE: 3 view(s) of the foot. COMPARISON: None. FINDINGS: There is a plantar calcaneal spur. There are degenerative changes of the intertarsal articulations. There is demineralization of the metatarsi. There is deformity of the first metatarsal probably related to previous osteotomy. There is degenerative arthrosis of the metatarsophalangeal joint of the hallux with a hallux valgus deformity. Normal tibial and fibular sesamoid bones. There is degenerative arthrosis of the interphalangeal joint of the great toe. Normal phalanges of the great toe. Normal second through fifth metatarsophalangeal joints. Normal interphalangeal joints and phalanges of the lesser toes. There is soft tissue swelling of the ankle and foot. There is pes planus. There is an ulceration located volar to the distal phalanx of the hallux. RAD/Foot min 3 Views IMPRESSION: 1. Postoperative changes of the first metatarsal with residual hallux valgus. 2. There is soft tissue swelling and ulceration of the hallux with small erosive changes of the proximal phalanx of the hallux that could represent sequela of osteomyelitis. Electronically Signed: Aminta Costa MD at 20:47 EST , Service support ,
[2018-07-15 21:20] LABS: Bedside Glucose 231 mg/dL (70-110)
[2018-07-15] MEDS: Acetaminophen 500 MG Tablet 1000 MG PO (23:51)
[2018-07-16] MEDS: Menthol/Lanolin/Calamine/Znox 113 GM Tube 1 APPLIC TOPICAL ×3 (04:34→20:23)
[2018-07-16] MEDS: Aspirin E.C. 81 MG Tablet PO (04:35)
[2018-07-16] MEDS: Senna/Docusate Sodium 1 Tablet PO ×2 (04:35→17:50)
[2018-07-16] MEDS: APIXABAN 5 MG TABLET PO ×2 (04:35→17:50)
[2018-07-16] MEDS: Polyethylene Glycol 3350 17 GM PACKET PO (04:36)
[2018-07-16] MEDS: Tolterodine Tartrate 4 MG CAP.SA PO (04:36)
[2018-07-16] MEDS: Nystatin Powder 15gm Bottle 1 APPLIC TOPICAL ×2 (04:41→20:22)
[2018-07-16 06:31] LABS: Bedside Glucose 353 mg/dL (70-110)
[2018-07-16] MEDS: Lisinopril 5 MG Tablet PO (07:07)
[2018-07-16] MEDS: metFORMIN HCl 1,000 MG Tablet 1000 MG PO ×2 (07:40→17:50)
[2018-07-16] MEDS: Insulin Lispro 100 UNIT/ML INSULN.PEN 7 UNIT SC ×3 (07:41→17:52)
[2018-07-16] MEDS: Collagenase 30gm Tube 1 APPLIC TOPICAL (10:18)
[2018-07-16 11:26] LABS: Bedside Glucose 316 mg/dL (70-110)
[2018-07-16 15:24] VITALS: PULSE 60; RESP 18; O2SAT 92
[2018-07-16 15:36] VITALS: BP 97/58; PULSE 60; RESP 16; TEMP 37.1; O2SAT 92
[2018-07-16 17:15] LABS: Bedside Glucose 182 mg/dL (70-110)
[2018-07-16] MEDS: Atorvastatin Calcium 20 MG Tablet PO (20:22)
[2018-07-16 21:00] LABS: Bedside Glucose 176 mg/dL (70-110)
--- NOTE | 2018-07-16 21:59 | PCM.PROGNOTE ---
Patient Problems: Active and Suspected Problems (Last Updated 07/11/18 @ 08:02 by Paulo Davey MD) Debility (Acute) Left hip pain (Acute) E. coli UTI (Acute) Peripheral vascular disease (Suspected) Subjective: This 83-year-old female with multiple comorbidities was seen bedside today for follow-up of right hallux ulcer with cellulitis which most of her hallux nail was removed yesterday. Her pain continues. She denies fever, chill, nausea, vomiting. - Physical Exam General: Alert, Oriented x3, Cooperative Extremities: No cyanosis, Capillary Refill Less than 3 Seconds - all digits right foot, No Calf Tenderness - Negative Jalil and Britt sign bilateral, Diminished Peripheral Pulses, Edema, Tenderness - Pain with wound manipulation right hallux Skin: Ulcer/ Wound - Resolved purulence noted right hallux. There is no erythema or streaking or odor noted. The nail bed is granular with fibrous tissue and distal eschar, - - The peripheral skin is hairless and atrophic Musculoskeletal: No Tenderness to Palpation of Joints or Extremities, Muscle Wasting Neurological: - - Lack of epicritic sensation to light touch Psych/Mental Status: Normal Affect, Appropriate Vital Signs Temp Pulse Resp BP Pulse Ox 98.8 F 60 16 97/58 L 92 07/16/18 15:36 07/16/18 15:36 07/16/18 15:36 07/16/18 15:36 07/16/18 15:36 Oxygen Delivery Method Room Air Weight: 73.936 kg Body Mass Index (BMI) 28.7 Finger Stick Blood Glucose 394 Intake and Output for Last 24 Hours 07/14/18 07/15/18 07/16/18 23:59 23:59 23:59 Intake Total 1650 / 1650 1080 / 1080 1200 / 1200 Balance 1650 / 1650 1080 / 1080 1200 / 1200 Microbiology Past 72 Hours 07/15/18 13:43 Gram Stain - Final Wound - Aerobic & Anaerobic Swabs Wound Culture - Preliminary Staphylococcus aureus Gram positive organism POC Glucose 07/16/18 07/16/18 07/16/18 20:52 17:03 11:15 POC Glucose 176 H 182 H 316 H 07/16/18 06:19 POC Glucose 353 H Medical Necessity - Tobacco Use Smoking Status: Never smoker Tobacco Use: Non-smoker Assessment/Plan All Active Problems (Last Updated 07/11/18 @ 08:02 by Paulo Davey MD) Debility (Acute) Left hip pain (Acute) E. coli UTI (Acute) Acute cystitis (Acute) E. coli infection (Acute) Fall (Acute) Weakness (Acute) Hyperglycemia (Acute) Pressure ulcer of left foot, stage 3 (Ruled-out) Cellulitis and wound right hallux Bilateral leg ulcers with fat layer exposed, no infection Venous insufficiency bilateral lower extremities Small vessel disease Delayed healing Uncontrolled diabetes with neuropathy Malnutrition suspected Fall risk Other comorbidities The right hallux cellulitis wound site was evaluated and is demonstrating significant improvement today; there is no purulence or redness. This site was cultured yesterday (aerobic and anearobic), and gram-positive bacterial growth is noted and the final result is pending. Antibiotics will be considered pending culture and clinical response. Betadine wick dressing was applied. Okay to resume Santyl application to this site as well on a daily basis. To wear surgical shoe to keep pressure off of this site. Xrays were reviewed with no soft tissue emphysema, foreign body, acute fracture dislocation. There is some ostial lysis reported to the proximal phalanx however this does not correlate clinically with the ulcer site being over the distal phalanx. Labs pending tomorrow. I will continue to follow her on this matter. Medical management and DVT prophylaxis per primary team is appreciated. Lilli West DPM, [facility] [phone]
[2018-07-17] MEDS: Nystatin Powder 15gm Bottle 1 APPLIC TOPICAL ×2 (04:49→20:38)
[2018-07-17] MEDS: Menthol/Lanolin/Calamine/Znox 113 GM Tube 1 APPLIC TOPICAL ×3 (04:50→20:37)
[2018-07-17] MEDS: Polyethylene Glycol 3350 17 GM PACKET PO (04:52)
[2018-07-17] MEDS: Tolterodine Tartrate 4 MG CAP.SA PO (04:53)
[2018-07-17] MEDS: APIXABAN 5 MG TABLET PO ×2 (04:54→17:33)
[2018-07-17] MEDS: Senna/Docusate Sodium 1 Tablet PO ×2 (04:55→17:33)
[2018-07-17] MEDS: Aspirin E.C. 81 MG Tablet PO (04:55)
[2018-07-17] MEDS: Lisinopril 5 MG Tablet PO (04:59)
[2018-07-17 06:08] LABS: Absolute Lymphocyte Count 1.72 X10^3/ul (0.83-4.51); Absolute Neutrophil Count 3.7 X10^3/uL (2.0-7.7); Basophil# 0.01 X10^3/uL; Basophil% 0.2 % (0-1); Eosinophil# 0.08 X10^3/uL; Eosinophils% 1.3 % (0-5); Hematocrit 30.7 % (37-47); Hemoglobin 9.7 g/dl (12.0-15.0); Lymphocyte # 1.72 X10^3/ul (4.0); Lymphocyte % 28.1 % (19-41); Mean Corp Hgb Conc 31.6 g/gl (32-36); Mean Corpuscular Hgb 27.6 pg (27.0-32.0); Mean Corpuscular Volume 87.2 fL (81-99); Mean Platelet Vol. 9.7 fl (6.2-12.0); Monocyte# 0.57 X10^3/uL; Monocyte% 9.3 % (0-10); Neutrophil # 3.68 X10^3/uL (2.7-7.7); Neutrophil % 60.1 % (47-70); Platelet Count 321 K/mm3 (150-450); RBC Distribution Width CV 15.5 % (11.6-14.6); RBC Distribution Width SD 49.5 fl (35.1-43.9); Red Blood Count 3.52 M/mm3 (4.2-5.4); White Blood Count 6.1 K/mm3 (4.4-11.0)
[2018-07-17 06:24] LABS: POSITIVE COUNT NO; POSITIVE DIFFERENTIAL NO; POSITIVE MORPHOLOGY NO
[2018-07-17 07:01] LABS: Bedside Glucose 163 mg/dL (70-110)
[2018-07-17] MEDS: metFORMIN HCl 1,000 MG Tablet 1000 MG PO ×2 (08:01→17:33)
[2018-07-17] MEDS: Insulin Lispro 100 UNIT/ML INSULN.PEN 7 UNIT SC ×3 (08:01→17:37)
--- NOTE | 2018-07-17 08:12 | NURSING ---
Dr. Callahan reviewed labs, NO for ferrex daily.
--- NOTE | 2018-07-17 09:03 | CASEMGMT ---
Plan of care meeting held. Resident present as well as resident family. No discharge date set at this time. Resident plans to discharge to home alone at time of discharge. Resident plans to continue with further care and treatment on the Transitional Care Unit at this time. Resident family expressing concerns of resident returning to home alone at time of discharge. Resident family aware that resident is able to make her own choices at this time, but team is also identifying concerns of resident discharge as well. Did broach topic of Meals on Wheels, [facility], and Medicaid. Resident is not open to Meals on Wheels at this time and is reporting to not be able to qualify for Medicaid. Support given. Will continue to follow. An Garcia, SERVICE ORDER EXPEDITER, FIRST HELPER
[2018-07-17 10:40] VITALS: PULSE 85; RESP 18; O2SAT 99
[2018-07-17 11:56] LABS: Bedside Glucose 177 mg/dL (70-110)
[2018-07-17] MEDS: Collagenase 30gm Tube 1 APPLIC TOPICAL (13:00)
[2018-07-17 16:00] VITALS: BP 114/53; PULSE 85; RESP 20; TEMP 36.6; O2SAT 99
[2018-07-17 17:10] LABS: Bedside Glucose 190 mg/dL (70-110)
--- NOTE | 2018-07-17 18:49 | NURSING ---
Patient requesting referral to corn chip maker, Dr. Callahan notified, NO to consult Dr. Reinoso.
[2018-07-17] MEDS: Atorvastatin Calcium 20 MG Tablet PO (20:38)
[2018-07-17 21:31] LABS: Bedside Glucose 186 mg/dL (70-110)
[2018-07-18] MEDS: Menthol/Lanolin/Calamine/Znox 113 GM Tube 1 APPLIC TOPICAL ×3 (06:45→20:38)
[2018-07-18] MEDS: Lisinopril 5 MG Tablet PO (06:46)
[2018-07-18] MEDS: Senna/Docusate Sodium 1 Tablet PO ×2 (06:46→17:54)
[2018-07-18] MEDS: APIXABAN 5 MG TABLET PO ×2 (06:46→17:54)
[2018-07-18] MEDS: Aspirin E.C. 81 MG Tablet PO (06:46)
[2018-07-18] MEDS: Polyethylene Glycol 3350 17 GM PACKET PO (06:46)
[2018-07-18] MEDS: Tolterodine Tartrate 4 MG CAP.SA PO (06:46)
[2018-07-18] MEDS: Nystatin Powder 15gm Bottle 1 APPLIC TOPICAL ×2 (06:47→20:39)
[2018-07-18 06:51] LABS: Bedside Glucose 134 mg/dL (70-110)
[2018-07-18] MEDS: metFORMIN HCl 1,000 MG Tablet 1000 MG PO ×2 (07:58→17:54)
[2018-07-18] MEDS: Iron Polysaccharide Complex 150 MG CAPSULE PO (07:58)
[2018-07-18] MEDS: Insulin Lispro 100 UNIT/ML INSULN.PEN 7 UNIT SC ×3 (07:59→17:54)
[2018-07-18 10:00] VITALS: PULSE 88
[2018-07-18 10:46] LABS: Bedside Glucose 166 mg/dL (70-110)
--- NOTE | 2018-07-18 12:27 | CASEMGMT ---
Addendum entered by An Garcia 07/18/18 13:01: Reviewed and approved social work student M[employer] documentation. THERESA Ureña, IN HOME BABY SITTER Original Note: Brief interview for mental status (BIMS) and mood (PHQ-9) completed on this day. BIMS score 13/15. PHQ-9 score 0/27. Justin Cornejo social work student
[2018-07-18] MEDS: Collagenase 30gm Tube 1 APPLIC TOPICAL (14:02)
[2018-07-18 14:54] VITALS: BP 116/57; PULSE 87; RESP 18; TEMP 36.9; O2SAT 97
[2018-07-18 16:51] LABS: Bedside Glucose 190 mg/dL (70-110)
[2018-07-18] MEDS: Atorvastatin Calcium 20 MG Tablet PO (20:40)
[2018-07-18 21:16] LABS: Bedside Glucose 170 mg/dL (70-110)
[2018-07-19] MEDS: Menthol/Lanolin/Calamine/Znox 113 GM Tube 1 APPLIC TOPICAL ×3 (05:25→21:57)
[2018-07-19] MEDS: Nystatin Powder 15gm Bottle 1 APPLIC TOPICAL ×2 (05:26→21:58)
[2018-07-19] MEDS: Senna/Docusate Sodium 1 Tablet PO (05:27)
[2018-07-19] MEDS: Aspirin E.C. 81 MG Tablet PO (05:27)
[2018-07-19] MEDS: APIXABAN 5 MG TABLET PO ×2 (05:27→17:38)
[2018-07-19] MEDS: Lisinopril 5 MG Tablet PO (05:27)
[2018-07-19] MEDS: Tolterodine Tartrate 4 MG CAP.SA PO (05:27)
[2018-07-19] MEDS: Polyethylene Glycol 3350 17 GM PACKET PO (05:27)
[2018-07-19 05:50] LABS: Absolute Lymphocyte Count 1.56 X10^3/ul (0.83-4.51); Absolute Neutrophil Count 3.7 X10^3/uL (2.0-7.7); Basophil# 0.01 X10^3/uL; Basophil% 0.2 % (0-1); Eosinophil# 0.08 X10^3/uL; Eosinophils% 1.4 % (0-5); Hematocrit 30.6 % (37-47); Hemoglobin 9.5 g/dl (12.0-15.0); Lymphocyte # 1.56 X10^3/ul (4.0); Lymphocyte % 26.5 % (19-41); Mean Corpuscular Hgb 27.5 pg (27.0-32.0); Mean Corpuscular Volume 88.4 fL (81-99); Mean Platelet Vol. 9.4 fl (6.2-12.0); Monocyte# 0.52 X10^3/uL; Monocyte% 8.8 % (0-10); Neutrophil # 3.67 X10^3/uL (2.7-7.7); Neutrophil % 62.3 % (47-70); Platelet Count 348 K/mm3 (150-450); RBC Distribution Width CV 15.6 % (11.6-14.6); RBC Distribution Width SD 50.3 fl (35.1-43.9); Red Blood Count 3.46 M/mm3 (4.2-5.4); White Blood Count 5.9 K/mm3 (4.4-11.0)
[2018-07-19 05:55] LABS: POSITIVE COUNT NO; POSITIVE DIFFERENTIAL NO; POSITIVE MORPHOLOGY NO
[2018-07-19 06:08] LABS: Anion Gap 5 (5-15); BUN 28 mg/dL (7-18); BUN/Creat Ratio 53.5 RATIO (10-20); Calcium,Total 7.8 mg/dL (8.5-10.1); Chloride 100 mmol/L (98-107); Creatinine, Serum 0.52 mg/dL (0.55-1.02); EST Glomerular Filtration Rate 119 mL/min (>60); Est Glom Filt Rate - Afr Amer 145 mL/min (>60); Estimated Creatinine Clearance 33.29 ml/min; Glucose 72 mg/dL (74-106); Potassium 4.2 mmol/L (3.5-5.1); Sodium Level 137 mmol/L (136-145)
[2018-07-19 06:55] LABS: Bedside Glucose 74 mg/dL (70-110)
--- NOTE | 2018-07-19 07:00 | NURSING ---
Pt Bs 76 no s/sx noted during this time given orange juice at this time will recheck in 15 mins. Bishnu Lara aware.
--- NOTE | 2018-07-19 07:14 | NURSING ---
This nurse rechecked pt BS 112 at this time Rn aware.
[2018-07-19 07:16] LABS: Bedside Glucose 112 mg/dL (70-110)
[2018-07-19] MEDS: Iron Polysaccharide Complex 150 MG CAPSULE PO (08:46)
[2018-07-19] MEDS: metFORMIN HCl 1,000 MG Tablet 1000 MG PO ×2 (08:46→17:38)
[2018-07-19] MEDS: Insulin Lispro 100 UNIT/ML INSULN.PEN 7 UNIT SC ×3 (08:46→17:40)
[2018-07-19] MEDS: Tuberculin,Purif.prot.deriv. 50 TU/ML Vial 5 ML ID (11:23)
[2018-07-19 11:25] LABS: Bedside Glucose 134 mg/dL (70-110)
--- NOTE | 2018-07-19 14:17 | NURSING ---
Addendum entered by Margarita Tyler 07/19/18 14:45: notified raimundo in [facility], sending 2 surgical shoes up at this time. Original Note: Addendum entered by Margarita Tyler 07/19/18 14:22: Dr Do returned call, no ATB's needed, but will need to obtain surgical shoes bilaterally. Original Note: spoke with dr do donor relations officer regarding surgical shoes for bilat feet & update on wound cultures results.
[2018-07-19] MEDS: Collagenase 30gm Tube 1 APPLIC TOPICAL (14:29)
[2018-07-19 15:43] VITALS: BP 111/42; PULSE 90; RESP 18; TEMP 36.9; O2SAT 94
[2018-07-19 16:56] LABS: Bedside Glucose 98 mg/dL (70-110)
[2018-07-19 20:56] LABS: Bedside Glucose 120 mg/dL (70-110)
[2018-07-19 21:30] VITALS: PULSE 70; RESP 18; O2SAT 93
[2018-07-19] MEDS: Atorvastatin Calcium 20 MG Tablet PO (21:59)
[2018-07-20] MEDS: Menthol/Lanolin/Calamine/Znox 113 GM Tube 1 APPLIC TOPICAL ×3 (05:06→20:24)
[2018-07-20] MEDS: Tolterodine Tartrate 4 MG CAP.SA PO (05:07)
[2018-07-20] MEDS: APIXABAN 5 MG TABLET PO ×2 (05:07→17:51)
[2018-07-20] MEDS: Polyethylene Glycol 3350 17 GM PACKET PO (05:07)
[2018-07-20] MEDS: Aspirin E.C. 81 MG Tablet PO (05:07)
[2018-07-20] MEDS: Senna/Docusate Sodium 1 Tablet PO (05:07)
[2018-07-20] MEDS: Lisinopril 5 MG Tablet PO (05:08)
[2018-07-20 07:06] LABS: Bedside Glucose 112 mg/dL (70-110)
[2018-07-20] MEDS: Iron Polysaccharide Complex 150 MG CAPSULE PO (07:52)
[2018-07-20] MEDS: metFORMIN HCl 1,000 MG Tablet 1000 MG PO ×2 (07:52→17:51)
[2018-07-20] MEDS: Insulin Lispro 100 UNIT/ML INSULN.PEN 7 UNIT SC ×3 (07:53→17:53)
[2018-07-20] MEDS: Nystatin Powder 15gm Bottle 1 APPLIC TOPICAL ×2 (07:56→20:24)
[2018-07-20 11:40] LABS: Bedside Glucose 206 mg/dL (70-110)
[2018-07-20] MEDS: Collagenase 30gm Tube 1 APPLIC TOPICAL (14:58)
[2018-07-20 15:40] VITALS: BP 109/45; PULSE 71; RESP 18; TEMP 36.9; O2SAT 100
[2018-07-20 17:11] LABS: Bedside Glucose 157 mg/dL (70-110)
[2018-07-20] MEDS: Atorvastatin Calcium 20 MG Tablet PO (20:25)
--- NOTE | 2018-07-20 20:45 | PCA ---
Patient transportation aide light continously tonight c/o curlex wraps on legs. After multiple attempts to redirect and try to make patient comfortable, patient stated to aide that if someone didnt come and rewrap her legs she was just going to take them off herself. Reported to VICK Whittaker and ROSARIO Stephens.
[2018-07-20 21:21] LABS: Bedside Glucose 149 mg/dL (70-110)
[2018-07-20] MEDS: Acetaminophen 500 MG Tablet 1000 MG PO (21:41)
--- NOTE | 2018-07-20 22:18 | NURSING ---
Pt has been calling for staff repeatedly since shift began. Wanting snacks and cookies, pop and coffee. Per pt she has had seven coffees tonight. Offered fresh water or one diet soda as pt has been eating snacks and drinking soda in excess. She was not happy with this and said my doctor said there's no difference between diet pop and water. Pt does not believe artificial sugars are a 'real thing', when this nurse attempted to explain difference between regular and diet pop. Given one pop and three packs of domingo crackers. Medicated at this time also. HR DIRECTOR on shift prior removed silvia wraps per pt request. Pt has since asked for them off and on again several times. Saying she is going to tear apart her dressings if staff does not do as she says. Encouraged not to do this. At 945p, given PRN tylenol 1000mg for pain pt said was 10/10, and at this time pt angrily said she has never been treated so poorly in all her life, staff is ignoring her, and no one has been to her room since at least 2pm. She also said 'my pain is so bad I haven't been able to sleep at all tonight'. Reminded pt it was not yet 10pm and she had been drinking coffee all day long, as well as pop with caffeine. Pt did not want to hear this and maintains no one has been in her room even though all nurses and aides have been in room multiple times, at least since the start of 7pm shift. All staff aware of this, continuing to monitor.
--- NOTE | 2018-07-21 01:36 | NURSING ---
Pt not wanting to get washed-up evening of 07/20/18.
--- NOTE | 2018-07-21 01:44 | NURSING ---
Pt continues to call and ask for snacks and soda. Has been given sugar free jellos and there are not any more left on the unit. Calling repeatedly asking 'what can I have to eat?' and was given applesauce. Encouraged to drink water over pop and to rest. Repositioned and pulled up in bed. When this nurse mentioned trying to get some sleep pt snapped back why sleeping ain't gonna do my feet no good will it? and pt was gently reminded sleep is important for healing and general rest of the body. Pt asked when there will be more jello and other food available and was not happy she was told breakfast or when the kitchen opened. Currently finishing snack. States she is comfortable in bed. Both RNs on duty aware, continuing to monitor.
[2018-07-21] MEDS: Nystatin Powder 15gm Bottle 1 APPLIC TOPICAL ×2 (06:01→21:05)
[2018-07-21] MEDS: Polyethylene Glycol 3350 17 GM PACKET PO (06:01)
[2018-07-21] MEDS: APIXABAN 5 MG TABLET PO ×2 (06:02→17:28)
[2018-07-21] MEDS: Senna/Docusate Sodium 1 Tablet PO ×2 (06:02→17:29)
[2018-07-21] MEDS: Menthol/Lanolin/Calamine/Znox 113 GM Tube 1 APPLIC TOPICAL ×3 (06:02→21:05)
[2018-07-21] MEDS: Tolterodine Tartrate 4 MG CAP.SA PO (06:03)
[2018-07-21] MEDS: Lisinopril 5 MG Tablet PO (06:03)
[2018-07-21] MEDS: Aspirin E.C. 81 MG Tablet PO (06:03)
--- NOTE | 2018-07-21 06:39 | NURSING ---
Dressings changed per orders, pt repositioned comfortably in bed.
[2018-07-21] MEDS: Iron Polysaccharide Complex 150 MG CAPSULE PO (08:08)
[2018-07-21] MEDS: metFORMIN HCl 1,000 MG Tablet 1000 MG PO ×2 (08:08→17:28)
[2018-07-21] MEDS: Insulin Lispro 100 UNIT/ML INSULN.PEN 7 UNIT SC ×3 (08:10→17:31)
[2018-07-21 08:16] LABS: Bedside Glucose 91 mg/dL (70-110)
[2018-07-21 11:55] LABS: Bedside Glucose 157 mg/dL (70-110)
[2018-07-21 15:00] VITALS: BP 96/37; PULSE 86; RESP 18; TEMP 37.2; O2SAT 96
[2018-07-21 16:56] LABS: Bedside Glucose 104 mg/dL (70-110)
--- NOTE | 2018-07-21 20:11 | PN_ITS ---
Patient Problems: Active and Suspected Problems (Last Updated 07/11/18 @ 08:02 by Paulo Davey MD) Debility (Acute) Left hip pain (Acute) E. coli UTI (Acute) Peripheral vascular disease (Suspected) Subjective: This 83-year-old female with multiple comorbidities was seen bedside today for follow-up of right hallux ulcer. Her toe pain has decreased. She denies fever, chill, nausea, vomiting. - Physical Exam General: Alert, Oriented x3, Cooperative Extremities: No edema - toe, right, Capillary Refill Less than 3 Seconds - right hallux distal tip, No Calf Tenderness - negative lori and becerra signs bilateral, Edema - bilateral lower extremities Skin: Ulcer/ Wound - right hallux nail bed is fibrous and with distal dorsal eschar that is moist. there is resolved erythema and edema. there is no purulence on expression. there is no interdigital maceration noted Musculoskeletal: Muscle Wasting, - - AROM digits right foot Neurological: - - lack of normal epicritic sensation via light touch right foot Psych/Mental Status: Normal Affect, Appropriate Vital Signs Temp Pulse Resp BP Pulse Ox 98.9 F 86 18 96/37 L 96 07/21/18 15:00 07/21/18 15:00 07/21/18 15:00 07/21/18 15:00 07/21/18 15:00 Oxygen Delivery Method Room Air Weight: 73.936 kg Body Mass Index (BMI) 28.7 Finger Stick Blood Glucose 394 Intake and Output for Last 24 Hours 07/19/18 07/20/18 07/21/18 23:59 23:59 23:59 Intake Total 1220 / 1220 800 / 800 960 / 960 Output Total 350 / 350 Balance 1220 / 1220 450 / 450 960 / 960 Microbiology Past 72 Hours 07/15/18 13:43 Gram Stain - Final Wound - Aerobic & Anaerobic Swabs Wound Culture - Final Staphylococcus aureus Enterococcus faecalis Anaerobic Culture - Final Anaerobic cocci POC Glucose 07/21/18 07/21/18 07/21/18 16:49 11:47 08:06 POC Glucose 104 157 H 91 07/20/18 21:14 POC Glucose 149 H Medical Necessity - Tobacco Use Smoking Status: Never smoker Tobacco Use: Non-smoker Assessment/Plan All Active Problems (Last Updated 07/11/18 @ 08:02 by Paulo Davey MD) Debility (Acute) Left hip pain (Acute) E. coli UTI (Acute) Acute cystitis (Acute) E. coli infection (Acute) Fall (Acute) Weakness (Acute) Hyperglycemia (Acute) Pressure ulcer of left foot, stage 3 (Ruled-out) Ulcer right hallux with fat layer exposed (cellulitis resolved and nail removal noted) Bilateral leg ulcers with fat layer exposed Venous insufficiency bilateral lower extremities Small vessel disease Delayed healing Uncontrolled diabetes with neuropathy Malnutrition suspected Fall risk Other comorbidities The right hallux cellulitis wound site was evaluated and this is resolved; there is no purulence or redness. Her labs are without leukocytosis and she remains afebrile. The culture results are noted and antibiotics are not advised at this time due to resolution of clinical cellulitis symptoms since debridement and nail removal has been performed. To continue Santyl application to this site as well all other foot and leg sites on a daily basis. Her dressing was reapplied this evening to the right great toe. To wear surgical shoe to keep pressure off of this site. Due to her delayed healing of her leg ulcers and continued eschar formation to the toe ulcer, I recommend a vascular referral on the outpatient basis. The podiatry team will continue to follow her closely while in house. Medical management and DVT prophylaxis per primary team is appreciated. Lilli West DPM, [facility] [phone]
[2018-07-21 21:00] VITALS: PULSE 80; RESP 18; O2SAT 94
[2018-07-21] MEDS: Atorvastatin Calcium 20 MG Tablet PO (21:05)
[2018-07-21 21:16] LABS: Bedside Glucose 148 mg/dL (70-110)
[2018-07-21 23:35] LABS: Bedside Glucose 82 mg/dL (70-110)
[2018-07-22] MEDS: Menthol/Lanolin/Calamine/Znox 113 GM Tube 1 APPLIC TOPICAL ×3 (04:56→21:18)
[2018-07-22] MEDS: Aspirin E.C. 81 MG Tablet PO (04:58)
[2018-07-22] MEDS: Tolterodine Tartrate 4 MG CAP.SA PO (04:58)
[2018-07-22] MEDS: APIXABAN 5 MG TABLET PO ×2 (04:58→17:29)
[2018-07-22] MEDS: Lisinopril 5 MG Tablet PO (04:59)
[2018-07-22] MEDS: Polyethylene Glycol 3350 17 GM PACKET PO (04:59)
[2018-07-22] MEDS: Senna/Docusate Sodium 1 Tablet PO ×2 (04:59→17:29)
[2018-07-22] MEDS: Nystatin Powder 15gm Bottle 1 APPLIC TOPICAL ×2 (04:59→21:19)
[2018-07-22 06:46] LABS: Bedside Glucose 68 mg/dL (70-110)
[2018-07-22 07:01] LABS: Bedside Glucose 114 mg/dL (70-110)
[2018-07-22] MEDS: Iron Polysaccharide Complex 150 MG CAPSULE PO (08:09)
[2018-07-22] MEDS: metFORMIN HCl 1,000 MG Tablet 1000 MG PO ×2 (08:09→17:29)
[2018-07-22] MEDS: Insulin Lispro 100 UNIT/ML INSULN.PEN 7 UNIT SC ×3 (08:14→17:30)
[2018-07-22 11:40] LABS: Bedside Glucose 168 mg/dL (70-110)
[2018-07-22] MEDS: Collagenase 30gm Tube 1 APPLIC TOPICAL (15:57)
[2018-07-22 16:00] VITALS: BP 140/53; PULSE 70; RESP 18; TEMP 36.3; O2SAT 97
--- NOTE | 2018-07-22 16:47 | NURSING ---
DRESSINGS CHANGED TO LOWER LEGS ,LEFT FOOT AND RIGHT BIG TOE. NEW MEPILEX TO RIGHT HEEL. PT TOLERATED WELL.
[2018-07-22 17:07] LABS: Bedside Glucose 149 mg/dL (70-110)
[2018-07-22 21:15] LABS: Bedside Glucose 122 mg/dL (70-110)
[2018-07-22] MEDS: Atorvastatin Calcium 20 MG Tablet PO (21:20)
[2018-07-22 21:28] VITALS: PULSE 80; RESP 16; O2SAT 95
[2018-07-23] MEDS: Menthol/Lanolin/Calamine/Znox 113 GM Tube 1 APPLIC TOPICAL ×3 (04:33→20:39)
[2018-07-23] MEDS: Nystatin Powder 15gm Bottle 1 APPLIC TOPICAL ×2 (04:34→20:38)
[2018-07-23] MEDS: Tolterodine Tartrate 4 MG CAP.SA PO (04:34)
[2018-07-23] MEDS: Lisinopril 5 MG Tablet PO (04:35)
[2018-07-23] MEDS: APIXABAN 5 MG TABLET PO ×2 (04:35→17:19)
[2018-07-23] MEDS: Aspirin E.C. 81 MG Tablet PO (04:35)
[2018-07-23] MEDS: Collagenase 30gm Tube 1 APPLIC TOPICAL (05:02)
[2018-07-23 06:46] LABS: Bedside Glucose 100 mg/dL (70-110)
[2018-07-23] MEDS: metFORMIN HCl 1,000 MG Tablet 1000 MG PO ×2 (08:33→17:19)
[2018-07-23] MEDS: Iron Polysaccharide Complex 150 MG CAPSULE PO (08:33)
[2018-07-23] MEDS: Insulin Lispro 100 UNIT/ML INSULN.PEN 7 UNIT SC ×2 (08:38→11:45)
[2018-07-23 11:00] LABS: Bedside Glucose 148 mg/dL (70-110)
[2018-07-23 15:25] VITALS: BP 101/53; PULSE 66; RESP 18; TEMP 36.4; O2SAT 93
[2018-07-23 16:46] LABS: Bedside Glucose 94 mg/dL (70-110)
--- NOTE | 2018-07-23 18:14 | NURSING ---
pt refusing to go home on insulin d/t pt having arthritis in hands and difficulty w/numbness as well. Dr Callahan updated, new order to DC insulin and start Amaryl 1 mg bid. pt updated on all.
[2018-07-23 20:40] LABS: Bedside Glucose 255 mg/dL (70-110)
[2018-07-23] MEDS: Atorvastatin Calcium 20 MG Tablet PO (20:41)
[2018-07-24] MEDS: Menthol/Lanolin/Calamine/Znox 113 GM Tube 1 APPLIC TOPICAL ×3 (06:12→19:43)
[2018-07-24] MEDS: Nystatin Powder 15gm Bottle 1 APPLIC TOPICAL ×2 (06:12→19:44)
[2018-07-24] MEDS: Tolterodine Tartrate 4 MG CAP.SA PO (06:13)
[2018-07-24] MEDS: Senna/Docusate Sodium 1 Tablet PO ×2 (06:13→16:42)
[2018-07-24] MEDS: Aspirin E.C. 81 MG Tablet PO (06:13)
[2018-07-24] MEDS: Lisinopril 5 MG Tablet PO (06:13)
[2018-07-24] MEDS: APIXABAN 5 MG TABLET PO ×2 (06:13→16:42)
[2018-07-24 06:55] LABS: Bedside Glucose 187 mg/dL (70-110)
[2018-07-24] MEDS: Glimepiride 1 MG Tablet PO ×2 (08:07→16:41)
[2018-07-24] MEDS: Iron Polysaccharide Complex 150 MG CAPSULE PO (08:07)
[2018-07-24] MEDS: metFORMIN HCl 1,000 MG Tablet 1000 MG PO ×2 (08:07→16:41)
[2018-07-24 11:30] LABS: Bedside Glucose 246 mg/dL (70-110)
--- NOTE | 2018-07-24 11:39 | PCM.CONS.GEN ---
Problem List (1) Uncontrolled diabetes mellitus Status: Chronic (2) Ulcer of right lower extremity with fat layer exposed Status: Chronic (3) Peripheral vascular disease Status: Suspected Reason for Consult Date of Consultation: 07/24/18 History of Present Illness: The patient is a 83 year old F there was admitted in after recently having some falls. This appears to be from UTI. From some of these falls he has had some areas below both knees that are scabbed and are healing. He has a wound in the distal right medial calf into the ankle that is slow to heal. She has significant bilateral edema. She also had a toe ulcer that the toenail has been removed and this appears to be improving per podiatry. Patient did have testing done when she had previous wounds back in the summer 2017. Bilateral ankles with triphasic flow and MADELINE 1.47 on the right 1.26 on the left. Right appears to be a little bit falsely elevated, did have some peaked waveforms noted, but overall was good waveforms and did have some triphasic flow. She has significant small vessel disease which we will have to watch closely with this right great toe. With the digit brachial index is 0.38 on the right and 0.28 on the left. She also had venous studies back in January 2018 that showed the right accessory saphenous below the knee 4.2 mm with reflux, and the right lesser saphenous with some chronic changes in it and 3.7 mm with reflux. Patient needs strict lifelong compression therapy and may need some of these venous insufficiency treated to help decrease some of her venous wounds. No coronary history. Did have an AVR in 2016. She has A. fib on Eliquis. Hyperlipidemia on statin. Hypertension on meds. Diabetes on meds and came in poorly controlled but secondary to eating a lot of cookies. No significant PAD or claudication type symptoms in the past. No smoking. [] Past Medical History Past Medical History (Chronic Problems): Chronic Problems (Last Reviewed 07/24/18 @ 11:41 by Robin Kimble MD) Uncontrolled diabetes mellitus (Chronic) Depression (Chronic) Anxiety (Chronic) Atrial fibrillation (Chronic) Overactive bladder (Chronic) Tinea unguium (Chronic) Type 2 diabetes mellitus with diabetic polyneuropathy (Chronic) Localized edema (Chronic) Ulcer of right lower extremity with fat layer exposed (Chronic) Ulcer of left lower extremity with fat layer exposed (Chronic) Chronic ulcer of left foot with fat layer exposed (Chronic) Hallux valgus (acquired), right foot (Chronic) Nonrheumatic mitral (valve) insufficiency (Chronic) Non-rheumatic tricuspid valve insufficiency (Chronic) HTN (hypertension) (Chronic) Anxiety and depression (Chronic) Ulcer of left lower extremity with fat layer exposed (Chronic) Venous insufficiency of both lower extremities (Chronic) Ulcer of right lower extremity with fat layer exposed (Chronic) Venous ulcers of both lower extremities (Chronic) Type 2 diabetes mellitus (Chronic) Paroxysmal atrial fibrillation (Chronic) Edema (Chronic) Dyspnea on exertion (Chronic) Shortness of breath (Chronic) History of aortic valve replacement with bioprosthetic valve (Chronic ~06/20/16) 23 mm Saint to trifecta GT valve in June 2016 at [facility]; Hyperlipidemia (Chronic) Pulmonary hypertension (Chronic) Medical History: Medical History (Last Reviewed 07/24/18 @ 11:41 by Robin Kimble MD) Pressure ulcer of left foot, stage 3 (Ruled-out) L89.893 Nonrheumatic mitral (valve) insufficiency (Chronic) I34.0 Non-rheumatic tricuspid valve insufficiency (Chronic) I36.1 HTN (hypertension) (Chronic) I10 Anxiety and depression (Chronic) F41.8 Ulcer of left lower extremity with fat layer exposed (Chronic) L97.922 Venous insufficiency of both lower extremities (Chronic) I87.2 Ulcer of right lower extremity with fat layer exposed (Chronic) L97.912 Venous ulcers of both lower extremities (Chronic) I87.2, L97.919, L97.929 Type 2 diabetes mellitus (Chronic) E11.9 Paroxysmal atrial fibrillation (Chronic) I48.0 Edema (Chronic) R60.9 Dyspnea on exertion (Chronic) R06.09 Shortness of breath (Chronic) R06.02 Hyperlipidemia (Chronic) E78.5 Pulmonary hypertension (Chronic) I27.2 Abnormal pulmonary function test R94.2 GERD (gastroesophageal reflux disease) K21.9 Hiatal hernia K44.9 Nonrheumatic aortic (valve) stenosis I35.0 Abnormal pulmonary function (Inactive) R94.2 Aortic stenosis (Inactive) I35.0 Atrial fibrillation and flutter (Inactive) I48.91, I48.92 Atrial fibrillation with RVR (Inactive) I48.91 DM2 (diabetes mellitus, type 2) (Inactive) E11.9 Diabetes mellitus (Inactive) E11.9 Mitral valve disorder (Inactive) I05.9 Allergies No Known Allergies Allergy (Verified 07/08/18 16:39) Home Medications: Ambulatory Orders Medication Instructions Recorded metformin 1,000 mg tablet 1,000 mg PO BIDCM 0 Days 03/15/18 aspirin 81 mg tablet,delayed 81 mg PO DAILY tab 04/24/18 release Apixaban [Eliquis] 5 mg PO BID 07/08/18 Atorvastatin Calcium 20 mg PO DAILY 07/08/18 Lisinopril [Zestril] 5 mg PO DAILY 07/08/18 Tolterodine Tartrate [Tolterodine 4 mg PO DAILY 07/08/18 Tartrate ER] Acetaminophen [Tylenol Tablet] 650 mg PO Q6H PRN PRN tablet 07/11/18 Ciprofloxacin [Cipro] 250 mg PO BID 07/11/18 Glucerna Shake 120 ml PO 4X/DAY 07/11/18 Insulin Glargine [Lantus SoloStar 10 units SC BREAKFAST 07/11/18 Pen] Insulin Lispro [Humalog KwikPen] See Protocol SC ACHS 07/11/18 Surgical History: Surgical History (Last Reviewed 07/24/18 @ 11:41 by Robin Kimble MD) History of aortic valve replacement with bioprosthetic valve (Chronic) Onset Date: ~06/20/16 Z95.4 23 mm Saint to trifecta GT valve in June 2016 at [facility]; History of carpal tunnel surgery Z92.89 History of dilatation and curettage Z98.890 History of knee replacement procedure of left knee Z96.652 History of knee replacement procedure of right knee Z96.651 H/O aortic valve replacement (Inactive) Z95.2 06/20/2016 @ [facility] H/O aortic valve replacement (Inactive) Onset Date: ~06/20/16 Z95.2 Surgical History: dilatation and curettage, total knee arthroplasty - Bilateral., - - S/P AVR (Porcine valve), Carpal Tunnel Release Psychiatric History: Anxiety, 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 Lives: Alone Smoking Status: Never smoker Tobacco Use: Non-smoker Alcohol: None Drugs: None - *Family History Paternal Family History: Family History (Last Reviewed 07/24/18 @ 11:42 by Robin Kimble MD) Father CAD (coronary artery disease) Mother CAD (coronary artery disease) History Items: Dementia, Heart Disease Maternal Family History: Family History (Last Reviewed 07/24/18 @ 11:42 by Robin Kimble MD) Father CAD (coronary artery disease) Mother CAD (coronary artery disease) History Items: Heart Disease Review of Systems Constitutional: Denies: Chills, Fever, Weight Change HEENT: Denies: Head Aches, Sinus Congestion, Sinus Drainage Cardiovascular: Denies: Chest Pain, Palpitations Respiratory: Denies: Cough, Shortness of breath at rest, Sputum production Gastrointestinal: Denies: Abdominal Pain, Nausea, Vomiting Genitourinary: Denies: Dysuria Musculoskeletal: Reports: - - Still some edema noted in both legs but she states this is better than normal. Still with healing of wounds in the right lower leg. Neurological: Denies: Numbness, Tingling, Focal weakness Patient Problems: Active and Suspected Problems (Last Reviewed 07/24/18 @ 11:41 by Robin Kimble MD) Debility (Acute) Left hip pain (Acute) E. coli UTI (Acute) Peripheral vascular disease (Suspected) - Physical Exam General: Alert, Oriented x3 HEENT: Atraumatic, PERRLA Oral: Moist Mucosa Neck: Supple Lungs: Clear to auscultation Cardiovascular: Irregular Rate Abdomen: Soft, Non Tender Extremities: No clubbing, Edema - Healing scabs below both knees. Healing scab in the left lower bailey. Still with a slow healing deeper wound in the medial right distal calf into the ankle. Right great toe is wrapped and appears improving per home agent we did not take this down at this point. Vital Signs Temp Pulse Resp BP Pulse Ox 97.6 F L 66 18 101/53 L 93 07/23/18 15:25 07/23/18 15:25 07/23/18 15:25 07/23/18 15:25 07/23/18 15:25 Oxygen Delivery Method Room Air Weight: 164 lb 8 oz Body Mass Index (BMI) 28.7 Finger Stick Blood Glucose 394 Intake and Output for Last 24 Hours 07/22/18 07/23/18 07/24/18 23:59 23:59 23:59 Intake Total 1460 / 1460 1450 / 1450 480 / 480 Balance 1460 / 1460 1450 / 1450 480 / 480 POC Glucose 07/24/18 07/24/18 07/23/18 11:27 06:47 20:33 POC Glucose 246 H 187 H 255 H 07/23/18 16:41 POC Glucose 94 Assessment/Plan All Active Problems (Last Reviewed 07/24/18 @ 11:41 by Robin Kimble MD) Debility (Acute) Left hip pain (Acute) E. coli UTI (Acute) Acute cystitis (Acute) E. coli infection (Acute) Fall (Acute) Weakness (Acute) Hyperglycemia (Acute) Pressure ulcer of left foot, stage 3 (Ruled-out) Patient with a fall and bilateral lower extremity wounds and venous ulcers. PAD. This appeared to be fairly stable in January 2018 with triphasic flow to the ankle. She does have small vessel disease which will make some of the right great toe slow to heal. We will follow closely. 2. Venous ulcers. She would need lifelong compression therapy. We will see her back in a month and see how the wounds are improving. May need to reimage some of the venous insufficiency to see the chronic changes throughout the right lesser saphenous. We may need to treat these with laser ablation. We will see at that point.
--- NOTE | 2018-07-24 14:11 | MDS.RN ---
Information for the mds was obtained from review of the clinical record, interview of resident, staff, and direct observation of resident's care.
[2018-07-24] MEDS: Collagenase 30gm Tube 1 APPLIC TOPICAL (15:08)
--- NOTE | 2018-07-24 15:41 | NURSING ---
wound photo: left medial lower leg
--- NOTE | 2018-07-24 15:42 | NURSING ---
wound photo: left medial foot
--- NOTE | 2018-07-24 15:42 | NURSING ---
wound photo:left heel
--- NOTE | 2018-07-24 15:43 | NURSING ---
wound photo: right medial lower leg
--- NOTE | 2018-07-24 15:43 | NURSING ---
wound photo: right heel
[2018-07-24 16:00] VITALS: BP 125/41; PULSE 68; RESP 18; TEMP 36.5; O2SAT 97
[2018-07-24 16:50] LABS: Bedside Glucose 238 mg/dL (70-110)
[2018-07-24] MEDS: Atorvastatin Calcium 20 MG Tablet PO (19:44)
[2018-07-24 20:30] VITALS: PULSE 73; RESP 16; O2SAT 96
[2018-07-24 20:56] LABS: Bedside Glucose 287 mg/dL (70-110)
[2018-07-25] MEDS: Menthol/Lanolin/Calamine/Znox 113 GM Tube 1 APPLIC TOPICAL ×3 (04:31→17:23)
[2018-07-25] MEDS: Nystatin Powder 15gm Bottle 1 APPLIC TOPICAL ×2 (04:32→21:12)
[2018-07-25] MEDS: Polyethylene Glycol 3350 17 GM PACKET PO (04:33)
[2018-07-25] MEDS: Senna/Docusate Sodium 1 Tablet PO ×2 (04:35→17:22)
[2018-07-25] MEDS: APIXABAN 5 MG TABLET PO ×2 (04:35→17:22)
[2018-07-25] MEDS: Tolterodine Tartrate 4 MG CAP.SA PO (04:35)
[2018-07-25] MEDS: Aspirin E.C. 81 MG Tablet PO (04:35)
[2018-07-25] MEDS: Lisinopril 5 MG Tablet PO (04:35)
[2018-07-25 06:46] LABS: Bedside Glucose 225 mg/dL (70-110)
[2018-07-25] MEDS: Glimepiride 2 MG Tablet PO ×2 (08:42→17:21)
[2018-07-25] MEDS: metFORMIN HCl 1,000 MG Tablet 1000 MG PO ×2 (08:42→17:21)
[2018-07-25] MEDS: Pioglitazone Hydrochloride 30 MG Tablet PO (08:42)
[2018-07-25] MEDS: Iron Polysaccharide Complex 150 MG CAPSULE PO (08:42)
[2018-07-25 10:00] VITALS: PULSE 99; RESP 16; O2SAT 93
[2018-07-25 11:25] LABS: Bedside Glucose 293 mg/dL (70-110)
--- NOTE | 2018-07-25 12:27 | CASEMGMT ---
Brief interview for mental status (BIMS) and mood (PHQ-9) completed on this day. BIMS score 11/15. PHQ-9 score 0/27. Justin Cornejo social work student
--- NOTE | 2018-07-25 13:12 | CASEMGMT ---
Student Social Work documentation reviewed. THERESA Christy
[2018-07-25] MEDS: Collagenase 30gm Tube 1 APPLIC TOPICAL (14:23)
[2018-07-25 16:00] VITALS: BP 122/50; PULSE 87; RESP 18; TEMP 37.1; O2SAT 97
[2018-07-25 17:00] LABS: Bedside Glucose 266 mg/dL (70-110)
[2018-07-25 21:11] LABS: Bedside Glucose 385 mg/dL (70-110)
[2018-07-25] MEDS: Atorvastatin Calcium 20 MG Tablet PO (21:12)
--- NOTE | 2018-07-25 21:13 | NURSING ---
Pt is upset blood sugar was in 300's, states it is because she was given an orange for breakfast and one for supper. Has been drinking pop and snacking this evening. Eating beans, ham, pigs feat and potatoes right now. Encouraged to drink water, states she does not like water and wants to talk to dietary regarding the 'extra orange'. Asymptomatic and denying any s/s hyperglycemia. RN aware. Continuing to monitor.
[2018-07-26] MEDS: Menthol/Lanolin/Calamine/Znox 113 GM Tube 1 APPLIC TOPICAL ×3 (05:25→20:47)
[2018-07-26] MEDS: Nystatin Powder 15gm Bottle 1 APPLIC TOPICAL ×2 (05:25→20:46)
[2018-07-26] MEDS: Furosemide 40 MG Tablet PO (05:26)
[2018-07-26] MEDS: Aspirin E.C. 81 MG Tablet PO (05:28)
[2018-07-26] MEDS: Lisinopril 5 MG Tablet PO (05:28)
[2018-07-26] MEDS: Tolterodine Tartrate 4 MG CAP.SA PO (05:28)
[2018-07-26] MEDS: Polyethylene Glycol 3350 17 GM PACKET PO (05:28)
[2018-07-26] MEDS: APIXABAN 5 MG TABLET PO ×2 (05:28→17:24)
[2018-07-26] MEDS: Senna/Docusate Sodium 1 Tablet PO ×2 (05:29→17:24)
--- NOTE | 2018-07-26 05:30 | NURSING ---
Pt stated she wants potassium pill to take with lasix as she did at home. Explained labs would need to be drawn and evaluated before medication is added. Jar half full of pickled pigs feet was thrown away after it was noted on label they are to be refrigerated after opening. Pt said she's eaten three jars and was okay with what was left of one being tossed out. Washed up for the day and repositioned comfortably in bed. RN aware of potassium supplement request. Continuing to monitor.
[2018-07-26 05:58] LABS: Absolute Lymphocyte Count 1.66 X10^3/ul (0.83-4.51); Absolute Neutrophil Count 2.8 X10^3/uL (2.0-7.7); Basophil# 0.02 X10^3/uL; Basophil% 0.4 % (0-1); Eosinophil# 0.11 X10^3/uL; Eosinophils% 2.2 % (0-5); Hematocrit 31.5 % (37-47); Hemoglobin 9.7 g/dl (12.0-15.0); Lymphocyte # 1.66 X10^3/ul (4.0); Lymphocyte % 32.9 % (19-41); Mean Corp Hgb Conc 30.8 g/gl (32-36); Mean Corpuscular Hgb 27.8 pg (27.0-32.0); Mean Corpuscular Volume 90.3 fL (81-99); Mean Platelet Vol. 9.7 fl (6.2-12.0); Monocyte% 7.9 % (0-10); Neutrophil # 2.81 X10^3/uL (2.7-7.7); Neutrophil % 55.8 % (47-70); Platelet Count 369 K/mm3 (150-450); RBC Distribution Width CV 15.9 % (11.6-14.6); RBC Distribution Width SD 51.2 fl (35.1-43.9); Red Blood Count 3.49 M/mm3 (4.2-5.4)
[2018-07-26 06:00] LABS: Anion Gap 5 (5-15); BUN 29 mg/dL (7-18); BUN/Creat Ratio 47.9 RATIO (10-20); Calcium,Total 8.3 mg/dL (8.5-10.1); Chloride 99 mmol/L (98-107); Creatinine, Serum 0.61 mg/dL (0.55-1.02); EST Glomerular Filtration Rate 101 mL/min (>60); Est Glom Filt Rate - Afr Amer 122 mL/min (>60); Estimated Creatinine Clearance 33.29 ml/min; Glucose 151 mg/dL (74-106); Potassium 4.5 mmol/L (3.5-5.1); Sodium Level 137 mmol/L (136-145)
[2018-07-26 06:22] LABS: POSITIVE COUNT NO; POSITIVE DIFFERENTIAL NO; POSITIVE MORPHOLOGY NO
[2018-07-26 07:01] LABS: Bedside Glucose 148 mg/dL (70-110)
[2018-07-26] MEDS: metFORMIN HCl 1,000 MG Tablet 1000 MG PO ×2 (08:36→17:24)
[2018-07-26] MEDS: Pioglitazone Hydrochloride 30 MG Tablet PO (08:37)
[2018-07-26] MEDS: Iron Polysaccharide Complex 150 MG CAPSULE PO (08:37)
[2018-07-26] MEDS: Glimepiride 2 MG Tablet PO ×2 (08:39→17:24)
[2018-07-26 11:15] LABS: Bedside Glucose 240 mg/dL (70-110)
[2018-07-26] MEDS: Collagenase 30gm Tube 1 APPLIC TOPICAL (14:14)
--- NOTE | 2018-07-26 14:17 | NURSING ---
THIS NURSE CHANGED DRESSINGS TO PT BL LEGS,LEFT FOOT AND RIGHT TOE. PT TOLERATED WELL.
[2018-07-26 16:00] VITALS: BP 130/52; PULSE 80; RESP 16; TEMP 36.4; O2SAT 98
[2018-07-26 17:21] LABS: Bedside Glucose 199 mg/dL (70-110)
[2018-07-26 20:15] VITALS: PULSE 68; RESP 16; O2SAT 94
[2018-07-26] MEDS: Atorvastatin Calcium 20 MG Tablet PO (20:46)
[2018-07-26 21:31] LABS: Bedside Glucose 270 mg/dL (70-110)
[2018-07-27 05:00] VITALS: BP 110/49; PULSE 61; RESP 18; O2SAT 97
[2018-07-27] MEDS: APIXABAN 5 MG TABLET PO ×2 (05:51→16:56)
[2018-07-27] MEDS: Tolterodine Tartrate 4 MG CAP.SA PO (05:51)
[2018-07-27] MEDS: Aspirin E.C. 81 MG Tablet PO (05:51)
[2018-07-27] MEDS: Nystatin Powder 15gm Bottle 1 APPLIC TOPICAL ×2 (05:52→20:46)
[2018-07-27] MEDS: Furosemide 40 MG Tablet PO (05:52)
[2018-07-27] MEDS: Menthol/Lanolin/Calamine/Znox 113 GM Tube 1 APPLIC TOPICAL ×3 (05:53→20:45)
[2018-07-27] MEDS: Lisinopril 5 MG Tablet PO (05:53)
[2018-07-27 06:51] LABS: Bedside Glucose 219 mg/dL (70-110)
[2018-07-27] MEDS: Iron Polysaccharide Complex 150 MG CAPSULE PO (07:59)
[2018-07-27] MEDS: metFORMIN HCl 1,000 MG Tablet 1000 MG PO ×2 (07:59→16:56)
[2018-07-27] MEDS: Glimepiride 2 MG Tablet PO ×2 (07:59→16:56)
[2018-07-27] MEDS: Pioglitazone Hydrochloride 30 MG Tablet PO (07:59)
--- NOTE | 2018-07-27 10:51 | PN_ITS ---
Patient Problems: Active and Suspected Problems (Last Reviewed 07/24/18 @ 11:41 by Robin Kimble MD) Debility (Acute) Left hip pain (Acute) E. coli UTI (Acute) Peripheral vascular disease (Suspected) Subjective: Patient was seen today for follow up on foot/leg ulcerations. She relates wounds are healing, states right great toe is feeling better. Wound right leg is still sore. Dr. Kimble from vascular surgery following patient. Patient has no new complaints at this time. She does not relate to any fever, chills, nausea or vo miting. - Physical Exam General: Alert, Oriented x3, Cooperative, No apparent distress Extremities: Capillary Refill Less than 3 Seconds, - - Ulceration right medial leg with mix of fibrous and granular tissue - measures 1.5cm x 1.0cm and down to the subcutaneous tissue layer - margins viable, there is noted to be a pink/light red coloration localized around the wound (looks slightly more darker than picture from 07/24/18) and the site is tender to palpation - she relates this is chronic, there is some serous drainage, there is no streaking, no maloder, no necrosis, no visible abscess, no fluctuance, no crepitus present - no deeper invovlement noted. Right hallux toenail is absent and site healing, there is a small dry eschar present to the distal aspect - there is no evidence of infection noted. Ulceration to the left leg measures 0.6cm x 0.5cm and down to the superficial subcutaneous tissue layer - base is granular and margins viable, ulceration to the plantar medial foot measuring 0.4cm x 0.3cm and down to the superficial subcutaneous tissue layer, base is granular and margins viable - there is no evidence of infection to the left foot or leg. No new ulcerations bilateral foot/ankle or leg. Chronic lower extremity venous insufficiency changes w/ chronic edema noted. Sensation diminished c/w peripheral neuropathy bilateral feet. No evidence of acute ischemia to the foot or leg bilateral. Bilateral heels doing well at this time with no open ulcerations present. Musculoskeletal: No Tenderness to Palpation of Joints or Extremities - foot or ankle bilatera Psych/Mental Status: Normal Affect, Appropriate, Alert and oriented to time, place, person, mood and affect Vital Signs Temp Pulse Resp BP Pulse Ox 97.5 F L 61 18 110/49 L 97 07/26/18 16:00 07/27/18 05:00 07/27/18 05:00 07/27/18 05:00 07/27/18 05:00 Oxygen Delivery Method Room Air Weight: 74.616 kg Body Mass Index (BMI) 28.7 Finger Stick Blood Glucose 394 Intake and Output for Last 24 Hours 07/25/18 07/26/18 07/27/18 23:59 23:59 23:59 Intake Total 1020 / 1020 1500 / 1500 600 / 600 Balance 1020 / 1020 1500 / 1500 600 / 600 POC Glucose 07/27/18 07/26/18 07/26/18 06:35 21:28 17:16 POC Glucose 219 H 270 H 199 H 07/26/18 11:12 POC Glucose 240 H Medical Necessity - Tobacco Use Smoking Status: Never smoker Tobacco Use: Non-smoker Assessment/Plan All Active Problems (Last Reviewed 07/24/18 @ 11:41 by Robin Kimble MD) Debility (Acute) Left hip pain (Acute) E. coli UTI (Acute) Acute cystitis (Acute) E. coli infection (Acute) Fall (Acute) Weakness (Acute) Hyperglycemia (Acute) Pressure ulcer of left foot, stage 3 (Ruled-out) Ulcer right hallux healing - no evidence of infection Bilateral lower extremity ulcerations Venous insufficiency bilateral lower extremities Peripheral arterial disease w/ small vessel disease Delayed healing Uncontrolled diabetes with neuropathy Malnutrition suspected Fall risk Other comorbidities Right hallux site healing. Continue with betadine solution and gauze dressing changes daily. Right medial leg ulceration - appears to be filling in with granular tissue. Ulcer was cultured due to findings mild erythema around margins - could possibly be due to chronic venous insufficiency, appears chronic. Will follow culture and patient may need antibiotic therapy pending results. Continue Santyl application to this site with overlying gauze dressing - change daily. Left leg and foot ulcers healing - Continue Santyl application to this site with overlying gauze dressing - change daily. Keep ulcers offloaded. Keep heels padded and offloaded. Continue with compression therapy bilateral lower extremity. Dr. Kimble from vascular surgery is following patient as well for her vascular disease. No evidence of acute vascular issues at this time. Today ulcerations sites were cleansed with normal saline solution, applied betadine solution to right hallux, and santyl to rest of ulcerations sites with overlying gauze, kerlix and silvia dressings. The podiatry team will continue to follow her while in house.
[2018-07-27 11:16] LABS: Bedside Glucose 330 mg/dL (70-110)
[2018-07-27] MEDS: Collagenase 30gm Tube 1 APPLIC TOPICAL (13:20)
[2018-07-27 15:20] VITALS: BP 142/45; PULSE 70; RESP 16; TEMP 36.4; O2SAT 100
[2018-07-27 16:14] VITALS: PULSE 72; O2SAT 98
[2018-07-27 16:46] LABS: Bedside Glucose 281 mg/dL (70-110)
[2018-07-27] MEDS: Atorvastatin Calcium 20 MG Tablet PO (20:47)
[2018-07-27 21:16] LABS: Bedside Glucose 212 mg/dL (70-110)
[2018-07-28] MEDS: Nystatin Powder 15gm Bottle 1 APPLIC TOPICAL ×2 (04:43→20:51)
[2018-07-28] MEDS: Menthol/Lanolin/Calamine/Znox 113 GM Tube 1 APPLIC TOPICAL ×3 (04:44→20:51)
[2018-07-28] MEDS: APIXABAN 5 MG TABLET PO ×2 (04:45→16:21)
[2018-07-28] MEDS: Lisinopril 5 MG Tablet PO (04:45)
[2018-07-28] MEDS: Furosemide 40 MG Tablet PO (04:45)
[2018-07-28] MEDS: Aspirin E.C. 81 MG Tablet PO (04:45)
[2018-07-28] MEDS: Tolterodine Tartrate 4 MG CAP.SA PO (04:45)
[2018-07-28 06:51] LABS: Bedside Glucose 160 mg/dL (70-110)
[2018-07-28] MEDS: Iron Polysaccharide Complex 150 MG CAPSULE PO (08:36)
[2018-07-28] MEDS: Pioglitazone Hydrochloride 30 MG Tablet PO (08:36)
[2018-07-28] MEDS: Glimepiride 2 MG Tablet PO ×3 (08:36→16:40)
[2018-07-28] MEDS: metFORMIN HCl 1,000 MG Tablet 1000 MG PO ×2 (08:36→16:21)
[2018-07-28 10:00] VITALS: PULSE 76; RESP 18; O2SAT 97
[2018-07-28 11:20] LABS: Bedside Glucose 311 mg/dL (70-110)
[2018-07-28 15:25] VITALS: BP 119/51; PULSE 84; RESP 14; TEMP 36.9; O2SAT 95
[2018-07-28] MEDS: Collagenase 30gm Tube 1 APPLIC TOPICAL (15:57)
--- NOTE | 2018-07-28 16:41 | NURSING ---
dr winter reviewed blood sugars, new order entered to increase amaryl.
[2018-07-28 17:05] LABS: Bedside Glucose 339 mg/dL (70-110)
--- NOTE | 2018-07-28 17:42 | NURSING ---
Notified Dr Ashley of pt wound culture prelim staph aureus. New order for augmentin x7 days
[2018-07-28] MEDS: Amox/Clavulanate 500 MG Tablet PO (18:39)
[2018-07-28 20:51] LABS: Bedside Glucose 234 mg/dL (70-110)
[2018-07-28] MEDS: Atorvastatin Calcium 20 MG Tablet PO (20:53)
[2018-07-29] MEDS: Tolterodine Tartrate 4 MG CAP.SA PO (04:51)
[2018-07-29] MEDS: Lisinopril 5 MG Tablet PO (04:51)
[2018-07-29] MEDS: APIXABAN 5 MG TABLET PO ×2 (04:51→16:40)
[2018-07-29] MEDS: Aspirin E.C. 81 MG Tablet PO (04:51)
[2018-07-29] MEDS: Furosemide 40 MG Tablet PO (04:51)
[2018-07-29] MEDS: Nystatin Powder 15gm Bottle 1 APPLIC TOPICAL ×2 (04:52→20:25)
[2018-07-29] MEDS: Menthol/Lanolin/Calamine/Znox 113 GM Tube 1 APPLIC TOPICAL ×3 (04:53→20:25)
[2018-07-29 06:46] LABS: Bedside Glucose 161 mg/dL (70-110)
[2018-07-29] MEDS: Glimepiride 4 MG Tablet PO ×2 (07:53→16:41)
[2018-07-29] MEDS: Amox/Clavulanate 500 MG Tablet PO ×2 (07:53→16:40)
[2018-07-29] MEDS: metFORMIN HCl 1,000 MG Tablet 1000 MG PO ×2 (07:54→16:40)
[2018-07-29] MEDS: Pioglitazone Hydrochloride 30 MG Tablet PO (07:54)
[2018-07-29] MEDS: Iron Polysaccharide Complex 150 MG CAPSULE PO (07:54)
[2018-07-29 10:56] LABS: Bedside Glucose 278 mg/dL (70-110)
--- NOTE | 2018-07-29 14:19 | NURSING ---
Nurse at Dr. Ashley's office notified of final wound culture and sensitivity report. States Dr. Ashley will be in contact with [facility] tomorrow with any changes.
[2018-07-29 15:25] VITALS: BP 122/51; PULSE 62; RESP 16; TEMP 36.6; O2SAT 100
[2018-07-29] MEDS: Senna/Docusate Sodium 1 Tablet PO (16:41)
[2018-07-29 17:00] LABS: Bedside Glucose 277 mg/dL (70-110)
[2018-07-29] MEDS: Collagenase 30gm Tube 1 APPLIC TOPICAL (18:21)
[2018-07-29] MEDS: Atorvastatin Calcium 20 MG Tablet PO (20:26)
[2018-07-29 21:11] LABS: Bedside Glucose 343 mg/dL (70-110)
[2018-07-30] MEDS: APIXABAN 5 MG TABLET PO ×2 (05:20→16:59)
[2018-07-30] MEDS: Senna/Docusate Sodium 1 Tablet PO ×2 (05:20→16:59)
[2018-07-30] MEDS: Lisinopril 5 MG Tablet PO (05:20)
[2018-07-30] MEDS: Furosemide 40 MG Tablet PO (05:20)
[2018-07-30] MEDS: Aspirin E.C. 81 MG Tablet PO (05:20)
[2018-07-30] MEDS: Tolterodine Tartrate 4 MG CAP.SA PO (05:20)
[2018-07-30] MEDS: Menthol/Lanolin/Calamine/Znox 113 GM Tube 1 APPLIC TOPICAL ×3 (05:23→20:38)
[2018-07-30] MEDS: Collagenase 30gm Tube 1 APPLIC TOPICAL (05:24)
[2018-07-30 06:45] LABS: Bedside Glucose 191 mg/dL (70-110)
[2018-07-30] MEDS: Nystatin Powder 15gm Bottle 1 APPLIC TOPICAL ×2 (07:18→20:38)
[2018-07-30] MEDS: Glimepiride 4 MG Tablet PO ×2 (07:43→16:57)
[2018-07-30] MEDS: Iron Polysaccharide Complex 150 MG CAPSULE PO (07:43)
[2018-07-30] MEDS: Pioglitazone Hydrochloride 30 MG Tablet PO (07:43)
[2018-07-30] MEDS: metFORMIN HCl 1,000 MG Tablet 1000 MG PO ×2 (07:43→16:57)
[2018-07-30] MEDS: Amox/Clavulanate 500 MG Tablet PO ×2 (07:43→16:57)
--- NOTE | 2018-07-30 10:39 | NURSING ---
In to reassess the pressure injuries to bilateral heels. dressings had just been changed on 07/28/18. plan to change dressings again on 08/01/18 since the dressings are to stay in place for 5 days. heels are currently offloaded at this time. rewrapped the LUIS wraps at this time to be sure that they go up to the knees. moderate edema noted to the upper calves. will continue to monitor.
[2018-07-30 11:46] LABS: Bedside Glucose 243 mg/dL (70-110)
[2018-07-30 15:20] VITALS: BP 149/48; PULSE 61; RESP 16; TEMP 36.4; O2SAT 100
[2018-07-30 17:05] LABS: Bedside Glucose 255 mg/dL (70-110)
[2018-07-30] MEDS: Atorvastatin Calcium 20 MG Tablet PO (20:39)
[2018-07-30 21:16] LABS: Bedside Glucose 368 mg/dL (70-110)
[2018-07-31] MEDS: APIXABAN 5 MG TABLET PO ×2 (05:20→16:59)
[2018-07-31] MEDS: Tolterodine Tartrate 4 MG CAP.SA PO (05:20)
[2018-07-31] MEDS: Menthol/Lanolin/Calamine/Znox 113 GM Tube 1 APPLIC TOPICAL ×3 (05:20→20:58)
[2018-07-31] MEDS: Aspirin E.C. 81 MG Tablet PO (05:20)
[2018-07-31] MEDS: Nystatin Powder 15gm Bottle 1 APPLIC TOPICAL ×2 (05:21→20:59)
[2018-07-31] MEDS: Lisinopril 5 MG Tablet PO (05:21)
[2018-07-31] MEDS: Senna/Docusate Sodium 1 Tablet PO ×2 (05:21→16:53)
[2018-07-31] MEDS: Furosemide 40 MG Tablet PO (05:21)
[2018-07-31 07:06] LABS: Bedside Glucose 205 mg/dL (70-110)
[2018-07-31] MEDS: Iron Polysaccharide Complex 150 MG CAPSULE PO (07:54)
[2018-07-31] MEDS: Pioglitazone Hydrochloride 30 MG Tablet PO (07:54)
[2018-07-31] MEDS: metFORMIN HCl 1,000 MG Tablet 1000 MG PO ×2 (07:55→16:53)
[2018-07-31] MEDS: Amox/Clavulanate 500 MG Tablet PO ×2 (07:55→16:53)
[2018-07-31] MEDS: Glimepiride 4 MG Tablet PO ×2 (07:55→16:53)
[2018-07-31 11:00] VITALS: PULSE 69; RESP 18; O2SAT 96
[2018-07-31 11:31] LABS: Bedside Glucose 310 mg/dL (70-110)
[2018-07-31] MEDS: Collagenase 30gm Tube 1 APPLIC TOPICAL (13:12)
--- NOTE | 2018-07-31 13:46 | NURSING ---
DRESSINGS TO LEGS DONE TODAY BY THIS NURSE.
[2018-07-31 14:58] VITALS: BP 129/52; PULSE 70; RESP 16; TEMP 37.5; O2SAT 98
[2018-07-31 17:01] LABS: Bedside Glucose 298 mg/dL (70-110)
[2018-07-31] MEDS: Atorvastatin Calcium 20 MG Tablet PO (20:59)
[2018-08-01] MEDS: Tolterodine Tartrate 4 MG CAP.SA PO (06:38)
[2018-08-01] MEDS: Menthol/Lanolin/Calamine/Znox 113 GM Tube 1 APPLIC TOPICAL ×3 (06:38→22:01)
[2018-08-01] MEDS: APIXABAN 5 MG TABLET PO ×2 (06:39→16:37)
[2018-08-01] MEDS: Aspirin E.C. 81 MG Tablet PO (06:39)
[2018-08-01] MEDS: Senna/Docusate Sodium 1 Tablet PO ×2 (06:40→16:37)
[2018-08-01] MEDS: Furosemide 40 MG Tablet PO (06:40)
[2018-08-01] MEDS: Nystatin Powder 15gm Bottle 1 APPLIC TOPICAL ×2 (06:40→21:00)
[2018-08-01] MEDS: Acetaminophen 500 MG Tablet 1000 MG PO ×2 (06:42→21:00)
[2018-08-01] MEDS: Lisinopril 5 MG Tablet PO (06:42)
[2018-08-01] MEDS: LINAGLIPTIN 5 MG TABLET PO (06:44)
[2018-08-01 06:56] LABS: Bedside Glucose 262 mg/dL (70-110)
[2018-08-01] MEDS: Glimepiride 4 MG Tablet PO ×2 (08:02→16:37)
[2018-08-01] MEDS: Pioglitazone Hydrochloride 30 MG Tablet PO (08:02)
[2018-08-01] MEDS: Amox/Clavulanate 500 MG Tablet PO ×2 (08:03→16:37)
[2018-08-01] MEDS: metFORMIN HCl 1,000 MG Tablet 1000 MG PO ×2 (08:04→16:36)
[2018-08-01] MEDS: Iron Polysaccharide Complex 150 MG CAPSULE PO (08:04)
[2018-08-01 10:51] LABS: Bedside Glucose 305 mg/dL (70-110)
--- NOTE | 2018-08-01 15:19 | MDS.RN ---
Information for the mds was obtained from review of the clinical record, interview of resident, staff, and direct observation of resident's care.
[2018-08-01 15:45] VITALS: BP 95/57; PULSE 74; RESP 16; TEMP 36.4; O2SAT 95
[2018-08-01 16:45] LABS: Bedside Glucose 296 mg/dL (70-110)
[2018-08-01] MEDS: Collagenase 30gm Tube 1 APPLIC TOPICAL (20:59)
[2018-08-01] MEDS: Atorvastatin Calcium 20 MG Tablet PO (21:01)
[2018-08-01 21:16] LABS: Bedside Glucose 243 mg/dL (70-110)
--- NOTE | 2018-08-01 21:22 | PCM.PROGNOTE ---
Patient Problems: Active and Suspected Problems (Last Reviewed 07/24/18 @ 11:41 by Robin Kimble MD) Debility (Acute) Left hip pain (Acute) E. coli UTI (Acute) Peripheral vascular disease (Suspected) Subjective: This 83-year-old female was seen bedside this evening for follow-up of bilateral foot and leg ulcers. She was also treated last week with an oral antibiotic for cellulitis to the right leg ulcer site. She denies fever, chill, nausea, vomiting, pain. She is Her dressing is intact as advised. - Physical Exam General: Alert, Oriented x3, Cooperative Extremities: No cyanosis, Capillary Refill Less than 3 Seconds, No Calf Tenderness - negative lori and becerra signs bilateral, Diminished Peripheral Pulses, Edema - bilateral lower extremities moderate Skin: Ulcer/ Wound - no purulence, no erythema, no streaking, no infection noted. erythema resolved right ulcer site on leg. The dorsal right hallux ulcer has resolved cellulitis is well and there is no exposed bone. There is a dry well adherent eschar to the tip of the distal nail bed and this is not boggy. The peripheral skin is hairless and atrophic bilateral., - - Ulcer locations include right medial lower leg with granular and fibrous base, dorsal right hallux nail bed with granular fibrous and eschar base, left plantar medial midfoot ulcer site has decreased in size and is fibrous and granular, left dorsal hallux ulcer site is 100% fibrous, and left leg ulcer is granular and fibrous Musculoskeletal: No Tenderness to Palpation of Joints or Extremities, Muscle Wasting, Tenderness - Tenderness with manipulation to all ulcer sites Neurological: Sensory exam intact to light touch and pain Psych/Mental Status: Normal Affect, Appropriate Vital Signs Temp Pulse Resp BP Pulse Ox 97.6 F L 74 16 95/57 L 95 08/01/18 15:45 08/01/18 15:45 08/01/18 15:45 08/01/18 15:45 08/01/18 15:45 Oxygen Delivery Method Room Air Weight: 68.152 kg Body Mass Index (BMI) 28.7 Finger Stick Blood Glucose 394 Intake and Output for Last 24 Hours 07/30/18 07/31/18 08/01/18 23:59 23:59 23:59 Intake Total 1580 / 1580 1010 / 1010 1200 / 1200 Balance 1580 / 1580 1010 / 1010 1200 / 1200 Microbiology Past 72 Hours 07/27/18 10:22 Gram Stain - Final Wound - Leg, Right Wound Culture - Final Staphylococcus aureus Anaerobic Culture - Final No anaerobic bacteria isolated. POC Glucose 08/01/18 08/01/18 08/01/18 21:09 16:43 10:41 POC Glucose 243 H 296 H 305 H 08/01/18 06:37 POC Glucose 262 H Medical Necessity - Tobacco Use Smoking Status: Never smoker Tobacco Use: Non-smoker Assessment/Plan All Active Problems (Last Reviewed 07/24/18 @ 11:41 by Robin Kimble MD) Debility (Acute) Left hip pain (Acute) E. coli UTI (Acute) Acute cystitis (Acute) E. coli infection (Acute) Fall (Acute) Weakness (Acute) Hyperglycemia (Acute) Pressure ulcer of left foot, stage 3 (Ruled-out) Ulcer right hallux healing - no evidence of infection Cellulitis leg, right - resolved Bilateral lower extremity ulcerations Venous insufficiency bilateral lower extremities Peripheral arterial disease w/ small vessel disease Delayed healing Uncontrolled diabetes with neuropathy Malnutrition suspected Fall risk Other comorbidities Continue Santyl application all ulcer sites daily. This was performed during the visit today. Keep ulcers offloaded. Keep heels padded and offloaded. Continue with compression therapy bilateral lower extremity. Dr. Kimble from vascular surgery is following patient as well for her vascular disease. No evidence of acute vascular issues at this time. She was advised to follow up in the outpatient setting in one month. Input is appreciated. To continue nutritional supplementation to optimize healing. The podiatry team will continue to follow her while in house. Please do not hesitate to call if you have any questions. Lilli West DPM, F[facility] [phone]
[2018-08-01 22:00] VITALS: PULSE 70; RESP 18; O2SAT 96
[2018-08-02] MEDS: Acetaminophen 500 MG Tablet 1000 MG PO ×2 (03:05→20:16)
[2018-08-02] MEDS: Furosemide 40 MG Tablet PO (05:10)
[2018-08-02] MEDS: Aspirin E.C. 81 MG Tablet PO (05:10)
[2018-08-02] MEDS: Tolterodine Tartrate 4 MG CAP.SA PO (05:10)
[2018-08-02] MEDS: Senna/Docusate Sodium 1 Tablet PO (05:10)
[2018-08-02] MEDS: Nystatin Powder 15gm Bottle 1 APPLIC TOPICAL ×2 (05:10→20:12)
[2018-08-02] MEDS: Lisinopril 5 MG Tablet PO (05:10)
[2018-08-02] MEDS: APIXABAN 5 MG TABLET PO ×2 (05:10→16:34)
[2018-08-02] MEDS: Menthol/Lanolin/Calamine/Znox 113 GM Tube 1 APPLIC TOPICAL ×3 (05:11→20:12)
[2018-08-02] MEDS: LINAGLIPTIN 5 MG TABLET PO (05:13)
[2018-08-02 06:18] LABS: Absolute Lymphocyte Count 1.57 X10^3/ul (0.83-4.51); Absolute Neutrophil Count 2.5 X10^3/uL (2.0-7.7); Basophil# 0.02 X10^3/uL; Basophil% 0.4 % (0-1); Eosinophil# 0.12 X10^3/uL; Eosinophils% 2.6 % (0-5); Hematocrit 33.5 % (37-47); Hemoglobin 10.5 g/dl (12.0-15.0); Lymphocyte # 1.57 X10^3/ul (4.0); Lymphocyte % 33.8 % (19-41); Mean Corp Hgb Conc 31.3 g/gl (32-36); Mean Corpuscular Hgb 27.8 pg (27.0-32.0); Mean Corpuscular Volume 88.6 fL (81-99); Mean Platelet Vol. 9.8 fl (6.2-12.0); Monocyte# 0.41 X10^3/uL; Monocyte% 8.8 % (0-10); Platelet Count 301 K/mm3 (150-450); RBC Distribution Width CV 16.4 % (11.6-14.6); RBC Distribution Width SD 52.9 fl (35.1-43.9); Red Blood Count 3.78 M/mm3 (4.2-5.4); White Blood Count 4.6 K/mm3 (4.4-11.0)
[2018-08-02 06:24] LABS: POSITIVE COUNT NO; POSITIVE DIFFERENTIAL NO; POSITIVE MORPHOLOGY NO
[2018-08-02 06:39] LABS: Anion Gap 7 (5-15); BUN 28 mg/dL (7-18); BUN/Creat Ratio 52.9 RATIO (10-20); Calcium,Total 8.4 mg/dL (8.5-10.1); Chloride 100 mmol/L (98-107); Creatinine, Serum 0.53 mg/dL (0.55-1.02); EST Glomerular Filtration Rate 118 mL/min (>60); Est Glom Filt Rate - Afr Amer 143 mL/min (>60); Estimated Creatinine Clearance 33.29 ml/min; Glucose 93 mg/dL (74-106); Potassium 4.4 mmol/L (3.5-5.1); Sodium Level 136 mmol/L (136-145)
[2018-08-02 06:51] LABS: Bedside Glucose 122 mg/dL (70-110)
[2018-08-02 07:00] VITALS: PULSE 74; RESP 16; O2SAT 97
[2018-08-02] MEDS: Pioglitazone Hydrochloride 30 MG Tablet PO (07:49)
[2018-08-02] MEDS: Iron Polysaccharide Complex 150 MG CAPSULE PO (07:49)
[2018-08-02] MEDS: metFORMIN HCl 1,000 MG Tablet 1000 MG PO ×2 (07:49→16:34)
[2018-08-02] MEDS: Glimepiride 4 MG Tablet PO ×2 (07:50→16:34)
[2018-08-02] MEDS: Amox/Clavulanate 500 MG Tablet PO ×2 (07:50→16:34)
[2018-08-02 11:46] LABS: Bedside Glucose 316 mg/dL (70-110)
[2018-08-02] MEDS: Collagenase 30gm Tube 1 APPLIC TOPICAL (15:13)
[2018-08-02 15:16] VITALS: BP 114/37; PULSE 72; RESP 16; TEMP 36.6; O2SAT 97
[2018-08-02 16:50] LABS: Bedside Glucose 226 mg/dL (70-110)
[2018-08-02] MEDS: Atorvastatin Calcium 20 MG Tablet PO (20:13)
[2018-08-02 20:56] LABS: Bedside Glucose 233 mg/dL (70-110)
[2018-08-03] MEDS: Acetaminophen 500 MG Tablet 1000 MG PO ×2 (04:15→21:14)
[2018-08-03] MEDS: LINAGLIPTIN 5 MG TABLET PO (04:16)
[2018-08-03] MEDS: Nystatin Powder 15gm Bottle 1 APPLIC TOPICAL ×2 (04:16→21:10)
[2018-08-03] MEDS: Menthol/Lanolin/Calamine/Znox 113 GM Tube 1 APPLIC TOPICAL ×3 (04:17→21:10)
[2018-08-03] MEDS: Tolterodine Tartrate 4 MG CAP.SA PO (04:17)
[2018-08-03] MEDS: APIXABAN 5 MG TABLET PO ×2 (04:17→17:41)
[2018-08-03] MEDS: Lisinopril 5 MG Tablet PO (04:18)
[2018-08-03] MEDS: Aspirin E.C. 81 MG Tablet PO (04:19)
[2018-08-03 06:51] LABS: Bedside Glucose 126 mg/dL (70-110)
[2018-08-03] MEDS: metFORMIN HCl 1,000 MG Tablet 1000 MG PO ×2 (07:44→17:41)
[2018-08-03] MEDS: Glimepiride 4 MG Tablet PO ×2 (07:45→17:41)
[2018-08-03] MEDS: Iron Polysaccharide Complex 150 MG CAPSULE PO (07:45)
[2018-08-03] MEDS: Amox/Clavulanate 500 MG Tablet PO ×2 (07:45→17:41)
[2018-08-03] MEDS: Pioglitazone Hydrochloride 30 MG Tablet PO (07:45)
[2018-08-03 10:00] VITALS: PULSE 70; RESP 18; O2SAT 97
--- NOTE | 2018-08-03 10:02 | NURSING ---
THIS NURSE CHANGED PT DRESSINGS AND LOTION PT LEGS AND FEET. PT TOLERATED WELL.
[2018-08-03 12:10] LABS: Bedside Glucose 222 mg/dL (70-110)
[2018-08-03] MEDS: Collagenase 30gm Tube 1 APPLIC TOPICAL (13:41)
[2018-08-03 16:00] VITALS: BP 131/82; PULSE 69; RESP 16; TEMP 36.8; O2SAT 95
[2018-08-03 17:11] LABS: Bedside Glucose 175 mg/dL (70-110)
[2018-08-03] MEDS: Atorvastatin Calcium 20 MG Tablet PO (21:08)
[2018-08-03 21:16] LABS: Bedside Glucose 260 mg/dL (70-110)
[2018-08-04] MEDS: Acetaminophen 500 MG Tablet 1000 MG PO ×2 (03:21→19:58)
[2018-08-04] MEDS: Nystatin Powder 15gm Bottle 1 APPLIC TOPICAL ×2 (05:55→19:48)
[2018-08-04] MEDS: APIXABAN 5 MG TABLET PO ×2 (05:56→17:03)
[2018-08-04] MEDS: LINAGLIPTIN 5 MG TABLET PO (05:56)
[2018-08-04] MEDS: Lisinopril 5 MG Tablet PO (05:56)
[2018-08-04] MEDS: Menthol/Lanolin/Calamine/Znox 113 GM Tube 1 APPLIC TOPICAL ×3 (05:56→19:48)
[2018-08-04] MEDS: Senna/Docusate Sodium 1 Tablet PO ×2 (05:56→17:03)
[2018-08-04] MEDS: Aspirin E.C. 81 MG Tablet PO (05:57)
[2018-08-04] MEDS: Tolterodine Tartrate 4 MG CAP.SA PO (05:57)
[2018-08-04 06:46] LABS: Bedside Glucose 136 mg/dL (70-110)
[2018-08-04] MEDS: Amox/Clavulanate 500 MG Tablet PO ×2 (07:45→17:03)
[2018-08-04] MEDS: Pioglitazone Hydrochloride 30 MG Tablet PO (07:45)
[2018-08-04] MEDS: Glimepiride 4 MG Tablet PO ×2 (07:45→17:03)
[2018-08-04] MEDS: Iron Polysaccharide Complex 150 MG CAPSULE PO (07:45)
[2018-08-04] MEDS: metFORMIN HCl 1,000 MG Tablet 1000 MG PO ×2 (07:46→17:03)
[2018-08-04 10:30] VITALS: PULSE 71; RESP 18; O2SAT 97
[2018-08-04 11:36] LABS: Bedside Glucose 232 mg/dL (70-110)
[2018-08-04] MEDS: Collagenase 30gm Tube 1 APPLIC TOPICAL (12:32)
[2018-08-04 14:54] VITALS: BP 140/65; PULSE 68; RESP 24; TEMP 36.4; O2SAT 99
--- NOTE | 2018-08-04 15:11 | NURSING ---
DRESSINGS CHANGED TO PT LEGS,FEET AND BIG TOES BY THIS NURSE. PT TOLERATED WELL. NO S/S OF INFECTION. NO COMPLAINTS OR CONCERNS AT THIS TIME.
[2018-08-04 17:40] LABS: Bedside Glucose 224 mg/dL (70-110)
[2018-08-04] MEDS: Atorvastatin Calcium 20 MG Tablet PO (19:48)
[2018-08-04 21:05] LABS: Bedside Glucose 227 mg/dL (70-110)
[2018-08-05] MEDS: Acetaminophen 500 MG Tablet 1000 MG PO ×2 (05:46→21:37)
[2018-08-05] MEDS: Senna/Docusate Sodium 1 Tablet PO ×2 (05:47→17:29)
[2018-08-05] MEDS: LINAGLIPTIN 5 MG TABLET PO (05:47)
[2018-08-05] MEDS: Lisinopril 5 MG Tablet PO (05:47)
[2018-08-05] MEDS: Tolterodine Tartrate 4 MG CAP.SA PO (05:47)
[2018-08-05] MEDS: Aspirin E.C. 81 MG Tablet PO (05:47)
[2018-08-05] MEDS: APIXABAN 5 MG TABLET PO ×2 (05:47→17:29)
[2018-08-05] MEDS: Nystatin Powder 15gm Bottle 1 APPLIC TOPICAL ×2 (05:55→21:30)
[2018-08-05] MEDS: Menthol/Lanolin/Calamine/Znox 113 GM Tube 1 APPLIC TOPICAL ×3 (05:56→21:29)
[2018-08-05 07:16] LABS: Bedside Glucose 196 mg/dL (70-110)
[2018-08-05] MEDS: Glimepiride 4 MG Tablet PO ×2 (08:13→17:29)
[2018-08-05] MEDS: Pioglitazone Hydrochloride 30 MG Tablet PO (08:13)
[2018-08-05] MEDS: metFORMIN HCl 1,000 MG Tablet 1000 MG PO ×2 (08:13→17:29)
[2018-08-05] MEDS: Iron Polysaccharide Complex 150 MG CAPSULE PO (08:14)
[2018-08-05 11:25] LABS: Bedside Glucose 347 mg/dL (70-110)
[2018-08-05] MEDS: Collagenase 30gm Tube 1 APPLIC TOPICAL (15:05)
--- NOTE | 2018-08-05 15:50 | NURSING ---
wound photo: right medial lower leg
--- NOTE | 2018-08-05 15:50 | NURSING ---
wound photo: right great toe
--- NOTE | 2018-08-05 15:51 | NURSING ---
wound photo: right heel
--- NOTE | 2018-08-05 15:51 | NURSING ---
wound photo: left medial foot
--- NOTE | 2018-08-05 15:52 | NURSING ---
wound photo: left medial lower leg
--- NOTE | 2018-08-05 15:52 | NURSING ---
wound photo: left great toe
--- NOTE | 2018-08-05 15:53 | NURSING ---
wound photo: left heel
[2018-08-05 16:00] VITALS: BP 127/66; PULSE 72; RESP 18; TEMP 36.8; O2SAT 96
[2018-08-05 17:05] LABS: Bedside Glucose 244 mg/dL (70-110)
[2018-08-05 21:11] LABS: Bedside Glucose 231 mg/dL (70-110)
[2018-08-05] MEDS: Atorvastatin Calcium 20 MG Tablet PO (21:33)
[2018-08-05 21:40] VITALS: PULSE 78; RESP 18; O2SAT 98
[2018-08-06] MEDS: Menthol/Lanolin/Calamine/Znox 113 GM Tube 1 APPLIC TOPICAL ×3 (03:47→21:09)
[2018-08-06] MEDS: Acetaminophen 500 MG Tablet 1000 MG PO ×2 (03:47→23:19)
[2018-08-06] MEDS: LINAGLIPTIN 5 MG TABLET PO (03:49)
[2018-08-06] MEDS: Senna/Docusate Sodium 1 Tablet PO ×2 (03:49→17:12)
[2018-08-06] MEDS: Tolterodine Tartrate 4 MG CAP.SA PO (03:49)
[2018-08-06] MEDS: APIXABAN 5 MG TABLET PO ×2 (03:49→18:21)
[2018-08-06] MEDS: Aspirin E.C. 81 MG Tablet PO (03:49)
[2018-08-06] MEDS: Lisinopril 5 MG Tablet PO (03:49)
[2018-08-06 06:40] LABS: Bedside Glucose 91 mg/dL (70-110)
[2018-08-06] MEDS: Nystatin Powder 15gm Bottle 1 APPLIC TOPICAL ×2 (07:37→21:09)
[2018-08-06 07:43] VITALS: PULSE 72; RESP 16; O2SAT 96
[2018-08-06] MEDS: metFORMIN HCl 1,000 MG Tablet 1000 MG PO ×2 (07:57→17:12)
[2018-08-06] MEDS: Pioglitazone Hydrochloride 30 MG Tablet PO (07:57)
[2018-08-06] MEDS: Iron Polysaccharide Complex 150 MG CAPSULE PO (07:57)
[2018-08-06] MEDS: Glimepiride 4 MG Tablet PO ×2 (07:57→17:12)
--- NOTE | 2018-08-06 09:27 | CASEMGMT ---
Brief interview for mental status (BIMS) and resident mood interview (PHQ-9) completed on this day. BIMS score 15/15. PHQ-9 score
--- NOTE | 2018-08-06 09:30 | CASEMGMT ---
Social Work Spoke resident in room. This director social welfare communicating to resident that discharge date has been set for 08/10/18 and that team is recommending for resident to transition to an extended care facility. Resident is agreeable to discharge date but not agreeable to recommendation. Resident plans to discharge to home alone at time of discharge. This director social welfare then inquiring if resident would be open to home health care (P.T/O.T./S.N/S.W.), resident declining home health care referral reporting to be planning to follow up with the wound center for wound care management. This director social welfare acknowledging with resident that resident wound care is currently daily. Resident reporting that the wound is healing and that I won't need daily dressing changes at discharge. This director social welfare communicating that the current doctor's orders in daily dressing changes. Resident nodding head with agreement but verbalizing no more on the subject. Resident reporting to have transportation home and to have meals in the home. Resident declining for this director social welfare to set up a medical alert systems for resident. Resident also reporting to have needed durable medical equipment already set up within the home. Resident was agreeable to this director social welfare providing resident with list of private duty aides to come into the home to assist with cleaning. Resident aware that private duty is private pay and is declining a Medicaid application at this time. Resident voicing no needs at time of discharge. Resident request to follow up with the wound center was communicated to the RN. Support given. Note: Resident family did express concern with resident discharging to home alone and commented that resident home is in disrepair. Telephone call to Adult protective servicesKathie. Voicemail left with above concerns. Proposed discharge date: 08/10/18 PLAN: Discharge to home alone and follow up with wound center. Amor Garcia, PSS DELIVERY PROFESSIONAL, NUCLEAR DESIGN ENGINEER
[2018-08-06 10:56] LABS: Bedside Glucose 185 mg/dL (70-110)
--- NOTE | 2018-08-06 13:08 | NURSING ---
Message left with wound clinic to set up appointment for patient after discharge.
[2018-08-06] MEDS: Collagenase 30gm Tube 1 APPLIC TOPICAL (13:28)
[2018-08-06 15:25] VITALS: BP 117/66; PULSE 70; RESP 18; TEMP 36.6; O2SAT 96
[2018-08-06 17:06] LABS: Bedside Glucose 239 mg/dL (70-110)
[2018-08-06 20:56] LABS: Bedside Glucose 227 mg/dL (70-110)
[2018-08-06] MEDS: Atorvastatin Calcium 20 MG Tablet PO (21:10)
--- NOTE | 2018-08-06 21:22 | DCINST_ITS ---
- Discharge Diagnoses Current Active Problems: Current Active and Chronic Problems (Last Reviewed 07/24/18 @ 11:41 by Robin Kimble MD) Cellulitis of right leg (Acute) Debility (Acute) Left hip pain (Acute) E. 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) Hallux valgus (acquired), right foot (Chronic) You will use the following diet at home:: No restrictions, Regular Your food should be the consistency of: Regular Your liquids should be the consistency of: Regular/Thin Discharge Activity: Return to Normal Activity, May Shower, Use Walker Weight Bearing Status: Weight bearing as tolerated Call your doctor if you observe: Fever of 101 or Higher, Inability to urinate, Inability to have a bowel movement, Shortness of breath, Chest pain, Uncontrolled pain Allergies/Adverse Reactions: Allergies No Known Allergies Allergy (Verified 07/08/18 16:39) Medications to take at Discharge metformin 1,000 mg tablet 1,000 mg PO BIDCM 0 Days 03/15/18 Apixaban [Eliquis] 5 mg PO BID 07/08/18 Atorvastatin Calcium 20 mg PO DAILY 07/08/18 Lisinopril [Zestril] 5 mg PO DAILY 07/08/18 Tolterodine Tartrate [Tolterodine Tartrate ER] 4 mg PO DAILY 07/08/18 Acetaminophen [Tylenol] 1,000 mg PO Q6H PRN PRN tablet 08/06/18 Collagenase [Santyl] 1 applic TOPICAL DAILY@1400 #1 tube 08/06/18 Glimepiride [Amaryl] 4 mg PO BIDCM #60 tablet 08/06/18 Iron Polysaccharide Complex [Ferrex 150] 150 mg PO DAILYCM #30 capsule 08/06/18 Linagliptin [Tradjenta] 5 mg PO DAILY #30 tablet 08/06/18 Menthol [Bengay Vanishing Scent] 1 applic TOPICAL TID PRN PRN tube 08/06/18 Menthol/Lanolin/Calamine/Znox [Calmoseptine Ointment] 1 applic TOPICAL TID tube 08/06/18 Nutritional Supplement [Fer - ORANGE FLAVOR] 1 packet PO BIDCM #60 packet 08/06/18 Nystatin Powder [Mycostatin Powder] 1 applic TOPICAL 0600,2200 bottle 08/06/18 Pioglitazone [Actos] 30 mg PO DAILY@0800 #30 tablet 08/06/18 The following prescriptions were given: Collagenase [Santyl] 1 applic TOPICAL DAILY@1400 #1 tube Iron Polysaccharide Complex [Ferrex 150] 150 mg PO DAILYCM #30 capsule Linagliptin [Tradjenta] 5 mg PO DAILY #30 tablet Pioglitazone [Actos] 30 mg PO DAILY@0800 #30 tablet Glimepiride [Amaryl] 4 mg PO BIDCM #60 tablet Nutritional Supplement [Fer - ORANGE FLAVOR] 1 packet PO BIDCM #60 packet Primary Care Physician: Chad Chang MD [Primary Care Provider] - Please follow up with your Primary Care Physician in: 1 week. Test Results: Test results from this visit will be discussed in further detail at your follow- up appointment, if applicable. Please Follow Up With: Dina Reinoso MD When: [phone] [facility] Please Follow Up With: Robin Kimble MD When: 2 weeks. Please Follow Up With: Wound clinic When: 1 week. Proposed Discharge Date: 08/10/18
--- NOTE | 2018-08-06 21:24 | DS.PCM_ITS ---
Discharge Date and Diagnosis - Problem List Patient Problems: Active and Suspected Problems (Last Reviewed 07/24/18 @ 11:41 by Robin Kimble MD) Cellulitis of right leg (Acute) Debility (Acute) Left hip pain (Acute) E. coli UTI (Acute) Peripheral vascular disease (Suspected) Date of Admission: 07/11/18 Date of Discharge: 08/10/18 - Primary Discharge Diagnosis Active and Suspected Problems (Last Reviewed 07/24/18 @ 11:41 by Robin Kimble MD) Cellulitis of right leg (Acute) Debility (Acute) Left hip pain (Acute) E. 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) Hallux valgus (acquired), right foot (Chronic) Nonrheumatic mitral (valve) insufficiency (Chronic) Non-rheumatic tricuspid valve insufficiency (Chronic) HTN (hypertension) (Chronic) Anxiety and depression (Chronic) Ulcer of left lower extremity with fat layer exposed (Chronic) Venous insufficiency of both lower extremities (Chronic) Ulcer of right lower extremity with fat layer exposed (Chronic) Venous ulcers of both lower extremities (Chronic) Type 2 diabetes mellitus (Chronic) Paroxysmal atrial fibrillation (Chronic) Edema (Chronic) Dyspnea on exertion (Chronic) Shortness of breath (Chronic) History of aortic valve replacement with bioprosthetic valve (Chronic ~06/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 Postoperative changes of the first metatarsal with residual hallux valgus. 2. There is soft tissue swelling and ulceration of the hallux with small erosive changes of the proximal phalanx of the hallux that could represent sequela of osteomyelitis. Electronically Signed: Aminta Costa MD at 20:47 EST , Service support , Labs (Last 48 Hours) 08/05/18 08/05/18 08/05/18 07:04 11:19 16:59 POC Glucose 196 H 347 H 244 H 08/05/18 08/06/18 08/06/18 21:08 06:20 10:51 POC Glucose 231 H 91 185 H 08/06/18 08/06/18 17:00 20:53 POC Glucose 239 H 227 H Consultations 07/19/18 07:14 Consult: Onc/Wound/desktop support manager Routine Comment: Reason for Consult:: bilat heel redness Comments:: mepliex applied Operations: None Procedures: None Summary of Care Provided: The patient is a 83 year old Female with below past medical history significant for non-compliance with medical regimen, admitted to hospital for fall/debility secondary to E. Coli UTI, admitted to TCU with debility, here for rehabilitation, strengthening, prior to discharge home alone. Discharge home alone, follow up with wound center. Resident declined transition to extended care facility. Resident declined Home Health Services. Adult Protective Services notifed, home in disrepair. Risk of Readmission high, but resident has refused to follow medical advice. Patient Problems: Active and Suspected Problems (Last Reviewed 07/24/18 @ 11:41 by Robin Kimble MD) Cellulitis of right leg (Acute) Debility (Acute) Left hip pain (Acute) E. coli UTI (Acute) Peripheral vascular disease (Suspected) - Physical Exam Vital Signs Temp Pulse Resp BP Pulse Ox 97.9 F 70 18 117/66 96 08/06/18 15:25 08/06/18 15:25 08/06/18 15:25 08/06/18 15:25 08/06/18 15:25 Oxygen Delivery Method Room Air Weight: 67.727 kg Body Mass Index (BMI) 28.7 Finger Stick Blood Glucose 394 Intake and Output for Last 24 Hours 08/04/18 08/05/18 08/06/18 23:59 23:59 23:59 Intake Total 1190 / 1190 1140 / 1140 1540 / 1540 Balance 1190 / 1190 1140 / 1140 1540 / 1540 POC Glucose 08/06/18 08/06/18 08/06/18 20:53 17:00 10:51 POC Glucose 227 H 239 H 185 H 08/06/18 06:20 POC Glucose 91 Discharge Diet: No Restrictions Discharge Activity: Return to Normal Activity, May Shower, Use Walker Weight Bearing Status: Weight bearing as tolerated Call your doctor if you observe: Fever of 101 or Higher, Inability to urinate, Inability to have a bowel movement, Shortness of breath, Chest pain, Uncontrolled pain Home Medications: Medications to take at Discharge metformin 1,000 mg tablet 1,000 mg PO BIDCM 0 Days 03/15/18 Apixaban [Eliquis] 5 mg PO BID 07/08/18 Atorvastatin Calcium 20 mg PO DAILY 07/08/18 Lisinopril [Zestril] 5 mg PO DAILY 07/08/18 Tolterodine Tartrate [Tolterodine Tartrate ER] 4 mg PO DAILY 07/08/18 Acetaminophen [Tylenol] 1,000 mg PO Q6H PRN PRN tablet 08/06/18 Collagenase [Santyl] 1 applic TOPICAL DAILY@1400 #1 tube 08/06/18 Glimepiride [Amaryl] 4 mg PO BIDCM #60 tablet 08/06/18 Iron Polysaccharide Complex [Ferrex 150] 150 mg PO DAILYCM #30 capsule 08/06/18 Linagliptin [Tradjenta] 5 mg PO DAILY #30 tablet 08/06/18 Menthol [Bengay Vanishing Scent] 1 applic TOPICAL TID PRN PRN tube 08/06/18 Menthol/Lanolin/Calamine/Znox [Calmoseptine Ointment] 1 applic TOPICAL TID tube 08/06/18 Nutritional Supplement [Fer - ORANGE FLAVOR] 1 packet PO BIDCM #60 packet 08/06/18 Nystatin Powder [Mycostatin Powder] 1 applic TOPICAL 0600,2200 bottle 08/06/18 Pioglitazone [Actos] 30 mg PO DAILY@0800 #30 tablet 08/06/18 Following Prescrptions Were Given to Patient: Collagenase [Santyl] 1 applic TOPICAL DAILY@1400 #1 tube Iron Polysaccharide Complex [Ferrex 150] 150 mg PO DAILYCM #30 capsule Linagliptin [Tradjenta] 5 mg PO DAILY #30 tablet Pioglitazone [Actos] 30 mg PO DAILY@0800 #30 tablet Glimepiride [Amaryl] 4 mg PO BIDCM #60 tablet Nutritional Supplement [Fer - ORANGE FLAVOR] 1 packet PO BIDCM #60 packet Primary Care Physician: Chad Chang MD [Primary Care Provider] - Please follow up with your Primary Care Physician in: 1 week. Please Follow Up With: Dina Reinoso MD When: [phone] [facility] Please Follow Up With: Robin Kimble MD When: 2 weeks. Please Follow Up With: Wound clinic When: 1 week. Disposition: Home Minutes spent on discharge:: 35 Patient Condition:: Guarded Medical Necessity - Tobacco Use Smoking Status: Never smoker Tobacco Use: Non-smoker Meaningful Use Info Meaningful Use Diagnoses (Choose all that apply): None applicable
[2018-08-07] MEDS: Menthol/Lanolin/Calamine/Znox 113 GM Tube 1 APPLIC TOPICAL ×3 (04:47→19:26)
[2018-08-07] MEDS: Nystatin Powder 15gm Bottle 1 APPLIC TOPICAL ×2 (04:48→19:27)
[2018-08-07] MEDS: Polyethylene Glycol 3350 17 GM PACKET PO (04:49)
[2018-08-07] MEDS: Lisinopril 5 MG Tablet PO (04:50)
[2018-08-07] MEDS: Senna/Docusate Sodium 1 Tablet PO (04:50)
[2018-08-07] MEDS: Tolterodine Tartrate 4 MG CAP.SA PO (04:50)
[2018-08-07] MEDS: LINAGLIPTIN 5 MG TABLET PO (04:50)
[2018-08-07] MEDS: Aspirin E.C. 81 MG Tablet PO (04:50)
[2018-08-07] MEDS: APIXABAN 5 MG TABLET PO ×2 (04:51→16:55)
[2018-08-07 06:41] LABS: Bedside Glucose 82 mg/dL (70-110)
[2018-08-07] MEDS: metFORMIN HCl 1,000 MG Tablet 1000 MG PO ×2 (07:44→16:55)
[2018-08-07] MEDS: Pioglitazone Hydrochloride 30 MG Tablet PO (07:44)
[2018-08-07] MEDS: Iron Polysaccharide Complex 150 MG CAPSULE PO (07:44)
[2018-08-07] MEDS: Glimepiride 4 MG Tablet PO ×2 (07:44→16:55)
[2018-08-07 11:55] LABS: Bedside Glucose 210 mg/dL (70-110)
[2018-08-07] MEDS: Collagenase 30gm Tube 1 APPLIC TOPICAL (14:30)
--- NOTE | 2018-08-07 14:54 | NURSING ---
DRESSINGS CHANGED BY THIS NURSE. NO S/S OF INFECTION PT TOLERATED WELL.
[2018-08-07 15:08] VITALS: BP 148/45; PULSE 74; RESP 18; TEMP 36.8; O2SAT 100
[2018-08-07 16:46] LABS: Bedside Glucose 164 mg/dL (70-110)
--- NOTE | 2018-08-07 16:50 | PCM.PROGNOTE ---
Patient Problems: Active and Suspected Problems (Last Reviewed 07/24/18 @ 11:41 by Robin Kimble MD) Cellulitis of right leg (Acute) Debility (Acute) Left hip pain (Acute) E. coli UTI (Acute) Peripheral vascular disease (Suspected) Subjective: This 83-year-old female was seen bedside for follow-up of bilateral foot and leg ulcers. She was also treated previously with an oral antibiotic for cellulitis to the right leg ulcer site. This has since resolved. Patient is doing well. She denies fever, chill, nausea, vomiting, pain. Her dressing is intact and ulcer sites offloaded. - Physical Exam General: Alert, Oriented x3, Cooperative Extremities: No cyanosis, Capillary Refill Less than 3 Seconds, No Calf Tenderness - negative lori and becerra signs bilateral, Diminished Peripheral Pulses, Edema - slight lower extremity edema noted Skin: Ulcer/ Wound - Dressing change was just completed by Marquita Self prior to entering the room. She advised me that she took photos two days ago and that the sites continue to improve and look very good. There is no purulence, erythema/cellulitis, drainage, malodor, or increase in warmth to any of the ulcer site areas. Still eshcar to distal right hallux that remains hard and intact with no surrounding bogginess. Musculoskeletal: No Tenderness to Palpation of Joints or Extremities, Muscle Wasting, Tenderness - some tenderness with manipulation of ulcersites over dressing. Neurological: Sensory exam intact to light touch and pain Psych/Mental Status: Normal Affect, Appropriate Vital Signs Temp Pulse Resp BP Pulse Ox 98.2 F 74 18 148/45 H 100 08/07/18 15:08 08/07/18 15:08 08/07/18 15:08 08/07/18 15:08 08/07/18 15:08 Oxygen Delivery Method Room Air Weight: 67.727 kg Body Mass Index (BMI) 28.7 Finger Stick Blood Glucose 394 Intake and Output for Last 24 Hours 08/05/18 08/06/18 08/07/18 23:59 23:59 23:59 Intake Total 1140 / 1140 1660 / 1660 1080 / 1080 Balance 1140 / 1140 1660 / 1660 1080 / 1080 POC Glucose 08/07/18 08/07/18 08/07/18 16:44 11:40 06:32 POC Glucose 164 H 210 H 82 08/06/18 08/06/18 20:53 17:00 POC Glucose 227 H 239 H Medical Necessity - Tobacco Use Smoking Status: Never smoker Tobacco Use: Non-smoker Assessment/Plan All Active Problems (Last Reviewed 07/24/18 @ 11:41 by Robin Kimble MD) Cellulitis of right leg (Acute) Debility (Acute) Left hip pain (Acute) E. coli UTI (Acute) Acute cystitis (Acute) E. coli infection (Acute) Fall (Acute) Weakness (Acute) Hyperglycemia (Acute) Pressure ulcer of left foot, stage 3 (Ruled-out) Ulcer right hallux healing - no evidence of infection Cellulitis leg, right - resolved Bilateral lower extremity ulcerations Venous insufficiency bilateral lower extremities Peripheral arterial disease w/ small vessel disease Delayed healing Uncontrolled diabetes with neuropathy Malnutrition suspected Fall risk Other comorbidities Continue Santyl application all ulcer sites daily. This was performed by Marquita Self just before my arrival earlier today. I did not take the dressing back down for this reason. She assured me the sites continue to show good improvement with no signs of infection. Keep ulcers offloaded. Keep heels padded and offloaded. Continue with compression therapy bilateral lower extremity. Dr. Kimble from vascular surgery is following patient as well for her vascular disease. No evidence of acute vascular issues at this time. She was advised to follow up in the outpatient setting in one month. To continue nutritional supplementation to optimize healing. The podiatry team will continue to follow her while in house. She tells me her planned discharge will be Sunday. Once discharged she will follow up at wound healing center with Dr. West according to patient.
[2018-08-07] MEDS: Atorvastatin Calcium 20 MG Tablet PO (19:28)
[2018-08-07 19:31] VITALS: PULSE 75; RESP 18; O2SAT 92
[2018-08-07 21:06] LABS: Bedside Glucose 250 mg/dL (70-110)
[2018-08-07] MEDS: Acetaminophen 500 MG Tablet 1000 MG PO (23:11)
[2018-08-08] MEDS: Tolterodine Tartrate 4 MG CAP.SA PO (05:04)
[2018-08-08] MEDS: Aspirin E.C. 81 MG Tablet PO (05:04)
[2018-08-08] MEDS: Menthol/Lanolin/Calamine/Znox 113 GM Tube 1 APPLIC TOPICAL ×3 (05:05→20:28)
[2018-08-08] MEDS: Lisinopril 5 MG Tablet PO (05:05)
[2018-08-08] MEDS: LINAGLIPTIN 5 MG TABLET PO (05:05)
[2018-08-08] MEDS: Senna/Docusate Sodium 1 Tablet PO ×2 (05:05→17:01)
[2018-08-08] MEDS: APIXABAN 5 MG TABLET PO ×2 (05:05→17:01)
[2018-08-08] MEDS: Nystatin Powder 15gm Bottle 1 APPLIC TOPICAL ×2 (05:06→20:29)
[2018-08-08 06:41] LABS: Bedside Glucose 156 mg/dL (70-110)
[2018-08-08] MEDS: Iron Polysaccharide Complex 150 MG CAPSULE PO (07:54)
[2018-08-08] MEDS: metFORMIN HCl 1,000 MG Tablet 1000 MG PO ×2 (07:54→17:01)
[2018-08-08] MEDS: Pioglitazone Hydrochloride 30 MG Tablet PO (07:54)
[2018-08-08] MEDS: Glimepiride 4 MG Tablet PO ×2 (07:55→17:01)
[2018-08-08 10:00] VITALS: PULSE 78; RESP 18; O2SAT 96
[2018-08-08 10:56] LABS: Bedside Glucose 229 mg/dL (70-110)
[2018-08-08] MEDS: Collagenase 30gm Tube 1 APPLIC TOPICAL (13:15)
[2018-08-08 15:22] VITALS: BP 120/57; PULSE 70; RESP 16; TEMP 36.8; O2SAT 99
[2018-08-08 17:00] LABS: Bedside Glucose 213 mg/dL (70-110)
[2018-08-08] MEDS: Atorvastatin Calcium 20 MG Tablet PO (20:30)
[2018-08-08] MEDS: Acetaminophen 500 MG Tablet 1000 MG PO (21:37)
[2018-08-08 21:45] LABS: Bedside Glucose 265 mg/dL (70-110)
[2018-08-09] MEDS: Menthol/Lanolin/Calamine/Znox 113 GM Tube 1 APPLIC TOPICAL ×3 (04:40→20:26)
[2018-08-09] MEDS: Nystatin Powder 15gm Bottle 1 APPLIC TOPICAL ×2 (04:41→20:24)
[2018-08-09] MEDS: Polyethylene Glycol 3350 17 GM PACKET PO (04:42)
[2018-08-09] MEDS: Aspirin E.C. 81 MG Tablet PO (04:43)
[2018-08-09] MEDS: APIXABAN 5 MG TABLET PO ×2 (04:43→16:36)
[2018-08-09] MEDS: Senna/Docusate Sodium 1 Tablet PO (04:43)
[2018-08-09] MEDS: LINAGLIPTIN 5 MG TABLET PO (04:43)
[2018-08-09] MEDS: Tolterodine Tartrate 4 MG CAP.SA PO (04:43)
[2018-08-09] MEDS: Lisinopril 5 MG Tablet PO (04:43)
[2018-08-09 05:53] LABS: Absolute Lymphocyte Count 1.65 X10^3/ul (0.83-4.51); Absolute Neutrophil Count 2.5 X10^3/uL (2.0-7.7); Basophil# 0.01 X10^3/uL; Basophil% 0.2 % (0-1); Eosinophil# 0.08 X10^3/uL; Eosinophils% 1.7 % (0-5); Hematocrit 35.4 % (37-47); Lymphocyte # 1.65 X10^3/ul (4.0); Lymphocyte % 34.8 % (19-41); Mean Corp Hgb Conc 31.1 g/gl (32-36); Mean Corpuscular Hgb 27.9 pg (27.0-32.0); Mean Corpuscular Volume 89.8 fL (81-99); Mean Platelet Vol. 10.3 fl (6.2-12.0); Monocyte# 0.51 X10^3/uL; Monocyte% 10.8 % (0-10); Neutrophil # 2.46 X10^3/uL (2.7-7.7); Neutrophil % 51.9 % (47-70); Platelet Count 286 K/mm3 (150-450); RBC Distribution Width CV 16.2 % (11.6-14.6); RBC Distribution Width SD 52.5 fl (35.1-43.9); Red Blood Count 3.94 M/mm3 (4.2-5.4); White Blood Count 4.7 K/mm3 (4.4-11.0)
[2018-08-09 05:55] LABS: POSITIVE COUNT NO; POSITIVE DIFFERENTIAL NO; POSITIVE MORPHOLOGY NO
[2018-08-09 06:11] LABS: Anion Gap 8 (5-15); BUN 24 mg/dL (7-18); BUN/Creat Ratio 49.1 RATIO (10-20); Calcium,Total 8.7 mg/dL (8.5-10.1); Chloride 97 mmol/L (98-107); Creatinine, Serum 0.49 mg/dL (0.55-1.02); EST Glomerular Filtration Rate 129 mL/min (>60); Est Glom Filt Rate - Afr Amer 156 mL/min (>60); Estimated Creatinine Clearance 33.29 ml/min; Glucose 121 mg/dL (74-106); Potassium 4.6 mmol/L (3.5-5.1); Sodium Level 135 mmol/L (136-145)
[2018-08-09 06:56] LABS: Bedside Glucose 134 mg/dL (70-110)
[2018-08-09] MEDS: Pioglitazone Hydrochloride 30 MG Tablet PO (08:08)
[2018-08-09] MEDS: Iron Polysaccharide Complex 150 MG CAPSULE PO (08:08)
[2018-08-09] MEDS: Glimepiride 4 MG Tablet PO ×2 (08:08→16:36)
[2018-08-09] MEDS: metFORMIN HCl 1,000 MG Tablet 1000 MG PO ×2 (08:08→16:36)
[2018-08-09 11:46] LABS: Bedside Glucose 437 mg/dL (70-110)
[2018-08-09 15:42] VITALS: BP 123/67; PULSE 78; RESP 20; TEMP 36.2; O2SAT 98
[2018-08-09 17:05] LABS: Bedside Glucose 252 mg/dL (70-110)
--- NOTE | 2018-08-09 17:25 | CASEMGMT ---
Social Work Resident requesting to speak with this social service assistant. This social service assistant meeting with resident in room. Resident now interested in information in regards to a Medical Alert system. This socia worker providing resident with information about different Medical Alert systems in the area as well as their contact numbers. Resident reporting to be planning to contact a medical alert system company to set up medical alert. Resident continues to plan to discharge to home alone and denies home health services again during this interaction. Proposed discharge date: 08/10/18 PLAN: Discharge to home alone. THERESA Manriquez, MW
[2018-08-09] MEDS: Atorvastatin Calcium 20 MG Tablet PO (20:24)
[2018-08-09 21:06] LABS: Bedside Glucose 273 mg/dL (70-110)
[2018-08-09] MEDS: Collagenase 30gm Tube 1 APPLIC TOPICAL (21:29)
[2018-08-09 21:53] VITALS: PULSE 78; RESP 16; O2SAT 96
[2018-08-09] MEDS: Acetaminophen 500 MG Tablet 1000 MG PO (23:28)
[2018-08-10] MEDS: Lisinopril 5 MG Tablet PO (05:17)
[2018-08-10] MEDS: Aspirin E.C. 81 MG Tablet PO (05:17)
[2018-08-10] MEDS: Tolterodine Tartrate 4 MG CAP.SA PO (05:17)
[2018-08-10] MEDS: LINAGLIPTIN 5 MG TABLET PO (05:17)
[2018-08-10] MEDS: APIXABAN 5 MG TABLET PO (05:17)
[2018-08-10] MEDS: Nystatin Powder 15gm Bottle 1 APPLIC TOPICAL (05:20)
[2018-08-10] MEDS: Menthol/Lanolin/Calamine/Znox 113 GM Tube 1 APPLIC TOPICAL (05:20)
[2018-08-10 07:16] LABS: Bedside Glucose 123 mg/dL (70-110)
[2018-08-10] MEDS: metFORMIN HCl 1,000 MG Tablet 1000 MG PO (08:17)
[2018-08-10] MEDS: Pioglitazone Hydrochloride 30 MG Tablet PO (08:17)
[2018-08-10] MEDS: Glimepiride 4 MG Tablet PO (08:17)
[2018-08-10] MEDS: Iron Polysaccharide Complex 150 MG CAPSULE PO (08:18)
[2018-08-10 10:30] VITALS: BP 138/64; PULSE 80; RESP 16; TEMP 36.6; O2SAT 95
== END 2018-08-10 10:45 | disposition home or self-care (01) | DRG 948 ==
PROVIDERS: Podiatrist; Admitting Provider Family Medicine Geriatric Medicine; Family Provider Family Medicine; PCP Family Medicine; Referring Provider Family Medicine Geriatric Medicine; Visit Provider Family Medicine Geriatric Medicine
DX: R53.81 Other malaise (principal); N30.00 Acute cystitis without hematuria; L97.912 Non-pressure chronic ulcer of unspecified part of right lower leg with fat layer exposed; L97.922 Non-pressure chronic ulcer of unspecified part of left lower leg with fat layer exposed; I25.10 Atherosclerotic heart disease of native coronary artery without angina pectoris; B96.20 Unspecified Escherichia coli [E. coli] as the cause of diseases classified elsewhere; Z91.19 Patient's noncompliance with other medical treatment and regimen; I48.0 Paroxysmal atrial fibrillation; E78.5 Hyperlipidemia, unspecified; N32.81 Overactive bladder; I10 Essential (primary) hypertension; E11.65 Type 2 diabetes mellitus with hyperglycemia; Z95.3 Presence of xenogenic heart valve; I27.20 Pulmonary hypertension, unspecified; I48.2 Chronic atrial fibrillation; K21.9 Gastro-esophageal reflux disease without esophagitis; B35.1 Tinea unguium; E11.42 Type 2 diabetes mellitus with diabetic polyneuropathy; E11.621 Type 2 diabetes mellitus with foot ulcer; E11.622 Type 2 diabetes mellitus with other skin ulcer; E11.51 Type 2 diabetes mellitus with diabetic peripheral angiopathy without gangrene; M20.10 Hallux valgus (acquired), unspecified foot; M21.611 Bunion of right foot; L97.522 Non-pressure chronic ulcer of other part of left foot with fat layer exposed
CPT/HCPCS: 36415; 73630; 80048; 82962; 85025; 87070; 87075; 87077; 87186; 87205; 97110; 97116; 97163; 97166; 97530; 97535; 97802

== ENCOUNTER 2018-08-15 11:40 | Outpatient (RCR) | payer MEDICARE, OTHER, SELFPAY ==
[2018-07-11 15:23] VITALS: BMI 28.7
[2018-07-20 00:55] VITALS: BP 165/75; PULSE 62; RESP 16; TEMP 36.2
[2018-08-15 10:52] VITALS: BP 144/83; PULSE 83; RESP 18; TEMP 36.6; BMI 28.7
--- NOTE | 2018-08-15 11:46 | PCM.WC.HP ---
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 Status: Chronic Current Visit: Yes Code(s): L97.512 - Non-pressure chronic ulcer of other part of right foot with fat layer exposed (2) Chronic ulcer of left foot with fat layer exposed Status: Chronic Current Visit: Yes Code(s): L97.522 - Non-pressure chronic ulcer of other part of left foot with fat layer exposed (3) Type 2 diabetes mellitus Status: Chronic Current Visit: Yes Qualifiers: Code(s): E11.9 - Type 2 diabetes mellitus without complications (4) Ulcer of right lower extremity with fat layer exposed Status: Chronic Current Visit: Yes Code(s): L97.912 - Non-pressure chronic ulcer of unspecified part of right lower leg with fat layer exposed (5) Venous insufficiency of both lower extremities Status: Chronic Current Visit: No Code(s): I87.2 - Venous insufficiency (chronic) (peripheral) History of Present Illness Chief Complaint: Bilateral lower extremity ulcers. Bilateral lower extremity swelling. History of Wound: Ms. Jovel is an 83-year-old who presents to the wound center due to nonhealing Bilateral lower extremity wounds/ulcers. She had been seen here over the last couple of months for recurrent and new bilateral lower extremity ulcers due to bilateral lower extremity swelling. She however had been admitted to the hospital and subsequently a jail due essentially to debility and failure to care for her self. She was discharged on 08/10. She has cared for her ulcer since discharge and has applied some product she recieved from the jail. She has also wrapped her lower extremity with silvia wraps. She presents with a new right great toe ulcer and denies any known precipitaing factor. She however staes that they applied betadine in the jail. She states her sugars are better controlled. She also denies chills, fever or feeling of unwell. 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 (Chronic) Uncontrolled diabetes mellitus (Chronic) Depression (Chronic) Anxiety (Chronic) Atrial fibrillation (Chronic) Overactive bladder (Chronic) Tinea unguium (Chronic) Type 2 diabetes mellitus with diabetic polyneuropathy (Chronic) Localized edema (Chronic) Ulcer of right lower extremity with fat layer exposed (Chronic) Ulcer of left lower extremity with fat layer exposed (Chronic) Chronic ulcer of left foot with fat layer exposed (Chronic) Hallux valgus (acquired), right foot (Chronic) Nonrheumatic mitral (valve) insufficiency (Chronic) Non-rheumatic tricuspid valve insufficiency (Chronic) HTN (hypertension) (Chronic) Anxiety and depression (Chronic) Ulcer of left lower extremity with fat layer exposed (Chronic) Venous insufficiency of both lower extremities (Chronic) Ulcer of right lower extremity with fat layer exposed (Chronic) Venous ulcers of both lower extremities (Chronic) Type 2 diabetes mellitus (Chronic) Paroxysmal atrial fibrillation (Chronic) Edema (Chronic) Dyspnea on exertion (Chronic) Shortness of breath (Chronic) History of aortic valve replacement with bioprosthetic valve (Chronic ~06/20/16) 23 mm Saint to trifecta GT valve in June 2016 at [facility]; Hyperlipidemia (Chronic) Pulmonary hypertension (Chronic) Surgical History: - Allergies/Adverse Reactions: Allergies No Known Allergies Allergy (Verified 07/08/18 16:39) Home Medications: Ambulatory Orders Medication Instructions Recorded metformin 1,000 mg tablet 1,000 mg PO BIDCM 0 Days 03/15/18 Apixaban [Eliquis] 5 mg PO BID 07/08/18 Atorvastatin Calcium 20 mg PO DAILY 07/08/18 Lisinopril [Zestril] 5 mg PO DAILY 07/08/18 Tolterodine Tartrate [Tolterodine 4 mg PO DAILY 07/08/18 Tartrate ER] Acetaminophen [Tylenol] 1,000 mg PO Q6H PRN PRN tablet 08/06/18 Collagenase [Santyl] 1 applic TOPICAL DAILY@1400 #1 tube 08/06/18 Glimepiride [Amaryl] 4 mg PO BIDCM #60 tablet 08/06/18 Iron Polysaccharide Complex 150 mg PO DAILYCM #30 capsule 08/06/18 [Ferrex 150] Linagliptin [Tradjenta] 5 mg PO DAILY #30 tablet 08/06/18 Menthol [Bengay Vanishing Scent] 1 applic TOPICAL TID PRN PRN tube 08/06/18 Menthol/Lanolin/Calamine/Znox 1 applic TOPICAL TID tube 08/06/18 [Calmoseptine Ointment] Nutritional Supplement [Fer - 1 packet PO BIDCM #60 packet 08/06/18 ORANGE FLAVOR] Nystatin Powder [Mycostatin Powder] 1 applic TOPICAL 0600,2200 bottle 08/06/18 Pioglitazone [Actos] 30 mg PO DAILY@0800 #30 tablet 08/06/18 - Family History Paternal Family History: Family History (Last Reviewed 07/24/18 @ 11:42 by Robin Kimble MD) Father CAD (coronary artery disease) Mother CAD (coronary artery disease) Dementia, Heart Disease Maternal Family History: Family History (Last Reviewed 07/24/18 @ 11:42 by Robin Kimble MD) Father CAD (coronary artery disease) Mother CAD (coronary artery disease) Heart Disease Smoking Status: Never smoker Review of Systems Constitutional: Denies: Anorexia, Chills, Fever Eyes: Denies: Blurred vision, Pain HEENT: Denies: Difficulty Swallowing Cardiovascular: Denies: Chest Pain, Chest Tightness Respiratory: Denies: Hemoptysis, Wheezing Gastrointestinal: Denies: Abdominal Pain, Hematemesis, Vomiting Genitourinary: Denies: Hematuria Skin: Denies: Jaundice - Physical Exam Vital Signs Temp Pulse Resp BP 97.8 F 83 18 144/83 H 08/15/18 10:52 08/15/18 10:52 08/15/18 10:52 08/15/18 10:52 General: Alert, Oriented x3, Cooperative, No apparent distress HEENT: Atraumatic, Normocephalic Oral: Moist Mucosa Neck: Supple Lungs: Normal air movement Abdomen: Non Tender Extremities: No cyanosis, Edema Skin: Ulcer/ Wound Wound Measurements and Assessment WC - Nurse 1 - General Ulcer Measurement Start: 08/15/18 10:51 Freq: Status: Active Protocol: Activity Type Activity Date Activity User E-Sign Co-Sign Detail Recorded Client Recorded Date Recorded By Document 08/15/18 10:52 [id number] 08/15/18 11:05 RB 08/15/18 10:52 Wound Center Nurse 1 [Ulcer Assessment] 13. R GREAT TOE NAILBED -Combined with other wound No -Current Size (cm) - Length 0.1 -Current Size (cm) - Width 0.1 -Current Size (cm) - Depth 0.1 -Total Square Cm 0.01 -Photo Taken Yes -Tunneling No -Undermining/Tunneling No -Circular Undermining No -Exudate Amt None Present (0 %) -Wound Margin Distinct, Outline Attached -Granulation Amt Small (1-33%) -Granulation Quality Progreso -Slough/Fibrin Yes -Necrosis Amt Large (67-100%) -Necrotic Tissue Type Eschar -Structure Exposed N/A -Texture (Jessie-wound Skin Appearance) Assessed -Moisture (Jessie-wound Skin Appearance Assessed ) Dry/Scaly -Color (Jessie-wound Skin Appearance) Assessed -Tenderness on Palpation (Jessie-wound No Skin Appearance) -Ulcer Cleansing Wound Cleanser -Foul Odor after Cleansing No -Anesthetic Used 4% Lidocaine Solution 12. L foot plantar -Combined with other wound No -Current Size (cm) - Length 1.6 -Current Size (cm) - Width 0.5 -Current Size (cm) - Depth 0.2 -Total Square Cm 0.80 -Photo Taken Yes -Tunneling No -Undermining/Tunneling No -Circular Undermining No -Exudate Amt Small (1-33%) -Exudate Type Serosanguineous -Wound Margin Thickened -Granulation Amt Medium (34-66%) -Granulation Quality Progreso -Slough/Fibrin Yes -Necrosis Amt Medium (34-66%) -Necrotic Tissue Type Adherent Slough -Structure Exposed N/A -Texture (Jessie-wound Skin Appearance) Callus -Moisture (Jessie-wound Skin Appearance Maceration ) -Color (Jessie-wound Skin Appearance) Assessed -Temperature (Jessie-wound Skin No Abnormality Appearance) (Pt Warm) -Tenderness on Palpation (Jessie-wound No Skin Appearance) -Ulcer Cleansing Wound Cleanser -Foul Odor after Cleansing No -Anesthetic Used 4% Lidocaine Solution 11. R medial LE -Combined with other wound No -Current Size (cm) - Length 1 -Current Size (cm) - Width 1.1 -Current Size (cm) - Depth 0.2 -Total Square Cm 1.1 -Photo Taken No -Tunneling No -Undermining/Tunneling No -Circular Undermining No -Exudate Amt Small (1-33%) -Exudate Type Serosanguineous -Wound Margin Thickened & Rolled Under -Granulation Amt Medium (34-66%) -Granulation Quality Progreso -Slough/Fibrin Yes -Necrosis Amt Medium (34-66%) -Necrotic Tissue Type Adherent Slough -Structure Exposed N/A -Texture (Jessie-wound Skin Appearance) Assessed -Moisture (Jessie-wound Skin Appearance Assessed ) -Color (Jessie-wound Skin Appearance) Erythema -Temperature (Jessie-wound Skin No Abnormality Appearance) (Pt Warm) -Tenderness on Palpation (Jessie-wound No Skin Appearance) -Ulcer Cleansing Wound Cleanser -Foul Odor after Cleansing No -Anesthetic Used 4% Lidocaine Solution [Edema Assessment] -Lower Limb Edema Present Yes -Right Calf (cm) 39.8 -Right Ankle (cm) 24 -Left Calf (cm) 37.5 -Left Ankle (cm) 24.2 WC - Nurse 2 - General Ulcer CM Notes Start: 08/15/18 10:51 Freq: Status: Active Protocol: Activity Type Activity Date Activity User E-Sign Co-Sign Detail Recorded Client Recorded Date Recorded By Document 08/15/18 11:23 MW [id number] 08/15/18 11:37 MW 08/15/18 11:23 Wound Center Nurse 2 [Procedure/Treatment] 13. R GREAT TOE NAILBED -Time 11:23 -Correct Patient Yes -Correct Side, Site, Position Yes -Correct Procedure Yes -Procedure Performed Yes -Type of Procedure Debridement -Clinical Debridement Subcutaneous -Post Debridement Size (cm) - Length 1.0 -Post Debridement Size (cm) - Width 1.0 -Post Debridement Size (cm) - Depth 0.1 -Total Square Cm 1.00 -Wound/Ulcer Outcome Not Healed -Ulcer Cleansing Rinsed/ Irrigated with Saline -Foul Odor after Cleansing No -Bioengineered Tissue No -Bleeding Controlled with Pressure -Offloading No -Treatment Response Procedure Tolerated Well 12. L foot plantar -Time 11:23 -Correct Patient Yes -Correct Side, Site, Position Yes -Correct Procedure Yes -Procedure Performed Yes -Type of Procedure Debridement -Clinical Debridement Subcutaneous -Post Debridement Size (cm) - Length 0.5 -Post Debridement Size (cm) - Width 1.6 -Post Debridement Size (cm) - Depth 0.2 -Total Square Cm 0.80 -Wound/Ulcer Outcome Not Healed -Ulcer Cleansing Rinsed/ Irrigated with Saline -Foul Odor after Cleansing No -Bioengineered Tissue No -Bleeding Controlled with Pressure -Offloading No -Treatment Response Procedure Tolerated Well 11. R medial LE -Time 11:23 -Correct Patient Yes -Correct Side, Site, Position Yes -Correct Procedure Yes -Procedure Performed Yes -Type of Procedure Debridement -Clinical Debridement Subcutaneous -Post Debridement Size (cm) - Length 1.4 -Post Debridement Size (cm) - Width 1.0 -Post Debridement Size (cm) - Depth 0.3 -Total Square Cm 1.40 -Wound/Ulcer Outcome Not Healed -Ulcer Cleansing Rinsed/ Irrigated with Saline -Foul Odor after Cleansing No -Bioengineered Tissue No -Bleeding Controlled with Pressure -Offloading No -Treatment Response Procedure Tolerated Well [See Physician Procedure note for Specifics] Pain Scale: 0-10 Numeric [Pain] -Is Patient Pain Free? Yes Musculoskeletal: No Muscle Wasting Neurological: Cranial nerves II-XII grossly intact Psych/Mental Status: Normal Affect Debridement Note Post-Debridement Measurements/Treatment WC - Nurse 2 - General Ulcer CM Notes Start: 08/15/18 10:51 Freq: Status: Active Protocol: Activity Type Activity Date Activity User E-Sign Co-Sign Detail Recorded Client Recorded Date Recorded By Document 08/15/18 11:23 MW [id number] 08/15/18 11:37 MW 08/15/18 11:23 Wound Center Nurse 2 13. R GREAT TOE NAILBED -Time 11:23 -Correct Patient Yes -Correct Side, Site, Position Yes -Correct Procedure Yes -Procedure Performed Yes -Type of Procedure Debridement -Clinical Debridement Subcutaneous -Post Debridement Size (cm) - Length 1.0 -Post Debridement Size (cm) - Width 1.0 -Post Debridement Size (cm) - Depth 0.1 -Total Square Cm 1.00 -Wound/Ulcer Outcome Not Healed -Ulcer Cleansing Rinsed/ Irrigated with Saline -Foul Odor after Cleansing No -Bioengineered Tissue No -Bleeding Controlled with Pressure -Offloading No -Treatment Response Procedure Tolerated Well 12. L foot plantar -Time 11:23 -Correct Patient Yes -Correct Side, Site, Position Yes -Correct Procedure Yes -Procedure Performed Yes -Type of Procedure Debridement -Clinical Debridement Subcutaneous -Post Debridement Size (cm) - Length 0.5 -Post Debridement Size (cm) - Width 1.6 -Post Debridement Size (cm) - Depth 0.2 -Total Square Cm 0.80 -Wound/Ulcer Outcome Not Healed -Ulcer Cleansing Rinsed/ Irrigated with Saline -Foul Odor after Cleansing No -Bioengineered Tissue No -Bleeding Controlled with Pressure -Offloading No -Treatment Response Procedure Tolerated Well 11. R medial LE -Time 11:23 -Correct Patient Yes -Correct Side, Site, Position Yes -Correct Procedure Yes -Procedure Performed Yes -Type of Procedure Debridement -Clinical Debridement Subcutaneous -Post Debridement Size (cm) - Length 1.4 -Post Debridement Size (cm) - Width 1.0 -Post Debridement Size (cm) - Depth 0.3 -Total Square Cm 1.40 -Wound/Ulcer Outcome Not Healed -Ulcer Cleansing Rinsed/ Irrigated with Saline -Foul Odor after Cleansing No -Bioengineered Tissue No -Bleeding Controlled with Pressure -Offloading No -Treatment Response Procedure Tolerated Well Pain Scale: 0-10 Numeric Is Patient Pain Free? Yes Wound debrided: Left Foot Wound Grade/Stage: Grade 2 Type of Debridement: Excisional debridement Anesthesia Used: 4% Lidocaine Solution Depth: Down to and including healthy tissue, in the subcutaneous layer Percentage of wound debrided: 100 Instrument Used: 3mm curette Tissue Removed: Slough and devitalized tissue Severity: Fat Layer Exposed Amount of bleeding with debridement: Mild Bleeding Controlled with: Pressure Patient tolerated procedure well - Additional Wound Wound debrided: Right medial lower extremity Wound Grade/Stage: Stage II Type of Debridement: Excisional debridement Anesthesia Used: 4% Lidocaine Solution Depth: Down to and including healthy tissue, in the subcutaneous layer Percentage of wound debrided: 100 Instrument Used: 3mm curette Tissue Removed: Slough and devitalized tissue Severity: Fat Layer Exposed Amount of bleeding with debridement: Mild Bleeding Controlled with: Pressure Patient tolerated procedure: Patient tolerated procedure well - Additional Wound Wound debrided: Right great toe Wound Grade/Stage: Grade 2 Type of Debridement: Excisional debridement Anesthesia Used: 4% Lidocaine Solution Depth: Down to and including healthy tissue, in the subcutaneous layer Percentage of wound debrided: 100 Instrument Used: 3mm curette, #15 blade, Forceps, - - Scissors Tissue Removed: Callus, Keratinized skin, slough and devitalized tissue Severity: Fat Layer Exposed Amount of bleeding with debridement: Mild Bleeding Controlled with: Pressure Patient tolerated procedure: Patient tolerated procedure well Assessment/Plan Active Problems (Last Reviewed 07/24/18 @ 11:41 by Robin Kimble MD) 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 Diabetes mellitus type 2, poorly controlled. Bilateral lower extremity venous insufficiency. Plan: Debridement of all ulcers done as documenetd above, procedure was well tolerated. Apply Pomogran to all ulcers with adaptic over top. Leave right medial and left foot in for a week. Change right great to daily. OptiForm to left foot. Elevate lower extremity when seated and in bed. 3M wraps for edema management. Compliance with diuretics and elevation of her lower extremities strongly recommended. Continue Follow-up with PCP for optimal blood sugar management. She has done better since being in a jail however has been home since 08/10 and she is not open to home health care. Follow up on sunday for a NV and in 1 week with TONJA Villar for a courtesy visit. Advised to call with any questions or concerns. Follow up with me in 2 weeks. This note was generated with [employer] dictation software. It may contain incorrect words, spelling, and punctuation that were not noted in checking the note before signing.
== END 2018-08-19 23:59 ==
LOC: WC 11:40
PROVIDERS: Family Provider Family Medicine; PCP Family Medicine; Referring Provider Internal Medicine; Visit Provider Internal Medicine
DX: E11.622 Type 2 diabetes mellitus with other skin ulcer (principal); L97.812 Non-pressure chronic ulcer of other part of right lower leg with fat layer exposed; E11.621 Type 2 diabetes mellitus with foot ulcer; E11.65 Type 2 diabetes mellitus with hyperglycemia; I87.2 Venous insufficiency (chronic) (peripheral); M79.89 Other specified soft tissue disorders; I48.2 Chronic atrial fibrillation; E11.42 Type 2 diabetes mellitus with diabetic polyneuropathy; Z95.2 Presence of prosthetic heart valve; E78.5 Hyperlipidemia, unspecified; L97.522 Non-pressure chronic ulcer of other part of left foot with fat layer exposed; L97.512 Non-pressure chronic ulcer of other part of right foot with fat layer exposed
CPT/HCPCS: 11042; 29581; 99213; G0463

== ENCOUNTER 2018-08-17 15:31 | Inpatient (IN) | payer MEDICARE, OTHER, SELFPAY ==
[2018-08-17] VITALS (13 sets, daily range): BP systolic 136–186; BP diastolic 67–100; PULSE 84–117; RESP 20–25; TEMP 36.9–37.5; O2SAT 89–97; BMI 27.0; BMI 24.5
--- NOTE | 2018-08-17 15:42 | EKG12_ITS ---
Test Reason : COUGH Blood Pressure : / mmHG Vent. Rate : 108 BPM Atrial Rate : 108 BPM P-R Int : 148 ms QRS Dur : 084 ms QT Int : 344 ms P-R-T Axes : 062 -39 059 degrees QTc Int : 460 ms Sinus tachycardia with occasional Premature ventricular complexes Possible Left atrial enlargement Left axis deviation Abnormal ECG Confirmed by TOMEKA SHANNON, DEANN ([id number]), editor city MELISSA CACERES ([id number]) on 08/19/2018 12:45:11 PM Referred By: William Hamilton Confirmed By:DEANN ECKERT MD
--- NOTE | 2018-08-17 15:49 | ED.DCSUM_ITS ---
- ER Visit Summary Date of Service: 08/17/18 Chief Complaint: Dyspnea, productive cough weakness History of Present Illness: The patient is a 83 F who states illness started yesterday with runny nose, productive cough of brown sputum, shortness of breath, wheezing and dyspnea on exertion. She denies fever or chills. She does not have history of PE or DVT. She does complain of leg swelling, which is chronic. She is not a good informant. She denied history of hypertension even though she is on multiple antihypertensive meds. She is uncertain why she is on Eliquis. She denies abdominal pain or abdominal surgery. She denies nausea, vomiting diarrhea. She denies dysuria, frequency, urgency or hematuria. She denies orthopnea or PND. She denies history of congestive heart failure or coronary disease. Physical Examination: Patient's vitals are remarkable for heart rate of 100 and respiration 20. HEENT exam is remarkable for clear rhinorrhea. Lungs reveal expiratory wheezing bilateral increased extra phase. There is rales posterior left lower lobe. Heart is regular without appreciable murmur, gallop or rub. Abdomen is soft nontender. 2+ pitting edema of the lower extremities. Difficult to palpate pulses in the lower extremity because of the edema. She is alert oriented x3. Motor sensory intact. DTRs are symmetric. Cranial 2 through 12 are intact. Test Results: White count is 11.8 thousand with 87 segs no bands. Basic metabolic panels marked for sodium of 129 and chloride of 90. She is on no diuretic. Glucose is 263. CO2 and anion gap are normal. Lactate is 1.5. After walking patient's pulse ox dropped to 89%. Emergency Department Course and Treatment: With complaint of brown colored sputum and x-ray wheezing with dyspnea will obtain chest x-ray, appropriate blood work and EKG. Need to evaluate for bronchitis with bronchospasm versus pneumonia since she has pedal edema with rales will also need to evaluate for congestive heart failure. She was treated with DuoNeb and albuterol. She was prescribed levofloxacin and albuterol MDI this morning by the practitioner at the urgent care center. Treatment Plan: Since patient has brown colored sputum will treat with IV antibiotics, the hospitalist Dr. Lovett was paged for inpatient versus observation status. Disposition: Medical surgical unit with telemetry Impression: 1. Purulent bronchitis versus clinical pneumonia 2. Sinus tachycardia documented on EKG 3. Hyponatremia evaluate for SIADH 4. Hyperglycemia and type II diabetic 5. History of hypertension This note was generated with [employer] dictation software. It may contain incorrect words, spelling, and punctuation that were not noted in review of the chart prior to signing ED Disposition - Plan for ED Patient: Chief Complaint: Cough Referrals: Chad Chang MD [Primary Care Provider] -
[2018-08-17] MEDS: Albuterol 2.5 MG/3 ML VIAL.NEB. INHALATION (15:58)
[2018-08-17] MEDS: Ipratropium/Albuterol Sulfate 3 ML AMPUL.NEB INHALATION (15:58)
[2018-08-17 16:25] LABS: Absolute Lymphocyte Count 0.65 X10^3/ul (0.83-4.51); Absolute Neutrophil Count 10.2 X10^3/uL (2.0-7.7); Basophil# 0.01 X10^3/uL; Basophil% 0.1 % (0-1); Hematocrit 39.2 % (37-47); Hemoglobin 12.5 g/dl (12.0-15.0); Lymphocyte # 0.65 X10^3/ul (4.0); Lymphocyte % 5.5 % (19-41); Mean Corp Hgb Conc 31.9 g/gl (32-36); Mean Corpuscular Hgb 27.6 pg (27.0-32.0); Mean Corpuscular Volume 86.5 fL (81-99); Mean Platelet Vol. 9.6 fl (6.2-12.0); Monocyte% 7.7 % (0-10); Neutrophil # 10.18 X10^3/uL (2.7-7.7); Neutrophil % 86.5 % (47-70); Platelet Count 280 K/mm3 (150-450); RBC Distribution Width CV 15.8 % (11.6-14.6); RBC Distribution Width SD 50.8 fl (35.1-43.9); Red Blood Count 4.53 M/mm3 (4.2-5.4); White Blood Count 11.8 K/mm3 (4.4-11.0)
[2018-08-17 16:26] LABS: POSITIVE COUNT NO; POSITIVE DIFFERENTIAL NO; POSITIVE MORPHOLOGY NO
--- NOTE | 2018-08-17 16:40 | RAD_ITS ---
STUDY: X-RAY CHEST REASON FOR EXAM: Female, 83 years old. Productive cough. TECHNIQUE: PA and lateral chest. COMPARISON: 10/20/2017. FINDINGS: The patient is status post sternotomy and aortic valve replacement. The lungs are clear and expanded. There is no demonstrated pleural abnormality. Normal size heart. Normal mediastinum and pito. Normal visualized pulmonary arteries. There is mild atherosclerotic calcification of the aorta. There are mild degenerative changes of the shoulders and spine. Soft tissues and bony structures are otherwise unremarkable. RAD/Chest PA and Lateral IMPRESSION: No acute process. Electronically Signed: Jacquelyn Campbell MD at 17:14 EST Tel , Service support ,
[2018-08-17 16:52] LABS: Anion Gap 11 (5-15); BUN 17 mg/dL (7-18); BUN/Creat Ratio 28.5 RATIO (10-20); Calcium,Total 8.6 mg/dL (8.5-10.1); Chloride 90 mmol/L (98-107); EST Glomerular Filtration Rate 103 mL/min (>60); Est Glom Filt Rate - Afr Amer 124 mL/min (>60); Estimated Creatinine Clearance 33.29 ml/min; Glucose 263 mg/dL (74-106); Potassium 4.1 mmol/L (3.5-5.1); Sodium Level 129 mmol/L (136-145)
[2018-08-17 16:54] LABS: Lactic Acid 1.5 mmol/L (0.4-2.0)
[2018-08-17 17:49] LABS: Osmolality, Urine 695 mOsm/KG
--- NOTE | 2018-08-17 18:30 | HP.PCM_ITS ---
Problem List (1) Depression Status: Chronic (2) Anxiety Status: Chronic (3) Atrial fibrillation Status: Chronic (4) HTN (hypertension) Status: Chronic Qualifiers: (5) Type 2 diabetes mellitus Status: Chronic Qualifiers: (6) Paroxysmal atrial fibrillation Status: Chronic (7) History of aortic valve replacement with bioprosthetic valve Status: Chronic Comment: 23 mm Saint to trifecta GT valve in June 2016 at [facility]; (8) Hyperlipidemia Status: Chronic Qualifiers: (9) Pulmonary hypertension Status: Chronic History of Present Illness Date of Admission: 08/17/18 Chief Complaint: Shortness of breath, productive cough. The patient is a 83 year old F with past medical history as mentioned above presented to the emergency room because of shortness of breath and productive cough. Her illness started yesterday with shortness of breath, comes on mainly up on minimal activity, somewhat relieved by rest, associated with productive cough with brown sputum as well as wheezing and weakness and without relieving factors. Today, she went to the urgent care and she was given prescription for Levaquin but later, her symptoms got worse and she decided to come to the emergency department for evaluation. She reported associated sore throat. She denies fever or chills. In the emergency department, she was afebrile, tachycardic, blood pressure slightly elevated, pulse ox was 89% on room air. Her routine blood work was remarkable for mild leukocytosis, sodium of 129, otherwise normal. Lactic acid was normal. EKG revealed sinus tachycardia with PVCs, no acute ischemic changes. Chest x-ray showed no obvious infiltrate, consolidation or effusion although it was poor quality x-ray. She is being admitted for acute bronchitis, suspected clinical pneumonia and hyponatremia. Past Medical History Past Medical History (Chronic Problems): Chronic Problems (Last Updated 08/17/18 @ 18:07 by William Hamilton MD) Uncontrolled diabetes mellitus (Chronic) Depression (Chronic) Anxiety (Chronic) Atrial fibrillation (Chronic) Overactive bladder (Chronic) Tinea unguium (Chronic) Ulcer of right lower extremity with fat layer exposed (Chronic) Ulcer of left lower extremity with fat layer exposed (Chronic) Chronic ulcer of left foot with fat layer exposed (Chronic) Hallux valgus (acquired), right foot (Chronic) Chronic ulcer of right great toe with fat layer exposed (Chronic) Nonrheumatic mitral (valve) insufficiency (Chronic) Non-rheumatic tricuspid valve insufficiency (Chronic) HTN (hypertension) (Chronic) Anxiety and depression (Chronic) Ulcer of left lower extremity with fat layer exposed (Chronic) Venous insufficiency of both lower extremities (Chronic) Ulcer of right lower extremity with fat layer exposed (Chronic) Venous ulcers of both lower extremities (Chronic) Type 2 diabetes mellitus (Chronic) Paroxysmal atrial fibrillation (Chronic) History of aortic valve replacement with bioprosthetic valve (Chronic ~06/20/16) 23 mm Saint to trifecta GT valve in June 2016 at [facility]; Hyperlipidemia (Chronic) Pulmonary hypertension (Chronic) Medical History: Medical History (Last Updated 08/17/18 @ 18:07 by William Hamilton MD) Nonrheumatic mitral (valve) insufficiency (Chronic) I34.0 Non-rheumatic tricuspid valve insufficiency (Chronic) I36.1 HTN (hypertension) (Chronic) I10 Anxiety and depression (Chronic) F41.8 Venous insufficiency of both lower extremities (Chronic) I87.2 Ulcer of right lower extremity with fat layer exposed (Chronic) L97.912 Venous ulcers of both lower extremities (Chronic) I87.2, L97.919, L97.929 Type 2 diabetes mellitus (Chronic) E11.9 Paroxysmal atrial fibrillation (Chronic) I48.0 Hyperlipidemia (Chronic) E78.5 Pulmonary hypertension (Chronic) I27.2 GERD (gastroesophageal reflux disease) K21.9 Nonrheumatic aortic (valve) stenosis I35.0 Abnormal pulmonary function (Inactive) R94.2 Aortic stenosis (Inactive) I35.0 DM2 (diabetes mellitus, type 2) (Inactive) E11.9 Diabetes mellitus (Inactive) E11.9 Mitral valve disorder (Inactive) I05.9 Allergies No Known Allergies Allergy (Verified 07/08/18 16:39) Home Medications: Ambulatory Orders Medication Instructions Recorded metformin 1,000 mg tablet 1,000 mg PO BIDCM 0 Days 03/15/18 Apixaban [Eliquis] 5 mg PO BID 07/08/18 Atorvastatin Calcium 20 mg PO DAILY 07/08/18 Lisinopril [Zestril] 5 mg PO BID 07/08/18 Tolterodine Tartrate [Tolterodine 4 mg PO DAILY 07/08/18 Tartrate ER] Acetaminophen [Tylenol] 1,000 mg PO Q6H PRN PRN tablet 08/06/18 Glimepiride [Amaryl] 4 mg PO BIDCM #60 tablet 08/06/18 Iron Polysaccharide Complex 150 mg PO DAILYCM #30 capsule 08/06/18 [Ferrex 150] Linagliptin [Tradjenta] 5 mg PO DAILY #30 tablet 08/06/18 Pioglitazone [Actos] 30 mg PO DAILY@0800 #30 tablet 08/06/18 Aspirin [Aspirin, Baby] 81 mg PO DAILY@0800 08/17/18 Benzonatate [Tessalon Perle] 100 mg PO TID PRN PRN 08/17/18 levoFLOXacin tablet [Levaquin 750 mg PO DAILY 08/17/18 tablet] Surgical History: Surgical History (Last Updated 08/17/18 @ 18:07 by William Hamilton MD) History of aortic valve replacement with bioprosthetic valve (Chronic) Onset Date: ~06/20/16 Z95.4 23 mm Saint to trifecta GT valve in June 2016 at [facility]; History of knee replacement procedure of left knee Z96.652 History of knee replacement procedure of right knee Z96.651 H/O aortic valve replacement (Inactive) Onset Date: ~06/20/16 Z95.2 Surgical History: - - Aortic valve replacement with bioprosthetic valve. Lives: Alone Smoking Status: Never smoker Alcohol: None Drugs: None - *Family History Paternal Family History: Family History (Last Reviewed 07/24/18 @ 11:42 by Robin Kimble MD) Father CAD (coronary artery disease) Mother CAD (coronary artery disease) History Items: Dementia, Heart Disease Maternal Family History: Family History (Last Reviewed 07/24/18 @ 11:42 by Robin Kimble MD) Father CAD (coronary artery disease) Mother CAD (coronary artery disease) History Items: Heart Disease Review of Systems Constitutional: Reports: Weakness. Denies: Anorexia, Chills, Fever Eyes: Denies: Blurred vision, Double vision, Drainage, Redness HEENT: Reports: Sore Throat. Denies: Difficulty Hearing, Ear Pain, Eye Pain, Nasal Congestion Cardiovascular: Reports: Edema. Denies: Chest Pain, Chest Pressure, Chest Tightness, Heaviness, Light Headedness, Palpitations, Syncope Respiratory: Reports: Cough, Shortness of Breath, Shortness of breath at rest, Shortness of breath upon exertion, Sputum production, Wheezing. Denies: Hemoptysis, Pleuritic Pain Gastrointestinal: Denies: Abdominal Pain, Constipation, Diarrhea, Nausea, Vomiting Genitourinary: Denies: Dysuria, Frequency, Hematuria Musculoskeletal: Denies: Arm Pain, Back Pain, Foot Pain Skin: Denies: Dryness, Rash Neurological: Denies: Balance problems, Double vision, Change in Speech, Slurred speech, Confusion, Headaches, Incoordination Psychiatric: Reports: Anxiety, Depression Endocrine: Denies: Change in Body Habitus, Polydipsia VTE Information - Inpt Only VTE Present on Admission: No VTE Mechan Device Prophylaxis: None VTE Pharm Prophylaxis ordered?: No - Physical Exam General: Alert, Oriented x3, Cooperative, No apparent distress HEENT: Atraumatic, PERRLA, EOMI, Normocephalic Oral: Moist Mucosa, No Gingival or Mucosal Lesions/ Ulcerations Neck: Supple, No JVD, Negative Carotid Bruits, Trachea Midline, Thyroid Normal Size and Texture Lungs: No wheeze, Diminished, Rhonchi, Short of Breath, - - Decreased breath sounds bilateral, bilateral basal crackles, rhonchi. Cardiovascular: Normal S1, Normal S2, No murmurs, PMI Normal, Irregular Rate, Tachycardic Abdomen: Bowel Sounds Present, Soft, Non Tender, Non-Distended, No Hepato- splenomegaly Extremities: No clubbing, No cyanosis, Edema - ++ Edema. Skin: No rashes, No breakdown Lymphatic: No Cervical, Supraclavicular, or Inguinal Adenopathy Neurological: Cranial nerves II-XII grossly intact, Motor Exam 5/5 strength throughout Psych/Mental Status: Normal Affect, Appropriate, Alert and oriented to time, place, person, mood and affect Vital Signs Temp Pulse Resp BP Pulse Ox 98.4 F 106 H 25 H 146/73 H 95 08/17/18 17:50 08/17/18 17:50 08/17/18 17:50 08/17/18 17:50 08/17/18 17:50 Oxygen Delivery Method Room Air Weight: 143 lb Body Mass Index (BMI) 27.0 Finger Stick Blood Glucose 394 Laboratory Tests Past 24 Hrs 08/17/18 08/17/18 08/17/18 16:00 16:00 16:00 WBC 11.8 H RBC 4.53 Hgb 12.5 Hct 39.2 MCV 86.5 MCH 27.6 MCHC 31.9 L RDW 15.8 H RDW Differential 50.8 H Plt Count 280 MPV 9.6 Immature Gran % (Auto) 0.200 Neut % (Auto) 86.5 H Lymph % (Auto) 5.5 L [place] % (Auto) 7.7 Eos % (Auto) 0.0 Baso % (Auto) 0.1 Absolute Neuts (auto) 10.2 H Absolute Lymphs (auto) 0.65 L Total Counted Not Reportable Sodium 129 L Potassium 4.1 Chloride 90 L Carbon Dioxide 28.0 Anion Gap 11 BUN 17 Creatinine 0.60 Estim Creat Clear Calc 33.29 Est GFR (MDRD) Af Amer 124 Est GFR (MDRD) Non-Af 103 BUN/Creatinine Ratio 28.5 H Glucose 263 H Lactic Acid 1.5 Calcium 8.6 Urine Osmolality 08/17/18 17:13 WBC RBC Hgb Hct MCV MCH MCHC RDW RDW Differential Plt Count MPV Immature Gran % (Auto) Neut % (Auto) Lymph % (Auto) [place] % (Auto) Eos % (Auto) Baso % (Auto) Absolute Neuts (auto) Absolute Lymphs (auto) Total Counted Sodium Potassium Chloride Carbon Dioxide Anion Gap BUN Creatinine Estim Creat Clear Calc Est GFR (MDRD) Af Amer Est GFR (MDRD) Non-Af BUN/Creatinine Ratio Glucose Lactic Acid Calcium Urine Osmolality 695 Clinical Impression(s) from Imaging Studies Chest X-Ray 08/17/18 16:40 IMPRESSION: No acute process. Electronically Signed: Jacquelyn Campbell MD at 17:14 EST Tel , Service support , Assessment/Plan This is an 83 years old female patient presented to the emergency room because of shortness of breath and productive cough and she was found to have findings consistent with acute bronchitis and suspected clinical pneumonia as well as hyponatremia and she is being admitted for evaluation and treatment. #1 acute bronchitis/suspected community-acquired pneumonia: Chest x-ray reviewed, poor quality but no obvious infiltrate or consolidation. She does have mild leukocytosis, afebrile, lactic acid is normal. EKG reviewed, unremarkable. CHF cannot be ruled out because she has leg edema as well as history of paroxysmal A. fib and valvular replacement. Plan: Admit to MedSurg floor, cardiac monitoring, troponin x1, sputum culture, urinalysis, urine culture, start IV Levaquin empirically, IV fluids, repeat chest x-ray tomorrow morning, BNP, 2D echocardiogram, bronchodilators, respiratory panel for viruses, repeat CBC and BMP tomorrow morning incentive spirometer, PT OT evaluation and treatment. #2 hyponatremia: We will check urine sodium, urine chloride, urine creatinine, serum and plasma osmolality, IV fluids with normal saline, repeat BMP tomorrow morning. #4 type 2 diabetes mellitus: Uncontrolled. Plan for ADA diet, Accu-Cheks, insulin scale, continue Mccarthy, Tradjenta and Metformin. #4 hypertension: Blood pressure stable, continue lisinopril. #5 status post aortic valve replacement with bioprosthetic valve: #6 paroxysmal atrial fibrillation: At this time, she is in sinus rhythm, rate has been around 110. Plan to continue Eliquis for anticoagulation and she is not on any rate control medicine. May need to start on beta-blockers if heart rate remained above 100. #7 anxiety/depression: She is not actively on any medication for it. #8 hyperlipidemia: Continue statins. #9 DVT prophylaxis: Continue Eliquis. This note was generated with [employer] dictation software. It may contain incorrect words, spelling, and punctuation that were not noted in checking the note before signing. Code Visit Inpatient E&M: 27463 Init Hosp L3
[2018-08-17 20:31] LABS: Bedside Glucose 271 mg/dL (70-110)
--- NOTE | 2018-08-17 20:52 | ECHOD_ITS ---
Reason For Study: dyspnea/SOB Procedure This was a 2D Doppler, Color Flow transthoracic echocardiogram. The exam was of adequate technical quality. Exam performed portable in patient room. Left Ventricle Normal LV size. Moderate concentric left ventricular hypertrophy. Left ventricular systolic function is normal. The estimated ejection fraction is 65 %. Post operative septal motion. There is evidence of diastolic dysfunction. No regional wall motion abnormalities noted. Right Ventricle Normal RV size. Normal systolic function. Atria The left atrium is severely enlarged. The right atrium is mildly enlarged. No doppler evidence for ASD. Mitral Valve There is severe mitral annular calcification. Extension of the mitral annular calcification onto the mitral valve apparatus. Mild diffuse mitral valve thickening. Mild focal mitral valve calcification of the anterior leaflet. Moderate (2+) mitral valve insufficiency. Tricuspid Valve Mild diffuse thickening of the tricuspid valve. Moderately severe (3+) tricuspid valve insufficiency. Right ventricular systolic pressure estimated to be 49 mmHg. Aortic Valve Stable appearing bioprosthetic aortic valve apparatus. Pulmonic Valve The pulmonic valve is not well visualized. Great Vessels Normal sized aortic root. Calcified aortic root. Pericardium/Pleural No pericardial effusion. MMode/2D Measurements & Calculations LVIDd: 4.8 cm IVSd: 1.7 cm LVOT diam: 2.0 cm LVIDs: 2.7 cm LVPWd: 1.6 cm LVOT area: 3.1 cm2 RVDd: 4.0 cm FS: 44.5 % Ao root diam: 3.3 cm LAV(MOD-bp): 153.6 ml LA A4 area: 37.4 cm2 LAV(MOD-bp) Indexed: 99.2 ml/m2 LAV(MOD-sp2): 148.1 ml LAV(MOD-sp4): 152.7 ml LA dimension(2D): 4.5 cm RA A4 area: 14.8 cm2 Doppler Measurements & Calculations MV E max rojelio: 113.0 cm/sec Lat Peak E' Rojelio: 6.0 cm/sec Med Peak E' Rojelio: 6.3 cm/sec MV A max rojelio: 126.6 cm/sec E/E' lat: 18.8 E/E' med: 18.0 MV E/A: 0.89 Ao V2 max: 246.8 cm/sec LV V1 max: 145.2 cm/sec SV(LVOT): 87.9 ml Ao max P.8 mmHg LV V1 max P.5 mmHg Ao V2 mean: 174.7 cm/sec LV V1 mean P.7 mmHg Ao mean P.5 mmHg LV V1 mean: 102.2 cm/sec Ao V2 VTI: 47.8 cm LV V1 VTI: 28.6 cm RUBEN(I,D): 1.8 cm2 RUBEN(V,D): 1.8 cm2 PA V2 max: 112.6 cm/sec TR max rojelio: 339.0 cm/sec TR max P.1 mmHg Interpretation Summary Left ventricular systolic function is normal. The estimated ejection fraction is 65 %. Post operative septal motion. Moderate concentric left ventricular hypertrophy. The left atrium is severely enlarged. The right atrium is mildly enlarged. There is severe mitral annular calcification. Extension of the mitral annular calcification onto the mitral valve apparatus. Mild diffuse mitral valve thickening. Mild focal mitral valve calcification of the anterior leaflet. Moderate (2+) mitral valve insufficiency. Mild diffuse thickening of the tricuspid valve. Moderately severe (3+) tricuspid valve insufficiency. Stable appearing bioprosthetic aortic valve apparatus. Calcified aortic root. Right ventricular systolic pressure estimated to be 49 mmHg. There is evidence of diastolic dysfunction. Ordering Physician: William Hamilton Referring Physician: Chad Chang Performed By: Cyndi Waters, EMIL, RVT
[2018-08-17 21:19] LABS: International Normalized Ratio 1.4; Prothrombin Time (Protime)PT. 17.1 SECONDS (11.7-14.9)
[2018-08-17 21:44] LABS: Osmolality, Serum 276 mOsm/KG (280-301)
[2018-08-17 21:47] LABS: BNP,B-Type NATRIURETIC PEPTIDE 639.8 pg/mL (0-100)
[2018-08-17] MEDS: APIXABAN 5 MG TABLET PO (22:35)
[2018-08-17] MEDS: Insulin Lispro 100 UNIT/ML INSULN.PEN SC (22:35)
[2018-08-17] MEDS: Lisinopril 5 MG Tablet PO (22:35)
[2018-08-17] MEDS: Atorvastatin Calcium 20 MG Tablet PO (22:35)
--- NOTE | 2018-08-17 22:37 | NURSING ---
Notified Betito in Pharmacy that pt states she took an oral Levaquin today that was prescribed from Urgent Care. Betito will retime IV Levaquin.
[2018-08-17 23:08] LABS: Bacteria 0 SEEN /hpf (None Seen); White Blood Cells 0 SEEN /hpf (0-5)
[2018-08-17 23:24] LABS: Color, Urine Yellow (Yellow); Glucose, Dipstick 1000 mg/dl (Normal); Ketone-Dipstick 15 mg/dl (Negative); Leukocyte Esterase-Dipstick Negative /ul (Negative); Nitrite-Dipstick Negative (Negative); Occult Blood-Urine 25 /ul (Negative); Protein-Dipstick 100 mg/dl (Negative); Urine Bilirubin Dipstick Negative (Negative); Urine Clarity Sl. Cloudy (Clear); Urine Urobilinogen Normal (Normal)
[2018-08-17 23:29] LABS: Urine Chloride 178 mmol/L (Not Establ.)
[2018-08-17 23:30] LABS: Red Blood Cells-Urine 0-5 SEEN /hpf (0-5)
[2018-08-17 23:31] LABS: Mucous, Urine 1+ /hpf (<or=2+); Squamous Epithelial Cells - UA 0-5 SEEN /hpf (5-10); Urine Sodium 165 mmol/L (Not Establ.)
[2018-08-18] VITALS (17 sets, daily range): BP systolic 122–145; BP diastolic 64–77; PULSE 74–111; RESP 16–21; TEMP 36.5–37.1; O2SAT 92–97
[2018-08-18] MEDS: Ipratropium/Albuterol Sulfate 3 ML AMPUL.NEB INHALATION ×4 (00:20→19:32)
--- NOTE | 2018-08-18 05:55 | RAD_ITS ---
STUDY: X-RAY CHEST REASON FOR EXAM: Female, 83 years old. Shortness of breath, dyspnea TECHNIQUE: PA and lateral views of the chest. COMPARISON: August 17, 2018 chest x-ray FINDINGS: There is elevation of the right hemidiaphragm. Interstitial markings are minimally prominent. There is no demonstrated pleural abnormality. There is moderate cardiac enlargement. There is a cardiac valve replacement. Tenotomy wires are seen midline. Normal mediastinum and pito. Normal visualized pulmonary arteries. Normal visualized aortic arch and descending thoracic aorta. There are diffuse degenerative changes of the visualized thoracic spine. Normal visualized ribs, clavicles, and shoulders. There is no demonstrated abnormality of the visualized soft tissue structures of the upper abdomen. RAD/Chest PA and Lateral IMPRESSION: Cardiomegaly status post sternotomy. Trace vascular congestion. Electronically Signed: Nell Chavez MD at 9:05 EST Tel , Service support ,
[2018-08-18] MEDS: Insulin Lispro 100 UNIT/ML INSULN.PEN SC ×4 (06:13→20:09)
[2018-08-18 06:21] LABS: Bedside Glucose 244 mg/dL (70-110)
[2018-08-18 06:39] LABS: Absolute Lymphocyte Count 0.93 X10^3/ul (0.83-4.51); Basophil# 0.01 X10^3/uL; Basophil% 0.1 % (0-1); Hemoglobin 10.9 g/dl (12.0-15.0); Lymphocyte # 0.93 X10^3/ul (4.0); Lymphocyte % 12.2 % (19-41); Mean Corp Hgb Conc 32.1 g/gl (32-36); Mean Corpuscular Volume 87.4 fL (81-99); Mean Platelet Vol. 9.8 fl (6.2-12.0); Monocyte# 0.65 X10^3/uL; Monocyte% 8.6 % (0-10); Platelet Count 236 K/mm3 (150-450); RBC Distribution Width CV 15.7 % (11.6-14.6); RBC Distribution Width SD 49.4 fl (35.1-43.9); Red Blood Count 3.89 M/mm3 (4.2-5.4); White Blood Count 7.6 K/mm3 (4.4-11.0)
[2018-08-18 06:48] LABS: POSITIVE COUNT NO; POSITIVE DIFFERENTIAL NO; POSITIVE MORPHOLOGY NO
[2018-08-18 07:05] LABS: Anion Gap 7 (5-15); BUN 13 mg/dL (7-18); BUN/Creat Ratio 31.7 RATIO (10-20); Calcium,Total 8.2 mg/dL (8.5-10.1); Chloride 94 mmol/L (98-107); Creatinine, Serum 0.41 mg/dL (0.55-1.02); EST Glomerular Filtration Rate 158 mL/min (>60); Est Glom Filt Rate - Afr Amer 191 mL/min (>60); Estimated Creatinine Clearance 33.29 ml/min; Glucose 224 mg/dL (74-106); Potassium 3.8 mmol/L (3.5-5.1); Sodium Level 129 mmol/L (136-145)
[2018-08-18] MEDS: Aspirin 81 MG TAB.CHEW PO (07:49)
[2018-08-18] MEDS: Glimepiride 4 MG Tablet PO ×2 (07:49→17:34)
[2018-08-18] MEDS: Pioglitazone Hydrochloride 30 MG Tablet PO (07:49)
[2018-08-18] MEDS: metFORMIN HCl 1,000 MG Tablet 1000 MG PO ×2 (07:50→17:34)
[2018-08-18] MEDS: Iron Polysaccharide Complex 150 MG CAPSULE PO (07:50)
[2018-08-18] MEDS: LINAGLIPTIN 5 MG TABLET PO (07:51)
[2018-08-18] MEDS: Lisinopril 5 MG Tablet PO ×2 (07:51→20:11)
[2018-08-18] MEDS: Tolterodine Tartrate 4 MG CAP.SA PO (07:51)
[2018-08-18] MEDS: APIXABAN 5 MG TABLET PO ×2 (07:51→20:08)
--- NOTE | 2018-08-18 08:00 | EKG12_ITS ---
Test Reason : Blood Pressure : / mmHG Vent. Rate : 089 BPM Atrial Rate : 089 BPM P-R Int : 164 ms QRS Dur : 088 ms QT Int : 320 ms P-R-T Axes : 076 027 080 degrees QTc Int : 389 ms Normal sinus rhythm with sinus arrhythmia Low voltage QRS Nonspecific T wave abnormality Abnormal ECG Confirmed by TOMEKA SHANNON, DEANN ([id number]), proposal editor MELISSA CACERES ([id number] on 08/21/2018 3:07:51 PM Referred By: William Hamilton Confirmed By:DEANN ECKERT MD
[2018-08-18 09:34] LABS: Thyroid Stim Hormone (TSH) 1.44 uIU/mL (0.358-3.74)
[2018-08-18] MEDS: Glucerna Shake 120 ML LIQUID PO ×4 (09:46→20:18)
--- NOTE | 2018-08-18 11:03 | NURSING ---
PT RESP PANEL +RSV B - TEXT TO DR AKBAR REGARDING SAME.
[2018-08-18 11:30] LABS: Bedside Glucose 321 mg/dL (70-110)
--- NOTE | 2018-08-18 11:31 | PCM.PN.HOSP ---
Patient Problems: Active and Suspected Problems (Last Updated 08/17/18 @ 18:07 by William Hamilton MD) Bronchitis (Acute) Hyponatremia (Acute) Subjective: feels better. coughing. Vitals/I&O's: Vital Signs Temp Pulse Resp BP Pulse Ox 36.5 C L 91 20 H 122/64 H 93 08/18/18 07:15 08/18/18 10:00 08/18/18 07:34 08/18/18 07:15 08/18/18 07:34 Oxygen Delivery Method Room Air Weight: 58.8 kg Body Mass Index (BMI) 24.5 Finger Stick Blood Glucose 394 Intake and Output for Last 24 Hours 08/16/18 08/17/18 08/18/18 23:59 23:59 23:59 Intake Total 120 / 120 Balance 120 / 120 General: Alert, No apparent distress HEENT: Atraumatic, Normocephalic Oral: Moist Mucosa, No Gingival or Mucosal Lesions/ Ulcerations Neck: No Nodes, Thyroid Normal Size and Texture Lungs: Diminished, Wheezes, - - crackles Cardiovascular: Regular rate, Regular Rhythm, Normal S1, Normal S2, No murmurs Abdomen: Bowel Sounds Present, Soft, Non Tender, Non-Distended, No Hepato-splenomegaly Extremities: No edema, No Calf Tenderness Skin: No rashes, No breakdown Musculoskeletal: No Tenderness to Palpation of Joints or Extremities, No Muscle Wasting Psych/Mental Status: Normal Affect, Appropriate Microbiology Past 72 Hours 08/17/18 23:22 Mucosa - Nose Respiratory Panel (PCR) - Final RSV B Laboratory Results 08/17/18 16:00: WBC 11.8 H, RBC 4.53, Hgb 12.5, Hct 39.2, MCV 86.5, MCH 27.6, MCHC 31.9 L, RDW 15.8 H, RDW Differential 50.8 H, Plt Count 280, MPV 9.6, Immature Gran % (Auto) 0.200, Neut % (Auto) 86.5 H, Lymph % (Auto) 5.5 L, [place] % (Auto) 7.7, Eos % (Auto) 0.0, Baso % (Auto) 0.1, Absolute Neuts (auto) 10.2 H, Absolute Lymphs (auto) 0.65 L, Total Counted Not Reportable 08/17/18 16:00: Sodium 129 L, Potassium 4.1, Chloride 90 L, Carbon Dioxide 28.0, Anion Gap 11, BUN 17, Creatinine 0.60, Estim Creat Clear Calc 33.29, Est GFR (MDRD) Af Amer 124, Est GFR (MDRD) Non-Af 103, BUN/Creatinine Ratio 28.5 H, Glucose 263 H, Calcium 8.6 08/17/18 16:00: Lactic Acid 1.5 08/17/18 17:13: Urine Osmolality 695 08/17/18 17:13: Urine Creatinine 20.90 08/17/18 17:13: Urine Color Yellow, Urine Clarity Sl. Cloudy, Urine pH 7.0, Ur Specific Peck 1.010, Urine Protein 100 H, Urine Glucose (UA) 1000 H, Urine Ketones 15 H, Urine Occult Blood 25 H, Urine Nitrite Negative, Urine Bilirubin Negative, Urine Urobilinogen Normal, Ur Leukocyte Esterase Negative, Urine RBC 0-5 SEEN, Urine WBC 0 SEEN, Ur Squamous Epith Cells 0-5 SEEN, Urine Bacteria 0 SEEN, Urine Mucus 1+ 08/17/18 17:13: Urine Chloride 178 08/17/18 17:13: Ur Random Sodium 165 08/17/18 20:24: POC Glucose 271 H 08/17/18 21:04: Serum Osmolality 276 L 08/17/18 21:04: Troponin I < 0.015 08/17/18 21:04: B-Natriuretic Peptide 639.8 H 08/17/18 21:04: PT 17.1 H, INR 1.4 08/18/18 06:10: Sodium 129 L, Potassium 3.8, Chloride 94 L, Carbon Dioxide 28.0, Anion Gap 7, BUN 13, Creatinine 0.41 L, Estim Creat Clear Calc 33.29, Est GFR (MDRD) Af Amer 191, Est GFR (MDRD) Non-Af 158, BUN/Creatinine Ratio 31.7 H, Glucose 224 H, Calcium 8.2 L 08/18/18 06:10: WBC 7.6, RBC 3.89 L, Hgb 10.9 L, Hct 34.0 L, MCV 87.4, MCH 28.0, MCHC 32.1, RDW 15.7 H, RDW Differential 49.4 H, Plt Count 236, MPV 9.8, Immature Gran % (Auto) 0.100, Neut % (Auto) 79.0 H, Lymph % (Auto) 12.2 L, [place] % (Auto) 8.6, Eos % (Auto) 0.0, Baso % (Auto) 0.1, Absolute Neuts (auto) 6.0, Absolute Lymphs (auto) 0.93, Total Counted Not Reportable 08/18/18 06:10: TSH 1.44 08/18/18 06:12: POC Glucose 244 H 08/18/18 11:26: POC Glucose 321 H CXR reviewed and showed no acute process, however, right hemidiaphragm more elevated than it has been in the past (2017) Current Medications Albuterol Sulfate (Ventolin Aerosols) 2.5 mg INHALATION Q4H PRN PRN PRN Reason: Shortness of breath, wheezing Albuterol/Ipratropium (Duoneb) 3 ml INHALATION Q6H.RT [facility] Last Admin: 08/18/18 07:34 Dose: 3 ml Apixaban (Eliquis) 5 mg PO BID [facility] Last Admin: 08/18/18 07:51 Dose: 5 mg Aspirin (Aspirin, Baby) 81 mg PO DAILY@0800 [facility] Last Admin: 08/18/18 07:49 Dose: 81 mg Atorvastatin Calcium (Lipitor) 20 mg PO DAILY@2200 [facility] Last Admin: 08/17/18 22:35 Dose: 20 mg Benzonatate (Tessalon Perle) 100 mg PO TID PRN PRN PRN Reason: COUGH [facility] Admin: 08/18/18 07:49 Dose: 4 mg Levofloxacin (Levaquin Iv) 750 mg in 150 mls @ 100 mls/hr IV Q48@2200 [facility] Insulin Human Lispro (Humalog Kwikpen (Bkc)) 0 unit SC ACHS [facility]; Protocol Last Admin: 08/18/18 06:13 Dose: 3 u Linagliptin (Tradjenta) 5 mg PO DAILY [facility] Last Admin: 08/18/18 07:51 Dose: 5 mg Lisinopril (Zestril) 5 mg PO BID [facility] Last Admin: 08/18/18 07:51 Dose: 5 mg Magnesium Hydroxide (Milk Of Magnesia) 30 ml PO DAILY PRN PRN PRN Reason: Constipation Menthol (Bengay Vanishing Scent) 1 applic TOPICAL TID PRN PRN PRN Reason: MILD PAIN (-10/27) Metformin HCl (Gluc[facility]) [facility] Last Admin: 08/18/18 07:50 Dose: 1,000 mg Nutritional Formula (Lactose Free) (Glucerna Shake) 120 ml PO 4X/DAY [facility] Last Admin: 08/18/18 09:46 Dose: 120 ml Pioglitazone HCl (Actos) 30 mg PO DAILY@0800 [facility] Last Admin: 08/18/18 07:49 Dose: 30 mg Polysaccharide Iron Complex (Ferrex 150) 150 mg PO DAILYCM [facility] Last Admin: 08/18/18 07:50 Dose: 150 mg Sodium Chloride () 5 - 15 ml IV UD PRN PRN Reason: SALINE FLUSH Tolterodine Tartrate (Detrol La) 4 mg PO DAILY [facility] Last Admin: 08/18/18 07:51 Dose: 4 mg Medical Necessity - Tobacco Use Smoking Status: Never smoker Assessment/Plan All Active Problems (Last Updated 08/17/18 @ 18:07 by William Hamilton MD) Bronchitis (Acute) Hyponatremia (Acute) 1. Acute viral bronchitis No obvious infiltrate on CXR + RSV B on empiric LVQ start prednisone 2. Hyponatremia has been low in the past TSH normal, she does not take HCTZ Labs more consistent with SIADH, but will need to rule out adrenal insufficiency (i.e., check ACTH stim test--if normal, then SIADH, if abnormal (low) then may be due to adrenal insufficiency) fluid restrict 1500cc/d for now, may need to be more restrictive depending on sodium 3. DM2 uncontrolled on numerous oral agents (metformin, amaryl, actos, tradjenta) A1C was 13.6 in April For now: monitor glucose, check an A1C I suspect patient requires insulin as it appears that the 4 oral agents are ineffective 4. Elevated Right hemidiaphragm not present in [address] consider Sniff test Pulm eval can be outpt. Code Visit Inpatient E&M: 29773 Subs Hosp L2
--- NOTE | 2018-08-18 11:44 | PN_ITS ---
Patient Problems: Active and Suspected Problems (Last Updated 08/17/18 @ 18:07 by William Hamilton MD) Bronchitis (Acute) Hyponatremia (Acute) Subjective: feels better. coughing. Vitals/I&O's: Vital Signs Temp Pulse Resp BP Pulse Ox 36.5 C L 91 20 H 122/64 H 93 08/18/18 07:15 08/18/18 10:00 08/18/18 07:34 08/18/18 07:15 08/18/18 07:34 Oxygen Delivery Method Room Air Weight: 58.8 kg Body Mass Index (BMI) 24.5 Finger Stick Blood Glucose 394 Intake and Output for Last 24 Hours 08/16/18 08/17/18 08/18/18 23:59 23:59 23:59 Intake Total 120 / 120 Balance 120 / 120 General: Alert, No apparent distress HEENT: Atraumatic, Normocephalic Oral: Moist Mucosa, No Gingival or Mucosal Lesions/ Ulcerations Neck: No Nodes, Thyroid Normal Size and Texture Lungs: Diminished, Wheezes, - - crackles Cardiovascular: Regular rate, Regular Rhythm, Normal S1, Normal S2, No murmurs Abdomen: Bowel Sounds Present, Soft, Non Tender, Non-Distended, No Hepato- splenomegaly Extremities: No edema, No Calf Tenderness Skin: No rashes, No breakdown Musculoskeletal: No Tenderness to Palpation of Joints or Extremities, No Muscle Wasting Psych/Mental Status: Normal Affect, Appropriate Microbiology Past 72 Hours 08/17/18 23:22 Mucosa - Nose Respiratory Panel (PCR) - Final RSV B Laboratory Results 08/17/18 16:00: WBC 11.8 H, RBC 4.53, Hgb 12.5, Hct 39.2, MCV 86.5, MCH 27.6, MCHC 31.9 L, RDW 15.8 H, RDW Differential 50.8 H, Plt Count 280, MPV 9.6, Immature Gran % (Auto) 0.200, Neut % (Auto) 86.5 H, Lymph % (Auto) 5.5 L, Lander % (Auto) 7.7, Eos % (Auto) 0.0, Baso % (Auto) 0.1, Absolute Neuts (auto) 10.2 H, Absolute Lymphs (auto) 0.65 L, Total Counted Not Reportable 08/17/18 16:00: Sodium 129 L, Potassium 4.1, Chloride 90 L, Carbon Dioxide 28.0, Anion Gap 11, BUN 17, Creatinine 0.60, Estim Creat Clear Calc 33.29, Est GFR (MDRD) Af Amer 124, Est GFR (MDRD) Non-Af 103, BUN/Creatinine Ratio 28.5 H, Glucose 263 H, Calcium 8.6 08/17/18 16:00: Lactic Acid 1.5 08/17/18 17:13: Urine Osmolality 695 08/17/18 17:13: Urine Creatinine 20.90 08/17/18 17:13: Urine Color Yellow, Urine Clarity Sl. Cloudy, Urine pH 7.0, Ur Specific [place] 1.010, Urine Protein 100 H, Urine Glucose (UA) 1000 H, Urine Ketones 15 H, Urine Occult Blood 25 H, Urine Nitrite Negative, Urine Bilirubin Negative, Urine Urobilinogen Normal, Ur Leukocyte Esterase Negative, Urine RBC 0-5 SEEN, Urine WBC 0 SEEN, Ur Squamous Epith Cells 0-5 SEEN, Urine Bacteria 0 SEEN, Urine Mucus 1+ 08/17/18 17:13: Urine Chloride 178 08/17/18 17:13: Ur Random Sodium 165 08/17/18 20:24: POC Glucose 271 H 08/17/18 21:04: Serum Osmolality 276 L 08/17/18 21:04: Troponin I < 0.015 08/17/18 21:04: B-Natriuretic Peptide 639.8 H 08/17/18 21:04: PT 17.1 H, INR 1.4 08/18/18 06:10: Sodium 129 L, Potassium 3.8, Chloride 94 L, Carbon Dioxide 28.0, Anion Gap 7, BUN 13, Creatinine 0.41 L, Estim Creat Clear Calc 33.29, Est GFR (MDRD) Af Amer 191, Est GFR (MDRD) Non-Af 158, BUN/Creatinine Ratio 31.7 H, Glucose 224 H, Calcium 8.2 L 08/18/18 06:10: WBC 7.6, RBC 3.89 L, Hgb 10.9 L, Hct 34.0 L, MCV 87.4, MCH 28.0, MCHC 32.1, RDW 15.7 H, RDW Differential 49.4 H, Plt Count 236, MPV 9.8, Immature Gran % (Auto) 0.100, Neut % (Auto) 79.0 H, Lymph % (Auto) 12.2 L, Lander % (Auto) 8.6, Eos % (Auto) 0.0, Baso % (Auto) 0.1, Absolute Neuts (auto) 6.0, Absolute Lymphs (auto) 0.93, Total Counted Not Reportable 08/18/18 06:10: TSH 1.44 08/18/18 06:12: POC Glucose 244 H 08/18/18 11:26: POC Glucose 321 H CXR reviewed and showed no acute process, however, right hemidiaphragm more elevated than it has been in the past (2017) Current Medications Albuterol Sulfate (Ventolin Aerosols) 2.5 mg INHALATION Q4H PRN PRN PRN Reason: Shortness of breath, wheezing Albuterol/Ipratropium (Duoneb) 3 ml INHALATION Q6H.RT [facility] Last Admin: 08/18/18 07:34 Dose: 3 ml Apixaban (Eliquis) 5 mg PO BID [facility] Last Admin: 08/18/18 07:51 Dose: 5 mg Aspirin (Aspirin, Baby) 81 mg PO DAILY@0800 [facility] Last Admin: 08/18/18 07:49 Dose: 81 mg Atorvastatin Calcium (Lipitor) 20 mg PO DAILY@2200 [facility] Last Admin: 08/17/18 22:35 Dose: 20 mg Benzonatate (Tessalon Perle) 100 mg PO TID PRN PRN PRN Reason: COUGH [facility] Last Admin: 08/18/18 07:49 Dose: 4 mg Levofloxacin (Levaquin Iv) 750 mg in 150 mls @ 100 mls/hr IV Q48@2200 [facility] Insulin Human Lispro (Humalog Kwikpen (Bkc)) 0 unit SC ACHS [facility]; Protocol Last Admin: 08/18/18 06:13 Dose: 3 u Linagliptin (Tradjenta) 5 mg PO DAILY [facility] Last Admin: 08/18/18 07:51 Dose: 5 mg Lisinopril (Zestril) 5 mg PO BID [facility] Last Admin: 08/18/18 07:51 Dose: 5 mg Magnesium Hydroxide (Milk Of Magnesia) 30 ml PO DAILY PRN PRN PRN Reason: Constipation Menthol (Bengay Vanishing Scent) 1 applic TOPICAL TID PRN PRN PRN Reason: MILD PAIN (-10/27) [facility] Last Admin: 08/18/18 07:50 Dose: 1,000 mg Nutritional Formula (Lactose Free) (Glucerna Shake) 120 ml PO 4X/DAY [facility] Last Admin: 08/18/18 09:46 Dose: 120 ml Pioglitazone HCl (Actos) 30 mg PO DAILY@0800 [facility] Last Admin: 08/18/18 07:49 Dose: 30 mg Polysaccharide Iron Complex (Ferrex 150) 150 mg PO DAILYCM [facility] Last Admin: 08/18/18 07:50 Dose: 150 mg Sodium Chloride () 5 - 15 ml IV UD PRN PRN Reason: SALINE FLUSH Tolterodine Tartrate (Detrol La) 4 mg PO DAILY [facility] Last Admin: 08/18/18 07:51 Dose: 4 mg Medical Necessity - Tobacco Use Smoking Status: Never smoker Assessment/Plan All Active Problems (Last Updated 08/17/18 @ 18:07 by William Hamilton MD) Bronchitis (Acute) Hyponatremia (Acute) 1. Acute viral bronchitis * No obvious infiltrate on CXR * + RSV B * on empiric LVQ * start prednisone 2. Hyponatremia * has been low in the past * TSH normal, she does not take HCTZ * Labs more consistent with SIADH, but will need to rule out adrenal insufficiency (i.e., check ACTH stim test--if normal, then SIADH, if abnormal (low) then may be due to adrenal insufficiency) * fluid restrict 1500cc/d for now, may need to be more restrictive depending on sodium 3. DM2 * uncontrolled * on numerous oral agents (metformin, amaryl, actos, tradjenta) * A1C was 13.6 in April * For now: monitor glucose, check an A1C * I suspect patient requires insulin as it appears that the 4 oral agents are ineffective 4. Elevated Right hemidiaphragm * not present in 2017 * check CT * consider Sniff test * Pulm eval can be outpt. Code Visit Inpatient E&M: 21508 Subs Hosp L2
--- NOTE | 2018-08-18 11:45 | CT_ITS ---
STUDY: CT CHEST WITH CONTRAST REASON FOR EXAM: Female, 83 years old. CABG, bronchitis RADIATION DOSAGE (If Supplied By Facility): CTDIvol = ( 13.81 ) mGy, DLP = ( 344.03 ) mGycm TECHNIQUE: Transaxial imaging was performed following intravenous administration of 100 ml of Isovue 300 contrast material. Multiplanar coronal and sagittal images were reformatted. Individualized dose optimization techniques were used for this CT. COMPARISON: None. FINDINGS: Lungs are under expanded with peribronchial cuffing and atelectasis involving the right middle lobe, lingula and right more than left lower lobes. No dense airspace consolidation or cavitating process identified. There is no demonstrated pleural abnormality. There is mild cardiac enlargement. Sternal wires and mediastinal surgical clips compatible with prior CABG. Mitral valve calcifications. Normal mediastinum. Normal hilar regions. Normal enhanced pulmonary arteries. There is atherosclerotic calcification of the aortic arch with tortuosity and elongation of the aortic arch and descending thoracic aorta. There are multi-level degenerative changes of the thoracic spine. Heterogeneity of the spleen likely due to phase of imaging (arterial). CT/Chest WITH Contrast IMPRESSION: 1. Peribronchial thickening and basilar dominant atelectasis compatible with history provided of bronchitis/hypoventilation. No airspace consolidation or cavitating process. 2. CABG. 3. Atherosclerosis. Electronically Signed: Huang Lakhani MD at 17:45 EST , Service support ,
[2018-08-18] MEDS: Furosemide 40 MG Tablet PO (12:17)
[2018-08-18 12:31] LABS: Hemoglobin A1c 10.4 % (4.2-6.3)
[2018-08-18 16:40] LABS: Bedside Glucose 198 mg/dL (70-110)
[2018-08-18] MEDS: Atorvastatin Calcium 20 MG Tablet PO (20:11)
[2018-08-18 20:16] LABS: Bedside Glucose 167 mg/dL (70-110)
[2018-08-18] MEDS: Benzonatate 100 MG Capsule PO (22:58)
[2018-08-19] VITALS (20 sets, daily range): BP systolic 121–166; BP diastolic 68–82; PULSE 70–111; RESP 16–24; TEMP 36.8–37.1; O2SAT 88–100
[2018-08-19] MEDS: Ipratropium/Albuterol Sulfate 3 ML AMPUL.NEB INHALATION ×4 (01:04→20:32)
[2018-08-19] MEDS: guaiFENesin 1,200 MG Tablet 1200 MG PO ×3 (04:34→22:50)
[2018-08-19 05:58] LABS: Anion Gap 9 (5-15); BUN 16 mg/dL (7-18); BUN/Creat Ratio 32.1 RATIO (10-20); Calcium,Total 8.5 mg/dL (8.5-10.1); Chloride 90 mmol/L (98-107); EST Glomerular Filtration Rate 126 mL/min (>60); Est Glom Filt Rate - Afr Amer 153 mL/min (>60); Estimated Creatinine Clearance 33.29 ml/min; Glucose 155 mg/dL (74-106); Potassium 4.1 mmol/L (3.5-5.1); Sodium Level 130 mmol/L (136-145)
[2018-08-19] MEDS: Cosyntropin 0.25 MG Vial IV (06:17)
[2018-08-19 07:37] LABS: Bedside Glucose 130 mg/dL (70-110)
[2018-08-19] MEDS: Pioglitazone Hydrochloride 30 MG Tablet PO (09:40)
[2018-08-19] MEDS: Iron Polysaccharide Complex 150 MG CAPSULE PO (09:41)
[2018-08-19] MEDS: metFORMIN HCl 1,000 MG Tablet 1000 MG PO ×2 (09:41→16:55)
[2018-08-19] MEDS: Glimepiride 4 MG Tablet PO ×2 (09:41→16:55)
[2018-08-19] MEDS: Lisinopril 5 MG Tablet PO ×2 (09:41→22:50)
[2018-08-19] MEDS: Tolterodine Tartrate 4 MG CAP.SA PO (09:41)
[2018-08-19] MEDS: LINAGLIPTIN 5 MG TABLET PO (09:41)
[2018-08-19] MEDS: Aspirin 81 MG TAB.CHEW PO (09:41)
[2018-08-19] MEDS: Furosemide 40 MG Tablet PO (09:42)
[2018-08-19] MEDS: APIXABAN 5 MG TABLET PO ×2 (09:42→22:50)
[2018-08-19] MEDS: Glucerna Shake 120 ML LIQUID PO ×4 (09:44→22:50)
--- NOTE | 2018-08-19 10:10 | CASEMGMT ---
ROSARIO GRIFFITH Face to Face with patient for initial transition planning/care coordination assessment. RN NACHO introduced self and role at [facility]. Patient lying in bed, alert and oriented. Patient willing to participate in assessment and is able to answer all questions appropriately. Care providers, pharmacy, and demographics verified. Patient wishes to discharge home, denies need for home health care. Patient states she has no further needs or concerns at this time. CM to continue to follow patient for discharge needs. PCP: Charlene Specialists: None Preferred Pharmacy: [facility] Insurance: [facility] Prescription Benefit: Yes Living Will/HPOA: Yes, Sister Akanksha Curran HPOA LNOK: Sister in [place] Living Arrangements: Patient lives alone in house with bed and bath on first floor. Patient states she is independent. Transportation: Self or friend DME/HHC: Patient has cane and walker. Denies HHC. Will monitor for need for home oxygen Disposition Plan: Patient to discharge home with support of friend and follow-up plans in place. Inga CELAYA, RN, CM
[2018-08-19] MEDS: Insulin Lispro 100 UNIT/ML INSULN.PEN SC ×2 (11:25→16:55)
[2018-08-19 11:56] LABS: Bedside Glucose 448 mg/dL (70-110)
--- NOTE | 2018-08-19 15:46 | CHAPLAIN ---
patient was sleeping, left calling card
[2018-08-19 17:25] LABS: Bedside Glucose 336 mg/dL (70-110)
--- NOTE | 2018-08-19 21:29 | PN_ITS ---
Patient Problems: Active and Suspected Problems (Last Updated 08/17/18 @ 18:07 by William Hamilton MD) Hyponatremia (Acute) Bronchitis (Acute) Subjective: Patient is an 83-year-old female who lives by herself. Her past medical history is significant for nonrheumatic mitral and tricuspid valve insufficiency, hypertension, anxiety/depression, venous insufficiency of both lower extremities, venous stasis ulcerations of both lower extremities, diabetes mellitus type 2, PAF, history of aortic valve replacement with a bioprosthetic valve in June 2016, hyperlipidemia and pulmonary hypertension who presented to the emergency department at [facility] on 08/17/2018 complaining of cough and shortness of breath. Vital signs in the emergency department at presentation were temp 98.4, pulse rate 100, blood pressure 186/100, respiratory rate 20 and she was 94% saturated on room air. Significant lab included an elevated white blood cell count at 11.8 with 86% neutrophils. Sodium was low at 129 and the chloride was 90. BUN was 17 with a creatinine of 0.6 which is within her baseline. Lactic acid was 1.5. BNP was elevated at 639.8. UA had 0 WBCs. Chest x-ray showed no acute processes. Respiratory panel is positive for RSV B. All events of the past 24 hours of been reviewed. She is afebrile. Vital signs are stable. Pulse ox on room air ranges from 88- 95%. She is complaining of dyspnea on exertion and she continues to have cough. She denies chest pain. Objective: PHYSICAL EXAM: GENERAL: alert, oriented X 3, Cooperative, NAD ORAL: moist mucosa, no mucosal lesions NECK: No JVD, supple, trachea midline LUNGS: diminished with expiratory wheezing and coarse crackles, symmetric chest expansion HEART: RRR, Normal S1 and S2, no rub, no gallop ABDOMEN: soft, NT, ND, BS present, no guarding with palpation EXTREMITIES: + edema, no cyanosis, no calf tenderness SKIN: No rashes, no breakdown...the R great toe has a small amount of redness at the base of the nail without DC and there is a small ulceration on the distal RLE medially which appears to be healing. She also has an ulceration of the left foot. NEUROLOGIC: no focal neurologic deficits PSYCH: appropriate, normal affect, pleasant - Physical Exam Vital Signs Temp Pulse Resp BP Pulse Ox 98.3 F 108 H 20 H 132/72 H 88 08/19/18 13:52 08/19/18 20:32 08/19/18 20:32 08/19/18 13:52 08/19/18 20:35 Oxygen Flow Rate (L/min) 2 Oxygen Delivery Method Room Air Weight: 129 lb 10.109 oz Body Mass Index (BMI) 24.5 Finger Stick Blood Glucose 394 Intake and Output for Last 24 Hours 08/17/18 08/18/18 08/19/18 23:59 23:59 23:59 Intake Total 900 / 900 1320 / 1320 Balance 900 / 900 1320 / 1320 Microbiology Past 72 Hours 08/18/18 07:50 Gram Stain - Final Sputum, Expectorated/Coughed Respiratory Culture - Preliminary Appears to be normal respiratory lisa. Further studies to follow. 08/17/18 23:22 Respiratory Panel (PCR) - Final Mucosa - Nose RSV B Laboratory Tests Past 24 Hrs 08/19/18 08/19/18 08/19/18 05:14 05:14 06:47 Sodium 130 L Potassium 4.1 Chloride 90 L Carbon Dioxide 31.0 Anion Gap 9 BUN 16 Creatinine 0.50 L Estim Creat Clear Calc 33.29 Est GFR (MDRD) Af Amer 153 Est GFR (MDRD) Non-Af 126 BUN/Creatinine Ratio 32.1 H Glucose 155 H Calcium 8.5 Cortisol 26.50 H 38.90 H 08/19/18 07:20 Sodium Potassium Chloride Carbon Dioxide Anion Gap BUN Creatinine Estim Creat Clear Calc Est GFR (MDRD) Af Amer Est GFR (MDRD) Non-Af BUN/Creatinine Ratio Glucose Calcium Cortisol 48.60 H POC Glucose 08/19/18 08/19/18 08/19/18 16:53 11:23 06:41 POC Glucose 336 H 448 H 130 H Medical Necessity - Tobacco Use Smoking Status: Never smoker Assessment/Plan All Active Problems (Last Updated 08/17/18 @ 18:07 by William Hamilton MD) Hyponatremia (Acute) Bronchitis (Acute) Impressions 1. Acute viral bronchitis secondary to RSV B 2. 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 Cortisol and TSH are within normal limits 3. Diabetes mellitus type 2-uncontrolled. Current hemoglobin A1c is 10.4. On 4 oral agents at admission. Likely will need to go on insulin or be compliant with diet. 4. Elevated right hemidiaphragm 5. Depression/anxiety 6. Atrial fibrillation 7. Hypertension 8. History of aortic valve replacement with bioprosthetic valve 9. Hyperlipidemia 10. Moderate pulmonary hypertension-pulmonary pressure is estimated at 49 on echocardiogram 11. Moderate concentric left ventricular hypertrophy with preserved ejection fraction of 65%. 12. Biatrial enlargement, left greater than right 13. Moderate mitral valve insufficiency 14. Moderately severe tricuspid insufficiency, 3+ 15. Chronic anticoagulation with apixaban 16. Chronic renal failure stage III Change the insulin protocol to high dosing Likely needs to go on insulin as an outpatient because blood sugars are not adequately controlled with 4 different agents including Tradjenta, metformin, pioglitazone, Amaryl Fluid restrict to 1000 cc daily Convert Levaquin to p.o. Continue prednisone and aerosols We did discuss possible SNF at discharge but she is adamantly opposed to home health and SNF. She admits to having to live with her neighbor recently because she was too weak at home. Code Visit Inpatient E&M: 50625 Subs Hosp L2
[2018-08-19] MEDS: Benzonatate 100 MG Capsule PO (22:50)
[2018-08-19] MEDS: Atorvastatin Calcium 20 MG Tablet PO (22:50)
[2018-08-19] MEDS: levoFLOXacin 750 MG Tablet PO (22:59)
[2018-08-20] VITALS (16 sets, daily range): BP systolic 117–181; BP diastolic 51–95; PULSE 75–110; RESP 16–26; TEMP 36.9–37.2; O2SAT 88–98
[2018-08-20 00:41] LABS: Bedside Glucose 97 mg/dL (70-110)
[2018-08-20] MEDS: Ipratropium/Albuterol Sulfate 3 ML AMPUL.NEB INHALATION ×3 (01:41→13:54)
[2018-08-20] MEDS: cloNIDine HCl 0.1 MG Tablet PO (06:27)
[2018-08-20] MEDS: Insulin Lispro 100 UNIT/ML INSULN.PEN SC ×3 (06:27→17:34)
[2018-08-20 06:55] LABS: Bedside Glucose 202 mg/dL (70-110)
[2018-08-20] MEDS: Iron Polysaccharide Complex 150 MG CAPSULE PO (11:12)
[2018-08-20] MEDS: guaiFENesin 1,200 MG Tablet 1200 MG PO ×2 (11:12→22:49)
[2018-08-20] MEDS: Glucerna Shake 120 ML LIQUID PO ×3 (11:12→22:49)
[2018-08-20] MEDS: APIXABAN 5 MG TABLET PO ×2 (11:12→22:49)
[2018-08-20] MEDS: Glimepiride 4 MG Tablet PO ×2 (11:13→17:34)
[2018-08-20] MEDS: Aspirin 81 MG TAB.CHEW PO (11:13)
[2018-08-20] MEDS: LINAGLIPTIN 5 MG TABLET PO (11:13)
[2018-08-20] MEDS: Lisinopril 5 MG Tablet PO ×2 (11:13→22:49)
[2018-08-20] MEDS: Tolterodine Tartrate 4 MG CAP.SA PO (11:13)
[2018-08-20] MEDS: metFORMIN HCl 1,000 MG Tablet 1000 MG PO ×2 (11:13→17:34)
[2018-08-20] MEDS: Pioglitazone Hydrochloride 30 MG Tablet PO (11:13)
--- NOTE | 2018-08-20 13:47 | PCM.PROGNOTE ---
Subjective: She is complaining of feeling very tired today and not sleeping well last night. She is now able to better cough up sputum. Denies chest pain today. Appetite is very poor. All events of the past 24 hours of been reviewed. She is currently 98% on a 2 L nasal cannula with stable vital signs. Blood sugars are improving with adjustments in the insulin. Fasting blood sugar today was 202. At bedtime sugar was 97. Objective: PHYSICAL EXAM: GENERAL: alert, oriented X 3, Cooperative, NAD ORAL: moist mucosa, no mucosal lesions NECK: No JVD, supple, trachea midline LUNGS: diminished with expiratory wheezing and coarse crackles, symmetric chest expansion HEART: RRR, Normal S1 and S2, no rub, no gallop ABDOMEN: soft, NT, ND, BS present, no guarding with palpation EXTREMITIES: + edema, no cyanosis, no calf tenderness SKIN: No rashes, no breakdown...the R great toe has a small amount of redness at the base of the nail without DC and there is a small ulceration on the distal RLE medially which appears to be healing. She also has an ulceration of the left foot. NEUROLOGIC: no focal neurologic deficits PSYCH: appropriate, normal affect, pleasant - Physical Exam Vital Signs Temp Pulse Resp BP Pulse Ox 98.6 F 104 H 20 H 140/72 H 98 08/20/18 11:00 08/20/18 11:31 08/20/18 11:00 08/20/18 11:00 08/20/18 11:00 Oxygen Flow Rate (L/min) 2 Oxygen Delivery Method Nasal Cannula Weight: 129 lb 10.109 oz Body Mass Index (BMI) 24.5 Finger Stick Blood Glucose 394 Intake and Output for Last 24 Hours 08/18/18 08/19/18 08/20/18 23:59 23:59 23:59 Intake Total 900 / 900 1320 / 1320 595 / 595 Output Total 100 / 100 Balance 900 / 900 1320 / 1320 495 / 495 Microbiology Past 72 Hours 08/18/18 10:15 Urine Culture - Final Urine, Clean Catch Mixed Gram Positive Organisms 08/18/18 07:50 Gram Stain - Final Sputum, Expectorated/Coughed Respiratory Culture - Final Mixed normal respiratory lisa. No Haemophilus, Streptococcus pneumoniae, beta-hemolytic Streptococcus or Staphylococcus aureus isolated. 08/17/18 23:22 Respiratory Panel (PCR) - Final Mucosa - Nose RSV B POC Glucose 08/20/18 08/19/18 08/19/18 06:26 22:58 16:53 POC Glucose 202 H 97 336 H Medical Necessity - Tobacco Use Smoking Status: Never smoker Assessment/Plan All Active Problems (Last Updated 08/17/18 @ 18:07 by William Hamilton MD) Chronic anticoagulation (Acute) Hyponatremia (Resolved) Bronchitis (Acute) Impressions 1. Acute viral bronchitis secondary to RSV B 2. 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 Cortisol and TSH are within normal limits 3. Diabetes mellitus type 2-uncontrolled. Current hemoglobin A1c is 10.4. On 4 oral agents at admission. Likely will need to go on insulin or be compliant with diet. 4. Elevated right hemidiaphragm 5. Depression/anxiety 6. Atrial fibrillation 7. Hypertension 8. History of aortic valve replacement with bioprosthetic valve 9. Hyperlipidemia 10. Moderate pulmonary hypertension-pulmonary pressure is estimated at 49 on echocardiogram 11. Moderate concentric left ventricular hypertrophy with preserved ejection fraction of 65%. 12. Biatrial enlargement, left greater than right 13. Moderate mitral valve insufficiency 14. Moderately severe tricuspid insufficiency, 3+ 15. Chronic anticoagulation with apixaban 16. Chronic renal failure stage III Continue to adjust insulin Continue prednisone and aerosolized bronchodilators Continue p.o. Levaquin for a total of 7 days I again encouraged her to go to long-term prior to returning home because she is very weak and she needs strengthening Code Visit Inpatient E&M: 73646 Subs Hosp L2
[2018-08-20] MEDS: Mag Hydrox/Al Hydrox/Simeth 30 ML UDC 15 ML PO ×2 (15:57→19:59)
--- NOTE | 2018-08-20 16:35 | NURSING ---
female phoned in, states she is Akanksha Curran pt sister. voices concern about pt home situation- states she has let her house go and it is filthy. informed will pass on her concerns to case managment- Akanksha reports that case management is already aware.
[2018-08-20 17:32] LABS: Bedside Glucose 238 mg/dL (70-110)
[2018-08-20 17:47] LABS: Bedside Glucose 190 mg/dL (70-110)
[2018-08-20] MEDS: Benzonatate 100 MG Capsule PO (20:00)
[2018-08-20] MEDS: Atorvastatin Calcium 20 MG Tablet PO (22:49)
[2018-08-20] MEDS: MELATONIN 3 MG TABLET 6 MG PO (22:49)
[2018-08-20 23:06] LABS: Bedside Glucose 119 mg/dL (70-110)
[2018-08-20] MEDS: Albuterol 2.5 MG/3 ML VIAL.NEB. INHALATION (23:10)
--- NOTE | 2018-08-20 23:11 | NURSING ---
cps called for breathing treatment for pt
[2018-08-21] VITALS (14 sets, daily range): BP systolic 101–156; BP diastolic 44–80; PULSE 79–104; RESP 16–20; TEMP 36.4–37; O2SAT 86–98
[2018-08-21] MEDS: Benzonatate 100 MG Capsule PO (04:01)
[2018-08-21] MEDS: 0.9% NaCl Peripheral Flush Adult/Peds IV ×2 (04:02→13:54)
[2018-08-21] MEDS: Albuterol 2.5 MG/3 ML VIAL.NEB. INHALATION (05:40)
[2018-08-21 06:13] LABS: Absolute Lymphocyte Count 1.35 X10^3/ul (0.83-4.51); Basophil# 0.02 X10^3/uL; Basophil% 0.2 % (0-1); Eosinophil# 0.03 X10^3/uL; Eosinophils% 0.4 % (0-5); Hematocrit 38.4 % (37-47); Lymphocyte # 1.35 X10^3/ul (4.0); Lymphocyte % 16.5 % (19-41); Mean Corp Hgb Conc 31.3 g/gl (32-36); Mean Corpuscular Hgb 27.6 pg (27.0-32.0); Mean Corpuscular Volume 88.5 fL (81-99); Mean Platelet Vol. 9.4 fl (6.2-12.0); Monocyte# 0.75 X10^3/uL; Monocyte% 9.2 % (0-10); Neutrophil # 5.99 X10^3/uL (2.7-7.7); Neutrophil % 73.3 % (47-70); Platelet Count 284 K/mm3 (150-450); RBC Distribution Width CV 15.6 % (11.6-14.6); RBC Distribution Width SD 50.6 fl (35.1-43.9); Red Blood Count 4.34 M/mm3 (4.2-5.4); White Blood Count 8.2 K/mm3 (4.4-11.0)
[2018-08-21 06:15] LABS: POSITIVE COUNT NO; POSITIVE DIFFERENTIAL NO; POSITIVE MORPHOLOGY NO
[2018-08-21 06:35] LABS: ALB/GLOB Ratio 0.8 RATIO (0.9-2.4); AST(SGOT) 12 U/L (15-37); Alanine Aminotransfer ALT/SGPT 13 U/L (13-56); Albumin, Serum 2.8 g/dL (3.2-5.0); Alkaline Phosphatase 79 U/L (45-117); Anion Gap 8 (5-15); BUN 22 mg/dL (7-18); BUN/Creat Ratio 41.9 RATIO (10-20); Calcium,Total 8.4 mg/dL (8.5-10.1); Chloride 91 mmol/L (98-107); Creatinine, Serum 0.52 mg/dL (0.55-1.02); EST Glomerular Filtration Rate 119 mL/min (>60); Est Glom Filt Rate - Afr Amer 144 mL/min (>60); Estimated Creatinine Clearance 33.29 ml/min; Globulin 3.5 g/dL (2.2-4.2); Glucose 70 mg/dL (74-106); Magnesium 1.7 mg/dL (1.6-2.6); Phosphorus 3.3 mg/dL (2.5-4.9); Potassium 3.9 mmol/L (3.5-5.1); Protein, Total 6.3 g/dL (6.4-8.2); Sodium Level 134 mmol/L (136-145)
[2018-08-21 06:40] LABS: Bedside Glucose 75 mg/dL (70-110)
[2018-08-21] MEDS: Ipratropium/Albuterol Sulfate 3 ML AMPUL.NEB INHALATION ×3 (07:44→19:08)
[2018-08-21] MEDS: 0.9% Normal Saline 1,000 ML 500 ML IV (08:36)
[2018-08-21] MEDS: Tolterodine Tartrate 4 MG CAP.SA PO (08:37)
[2018-08-21] MEDS: guaiFENesin 1,200 MG Tablet 1200 MG PO ×2 (08:37→21:54)
[2018-08-21] MEDS: Pioglitazone Hydrochloride 30 MG Tablet PO (08:37)
[2018-08-21] MEDS: Aspirin 81 MG TAB.CHEW PO (08:37)
[2018-08-21] MEDS: metFORMIN HCl 1,000 MG Tablet 1000 MG PO ×2 (08:37→16:13)
[2018-08-21] MEDS: APIXABAN 5 MG TABLET PO ×2 (08:37→21:53)
[2018-08-21] MEDS: Glimepiride 4 MG Tablet PO ×2 (08:37→16:13)
[2018-08-21] MEDS: Lisinopril 5 MG Tablet PO ×2 (08:37→21:54)
[2018-08-21] MEDS: LINAGLIPTIN 5 MG TABLET PO (08:37)
[2018-08-21] MEDS: Glucerna Shake 120 ML LIQUID PO ×2 (08:37→13:41)
[2018-08-21] MEDS: Iron Polysaccharide Complex 150 MG CAPSULE PO (08:38)
--- NOTE | 2018-08-21 09:13 | NURSING ---
wound photo: right medial lower leg
--- NOTE | 2018-08-21 09:14 | NURSING ---
wound photo: left medial foot
[2018-08-21] MEDS: Insulin Lispro 100 UNIT/ML INSULN.PEN SC ×3 (11:27→21:56)
[2018-08-21 12:16] LABS: Bedside Glucose 411 mg/dL (70-110)
--- NOTE | 2018-08-21 14:31 | CHAPLAIN ---
Type of Pastoral Visit _x__ Initial Visit ___ Follow-up Visit ___ On-call Visit ___ General Patient Visit ___ Spiritual Assessment ___ Family Conference ___ Bereavement ___ Rapid Response ___ Code Blue ___ Other (describe below) Pastoral Care Referral From _x__ Patient ___ Family ___ Nurse ___ Physician ___ Gray Mixing Operator ___ Senior Receptionist ___ Other (describe below) Sacrament/Intervention _x__ Active listening ___ Anointing ___ Baptist ___ Bereavement ___ Communion _x__ Britt exploration ___ _x__ Life review _x__ Prayer ___ Reconciliation ___ Sacrament of Sick _x__ Supportive presence ___ Wedding ___ Other (describe below) Pastoral Comments
--- NOTE | 2018-08-21 15:13 | NURSING ---
Notified SW and CM that pt is agreeable and thinks shes being discharged today to somewhere where she will receive therapy
--- NOTE | 2018-08-21 15:17 | CASEMGMT ---
ROSARIO GRIFFITH updated by nursing the patient is wanting to go to SNF at discharge. ROSARIO GRIFFITH in to speak with patient regarding discharge planning. Patient states that she wants to go to TCU, updated that there are no beds available at this time in TCU. Patient states that she does not want to go to nurisng home if she cannot go to TCU. ROSARIO GRIFFITH explained that she would get the same care at a SNF as TCU. Patient requesting list with Medicare ratings for [facility] SNFs. ROSARIO GRIFFITH updated SILVIO Moulton regarding request for SNF and financial costs.
[2018-08-21 16:26] LABS: Bedside Glucose 190 mg/dL (70-110)
--- NOTE | 2018-08-21 16:58 | CASEMGMT ---
Addendum entered by Inga Moulton 08/21/18 17:17: Per nursing notes, pt's sister Akanksha had called to [facility] and informed RN that pt has let her house go and it is filty. SW placed a call to Kathie Campos with [facility] and left her a message informing her of pt's sister's concerns regarding pt's home. Original Note: Social Work Note SW received referral from RN NACHO Hussein stating pt is interested in SNF at discharge and wants Medicare Ratings. SW in to meet with pt. SW introduced self and role at [facility]. Pt is alert and orientated. Pt states that she will only go to SNF if her insurance pays for it. SW informed pt that she has used 30 days of her skilled days for Medicare and is in co-pay days. SW provided pt with Medicare Ratings sheet and encouraged pt to review list and to have 2-3 different options for SNF. SW informed pt that once pt decides on SNF this worker can send referral to SNF and the SNF can run pt's secondary insurance to confirm pt's secondary will cover co-pay. Pt states understanding and states she will review the list. SW updated physician. Plan: SNF pending acceptance Inga Moulton ELDER COUNSELOR, BID ANALYST
--- NOTE | 2018-08-21 17:56 | PN_ITS ---
Subjective: All events of the past 24 hours of been reviewed. She is afebrile with stable vital signs. She was 96% saturated on room air today. All lab was personally reviewed. White blood cell count is 8.2 today with 73% neutrophils. Hemoglobin and platelets are within normal limits. Sodium is mildly decreased at 134 and the chloride is 91. BUN is 22 with a creatinine of 0.52. Fasting blood sugar was low at 70 today and her insulin was held so the noon sugar was 411. Urine culture has mixed gram-positive organisms. Sputum culture had mixed normal respiratory lisa and the respiratory panel was positive for RSV B. She was able to ambulate 90 feet with a wheeled walker today. Physical therapy is suggesting she needs additional therapy. Appetite is improving. She tells me she fatigues easily and she is considering halfway at discharge. She continues to cough and is bringing up sputum. Denies chest pain. Objective: Physical examination GENERAL: alert, oriented X 3, Cooperative, NAD, more energetic today ORAL: moist mucosa, no mucosal lesions NECK: No JVD, supple, trachea midline LUNGS: diminished with coarse crackles, no wheezing today, symmetric chest expansion, no conversational dyspnea, not tachypneic, no accessory muscle use HEART: RRR, Normal S1 and S2, no rub, no gallop ABDOMEN: soft, NT, ND, BS present, no guarding with palpation EXTREMITIES: No edema, no cyanosis, no calf tenderness SKIN: No rashes, no breakdown...the R great toe has a small amount of redness at the base of the nail without DC and there is a small ulceration on the distal RLE medially which appears to be healing. She also has an ulceration of the left foot. NEUROLOGIC: no focal neurologic deficits PSYCH: appropriate, normal affect, pleasant - Physical Exam Vital Signs Temp Pulse Resp BP Pulse Ox 98.3 F 90 16 101/49 L 96 08/21/18 13:41 08/21/18 15:52 08/21/18 13:41 08/21/18 13:41 08/21/18 13:41 Oxygen Flow Rate (L/min) 2 Oxygen Delivery Method Room Air Weight: 129 lb 10.109 oz Body Mass Index (BMI) 24.5 Finger Stick Blood Glucose 394 Intake and Output for Last 24 Hours 08/19/18 08/20/18 08/21/18 23:59 23:59 23:59 Intake Total 1320 / 1320 795 / 795 2224 / 2224 Output Total 100 / 100 300 / 300 Balance 1320 / 1320 695 / 695 1924 / 1924 Microbiology Past 72 Hours 08/18/18 10:15 Urine Culture - Final Urine, Clean Catch Mixed Gram Positive Organisms 08/18/18 07:50 Gram Stain - Final Sputum, Expectorated/Coughed Respiratory Culture - Final Mixed normal respiratory lisa. No Haemophilus, Streptococcus pneumoniae, beta-hemolytic Streptococcus or Staphylococcus aureus isolated. Laboratory Tests Past 24 Hrs 08/21/18 08/21/18 05:36 05:36 WBC 8.2 RBC 4.34 Hgb 12.0 Hct 38.4 MCV 88.5 MCH 27.6 MCHC 31.3 L RDW 15.6 H RDW Differential 50.6 H Plt Count 284 MPV 9.4 Immature Gran % (Auto) 0.400 Neut % (Auto) 73.3 H Lymph % (Auto) 16.5 L [place] % (Auto) 9.2 Eos % (Auto) 0.4 Baso % (Auto) 0.2 Absolute Neuts (auto) 6.0 Absolute Lymphs (auto) 1.35 Total Counted Not Reportable Sodium 134 L Potassium 3.9 Chloride 91 L Carbon Dioxide 35.0 H Anion Gap 8 BUN 22 H Creatinine 0.52 L Estim Creat Clear Calc 33.29 Est GFR (MDRD) Af Amer 144 Est GFR (MDRD) Non-Af 119 BUN/Creatinine Ratio 41.9 H Glucose 70 L Calcium 8.4 L Phosphorus 3.3 Magnesium 1.7 Total Bilirubin 0.40 AST 12 L ALT 13 Alkaline Phosphatase 79 Total Protein 6.3 L Albumin 2.8 L Globulin 3.5 Albumin/Globulin Ratio 0.8 L POC Glucose 08/21/18 08/21/18 08/21/18 16:11 11:21 06:33 POC Glucose 190 H 411 H 75 08/20/18 22:53 POC Glucose 119 H Medical Necessity - Tobacco Use Smoking Status: Never smoker Assessment/Plan All Active Problems (Last Updated 08/17/18 @ 18:07 by William Hamilton MD) Hyponatremia (Acute) Bronchitis (Acute) Impressions 1. Acute viral bronchitis secondary to RSV B 2. 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 Cortisol and TSH are within normal limits 3. Diabetes mellitus type 2-uncontrolled. Current hemoglobin A1c is 10.4. On 4 oral agents at admission. Likely will need to go on insulin or be compliant with diet. 4. Elevated right hemidiaphragm 5. Depression/anxiety 6. Atrial fibrillation 7. Hypertension 8. History of aortic valve replacement with bioprosthetic valve 9. Hyperlipidemia 10. Moderate pulmonary hypertension-pulmonary pressure is estimated at 49 on echocardiogram 11. Moderate concentric left ventricular hypertrophy with preserved ejection fraction of 65%. 12. Biatrial enlargement, left greater than right 13. Moderate mitral valve insufficiency 14. Moderately severe tricuspid insufficiency, 3+ 15. Chronic anticoagulation with apixaban 16. Chronic renal failure stage III Change the insulin protocol to med dosing Change the Fluid restrict to 1500 cc daily DC IV fluids Prednisone 20 mg p.o. daily Continue aerosols Will discuss SNF again with the patient in the a.m. [facility] to returning home since she lives by herself.
[2018-08-21] MEDS: Atorvastatin Calcium 20 MG Tablet PO (21:54)
[2018-08-21] MEDS: MELATONIN 3 MG TABLET 6 MG PO (21:54)
[2018-08-21] MEDS: levoFLOXacin 750 MG Tablet PO (21:54)
[2018-08-21 22:05] LABS: Bedside Glucose 198 mg/dL (70-110)
[2018-08-22] VITALS (10 sets, daily range): BP systolic 138–166; BP diastolic 63–85; PULSE 83–100; RESP 16–20; TEMP 36.4–36.7; O2SAT 94–97
[2018-08-22 06:11] LABS: Anion Gap 6 (5-15); BUN 18 mg/dL (7-18); BUN/Creat Ratio 43.3 RATIO (10-20); Calcium,Total 8.4 mg/dL (8.5-10.1); Chloride 95 mmol/L (98-107); Creatinine, Serum 0.42 mg/dL (0.55-1.02); EST Glomerular Filtration Rate 156 mL/min (>60); Est Glom Filt Rate - Afr Amer 188 mL/min (>60); Estimated Creatinine Clearance 33.29 ml/min; Glucose 96 mg/dL (74-106); Phosphorus 2.7 mg/dL (2.5-4.9); Potassium 4.5 mmol/L (3.5-5.1); Sodium Level 135 mmol/L (136-145)
[2018-08-22 07:01] LABS: Bedside Glucose 110 mg/dL (70-110)
[2018-08-22] MEDS: Ipratropium/Albuterol Sulfate 3 ML AMPUL.NEB INHALATION ×2 (07:38→13:11)
[2018-08-22] MEDS: Glimepiride 4 MG Tablet PO ×2 (08:45→17:07)
[2018-08-22] MEDS: Aspirin 81 MG TAB.CHEW PO (08:45)
[2018-08-22] MEDS: APIXABAN 5 MG TABLET PO (08:46)
[2018-08-22] MEDS: metFORMIN HCl 1,000 MG Tablet 1000 MG PO ×2 (08:46→17:07)
[2018-08-22] MEDS: Pioglitazone Hydrochloride 30 MG Tablet PO (08:46)
[2018-08-22] MEDS: guaiFENesin 1,200 MG Tablet 1200 MG PO (08:46)
[2018-08-22] MEDS: Iron Polysaccharide Complex 150 MG CAPSULE PO (08:46)
[2018-08-22] MEDS: LINAGLIPTIN 5 MG TABLET PO (08:46)
[2018-08-22] MEDS: Tolterodine Tartrate 4 MG CAP.SA PO (08:46)
[2018-08-22] MEDS: Lisinopril 5 MG Tablet PO (08:47)
[2018-08-22] MEDS: predniSONE 20 MG Tablet PO (08:50)
--- NOTE | 2018-08-22 10:15 | CASEMGMT ---
ROSARIO GRIFFITH Face to Face with patient for initial transition planning/care coordination assessment. RN NACHO introduced self and role at [facility]. Patient lying in bed, alert and oriented. Patient willing to participate in assessment and is able to answer all questions appropriately. Care providers, pharmacy, and demographics verified. Patient wishes to discharge home and is setup with [facility] for outpatient therapy with or daughter providing transportation. Patient has walker, shower chair, and grab bars at home. Patient states she has no further needs or concerns at this time. CM to follow for discharge planning needs that may arise. Disposition Plan: Patient to discharge home with outpatient patient therapy, family support, and follow-up plans in place. Inga CELAYA, RN, CM
--- NOTE | 2018-08-22 10:30 | CASEMGMT ---
Social Work Note SILVIO met with pt to confirm discharge plans. Pt states she would like a referral sent to [facility]. SILVIO placed a call to Rosanne at [facility] and faxed referral. SILVIO spoke with Rosanne at [facility]. Per Rosanne she is able to accept pt but is unsure what pt's co-pay will be. Rosanne states that the hospital will need to bill pt's insurance to determine if pt's deductible has been met. Rosanne states that once pt's deductible has been met, pt's secondary will cover the copay at 100% for pt at SNF. Until deductible has been met pt will have up to 20% copay. SW in to update pt of this. SW informed pt that it is unclear if she will have a copay and how much it will be. SW asked pt about completed Medicaid application. Per pt she doesn't want to complete a Medicaid application because she doesn't want her things taken away from her. SW informed pt that she would have to qualify for Medicaid and it would help to pay the copay at SNF. Pt again refuses to complete Medicaid application. Pt states that she can't afford to go to SNF and would like to go home. SW again spoke with pt. SW again reiterated to pt that this worker is unsure about what pt's copay will be. Pt asked this worker if she can leave anytime at SNF. SW informed pt that she can leave the SNF at anytime. Pt is agreeable to going to [facility] at discharge. SILVIO updated physician of this. SILVIO received a call from pt's sister Akanksha. Akanksha asked about pt going to SNF and for how long pt can go. Akanksha is listed as contact agent for pt and has called in different times for updates on pt. SILVIO informed Akanksha that pt is agreeable to go to [facility] and pt can be at SNF for as long as she wants to be. Akanksha states understanding. SILVIO spoke with Rosanne at [facility] and informed her that pt is agreeable to coming to SNF and pt should discharge today. SILVIO completed [facility]escent [facility] in [facility]. Original in pt's chart. Green sheet on pt's chart. Plan: Pt to discharge to [facility] today skilled Inga Moulton [employer], [employer]
[2018-08-22] MEDS: Insulin Lispro 100 UNIT/ML INSULN.PEN SC ×2 (11:26→16:19)
[2018-08-22 11:30] LABS: Bedside Glucose 336 mg/dL (70-110)
[2018-08-22 16:26] LABS: Bedside Glucose 399 mg/dL (70-110)
--- NOTE | 2018-08-22 17:36 | TREXTCAR_ITS ---
- Diet 08/17/18 20:52 Diet: 1800 calorie carbohydrate controlled diet....magic cup or Ensure pudding with meals Food consistency:: Regular Liquid Consistency:: Regular/Thin Diet Comments: pt is diabetic - Routine Orders/Code Status Enema Type: Fleetz Enema Frequency: Daily PRN Suppository Type: Dulcolax 10mg Suppository Frequency: Daily PRN O2 Frequency: PRN Keep PO Greater than or Equal to (%): 90 - Wound(s) Rt Lower leg Wound Type: Stasis Ulcer Rt Toe Wound Type: toenail removed right medial lower leg Wound Type: Stasis Ulcer Dressing Change: Adaptic left medial foot Wound Type: Neuropathic/Diabetic Foot Ulcer Dressing Change: Dry Sterile Dressing - Therapies Weight Bearing: Full weight bearing Physical Therapy: Eval and Treat Occupational Therapy: Eval and Treat - Problem/Diagnosis (1) Bronchitis Status: Acute Comment: Secondary to RSV B Current Visit: No (2) Hyponatremia Status: Resolved Current Visit: No (3) Anxiety and depression Status: Chronic Current Visit: No (4) Chronic ulcer of left foot with fat layer exposed Status: Chronic Current Visit: No (5) Chronic ulcer of right great toe with fat layer exposed Status: Chronic Current Visit: No (6) Hallux valgus (acquired), right foot Status: Chronic Current Visit: No (7) History of aortic valve replacement with bioprosthetic valve Status: Chronic Comment: 23 mm Saint to trifecta GT valve in June 2016 at [facility]; Current Visit: No (8) Hyperlipidemia Status: Chronic Current Visit: No (9) Non-rheumatic tricuspid valve insufficiency Status: Chronic Current Visit: No (10) Nonrheumatic mitral (valve) insufficiency Status: Chronic Current Visit: No (11) Overactive bladder Status: Chronic Current Visit: No (12) Paroxysmal atrial fibrillation Status: Chronic Current Visit: No (13) Pulmonary hypertension Status: Chronic Current Visit: No (14) Tinea unguium Status: Chronic Current Visit: No (15) Type 2 diabetes mellitus Status: Chronic Comment: Uncontrolled hemoglobin A1c on 08/18/2018 is 10.4 C urrent Visit: No (16) Ulcer of left lower extremity with fat layer exposed Status: Chronic Current Visit: No (17) Ulcer of left lower extremity with fat layer exposed Status: Chronic Current Visit: No (18) Ulcer of right lower extremity with fat layer exposed Status: Chronic Current Visit: No (19) Ulcer of right lower extremity with fat layer exposed Status: Chronic Current Visit: No (20) Venous insufficiency of both lower extremities Status: Chronic Current Visit: No (21) Venous ulcers of both lower extremities Status: Chronic Current Visit: No (22) Peripheral vascular disease Status: Suspected Current Visit: No (23) Chronic refractory osteomyelitis of right foot Status: Inactive Current Visit: No (24) Other chronic osteomyelitis, right ankle and foot Status: Inactive Current Visit: No (25) Moderate pulmonary arterial systolic hypertension Status: Chronic Current Visit: Yes (26) LVH (left ventricular hypertrophy) Status: Chronic Current Visit: Yes (27) Biatrial enlargement Status: Chronic Current Visit: Yes (28) Moderate tricuspid regurgitation Status: Chronic Comment: Moderate to severe Current Visit: Yes (29) Chronic anticoagulation Status: Acute Current Visit: Yes (30) Chronic renal failure, stage 3 (moderate) Status: Chronic Comment: Apixaban Current Visit: Yes - Allergies/Procedures Done in Hospital Allergies/Adverse Reactions: Allergies No Known Allergies Allergy (Verified 07/08/18 16:39) Procedures: None - Type of Care/Length of Stay Estimated LOS: Convalescent Care Less Than 30 days Type of Care Needed: Skilled Rehab Potential: Good Prognosis: Good - Additional Orders/Day of Discharge Additional Orders: She is on 4 different oral drugs as an OP and blood sugars are not controlled. The HGBA1C is 10.4%. I have started her on Humalog 4 units TID with meals. Need to monitor the BS AC and HS. The fasting is usually normal. Will likely need to adjust when the steroids are tapered off. H&P will serve as current which was dated: 08/17/18 Day of Discharge: 08/22/18 - Dietary and Speech Recommendations Dietitian Recommendations/Changes: Rec diet change to 1800 maddy carbohydrate- controlled, cardiac/low sodium with fluid restriction as needed. Rec liberalized fluid restriction as able. Will d/c ONS medpass and change to ensure pudding or magic cup w/ meals. - Follow Up Care Primary Care Physician: Chad Chang MD [Primary Care Provider] - Please follow up with your Primary Care Physician in: following DC from [facility]
--- NOTE | 2018-08-22 17:46 | PCM.TXEXTCAR ---
- Diet 08/17/18 20:52 Diet: Cardiac/Low Cholesterol Food consistency:: Regular Liquid Consistency:: Regular/Thin Diet Comments: pt is diabetic - Routine Orders/Code Status Enema Type: Fleetz Enema Frequency: Daily PRN Suppository Type: Dulcolax 10mg Suppository Frequency: Daily PRN O2 Frequency: PRN Keep PO Greater than or Equal to (%): 90 - Wound(s) Rt Lower leg Wound Type: Stasis Ulcer Rt Toe Wound Type: toenail removed right medial lower leg Wound Type: Stasis Ulcer Dressing Change: Adaptic left medial foot Wound Type: Neuropathic/Diabetic Foot Ulcer Dressing Change: Dry Sterile Dressing - Therapies Weight Bearing: Full weight bearing Physical Therapy: Eval and Treat Occupational Therapy: Eval and Treat - Problem/Diagnosis (1) Bronchitis Status: Acute Comment: Secondary to RSV B Current Visit: No (2) Hyponatremia Status: Resolved Current Visit: No (3) Anxiety and depression Status: Chronic Current Visit: No (4) Chronic ulcer of left foot with fat layer exposed Status: Chronic Current Visit: No (5) Chronic ulcer of right great toe with fat layer exposed Status: Chronic Current Visit: No (6) Hallux valgus (acquired), right foot Status: Chronic Current Visit: No (7) History of aortic valve replacement with bioprosthetic valve Status: Chronic Comment: 23 mm Saint to trifecta GT valve in June 2016 at [facility]; Current Visit: No (8) Hyperlipidemia Status: Chronic Current Visit: No (9) Non-rheumatic tricuspid valve insufficiency Status: Chronic Current Visit: No (10) Nonrheumatic mitral (valve) insufficiency Status: Chronic Current Visit: No (11) Overactive bladder Status: Chronic Current Visit: No (12) Paroxysmal atrial fibrillation Status: Chronic Current Visit: No (13) Pulmonary hypertension Status: Chronic Current Visit: No (14) Tinea unguium Status: Chronic Current Visit: No (15) Type 2 diabetes mellitus Status: Chronic Comment: Uncontrolled hemoglobin A1c on 08/18/2018 is 10.4 Current Visit: No (16) Ulcer of left lower extremity with fat layer exposed Status: Chronic Current Visit: No (17) Ulcer of left lower extremity with fat layer exposed Status: Chronic Current Visit: No (18) Ulcer of right lower extremity with fat layer exposed Status: Chronic Current Visit: No (19) Ulcer of right lower extremity with fat layer exposed Status: Chronic Current Visit: No (20) Venous insufficiency of both lower extremities Status: Chronic Current Visit: No (21) Venous ulcers of both lower extremities Status: Chronic Current Visit: No (22) Peripheral vascular disease Status: Suspected Current Visit: No (23) Chronic refractory osteomyelitis of right foot Status: Inactive Current Visit: No (24) Other chronic osteomyelitis, right ankle and foot Status: Inactive Current Visit: No (25) Moderate pulmonary arterial systolic hypertension Status: Chronic Current Visit: Yes (26) LVH (left ventricular hypertrophy) Status: Chronic Current Visit: Yes (27) Biatrial enlargement Status: Chronic Current Visit: Yes (28) Moderate tricuspid regurgitation Status: Chronic Comment: Moderate to severe Current Visit: Yes (29) Chronic anticoagulation Status: Acute Current Visit: Yes (30) Chronic renal failure, stage 3 (moderate) Status: Chronic Comment: Apixaban Current Visit: Yes - Allergies/Procedures Done in Hospital Allergies/Adverse Reactions: Allergies No Known Allergies Allergy (Verified 07/08/18 16:39) Procedures: None - Type of Care/Length of Stay Estimated LOS: Convalescent Care Less Than 30 days Type of Care Needed: Skilled Rehab Potential: Good Prognosis: Good - Additional Orders/Day of Discharge Additional Orders: She is on 4 different oral drugs as an OP and blood sugars are not controlled. The HGBA1C is 10.4%. I have started her on Humalog 4 units TID with meals. Need to monitor the BS AC and HS. The fasting is usually normal. Will likely need to adjust when the steroids are tapered off. H&P will serve as current which was dated: 08/17/18 Day of Discharge: 08/22/18 - Dietary and Speech Recommendations Dietitian Recommendations/Changes: Rec diet change to 1800 maddy carbohydrate-controlled, cardiac/low sodium with fluid restriction as needed. Rec liberalized fluid restriction as able. Will d/c ONS medpass and change to ensure pudding or magic cup w/ meals. - Follow Up Care Primary Care Physician: Chad Chang MD [Primary Care Provider] - Please follow up with your Primary Care Physician in: following DC from SNF
--- NOTE | 2018-08-22 17:47 | PCM.DC.SUM ---
Discharge Date and Diagnosis - Problem List Patient Problems: Active and Suspected Problems (Last Updated 08/17/18 @ 18:07 by William Hamilton MD) Chronic anticoagulation (Acute) Date of Admission: 08/17/18 Date of Discharge: 08/22/18 - Primary Discharge Diagnosis Active and Suspected Problems (Last Updated 08/17/18 @ 18:07 by William Hamilton MD) Acute viral bronchitis secondary to RSV B Hyponatremia-lab consistent with SIADH. Resolved - Secondary Discharge Diagnosis Chronic Problems (Last Updated 08/17/18 @ 18:07 by William Hamilton MD) Moderate pulmonary arterial systolic hypertension (Chronic) LVH (left ventricular hypertrophy) (Chronic) Biatrial enlargement (Chronic) Moderate tricuspid regurgitation (Chronic) Moderate to severe Chronic renal failure, stage 3 (moderate) (Chronic) Overactive bladder (Chronic) Tinea unguium (Chronic) Ulcer of right lower extremity with fat layer exposed (Chronic) Ulcer of left lower extremity with fat layer exposed (Chronic) Chronic ulcer of left foot with fat layer exposed (Chronic) Hallux valgus (acquired), right foot (Chronic) Chronic ulcer of right great toe with fat layer exposed (Chronic) Nonrheumatic mitral (valve) insufficiency (Chronic)-moderate Anxiety and depression (Chronic) Ulcer of left lower extremity with fat layer exposed (Chronic) Venous insufficiency of both lower extremities (Chronic) Ulcer of right lower extremity with fat layer exposed (Chronic) Venous ulcers of both lower extremities (Chronic) Type 2 diabetes mellitus (Chronic) Uncontrolled hemoglobin A1c on 08/18/2018 is 10.4 Paroxysmal atrial fibrillation (Chronic) History of aortic valve replacement with bioprosthetic valve (Chronic ~06/20/16) 23 mm Saint to trifecta GT valve in June 2016 at [facility]; Hyperlipidemia (Chronic) Pulmonary hypertension (Chronic) Chronic anticoagulation with apixaban Hospital Course and Treatment Imaging Results: Clinical Impression(s) from Imaging Studies Chest X-Ray 08/17/18 16:40 IMPRESSION: No acute process. Electronically Signed: Jacquelyn Campbell MD at 17:14 EST Tel , Service support , Chest X-Ray 08/18/18 05:55 IMPRESSION: Cardiomegaly status post sternotomy. Trace vascular congestion. Electronically Signed: Nell Chavez MD at 9:05 EST Tel , Service support , Chest CT 08/18/18 11:45 IMPRESSION: 1. Peribronchial thickening and basilar dominant atelectasis compatible with history provided of bronchitis/hypoventilation. No airspace consolidation or cavitating process. 2. CABG. 3. Atherosclerosis. Electronically Signed: Huang Lakhani MD at 17:45 EST , Service support , Microbiology 08/18/18 10:15 Urine, Clean Catch Urine Culture - Final Mixed Gram Positive Organisms 08/18/18 07:50 Sputum, Expectorated/Coughed Gram Stain - Final 08/18/18 07:50 Sputum, Expectorated/Coughed Respiratory Culture - Final Mixed normal respiratory lisa. No Haemophilus, Streptococcus pneumoniae, beta-hemolytic Streptococcus or Staphylococcus aureus isolated. 08/17/18 23:22 Mucosa - Nose Respiratory Panel (PCR) - Final RSV B Laboratory Results - last 24 hr 08/21/18 08/22/18 08/22/18 21:40 05:24 06:44 Sodium 135 L Potassium 4.5 Chloride 95 L Carbon Dioxide 34.0 H Anion Gap 6 BUN 18 Creatinine 0.42 L Estim Creat Clear Calc 33.29 Est GFR (MDRD) Af Amer 188 Est GFR (MDRD) Non-Af 156 BUN/Creatinine Ratio 43.3 H Glucose 96 Calcium 8.4 L Phosphorus 2.7 POC Glucose 198 H 110 08/22/18 08/22/18 11:21 16:17 Sodium Potassium Chloride Carbon Dioxide Anion Gap BUN Creatinine Estim Creat Clear Calc Est GFR (MDRD) Af Amer Est GFR (MDRD) Non-Af BUN/Creatinine Ratio Glucose Calcium Phosphorus POC Glucose 336 H 399 H Consultations 08/17/18 23:04 Consult: Onc/Wound/change booth attendant Routine Comment: Reason for Consult:: rt leg ulcer and rt great toe wound from toe nail removal Comments:: is a pt at wound clinic Operations: None Procedures: 2-D Echocardiogram Summary of Care Provided: The Patient is an 83-year-old female who lives by herself. Her past medical history is significant for nonrheumatic mitral and tricuspid valve insufficiency, hypertension, anxiety/depression, venous insufficiency of both lower extremities, venous stasis ulcerations of both lower extremities, diabetes mellitus type 2, PAF, history of aortic valve replacement with a bioprosthetic valve in June 2016, hyperlipidemia and pulmonary hypertension who presented to the emergency department at [facility] on 08/17/2018 complaining of cough and shortness of breath. Vital signs in the emergency department at presentation were temp 98.4, pulse rate 100, blood pressure 186/100, respiratory rate 20 and she was 94% saturated on room air. Significant lab included an elevated white blood cell count at 11.8 with 86% neutrophils. Sodium was low at 129 and the chloride was 90. BUN was 17 with a creatinine of 0.6 which is within her baseline. Lactic acid was 1.5. BNP was elevated at 639.8. UA had 0 WBCs. Chest x-ray showed no acute processes. She was admitted to the hospital and sputum culture, urinalysis, urine culture were ordered. She was started on IV Levaquin empirically. Aerosolized bronchodilators were initiated as well as steroids. Respiratory panel was positive for RSV B. The sputum culture had normal respiratory lisa. A urine culture had mixed gram-positive organisms. Lab was consistent with SIADH and the patient was placed on fluid restriction. She was seen by physical therapy and occupational therapy while in the hospital and additional therapy was recommended at discharge. On 08/22/2018 she was afebrile with stable vital signs. She was 96% on room air at rest with a respiratory rate of 18. Sodium was 135 and the BUN was 18 with a creatinine of 0.42. Blood sugars have not been adequately controlled in the hospital and her blood sugars are very labile. She is on 4 oral medications as an outpatient and her hemoglobin A1c is 10.4%She is very sensitive to Humalog insulin. She received 2 units of Humalog at at bedtime on 08/21/2018 when the BS was 198 and the fasting sugar on 08/22/2018 was 110. Blood sugars during the day are much higher and on the day of DC were in the 300's because her appetite and intake are improving. She will be discharged on 4 units of Humalog insulin with meals. She will continue her regular oral hypoglycemic regimen. Levaquin was discontinued. She was discharged to [facility] on 08/22/18 for further PT/strengthening prior to returning home. She will follow-up with Dr. Chad Chang in the office after discharge from [facility]. GENERAL: alert, oriented X 3, Cooperative, NAD, more energetic today ORAL: moist mucosa, no mucosal lesions NECK: No JVD, supple, trachea midline LUNGS: diminished with coarse crackles, no wheezing today, symmetric chest expansion, no conversational dyspnea, not tachypneic, no accessory muscle use HEART: RRR, Normal S1 and S2, no rub, no gallop ABDOMEN: soft, NT, ND, BS present, no guarding with palpation EXTREMITIES: No edema, no cyanosis, no calf tenderness SKIN: No rashes, no breakdown...the R great toe has a small amount of redness at the base of the nail without DC and there is a small ulceration on the distal RLE medially which appears to be healing. She also has an ulceration of the left foot. NEUROLOGIC: no focal neurologic deficits PSYCH: appropriate, normal affect, pleasant This note was generated with [employer] dictation software. It may contain incorrect words, spelling, and punctuation that were not noted in checking the note before signing. Patient Problems: Active and Suspected Problems (Last Updated 08/17/18 @ 18:07 by William Hamilton MD) Chronic anticoagulation (Acute) - Physical Exam Vital Signs Temp Pulse Resp BP Pulse Ox 98.1 F 98 18 138/68 H 96 08/22/18 14:53 08/22/18 15:47 08/22/18 14:53 08/22/18 14:53 08/22/18 14:53 Oxygen Flow Rate (L/min) 2 Oxygen Delivery Method Room Air Weight: 129 lb 10.109 oz Body Mass Index (BMI) 24.5 Finger Stick Blood Glucose 394 Intake and Output for Last 24 Hours 08/20/18 08/21/18 08/22/18 23:59 23:59 23:59 Intake Total 795 / 795 2224 / 2224 1040 / 1040 Output Total 100 / 100 300 / 300 1400 / 1400 Balance 695 / 695 1924 / 1924 -360 / -360 Microbiology Past 72 Hours 08/18/18 10:15 Urine Culture - Final Urine, Clean Catch Mixed Gram Positive Organisms 08/18/18 07:50 Gram Stain - Final Sputum, Expectorated/Coughed Respiratory Culture - Final Mixed normal respiratory lisa. No Haemophilus, Streptococcus pneumoniae, beta-hemolytic Streptococcus or Staphylococcus aureus isolated. Laboratory Tests Past 24 Hrs 08/22/18 05:24 Sodium 135 L Potassium 4.5 Chloride 95 L Carbon Dioxide 34.0 H Anion Gap 6 BUN 18 Creatinine 0.42 L Estim Creat Clear Calc 33.29 Est GFR (MDRD) Af Amer 188 Est GFR (MDRD) Non-Af 156 BUN/Creatinine Ratio 43.3 H Glucose 96 Calcium 8.4 L Phosphorus 2.7 POC Glucose 08/22/18 08/22/18 08/22/18 16:17 11:21 06:44 POC Glucose 399 H 336 H 110 08/21/18 21:40 POC Glucose 198 H Home Medications: Medications to take at Discharge metformin 1,000 mg tablet 1,000 mg PO BIDCM 0 Days 03/15/18 Apixaban [Eliquis] 5 mg PO BID 07/08/18 Atorvastatin Calcium 20 mg PO DAILY 07/08/18 Lisinopril [Zestril] 5 mg PO DAILY 07/08/18 Tolterodine Tartrate [Tolterodine Tartrate ER] 4 mg PO DAILY 07/08/18 Acetaminophen [Tylenol] 1,000 mg PO Q6H PRN PRN tablet 08/06/18 Glimepiride [Amaryl] 4 mg PO BIDCM #60 tablet 08/06/18 Iron Polysaccharide Complex [Ferrex 150] 150 mg PO DAILYCM #30 capsule 08/06/18 Linagliptin [Tradjenta] 5 mg PO DAILY #30 tablet 08/06/18 Pioglitazone [Actos] 30 mg PO DAILY@0800 #30 tablet 08/06/18 Albuterol Inhaler [Ventolin Hfa] 2 puff INHALATION 4X/DAY 08/17/18 Benzonatate [Tessalon Perle] 100 mg PO TID PRN PRN 08/17/18 Albuterol Aerosols [Ventolin Aerosols] 2.5 mg INHALATION Q4H PRN PRN vial.neb. 08/22/18 Insulin Lispro [Humalog kwikpen (BKC)] 4 unit IV TIDCM #1 insuln.pen 08/22/18 Ipratropium/Albuterol Sulfate [Duoneb] 3 ml INHALATION Q6H.RT ampul.neb 08/22/18 Prednisone 10 mg PO DAILY #10 tab 08/22/18 Following Prescrptions Were Given to Patient: Prednisone 10 mg PO DAILY #10 tab Insulin Lispro [Humalog kwikpen (BKC)] 4 unit IV TIDCM #1 insuln.pen Primary Care Physician: Chad Chang MD [Primary Care Provider] - Please follow up with your Primary Care Physician in: following DC from SNF Disposition: [facility] facility [facility] Minutes spent on discharge:: 40 Patient Condition:: Good Medical Necessity - Tobacco Use Smoking Status: Never smoker Meaningful Use Info Meaningful Use Diagnoses (Choose all that apply): None applicable Code Visit Inpatient E&M: 79486 Disch Hosp
--- NOTE | 2018-08-22 18:06 | DS.PCM_ITS ---
Discharge Date and Diagnosis - Problem List Patient Problems: Active and Suspected Problems (Last Updated 08/17/18 @ 18:07 by William Hamilton MD) Chronic anticoagulation (Acute) Date of Admission: 08/17/18 Date of Discharge: 08/22/18 - Primary Discharge Diagnosis Active and Suspected Problems (Last Updated 08/17/18 @ 18:07 by William Hamilton MD) Acute viral bronchitis secondary to RSV B Hyponatremia-lab consistent with SIADH. Resolved - Secondary Discharge Diagnosis Chronic Problems (Last Updated 08/17/18 @ 18:07 by William Hamilton MD) Moderate pulmonary arterial systolic hypertension (Chronic) LVH (left ventricular hypertrophy) (Chronic) Biatrial enlargement (Chronic) Moderate tricuspid regurgitation (Chronic) Moderate to severe Chronic renal failure, stage 3 (moderate) (Chronic) Overactive bladder (Chronic) Tinea unguium (Chronic) Ulcer of right lower extremity with fat layer exposed (Chronic) Ulcer of left lower extremity with fat layer exposed (Chronic) Chronic ulcer of left foot with fat layer exposed (Chronic) Hallux valgus (acquired), right foot (Chronic) Chronic ulcer of right great toe with fat layer exposed (Chronic) Nonrheumatic mitral (valve) insufficiency (Chronic)-moderate Anxiety and depression (Chronic) Ulcer of left lower extremity with fat layer exposed (Chronic) Venous insufficiency of both lower extremities (Chronic) Ulcer of right lower extremity with fat layer exposed (Chronic) Venous ulcers of both lower extremities (Chronic) Type 2 diabetes mellitus (Chronic) Uncontrolled hemoglobin A1c on 08/18/2018 is 10.4 Paroxysmal atrial fibrillation (Chronic) History of aortic valve replacement with bioprosthetic valve (Chronic ~06/20/16) 23 mm Saint to trifecta GT valve in June 2016 at [facility]; Hyperlipidemia (Chronic) Pulmonary hypertension (Chronic) Chronic anticoagulation with apixaban Hospital Course and Treatment Imaging Results: Clinical Impression(s) from Imaging Studies Chest X-Ray 08/17/18 16:40 IMPRESSION: No acute process. Electronically Signed: Jacquelyn Campbell MD at 17:14 EST Tel , Service support , Chest X-Ray 08/18/18 05:55 IMPRESSION: Cardiomegaly status post sternotomy. Trace vascular congestion. Electronically Signed: Nell Chavez MD at 9:05 EST Tel , Service support , Chest CT 08/18/18 11:45 IMPRESSION: 1. Peribronchial thickening and basilar dominant atelectasis compatible with history provided of bronchitis/hypoventilation. No airspace consolidation or cavitating process. 2. CABG. 3. Atherosclerosis. Electronically Signed: Huang Lakhani MD at 17:45 EST , Service support , Microbiology 08/18/18 10:15 Urine, Clean Catch Urine Culture - Final Mixed Gram Positive Organisms 08/18/18 07:50 Sputum, Expectorated/Coughed Gram Stain - Final 08/18/18 07:50 Sputum, Expectorated/Coughed Respiratory Culture - Final Mixed normal respiratory lisa. No Haemophilus, Streptococcus pneumoniae, beta-hemolytic Streptococcus or Staphylococcus aureus isolated. 08/17/18 23:22 Mucosa - Nose Respiratory Panel (PCR) - Final RSV B Laboratory Results - last 24 hr 08/21/18 08/22/18 08/22/18 21:40 05:24 06:44 Sodium 135 L Potassium 4.5 Chloride 95 L Carbon Dioxide 34.0 H Anion Gap 6 BUN 18 Creatinine 0.42 L Estim Creat Clear Calc 33.29 Est GFR (MDRD) Af Amer 188 Est GFR (MDRD) Non-Af 156 BUN/Creatinine Ratio 43.3 H Glucose 96 Calcium 8.4 L Phosphorus 2.7 POC Glucose 198 H 110 08/22/18 08/22/18 11:21 16:17 Sodium Potassium Chloride Carbon Dioxide Anion Gap BUN Creatinine Estim Creat Clear Calc Est GFR (MDRD) Af Amer Est GFR (MDRD) Non-Af BUN/Creatinine Ratio Glucose Calcium Phosphorus POC Glucose 336 H 399 H Consultations 08/17/18 23:04 Consult: Onc/Wound/health promotion manager Routine Comment: Reason for Consult:: rt leg ulcer and rt great toe wound from toe nail removal Comments:: is a pt at wound clinic Operations: None Procedures: 2-D Echocardiogram Summary of Care Provided: The Patient is an 83-year-old female who lives by herself. Her past medical history is significant for nonrheumatic mitral and tricuspid valve i nsufficiency, hypertension, anxiety/depression, venous insufficiency of both lower extremities, venous stasis ulcerations of both lower extremities, diabetes mellitus type 2, PAF, history of aortic valve replacement with a bioprosthetic valve in June 2016, hyperlipidemia and pulmonary hypertension who presented to the emergency department at [facility] on 08/17/2018 complaining of cough and shortness of breath. Vital signs in the emergency department at presentation were temp 98.4, pulse rate 100, blood pressure 186/100, respiratory rate 20 and she was 94% saturated on room air. Significant lab included an elevated white blood cell count at 11.8 with 86% neutrophils. Sodium was low at 129 and the chloride was 90. BUN was 17 with a creatinine of 0.6 which is within her baseline. Lactic acid was 1.5. BNP was elevated at 639.8. UA had 0 WBCs. Chest x-ray showed no acute processes. She was admitted to the hospital and sputum culture, urinalysis, urine culture were ordered. She was started on IV Levaquin empirically. Aerosolized bronchodilators were initiated as well as steroids. Respiratory panel was positive for RSV B. The sputum culture had normal respiratory lisa. A urine culture had mixed gram-positive organisms. Lab was consistent with SIADH and the patient was placed on fluid restriction. She was seen by physical therapy and occupational therapy while in the hospital and additional therapy was recommended at discharge. On 08/22/2018 she was afebrile with stable vital signs. She was 96% on room air at rest with a respiratory rate of 18. Sodium was 135 and the BUN was 18 with a creatinine of 0.42. Blood sugars have not been adequately controlled in the hospital and her blood sugars are very labile. She is on 4 oral medications as an outpatient and her hemoglobin A1c is 10.4%She is very sensitive to Humalog insulin. She received 2 units of Humalog at at bedtime on 08/21/2018 when the BS was 198 and the fasting sugar on 08/22/2018 was 110. Blood sugars during the day are much higher and on the day of DC were in the 300's because her appetite and intake are improving. She will be discharged on 4 units of Humalog insulin with meals. She will continue her regular oral hypoglycemic regimen. Levaquin was discontinued. She was discharged to [facility] on 08/22/18 for further PT/strengthening prior to returning home. She will follow-up with Dr. Chad Chang in the office after discharge from [facility]. GENERAL: alert, oriented X 3, Cooperative, NAD, more energetic today ORAL: moist mucosa, no mucosal lesions NECK: No JVD, supple, trachea midline LUNGS: diminished with coarse crackles, no wheezing today, symmetric chest expansion, no conversational dyspnea, not tachypneic, no accessory muscle use HEART: RRR, Normal S1 and S2, no rub, no gallop ABDOMEN: soft, NT, ND, BS present, no guarding with palpation EXTREMITIES: No edema, no cyanosis, no calf tenderness SKIN: No rashes, no breakdown...the R great toe has a small amount of redness at the base of the nail without DC and there is a small ulceration on the distal RLE medially which appears to be healing. She also has an ulceration of the left foot. NEUROLOGIC: no focal neurologic deficits PSYCH: appropriate, normal affect, pleasant This note was generated with [employer] dictation software. It may contain incorrect words, spelling, and punctuation that were not noted in checking the note before signing. Patient Problems: Active and Suspected Problems (Last Updated 08/17/18 @ 18:07 by William Hamilton MD) Chronic anticoagulation (Acute) - Physical Exam Vital Signs Temp Pulse Resp BP Pulse Ox 98.1 F 98 18 138/68 H 96 08/22/18 14:53 08/22/18 15:47 08/22/18 14:53 08/22/18 14:53 08/22/18 14:53 Oxygen Flow Rate (L/min) 2 Oxygen Delivery Method Room Air Weight: 129 lb 10.109 oz Body Mass Index (BMI) 24.5 Finger Stick Blood Glucose 394 Intake and Output for Last 24 Hours 08/20/18 08/21/18 08/22/18 23:59 23:59 23:59 Intake Total 795 / 795 2224 / 2224 1040 / 1040 Output Total 100 / 100 300 / 300 1400 / 1400 Balance 695 / 695 1924 / 1924 -360 / -360 Microbiology Past 72 Hours 08/18/18 10:15 Urine Culture - Final Urine, Clean Catch Mixed Gram Positive Organisms 08/18/18 07:50 Gram Stain - Final Sputum, Expectorated/Coughed Respiratory Culture - Final Mixed normal respiratory lisa. No Haemophilus, Streptococcus pneumoniae, beta-hemolytic Streptococcus or Staphylococcus aureus isolated. Laboratory Tests Past 24 Hrs 08/22/18 05:24 Sodium 135 L Potassium 4.5 Chloride 95 L Carbon Dioxide 34.0 H Anion Gap 6 BUN 18 Creatinine 0.42 L Estim Creat Clear Calc 33.29 Est GFR (MDRD) Af Amer 188 Est GFR (MDRD) Non-Af 156 BUN/Creatinine Ratio 43.3 H Glucose 96 Calcium 8.4 L Phosphorus 2.7 POC Glucose 08/22/18 08/22/18 08/22/18 16:17 11:21 06:44 POC Glucose 399 H 336 H 110 08/21/18 21:40 POC Glucose 198 H Home Medications: Medications to take at Discharge metformin 1,000 mg tablet 1,000 mg PO BIDCM 0 Days 03/15/18 Apixaban [Eliquis] 5 mg PO BID 07/08/18 Atorvastatin Calcium 20 mg PO DAILY 07/08/18 Lisinopril [Zestril] 5 mg PO DAILY 07/08/18 Tolterodine Tartrate [Tolterodine Tartrate ER] 4 mg PO DAILY 07/08/18 Acetaminophen [Tylenol] 1,000 mg PO Q6H PRN PRN tablet 08/06/18 Glimepiride [Amaryl] 4 mg PO BIDCM #60 tablet 08/06/18 Iron Polysaccharide Complex [Ferrex 150] 150 mg PO DAILYCM #30 capsule 08/06/18 Linagliptin [Tradjenta] 5 mg PO DAILY #30 tablet 08/06/18 Pioglitazone [Actos] 30 mg PO DAILY@0800 #30 tablet 08/06/18 Albuterol Inhaler [Ventolin Hfa] 2 puff INHALATION 4X/DAY 08/17/18 Benzonatate [Tessalon Perle] 100 mg PO TID PRN PRN 08/17/18 Albuterol Aerosols [Ventolin Aerosols] 2.5 mg INHALATION Q4H PRN PRN vial.neb. 08/22/18 Insulin Lispro [Humalog kwikpen (BKC)] 4 unit IV TIDCM #1 insuln.pen 08/22/18 Ipratropium/Albuterol Sulfate [Duoneb] 3 ml INHALATION Q6H.RT ampul.neb 08/22/18 Prednisone 10 mg PO DAILY #10 tab 08/22/18 Following Prescrptions Were Given to Patient: Prednisone 10 mg PO DAILY #10 tab Insulin Lispro [Humalog kwikpen (BKC)] 4 unit IV TIDCM #1 insuln.pen Primary Care Physician: Chad Chang MD [Primary Care Provider] - Please follow up with your Primary Care Physician in: following DC from SNF Disposition: Assisted facility - [facility] Minutes spent on discharge:: 40 Patient Condition:: Good Medical Necessity - Tobacco Use Smoking Status: Never smoker Meaningful Use Info Meaningful Use Diagnoses (Choose all that apply): None applicable Code Visit Inpatient E&M: 57148 Disch Hosp
--- NOTE | 2018-08-22 18:35 | NURSING ---
report called to [facility]. pt transported via ambulance
== END 2018-08-22 18:38 | disposition skilled nursing facility (03) | DRG 167 ==
LOC: ED 15:42 → MS3 19:27
PROVIDERS: Admitting Provider Hospitalist; Emergency Provider Emergency Medicine; Family Provider Family Medicine; PCP Family Medicine; Referring Provider Hospitalist; Visit Provider Internal Medicine
DX: J20.5 Acute bronchitis due to respiratory syncytial virus (principal); E22.2 Syndrome of inappropriate secretion of antidiuretic hormone; L97.812 Non-pressure chronic ulcer of other part of right lower leg with fat layer exposed; E78.5 Hyperlipidemia, unspecified; E11.65 Type 2 diabetes mellitus with hyperglycemia; I87.2 Venous insufficiency (chronic) (peripheral); E11.22 Type 2 diabetes mellitus with diabetic chronic kidney disease; I12.9 Hypertensive chronic kidney disease with stage 1 through stage 4 chronic kidney disease, or unspecified chronic kidney disease; N18.3 Chronic kidney disease, stage 3 (moderate); J98.6 Disorders of diaphragm; I36.1 Nonrheumatic tricuspid (valve) insufficiency; I34.0 Nonrheumatic mitral (valve) insufficiency; I27.20 Pulmonary hypertension, unspecified; N32.81 Overactive bladder; Z79.01 Long term (current) use of anticoagulants; Z95.3 Presence of xenogenic heart valve; Z79.899 Other long term (current) drug therapy; Z79.84 Long term (current) use of oral hypoglycemic drugs; E11.622 Type 2 diabetes mellitus with other skin ulcer; E11.621 Type 2 diabetes mellitus with foot ulcer; I48.2 Chronic atrial fibrillation; E11.42 Type 2 diabetes mellitus with diabetic polyneuropathy; L97.512 Non-pressure chronic ulcer of other part of right foot with fat layer exposed; L97.522 Non-pressure chronic ulcer of other part of left foot with fat layer exposed
CPT/HCPCS: 11042; 29581; 36415; 71046; 71260; 80048; 80053; 81001; 82436; 82533; 82570; 82962; 83036; 83605; 83735; 83880; 83930; 83935; 84100; 84300; 84443; 84484; 85025; 85610; 87070; 87086; 87088; 87205; 87633; 93005; 93306; 94640; 94667; 94668; 97110; 97162; 97530; 97802; 99213; 99285; J7030; Q9967; A4216; G0463; J0834

== ENCOUNTER 2018-10-02 10:14 | Outpatient (RCR) | payer MEDICARE, OTHER, SELFPAY ==
[2018-09-26 13:34] VITALS: BMI 27.0
[2018-10-02 10:42] VITALS: BP 144/85; PULSE 96; RESP 18; TEMP 36.6; BMI 27.0
--- NOTE | 2018-10-02 11:53 | HP.PCM_ITS ---
(1) Type 2 diabetes mellitus Status: Chronic Current Visit: Yes Qualifiers: Code(s): E11.9 - Type 2 diabetes mellitus without complications Comment: Uncontrolled hemoglobin A1c on 08/18/2018 is 10.4 (2) Venous insufficiency of both lower extremities Status: Chronic Current Visit: Yes Code(s): I87.2 - Venous insufficiency (chronic) (peripheral) (3) Venous ulcers of both lower extremities Status: Chronic Current Visit: No Code(s): I87.2 - Venous insufficiency (chronic) (peripheral); L97.919 - Non-pressure chronic ulcer of unspecified part of right lower leg with unspecified severity; L97.929 - Non-pressure chronic ulcer of unspecified part of left lower leg with unspecified severity History of Present Illness Chief Complaint: Bilateral lower extremity swelling. History of Wound: Ms. Jovel returns to the wound center due to concern for right lower extremity ulceration. She is well-known to the wound center comes in frequently for bilateral lower extremity venous ulcers. Since her last visit here she has been in the hospital twice and subsequently her residential for post hospital care. For her bilateral lower extremity swelling compression stockings were recommended however patient states that she since she has been home, this has been difficult for her to put on it so. she has been using Tommie wraps. She denies chills, fever or feeling of unwell. Past Medical History Past Medical History: Chronic Problems (Last Updated 08/17/18 @ 18:07 by William Hamilton MD) Moderate pulmonary arterial systolic hypertension (Chronic) LVH (left ventricular hypertrophy) (Chronic) Biatrial enlargement (Chronic) Moderate tricuspid regurgitation (Chronic) Moderate to severe Chronic renal failure, stage 3 (moderate) (Chronic) Apixaban Overactive bladder (Chronic) Tinea unguium (Chronic) Ulcer of right lower extremity with fat layer exposed (Chronic) Ulcer of left lower extremity with fat layer exposed (Chronic) Chronic ulcer of left foot with fat layer exposed (Chronic) Hallux valgus (acquired), right foot (Chronic) Chronic ulcer of right great toe with fat layer exposed (Chronic) Nonrheumatic mitral (valve) insufficiency (Chronic) Non-rheumatic tricuspid valve insufficiency (Chronic) Anxiety and depression (Chronic) Ulcer of left lower extremity with fat layer exposed (Chronic) Venous insufficiency of both lower extremities (Chronic) Ulcer of right lower extremity with fat layer exposed (Chronic) Venous ulcers of both lower extremities (Chronic) Type 2 diabetes mellitus (Chronic) Uncontrolled hemoglobin A1c on 08/18/2018 is 10.4 Paroxysmal atrial fibrillation (Chronic) History of aortic valve replacement with bioprosthetic valve (Chronic ~06/20/16) 23 mm Saint to trifecta GT valve in June 2016 at [facility]; Hyperlipidemia (Chronic) Pulmonary hypertension (Chronic) Surgical History: - - Aortic valve replacement with bioprosthetic valve. Allergies/Adverse Reactions: Allergies No Known Allergies Allergy (Verified 07/08/18 16:39) Home Medications: Ambulatory Orders Medication Instructions Recorded metformin 1,000 mg tablet 1,000 mg PO BIDCM 0 Days 03/15/18 Apixaban [Eliquis] 5 mg PO BID 07/08/18 Atorvastatin Calcium 20 mg PO DAILY 07/08/18 Lisinopril [Zestril] 5 mg PO DAILY 07/08/18 Tolterodine Tartrate [Tolterodine 4 mg PO DAILY 07/08/18 Tartrate ER] Acetaminophen [Tylenol] 1,000 mg PO Q6H PRN PRN tablet 08/06/18 Glimepiride [Amaryl] 4 mg PO BIDCM #60 tablet 08/06/18 Iron Polysaccharide Complex 150 mg PO DAILYCM #30 capsule 08/06/18 [Ferrex 150] Linagliptin [Tradjenta] 5 mg PO DAILY #30 tablet 08/06/18 Pioglitazone [Actos] 30 mg PO DAILY@0800 #30 tablet 08/06/18 Albuterol Inhaler [Ventolin Hfa] 2 puff INHALATION 4X/DAY 08/17/18 Benzonatate [Tessalon Perle] 100 mg PO TID PRN PRN 08/17/18 Albuterol Aerosols [Ventolin 2.5 mg INHALATION Q4H PRN PRN 08/22/18 Aerosols] vial.neb. Insulin Lispro [Humalog kwikpen 4 unit IV TIDCM #1 insuln.pen 08/22/18 (BK)] Ipratropium/Albuterol Sulfate 3 ml INHALATION Q6H.RT ampul.neb 08/22/18 [Duoneb] Prednisone 10 mg PO DAILY #10 tab 08/22/18 - Family History Paternal Family History: Family History (Last Reviewed 07/24/18 @ 11:42 by Robin Kimble MD) Father CAD (coronary artery disease) Mother CAD (coronary artery disease) Dementia, Heart Disease Maternal Family History: Family History (Last Reviewed 07/24/18 @ 11:42 by Robin Kimble MD) Father CAD (coronary artery disease) Mother CAD (coronary artery disease) Heart Disease Smoking Status: Never smoker Review of Systems Constitutional: Denies: Anorexia, Chills, Fever Eyes: Denies: Pain, Redness HEENT: Denies: Difficulty Swallowing Cardiovascular: Denies: Claudication, Chest Tightness Respiratory: Denies: Hemoptysis Gastrointestinal: Denies: Hematemesis, Vomiting Genitourinary: Denies: Hematuria Skin: Denies: Jaundice - Physical Exam Vital Signs Temp Pulse Resp BP 98 F 96 18 144/85 H 10/02/18 10:42 10/02/18 10:42 10/02/18 10:42 10/02/18 10:42 General: Alert, Oriented x3, Cooperative, No apparent distress HEENT: Atraumatic, Normocephalic Oral: Moist Mucosa Neck: Supple Lungs: Normal air movement Cardiovascular: Regular rate, Normal S1, Normal S2 Abdomen: Soft, Non Tender Extremities: No cyanosis, Edema Wound Measurements and Assessment WC - Nurse 1 - General Ulcer Measurement Start: 10/02/18 10:41 Freq: Status: Active Protocol: Activity Type Activity Date Activity User E-Sign Co-Sign Detail Recorded Client Recorded Date Recorded By Document 10/02/18 10:42 [facility] [id number] 10/02/18 10:53 [facility] 10/02/18 10:42 Wound Center Nurse 1 [Ulcer Assessment] 13. R GREAT TOE NAILBED -Combined with other wound No -Current Size (cm) - Length 0 -Current Size (cm) - Width 0 -Current Size (cm) - Depth 0 -Total Square Cm 0 -Date of Last Picture (Recall this 10/02/18 field) -Photo Taken Yes -Epithelialization Large 67-100% 12. L foot plantar -Combined with other wound No -Current Size (cm) - Length 0 -Current Size (cm) - Width 0 -Current Size (cm) - Depth 0 -Total Square Cm 0 -Date of Last Picture (Recall this 10/02/18 field) -Photo Taken Yes -Epithelialization Large 67-100% 11. R medial LE -Combined with other wound No -Current Size (cm) - Length 0 -Current Size (cm) - Width 0 -Current Size (cm) - Depth 0 -Total Square Cm 0 -Date of Last Picture (Recall this 10/02/18 field) -Photo Taken Yes -Epithelialization Large 67-100% [Edema Assessment] -Lower Limb Edema Present Yes -Right Calf (cm) 35.4 -Right Ankle (cm) 24.5 -Left Calf (cm) 34 -Left Ankle (cm) 25 WC - Nurse 2 - General Ulcer CM Notes Start: 10/02/18 10:41 Freq: Status: Active Protocol: Activity Type Activity Date Activity User E-Sign Co-Sign Detail Recorded Client Recorded Date Recorded By Document 10/02/18 10:59 MW [id number] 10/02/18 11:01 MW 10/02/18 10:59 Wound Center Nurse 2 [Procedure/Treatment] 13. R GREAT TOE NAILBED -Time 10:59 -Correct Patient Yes -Correct Side, Site, Position Yes -Correct Procedure Yes -Procedure Performed No -Post Debridement Size (cm) - Length 0 -Post Debridement Size (cm) - Width 0 -Post Debridement Size (cm) - Depth 0 -Total Square Cm 0 -Wound/Ulcer Outcome Healed- Epithelialized 12. L foot plantar -Time 10:59 -Correct Patient Yes -Correct Side, Site, Position Yes -Correct Procedure Yes -Procedure Performed No -Post Debridement Size (cm) - Length 0 -Post Debridement Size (cm) - Width 0 -Post Debridement Size (cm) - Depth 0 -Total Square Cm 0 -Wound/Ulcer Outcome Healed- Epithelialized 11. R medial LE -Time 11:00 -Correct Patient Yes -Correct Side, Site, Position Yes -Correct Procedure Yes -Procedure Performed No -Post Debridement Size (cm) - Length 0 -Post Debridement Size (cm) - Width 0 -Post Debridement Size (cm) - Depth 0 -Total Square Cm 0 -Wound/Ulcer Outcome Healed- Epithelialized [See Physician Procedure note for Specifics] Pain Scale: 0-10 Numeric [Pain] -Is Patient Pain Free? Yes Neurological: Cranial nerves II-XII grossly intact Psych/Mental Status: Normal Affect Debridement Note Post-Debridement Measurements/Treatment WC - Nurse 2 - General Ulcer CM Notes Start: 10/02/18 10:41 Freq: Status: Active Protocol: Activity Type Activity Date Activity User E-Sign Co-Sign Detail Recorded Client Recorded Date Recorded By Document 10/02/18 10:59 MW [id number] 10/02/18 11:01 MW 10/02/18 10:59 Wound Center Nurse 2 13. R GREAT TOE NAILBED -Time 10:59 -Correct Patient Yes -Correct Side, Site, Position Yes -Correct Procedure Yes -Procedure Performed No -Post Debridement Size (cm) - Length 0 -Post Debridement Size (cm) - Width 0 -Post Debridement Size (cm) - Depth 0 -Total Square Cm 0 -Wound/Ulcer Outcome Healed- Epithelialized 12. L foot plantar -Time 10:59 -Correct Patient Yes -Correct Side, Site, Position Yes -Correct Procedure Yes -Procedure Performed No -Post Debridement Size (cm) - Length 0 -Post Debridement Size (cm) - Width 0 -Post Debridement Size (cm) - Depth 0 -Total Square Cm 0 -Wound/Ulcer Outcome Healed- Epithelialized 11. R medial LE -Time 11:00 -Correct Patient Yes -Correct Side, Site, Position Yes -Correct Procedure Yes -Procedure Performed No -Post Debridement Size (cm) - Length 0 -Post Debridement Size (cm) - Width 0 -Post Debridement Size (cm) - Depth 0 -Total Square Cm 0 -Wound/Ulcer Outcome Healed- Epithelialized Pain Scale: 0-10 Numeric Is Patient Pain Free? Yes No debridement was completed today Assessment/Plan Active Problems (Last Updated 08/17/18 @ 18:07 by William Hamilton MD) Venous insufficiency of both lower extremities (Chronic) Type 2 diabetes mellitus (Chronic) Uncontrolled hemoglobin A1c on 08/18/2018 is 10.4 Assessment: Same as above. Plan: No debridement completed today. No ulceration noted. Her concern was a healed right lower extremity ulcer. However still has significant bilateral lower extremity swelling. She had been referred to the lymphedema clinic at her last visit she was encouraged to follow-up. Continue bilateral Tommie wraps and use compression stockings as tolerated. She was also advised to elevate lower extremities when seated and in bed. Avoid vital standing or sitting. Optimal blood sugar control was strongly advised. She was also advised to call with any questions or concerns. Discharged from the wound center. This note was generated with [employer] software. It may contain incorrect words, spelling, and punctuation that were not noted in checking the note before signing.
== END 2018-10-17 23:59 ==
LOC: WC 10:14
PROVIDERS: Family Provider Family Medicine; PCP Family Medicine; Visit Provider Internal Medicine
DX: Z09 Encounter for follow-up examination after completed treatment for conditions other than malignant neoplasm (principal); E11.51 Type 2 diabetes mellitus with diabetic peripheral angiopathy without gangrene; E11.65 Type 2 diabetes mellitus with hyperglycemia; I48.0 Paroxysmal atrial fibrillation; E78.5 Hyperlipidemia, unspecified; Z95.2 Presence of prosthetic heart valve; Z79.4 Long term (current) use of insulin; Z79.899 Other long term (current) drug therapy; Z79.52 Long term (current) use of systemic steroids
CPT/HCPCS: 99213; G0463

== ENCOUNTER → 2018-11-05 13:34 | Outpatient (CLI) | payer MEDICARE, OTHER, SELFPAY ==
[2018-11-05 13:38] LABS: Bacteria 0 SEEN /hpf (None Seen); Mucous, Urine 0 SEEN /hpf (<or=2+); Red Blood Cells-Urine 0 SEEN /hpf (0-5); White Blood Cells 0 SEEN /hpf (0-5)
[2018-11-05 15:17] LABS: Absolute Lymphocyte Count 1.27 X10^3/ul (0.83-4.51); Absolute Neutrophil Count 3.2 X10^3/uL (2.0-7.7); Basophil# 0.01 X10^3/uL; Basophil% 0.2 % (0-1); Eosinophil# 0.02 X10^3/uL; Eosinophils% 0.4 % (0-5); Hematocrit 41.2 % (37-47); Hemoglobin 13.2 g/dl (12.0-15.0); Lymphocyte # 1.27 X10^3/ul (4.0); Lymphocyte % 25.3 % (19-41); Mean Corpuscular Hgb 27.9 pg (27.0-32.0); Mean Corpuscular Volume 87.1 fL (81-99); Mean Platelet Vol. 10.5 fl (6.2-12.0); Monocyte# 0.49 X10^3/uL; Monocyte% 9.8 % (0-10); Neutrophil # 3.21 X10^3/uL (2.7-7.7); Neutrophil % 64.1 % (47-70); Platelet Count 270 K/mm3 (150-450); RBC Distribution Width CV 16.9 % (11.6-14.6); RBC Distribution Width SD 53.4 fl (35.1-43.9); Red Blood Count 4.73 M/mm3 (4.2-5.4)
[2018-11-05 15:22] LABS: Color, Urine Yellow (Yellow); Glucose, Dipstick 1000 mg/dl (Normal); Ketone-Dipstick Negative (Negative); Leukocyte Esterase-Dipstick Negative /ul (Negative); Nitrite-Dipstick Negative (Negative); Occult Blood-Urine 10 /ul (Negative); Protein-Dipstick Negative (Negative); Urine Bilirubin Dipstick Negative (Negative); Urine Clarity Clear (Clear); Urine Urobilinogen Normal (Normal)
[2018-11-05 15:33] LABS: Vitamin B12 300 pg/mL (211-911)
[2018-11-05 15:39] LABS: ALB/GLOB Ratio 1.2 RATIO (0.9-2.4); AST(SGOT) 12 U/L (15-37); Alanine Aminotransfer ALT/SGPT 20 U/L (13-56); Alkaline Phosphatase 99 U/L (45-117); Anion Gap 3 (5-15); BUN 18 mg/dL (7-18); BUN/Creat Ratio 24.4 RATIO (10-20); Calcium,Total 8.8 mg/dL (8.5-10.1); Chloride 96 mmol/L (98-107); Creatinine, Serum 0.74 mg/dL (0.55-1.02); EST Glomerular Filtration Rate 80 mL/min (>60); Est Glom Filt Rate - Afr Amer 97 mL/min (>60); Globulin 3.3 g/dL (2.2-4.2); Glucose 316 mg/dL (74-106); Potassium 4.6 mmol/L (3.5-5.1); Protein, Total 7.3 g/dL (6.4-8.2); Sodium Level 128 mmol/L (136-145); Thyroid Stim Hormone (TSH) 2.04 uIU/mL (0.358-3.74)
[2018-11-05 15:46] LABS: POSITIVE COUNT NO; POSITIVE DIFFERENTIAL NO; POSITIVE MORPHOLOGY NO
[2018-11-05 16:04] LABS: Squamous Epithelial Cells - UA 0-5 SEEN /hpf (5-10)
== END ==
PROVIDERS: Family Provider Family Medicine; PCP Family Medicine; Visit Provider Family Medicine
DX: E11.9 Type 2 diabetes mellitus without complications (principal); R60.9 Edema, unspecified; I10 Essential (primary) hypertension; N39.0 Urinary tract infection, site not specified; G62.9 Polyneuropathy, unspecified
CPT/HCPCS: 36415; 80053; 81001; 82607; 83735; 84443; 85025; 87086; 87088

== ENCOUNTER 2018-11-10 16:59 | Emergency (ER) | payer MEDICARE, OTHER, SELFPAY ==
[2018-11-10 17:00] VITALS: BP 158/88; PULSE 80; RESP 16; TEMP 36.8; O2SAT 97; BMI 25.0
[2018-11-10 17:56] VITALS: BP 178/75; PULSE 88; RESP 21; O2SAT 97
--- NOTE | 2018-11-10 18:26 | EKG12_ITS ---
Test Reason : HYPERTENSION Blood Pressure : / mmHG Vent. Rate : 083 BPM Atrial Rate : 083 BPM P-R Int : 172 ms QRS Dur : 094 ms QT Int : 390 ms P-R-T Axes : 040 042 049 degrees QTc Int : 458 ms Sinus rhythm with Premature atrial complexes Low voltage QRS (Limb Leads) Borderline ECG Confirmed by TOMEKA SHANNON, DEANN ([id number]), rubber stamp assembler [address] [place] ([id number]) on 11/13/2018 1:41:38 PM Referred By: GUY Confirmed By:DEANN ECKERT MD
--- NOTE | 2018-11-10 18:29 | ED.VISSUMM ---
- ER Visit Summary Date of Service: 11/10/18 Chief Complaint: Hypertension History of Present Illness: The patient is a 83 F who checked her blood pressure at home today noted to be 192/111. She does check her blood pressure daily. She thinks is mildly elevated yesterday but significantly worse today. She has no complaints. She does admit to some medication changes since her last admission in August, but she does not have her medication list with her and does not know what medications were changed. Physical Examination: Vital signs in triage include blood pressure 178/75, other values normal. At the time of my exam her blood pressure is 153/74. Patient sitting upright in bed no acute distress. She is alert and talkative. Heart is regular rate and rhythm. Lung sounds clear. Abdomen is soft nontender. Patient has 2-3+ lower extremity edema that is symmetric and chronic per her report. Neuro exam reveals no focal deficits. Test Results: EKG is sinus 83 with no acute ischemia. CBC and chemistry studies significant only for a sodium of 132. This is actually slightly improved when compared to her prior. Portable chest x-ray shows relatively stable appearance with no acute findings. Emergency Department Course and Treatment: Repeat blood pressure is 156/73. Patient continues to have no complaints. She will keep a journal of her blood pressure readings and follow-up with her primary care physician this week. Treatment Plan: [] Disposition: Discharge Impression: Hypertension, continue to monitor This note was generated with [employer] software. It may contain incorrect words, spelling, and punctuation that were not noted in review of the chart prior to signing ED Disposition - Plan for ED Patient: Referrals: Chad Chang MD [Primary Care Provider] -
--- NOTE | 2018-11-10 18:35 | RAD_ITS ---
STUDY: X-RAY CHEST REASON FOR EXAM: Female, 83 years old. Hypertension. TECHNIQUE: Single frontal view of the chest. COMPARISON: August 18, 2018 FINDINGS: There is stable hyperexpansion of the left lung. There is elevation of the right hemidiaphragm with right middle and lower lobe atelectasis slightly increased. There is no demonstrated pleural abnormality. There is stable cardiomegaly with sternotomy wires. Normal mediastinum and pito. Normal visualized pulmonary arteries. There is atherosclerotic calcification of the aortic arch with tortuosity. Normal visualized thoracic spine. Normal visualized ribs, clavicles, and shoulders. There is no demonstrated abnormality of the visualized soft tissue structures of the upper abdomen. RAD/Chest 1 View (Portable) IMPRESSION: Relatively stable appearance of the chest with no new or acute finding. Electronically Signed: Delbert Hernandez MD at 19:45 EDT , Service support ,
[2018-11-10 18:38] LABS: Absolute Lymphocyte Count 1.52 X10^3/ul (0.83-4.51); Absolute Neutrophil Count 3.8 X10^3/uL (2.0-7.7); Basophil# 0.01 X10^3/uL; Basophil% 0.2 % (0-1); Eosinophil# 0.03 X10^3/uL; Eosinophils% 0.5 % (0-5); Hematocrit 36.1 % (37-47); Hemoglobin 12.2 g/dl (12.0-15.0); Lymphocyte # 1.52 X10^3/ul (4.0); Lymphocyte % 25.7 % (19-41); Mean Corp Hgb Conc 33.8 g/gl (32-36); Mean Corpuscular Hgb 28.8 pg (27.0-32.0); Mean Corpuscular Volume 85.1 fL (81-99); Mean Platelet Vol. 10.3 fl (6.2-12.0); Monocyte# 0.53 X10^3/uL; Neutrophil # 3.81 X10^3/uL (2.7-7.7); Neutrophil % 64.4 % (47-70); Platelet Count 248 K/mm3 (150-450); RBC Distribution Width CV 16.7 % (11.6-14.6); RBC Distribution Width SD 52.4 fl (35.1-43.9); Red Blood Count 4.24 M/mm3 (4.2-5.4); White Blood Count 5.9 K/mm3 (4.4-11.0)
[2018-11-10 18:39] VITALS: BP 181/87; PULSE 83; RESP 24; O2SAT 97
[2018-11-10 18:40] LABS: POSITIVE COUNT NO; POSITIVE DIFFERENTIAL NO; POSITIVE MORPHOLOGY NO
[2018-11-10 18:50] LABS: Anion Gap 8 (5-15); BUN 16 mg/dL (7-18); BUN/Creat Ratio 32.3 RATIO (10-20); Calcium,Total 8.5 mg/dL (8.5-10.1); Chloride 95 mmol/L (98-107); EST Glomerular Filtration Rate 127 mL/min (>60); Est Glom Filt Rate - Afr Amer 154 mL/min (>60); Glucose 100 mg/dL (74-106); Potassium 4.2 mmol/L (3.5-5.1); Sodium Level 132 mmol/L (136-145)
--- NOTE | 2018-11-10 19:57 | ED.DEP ---
ED Disposition - Plan for ED Patient: Disposition: Home or Assisted Living Instructions: ED HTN Established Referrals: Chad Chang MD [Primary Care Provider] - 3-5 Days
[2018-11-10 20:14] VITALS: BP 156/73; PULSE 80; RESP 17; O2SAT 96
== END 2018-11-10 20:15 | disposition home or self-care (01) ==
PROVIDERS: Emergency Provider Emergency Medicine; Family Provider Family Medicine; PCP Family Medicine
DX: I10 Essential (primary) hypertension (principal); E11.9 Type 2 diabetes mellitus without complications; E78.00 Pure hypercholesterolemia, unspecified; I73.9 Peripheral vascular disease, unspecified
CPT/HCPCS: 71045; 80048; 85025; 93005; 99283

== ENCOUNTER → 2019-05-08 10:15 | Outpatient (CLI) | payer MEDICARE, OTHER, SELFPAY ==
[2019-01-16 10:57] VITALS: BMI 25.0
--- NOTE | 2019-05-08 10:25 | ART_ITS ---
Reason For Study: Circulation problems Procedure A bilateral lower extremity continuous wave Doppler with analog waveform analysis,segmental pressures,and ankle brachial indexes without exercise. Left Segmental Pressures Left brachial= 127mmHg. Left posterior tibial artery = 137mmHg. Left dorsalis pedis artery = 152mmHg. Left digit = 35 mmHg. The left dorsalis pedis waveforms are biphasic. The left posterior tibial artery waveforms are biphasic. Right Segmental Pressures Right brachial= 130mmHg. Right posterior tibial artery = 135mmHg. Right dorsalis pedis artery = 155mmHg. Right digit = 35 mmHg. The right dorsalis pedis waveforms are biphasic. The right posterior tibial artery waveforms are biphasic. Indices The right ankle brachial index by the dorsalis pedis is 1.19. The right ankle brachial index by the posterior tibial artery is 1.04. The right digital-brachial index is 0.27. The left ankle brachial index by the dorsalis pedis is 1.17. The left ankle brachial index by the posterior tibial artery is 1.04. The left digital-brachial index is 0.27. Interpretation Summary Biphasic Doppler waveforms are noted at ankle level bilaterally. Pulse-volume recording waveform amplitudes appear satisfactory at low-thigh, calf, and ankle levels bilaterally, but diminished at digital level bilaterally. Resting ankle-brachial indices are normal bilaterally. Digital-brachial indices are [id number]-xbehlpwn diminished bilaterally. Arterial flow appears normal at ankle level bilaterally. 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 Ordering Physician: Uday Costa Referring Physician: Chad Chang Performed By: Inga Raines RVT
== END ==
PROVIDERS: Family Provider Family Medicine; PCP Family Medicine; Referring Provider Family Medicine; Visit Provider Podiatrist Foot & Ankle Surgery
DX: R09.89 Other specified symptoms and signs involving the circulatory and respiratory systems (principal)
CPT/HCPCS: 93923

== ENCOUNTER → 2019-05-28 10:15 | Outpatient (CLI) | payer MEDICARE, OTHER, SELFPAY ==
[2019-01-16 10:57] VITALS: BMI 25.0
== END ==
PROVIDERS: Family Provider Family Medicine; PCP Family Medicine; Visit Provider Family Medicine
DX: N39.0 Urinary tract infection, site not specified (principal)
CPT/HCPCS: 87086; 87088; 87186

== ENCOUNTER → 2019-06-06 10:24 | Outpatient (CLI) | payer MEDICARE, OTHER, SELFPAY ==
[2019-01-16 10:57] VITALS: BMI 25.0
--- NOTE | 2019-06-06 10:38 | RAD_ITS ---
STUDY: X-RAY - BILATERAL HANDS REASON FOR EXAM: Female, 84 years old. Arthritis. TECHNIQUE - RIGHT HAND: 2 view(s) of the right hand were obtained. TECHNIQUE - LEFT HAND: 2 view(s) of the left hand were obtained. COMPARISON: Right hand radiographs 11/06 01/18 7. FINDINGS - Marked erosions and joint space loss of the 2-4 distal interphalangeal joints bilaterally, worse on the right (right hand similar to prior). Relative sparing of the PIP and MCP joints. Mild to moderate osteoarthritis of the carpus bilaterally. No acute soft tissue abnormality. No acute fracture or osseous destruction. Dense calcific atherosclerosis. RAD/Hand 2 Views IMPRESSION: Erosive osteoarthritis bilaterally, worse on the right. Electronically Signed: Suhas Ornelas, at 3:36 EDT Tel , Service support ,
== END ==
PROVIDERS: Family Provider Family Medicine; PCP Family Medicine; Referring Provider Internal Medicine Rheumatology; Visit Provider Internal Medicine Rheumatology
DX: M06.4 Inflammatory polyarthropathy (principal); M19.041 Primary osteoarthritis, right hand; M19.042 Primary osteoarthritis, left hand; K21.9 Gastro-esophageal reflux disease without esophagitis; I48.91 Unspecified atrial fibrillation; Z95.2 Presence of prosthetic heart valve; I34.0 Nonrheumatic mitral (valve) insufficiency; I07.1 Rheumatic tricuspid insufficiency
CPT/HCPCS: 73120; 73130

== ENCOUNTER → 2019-06-09 08:55 | Outpatient (CLI) | payer MEDICARE, OTHER, SELFPAY ==
[2019-01-16 10:57] VITALS: BMI 25.0
[2019-06-09 10:20] LABS: Erythrocyte Sedimentation Rate 10 mm/hr (0-30)
[2019-06-09 10:22] LABS: Absolute Lymphocyte Count 0.89 X10^3/uL (0.83-4.51); Absolute Neutrophil Count 4.2 X10^3/uL (2.0-7.7); Basophil# 0.01 X10^3/uL; Basophil% 0.2 % (0-1); Eosinophil# 0.01 X10^3/uL; Eosinophils% 0.2 % (0-5); Hematocrit 35.2 % (37-47); Hemoglobin 11.7 g/dL (12.0-15.0); Lymphocyte # 0.89 X10^3/ul (4.0); Lymphocyte % 16.1 % (19-41); Mean Corp Hgb Conc 33.2 g/dL (32-36); Mean Corpuscular Hgb 29.9 pg (27.0-32.0); Mean Platelet Vol. 10.2 fl (6.2-12.0); Monocyte# 0.41 X10^3/uL; Monocyte% 7.4 % (0-10); NRBC Flagged by Analyzer 0 % (0-5); Neutrophil # 4.19 X10^3/uL (2.7-7.7); Neutrophil % 75.6 % (47-70); Platelet Count 312 K/mm3 (150-450); RBC Distribution Width CV 13.3 % (11.6-14.6); RBC Distribution Width SD 43.7 fl (35.1-43.9); Red Blood Count 3.91 M/mm3 (4.2-5.4); White Blood Count 5.5 K/mm3 (4.4-11.0)
[2019-06-09 10:52] LABS: AST(SGOT) 16 U/L (15-37); Alanine Aminotransfer ALT/SGPT 17 U/L (13-56); Albumin, Serum 3.4 g/dL (3.2-5.0); Alkaline Phosphatase 86 U/L (45-117); Anion Gap 8 (5-15); BUN 13 mg/dL (7-18); BUN/Creat Ratio 20.1 RATIO (10-20); CRP < 2.90 mg/L (0.0-3.0); Calcium,Total 8.6 mg/dL (8.5-10.1); Chloride 89 mmol/L (98-107); Creatinine, Serum 0.65 mg/dL (0.55-1.02); EST Glomerular Filtration Rate 93 mL/min (>60); Est Glom Filt Rate - Afr Amer 113 mL/min (>60); Globulin 3.3 g/dL (2.2-4.2); Glucose 206 mg/dL (74-106); Potassium 4.5 mmol/L (3.5-5.1); Protein, Total 6.7 g/dL (6.4-8.2); Sodium Level 125 mmol/L (136-145)
[2019-06-09 11:22] LABS: Hepatitis B Surface Antibody Non-Reactive; Hepatitis B Surface Antigen Non-Reactive (Nonreactive); Hepatitis C Antibody Non-Reactive (Nonreactive)
[2019-06-10 15:04] LABS: SJOGREN'S Anti-SS-A test < 0.2 AI (0.0-0.9); SJOGREN'S Anti-SS-B test < 0.2 AI (0.0-0.9)
[2019-06-10 15:07] LABS: ANTINUCLEAR ANTIBODIES DIRECT Negative (Negative)
[2019-06-11 15:31] LABS: CCP IgG Antibodies 6 units (0-19); Hepatitis B Core AB IgM Negative (Negative)
== END ==
PROVIDERS: Family Provider Family Medicine; PCP Family Medicine; Referring Provider Internal Medicine Rheumatology; Visit Provider Internal Medicine Rheumatology
DX: M06.4 Inflammatory polyarthropathy (principal); M19.041 Primary osteoarthritis, right hand; K21.9 Gastro-esophageal reflux disease without esophagitis; I48.91 Unspecified atrial fibrillation; Z95.2 Presence of prosthetic heart valve; I34.0 Nonrheumatic mitral (valve) insufficiency; I07.1 Rheumatic tricuspid insufficiency
CPT/HCPCS: 36415; 80053; 85025; 85652; 86038; 86140; 86200; 86235; 86431; 86705; 86706; 86803; 87340

== ENCOUNTER → 2019-08-01 09:19 | Outpatient (CLI) | payer MEDICARE, OTHER, SELFPAY ==
[2019-07-03 10:49] VITALS: BMI 26.9
[2019-08-01 10:39] LABS: Absolute Lymphocyte Count 0.85 X10^3/uL (0.83-4.51); Basophil# 0.02 X10^3/uL; Basophil% 0.5 % (0-1); Eosinophil# 0.04 X10^3/uL; Eosinophils% 0.9 % (0-5); Hematocrit 37.4 % (37-47); Hemoglobin 12.1 g/dL (12.0-15.0); Lymphocyte # 0.85 X10^3/ul (4.0); Lymphocyte % 19.5 % (19-41); Mean Corp Hgb Conc 32.4 g/dL (32-36); Mean Corpuscular Hgb 29.4 pg (27.0-32.0); Monocyte# 0.38 X10^3/uL; Monocyte% 8.7 % (0-10); NRBC Flagged by Analyzer 0 % (0-5); Neutrophil # 3.04 X10^3/uL (2.7-7.7); Neutrophil % 69.7 % (47-70); Platelet Count 232 K/mm3 (150-450); RBC Distribution Width CV 16.1 % (11.6-14.6); Red Blood Count 4.11 M/mm3 (4.2-5.4); White Blood Count 4.4 K/mm3 (4.4-11.0)
[2019-08-01 11:04] LABS: ALB/GLOB Ratio 1.1 RATIO (0.9-2.4); AST(SGOT) 17 U/L (15-37); Alanine Aminotransfer ALT/SGPT 13 U/L (13-56); Albumin, Serum 3.5 g/dL (3.2-5.0); Alkaline Phosphatase 84 U/L (45-117); Anion Gap 6 (5-15); BUN 12 mg/dL (7-18); BUN/Creat Ratio 17.5 RATIO (10-20); Calcium,Total 8.5 mg/dL (8.5-10.1); Chloride 98 mmol/L (98-107); Creatinine, Serum 0.69 mg/dL (0.55-1.02); EST Glomerular Filtration Rate 87 mL/min (>60); Est Glom Filt Rate - Afr Amer 105 mL/min (>60); Globulin 3.3 g/dL (2.2-4.2); Glucose 258 mg/dL (74-106); Potassium 4.6 mmol/L (3.5-5.1); Protein, Total 6.8 g/dL (6.4-8.2); Sodium Level 129 mmol/L (136-145)
== END ==
PROVIDERS: Family Provider Family Medicine; PCP Family Medicine; Referring Provider Internal Medicine Rheumatology; Visit Provider Internal Medicine Rheumatology
DX: E11.9 Type 2 diabetes mellitus without complications (principal); I10 Essential (primary) hypertension; I27.20 Pulmonary hypertension, unspecified; I07.1 Rheumatic tricuspid insufficiency; I34.0 Nonrheumatic mitral (valve) insufficiency; I73.9 Peripheral vascular disease, unspecified; I87.2 Venous insufficiency (chronic) (peripheral); I48.91 Unspecified atrial fibrillation; K21.9 Gastro-esophageal reflux disease without esophagitis; M06.4 Inflammatory polyarthropathy; M19.041 Primary osteoarthritis, right hand; Z95.2 Presence of prosthetic heart valve
CPT/HCPCS: 36415; 80053; 85025

== ENCOUNTER → 2019-08-05 09:49 | Outpatient (CLI) | payer MEDICARE, OTHER, SELFPAY ==
[2019-07-03 10:49] VITALS: BMI 26.9
--- NOTE | 2019-08-05 09:50 | ECHOD_ITS ---
Reason For Study: VALVE REPLACEMENT EVAL Procedure This was a 2D Doppler, Color Flow transthoracic echocardiogram. The exam was of adequate technical quality. Exam performed in department. Left Ventricle Normal LV size. Severe concentric left ventricular hypertrophy. Left ventricular systolic function is normal. The estimated ejection fraction is 65 %. Post operative septal motion. Right Ventricle Normal RV size. Normal systolic function. Atria The left atrium is severely enlarged. The right atrium is mildly enlarged. No doppler evidence for ASD. Mitral Valve There is severe mitral annular calcification. Extension of the mitral annular calcification onto the mitral valve leaflets. Mild-Moderate (1-2+) mitral valve insufficiency. Tricuspid Valve Mild diffuse thickening of the tricuspid valve. Moderately severe (3+) eccentric tricuspid valve insufficiency. Right ventricular systolic pressure estimated to be 57 mmHg. Aortic Valve Stable appearing bioprosthetic aortic valve apparatus. Trivial transvalvular insufficiency of the aortic valve. Pulmonic Valve The pulmonic valve is not well visualized. Great Vessels Normal sized aortic root. Calcified aortic root. Pericardium/Pleural No pericardial effusion. MMode/2D Measurements & Calculations LVIDd: 4.4 cm IVSd: 1.8 cm LVOT diam: 2.0 cm LVIDs: 3.1 cm LVPWd: 1.6 cm LVOT area: 3.0 cm2 RVDd: 3.3 cm FS: 30.2 % Ao root diam: 3.2 cm LAV(MOD-bp): 136.8 ml LVAd ap4: 26.8 cm2 LAV(MOD-bp) Indexed: 80.9 ml/m2 EDV(MOD-sp4): 89.6 ml LAV(MOD-sp2): 135.1 ml EDV(sp4-el): 91.0 ml LAV(MOD-sp4): 115.5 ml LVAs ap4: 15.6 cm2 ESV(MOD-sp4): 35.0 ml ESV(sp4-el): 35.2 ml EF(MOD-sp4): 60.9 % EF(sp4-el): 61.4 % SV(MOD-sp4): 54.6 ml SV(sp4-el): 55.8 ml LA A4 area: 32.5 cm2 LA dimension(2D): 4.7 cm RA A4 area: 17.5 cm2 Time Measurements MV dec time: 0.23 sec Doppler Measurements & Calculations MV E max rojelio: 153.2 cm/sec Lat Peak E' Rojelio: 9.9 cm/sec Med Peak E' Rojelio: 6.8 cm/sec MV A max rojelio: 114.4 cm/sec E/E' lat: 15.5 E/E' med: 22.6 MV E/A: 1.3 Ao V2 max: 244.8 cm/sec LV V1 max: 98.8 cm/sec SV(LVOT): 67.0 ml Ao max P.0 mmHg LV V1 max P.9 mmHg Ao V2 mean: 173.8 cm/sec LV V1 mean P.0 mmHg Ao mean P.4 mmHg LV V1 mean: 66.3 cm/sec Ao V2 VTI: 52.0 cm LV V1 VTI: 22.3 cm RUBEN(I,D): 1.3 cm2 RUBEN(V,D): 1.2 cm2 PA V2 max: 103.8 cm/sec TR max rojelio: 366.1 cm/sec TR max P.8 mmHg Interpretation Summary Left ventricular systolic function is normal. The estimated ejection fraction is 65 %. Post operative septal motion. Severe concentric left ventricular hypertrophy. The left atrium is severely enlarged. The right atrium is mildly enlarged. There is severe mitral annular calcification. Extension of the mitral annular calcification onto the mitral valve leaflets. Mild-Moderate (1-2+) mitral valve insufficiency. Mild diffuse thickening of the tricuspid valve. Moderately severe (3+) eccentric tricuspid valve insufficiency. Stable appearing bioprosthetic aortic valve apparatus. Trivial transvalvular insufficiency of the aortic valve. Calcified aortic root. Right ventricular systolic pressure estimated to be 57 mmHg. Transmitral diastolic flow velocities suggest diastolic dysfunction (pseudonormal pattern). Ordering Physician: Jose Rose Referring Physician: COLLINS CABALLERO Performed By: Beatrice Quiroga RDCS
== END ==
PROVIDERS: Family Provider Family Medicine; PCP Family Medicine; Referring Provider Internal Medicine Cardiovascular Disease; Visit Provider Internal Medicine Cardiovascular Disease
DX: Z95.3 Presence of xenogenic heart valve (principal); I34.0 Nonrheumatic mitral (valve) insufficiency; I36.1 Nonrheumatic tricuspid (valve) insufficiency; I48.0 Paroxysmal atrial fibrillation; I27.20 Pulmonary hypertension, unspecified; E78.2 Mixed hyperlipidemia
CPT/HCPCS: 93306

== ENCOUNTER → 2019-09-01 10:11 | Outpatient (CLI) | payer MEDICARE, OTHER, SELFPAY ==
[2019-07-03 10:49] VITALS: BMI 26.9
[2019-09-01 13:01] LABS: Absolute Lymphocyte Count 0.98 X10^3/uL (0.83-4.51); Absolute Neutrophil Count 3.5 X10^3/uL (2.0-7.7); Basophil# 0.02 X10^3/uL; Basophil% 0.4 % (0-1); Eosinophil# 0.03 X10^3/uL; Eosinophils% 0.6 % (0-5); Hematocrit 36.3 % (37-47); Hemoglobin 11.7 g/dL (12.0-15.0); Lymphocyte # 0.98 X10^3/ul (4.0); Lymphocyte % 19.7 % (19-41); Mean Corp Hgb Conc 32.2 g/dL (32-36); Mean Corpuscular Hgb 29.7 pg (27.0-32.0); Mean Corpuscular Volume 92.1 fL (81-99); Mean Platelet Vol. 10.3 fl (6.2-12.0); Monocyte# 0.42 X10^3/uL; Monocyte% 8.4 % (0-10); NRBC Flagged by Analyzer 0 % (0-5); Neutrophil # 3.51 X10^3/uL (2.7-7.7); Neutrophil % 70.5 % (47-70); Platelet Count 266 K/mm3 (150-450); RBC Distribution Width CV 17.4 % (11.6-14.6); RBC Distribution Width SD 58.3 fl (35.1-43.9); Red Blood Count 3.94 M/mm3 (4.2-5.4)
[2019-09-01 13:25] LABS: AST(SGOT) 18 U/L (15-37); Alanine Aminotransfer ALT/SGPT 19 U/L (13-56); Albumin, Serum 3.5 g/dL (3.2-5.0); Alkaline Phosphatase 88 U/L (45-117); Anion Gap 7 (5-15); BUN 12 mg/dL (7-18); BUN/Creat Ratio 18.7 RATIO (10-20); Calcium,Total 9.1 mg/dL (8.5-10.1); Chloride 98 mmol/L (98-107); Creatinine, Serum 0.64 mg/dL (0.55-1.02); EST Glomerular Filtration Rate 94 mL/min (>60); Est Glom Filt Rate - Afr Amer 114 mL/min (>60); Globulin 3.4 g/dL (2.2-4.2); Glucose 232 mg/dL (74-106); Potassium 4.5 mmol/L (3.5-5.1); Protein, Total 6.9 g/dL (6.4-8.2); Sodium Level 130 mmol/L (136-145)
== END ==
PROVIDERS: Family Provider Family Medicine; PCP Family Medicine; Visit Provider Internal Medicine Rheumatology
DX: M05.79 Rheumatoid arthritis with rheumatoid factor of multiple sites without organ or systems involvement (principal); Z79.899 Other long term (current) drug therapy; M19.041 Primary osteoarthritis, right hand; I48.91 Unspecified atrial fibrillation; K21.9 Gastro-esophageal reflux disease without esophagitis; Z95.2 Presence of prosthetic heart valve; I34.0 Nonrheumatic mitral (valve) insufficiency; I07.1 Rheumatic tricuspid insufficiency; I27.20 Pulmonary hypertension, unspecified; E11.9 Type 2 diabetes mellitus without complications; I73.9 Peripheral vascular disease, unspecified; I87.2 Venous insufficiency (chronic) (peripheral); E78.5 Hyperlipidemia, unspecified; N32.81 Overactive bladder
CPT/HCPCS: 36415; 80053; 85025

== ENCOUNTER → 2019-10-01 09:53 | Outpatient (CLI) | payer MEDICARE, OTHER, SELFPAY ==
[2019-07-03 10:49] VITALS: BMI 26.9
--- NOTE | 2019-10-01 10:00 | ART_ITS ---
Reason For Study: PAD Procedure A bilateral lower extremity continuous wave Doppler with analog waveform analysis,segmental pressures,and ankle brachial indexes without exercise. Left Segmental Pressures Left brachial= 164mmHg. Left posterior tibial artery = 214mmHg. Left dorsalis pedis artery = >254mmHg. Left digit = 81 mmHg. The left dorsalis pedis waveforms are biphasic. The left posterior tibial artery waveforms are biphasic. Right Segmental Pressures Right brachial= 170mmHg. Right posterior tibial artery = >254mmHg. Right dorsalis pedis artery = 186mmHg. Right digit = 81 mmHg. The right dorsalis pedis waveforms are biphasic. The right posterior tibial artery waveforms are biphasic. Indices The right ankle brachial index by the dorsalis pedis is 1.09. The right ankle brachial index by the posterior tibial artery is NC. The right digital-brachial index is 0.48. The left ankle brachial index by the dorsalis pedis is NC. The left ankle brachial index by the posterior tibial artery is 1.26. The left digital-brachial index is 0.48. Interpretation Summary Biphasic Doppler waveforms are noted at ankle level bilaterally. Pulse-volume recording waveform amplitudes are diminished at ankle and digital levels bilaterally. Resting ankle-brachial indices are normal bilaterally. Digital-brachial indices are moderately diminished bilaterally. There is evidence of arterial calcification at ankle level bilaterally. Arterial flow appears normal at ankle level bilaterally. There is evidence of moderate, distal, small-vessel arterial occlusive disease at digital level bilaterally. Ordering Physician: Kevin Palumbo Referring Physician: Chad Chang Performed By: Inga Raines RVT
== END ==
PROVIDERS: PCP Family Medicine; Referring Provider Surgery; Visit Provider Surgery
DX: I73.9 Peripheral vascular disease, unspecified (principal); M79.606 Pain in leg, unspecified; E11.9 Type 2 diabetes mellitus without complications
CPT/HCPCS: 93923

== ENCOUNTER 2019-10-17 10:30 | Outpatient (RCR) | payer MEDICARE, OTHER, SELFPAY ==
[2019-07-03 10:49] VITALS: BMI 26.9
[2019-10-07 09:03] VITALS: BP 117/45; PULSE 71; RESP 16; TEMP 36.8; BMI 27.4
--- NOTE | 2019-10-07 14:42 | PCM.WC.HP ---
(1) Leg swelling Status: Chronic Current Visit: Yes Code(s): M79.89 - Other specified soft tissue disorders (2) Leg edema Status: Chronic Current Visit: Yes Code(s): R60.0 - Localized edema (3) Rheumatoid arthritis Status: Chronic Current Visit: No Code(s): M06.9 - Rheumatoid arthritis, unspecified (4) Debility Status: Chronic Current Visit: Yes Code(s): R53.81 - Other malaise (5) Overweight (BMI 25.0-29.9) Status: Chronic Current Visit: No (6) CHF (congestive heart failure) Status: Chronic Current Visit: No Code(s): I50.9 - Heart failure, unspecified (7) Hypertension Status: Chronic Current Visit: No Code(s): I10 - Essential (primary) hypertension (8) Hiatal hernia Status: Chronic Current Visit: No Code(s): K44.9 - Diaphragmatic hernia without obstruction or gangrene (9) Dependent edema Status: Chronic Current Visit: Yes Code(s): R60.9 - Edema, unspecified (10) Chronic venous insufficiency Status: Chronic Current Visit: Yes Code(s): I87.2 - Venous insufficiency (chronic) (peripheral) (11) Restless legs Status: Chronic Current Visit: No Code(s): G25.81 - Restless legs syndrome (12) Mixed hyperlipidemia Status: Chronic Current Visit: No Code(s): E78.2 - Mixed hyperlipidemia (13) LVH (left ventricular hypertrophy) Status: Chronic Current Visit: No Code(s): I51.7 - Cardiomegaly (14) Chronic anticoagulation Status: Acute Current Visit: No Code(s): 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 (15) Chronic renal failure, stage 3 (moderate) Status: Chronic Current Visit: No Code(s): N18.3 - Chronic kidney disease, stage 3 (moderate) Comment: Apixaban (16) Overactive bladder Status: Chronic Current Visit: No Code(s): N32.81 - Overactive bladder (17) Tinea unguium Status: Chronic Current Visit: No Code(s): B35.1 - Tinea unguium (18) Peripheral vascular disease Status: Suspected Current Visit: No Code(s): I73.9 - Peripheral vascular disease, unspecified (19) Nonrheumatic mitral (valve) insufficiency Status: Chronic Current Visit: No Code(s): I34.0 - Nonrheumatic mitral (valve) insufficiency (20) Non-rheumatic tricuspid valve insufficiency Status: Chronic Current Visit: No Code(s): I36.1 - Nonrheumatic tricuspid (valve) insufficiency (21) Venous insufficiency of both lower extremities Status: Chronic Current Visit: No Code(s): I87.2 - Venous insufficiency (chronic) (peripheral) (22) Type 2 diabetes mellitus Status: Chronic Current Visit: No Code(s): E11.9 - Type 2 diabetes mellitus without complications Comment: Uncontrolled hemoglobin A1c on 08/18/2018 is 10.4 (23) Paroxysmal atrial fibrillation Status: Chronic Current Visit: No Code(s): I48.0 - Paroxysmal atrial fibrillation (24) History of aortic valve replacement with bioprosthetic valve Status: Chronic Current Visit: No Code(s): Z95.4 - Presence of other heart-valve replacement Comment: 23 mm Saint to trifecta GT valve in June 2016 at [facility]; (25) Pulmonary hypertension Status: Chronic Current Visit: No Code(s): I27.2 - Other secondary pulmonary hypertension (26) Peripheral arterial disease Status: Chronic Current Visit: Yes Code(s): I73.9 - Peripheral vascular disease, unspecified (27) Charcot foot due to diabetes mellitus Status: Chronic Current Visit: Yes Code(s): E11.610 - Type 2 diabetes mellitus with diabetic neuropathic arthropathy History of Present Illness Date of Service: 10/07/19 Chief Complaint: Chronic bilateral lower extremity swelling and edema History of Wound: This is an 84-year-old female who recently presented with chronic swelling and edema in her lower extremities bilaterally. She was referred initially by her baked and graphite inspector. Patient has a Charcot foot deformity involving her left arch, for which she is under the care of a baked and graphite inspector. Surgery is contemplated for the near future. However, the swelling and edema in her lower extremities prompted her baked and graphite inspector to recommend consultation for evaluation and management. The patient is elderly and debilitated. Ambulation is limited. She walks with a cane. She is not very active, sitting for most of each day. She relates swelling in her lower extremities chronically. She indicates that her swelling has been treated with a water pill. Patient has multiple pre-existing medical problems, which are detailed below. The patient has previously been treated at our facility on multiple occasions in the past for venous ulcers of her lower extremity. It appears as though she is not compliant with the long-term recommendations related to the management of her lower extremity swelling, given that she sits for long periods each day, is not very active, and uses only Tommie wraps intermittently for compression to her lower extremities. Past Medical History Past Medical History: Chronic Problems (Last Reviewed 07/03/19 @ 10:52 by Sandy Valdez) Leg swelling (Chronic) Leg edema (Chronic) Rheumatoid arthritis (Chronic) Debility (Chronic) Overweight (BMI 25.0-29.9) (Chronic) CHF (congestive heart failure) (Chronic) Hypertension (Chronic) Hiatal hernia (Chronic) Dependent edema (Chronic) Chronic venous insufficiency (Chronic) Restless legs (Chronic) Peripheral arterial disease (Chronic) Charcot foot due to diabetes mellitus (Chronic) Mixed hyperlipidemia (Chronic) Moderate pulmonary arterial systolic hypertension (Chronic) LVH (left ventricular hypertrophy) (Chronic) Biatrial enlargement (Chronic) Chronic renal failure, stage 3 (moderate) (Chronic) Apixaban Overactive bladder (Chronic) Tinea unguium (Chronic) Ulcer of right lower extremity with fat layer exposed (Chronic) Ulcer of left lower extremity with fat layer exposed (Chronic) Chronic ulcer of left foot with fat layer exposed (Chronic) Hallux valgus (acquired), right foot (Chronic) Chronic ulcer of right great toe with fat layer exposed (Chronic) Nonrheumatic mitral (valve) insufficiency (Chronic) Non-rheumatic tricuspid valve insufficiency (Chronic) Anxiety and depression (Chronic) Ulcer of left lower extremity with fat layer exposed (Chronic) Venous insufficiency of both lower extremities (Chronic) Ulcer of right lower extremity with fat layer exposed (Chronic) Venous ulcers of both lower extremities (Chronic) Type 2 diabetes mellitus (Chronic) Uncontrolled hemoglobin A1c on 08/18/2018 is 10.4 Paroxysmal atrial fibrillation (Chronic) History of aortic valve replacement with bioprosthetic valve (Chronic ~06/20/16) 23 mm Saint to trifecta GT valve in June 2016 at [facility]; Pulmonary hypertension (Chronic) Past Medical History: Patient denies a history of myocardial infarction, cerebrovascular accident, cancer, thyroid disease, and gastroesophageal reflux disease. She has a long list of other medical problems, which include, but are not limited to, rheumatoid arthritis, congestive heart failure, hypertension, hiatal hernia, restless legs, hyperlipidemia, left ventricular hypertrophy, stage III chronic renal failure, overactive bladder, tenia unguium, mitral valve insufficiency, tricuspid valve insufficiency, chronic venous insufficiency, diabetes mellitus, atrial fibrillation, pulmonary hypertension, peripheral arterial occlusive disease, and Charcot foot deformity of the left lower extremity. Surgical History: - - Aortic valve replacement with bioprosthetic valve. Bilateral bunionectomy. Bilateral total knee replacement. The patient is a G0, P0 Ab0. Allergies/Adverse Reactions: Allergies No Known Allergies Allergy (Verified 07/03/19 10:50) Home Medications: Ambulatory Orders Medication Instructions Recorded metformin 1,000 mg tablet 1,000 mg PO BIDCM 0 Days 03/15/18 Atorvastatin Calcium 20 mg PO DAILY 07/08/18 Lisinopril [Zestril] 5 mg PO DAILY 07/08/18 Tolterodine Tartrate [Tolterodine 4 mg PO DAILY 07/08/18 Tartrate ER] Acetaminophen [Tylenol] 1,000 mg PO Q6H PRN PRN tab 08/06/18 Glimepiride [Amaryl] 4 mg PO BIDCM #60 tab 08/06/18 Iron Polysaccharide Complex 150 mg PO DAILYCM #30 cap 08/06/18 [Ferrex 150] Linagliptin [Tradjenta] 5 mg PO DAILY #30 tab 08/06/18 Pioglitazone [Actos] 30 mg PO DAILY@0800 #30 tab 08/06/18 apixaban 5 mg tablet 5 mg PO BID #180 tab 11/12/18 folic acid 1 mg tablet 2 mg PO DAILY tab 07/03/19 methotrexate sodium 2.5 mg tablet 10 mg PO QWEEK tab 07/03/19 - Family History Paternal Family History: Family History (Last Reviewed 07/03/19 @ 10:52 by Sandy Valdez) Father CAD (coronary artery disease) Mother CAD (coronary artery disease) Dementia, Heart Disease Maternal Family History: Family History (Last Reviewed 07/03/19 @ 10:52 by Sandy Valdez) Father CAD (coronary artery disease) Mother CAD (coronary artery disease) Heart Disease Social History: Patient is a . 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 Lives: Alone Smoking Status: Never smoker Tobacco Use: Non-smoker Alcohol: None Drugs: None Review of Systems Constitutional: Denies: Chills, Fever, Weight Change Eyes: Denies: Pain, Vision Change HEENT: Denies: Difficulty Hearing, Difficulty Swallowing, Sinus Congestion Cardiovascular: Denies: Chest Pain, Palpitations Respiratory: Denies: Cough, Shortness of Breath Gastrointestinal: Denies: Diarrhea, Nausea, Vomiting Genitourinary: Denies: Dysuria, Hematuria Endocrine: Denies: Heat/ Cold Intolerance, Polydipsia, Polyuria Hematologic/ Lymphatic: Denies: Easy Bruising, Easy Bleeding - Physical Exam Vital Signs Temp Pulse Resp BP 98.2 F 71 16 117/45 L 10/07/19 09:03 10/07/19 09:03 10/07/19 09:03 10/07/19 09:03 General: Alert, Oriented x3, Cooperative, No apparent distress, Well developed, Well nourished HEENT: Atraumatic, PERRLA, EOMI, Normocephalic Oral: Moist Mucosa Neck: Supple, No JVD, Negative Carotid Bruits, Negative Hepatojugular Reflux, No Nodes, No Nuchal Rigidity, Trachea Midline Lungs: Clear to auscultation, Normal air movement, No rhonchi, No wheeze, No rales Cardiovascular: Regular rate, Normal S1, Normal S2, No murmurs Abdomen: Soft, Non Tender, Non-Distended Extremities: No clubbing, No cyanosis, No Calf Tenderness, - - Bilateral lower extremity swelling and edema are noted. Arthritic changes are noted in the patient's fingers bilaterally. A Charcot foot deformity is noted involving the left foot. There are no open wounds or ulcerations. Wound Measurements and Assessment WC - Nurse 1 - General Ulcer Measurement Start: 10/07/19 09:01 Freq: Status: Active Protocol: Activity Type Activity Date Activity User E-Sign Co-Sign Detail Recorded Client Recorded Date Recorded By Document 10/07/19 09:03 [id number] 10/07/19 09:13 DL 10/07/19 09:03 Wound Center Nurse 1 [Edema Assessment] -Lower Limb Edema Present Yes -Right Calf (cm) 41.8 -Right Ankle (cm) 22.5 -Left Calf (cm) 36.4 -Left Ankle (cm) 22.5 Neurological: Cranial nerves II-XII grossly intact, Neuro grossly intact Psych/Mental Status: Normal Affect, Appropriate, Alert and oriented to time, place, person, mood and affect Debridement Note No debridement was completed today - There are no open wounds or ulcerations. Assessment/Plan Active Problems (Last Reviewed 07/03/19 @ 10:52 by Sandy Valdez) Leg swelling (Chronic) Leg edema (Chronic) Debility (Chronic) Dependent edema (Chronic) Chronic venous insufficiency (Chronic) Peripheral arterial disease (Chronic) Charcot foot due to diabetes mellitus (Chronic) Assessment: This is an 84 year-old female with a long list of pre-existing medical problems. She presents with swelling and edema in her lower extremities, which has been chronic in nature. She has a history of ulcerations in the past, thought to be a venous origin. The patient is relatively inactive and immobile. She sits for long periods each day. It appears as though the swelling and edema in the patient's lower extremities is related to lifestyle habits. Pre-existing venous disease also appears to be a contributing factor. Plan: We are to implement conservative treatment measures relative to the patient's lower extremity swelling and edema. She has been counseled as to the appropriate measures to be implemented. Leg elevation is to be implemented, even during daytime hours. The patient currently sleeps on a flat mattress at night. This is to be continued. She has been encouraged to elevate her lower extremities to heart level, or higher, even during daytime hours. Prolonged idle sitting has been discouraged. Activity has been encouraged, though the patient's debility will likely prevent significant enhancement of her activity level. A noninvasive lower extremity arterial study has been performed, revealing relatively normal arterial flow at ankle level bilaterally. Moderate, distal, small vessel arterial occlusive disease is noted at digital level bilaterally. We are to implement compression to the lower extremities by means of a 3M 2 layer compression wrap, which will be changed twice weekly. Patient is to return twice weekly for a change of her compression wraps. Reevaluation will be planned for 1 week. We are to defer issues related to her left Charcot foot deformity to her baked and graphite inspector, who is currently engaged in the patient's care. Influenza vaccine was not administered today. The patient is not a smoker. The patient is 5 feet 3 inches tall. She weighs 156 pounds. Her BMI is 27.6, which places the patient in an overweight category. Weight optimization has been recommended, in collaboration with the patient's primary care physician has been advised. This note was generated with [employer] dictation software. It may contain incorrect words, spelling, and punctuation that were not noted in checking the note before signing.
[2019-10-10 09:11] VITALS: BP 157/65; PULSE 82; RESP 16; TEMP 36.6; BMI 27.4
[2019-10-14 10:15] VITALS: BP 160/64; PULSE 72; RESP 16; TEMP 36.4; BMI 27.4
--- NOTE | 2019-10-14 11:07 | HP.PCM_ITS ---
(1) Leg swelling Status: Chronic Current Visit: Yes Code(s): M79.89 - Other specified soft tissue disorders (2) Leg edema Status: Chronic Current Visit: Yes Code(s): R60.0 - Localized edema (3) Rheumatoid arthritis Status: Chronic Current Visit: No Code(s): M06.9 - Rheumatoid arthritis, unspecified (4) Debility Status: Chronic Current Visit: Yes Code(s): R53.81 - Other malaise (5) Overweight (BMI 25.0-29.9) Status: Chronic Current Visit: No (6) CHF (congestive heart failure) Status: Chronic Current Visit: No Code(s): I50.9 - Heart failure, unspecified (7) Hypertension Status: Chronic Current Visit: No Code(s): I10 - Essential (primary) hypertension (8) Hiatal hernia Status: Chronic Current Visit: No Code(s): K44.9 - Diaphragmatic hernia without obstruction or gangrene (9) Dependent edema Status: Chronic Current Visit: Yes Code(s): R60.9 - Edema, unspecified (10) Chronic venous insufficiency Status: Chronic Current Visit: Yes Code(s): I87.2 - Venous insufficiency (chronic) (peripheral) (11) Restless legs Status: Chronic Current Visit: No Code(s): G25.81 - Restless legs syndrome (12) Mixed hyperlipidemia Status: Chronic Current Visit: No Code(s): E78.2 - Mixed hyperlipidemia (13) LVH (left ventricular hypertrophy) Status: Chronic Current Visit: No Code(s): I51.7 - Cardiomegaly (14) Chronic anticoagulation Status: Acute Current Visit: No Code(s): 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 (15) Chronic renal failure, stage 3 (moderate) Status: Chronic Current Visit: No Code(s): N18.3 - Chronic kidney disease, stage 3 (moderate) Comment: Apixaban (16) Overactive bladder Status: Chronic Current Visit: No Code(s): N32.81 - Overactive bladder (17) Tinea unguium Status: Chronic Current Visit: No Code(s): B35.1 - Tinea unguium (18) Peripheral vascular disease Status: Suspected Current Visit: No Code(s): I73.9 - Peripheral vascular di sease, unspecified (19) Nonrheumatic mitral (valve) insufficiency Status: Chronic Current Visit: No Code(s): I34.0 - Nonrheumatic mitral (valve) insufficiency (20) Non-rheumatic tricuspid valve insufficiency Status: Chronic Current Visit: No Code(s): I36.1 - Nonrheumatic tricuspid (valve) insufficiency (21) Venous insufficiency of both lower extremities Status: Chronic Current Visit: No Code(s): I87.2 - Venous insufficiency (chronic) (peripheral) (22) Type 2 diabetes mellitus Status: Chronic Current Visit: No Code(s): E11.9 - Type 2 diabetes mellitus without complications Comment: Uncontrolled hemoglobin A1c on 08/18/2018 is 10.4 (23) Paroxysmal atrial fibrillation Status: Chronic Current Visit: No Code(s): I48.0 - Paroxysmal atrial fibrillation (24) History of aortic valve replacement with bioprosthetic valve Status: Chronic Current Visit: No Code(s): Z95.4 - Presence of other heart- valve replacement Comment: 23 mm Saint to trifecta GT valve in June 2016 at [facility]; (25) Pulmonary hypertension Status: Chronic Current Visit: No Code(s): I27.2 - Other secondary pulmonary hypertension (26) Peripheral arterial disease Status: Chronic Current Visit: Yes Code(s): I73.9 - Peripheral vascular disease, unspecified (27) Charcot foot due to diabetes mellitus Status: Chronic Current Visit: Yes Code(s): E11.610 - Type 2 diabetes mellitus with diabetic neuropathic arthropathy History of Present Illness Date of Service: 10/14/19 Chief Complaint: Chronic bilateral lower extremity swelling and edema History of Wound: This is an 84-year-old female who recently [facility] with [facility] swelling and edema in her lower extremities bilaterally. She was referred initially by her rafter cutting machine operator. The patient has a Charcot foot deformity involving her left arch, for which she is under the care of a rafter cutting machine operator. Surgery is contemplated for the near future. However, the swelling and edema in her lower extremities prompted her rafter cutting machine operator to recommend consultation for evaluation and management. The patient is elderly and debilitated. Ambulation is limited. She walks with a cane. She is not very active, sitting for most of each day. She relates swelling in her lower extremities chronically. She indicates that her swelling has been treated with a water pill. Patient has multiple pre- existing medical problems, which are detailed below. The patient has previously been treated at our facility on multiple occasions in the past for venous ulcers of her lower extremity. It appears as though she is not compliant with the long-term recommendations related to the management of her lower extremity swelling, given that she sits for long periods each day, is not very active, and uses only Tommie wraps intermittently for compression to her lower extremities. Past Medical History Past Medical History: Chronic Problems (Last Reviewed 07/03/19 @ 10:52 by Sandy Valdez) Leg swelling (Chronic) Leg edema (Chronic) Rheumatoid arthritis (Chronic) Debility (Chronic) Overweight (BMI 25.0-29.9) (Chronic) CHF (congestive heart failure) (Chronic) Hypertension (Chronic) Hiatal hernia (Chronic) Dependent edema (Chronic) Chronic venous insufficiency (Chronic) Restless legs (Chronic) Peripheral arterial disease (Chronic) Charcot foot due to diabetes mellitus (Chronic) Mixed hyperlipidemia (Chronic) Moderate pulmonary arterial systolic hypertension (Chronic) LVH (left ventricular hypertrophy) (Chronic) Biatrial enlargement (Chronic) Chronic renal failure, stage 3 (moderate) (Chronic) Apixaban Overactive bladder (Chronic) Tinea unguium (Chronic) Ulcer of right lower extremity with fat layer exposed (Chronic) Ulcer of left lower extremity with fat layer exposed (Chronic) Chronic ulcer of left foot with fat layer exposed (Chronic) Hallux valgus (acquired), right foot (Chronic) Chronic ulcer of right great toe with fat layer exposed (Chronic) Nonrheumatic mitral (valve) insufficiency (Chronic) Non-rheumatic tricuspid valve insufficiency (Chronic) Anxiety and depression (Chronic) Ulcer of left lower extremity with fat layer exposed (Chronic) Venous insufficiency of both lower extremities (Chronic) Ulcer of right lower extremity with fat layer exposed (Chronic) Venous ulcers of both lower extremities (Chronic) Type 2 diabetes mellitus (Chronic) Uncontrolled hemoglobin A1c on 08/18/2018 is 10.4 Paroxysmal atrial fibrillation (Chronic) History of aortic valve replacement with bioprosthetic valve (Chronic ~06/20/16) 23 mm Saint to trifecta GT valve in June 2016 at [facility]; Pulmonary hypertension (Chronic) Surgical History: - - Aortic valve replacement with bioprosthetic valve. Bilateral bunionectomy. Bilateral total knee replacement. The patient is a G0, P0 Ab0. Allergies/Adverse Reactions: Allergies No Known Allergies Allergy (Verified 07/03/19 10:50) Home Medications: Ambulatory Orders Medication Instructions Recorded metformin 1,000 mg tablet 1,000 mg PO BIDCM 0 Days 03/15/18 Atorvastatin Calcium 20 mg PO DAILY 07/08/18 Lisinopril [Zestril] 5 mg PO DAILY 07/08/18 Tolterodine Tartrate [Tolterodine 4 mg PO DAILY 07/08/18 Tartrate ER] Acetaminophen [Tylenol] 1,000 mg PO Q6H PRN PRN tab 08/06/18 Glimepiride [Amaryl] 4 mg PO BIDCM #60 tab 08/06/18 Iron Polysaccharide Complex 150 mg PO DAILYCM #30 cap 08/06/18 [Ferrex 150] Linagliptin [Tradjenta] 5 mg PO DAILY #30 tab 08/06/18 Pioglitazone [Actos] 30 mg PO DAILY@0800 #30 tab 08/06/18 apixaban 5 mg tablet 5 mg PO BID #180 tab 11/12/18 folic acid 1 mg tablet 2 mg PO DAILY tab 07/03/19 methotrexate sodium 2.5 mg tablet 10 mg PO QWEEK tab 07/03/19 - Family History Paternal Family History: Family History (Last Reviewed 07/03/19 @ 10:52 by Sandy Valdez) Father CAD (coronary artery disease) Mother CAD (coronary artery disease) Dementia, Heart Disease Maternal Family History: Family History (Last Reviewed 07/03/19 @ 10:52 by Sandy Valdez) Father CAD (coronary artery disease) Mother CAD (coronary artery disease) Heart Disease Lives: Alone Smoking Status: Never smoker Tobacco Use: Non-smoker Alcohol: None Drugs: None Review of Systems Constitutional: Denies: Chills, Fever, Weight Change Eyes: Denies: Pain, Vision Change HEENT: Denies: Difficulty Hearing, Difficulty Swallowing, Sinus Congestion Cardiovascular: Denies: Chest Pain, Palpitations Respiratory: Denies: Cough, Shortness of Breath Gastrointestinal: Denies: Diarrhea, Nausea, Vomiting Genitourinary: Denies: Dysuria, Hematuria Endocrine: Denies: Heat/ Cold Intolerance, Polydipsia, Polyuria Hematologic/ Lymphatic: Denies: Easy Bruising, Easy Bleeding - Physical Exam Vital Signs Temp Pulse Resp BP 97.6 F L 72 16 160/64 H 10/14/19 10:15 10/14/19 10:15 10/14/19 10:15 10/14/19 10:15 General: Alert, Oriented x3, Cooperative, No apparent distress, Well developed, Well nourished HEENT: Atraumatic, PERRLA, EOMI, Normocephalic Oral: Moist Mucosa Neck: No JVD Lungs: Normal air movement Abdomen: Non-Distended Extremities: No clubbing, No cyanosis, No Calf Tenderness, - - The swelling and edema in the patient's lower extremities appears to be significantly improved. At this juncture, it is only minimal. There are no open wounds or ulcerations. However, ecchymosis is noted on the plantar and dorsal surface of the left foot, the result of a recent fall approximately 1 week ago. Scattered varicosities are noted in the lower extremities bilaterally. Wound Measurements and Assessment WC - Nurse 1 - General Ulcer Measurement Start: 10/07/19 09:01 Freq: Status: Active Protocol: Activity Type Activity Date Activity User E-Sign Co-Sign Detail Recorded Client Recorded Date Recorded By Document 10/14/19 10:15 [facility] [id number] 10/14/19 10:22 [facility] 10/14/19 10:15 [facility] Nurse 1 [Edema Assessment] -Lower Limb Edema Present Yes -Right Calf (cm) 33 -Right Ankle (cm) 20.6 -Left Calf (cm) 31.5 -Left Ankle (cm) 22 Neurological: Cranial nerves II-XII grossly intact, Neuro grossly intact Psych/Mental Status: Normal Affect, Appropriate, Alert and oriented to time, markie ce, person, mood and affect Debridement Note No debridement was completed today - There are no open wounds or ulcerations. Assessment/Plan Active Problems (Last Reviewed 07/03/19 @ 10:52 by Sandy Valdez) Leg swelling (Chronic) Leg edema (Chronic) Debility (Chronic) Dependent edema (Chronic) Chronic venous insufficiency (Chronic) Peripheral arterial disease (Chronic) Charcot foot due to diabetes mellitus (Chronic) Assessment: This is an 84 year-old female with a long list of pre-existing medical problems. She presents with swelling and edema in her lower extremities, which has been chronic in nature. She has a history of ulcerations in the past, thought to be a venous origin. The patient is relatively inactive and immobile. She sits for long periods each day. It appears as though the swelling and edema in the patient's lower extremities is related to lifestyle habits. Pre-existing venous disease also appears to be a contributing factor. Plan: We are to continue conservative treatment measures relative to the patient's lower extremity swelling and edema. She has been counseled as to the appropriate measures to be implemented. Leg elevation is to be implemented, even during daytime hours. The patient currently sleeps on a flat mattress at night. This is to be continued. She has been encouraged to elevate her lower extremities to heart level, or higher, even during daytime hours. Prolonged idle sitting has been discouraged. Activity has been encouraged, though the patient's debility will likely prevent significant enhancement of her activity level. A noninvasive lower extremity arterial study has been performed, revealing relatively normal arterial flow at ankle level bilaterally. Moderate, distal, small vessel arterial occlusive disease is noted at digital level bilaterally. We are to continue compression to the lower extremities by means of a 3M 2 layer compression wrap, which will be changed twice weekly. However, the patient has been provided a prescription for graduated compression stockings of 10 to 15 mmHg compression. We are to assist the patient in obtaining these compression stockings. If the patient is able to don the stockings, we may consider a second pair to enhance the level of compression. Patient is to r eturn twice weekly for a change of her compression wraps until which time she has obtained her graduated compression stockings. Reevaluation will be planned for 1 week. We are to defer issues related to her left Charcot foot deformity to her rafter cutting machine operator, who is currently engaged in the patient's care. As result of the patient's recent fall, and the presence of ecchymoses on the left foot, we are to arrange for the patient to undergo an x-ray of the left foot to assure that no acute fractures are present. Influenza vaccine was not administered today. The patient is not a smoker. The patient is 5 feet 3 inches tall. She weighs 156 pounds. Her BMI is 27.6, which places the patient in an overweight category. Weight optimization has been recommended, in collaboration with the patient's primary care physician has been advised. This note was generated with [employer] software. It may contain incorrect words, spelling, and punctuation that were not noted in checking the note before signing.
--- NOTE | 2019-10-14 12:05 | RAD_ITS ---
STUDY: X-RAY - LEFT FOOT CLINICAL: Female, 84 years old. Fall last week. Foot and toe pain. TECHNIQUE: 3 view(s) of the foot. COMPARISON: None. FINDINGS: Moderate generalized osteopenia. Calcaneal spurs. Pes planus deformity. Normal metatarsi. Moderate arthrosis of the MTP joints. Irregularity of the base of the proximal phalanx fifth digit may represent displaced fracture. Diffuse soft tissue swelling with vascular calcification. RAD/Foot min 3 Views IMPRESSION: Osteopenia with osteoarthritic changes. Probable nondisplaced fracture of the base of the proximal phalanx of the fifth digit. Electronically Signed: Delbert Hernandez MD at 13:04 EST , Service support ,
--- NOTE | 2019-10-16 13:56 | WC ---
Per Dr Palumbo, the patients xray showed a possible break or fracture of the left foot and the patient is to follow up with [facility] and make an appointment dia. The patient was informed and said she would call today to make the appointment.
[2019-10-17 10:42] VITALS: BP 123/66; PULSE 64; RESP 16; TEMP 36.1; BMI 27.4
--- NOTE | 2019-10-17 10:44 | WC ---
RB REMOVED AND APPLIED NEW 3M TO RLE. LLE 3M LEFT INTACT PER CM INSTRUCTION. PT HAS ORTHO APPT TODAY FOR LT FOOT/LE. PT WITHOUT S/SX PAIN OR DISCOMFORT.
== END 2019-10-18 23:59 ==
LOC: WC 10:30
PROVIDERS: PCP Family Medicine; Referring Provider Surgery; Visit Provider Surgery
DX: I87.2 Venous insufficiency (chronic) (peripheral) (principal); E78.2 Mixed hyperlipidemia; G25.81 Restless legs syndrome; I50.9 Heart failure, unspecified; I13.0 Hypertensive heart and chronic kidney disease with heart failure and stage 1 through stage 4 chronic kidney disease, or unspecified chronic kidney disease; K44.9 Diaphragmatic hernia without obstruction or gangrene; R60.0 Localized edema; M06.9 Rheumatoid arthritis, unspecified; M79.89 Other specified soft tissue disorders; N32.81 Overactive bladder; B35.1 Tinea unguium; I27.20 Pulmonary hypertension, unspecified; I48.0 Paroxysmal atrial fibrillation; N18.3 Chronic kidney disease, stage 3 (moderate); E11.51 Type 2 diabetes mellitus with diabetic peripheral angiopathy without gangrene; E11.22 Type 2 diabetes mellitus with diabetic chronic kidney disease; E11.610 Type 2 diabetes mellitus with diabetic neuropathic arthropathy; Z79.01 Long term (current) use of anticoagulants; Z95.3 Presence of xenogenic heart valve; Z79.899 Other long term (current) drug therapy; Z79.84 Long term (current) use of oral hypoglycemic drugs
CPT/HCPCS: 29580; 29581; 73630; 99212; 99213; G0463

== ENCOUNTER 2019-10-28 09:00 | Outpatient (RCR) | payer MEDICARE, OTHER, SELFPAY ==
[2019-10-19 01:08] VITALS: BP 123/66; PULSE 64; RESP 16; TEMP 36.1
[2019-10-21 10:26] VITALS: BP 138/47; PULSE 78; RESP 20; TEMP 36.4; BMI 27.4
--- NOTE | 2019-10-21 11:28 | HP.PCM_ITS ---
(1) Leg swelling Status: Chronic Current Visit: Yes Code(s): M79.89 - Other specified soft tissue disorders (2) Leg edema Status: Chronic Current Visit: Yes Code(s): R60.0 - Localized edema (3) Rheumatoid arthritis Status: Chronic Current Visit: No Code(s): M06.9 - Rheumatoid arthritis, unspecified (4) Debility Status: Chronic Current Visit: Yes Code(s): R53.81 - Other malaise (5) Overweight (BMI 25.0-29.9) Status: Chronic Current Visit: Yes (6) CHF (congestive heart failure) Status: Chronic Current Visit: No Code(s): I50.9 - Heart failure, unspecified (7) Hypertension Status: Chronic Current Visit: No Code(s): I10 - Essential (primary) hypertension (8) Hiatal hernia Status: Chronic Current Visit: No Code(s): K44.9 - Diaphragmatic hernia without obstruction or gangrene (9) Dependent edema Status: Chronic Current Visit: Yes Code(s): R60.9 - Edema, unspecified (10) Chronic venous insufficiency Status: Chronic Current Visit: Yes Code(s): I87.2 - Venous insufficiency (chronic) (peripheral) (11) Restless legs Status: Chronic Current Visit: Yes Code(s): G25.81 - Restless legs syndrome (12) Peripheral arterial disease Status: Chronic Current Visit: Yes Code(s): I73.9 - Peripheral vascular disease, unspecified (13) Charcot foot due to diabetes mellitus Status: Chronic Current Visit: Yes Code(s): E11.610 - Type 2 diabetes mellitus with diabetic neuropathic arthropathy (14) Mixed hyperlipidemia Status: Chronic Current Visit: No Code(s): E78.2 - Mixed hyperlipidemia (15) Moderate pulmonary arterial systolic hypertension Status: Chronic Current Visit: No Code(s): I27.21 - Secondary pulmonary arterial hypertension (16) LVH (left ventricular hypertrophy) Status: Chronic Current Visit: No Code(s): I51.7 - Cardiomegaly (17) Biatrial enlargement Status: Chronic Current Visit: No Code(s): I51.7 - Cardiomegaly (18) Chronic anticoagulation Status: Chronic Current Visit: No Code(s): 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 (19) Chronic renal failure, stage 3 (moderate) Status: Chronic Current Visit: No Code(s): N18.3 - Chronic kidney disease, stage 3 (moderate) Comment: Apixaban (20) Bronchitis Status: Acute Current Visit: No Code(s): J40 - Bronchitis, not specified as acute or chronic Comment: Secondary to RSV B (21) Overactive bladder Status: Chronic Current Visit: No Code(s): N32.81 - Overactive bladder (22) Tinea unguium Status: Chronic Current Visit: No Code(s): B35.1 - Tinea unguium (23) Ulcer of right lower extremity with fat layer exposed Status: Resolved Current Visit: No Code(s): L97.912 - Non-pressure chronic u lcer of unspecified part of right lower leg with fat layer exposed (24) Ulcer of left lower extremity with fat layer exposed Status: Resolved Current Visit: No Code(s): L97.922 - Non-pressure chronic ulcer of unspecified part of left lower leg with fat layer exposed (25) Chronic ulcer of left foot with fat layer exposed Status: Resolved Current Visit: No Code(s): L97.522 - Non-pressure chronic ulcer of other part of left foot with fat layer exposed (26) Hallux valgus (acquired), right foot Status: Chronic Current Visit: No Code(s): M20.11 - Hallux valgus (acquired), right foot (27) Peripheral vascular disease Status: Suspected Current Visit: Yes Code(s): I73.9 - Peripheral vascular disease, unspecified (28) Other chronic osteomyelitis, right ankle and foot Status: Inactive Current Visit: No Code(s): M86.671 - Other chronic osteomyelitis, right ankle and foot (29) Chronic refractory osteomyelitis of right foot Status: Inactive Current Visit: No Code(s): M86.671 - Other chronic osteomyelitis, right ankle and foot (30) Chronic ulcer of right great toe with fat layer exposed Status: Resolved Current Visit: No Code(s): L97.512 - Non-pressure chronic ulcer of other part of right foot with fat layer exposed (31) Nonrheumatic mitral (valve) insufficiency Status: Chronic Current Visit: No Code(s): I34.0 - Nonrheumatic mitral (valve) insufficiency (32) Non-rheumatic tricuspid valve insufficiency Status: Chronic Current Visit: No Code(s): I36.1 - Nonrheumatic tricuspid (valve) insufficiency (33) Anxiety and depression Status: Chronic Current Visit: No Code(s): F41.8 - Other specified anxiety disorders (34) Ulcer of left lower extremity with fat layer exposed Status: Resolved Current Visit: No Code(s): L97.922 - Non-pressure chronic ulcer of unspecified part of left lower leg with fat layer exposed (35) Venous insufficiency of both lower extremities Status: Chronic Current Visit: Yes Code(s): I87.2 - Venous insufficiency (chronic) (peripheral) (36) Ulcer of right lower extremity with fat layer exposed Status: Resolved Current Visit: No Code(s): L97.912 - Non-pressure chronic ulcer of unspecified part of right lower leg with fat layer exposed (37) Venous ulcers of both lower extremities Status: Resolved Current Visit: No Code(s): I87.2 - Venous insufficiency (chronic) (peripheral); L97.919 - Non-pressure chronic ulcer of unspecified part of right lower leg with unspecified severity; L97.929 - Non-pressure chronic ulcer of unspecified part of left lower leg with unspecified severity (38) Type 2 diabetes mellitus Status: Chronic Current Visit: Yes Code(s): E11.9 - Type 2 diabetes mellitus without complications Comment: Uncontrolled hemoglobin A1c on 08/18/2018 is 10.4 (39) Paroxysmal atrial fibrillation Status: Chronic Current Visit: No Code(s): I48.0 - Paroxysmal atrial fibrillation (40) History of aortic valve replacement with bioprosthetic valve Status: Chronic Current Visit: No Code(s): Z95.4 - Presence of other heart- valve replacement Comment: 23 mm Saint to trifecta GT valve in June 2016 at [facility]; (41) Pulmonary hypertension Status: Chronic Current Visit: No Code(s): I27.2 - Other secondary pulmonary hypertension History of Present Illness Date of Service: 10/21/19 Chief Complaint: Chronic bilateral lower extremity swelling and edema History of Wound: This is an 84-year-old female who recently presented with chronic swelling and edema in her lower extremities bilaterally. She was referred initially by her telephone diaphragm assembler. The patient has a Charcot foot deformity involving her left arch, for which she is under the care of a telephone diaphragm assembler. Surgery is contemplated for the near future. However, the swelling and edema in her lower extremities prompted her telephone diaphragm assembler to recommend consultation for evaluation and management. The patient is elderly and debilitated. Ambulation is limited. She walks with a cane. She is not very active, sitting for most of each day. She relates swelling in her lower extremities chronically. She indicates that her swelling has been treated with a water pill. Patient has multiple pre-existing medical problems, which are detailed below. The patient has previously been treated at our facility on multiple occasions in the past for venous ulcers of her lower extremity. It appears as though she is not compliant with the long-term recommendations related to the management of her lower extremity swelling, given that she sits for long periods each day, is not very active, and uses only Tommie wraps intermittently for compression to her lower extremities. Past Medical History Past Medical History: Chronic Problems (Last Reviewed 07/03/19 @ 10:52 by Sandy Valdez) Leg swelling (Chronic) Leg edema (Chronic) Rheumatoid arthritis (Chronic) Debility (Chronic) Overweight (BMI 25.0-29.9) (Chronic) CHF (congestive heart failure) (Chronic) Hypertension (Chronic) Hiatal hernia (Chronic) Dependent edema (Chronic) Chronic venous insufficiency (Chronic) Restless legs (Chronic) Peripheral arterial disease (Chronic) Charcot foot due to diabetes mellitus (Chronic) Mixed hyperlipidemia (Chronic) Moderate pulmonary arterial systolic hypertension (Chronic) LVH (left ventricular hypertrophy) (Chronic) Biatrial enlargement (Chronic) Chronic anticoagulation (Chronic) Chronic renal failure, stage 3 (moderate) (Chronic) Apixaban Overactive bladder (Chronic) Tinea unguium (Chronic) Hallux valgus (acquired), right foot (Chronic) Nonrheumatic mitral (valve) insufficiency (Chronic) Non-rheumatic tricuspid valve insufficiency (Chronic) Anxiety and depression (Chronic) Venous insufficiency of both lower extremities (Chronic) Type 2 diabetes mellitus (Chronic) Uncontrolled hemoglobin A1c on 08/18/2018 is 10.4 Paroxysmal atrial fibrillation (Chronic) History of aortic valve replacement with bioprosthetic valve (Chronic ~06/20/16) 23 mm Saint to trifecta GT valve in June 2016 at [facility]; Pulmonary hypertension (Chronic) Surgical History: - - Aortic valve replacement with bioprosthetic valve. Bilateral bunionectomy. Bilateral total knee replacement. The patient is a G0, P0 Ab0. Allergies/Adverse Reactions: Allergies No Known Allergies Allergy (Verified 07/03/19 10:50) Home Medications: Ambulatory Orders Medication Instructions Recorded metformin 1,000 mg tablet 1,000 mg PO BIDCM 0 Days 03/15/18 Atorvastatin Calcium 20 mg PO DAILY 07/08/18 Lisinopril [Zestril] 5 mg PO DAILY 07/08/18 Tolterodine Tartrate [Tolterodine 4 mg PO DAILY 07/08/18 Tartrate ER] Acetaminophen [Tylenol] 1,000 mg PO Q6H PRN PRN tab 08/06/18 Glimepiride [Amaryl] 4 mg PO BIDCM #60 tab 08/06/18 Iron Polysaccharide Complex 150 mg PO DAILYCM #30 cap 08/06/18 [Ferrex 150] Linagliptin [Tradjenta] 5 mg PO DAILY #30 tab 08/06/18 Pioglitazone [Actos] 30 mg PO DAILY@0800 #30 tab 08/06/18 apixaban 5 mg tablet 5 mg PO BID #180 tab 11/12/18 folic acid 1 mg tablet 2 mg PO DAILY tab 07/03/19 methotrexate sodium 2.5 mg tablet 10 mg PO QWEEK tab 07/03/19 - Family History Paternal Family History: Family History (Last Reviewed 07/03/19 @ 10:52 by Sandy Valdez) Father CAD (coronary artery disease) Mother CAD (coronary artery disease) Dementia, Heart Disease Maternal Family History: Family History (Last Reviewed 07/03/19 @ 10:52 by Sandy Valdez) Father CAD (coronary artery disease) Mother CAD (coronary artery disease) Heart Disease Smoking Status: Never smoker Tobacco Use: Non-smoker Review of Systems Constitutional: Denies: Chills, Fever, Weight Change Eyes: Denies: Pain, Vision Change HEENT: Denies: Difficulty Hearing, Difficulty Swallowing, Sinus Congestion Cardiovascular: Denies: Chest Pain, Palpitations Respiratory: Denies: Cough, Shortness of Breath Gastrointestinal: Denies: Diarrhea, Nausea, Vomiting Genitourinary: Denies: Dysuria, Hematuria Endocrine: Denies: Heat/ Cold Intolerance, Polydipsia, Polyuria Hematologic/ Lymphatic: Denies: Easy Bruising, Easy Bleeding - Physical Exam Vital Signs Temp Pulse Resp BP 97.5 F L 78 20 H 138/47 H 10/21/19 10:26 10/21/19 10:26 10/21/19 10:26 10/21/19 10:26 General: Alert, Oriented x3, Cooperative, No apparent distress, Well developed, Well nourished HEENT: Atraumatic, PERRLA, EOMI, Normocephalic Oral: Moist Mucosa Neck: No JVD Lungs: Normal air movement Abdomen: Non-Distended Extremities: No clubbing, No cyanosis, No Calf Tenderness, - - Onychomycosis is noted involving the toenails. Charcot foot deformity is noted involving the left foot. Scattered varicosities are noted in the lower extremities bilaterally. There are no open wounds or ulcerations on either lower extremity. Mild swelling and edema persist in the lower extremities bilaterally. However, the swelling and edema has improved in recent weeks. Skin: No rashes Wound Measurements and Assessment WC - Nurse 1 - General Ulcer Measurement Start: 10/21/19 10:24 Freq: Status: Active Protocol: Activity Type Activity Date Activity User E-Sign Co-Sign Detail Recorded Client Recorded Date Recorded By Document 10/21/19 10:26 DL [id number] 10/21/19 10:36 DL 10/21/19 10:26 Wound Center Nurse 1 [Edema Assessment] -Right Calf (cm) 33 -Right Ankle (cm) 21.5 -Left Calf (cm) 42 -Left Ankle (cm) 23 Neurological: Cranial nerves II-XII grossly intact, Neuro grossly intact Psych/Mental Status: Normal Affect, Appropriate, Alert and oriented to time, place, person, mood and affect Debridement Note No debridement was completed today - There are no open wounds or ulcerations. Assessment/Plan Active Problems (Last Reviewed 07/03/19 @ 10:52 by Sandy Valdez) Leg swelling (Chronic) Leg edema (Chronic) Debility (Chronic) Overweight (BMI 25.0-29.9) (Chronic) Dependent edema (Chronic) Chronic venous insufficiency (Chronic) Restless legs (Chronic) Peripheral arterial disease (Chronic) Charcot foot due to diabetes mellitus (Chronic) Venous insufficiency of both lower extremities (Chronic) Type 2 diabetes mellitus (Chronic) Uncontrolled hemoglobin A1c on 08/18/2018 is 10.4 Assessment: This is an 84 year-old female with a long list of pre-existing medical problems. She presents with swelling and edema in her lower extre mities, which has been chronic in nature. She has a history of ulcerations in the past, thought to be a venous origin. The patient is relatively inactive and immobile. She sits for long periods each day. It appears as though the swelling and edema in the patient's lower extremities is related to lifestyle habits. Pre-existing venous disease also appears to be a contributing factor. Plan: We are to continue conservative treatment measures relative to the patient's lower extremity swelling and edema. She has been counseled as to the appropriate measures to be implemented. Leg elevation is to be implemented, even during daytime hours. The patient currently sleeps on a flat mattress at night. This is to be continued. She has been encouraged to elevate her lower extremities to heart level, or higher, even during daytime hours. Prolonged idle sitting has been discouraged. Activity has been encouraged, though the patient's debility will likely prevent significant enhancement of her activity level. A noninvasive lower extremity arterial study has been performed, revealing relatively normal arterial flow at ankle level bilaterally. Moderate, distal, small vessel arterial occlusive disease is noted at digital level bilaterally. We are to continue compression to the lower extremities by means of a 3M 2 layer compression wrap, which will be changed twice weekly. However, the patient has been provided a prescription for graduated compression stockings of 10 to 15 mmHg compression. We are to assist the patient in obtaining these compression stockings. If the patient is able to don the stockings, we may consider a second pair to enhance the level of compression. Patient is to return twice weekly for a change of her compression wraps until which time she has obtained her graduated compression stockings. Reevaluation will be planned for 1 week. We are to defer issues related to her left Charcot foot deformity to her telephone diaphragm assembler, who is currently engaged in the patient's care. As result of the patient's recent fall, and the presence of ecchymoses on the left foot, an x-ray of the left foot has been obtained, revealing a nondisplaced fracture at the base of the proximal phalanx of the left fifth digit. Patient is under the oversight of Dr. Costa, podiatric specialist. The patient will return in 1 week. She appears to be doing well at this time. Once she is able to obtain the graduated compression stockings, and demonstrates an ability to don the stockings appropriately, discharge will be will follow thereafter. Influenza vaccine was not administered today. The patient is not a smoker. The patient is 5 feet 3 inches tall. She weighs 156 pounds. Her BMI is 27.6, which places the patient in an overweight category. Weight optimization has been recommended, in collaboration with the patient's primary care physician has been advised. This note was generated with [employer] dictation software. It may contain incorrect words, spelling, and punctuation that were not noted in checking the note before signing.
[2019-10-24 09:16] VITALS: BP 149/55; PULSE 91; RESP 16; TEMP 37; BMI 27.4
[2019-10-28 09:08] VITALS: BP 127/52; PULSE 71; RESP 18; TEMP 36.7; BMI 27.4
--- NOTE | 2019-10-28 09:38 | HP.PCM_ITS ---
(1) Leg swelling Status: Chronic Current Visit: Yes Code(s): M79.89 - Other specified soft tissue disorders (2) Leg edema Status: Chronic Current Visit: Yes Code(s): R60.0 - Localized edema (3) Rheumatoid arthritis Status: Chronic Current Visit: No Code(s): M06.9 - Rheumatoid arthritis, unspecified (4) Debility Status: Chronic Current Visit: Yes Code(s): R53.81 - Other malaise (5) Overweight (BMI 25.0-29.9) Status: Chronic Current Visit: Yes (6) CHF (congestive heart failure) Status: Chronic Current Visit: No Code(s): I50.9 - Heart failure, unspecified (7) Hypertension Status: Chronic Current Visit: No Code(s): I10 - Essential (primary) hypertension (8) Hiatal hernia Status: Chronic Current Visit: No Code(s): K44.9 - Diaphragmatic hernia without obstruction or gangrene (9) Dependent edema Status: Chronic Current Visit: Yes Code(s): R60.9 - Edema, unspecified (10) Chronic venous insufficiency Status: Chronic Current Visit: Yes Code(s): I87.2 - Venous insufficiency (chronic) (peripheral) (11) Restless legs Status: Chronic Current Visit: Yes Code(s): G25.81 - Restless legs syndrome (12) Peripheral arterial disease Status: Chronic Current Visit: Yes Code(s): I73.9 - Peripheral vascular disease, unspecified (13) Charcot foot due to diabetes mellitus Status: Chronic Current Visit: Yes Code(s): E11.610 - Type 2 diabetes mellitus with diabetic neuropathic arthropathy (14) Mixed hyperlipidemia Status: Chronic Current Visit: No Code(s): E78.2 - Mixed hyperlipidemia (15) Moderate pulmonary arterial systolic hypertension Status: Chronic Current Visit: No Code(s): I27.21 - Secondary pulmonary arterial hypertension (16) LVH (left ventricular hypertrophy) Status: Chronic Current Visit: No Code(s): I51.7 - Cardiomegaly (17) Biatrial enlargement Status: Chronic Current Visit: No Code(s): I51.7 - Cardiomegaly (18) Chronic anticoagulation Status: Chronic Current Visit: No Code(s): 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 (19) Chronic renal failure, stage 3 (moderate) Status: Chronic Current Visit: No Code(s): N18.3 - Chronic kidney disease, stage 3 (moderate) Comment: Apixaban (20) Bronchitis Status: Acute Current Visit: No Code(s): J40 - Bronchitis, not specified as acute or chronic Comment: Secondary to RSV B (21) Overactive bladder Status: Chronic Current Visit: No Code(s): N32.81 - Overactive bladder (22) Tinea unguium Status: Chronic Current Visit: No Code(s): B35.1 - Tinea unguium (23) Hallux valgus (acquired), right foot Status: Chronic Current Visit: No Code(s): M20.11 - Hallux valgus (acquired), right foot (24) Peripheral vascular disease Status: Suspected Current Visit: Yes Code(s): I73.9 - Peripheral vascular d isease, unspecified (25) Nonrheumatic mitral (valve) insufficiency Status: Chronic Current Visit: No Code(s): I34.0 - Nonrheumatic mitral (valve) insufficiency (26) Non-rheumatic tricuspid valve insufficiency Status: Chronic Current Visit: No Code(s): I36.1 - Nonrheumatic tricuspid (valve) insufficiency (27) Anxiety and depression Status: Chronic Current Visit: No Code(s): F41.8 - Other specified anxiety disorders (28) Venous insufficiency of both lower extremities Status: Chronic Current Visit: Yes Code(s): I87.2 - Venous insufficiency (chronic) (peripheral) (29) Type 2 diabetes mellitus Status: Chronic Current Visit: Yes Code(s): E11.9 - Type 2 diabetes mellitus without complications Comment: Uncontrolled hemoglobin A1c on 08/18/2018 is 10.4 (30) Paroxysmal atrial fibrillation Status: Chronic Current Visit: No Code(s): I48.0 - Paroxysmal atrial fibrillation (31) History of aortic valve replacement with bioprosthetic valve Status: Chronic Current Visit: No Code(s): Z95.4 - Presence of other heart- valve replacement Comment: 23 mm Saint to trifecta GT valve in June 2016 at [facility]; (32) Pulmonary hypertension Status: Chronic Current Visit: No Code(s): I27.2 - Other secondary pulmonary hypertension History of Present Illness Date of Service: 10/28/19 Chief Complaint: Chronic bilateral lower extremity swelling and edema History of Wound: This is an 84-year-old female who recently presented with chronic swelling and edema in her lower extremities bilaterally. She was referred initially by her technical inspector. The patient has a Charcot foot deformity involving her left arch, for which she is under the care of a technical inspector. Surgery is contemplated for the near future. However, the swelling and edema in her lower extremities prompted her technical inspector to recommend consultation for evaluation and management. The patient is elderly and debilitated. Ambulation is limited. She walks with a cane. She is not very active, sitting for most of each day. She relates swelling in her lower extremities chronically. She indicates that her swelling has been treated with a water pill. Patient has multiple pre-existing medical problems, which are detailed below. The patient has previously been treated at our facility on multiple occasions in the past for venous ulcers of her lower extremity. It appears as though she is not compliant with the long-term recommendations related to the management of her lower extremity swelling, given that she sits for long periods each day, is not very active, and uses only Tommie wraps intermittently for compression to her lower extremities. Past Medical History Past Medical History: Chronic Problems (Last Reviewed 07/03/19 @ 10:52 by Sandy Valdze) Leg swelling (Chronic) Leg edema (Chronic) Rheumatoid arthritis (Chronic) Debility (Chronic) Overweight (BMI 25.0-29.9) (Chronic) CHF (congestive heart failure) (Chronic) Hypertension (Chronic) Hiatal hernia (Chronic) Dependent edema (Chronic) Chronic venous insufficiency (Chronic) Restless legs (Chronic) Peripheral arterial disease (Chronic) Charcot foot due to diabetes mellitus (Chronic) Mixed hyperlipidemia (Chronic) Moderate pulmonary arterial systolic hypertension (Chronic) LVH (left ventricular hypertrophy) (Chronic) Biatrial enlargement (Chronic) Chronic anticoagulation (Chronic) Chronic renal failure, stage 3 (moderate) (Chronic) Apixaban Overactive bladder (Chronic) Tinea unguium (Chronic) Hallux valgus (acquired), right foot (Chronic) Nonrheumatic mitral (valve) insufficiency (Chronic) Non-rheumatic tricuspid valve insufficiency (Chronic) Anxiety and depression (Chronic) Venous insufficiency of both lower extremities (Chronic) Type 2 diabetes mellitus (Chronic) Uncontrolled hemoglobin A1c on 08/18/2018 is 10.4 Paroxysmal atrial fibrillation (Chronic) History of aortic valve replacement with bioprosthetic valve (Chronic ~06/20/16) 23 mm Saint to trifecta GT valve in June 2016 at [facility]; Pulmonary hypertension (Chronic) Surgical History: - - Aortic valve replacement with bioprosthetic valve. Bilateral bunionectomy. Bilateral total knee replacement. The patient is a G0, P0 Ab0. Allergies/Adverse Reactions: Allergies No Known Allergies Allergy (Verified 07/03/19 10:50) Home Medications: Ambulatory Orders Medication Instructions Recorded metformin 1,000 mg tablet 1,000 mg PO BIDCM 0 Days 03/15/18 Atorvastatin Calcium 20 mg PO DAILY 07/08/18 Lisinopril [Zestril] 5 mg PO DAILY 07/08/18 Tolterodine Tartrate [Tolterodine 4 mg PO DAILY 07/08/18 Tartrate ER] Acetaminophen [Tylenol] 1,000 mg PO Q6H PRN PRN tab 08/06/18 Glimepiride [Amaryl] 4 mg PO BIDCM #60 tab 08/06/18 Iron Polysaccharide Complex 150 mg PO DAILYCM #30 cap 08/06/18 [Ferrex 150] Linagliptin [Tradjenta] 5 mg PO DAILY #30 tab 08/06/18 Pioglitazone [Actos] 30 mg PO DAILY@0800 #30 tab 08/06/18 apixaban 5 mg tablet 5 mg PO BID #180 tab 11/12/18 folic acid 1 mg tablet 2 mg PO DAILY tab 07/03/19 methotrexate sodium 2.5 mg tablet 10 mg PO QWEEK tab 07/03/19 - Family History Paternal Family History: Family History (Last Reviewed 07/03/19 @ 10:52 by Sandy Valdez) Father CAD (coronary artery disease) Mother CAD (coronary artery disease) Dementia, Heart Disease Maternal Family History: Family History (Last Reviewed 07/03/19 @ 10:52 by Sandy Valdez) Father CAD (coronary artery disease) Mother CAD (coronary artery disease) Heart Disease Smoking Status: Never smoker Tobacco Use: Non-smoker Review of Systems Constitutional: Denies: Chills, Fever, Weight Change Eyes: Denies: Pain, Vision Change HEENT: Denies: Difficulty Hearing, Difficulty Swallowing, Sinus Congestion Cardiovascular: Denies: Chest Pain, Palpitations Respiratory: Denies: Cough, Shortness of Breath Gastrointestinal: Denies: Diarrhea, Nausea, Vomiting Genitourinary: Denies: Dysuria, Hematuria Endocrine: Denies: Heat/ Cold Intolerance, Polydipsia, Polyuria Hematologic/ Lymphatic: Denies: Easy Bruising, Easy Bleeding - Physical Exam Vital Signs Temp Pulse Resp BP 98.1 F 71 18 127/52 H 10/28/19 09:08 10/28/19 09:08 10/28/19 09:08 10/28/19 09:08 General: Alert, Oriented x3, Cooperative, No apparent distress, Well developed, Well nourished HEENT: Atraumatic, PERRLA, EOMI, Normocephalic Oral: Moist Mucosa Neck: No JVD Lungs: Normal air movement Abdomen: Non-Distended Extremities: No clubbing, No cyanosis, No Calf Tenderness, - - There is only minimal swelling and edema in the patient's lower extremities bilaterally. There has been marked improvement. There are scattered varicosities in both lower extremities. There are no open wounds or ulcerations. A Charcot left foot deformity is noted. The patient's toenails and fingernails are unkempt, dirty, with evidence of onychomycosis. Skin: No rashes Wound Measurements and Assessment WC - Nurse 1 - General Ulcer Measurement Start: 10/21/19 10:24 Freq: Status: Active Protocol: Activity Type Activity Date Activity User E-Sign Co-Sign Detail Recorded Client Recorded Date Recorded By Document 10/28/19 09:08 RB [id number] 10/28/19 09:09 RB 10/28/19 09:08 Wound Center Nurse 1 [Edema Assessment] -Lower Limb Edema Present Yes -Right Calf (cm) 35 -Right Ankle (cm) 22 -Left Calf (cm) 34.5 -Left Ankle (cm) 22.2 WC - Nurse 2 - General Ulcer CM Notes Start: 10/21/19 10:24 Freq: Status: Active Protocol: Activity Type Activity Date Activity User E-Sign Co-Sign Detail Recorded Client Recorded Date Recorded By Document 10/28/19 09:35 DV [id number] 10/28/19 09:36 DV 10/28/19 09:35 Pain Scale: 0-10 Numeric [Pain] -Is Patient Pain Free? Yes Musculoskeletal: No Muscle Wasting Neurological: Cranial nerves II-XII grossly intact, Neuro grossly intact Psych/Mental Status: Normal Affect, Appropriate, Alert and oriented to time, place, person, mood and affect Debridement Note Post-Debridement Measurements/Treatment WC - Nurse 2 - General Ulcer CM Notes Start: 10/21/19 10:24 Freq: Status: Active Protocol: Activity Type Activity Date Activity User E-Sign Co-Sign Detail Recorded Client Recorded Date Recorded By Document 10/21/19 11:27 DV [id number] 10/21/19 11:29 DV Document 10/28/19 09:35 DV [id number] 10/28/19 09:36 DV 10/21/19 10/28/19 11:27 09:35 Pain Scale: 0-10 Numeric Is Patient Pain Free? Yes Yes No debridement was completed today - There are no open wounds or ulcerations. Assessment/Plan Active Problems (Last Reviewed 07/03/19 @ 10:52 by Sandy Valdez) Leg swelling (Chronic) Leg edema (Chronic) Debility (Chronic) Overweight (BMI 25.0-29.9) (Chronic) Dependent edema (Chronic) Chronic venous insufficiency (Chronic) Restless legs (Chronic) Peripheral arterial disease (Chronic) Charcot foot due to diabetes mellitus (Chronic) Venous insufficiency of both lower extremities (Chronic) Type 2 diabetes mellitus (Chronic) Uncontrolled hemoglobin A1c on 08/18/2018 is 10.4 Assessment: This is an 84 year-old female with a long list of pre-existing medical problems. She presents with swelling and edema in her lower extremities, which has been chronic in nature. She has a history of ulcerations in the past, thought to be a venous origin. The patient is relatively inactive and immobile. She sits for long periods each day. It appears as though the swelling and edema in the patient's lower extremities is related to lifestyle habits. Pre-existing venous disease also appears to be a contributing factor. Plan: We are to continue conservative treatment measures relative to the patient's lower extremity swelling and edema. She has been counseled as to the appropriate measures to be implemented. Leg elevation is to be implemented, even during daytime hours. The patient currently sleeps on a flat surface at night. This is to be continued. She has been encouraged to elevate her lower extremities to heart level, or higher, even during daytime hours. Prolonged idle sitting has been discouraged. Activity has been encouraged, though the patient's debility will likely prevent significant enhancement of her activity level. A noninvasive lower extremity arterial study has been performed, revealing relatively normal arterial flow at ankle level bilaterally. Moderate, distal, small vessel arterial occlusive disease is noted at digital level bilaterally. We are to continue compression to the lower extremities by means of graduated compression stockings of 10 to 15 mmHg compression, which the patient has in her possession. She is to wear these daily, donning each mornin g, and doffing at bedtime. If the patient is able to don the stockings, we may consider a second pair to enhance the level of compression. Reevaluation will be planned for 1 week. We are to defer issues related to her left Charcot foot deformity to her technical inspector, who is currently engaged in the patient's care. As result of the patient's recent fall, and the presence of ecchymoses on the left foot, an x-ray of the left foot has been obtained, revealing a nondisplaced fracture at the base of the proximal phalanx of the left fifth digit. Patient is under the oversight of Dr. Costa, podiatric specialist. The patient will return in 1 week. She appears to be doing well at this time. Once she is able to obtain the graduated compression stockings, and demonstrates an ability to don the stockings appropriately, discharge will be will follow thereafter. Influenza vaccine was not administered today. The patient is not a smoker. The patient is 5 feet 3 inches tall. She weighs 156 pounds. Her BMI is 27.6, which places the patient in an overweight category. Weight optimization has been recommended, in collaboration with the patient's primary care physician has been advised. This note was generated with [employer] software. It may contain incorrect words, spelling, and punctuation that were not noted in checking the note before signing.
--- NOTE | 2019-10-28 09:52 | PCM.WC.HP ---
(1) Leg swelling Status: Chronic Current Visit: Yes Code(s): M79.89 - Other specified soft tissue disorders (2) Leg edema Status: Chronic Current Visit: Yes Code(s): R60.0 - Localized edema (3) Rheumatoid arthritis Status: Chronic Current Visit: No Code(s): M06.9 - Rheumatoid arthritis, unspecified (4) Debility Status: Chronic Current Visit: Yes Code(s): R53.81 - Other malaise (5) Overweight (BMI 25.0-29.9) Status: Chronic Current Visit: Yes (6) CHF (congestive heart failure) Status: Chronic Current Visit: No Code(s): I50.9 - Heart failure, unspecified (7) Hypertension Status: Chronic Current Visit: No Code(s): I10 - Essential (primary) hypertension (8) Hiatal hernia Status: Chronic Current Visit: No Code(s): K44.9 - Diaphragmatic hernia without obstruction or gangrene (9) Dependent edema Status: Chronic Current Visit: Yes Code(s): R60.9 - Edema, unspecified (10) Chronic venous insufficiency Status: Chronic Current Visit: Yes Code(s): I87.2 - Venous insufficiency (chronic) (peripheral) (11) Restless legs Status: Chronic Current Visit: Yes Code(s): G25.81 - Restless legs syndrome (12) Peripheral arterial disease Status: Chronic Current Visit: Yes Code(s): I73.9 - Peripheral vascular disease, unspecified (13) Charcot foot due to diabetes mellitus Status: Chronic Current Visit: Yes Code(s): E11.610 - Type 2 diabetes mellitus with diabetic neuropathic arthropathy (14) Mixed hyperlipidemia Status: Chronic Current Visit: No Code(s): E78.2 - Mixed hyperlipidemia (15) Moderate pulmonary arterial systolic hypertension Status: Chronic Current Visit: No Code(s): I27.21 - Secondary pulmonary arterial hypertension (16) LVH (left ventricular hypertrophy) Status: Chronic Current Visit: No Code(s): I51.7 - Cardiomegaly (17) Biatrial enlargement Status: Chronic Current Visit: No Code(s): I51.7 - Cardiomegaly (18) Chronic anticoagulation Status: Chronic Current Visit: No Code(s): 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 (19) Chronic renal failure, stage 3 (moderate) Status: Chronic Current Visit: No Code(s): N18.3 - Chronic kidney disease, stage 3 (moderate) Comment: Apixaban (20) Bronchitis Status: Acute Current Visit: No Code(s): J40 - Bronchitis, not specified as acute or chronic Comment: Secondary to RSV B (21) Overactive bladder Status: Chronic Current Visit: No Code(s): N32.81 - Overactive bladder (22) Tinea unguium Status: Chronic Current Visit: No Code(s): B35.1 - Tinea unguium (23) Hallux valgus (acquired), right foot Status: Chronic Current Visit: No Code(s): M20.11 - Hallux valgus (acquired), right foot (24) Peripheral vascular disease Status: Suspected Current Visit: Yes Code(s): I73.9 - Peripheral vascular disease, unspecified (25) Nonrheumatic mitral (valve) insufficiency Status: Chronic Current Visit: No Code(s): I34.0 - Nonrheumatic mitral (valve) insufficiency (26) Non-rheumatic tricuspid valve insufficiency Status: Chronic Current Visit: No Code(s): I36.1 - Nonrheumatic tricuspid (valve) insufficiency (27) Anxiety and depression Status: Chronic Current Visit: No Code(s): F41.8 - Other specified anxiety disorders (28) Venous insufficiency of both lower extremities Status: Chronic Current Visit: Yes Code(s): I87.2 - Venous insufficiency (chronic) (peripheral) (29) Type 2 diabetes mellitus Status: Chronic Current Visit: Yes Code(s): E11.9 - Type 2 diabetes mellitus without complications Comment: Uncontrolled hemoglobin A1c on 08/18/2018 is 10.4 (30) Paroxysmal atrial fibrillation Status: Chronic Current Visit: No Code(s): I48.0 - Paroxysmal atrial fibrillation (31) History of aortic valve replacement with bioprosthetic valve Status: Chronic Current Visit: No Code(s): Z95.4 - Presence of other heart-valve replacement Comment: 23 mm Saint to trifecta GT valve in June 2016 at [facility]; (32) Pulmonary hypertension Status: Chronic Current Visit: No Code(s): I27.2 - Other secondary pulmonary hypertension History of Present Illness Date of Service: 03/10/20 Chief Complaint: Chronic bilateral lower extremity swelling and edema History of Wound: This is an 84-year-old female who recently presented with chronic swelling and edema in her lower extremities bilaterally. She was referred initially by her agile java developer. The patient has a Charcot foot deformity involving her left arch, for which she is under the care of a agile java developer. Surgery is contemplated for the near future. However, the swelling and edema in her lower extremities prompted her agile java developer to recommend consultation for evaluation and management. The patient is elderly and debilitated. Ambulation is limited. She walks with a cane. She is not very active, sitting for most of each day. She relates swelling in her lower extremities chronically. She indicates that her swelling has been treated with a water pill. Patient has multiple pre-existing medical problems, which are detailed below. The patient has previously been treated at our facility on multiple occasions in the past for venous ulcers of her lower extremity. It appears as though she is not compliant with the long-term recommendations related to the management of her lower extremity swelling, given that she sits for long periods each day, is not very active, and uses only Tommie wraps intermittently for compression to her lower extremities. Past Medical History Past Medical History: Chronic Problems (Last Reviewed 07/03/19 @ 10:52 by Sandy Valdez) Leg swelling (Chronic) Leg edema (Chronic) Rheumatoid arthritis (Chronic) Debility (Chronic) Overweight (BMI 25.0-29.9) (Chronic) CHF (congestive heart failure) (Chronic) Hypertension (Chronic) Hiatal hernia (Chronic) Dependent edema (Chronic) Chronic venous insufficiency (Chronic) Restless legs (Chronic) Peripheral arterial disease (Chronic) Charcot foot due to diabetes mellitus (Chronic) Mixed hyperlipidemia (Chronic) Moderate pulmonary arterial systolic hypertension (Chronic) LVH (left ventricular hypertrophy) (Chronic) Biatrial enlargement (Chronic) Chronic anticoagulation (Chronic) Chronic renal failure, stage 3 (moderate) (Chronic) Apixaban Overactive bladder (Chronic) Tinea unguium (Chronic) Hallux valgus (acquired), right foot (Chronic) Nonrheumatic mitral (valve) insufficiency (Chronic) Non-rheumatic tricuspid valve insufficiency (Chronic) Anxiety and depression (Chronic) Venous insufficiency of both lower extremities (Chronic) Type 2 diabetes mellitus (Chronic) Uncontrolled hemoglobin A1c on 08/18/2018 is 10.4 Paroxysmal atrial fibrillation (Chronic) History of aortic valve replacement with bioprosthetic valve (Chronic ~06/20/16) 23 mm Saint to trifecta GT valve in June 2016 at [facility]; Pulmonary hypertension (Chronic) Surgical History: - - Aortic valve replacement with bioprosthetic valve. Bilateral bunionectomy. Bilateral total knee replacement. The patient is a G0, P0 Ab0. Allergies/Adverse Reactions: Allergies No Known Allergies Allergy (Verified 07/03/19 10:50) Home Medications: Ambulatory Orders Medication Instructions Recorded metformin 1,000 mg tablet 1,000 mg PO BIDCM 0 Days 03/15/18 Atorvastatin Calcium 20 mg PO DAILY 07/08/18 Lisinopril [Zestril] 5 mg PO DAILY 07/08/18 Tolterodine Tartrate [Tolterodine 4 mg PO DAILY 07/08/18 Tartrate ER] Acetaminophen [Tylenol] 1,000 mg PO Q6H PRN PRN tab 08/06/18 Glimepiride [Amaryl] 4 mg PO BIDCM #60 tab 08/06/18 Iron Polysaccharide Complex 150 mg PO DAILYCM #30 cap 08/06/18 [Ferrex 150] Linagliptin [Tradjenta] 5 mg PO DAILY #30 tab 08/06/18 Pioglitazone [Actos] 30 mg PO DAILY@0800 #30 tab 08/06/18 apixaban 5 mg tablet 5 mg PO BID #180 tab 11/12/18 folic acid 1 mg tablet 2 mg PO DAILY tab 07/03/19 methotrexate sodium 2.5 mg tablet 10 mg PO QWEEK tab 07/03/19 - Family History Paternal Family History: Family History (Last Reviewed 07/03/19 @ 10:52 by Sandy Valdez) Father CAD (coronary artery disease) Mother CAD (coronary artery disease) Dementia, Heart Disease Maternal Family History: Family History (Last Reviewed 07/03/19 @ 10:52 by Sandy Valdez) Father CAD (coronary artery disease) Mother CAD (coronary artery disease) Heart Disease Smoking Status: Never smoker Tobacco Use: Non-smoker - Physical Exam Vital Signs Temp Pulse Resp BP 98.1 F 71 18 127/52 H 10/28/19 09:08 10/28/19 09:08 10/28/19 09:08 10/28/19 09:08 Wound Measurements and Assessment WC - Nurse 1 - General Ulcer Measurement Start: 10/21/19 10:24 Freq: Status: Active Protocol: Activity Type Activity Date Activity User E-Sign Co-Sign Detail Recorded Client Recorded Date Recorded By Document 10/28/19 09:08 RB [id number] 10/28/19 09:09 RB 10/28/19 09:08 Wound Center Nurse 1 [Edema Assessment] -Lower Limb Edema Present Yes -Right Calf (cm) 35 -Right Ankle (cm) 22 -Left Calf (cm) 34.5 -Left Ankle (cm) 22.2 WC - Nurse 2 - General Ulcer CM Notes Start: 10/21/19 10:24 Freq: Status: Active Protocol: Activity Type Activity Date Activity User E-Sign Co-Sign Detail Recorded Client Recorded Date Recorded By Document 10/28/19 09:35 DV [id number] 10/28/19 09:36 DV 10/28/19 09:35 Pain Scale: 0-10 Numeric [Pain] -Is Patient Pain Free? Yes Debridement Note Post-Debridement Measurements/Treatment WC - Nurse 2 - General Ulcer CM Notes Start: 10/21/19 10:24 Freq: Status: Active Protocol: Activity Type Activity Date Activity User E-Sign Co-Sign Detail Recorded Client Recorded Date Recorded By Document 10/21/19 11:27 DV [id number] 10/21/19 11:29 DV Document 10/28/19 09:35 DV [id number] 10/28/19 09:36 DV 10/21/19 10/28/19 11:27 09:35 Pain Scale: 0-10 Numeric Is Patient Pain Free? Yes Yes Assessment/Plan Active Problems (Last Reviewed 07/03/19 @ 10:52 by Sandy Valdez) Leg swelling (Chronic) Leg edema (Chronic) Debility (Chronic) Overweight (BMI 25.0-29.9) (Chronic) Dependent edema (Chronic) Chronic venous insufficiency (Chronic) Restless legs (Chronic) Peripheral arterial disease (Chronic) Charcot foot due to diabetes mellitus (Chronic) Venous insufficiency of both lower extremities (Chronic) Type 2 diabetes mellitus (Chronic) Uncontrolled hemoglobin A1c on 08/18/2018 is 10.4 Assessment: This is an 84 year-old female with a long list of pre-existing medical problems. She presents with swelling and edema in her lower extremities, which has been chronic in nature. She has a history of ulcerations in the past, thought to be a venous origin. The patient is relatively inactive and immobile. She sits for long periods each day. It appears as though the swelling and edema in the patient's lower extremities is related to lifestyle habits. Pre-existing venous disease also appears to be a contributing factor. Plan: We are to continue conservative treatment measures relative to the patient's lower extremity swelling and edema. She has been counseled as to the appropriate measures to be implemented. Leg elevation is to be implemented, even during daytime hours. The patient currently sleeps on a flat surface at night. This is to be continued. She has been encouraged to elevate her lower extremities to heart level, or higher, even during daytime hours. Prolonged idle sitting has been discouraged. Activity has been encouraged, though the patient's debility will likely prevent significant enhancement of her activity level. A noninvasive lower extremity arterial study has been performed, revealing relatively normal arterial flow at ankle level bilaterally. Moderate, distal, small vessel arterial occlusive disease is noted at digital level bilaterally. We are to continue compression to the lower extremities by means of graduated compression stockings of 10 to 15 mmHg compression, which the patient has in her possession. She is to wear these daily, donning each morning, and doffing at bedtime. If the patient is able to don the stockings, we may consider a second pair to enhance the level of compression. Reevaluation will be planned for 1 week. We are to defer issues related to her left Charcot foot deformity to her agile java developer, who is currently engaged in the patient's care. As result of the patient's recent fall, and the presence of ecchymoses on the left foot, an x-ray of the left foot has been obtained, revealing a nondisplaced fracture at the base of the proximal phalanx of the left fifth digit. Patient is under the oversight of Dr. Costa, podiatric specialist. The patient will return in 1 week. She appears to be doing well at this time. Once she is able to obtain the graduated compression stockings, and demonstrates an ability to don the stockings appropriately, discharge will be will follow thereafter. Influenza vaccine was not administered today. The patient is not a smoker. The patient is 5 feet 3 inches tall. She weighs 156 pounds. Her BMI is 27.6, which places the patient in an overweight category. Weight optimization has been recommended, in collaboration with the patient's primary care physician has been advised. This note was generated with eyetok dictation software. It may contain incorrect words, spelling, and punctuation that were not noted in checking the note before signing. As a follow-up to that which was dictated earlier today, it is noted that the patient's [id number] compression stockings, 10 to 15 mmHg compression, are longer than necessary, and that the patient is unable to don the stockings due to severe arthritis in her hands. Therefore, the ultimate plan is to provide the patient with a prescription for graduated compression stockings of 10 to 15 mmHg compression, to be obtained at a medical supply store, properly fitted. The patient will also be prescribed a donning device, which will assist her in the donning of the stockings on a daily basis. It is hoped that this protocol will be appropriate, and will enable the patient to don her stockings on a daily basis. An alternative option involving CircAid garments may not be feasible, as the patient's limitations by arthritis would likely prevent the application of these garments as well. Patient is to return in 2 weeks, at which time it is anticipated that she will have obtained her compression stockings, and it will be evident as to whether she is able to don the compression stockings as recommended.
--- NOTE | 2019-10-28 09:57 | WC ---
pt had difficulty doning stocking. made aware and Kiera Wilfrido . pt then given Rx for support stockings and doning tool for stockings
== END 2019-11-18 23:59 ==
LOC: WC 09:00
PROVIDERS: PCP Family Medicine; Referring Provider Surgery; Visit Provider Surgery
DX: I87.2 Venous insufficiency (chronic) (peripheral) (principal); M79.89 Other specified soft tissue disorders; R60.0 Localized edema; M06.9 Rheumatoid arthritis, unspecified; I50.9 Heart failure, unspecified; G25.81 Restless legs syndrome; E11.621 Type 2 diabetes mellitus with foot ulcer; E11.610 Type 2 diabetes mellitus with diabetic neuropathic arthropathy; E11.22 Type 2 diabetes mellitus with diabetic chronic kidney disease; E11.51 Type 2 diabetes mellitus with diabetic peripheral angiopathy without gangrene; E78.2 Mixed hyperlipidemia; I27.21 Secondary pulmonary arterial hypertension; N18.3 Chronic kidney disease, stage 3 (moderate); I13.0 Hypertensive heart and chronic kidney disease with heart failure and stage 1 through stage 4 chronic kidney disease, or unspecified chronic kidney disease; M20.11 Hallux valgus (acquired), right foot; M86.671 Other chronic osteomyelitis, right ankle and foot; E11.69 Type 2 diabetes mellitus with other specified complication; I48.0 Paroxysmal atrial fibrillation; Z95.4 Presence of other heart-valve replacement; Z79.01 Long term (current) use of anticoagulants; Z79.4 Long term (current) use of insulin; Z79.899 Other long term (current) drug therapy; B35.1 Tinea unguium
CPT/HCPCS: 29581; 99212; G0463

== ENCOUNTER → 2019-11-14 11:01 | Outpatient (CLI) | payer MEDICARE, OTHER, SELFPAY ==
[2019-10-28 09:08] VITALS: BMI 27.4
== END ==
PROVIDERS: PCP Family Medicine; Visit Provider Family Medicine
DX: N39.0 Urinary tract infection, site not specified (principal)
CPT/HCPCS: 87086; 87088; 87186

== ENCOUNTER → 2019-12-03 17:13 | Outpatient (CLI) | payer MEDICARE, OTHER, SELFPAY ==
--- NOTE | 2019-12-03 17:21 | RAD_ITS ---
STUDY: X-RAY - SACROILIAC JOINTS REASON FOR EXAM: Female, 84 years old. LEFT hip pain, left back pain TECHNIQUE: 3 view(s) of the sacroiliac joints were obtained. COMPARISON: CT pelvis 05/23/2018 FINDINGS: There are degenerative changes of the bilateral sacroiliac joints with sclerosis as well as joint space narrowing. There is mild sclerosis along the iliac side. No large spur formation. Limited visualization of the sacral ala and sacrum likely due to osteoporosis and superimposed bowel gas. Normal visualized iliac bones. There are atherosclerotic vascular calcifications. Degenerative changes of the lower lumbar spine. RAD/S-I Jts 3 or More Views IMPRESSION: Degenerative changes of the bilateral sacroiliac joints as seen on previous CT pelvis. Osteoporosis and arteriosclerosis. Electronically Signed: Jessi Nassar MD at 3:19 EDT , Service support ,
--- NOTE | 2019-12-03 17:25 | RAD_ITS ---
STUDY: X-RAY - PELVIS AND LEFT HIP REASON FOR EXAM: Female, 84 years old. Left hip pain, left back pain TECHNIQUE: 3 views of the pelvis and hip. COMPARISON: 07/08/18 FINDINGS: There is a non-specific bowel gas pattern. Normal visualized soft tissue structures. There are atherosclerotic vascular calcifications. Normal bilateral iliac wings, sacroiliac joints and visualized sacrum. Normal bilateral superior and inferior pubic rami. Normal pubic symphysis. Normal bilateral ischial tuberosities. Normal visualized femoral head. Normal acetabulum. Normal hip joint. RAD/HIP, UNI W/ Pelvis 2-3 Views IMPRESSION: No definite acute or significant abnormality seen. Electronically Signed: Masood Wu MD at 17:47 EDT , Service support ,
== END ==
PROVIDERS: PCP Family Medicine; Referring Provider Family Medicine; Visit Provider Family Medicine
DX: M25.552 Pain in left hip (principal); M54.5 Low back pain
CPT/HCPCS: 72202; 73502

== ENCOUNTER 2019-12-06 17:46 | Emergency (ER) | payer MEDICARE, OTHER, SELFPAY ==
[2019-12-06 17:47] VITALS: BP 157/76; PULSE 96; RESP 16; TEMP 36.9; O2SAT 99; BMI 46.6
[2019-12-06 18:30] LABS: Absolute Lymphocyte Count 0.75 X10^3/uL (0.83-4.51); Absolute Neutrophil Count 4.3 X10^3/uL (2.0-7.7); Basophil# 0.01 X10^3/uL; Basophil% 0.2 % (0-1); Eosinophil# 0.02 X10^3/uL; Eosinophils% 0.4 % (0-5); Hematocrit 29.8 % (37-47); Hemoglobin 9.7 g/dL (12.0-15.0); Lymphocyte # 0.75 X10^3/ul (4.0); Lymphocyte % 13.4 % (19-41); Mean Corp Hgb Conc 32.6 g/dL (32-36); Mean Corpuscular Hgb 29.2 pg (27.0-32.0); Mean Corpuscular Volume 89.8 fL (81-99); Mean Platelet Vol. 9.2 fl (6.2-12.0); Monocyte# 0.52 X10^3/uL; Monocyte% 9.3 % (0-10); NRBC Flagged by Analyzer 0 % (0-5); Neutrophil # 4.26 X10^3/uL (2.7-7.7); Platelet Count 298 K/mm3 (150-450); RBC Distribution Width CV 14.5 % (11.6-14.6); RBC Distribution Width SD 47.5 fl (35.1-43.9); Red Blood Count 3.32 M/mm3 (4.2-5.4); White Blood Count 5.6 K/mm3 (4.4-11.0)
--- NOTE | 2019-12-06 18:31 | RAD_ITS ---
STUDY: X-RAY - LEFT KNEE REASON FOR EXAM: Female, 84 years old. left knee pain with bruising. NKI TECHNIQUE: 4 view(s) of the knee. COMPARISON: None. FINDINGS: No acute osseous injury is evident. Total knee arthroplasty with normal alignment. Vascular calcifications. RAD/Knee 4 or More Views IMPRESSION: No acute osseous injury is evident. Electronically Signed: Kang Duke MD at 18:51 EDT Tel , Service support ,
[2019-12-06 18:36] LABS: International Normalized Ratio 1.1; Prothrombin Time (Protime)PT. 14.1 SECONDS (11.7-14.9)
[2019-12-06 18:38] LABS: Anion Gap 5 (5-15); BUN 13 mg/dL (7-18); BUN/Creat Ratio 30.1 RATIO (10-20); Calcium,Total 8.6 mg/dL (8.5-10.1); Chloride 92 mmol/L (98-107); Creatinine, Serum 0.43 mg/dL (0.55-1.02); EST Glomerular Filtration Rate 148 mL/min (>60); Est Glom Filt Rate - Afr Amer 180 mL/min (>60); Glucose 108 mg/dL (74-106); Potassium 4.2 mmol/L (3.5-5.1); Sodium Level 126 mmol/L (136-145)
--- NOTE | 2019-12-06 18:57 | ED.VIS.GEN ---
History of Present Illness Chief Complaint: Lower Extremity Injury Narrative: 84-year-old female presents with pain and swelling in her left leg essentially for the past week. She did not have direct trauma but states that she does sit a lot in a chair and feels that she may have injured the back of her leg near her knee when she was getting out of a chair 1 day. She did not fall. She has no paresthesias. No redness or warmth. She does notice ecchymosis on the medial aspect of her left knee and proximal calf. She is concerned that she may have a DVT. She does take oral anticoagulants for atrial fibrillation and denies history of DVT. She has not missed any doses of her anticoagulants either. The onset of her symptoms has been gradual. The severity is mild. Worse with palpation. Better with ice. Capacity - Capacity Assessment Tool Can the patient make a choice & communicate that choice?: Yes Past Medical History - Allergies and Home Meds Allergies/Adverse Reactions: Allergies No Known Allergies Allergy (Verified 12/06/19 17:49) Primary Care Physician: Chad Chang MD [Primary Care Provider] - Prior records reviewed: Yes Surgical History: - - Aortic valve replacement with bioprosthetic valve. Bilateral bunionectomy. Bilateral total knee replacement. The patient is a G0, P0 Ab0. Smoking Status: Never smoker - Family History Paternal Family History: Family History (Last Reviewed 07/03/19 @ 10:52 by Sandy Valdez) Father CAD (coronary artery disease) Mother CAD (coronary artery disease) Family History: Reports: Dementia, Heart Disease Maternal Family History: Family History (Last Reviewed 07/03/19 @ 10:52 by Sandy Valdez) Father CAD (coronary artery disease) Mother CAD (coronary artery disease) Family History: Reports: Heart Disease Review of Systems General: Denies: Chills, Fever, Sweats Eyes: Denies: Visual changes - bilaterally, Diplopia ENT: Denies: Rhinorrhea, Sore throat Cardiovascular: Denies: Chest pain, Palpitations Respiratory: Denies: Dyspnea, Cough, Dyspnea on exertion Gastrointestinal: Denies: Abdominal pain, Nausea, Vomiting, Diarrhea, Melena, Hematochezia Genitourinary: Denies: Dysuria, Hematuria, Frequency Musculoskeletal: Reports: Extremity Pain. Denies: Back pain Skin: Denies: Rash, Wounds Neurological: Denies: Headache, Weakness, Numbness Hematologic: Reports: Easy bruising Physical Exam Vital Signs/Narrative: Vital Signs Temp Pulse Resp BP Pulse Ox 12/06/19 17:47 98.4 F 96 16 157/76 H 99 General: Well nourished, Well developed, No Acute Distress Head: Normocephalic, Atraumatic Eyes: Perrl, EOMI ENT: Moist mucous membranes, No rhinorrhea Neck: Supple, Nontender Cardiovascular: Regular rate, Regular rhythm, No murmurs Respiratory: No distress, CTA bilaterally, Chest nontender Abdomen: Soft, Nontender, Nondistended, Normal bowel sounds Back: Nontender, Normal Inspection Extremities: - - He has mild swelling and tenderness at the left knee posteriorly and medially in the proximal calf. Minimal swelling. Strong distal pulse. No erythema or warmth. No petechiae. Mild ecchymosis. Compartments are soft. Skin: Normal color, No rash Neurological: Alert, Oriented x3, Cranial nerves II-XII grossly intact, Normal Strength, Normal Sensation Psychological: Normal affect, Normal Mood Diagnostic/Tx/Re-eval - Medical Decision Making My suspicion for DVT is low. She is anticoagulated. Mostly her pain and tenderness is at the knee. There is no evidence of septic joint. No evidence of compartment syndrome. Her platelets are not decreased. She has mild chronic anemia but not significantly changed. Her sodium is 126 but she does run quite low and has been lower than this before. I spoke with her about dietary intake and the importance of follow-up to have this rechecked. She states that this is a chronic issue for her. She otherwise looks well and I am unable to order a DVT ultrasound at this time due to restricted hours because of the coronavirus pandemic. I did order it for her to be performed tomorrow morning as an outpatient. She is comfortable with this plan and can come back. She will continue her anticoagulants for now. ED Disposition - Plan for ED Patient: Disposition: Home or Assisted Living Diagnosis: Hematoma of left lower extremity, Hyponatremia Instructions: ED Hematoma, ED Hyponatremia Referrals: Chad Chang MD [Primary Care Provider] -
[2019-12-06 19:24] VITALS: RESP 16
--- NOTE | 2019-12-06 19:24 | ED.RN ---
PT AWARE THAT HOSPITAL WILL CALL TOMORROW TO SCHEDULE DVT STUDY. REVIEWED D/C INSTRUCTIONS, FOLLOW UP CARE, AND S/S THAT WOULD WARRANT A RETURN TO THE ED WITH PT. PT VERBALIZED AND DENIES FURTHER QUESTIONS FOR THIS RN. PT SKIN P/W/D, RESP EVEN AND UNLABORED, PT A&O X 3, NO DISTRESS NOTED. PT ASSISTED OUT OF ED IN WHEELCHAIR.
== END 2019-12-06 19:28 | disposition home or self-care (01) ==
PROVIDERS: Emergency Provider Emergency Medicine; PCP Family Medicine
DX: S80.12XA Contusion of left lower leg, initial encounter (principal); E87.1 Hypo-osmolality and hyponatremia; Z96.653 Presence of artificial knee joint, bilateral; Z82.49 Family history of ischemic heart disease and other diseases of the circulatory system; I48.91 Unspecified atrial fibrillation; Z79.01 Long term (current) use of anticoagulants; X58.XXXA Exposure to other specified factors, initial encounter; Y92.9 Unspecified place or not applicable; Y99.9 Unspecified external cause status
CPT/HCPCS: 73564; 80048; 85025; 85610; 99282; A4216

== ENCOUNTER → 2019-12-09 09:55 | Outpatient (CLI) | payer MEDICARE, OTHER, SELFPAY ==
[2019-12-06 17:47] VITALS: BMI 46.6
--- NOTE | 2019-12-09 10:08 | VDLE_ITS ---
Reason For Study: Swelling Procedure LEFT Exam performed in department. GSV is normal. A preliminary report was called and/or faxed CFV is compressible, spontaneous, phasic, to Charlene. Pt seen in ED 12/06/2019. competent, and demonstrates normal augmentation. FV is compressible, spontaneous, phasic, competent and demonstrates normal augmentation. POP V is compressible, spontaneous, phasic, competent and demonstrates normal augmentation. T/P Trunk is compressible. PTV is compressible. LT PerV is compressible. Left CFV difficult to visualize due to shadowing from artery. Left calf veins difficult to visualize. Interpretation Summary There is no evidence of left lower extremity deep vein thrombosis. Left great saphenous vein appears patent and compressible segmentally. Left common femoral artery is calcific causing shadowing making imaging of the left common femoral vein difficult. Technical comment is made that visualization of the calf veins was difficult Ordering Physician: Patrick Preston Referring Physician: Chad Chang Performed By: Inga Raines RVT
== END ==
PROVIDERS: PCP Family Medicine; Visit Provider Emergency Medicine
DX: M79.89 Other specified soft tissue disorders (principal)
CPT/HCPCS: 93971

== ENCOUNTER → 2020-02-02 08:44 | Outpatient (CLI) | payer MEDICARE, OTHER, SELFPAY ==
[2020-01-09 08:49] VITALS: BMI 30.2
[2020-02-02 12:39] LABS: Absolute Lymphocyte Count 0.66 X10^3/uL (0.83-4.51); Absolute Neutrophil Count 3.1 X10^3/uL (2.0-7.7); Basophil# 0.01 X10^3/uL; Basophil% 0.2 % (0-1); Eosinophil# 0.03 X10^3/uL; Eosinophils% 0.7 % (0-5); Hematocrit 36.4 % (37-47); Hemoglobin 11.2 g/dL (12.0-15.0); Lymphocyte # 0.66 X10^3/ul (4.0); Lymphocyte % 15.8 % (19-41); Mean Corp Hgb Conc 30.8 g/dL (32-36); Mean Platelet Vol. 10.4 fl (6.2-12.0); Monocyte# 0.35 X10^3/uL; Monocyte% 8.4 % (0-10); NRBC Flagged by Analyzer 0 % (0-5); Neutrophil # 3.11 X10^3/uL (2.7-7.7); Neutrophil % 74.4 % (47-70); Platelet Count 252 K/mm3 (150-450); RBC Distribution Width CV 15.9 % (11.6-14.6); RBC Distribution Width SD 53.1 fl (35.1-43.9); White Blood Count 4.2 K/mm3 (4.4-11.0)
[2020-02-02 13:07] LABS: ALB/GLOB Ratio 1.1 RATIO (0.9-2.4); AST(SGOT) 14 U/L (15-37); Alanine Aminotransfer ALT/SGPT 15 U/L (13-56); Albumin, Serum 3.5 g/dL (3.2-5.0); Alkaline Phosphatase 95 U/L (45-117); Anion Gap 8 (5-15); BUN 12 mg/dL (7-18); BUN/Creat Ratio 20.7 RATIO (10-20); Calcium,Total 8.7 mg/dL (8.5-10.1); Chloride 96 mmol/L (98-107); Creatinine, Serum 0.58 mg/dL (0.55-1.02); EST Glomerular Filtration Rate 106 mL/min (>60); Est Glom Filt Rate - Afr Amer 128 mL/min (>60); Ferritin 55 ng/mL (8-252); Globulin 3.3 g/dL (2.2-4.2); Glucose 95 mg/dL (74-106); Iron 44 ug/dL (50-170); Protein, Total 6.8 g/dL (6.4-8.2); Sodium Level 134 mmol/L (136-145); T4 Free Direct 1.18 ng/dL (0.76-1.46); Thyroid Stim Hormone (TSH) 3.55 uIU/mL (0.358-3.74)
[2020-02-02 13:16] LABS: AST(SGOT) 14 U/L (15-37); Alanine Aminotransfer ALT/SGPT 14 U/L (13-56); Albumin, Serum 3.6 g/dL (3.2-5.0); Alkaline Phosphatase 99 U/L (45-117); Bilirubin, Direct 0.15 mg/dL (0.00-0.30); Cholesterol 111 mg/dL (200); Globulin 3.2 g/dL (2.2-4.2); High Density Lipoprotein 77 mg/dL; Protein, Total 6.8 g/dL (6.4-8.2); Triglycerides 45 mg/dL; Very Low Density Lipoprotein 9 mg/dL (5-40)
== END ==
PROVIDERS: Physician Assistant Medical; PCP Family Medicine; Visit Provider Family Medicine
DX: D64.9 Anemia, unspecified (principal); R53.83 Other fatigue; E11.9 Type 2 diabetes mellitus without complications; I48.91 Unspecified atrial fibrillation
CPT/HCPCS: 36415; 80053; 80061; 80076; 82728; 83540; 84439; 84443; 85025

== ENCOUNTER 2020-04-19 09:27 | Inpatient (IN) | payer MEDICARE, OTHER, SELFPAY ==
[2020-01-09 08:49] VITALS: BMI 30.2
[2020-04-19] VITALS (25 sets, daily range): BP systolic 68–144; BP diastolic 47–109; PULSE 62–158; RESP 14–28; TEMP 36.1–36.9; O2SAT 19–100; BMI 28.3; BMI 31.7
--- NOTE | 2020-04-19 09:45 | EKG12_ITS ---
Test Reason : Blood Pressure : / mmHG Vent. Rate : 147 BPM Atrial Rate : 076 BPM P-R Int : 000 ms QRS Dur : 088 ms QT Int : 314 ms P-R-T Axes : 000 116 055 degrees QTc Int : 491 ms Atrial fibrillation with rapid ventricular response Rightward axis Low voltage QRS (Limb Leads) Poor R wave progression Lateral infarct , age undetermined Abnormal ECG Confirmed by TOMEKA SHANNON, DEANN ([id number]), continuity editor [address] [place] ([id number]) on 04/22/2020 11:19:02 AM Referred By: BRII Confirmed By:DEANN ECKERT MD
--- NOTE | 2020-04-19 09:46 | RAD_ITS ---
STUDY: X-RAY - LEFT FOOT CLINICAL: Female, 84 years old. LEFT FOOT PAIN, SUPPOSED TO HAVE SURGERY TOMORROW. LEG IS RED AND SWOLLEN. PT UNABLE TO HOLD FOOT IN POSITIONS TECHNIQUE: 3 view(s) of the foot. COMPARISON: Comparison is made with prior study dated 10/14/2019. FINDINGS: Diffuse osteopenia. Calcaneal spur. Loss of the normal plantar arch. There is degenerative arthrosis of the metatarsophalangeal joint of the hallux . Normal tibial and fibular sesamoid bones. Normal interphalangeal joint of the great toe. Normal phalanges of the great toe. Normal second through fifth metatarsophalangeal joints. Normal interphalangeal joints and phalanges of the lesser toes. Stable deformity at the base of the proximal phalanx of the fifth toe. Diffuse soft tissue swelling and vascular calcification. RAD/Foot min 3 Views IMPRESSION: Diffuse soft tissue swelling as well as osteopenia. Electronically Signed: Nestor Noonan, at 11:04 EDT , Service support ,
[2020-04-19 10:05] LABS: Absolute Lymphocyte Count 0.26 X10^3/uL (0.83-4.51); Basophil# 0.02 X10^3/uL; Basophil% 0.1 % (0-1); Hematocrit 37.2 % (37-47); Hemoglobin 11.8 g/dL (12.0-15.0); Lymphocyte # 0.26 X10^3/ul (4.0); Lymphocyte % 1.4 % (19-41); Mean Corp Hgb Conc 31.7 g/dL (32-36); Mean Corpuscular Hgb 27.4 pg (27.0-32.0); Mean Corpuscular Volume 86.5 fL (81-99); Monocyte# 0.89 X10^3/uL; Monocyte% 4.9 % (0-10); NRBC Flagged by Analyzer 0 % (0-5); Neutrophil % 92.8 % (47-70); POSITIVE DIFFERENTIAL YES; POSITIVE MORPHOLOGY YES; Platelet Count 289 K/mm3 (150-450); RBC Distribution Width CV 18.6 % (11.6-14.6); White Blood Count 18.3 K/mm3 (4.4-11.0)
[2020-04-19 10:07] LABS: Differential Indicated SCAN CRITERIA MET
[2020-04-19 10:14] LABS: Erythrocyte Sedimentation Rate 1 mm/hr (0-30)
[2020-04-19 10:21] LABS: ALB/GLOB Ratio 1.2 RATIO (0.9-2.4); AST(SGOT) 69 U/L (15-37); Alanine Aminotransfer ALT/SGPT 64 U/L (13-56); Albumin, Serum 3.5 g/dL (3.2-5.0); Alkaline Phosphatase 134 U/L (45-117); Anion Gap 10 (5-15); BUN 56 mg/dL (7-18); BUN/Creat Ratio 35.9 RATIO (10-20); Calcium,Total 8.6 mg/dL (8.5-10.1); Chloride 99 mmol/L (98-107); Creatinine, Serum 1.56 mg/dL (0.55-1.02); EST Glomerular Filtration Rate 34 mL/min (>60); Est Glom Filt Rate - Afr Amer 41 mL/min (>60); Globulin 2.9 g/dL (2.2-4.2); Glucose 182 mg/dL (74-106); Potassium 5.1 mmol/L (3.5-5.1); Protein, Total 6.4 g/dL (6.4-8.2); Sodium Level 132 mmol/L (136-145)
--- NOTE | 2020-04-19 10:25 | RAD_ITS ---
STUDY: X-RAY CHEST REASON FOR EXAM: Female, 84 years old. LEFT FOOT PAIN, SUPPOSED TO HAVE SURGERY TOMORROW. LEG IS RED AND SWOLLEN. TECHNIQUE: AP and lateral views of the chest. COMPARISON: Comparison is made with prior study dated 11/10/2018. FINDINGS: EKG electrodes are seen. Stable elevation of the right hemidiaphragm. There is blunting of the right costophrenic angle. This is unchanged. Sternal cerclage wires are present from a prior sternotomy. Mitral valve replacement. Normal mediastinum and pito. Normal visualized pulmonary arteries. There is atherosclerotic calcification of the aortic arch with tortuosity. There is demineralization of the osseous structures. There is degenerative osteoarthritis of the bilateral shoulders. There is no demonstrated abnormality of the visualized soft tissue structures of the upper abdomen. RAD/Chest PA and Lateral IMPRESSION: Blunting of the right costophrenic angle. This is unchanged. Electronically Signed: Nestor Noonan, at 11:06 EDT , Service support ,
[2020-04-19 10:29] LABS: Acanthocytes 2+; Anisocytosis 1+; Hypochromasia RARE; Platelet Estimate ADEQUATE (ADEQ)
[2020-04-19 10:31] LABS: Lactic Acid 2.2 mmol/L (0.4-1.9)
--- NOTE | 2020-04-19 10:39 | ED.DCSUM_ITS ---
History of Present Illness Chief Complaint: Lower Extremity Injury Detail of Chief Complaint: Orthopnea, swelling, diabetic infected foot Informant: Patient, Family Onset: - - Please read HPI Context: Gradual Onset Timing: Continuous Quality: Redness and swelling left lower extremity, orthopnea Location: Left lower extremity and cardiac Current Severity: Mild Maximum Severity: Moderate Worsened by: Orthopnea past several days Relieved by: Upright position Associated Symptoms: Patient denies fever, chills night sweats. Please read HPI Narrative: Patient is an elderly 84-year-old woman who was brought to the emergency department by family member because of concern for infected foot. She is scheduled to have surgery by Dr. Escobar for Charcot foot. She has not followed up or been seen recently in the wound center. She denies fever, chills night sweats. She does report orthopnea and dyspnea on exertion. She also reports swelling of her lower extremities. She has not checked her blood sugar recently. She admits she has not taken a shower in greater than a week. She denies ocular, visual or auditory symptoms. She denies chest discomfort. She does report orthopnea. She denies PND. She also reports swelling of her lower extremities. She is uncertain whether she is had weight gain or weight loss. Family member informed me that she has not eaten in 2 days. She denies dysuria, frequency, urgency or hematuria. States her last bowel movement was this morning. Family members concerned because she is fallen recently and lives alone. She also states her speech has been abnormal for months. Patient does not check blood sugar on a regular basis. Prior similar symptoms: No Recent Illness/Hospitalization: No - Past Medical History (1) Anxiety and depression Status: Chronic (2) Biatrial enlargement Status: Chronic (3) CHF (congestive heart failure) Status: Chronic (4) Charcot foot due to diabetes mellitus Status: Chronic (5) Chronic renal failure, stage 3 (moderate) Status: Chronic Comment: Apixaban (6) Chronic venous insufficiency Status: Chronic (7) Dependent edema Status: Chronic (8) Hiatal hernia Status: Chronic (9) History of aortic valve replacement with bioprosthetic valve Status: Chronic Comment: 23 mm Saint to trifecta GT valve in June 2016 at [facility]; (10) Hypertension Status: Chronic (11) Mixed hyperlipidemia Status: Chronic (12) 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 Bilateral bunionectomy. Bilateral total knee replacement. The patient is a G0, P0 Ab0. Smoking Status: Former smoker - Family History Paternal Family History: Family History (Last Reviewed 01/09/20 @ 11:16 by SUSI. SUSI Ba) Father CAD (coronary artery disease) Mother CAD (coronary artery disease) Family History: Reports: Dementia, Heart Disease Maternal Family History: Family History (Last Reviewed 01/09/20 @ 11:16 by SUSI. SUSI Ba) Father CAD (coronary artery disease) Mother CAD (coronary artery disease) Family History: Reports: Heart Disease Review of Systems General: Reports: Malaise. Denies: Chills, Fever, Sweats, Weight loss Eyes: Denies: Visual changes - bilaterally, Blurred Vision - bilaterally ENT: Denies: Bilateral ear pain, Rhinorrhea, Sore throat Cardiovascular: Denies: Chest pain, Palpitations Respiratory: Reports: Dyspnea on exertion, Orthopnea. Denies: Dyspnea, Cough, Sputum, Paroxysmal nocturnal dyspnea Gastrointestinal: Denies: Abdominal pain, Nausea, Vomiting, Diarrhea, Melena, Hematochezia Genitourinary: Denies: Dysuria, Hematuria, Frequency Musculoskeletal: Reports: Myalgias, Arthralgias, Swelling, Extremity Pain. Denies: Neck pain, Back pain Skin: Reports: Rash, Wounds Neurological: Reports: Weakness. Denies: Headache Psych: Reports: Depression Endocrine: Denies: Polyuria, Polydipsia Hematologic: Denies: Easy bruising, Easy bleeding Allergy: Denies: Uticaria Physical Exam Vital Signs/Narrative: Vital Signs Temp Pulse Resp BP Pulse Ox 04/19/20 09:33 97.9 F 62 18 109/47 L 95 04/19/20 09:29 97.9 F Inital Vital Signs reviewed: Yes General: Well nourished, Well developed, No Acute Distress Head: Normocephalic, Atraumatic. Negative for: Trauma, Tenderness Eyes: Perrl, EOMI. Negative for: Pale conjunctiva, Scleral icterus ENT: No rhinorrhea, TM's clear, Dry mucous membranes, - - He has midline. There is no cervical lymphadenopathy. Neck: Supple, Nontender, No lymphadenopathy, No JVD Cardiovascular: Regular rate, Regular rhythm, No murmurs, Normal S1, Normal S2 Respiratory: No distress, Chest nontender, Rales - Noted bilaterally greater on the right., Decreased Air Movement. Negative for: CTA bilaterally Abdomen: Soft, Nontender, Nondistended, Normal bowel sounds Back: Nontender, Normal Inspection Extremities: Nontender, Edema, - - There is an open wound arch of left foot. Patient has deformity of foot consistent with Charcot foot. There is erythema of the medial and dorsal surface of the left foot and lateral left ankle. There is no lymphangitis. There is no popliteal or femoral lymphadenopathy. Skin: Normal color, Cyanosis - Cyanosis digits right and left hand. There is delay in capillary refill as well. She does not have evidence of central cy anosis., Rash Neurological: Alert, Oriented x3, Cranial nerves II-XII grossly intact. Negative for: Normal Gait Psychological: Depressed Diagnostic/Tx/Re-eval Chest X-Ray - ED: Read by ED Physician, - - Injuries consistent with Charcot foot, calcification of vasculature and soft tissue swelling. There is a defect noted medial aspect consistent with location of wound. 2 view chest x-ray is suboptimal. There is elevation of the right hemidiaphragm. Sternal wires are noted. There is slight rotation. Inspiratory volume is limited. There is probably atelectasis. Unable to determine if there is an effusion or infiltrate.Three-view x-ray of the foot reveals Impressions Foot X-Ray 04/19/20 09:46 IMPRESSION: Diffuse soft tissue swelling as well as osteopenia. Electronically Signed: Nestor Noonan, at 11:04 EDT , Service support , Chest X-Ray 04/19/20 10:25 IMPRESSION: Blunting of the right costophrenic angle. This is unchanged. Electronically Signed: Nestor Noonan, at 11:06 EDT , Service support , 04/19/20 09:46 Foot min 3 Views [RAD] Stat 04/19/20 10:25 Chest PA and Lateral [RAD] Stat Laboratory Results 04/19/20 04/19/20 04/19/20 09:55 09:55 09:55 WBC 18.3 H RBC 4.30 Hgb 11.8 L Hct 37.2 MCV 86.5 MCH 27.4 MCHC 31.7 L RDW Std Deviation 56.0 H RDW Coeff of Blanca 18.6 H Plt Count 289 MPV 10.0 Immature Gran % (Auto) 0.800 Neut % (Auto) 92.8 H Lymph % (Auto) 1.4 L Nobles % (Auto) 4.9 Eos % (Auto) 0.0 Baso % (Auto) 0.1 Absolute Neuts (auto) 17.0 H Absolute Lymphs (auto) 0.26 L Nucleated RBC % 0 Platelet Estimate ADEQUATE Hypochromasia RARE Anisocytosis 1+ Acanthocytes (Spur) 2+ ESR 1 PT INR APTT Sodium 132 L Potassium 5.1 Chloride 99 Carbon Dioxide 23.0 Anion Gap 10 BUN 56 H Creatinine 1.56 H Estim Creat Clear Calc 23.00 Est GFR (MDRD) Af Amer 41 L Est GFR (MDRD) Non-Af 34 L BUN/Creatinine Ratio 35.9 H Glucose 182 H Lactic Acid 2.2 H* Calcium 8.6 Total Bilirubin 0.70 AST 69 H ALT 64 H Alkaline Phosphatase 134 H Troponin I C-React Prot Ext Range 37.20 H B-Natriuretic Peptide Total Protein 6.4 Albumin 3.5 Globulin 2.9 Albumin/Globulin Ratio 1.2 04/19/20 04/19/20 04/19/20 09:55 09:55 10:44 WBC RBC Hgb Hct MCV MCH MCHC RDW Std Deviation RDW Coeff of Blanca Plt Count MPV Immature Gran % (Auto) Neut % (Auto) Lymph % (Auto) Nobles % (Auto) Eos % (Auto) Baso % (Auto) Absolute Neuts (auto) Absolute Lymphs (auto) Nucleated RBC % Platelet Estimate Hypochromasia Anisocytosis Acanthocytes (Spur) ESR PT 24.4 H INR 2.2 APTT 40.3 H Sodium Potassium Chloride Carbon Dioxide Anion Gap BUN Creatinine Estim Creat Clear Calc Est GFR (MDRD) Af Amer Est GFR (MDRD) Non-Af BUN/Creatinine Ratio Glucose Lactic Acid Calcium Total Bilirubin AST ALT Alkaline Phosphatase Troponin I 0.034 C-React Prot Ext Range B-Natriuretic Peptide 423.4 H Total Protein Albumin Globulin Albumin/Globulin Ratio - EKG Initial EKG Interpretation: Atrial Fibrillation - Fibrillation with a ventricular rate of 147. QRS duration 88 ms. QT duration 314 ms. There is nonspecific changes that are minimal. There is decreased anterior force. - Medical Decision Making Patient with diabetic foot infection. Need to evaluate for osteomyelitis. Clinically patient has heart failure. I was informed prior to the EKG G she developed a rapid rate. Monitor reveals now atrial fibrillation with RVR. Will obtain troponin, BNP to evaluate for cardiac ischemia. Patient denied taking anticoagulant. Review of prior records indicates she is on anticoagulant and Lovenox was canceled. Keep Cardizem for rate control. Patient does have an x-ray of the foot. Since her white count is elevated 18.3 thousand lactate was elevated blood cultures were obtained prior to administration of antibiotics. Patient's atrial fibrillation with RVR was treated with Cardizem for rate control since she has history of paroxysmal atrial fibrillation. She is on anti-coagulant. Case management was consulted because of concern for her ability to care for self at home. Will contact education administrator, Dr. Escobar since she is scheduled for surgery tomorrow. Patient only has 1 sirs criteria. The lactic acidosis may be due to poor perfusion, diabetes or infection. Patient's repeat blood pressure is 80 systolic with a mean arterial 71. 500 cc fluid bolus was ordered since there is concern patient has mild heart failure. Patient heart rate did improve after 10 to Cardizem. It was 110. Is presently 140. Since patient is on anticoagulant and hypotensive we will discuss emergent cardioversion. Since patient's heart rate is greater than 90 and she does have a white count she does have 2 sirs criteria therefore she has severe sepsis. Since the hypotension may be due to infection will administer fluid bolus. Plan is admission ICU - Critical Care Time Critical care time (excluding procedures): 30-74 minutes, Discussing w/Patient &/or Family/Head Shipper, Discussing w/Consultants, Arranging Admission or Transfer - Critical care time 34 minutes which included obtaining history, physical exam, review of prior records and medications, discussion with family m ember, interpretation of laboratory results and initiation of treatment. Discussion with hospitalist for admission to the hospital. ED Disposition - Plan for ED Patient: Disposition: Acute Care Hospital [facility] Diagnosis: Diabetic infection of left foot, CHF (congestive heart failure), Paroxysmal atrial fibrillation with RVR, Chronic anticoagulation, Dependent edema, Lactic acidosis, Severe sepsis, Elevated serum creatinine, Hypotension Referrals: Chad Chang MD [Primary Care Provider] -
[2020-04-19] MEDS: dilTIAZem 25 MG/5 ML Vial 20 MG IV BOLUS (10:45)
--- NOTE | 2020-04-19 10:52 | ED.RN ---
pt does not have mediation list. attempted to call dr renteria office
[2020-04-19 10:59] LABS: BNP,B-Type NATRIURETIC PEPTIDE 423.4 pg/mL (0-100)
[2020-04-19 11:04] LABS: International Normalized Ratio 2.2; Prothrombin Time (Protime)PT. 24.4 SECONDS (11.7-14.9)
[2020-04-19 11:05] LABS: Partial Thromboplast Time 40.3 Seconds (24.1-36.2)
--- NOTE | 2020-04-19 11:30 | ED.RN ---
pt bp decreased. dr lynn aware. verbal order for bolus'
[2020-04-19] MEDS: 0.9% Normal Saline 1,000 ML 1000 ML IV ×2 (11:45→13:45)
--- NOTE | 2020-04-19 11:51 | ED.RN ---
bp coming back up. bolus half infused. atb infusing. hr 111
[2020-04-19 14:00] LABS: Reflex Lactate? Y
--- NOTE | 2020-04-19 15:11 | NURSING ---
Dr Reyes notified patient's SBP running in 70's-80's now that fluid bolus' have completed. Patient is asymptomatic, denies pain, nausea, dizziness. No new orders at this time, instructed to continue monitoring patient as long as patient's MAP remains greater than 65 and she is asymptomatic.
[2020-04-19 15:18] LABS: Lactic Acid 2.2 mmol/L (0.4-1.9)
--- NOTE | 2020-04-19 15:22 | PCM.RX.CS ---
Consult Pharmacy has been consulted to manage selected antiobiotic: Vancomycin Type of Consult: New start Labs: Sodium 132 mmol/L (136-145) L 04/19/20 09:55 Potassium 5.1 mmol/L (3.5-5.1) 04/19/20 09:55 Chloride 99 mmol/L (98-107) 04/19/20 09:55 Carbon Dioxide 23.0 mmol/L (21.0-32.0) 04/19/20 09:55 Anion Gap 10 (5-15) 04/19/20 09:55 BUN 56 mg/dL (7-18) H 04/19/20 09:55 Creatinine 1.56 mg/dL (0.55-1.02) H 04/19/20 09:55 Est GFR (MDRD) Af Amer 41 mL/min (>60) L 04/19/20 09:55 Est GFR (MDRD) Non-Af 34 mL/min (>60) L 04/19/20 09:55 BUN/Creatinine Ratio 35.9 RATIO (10-20) H 04/19/20 09:55 Glucose 182 mg/dL (74-106) H 04/19/20 09:55 Goal Trough: 15-20 mcg/mL Pharmacy Plan for Drug Dosing: Pharmacy Service will continue to monitor and adjust dosing as required. NEW START IV VANCOMYCIN Consulting Physician: Amy Indication: SSTI Goal Trough: 15-20 SrCr: 1.56 CrCl: 27 mL/min (using AdjBW = 61.5kg) Comments: Initial dose of 1750mg IV x1 given in the ED 04/19 @1245. Vancomcyin Dose: 750mg IV Q24hr to start 24hr from initial dose 04/20/20 @1300. Pending Level: 04/21/20 @1230 (prior to 3rd total dose per protocol)
[2020-04-19] MEDS: 0.9% Normal Saline 1,000 ML 100 ML IV (15:39)
--- NOTE | 2020-04-19 16:16 | PCM.HP.STD ---
History of Present Illness Date of Admission: 04/19/20 Chief Complaint: Infected diabetic foot ulcer with cellulitis The patient is a 84 year old F with PMH as below presents from home by family member because of an infected foot. She is scheduled to have surgery with Dr. Escobar tomorrow for Charcot foot. She is supposed to follow-up with wound care as an outpatient however she has not. She has not had any fevers or chills, and she denies shortness of breath, lightheadedness, or dizziness. She no chest pain. In the ER initially she had a normal heart rate and then she went into A. fib but denies any chest pain or shortness of breath with the paroxysmal A. fib. She has had a Charcot foot for quite a number of years and has been having problems with it on and off for several years. She says that she first noticed the worsening redness about 2 days ago and has says it is been steadily getting worse and she has been losing her appetite. Past Medical History Past Medical History (Chronic Problems): Chronic Problems (Last Reviewed 01/09/20 @ 11:16 by PA. SUSI Ba) Leg swelling (Chronic) Leg edema (Chronic) Rheumatoid arthritis (Chronic) Debility (Chronic) Overweight (BMI 25.0-29.9) (Chronic) CHF (congestive heart failure) (Chronic) Hypertension (Chronic) Hiatal hernia (Chronic) Dependent edema (Chronic) Chronic venous insufficiency (Chronic) Restless legs (Chronic) Peripheral arterial disease (Chronic) Charcot foot due to diabetes mellitus (Chronic) Mixed hyperlipidemia (Chronic) Moderate pulmonary arterial systolic hypertension (Chronic) LVH (left ventricular hypertrophy) (Chronic) Biatrial enlargement (Chronic) Chronic anticoagulation (Chronic) Chronic renal failure, stage 3 (moderate) (Chronic) Apixaban Overactive bladder (Chronic) Tinea unguium (Chronic) Hallux valgus (acquired), right foot (Chronic) Nonrheumatic mitral (valve) insufficiency (Chronic) Non-rheumatic tricuspid valve insufficiency (Chronic) Anxiety and depression (Chronic) Venous insufficiency of both lower extremities (Chronic) Type 2 diabetes mellitus (Chronic) Uncontrolled hemoglobin A1c on 08/18/2018 is 10.4 Paroxysmal atrial fibrillation (Chronic) History of aortic valve replacement with bioprosthetic valve (Chronic ~06/20/16) 23 mm Saint to trifecta GT valve in June 2016 at [facility]; Pulmonary hypertension (Chronic) Medical History: Medical History (Last Reviewed 01/09/20 @ 11:16 by PA. SUSI Ba) Mixed hyperlipidemia (Chronic) E78.2 Moderate pulmonary arterial systolic hypertension (Chronic) I27.21 LVH (left ventricular hypertrophy) (Chronic) I51.7 Biatrial enlargement (Chronic) I51.7 Chronic anticoagulation (Chronic) Z79.01 Chronic renal failure, stage 3 (moderate) (Chronic) N18.3 Apixaban Bronchitis (Acute) J40 Secondary to RSV B Nonrheumatic mitral (valve) insufficiency (Chronic) I34.0 Non-rheumatic tricuspid valve insufficiency (Chronic) I36.1 Anxiety and depression (Chronic) F41.8 Venous insufficiency of both lower extremities (Chronic) I87.2 Ulcer of right lower extremity with fat layer exposed (Resolved) L97.912 Venous ulcers of both lower extremities (Resolved) I87.2, L97.919, L97.929 Type 2 diabetes mellitus (Chronic) E11.9 Uncontrolled hemoglobin A1c on 08/18/2018 is 10.4 Paroxysmal atrial fibrillation (Chronic) I48.0 Pulmonary hypertension (Chronic) I27.2 GERD (gastroesophageal reflux disease) K21.9 Nonrheumatic aortic (valve) stenosis I35.0 Hyponatremia (Resolved) E87.1 Abnormal pulmonary function (Inactive) R94.2 Aortic stenosis (Inactive) I35.0 DM2 (diabetes mellitus, type 2) (Inactive) E11.9 Diabetes mellitus (Inactive) E11.9 Mitral valve disorder (Inactive) I05.9 Allergies No Known Allergies Allergy (Verified 04/19/20 09:28) Home Medications: Ambulatory Orders Medication Instructions Recorded metformin 1,000 mg tablet 1,000 mg PO BIDCM 0 Days 03/15/18 Atorvastatin Calcium 20 mg PO DAILY 07/08/18 Lisinopril [Zestril] 5 mg PO DAILY 07/08/18 Tolterodine Tartrate [Tolterodine 4 mg PO DAILY 07/08/18 Tartrate ER] Acetaminophen [Tylenol] 1,000 mg PO Q6H PRN PRN tab 08/06/18 Glimepiride [Amaryl] 4 mg PO BIDCM #60 tab 08/06/18 Iron Polysaccharide Complex 150 mg PO DAILYCM #30 cap 08/06/18 [Ferrex 150] Linagliptin [Tradjenta] 5 mg PO DAILY #30 tab 08/06/18 Pioglitazone [Actos] 30 mg PO DAILY@0800 #30 tab 08/06/18 apixaban 5 mg tablet 5 mg PO BID #180 tab 11/12/18 furosemide 20 mg tablet 20 mg PO .COMPLEX 01/09/20 potassium chloride 20 mEq 20 meq PO .COMPLEX 01/09/20 tablet,extended release Surgical History: Surgical History (Last Reviewed 01/09/20 @ 11:16 by SUSI Castro) History of aortic valve replacement with bioprosthetic valve (Chronic) Onset Date: ~06/20/16 Z95.4 23 mm Saint to trifecta GT valve in June 2016 at [facility]; History of knee replacement procedure of left knee Z96.652 History of knee replacement procedure of right knee Z96.651 H/O aortic valve replacement (Inactive) Onset Date: ~06/20/16 Z95.2 Surgical History: - - Aortic valve replacement with bioprosthetic valve. Bilateral bunionectomy. Bilateral total knee replacement. The patient is a G0, P0 Ab0. 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 Smoking Status: Never smoker Alcohol: None Drugs: None - *Family History Paternal Family History: Family History (Last Reviewed 01/09/20 @ 11:16 by SUSI Castro) Father CAD (coronary artery disease) Mother CAD (coronary artery disease) History Items: Dementia, Heart Disease Maternal Family History: Family History (Last Reviewed 01/09/20 @ 11:16 by SUSI Castro) Father CAD (coronary artery disease) Mother CAD (coronary artery disease) History Items: Heart Disease Review of Systems Constitutional: Denies: Chills, Fever, Weight Change HEENT: Denies: Head Aches, Sinus Congestion, Sinus Drainage Cardiovascular: Denies: Chest Pain, Edema, Light Headedness, Palpitations Respiratory: Denies: Cough, Shortness of breath at rest, Sputum production Gastrointestinal: Denies: Abdominal Pain, Nausea, Vomiting Genitourinary: Denies: Dysuria Musculoskeletal: Denies: Joint Pain, Joint Tenderness Skin: Reports: Wounds - Diabetic foot ulcer left medial foot. Denies: Rash Neurological: Denies: Numbness, Tingling, Focal weakness Psychiatric: Denies: Anxiety, Depression Hematologic/ Lymphatic: Denies: Easy Bruising, Easy Bleeding VTE Information - Inpt Only VTE Present on Admission: No Patient Problems: Active and Suspected Problems (Last Reviewed 01/09/20 @ 11:16 by PA. SUSI Ba) Diabetic infection of left foot (Acute) Paroxysmal atrial fibrillation with RVR (Acute) Lactic acidosis (Acute) Severe sepsis (Acute) Elevated serum creatinine (Acute) Hypotension (Acute) - Physical Exam Vitals/I&O's: Vital Signs Temp Pulse Resp BP Pulse Ox 98.1 F 145 H 14 86/57 L 97 04/19/20 13:40 04/19/20 16:00 04/19/20 16:00 04/19/20 16:00 04/19/20 16:00 Oxygen Delivery Method Room Air Weight: 173 lb 8.061 oz Body Mass Index (BMI) 31.7 Finger Stick Blood Glucose 394 Intake and Output for Last 24 Hours 04/17/20 04/18/20 04/19/20 23:59 23:59 23:59 Intake Total 3135 / 3135 Balance 3135 / 3135 General: Alert, Oriented x3, Cooperative, No apparent distress HEENT: Atraumatic, PERRLA, EOMI, Normocephalic Oral: Moist Mucosa Neck: Supple, No JVD Lungs: Clear to auscultation, Normal air movement, No rhonchi, No wheeze, No rales, Diminished Cardiovascular: Regular Rhythm, Normal S1, Normal S2, No murmurs, Tachycardic Abdomen: Soft, Non Tender, Non-Distended, No Hepato-splenomegaly Extremities: No edema, Capillary Refill Less than 3 Seconds Skin: - - Cellulitis extending up to the mid of her left calf, there is a diabetic ulcer approximately 2 cm in diameter on her left medial foot no drainagew Neurological: Neuro grossly intact, Sensory exam intact to light touch and pain Psych/Mental Status: Normal Affect, Appropriate Laboratory Results 04/19/20 09:55: WBC 18.3 H, RBC 4.30, Hgb 11.8 L, Hct 37.2, MCV 86.5, MCH 27.4, MCHC 31.7 L, RDW Std Deviation 56.0 H, RDW Coeff of Blanca 18.6 H, Plt Count 289, MPV 10.0, Immature Gran % (Auto) 0.800, Neut % (Auto) 92.8 H, Lymph % (Auto) 1.4 L, [place] % (Auto) 4.9, Eos % (Auto) 0.0, Baso % (Auto) 0.1, Absolute Neuts (auto) 17.0 H, Absolute Lymphs (auto) 0.26 L, Nucleated RBC % 0, Platelet Estimate ADEQUATE, Hypochromasia RARE, Anisocytosis 1+, Acanthocytes (Spur) 2+, ESR 1 04/19/20 09:55: Sodium 132 L, Potassium 5.1, Chloride 99, Carbon Dioxide 23.0, Anion Gap 10, BUN 56 H, Creatinine 1.56 H, Estim Creat Clear Calc 23.00, Est GFR (MDRD) Af Amer 41 L, Est GFR (MDRD) Non-Af 34 L, BUN/Creatinine Ratio 35.9 H, Glucose 182 H, Calcium 8.6, Total Bilirubin 0.70, AST 69 H, ALT 64 H, Alkaline Phosphatase 134 H, C-React Prot Ext Range 37.20 H, Total Protein 6.4, Albumin 3.5, Globulin 2.9, Albumin/Globulin Ratio 1.2 04/19/20 09:55: Lactic Acid 2.2 H* 04/19/20 09:55: B-Natriuretic Peptide 423.4 H 04/19/20 09:55: Troponin I 0.034 04/19/20 10:44: PT 24.4 H, INR 2.2, APTT 40.3 H 04/19/20 14:25: Lactic Acid 2.2 H* Current Medications Acetaminophen (Tylenol) 650 mg PO Q6H PRN PRN PRN Reason: Pain Score 1-10/Temp > 100.7 F Sodium Chloride () 1,000 mls @ 100 mls/hr IV .Q10H DONNIE Last Admin: 04/19/20 15:39 Dose: 100 mls/hr Documented by: Piperacillin Sod/Tazobactam (Sod 3.375 gm/ Sodium Chloride) 50 mls @ 12.5 mls/hr IV Q8 [facility] Vancomycin IV Pharmacy to Dose (1 ea/ Sodium Chloride) 500 mls @ 250 mls/hr IV PRN PRN; Protocol PRN Reason: Rx to Dose Vancomycin HCl 750 mg/ Sodium (Chloride) 265 mls @ 250 mls/hr IV Q24H DONNIE Sodium Chloride () 250 mls @ 15 mls/hr IV .[id number] PRN PRN Reason: Saline Flush Sodium Chloride () 250 mls @ 15 mls/hr IV .[id number] PRN PRN Reason: Additional IVPB Infusion Ondansetron HCl (Zofran) 4 mg IV Q8H PRN PRN PRN Reason: NAUSEA/VOMITING Sodium Chloride () 10 - 40 ml IV UD PRN PRN Reason: SALINE FLUSH Assessment/Plan All Active Problems (Last Reviewed 01/09/20 @ 11:16 by PA. SUSI Ba) Diabetic infection of left foot (Acute) Paroxysmal atrial fibrillation with RVR (Acute) Lactic acidosis (Acute) Severe sepsis (Acute) Elevated serum creatinine (Acute) Hypotension (Acute) Bronchitis (Acute) Ulcer of right lower extremity with fat layer exposed (Resolved) Ulcer of left lower extremity with fat layer exposed (Resolved) Chronic ulcer of left foot with fat layer exposed (Resolved) Chronic ulcer of right great toe with fat layer exposed (Resolved) Ulcer of left lower extremity with fat layer exposed (Resolved) Ulcer of right lower extremity with fat layer exposed (Resolved) Venous ulcers of both lower extremities (Resolved) Hyponatremia (Resolved) 1. Severe sepsis secondary to diabetic foot ulcer with cellulitis/Charcot foot -She is supposed to have surgery tomorrow with podiatry because of her Charcot foot, will consult podiatry -She has not showered over a week and has not been following with the wound care center -Leukocytosis of 18.3, and tachycardia likely related to her A. fib -Continue with vancomycin and Zosyn given the polymicrobial nature of diabetic ulcers -Lactate greater than 2.2 consistent with severe sepsis therefore she was placed in the ICU with an fabricator artificial breast consult -We will place her on IV fluids at 100 because her BNP was elevated 423 though this could be secondary to her renal dysfunction -She had an echo in 2019 with an EF of 65% and concentric left ventricular hypertrophy with pulmonary hypertension and of our RVSP of 57 mmHg and diastolic dysfunction 2. Paroxysmal A. fib/pulmonary hypertension/chronic diastolic CHF/HTN/HLD -We will hold her Eliquis secondary to possible surgical intervention -We will hold her Lasix given her severe sepsis -We will hold her lisinopril given her renal dysfunction and her soft blood pressures -Can continue with Lipitor once dosage is confirmed -Blood pressure is in the low 80s however map is in the 70s -Because she is in A. fib, will start her on a low-dose Cardizem drip to see if correction of her heart rate will improve her blood pressure if her blood pressure is too sensitive for the Cardizem then could transition to PRN IV metoprolol -INR is 2.2 secondary to the Eliquis 3. DM 2 with diabetic foot ulcer and Charcot foot -We will hold her oral hypoglycemics and transition her to a sliding scale insulin -Continue with Lantus 10 units at night -Accu-Cheks AC at bedtime DVT: Therapeutic INR Inpatient E&M: 23813 Init Hosp L3
[2020-04-19] MEDS: Amiodarone 360 MG in Dextrose 5% Viaflo Bag 192.8 ML 33.3 MG CONT INF (20:30)
[2020-04-19] MEDS: Insulin Lispro 100 UNIT/ML INSULN.PEN SC (22:29)
[2020-04-19 22:56] LABS: Bedside Glucose 275 mg/dL (70-110)
[2020-04-20] VITALS (26 sets, daily range): BP systolic 73–147; BP diastolic 31–97; PULSE 90–124; RESP 15–25; TEMP 36.3–36.8; O2SAT 95–100
[2020-04-20] MEDS: Amiodarone 360 MG in Dextrose 5% Viaflo Bag 192.8 ML 16.7 MG CONT INF ×2 (02:35→13:49)
[2020-04-20] MEDS: 0.9% Normal Saline 1,000 ML 100 ML IV ×2 (02:45→14:19)
[2020-04-20 05:12] LABS: Absolute Neutrophil Count 9.2 X10^3/uL (2.0-7.7); Basophil# 0.01 X10^3/uL; Basophil% 0.1 % (0-1); Hematocrit 33.2 % (37-47); Hemoglobin 10.4 g/dL (12.0-15.0); Lymphocyte % 6.6 % (19-41); Mean Corp Hgb Conc 31.3 g/dL (32-36); Mean Corpuscular Hgb 27.2 pg (27.0-32.0); Mean Corpuscular Volume 86.7 fL (81-99); Mean Platelet Vol. 9.7 fl (6.2-12.0); Monocyte# 0.64 X10^3/uL; NRBC Flagged by Analyzer 0 % (0-5); Neutrophil # 9.18 X10^3/uL (2.7-7.7); Neutrophil % 86.5 % (47-70); Platelet Count 282 K/mm3 (150-450); RBC Distribution Width CV 18.7 % (11.6-14.6); RBC Distribution Width SD 57.3 fl (35.1-43.9); Red Blood Count 3.83 M/mm3 (4.2-5.4); White Blood Count 10.6 K/mm3 (4.4-11.0)
[2020-04-20 05:22] LABS: Anion Gap 9 (5-15); BUN 55 mg/dL (7-18); BUN/Creat Ratio 33.7 RATIO (10-20); Calcium,Total 7.5 mg/dL (8.5-10.1); Chloride 102 mmol/L (98-107); Creatinine, Serum 1.63 mg/dL (0.55-1.02); EST Glomerular Filtration Rate 32 mL/min (>60); Est Glom Filt Rate - Afr Amer 39 mL/min (>60); Estimated Creatinine Clearance 21.05 ml/min; Glucose 245 mg/dL (74-106); Potassium 4.6 mmol/L (3.5-5.1); Sodium Level 134 mmol/L (136-145)
[2020-04-20] MEDS: 0.9% Saline Lock 10 ML Syringe IV (05:36)
--- NOTE | 2020-04-20 08:05 | PCM.CON.CC ---
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 (14) LVH (left ventricular hypertrophy) Status: Chronic (15) Chronic anticoagulation Status: Chronic (16) Chronic renal failure, stage 3 (moderate) Status: Chronic Comment: Apixaban (17) Hallux valgus (acquired), right foot Status: Chronic (18) Peripheral vascular disease Status: Suspected (19) Chronic ulcer of right great toe with fat layer exposed Status: Resolved (20) Anxiety and depression Status: Chronic (21) Type 2 diabetes mellitus Status: Chronic Comment: Uncontrolled hemoglobin A1c on 08/18/2018 is 10.4 (22) History of aortic valve replacement with bioprosthetic valve Status: Chronic Comment: 23 mm Saint to trifecta GT valve in June 2016 at [facility]; Reason for Consult Date of Consultation: 04/20/20 Reason for Consultation: Severe sepsis History of Present Illness: The patient is an 84 year old F, with past medical history listed below, who presented was [facility] on 04/19/2020 secondary to family members concern for infected foot. Patient was reportedly supposed to have surgery by Dr. Escobar for Charcot foot, but did not followed up or been seen recently in the wound center. Patient had denied any fever, chills or night sweats. Patient did have some orthopnea and dyspnea on exertion along with swelling of bilateral lower extremities. Family members had reported the patient had not eaten in 2 days, but this could not be confirmed. Patient denied any urinary type symptoms. Patient reportedly lives alone and there was some concern from family for her safety. In the ER, patient was afebrile with a blood pressure of 109/47 and noted to have edema with an open wound of the left foot and a deformity consistent with Charcot foot. Patient had erythema of the medial and dorsal surface of the left foot and peripheral cyanosis. X-rays were relatively unremarkable except for osteopenia and soft tissue swelling. Patient did have a leukocytosis at 18.3, elevated BUN of 56 and creatinine of 1.56 with a lactate of 2.2. Glucose was slightly elevated and his CRP was 37.2. INR was elevated at 2.2 and BNP was elevated at 423. Later in the hospital/ER course, patient became hypotensive with a systolic blood pressure in the 80s. Patient was given a 500 cc bolus. Patient was also noted to be significantly tachycardic at 140 bpm. Patient was given some Cardizem with continued hypotension. After arrival to the intensive care unit, the patient became progressively hypotensive and tachycardic. Patient was started on a Cardizem drip with hypotension. I was called overnight and patient was placed on an amiodarone drip. Patient responded better to the amiodarone and Cardizem was discontinued. Patient is not reporting significant pain of the lower extremity and overall feels subjectively improved compared to presentation. Patient states that she follows with Dr. Rose at baseline. Patient does admit to not following with wound center closely. Patient does admit that she has been losing her appetite slowly, but does not know of any possible etiologies. Patient states she noticed redness of her lower extremity approximately 2 days prior to presentation. Review of systems otherwise negative from a constitutional, HEENT, respiratory, cardiovascular, GI, genitourinary, musculoskeletal, skin, neurologic, psychiatric and hematologic system unless stated above. Past Medical History Past Medical History (Chronic Problems): Chronic Problems (Last Reviewed 01/09/20 @ 11:16 by SUSI. SUSI Ba) Leg swelling (Chronic) Leg edema (Chronic) Rheumatoid arthritis (Chronic) Debility (Chronic) Overweight (BMI 25.0-29.9) (Chronic) CHF (congestive heart failure) (Chronic) Hypertension (Chronic) Hiatal hernia (Chronic) Dependent edema (Chronic) Chronic venous insufficiency (Chronic) Restless legs (Chronic) Peripheral arterial disease (Chronic) Charcot foot due to diabetes mellitus (Chronic) Mixed hyperlipidemia (Chronic) Moderate pulmonary arterial systolic hypertension (Chronic) LVH (left ventricular hypertrophy) (Chronic) Biatrial enlargement (Chronic) Chronic anticoagulation (Chronic) Chronic renal failure, stage 3 (moderate) (Chronic) Apixaban Overactive bladder (Chronic) Tinea unguium (Chronic) Hallux valgus (acquired), right foot (Chronic) Nonrheumatic mitral (valve) insufficiency (Chronic) Non-rheumatic tricuspid valve insufficiency (Chronic) Anxiety and depression (Chronic) Venous insufficiency of both lower extremities (Chronic) Type 2 diabetes mellitus (Chronic) Uncontrolled hemoglobin A1c on 08/18/2018 is 10.4 Paroxysmal atrial fibrillation (Chronic) History of aortic valve replacement with bioprosthetic valve (Chronic ~06/20/16) 23 mm Saint to trifecta GT valve in June 2016 at [facility]; Pulmonary hypertension (Chronic) Medical History: Medical History (Last Reviewed 01/09/20 @ 11:16 by PA. SUSI Ba) Mixed hyperlipidemia (Chronic) E78.2 Moderate pulmonary arterial systolic hypertension (Chronic) I27.21 LVH (left ventricular hypertrophy) (Chronic) I51.7 Biatrial enlargement (Chronic) I51.7 Chronic anticoagulation (Chronic) Z79.01 Chronic renal failure, stage 3 (moderate) (Chronic) N18.3 Apixaban Bronchitis (Acute) J40 Secondary to RSV B Nonrheumatic mitral (valve) insufficiency (Chronic) I34.0 Non-rheumatic tricuspid valve insufficiency (Chronic) I36.1 Anxiety and depression (Chronic) F41.8 Venous insufficiency of both lower extremities (Chronic) I87.2 Ulcer of right lower extremity with fat layer exposed (Resolved) L97.912 Venous ulcers of both lower extremities (Resolved) I87.2, L97.919, L97.929 Type 2 diabetes mellitus (Chronic) E11.9 Uncontrolled hemoglobin A1c on 08/18/2018 is 10.4 Paroxysmal atrial fibrillation (Chronic) I48.0 Pulmonary hypertension (Chronic) I27.2 GERD (gastroesophageal reflux disease) K21.9 Nonrheumatic aortic (valve) stenosis I35.0 Hyponatremia (Resolved) E87.1 Abnormal pulmonary function (Inactive) R94.2 Aortic stenosis (Inactive) I35.0 DM2 (diabetes mellitus, type 2) (Inactive) E11.9 Diabetes mellitus (Inactive) E11.9 Mitral valve disorder (Inactive) I05.9 Allergies No Known Allergies Allergy (Verified 04/19/20 09:28) Home Medications: Ambulatory Orders Medication Instructions Recorded metformin 1,000 mg tablet 1,000 mg PO BIDCM 0 Days 03/15/18 Atorvastatin Calcium 20 mg PO DAILY 07/08/18 Lisinopril [Zestril] 5 mg PO DAILY 07/08/18 Tolterodine Tartrate [Tolterodine 4 mg PO DAILY 07/08/18 Tartrate ER] Acetaminophen [Tylenol] 1,000 mg PO Q6H PRN PRN tab 08/06/18 Glimepiride [Amaryl] 4 mg PO BIDCM #60 tab 08/06/18 Iron Polysaccharide Complex 150 mg PO DAILYCM #30 cap 08/06/18 [Ferrex 150] Linagliptin [Tradjenta] 5 mg PO DAILY #30 tab 08/06/18 Pioglitazone [Actos] 30 mg PO DAILY@0800 #30 tab 08/06/18 apixaban 5 mg tablet 5 mg PO BID #180 tab 11/12/18 furosemide 20 mg tablet 20 mg PO .COMPLEX 01/09/20 potassium chloride 20 mEq 20 meq PO .COMPLEX 01/09/20 tablet,extended release Surgical History: Surgical History (Last Reviewed 01/09/20 @ 11:16 by SUSI Castro) History of aortic valve replacement with bioprosthetic valve (Chronic) Onset Date: ~06/20/16 Z95.4 23 mm Saint to trifecta GT valve in June 2016 at [facility]; History of knee replacement procedure of left knee Z96.652 History of knee replacement procedure of right knee Z96.651 H/O aortic valve replacement (Inactive) Onset Date: ~06/20/16 Z95.2 Surgical History: - - Aortic valve replacement with bioprosthetic valve. Bilateral bunionectomy. Bilateral total knee replacement. The patient is a G0, P0 Ab0. Psychiatric History: Anxiety, Depression [employer] History: No pertinent [employer] history Smoking Status: Never smoker Alcohol: None Drugs: None - *Family History Paternal Family History: Family History (Last Reviewed 01/09/20 @ 11:16 by SUSI Castro) Father CAD (coronary artery disease) Mother CAD (coronary artery disease) History Items: Dementia, Heart Disease Maternal Family History: Family History (Last Reviewed 01/09/20 @ 11:16 by SUSI Castro) Father CAD (coronary artery disease) Mother CAD (coronary artery disease) History Items: Heart Disease Review of Systems Comment: See HPI Patient Problems: Active and Suspected Problems (Last Reviewed 01/09/20 @ 11:16 by PA. SUSI Ba) Diabetic infection of left foot (Acute) Paroxysmal atrial fibrillation with RVR (Acute) Lactic acidosis (Acute) Severe sepsis (Acute) Elevated serum creatinine (Acute) Hypotension (Acute) Objective: All imaging was personally reviewed. Chest x-ray was grossly unchanged compared to previous. Foot x-ray shows soft tissue swelling with osteopenia. Telemetry is showing A. fib with RVR - Physical Exam Vitals/I&O's: Vital Signs Temp Pulse Resp BP Pulse Ox 36.8 C 110 H 22 H 82/60 L 96 04/20/20 04:00 04/20/20 07:36 04/20/20 06:00 04/20/20 06:00 04/20/20 06:00 Oxygen Flow Rate (L/min) 2 Oxygen Delivery Method Room Air Weight: 83.4 kg Body Mass Index (BMI) 31.7 Finger Stick Blood Glucose 394 Intake and Output for Last 24 Hours 04/18/20 04/19/20 04/20/20 23:59 23:59 23:59 Intake Total 4558.08 / 4558.08 1058.33 / 1058.33 Output Total 225 / 375 225 / 225 Balance 4333.08 / 4183.08 833.33 / 833.33 General: Alert, Oriented x3, Cooperative, No apparent distress, - - Appears stated age. Obese. HEENT: Atraumatic, PERRLA, EOMI, Normocephalic, - - No scleral icterus or injection noted Oral: Moist Mucosa, No Gingival or Mucosal Lesions/ Ulcerations Neck: Supple, No JVD, No Nodes, Trachea Midline Lungs: No rhonchi, No wheeze, No rales, Diminished, - - Fair effort. Symmetric expansion. Cardiovascular: Normal S1, Normal S2, Irregular Rate, Murmur - Grade 2 out of 6 systolic ejection murmur at the right sternal border, No rub noted, No Gallop, Tachycardic Abdomen: Bowel Sounds Present, Soft, Non Tender, Non-Distended, Obese Extremities: No clubbing, No cyanosis, Edema Skin: Rash Present - Medial aspect of the left foot. Significant bony prominence consistent with Charcot deformity Musculoskeletal: No Tenderness to Palpation of Joints or Extremities Lymphatic: No Cervical, Supraclavicular, or Inguinal Adenopathy Neurological: Cranial nerves II-XII grossly intact, Neuro grossly intact - Except for decreased sensation of the lower extremities Psych/Mental Status: Alert and oriented to time, place, person, mood and affect Laboratory Results 04/19/20 09:55: WBC 18.3 H, RBC 4.30, Hgb 11.8 L, Hct 37.2, MCV 86.5, MCH 27.4, MCHC 31.7 L, RDW Std Deviation 56.0 H, RDW Coeff of Blanca 18.6 H, Plt Count 289, MPV 10.0, Immature Gran % (Auto) 0.800, Neut % (Auto) 92.8 H, Lymph % (Auto) 1.4 L, [place] % (Auto) 4.9, Eos % (Auto) 0.0, Baso % (Auto) 0.1, Absolute Neuts (auto) 17.0 H, Absolute Lymphs (auto) 0.26 L, Nucleated RBC % 0, Platelet Estimate ADEQUATE, Hypochromasia RARE, Anisocytosis 1+, Acanthocytes (Spur) 2+, ESR 1 04/19/20 09:55: Sodium 132 L, Potassium 5.1, Chloride 99, Carbon Dioxide 23.0, Anion Gap 10, BUN 56 H, Creatinine 1.56 H, Estim Creat Clear Calc 23.00, Est GFR (MDRD) Af Amer 41 L, Est GFR (MDRD) Non-Af 34 L, BUN/Creatinine Ratio 35.9 H, Glucose 182 H, Calcium 8.6, Total Bilirubin 0.70, AST 69 H, ALT 64 H, Alkaline Phosphatase 134 H, C-React Prot Ext Range 37.20 H, Total Protein 6.4, Albumin 3.5, Globulin 2.9, Albumin/Globulin Ratio 1.2 04/19/20 09:55: Lactic Acid 2.2 H* 04/19/20 09:55: B-Natriuretic Peptide 423.4 H 04/19/20 09:55: Troponin I 0.034 04/19/20 10:44: PT 24.4 H, INR 2.2, APTT 40.3 H 04/19/20 14:25: Lactic Acid 2.2 H* 04/19/20 22:39: POC Glucose 275 H 04/20/20 04:45: WBC 10.6, RBC 3.83 L, Hgb 10.4 L, Hct 33.2 L, MCV 86.7, MCH 27.2, MCHC 31.3 L, RDW Std Deviation 57.3 H, RDW Coeff of Blanca 18.7 H, Plt Count 282, MPV 9.7, Immature Gran % (Auto) 0.800, Neut % (Auto) 86.5 H, Lymph % (Auto) 6.6 L, [place] % (Auto) 6.0, Eos % (Auto) 0.0, Baso % (Auto) 0.1, Absolute Neuts (auto) 9.2 H, Absolute Lymphs (auto) 0.70 L, Nucleated RBC % 0 04/20/20 04:45: Sodium 134 L, Potassium 4.6, Chloride 102, Carbon Dioxide 23.0, Anion Gap 9, BUN 55 H, Creatinine 1.63 H, Estim Creat Clear Calc 21.05, Est GFR (MDRD) Af Amer 39 L, Est GFR (MDRD) Non-Af 32 L, BUN/Creatinine Ratio 33.7 H, Glucose 245 H, Calcium 7.5 L Current Medications Acetaminophen (Tylenol) 650 mg PO Q6H PRN PRN PRN Reason: Pain Score 1-10/Temp > 100.7 F Dextrose (D50w Syringe) 0 gm IV X1 PRN; Protocol PRN Reason: Hypoglycemia Glucagon () 1 mg IM .X1 PRN PRN Reason: Hypoglycemia Sodium Chloride () 1,000 mls @ 100 mls/hr IV .Q10H [facility] Last Admin: 04/20/20 02:45 Dose: 100 mls/hr Documented by: Piperacillin Sod/Tazobactam (Sod 3.375 gm/ Sodium Chloride) 50 mls @ 12.5 mls/hr IV Q8 DONNIE Last Admin: 04/20/20 05:36 Dose: 12.5 mls/hr Documented by: Vancomycin IV Pharmacy to Dose (1 ea/ Sodium Chloride) 500 mls @ 250 mls/hr IV PRN PRN; Protocol PRN Reason: Rx to Dose Vancomycin HCl 750 mg/ Sodium (Chloride) 265 mls @ 250 mls/hr IV Q24H [facility] Sodium Chloride () 250 mls @ 15 mls/hr IV .[id number] PRN PRN Reason: Saline Flush Last Infusion: 04/20/20 05:35 Dose: 0 mls/hr Documented by: Sodium Chloride () 250 mls @ 15 mls/hr IV .[id number] PRN PRN Reason: Additional IVPB Infusion Diltiazem HCl 125 mg/ Dextrose 125 mls @ 5 mls/hr IV .Q25H DONNIE; Protocol Last Titration: 04/19/20 22:31 Dose: 0 mg/hr, 0 mls/hr Documented by: Amiodarone HCl 360 mg/ (Dextrose) 200 mls @ 16.667 mls/hr CONT INF .Q12H DONNIE Stop: 04/20/20 18:59 Last Admin: 04/20/20 02:35 Dose: 0.5 mg/min, 16.7 mls/hr Documented by: Insulin Glargine (Lantus (Bkc)) 10 units SC QHS DONNIE Last Admin: 04/19/20 22:30 Dose: 10 u Documented by: Insulin Human Lispro (Humalog Kwikpen (Bk)) 0 unit SC ACHS [facility]; Protocol Last Admin: 04/19/20 22:29 Dose: 6 u Documented by: Ondansetron HCl (Zofran) 4 mg IV Q8H PRN PRN PRN Reason: NAUSEA/VOMITING Sodium Chloride () 10 - 40 ml IV UD PRN PRN Reason: SALINE FLUSH Last Admin: 04/20/20 05:36 Dose: 10 ml Documented by: Clinical Impression(s) from Imaging Studies Foot X-Ray 04/19/20 09:46 IMPRESSION: Diffuse soft tissue swelling as well as osteopenia. Electronically Signed: Nestor Noonan, at 11:04 EDT , Service support , Chest X-Ray 04/19/20 10:25 IMPRESSION: Blunting of the right costophrenic angle. This is unchanged. Electronically Signed: Nestor Noonan, at 11:06 EDT , Service support , Assessment/Plan Active and Suspected Problems (Last Reviewed 01/09/20 @ 11:16 by PA. SUSI Ba) Diabetic infection of left foot (Acute) Paroxysmal atrial fibrillation with RVR (Acute) Lactic acidosis (Acute) Severe sepsis (Acute) Elevated serum creatinine (Acute) Hypotension (Acute) RECOMMENDATIONS: 1. Await podiatry recommendations 2. Agree with empiric antibiotics 3. Continue amiodarone drip. Could consider cardiology for optimization 4. Hold on aggressive fluid resuscitation secondary to elevated BNP 5. Possible PICC line if found to have osteomyelitis IMPRESSIONS: 1. Severe sepsis secondary to diabetic foot ulcer with Charcot foot Patient reportedly has poor hygiene habits at baseline, likely leading to infection. Patient with Charcot foot and elevated CRP was significant concern for osteomyelitis. Patient currently being treated with vancomycin and Zosyn. Podiatry has been consulted, but has not evaluated the patient. Patient appears to have responded well with normalization of lactate. Patient does have pulmonary hypertension, likely type II, at baseline so we will try to limit volume resuscitation. 2. A. fib with RVR/chronic diastolic CHF Patient appears to have responded well to amiodarone bolus and drip. Recommend obtaining cardiology for long-term recommendations and optimization, especially given the need for possible surgery in the near future. Reasonable to continue with Lipitor, but would hold Lasix and lisinopril secondary to marginal blood pressures in the short-term. 3. Diabetes mellitus type 2 leading to peripheral vascular disease, Charcot foot and diabetic foot ulcer Hold oral hypoglycemics given possibility of surgery and variable p.o. intake. Monitor with sliding scale insulin. Patient may need to be transitioned to insulin therapy for better control, but defer to endocrine as an outpatient. 4. Social concerns/pulmonary hypertension/hypertension/hyperlipidemia/advanced age/obesity Complicates care, management, recovery and prognosis. Case management to evaluate patient's living situation. Okay to continue with statin, but would hold hypertensive medications given problem #1. Obesity does complicate recovery from Charcot joint. Inpatient E&M: 62168 Init Hosp L3
[2020-04-20] MEDS: Insulin Lispro 100 UNIT/ML INSULN.PEN SC ×4 (08:34→17:20)
--- NOTE | 2020-04-20 11:04 | CASEMGMT ---
RN CM Assessment Note Intro role of CM to patient in room. Patient is awake, alert and able to participate in assessment. Patient states she lives in one story home which is a mess. Patient not able to clean well and states there isn't alot of room. My friend tells me I need to get someone to help, but I do alright. Patient's friend and her help patient with grocery shopping and transportation. -PCP/Demographics reviewed. Sister's information is incorrect. Patient gave approval for CM to contact sister and get updated address. Intro role of CM to sister in [place]. Sister shawn Updated on patient and verified her address. Updated address given to registration. New face sheet to chart. Presentation: worsening redness of foot x 2 days, loss of appetite and falls @ home. History of Chracot foot and was to have surgery today with Dr. Escobar. Diagnosis: Severe sepsis/ diabetic foot ulcer with cellulitis/Charcot foot PMH: pulm htn, LVH, biatrial enlargement, renal failure stage 3, MVI, TVI,veous insufficiency of BLE, PAF, GERD, DM2, PCP: Dr. Chad Roberts Specialists: Dr. Burton, Insurance: [facility] Preferred [facility]acy: [facility] Pres[facility] Benefit: yes LNOK: Sister, Akanksha CurranPAT. Documents in e-chart. Patient has given permission for staff to speak with sister and sister would like to remain updated. Living Arrangements: Lives in two story home, states she does not go to upstairs, but sleeps in her lift chair in living area. Pt states she only sponge bathes and does own cooking. Cleaning is difficult for her and presently she does not have help for this. Patient does state, I know I can't stay here forever, and if I need to, I'll sell the house and move to [place] with my sister. Patient states she had recent falls, carries her cell phone with her and would call her friend's to help her up. Tranportation: friend drives DME: [employer] and supplies, walker, wheelchair, lift chair- pt sleeps in. HHC: none. Discussed if HHC would be recommended, would patient be agreeable, but does not wish to make any decision yet. She has no preference for agency. SNF: none Patient DC Goals: Home DC Plan: undetermined @ this time.Awaiting Podiatry consult and plan of care.PT/OT evaluations ordered. CM will continue to follow and assist with dc planning. Karo CERVANTESN RN ACM
[2020-04-20 11:10] LABS: Bedside Glucose 171 mg/dL (70-110)
--- NOTE | 2020-04-20 12:07 | PCM.PN.HOSP ---
Patient Problems: Active and Suspected Problems (Last Reviewed 01/09/20 @ 11:16 by PA. SUSI Ba) Diabetic infection of left foot (Acute) Paroxysmal atrial fibrillation with RVR (Acute) Lactic acidosis (Acute) Severe sepsis (Acute) Elevated serum creatinine (Acute) Hypotension (Acute) Subjective: Feels a bit better, her leg is not nearly as red Vitals/I&O's: Vital Signs Temp Pulse Resp BP Pulse Ox 97.3 F L 117 H 22 H 85/60 L 98 04/20/20 11:00 04/20/20 11:00 04/20/20 11:00 04/20/20 11:00 04/20/20 11:00 Oxygen Flow Rate (L/min) 2 Oxygen Delivery Method Room Air Weight: 183 lb 13.848 oz Body Mass Index (BMI) 31.7 Finger Stick Blood Glucose 394 Intake and Output for Last 24 Hours 04/18/20 04/19/20 04/20/20 23:59 23:59 23:59 Intake Total 4558.08 / 4558.08 1258.33 / 1258.33 Output Total 225 / 375 375 / 375 Balance 4333.08 / 4183.08 883.33 / 883.33 General: Alert, Oriented x3, Cooperative, No apparent distress HEENT: Atraumatic, PERRLA, EOMI, Normocephalic Oral: Moist Mucosa Neck: Supple, No JVD Lungs: Clear to auscultation, Normal air movement, No rhonchi, No wheeze, No rales, Diminished Cardiovascular: Regular Rhythm, Normal S1, Normal S2, No murmurs, Tachycardic Abdomen: Soft, Non Tender, Non-Distended, No Hepato-splenomegaly Extremities: No edema, Capillary Refill Less than 3 Seconds Skin: - - Cellulitis extending up to the mid of her left calf, there is a diabetic ulcer approximately 2 cm in diameter on her left medial foot no drainage Neurological: Neuro grossly intact, Sensory exam intact to light touch and pain Psych/Mental Status: Normal Affect, Appropriate Laboratory Results 04/19/20 14:25: Lactic Acid 2.2 H* 04/19/20 22:39: POC Glucose 275 H 04/20/20 04:45: WBC 10.6, RBC 3.83 L, Hgb 10.4 L, Hct 33.2 L, MCV 86.7, MCH 27.2, MCHC 31.3 L, RDW Std Deviation 57.3 H, RDW Coeff of Blanca 18.7 H, Plt Count 282, MPV 9.7, Immature Gran % (Auto) 0.800, Neut % (Auto) 86.5 H, Lymph % (Auto) 6.6 L, [place] % (Auto) 6.0, Eos % (Auto) 0.0, Baso % (Auto) 0.1, Absolute Neuts (auto) 9.2 H, Absolute Lymphs (auto) 0.70 L, Nucleated RBC % 0 04/20/20 04:45: Sodium 134 L, Potassium 4.6, Chloride 102, Carbon Dioxide 23.0, Anion Gap 9, BUN 55 H, Creatinine 1.63 H, Estim Creat Clear Calc 21.05, Est GFR (MDRD) Af Amer 39 L, Est GFR (MDRD) Non-Af 32 L, BUN/Creatinine Ratio 33.7 H, Glucose 245 H, Calcium 7.5 L 04/20/20 11:07: POC Glucose 171 H Current Medications Acetaminophen (Tylenol) 650 mg PO Q6H PRN PRN PRN Reason: Pain Score 1-10/Temp > 100.7 F Dextrose (D50w Syringe) 0 gm IV X1 PRN; Protocol PRN Reason: Hypoglycemia Glucagon () 1 mg IM .X1 PRN PRN Reason: Hypoglycemia Sodium Chloride () 1,000 mls @ 100 mls/hr IV .Q10H [facility] Last Admin: 04/20/20 02:45 Dose: 100 mls/hr Documented by: Piperacillin Sod/Tazobactam (Sod 3.375 gm/ Sodium Chloride) 50 mls @ 12.5 mls/hr IV Q8 DONNIE Last Admin: 04/20/20 05:36 Dose: 12.5 mls/hr Documented by: Vancomycin IV Pharmacy to Dose (1 ea/ Sodium Chloride) 500 mls @ 250 mls/hr IV PRN PRN; Protocol PRN Reason: Rx to Dose Vancomycin HCl 750 mg/ Sodium (Chloride) 265 mls @ 250 mls/hr IV Q24H [facility] Sodium Chloride () 250 mls @ 15 mls/hr IV .[id number] PRN PRN Reason: Saline Flush Last Infusion: 04/20/20 05:35 Dose: 0 mls/hr Documented by: Sodium Chloride () 250 mls @ 15 mls/hr IV .[id number] PRN PRN Reason: Additional IVPB Infusion Diltiazem HCl 125 mg/ Dextrose 125 mls @ 5 mls/hr IV .Q25H DONNIE; Protocol Last Titration: 04/19/20 22:31 Dose: 0 mg/hr, 0 mls/hr Documented by: Amiodarone HCl 360 mg/ (Dextrose) 200 mls @ 16.667 mls/hr CONT INF .Q12H [facility] Stop: 04/20/20 18:59 Last Admin: 04/20/20 02:35 Dose: 0.5 mg/min, 16.7 mls/hr Documented by: Insulin Glargine (Lantus (Bk)) 10 units SC QHS [facility] Last Admin: 04/19/20 22:30 Dose: 10 u Documented by: Insulin Human Lispro (Humalog Kwikpen ([facility])) 0 unit SC ACHS [facility]; Protocol Last Admin: 04/20/20 11:12 Dose: 2 u Documented by: Ondansetron HCl (Zofran) 4 mg IV Q8H PRN PRN PRN Reason: NAUSEA/VOMITING Sodium Chloride () 10 - 40 ml IV UD PRN PRN Reason: SALINE FLUSH Last Admin: 04/20/20 05:36 Dose: 10 ml Documented by: STROKE Vital Signs/Narrative: Vital Signs Temp Pulse Resp BP Pulse Ox 04/20/20 11:00 97.3 F L 117 H 22 H 85/60 L 98 04/20/20 10:00 113 H 22 H 96 04/20/20 09:00 113 H 22 H 97/79 97 Medical Necessity - Tobacco Use Smoking Status: Never smoker Assessment/Plan All Active Problems (Last Reviewed 01/09/20 @ 11:16 by SUSI. SUSI Ba) Diabetic infection of left foot (Acute) Paroxysmal atrial fibrillation with RVR (Acute) Lactic acidosis (Acute) Severe sepsis (Acute) Elevated serum creatinine (Acute) Hypotension (Acute) Bronchitis (Acute) Ulcer of right lower extremity with fat layer exposed (Resolved) Ulcer of left lower extremity with fat layer exposed (Resolved) Chronic ulcer of left foot with fat layer exposed (Resolved) Chronic ulcer of right great toe with fat layer exposed (Resolved) Ulcer of left lower extremity with fat layer exposed (Resolved) Ulcer of right lower extremity with fat layer exposed (Resolved) Venous ulcers of both lower extremities (Resolved) Hyponatremia (Resolved) 1. Severe sepsis secondary to diabetic foot ulcer with cellulitis/Charcot foot -She is supposed to have surgery tomorrow with podiatry because of her Charcot foot, will consult podiatry -She has not showered over a week and has not been following with the wound care center -Leukocytosis of 18.3, and tachycardia likely related to her A. fib -Continue with vancomycin and Zosyn given the polymicrobial nature of diabetic ulcers -Lactate greater than 2.2 consistent with severe sepsis therefore she was placed in the ICU with an system planning engineer consult -We will place her on IV fluids at 100 because her BNP was elevated 423 though this could be secondary to her renal dysfunction -She had an echo in 2019 with an EF of 65% and concentric left ventricular hypertrophy with pulmonary hypertension and of our RVSP of 57 mmHg and diastolic dysfunction 2. Paroxysmal A. fib/pulmonary hypertension/chronic diastolic CHF/HTN/HLD -We will hold her Eliquis secondary to possible surgical intervention -We will hold her Lasix given her severe sepsis -We will hold her lisinopril given her renal dysfunction and her soft blood pressures -Can continue with Lipitor once dosage is confirmed -Blood pressure is in the low 80s however map is in the 70s -She was started on low-dose Cardizem yesterday afternoon however she did not tolerate this very well and it did not affect her heart rate very well therefore she was transitioned by the system planning engineer to amiodarone drip which she is doing okay with. -INR is 2.2 secondary to the Eliquis 3. DM 2 with diabetic foot ulcer and Charcot foot -We will hold her oral hypoglycemics and transition her to a sliding scale insulin -Continue with Lantus 10 units at night -Accu-Cheks AC at bedtime DVT: Therapeutic INR, 1 subtherapeutic and transition to heparin subcu Inpatient E&M: [id number] [facility] L2
--- NOTE | 2020-04-20 12:37 | ART_ITS ---
Reason For Study: Ulcer Procedure A bilateral lower extremity continuous wave Doppler with analog waveform analysis,segmental pressures,and ankle brachial indexes without exercise. Left Segmental Pressures Left brachial= 96mmHg. Left dorsalis pedis artery = >254mmHg. The left dorsalis pedis waveforms are biphasic. The left posterior tibial artery waveforms are absent. Right Segmental Pressures Right dorsalis pedis artery = 136mmHg. The right dorsalis pedis waveforms are biphasic. Rt SALES CLERK FOOD wave forms are absent. Indices The right ankle brachial index by the dorsalis pedis is 1.42. The left ankle brachial index by the dorsalis pedis is NC. Interpretation Summary Technically challenging and limited examination due to inability to obtain accurate ankle-brachial indices. Bilateral posterior tibial arteries are not able to be detected and suspected occluded Bilateral dorsalis pedis demonstrate biphasic Doppler waveforms and upon this interpretation would have moderately severe stenosis No pulses identified in the toes consistent with severe disease Ordering Physician: Ollie Ashley Referring Physician: Chad Chang Performed By: Inga Raines RVT
--- NOTE | 2020-04-20 12:38 | MRI_ITS ---
STUDY: MRI LEFT MIDFOOT REASON FOR EXAM: Female, 84 years old. Chronic LEFT medial foot infection/cellulitis, Hx of diabetes, charcot foot TECHNIQUE: Standardized fat and water weighted pulse sequences were obtained in all 3 orthogonal planes. COMPARISON: Left foot x-ray dated April 19, 2020 FINDINGS: Mild to moderate Charcot arthropathy changes are present including small erosions of several of the tarsal bones and talus. Small subcortical cysts and reactive edema is seen throughout the midfoot bony structures. The visualized metatarsal bones and proximal phalanges are unremarkable. A small to moderate size ankle joint effusion is present. The tibiotalar articulation is moderately narrowed. A plaster splint is deformity is present with slight reversal of the arch of the ankle. Moderate soft tissue swelling and small amounts of fluid noted around the foot. No demonstrated abscess. Normal first tarsometatarsal articulation. Normal Lisfranc ligament. Normal second and third tarsometatarsal articulations. Normal cuboid fourth and cuboid fifth tarsometatarsal articulation. Normal first through fifth metatarsi. Normal tibialis anterior tendon. Normal extensor hallucis longus tendon. Normal extensor digitorum longus tendons. Normal peroneus longus tendon and distal insertion. Normal peroneus brevis tendon and distal insertion. There is diffuse atrophy of the intrinsic muscles of the foot consistent with a peripheral neuropathy. MRI/Lower Ext/No Jt/w/o IMPRESSION: 1. Mild to moderate Charcot arthropathy/osteoarthritis. No evidence of osteomyelitis or a soft tissue abscess. Electronically Signed: Pato Clarke MD at 19:23 EDT , Service support ,
--- NOTE | 2020-04-20 12:41 | CON.PCM_ITS ---
Reason for Consult Date of Consultation: 04/20/20 Reason for Consultation: Left foot ulcer and infection History of Present Illness: The patient is a 84 year old female with multiple medical problems seen for left foot ulceration and cellulitis. Patient relates to chronic on and off wound to the left foot, relates she has been evaluated for this in the past, surgery has been considered. Patient relates it was worsening so she present to ER, and was admitted, currently in ICU. Patient on Vanc and Zosyn. Patient WBC was elevated, now normal today. Patient afebrile. Patient hypotensive and lactic acid elevated. Patient relates she lives alone, has no children. Relies on neighbor and also has a sister in [place]. Patient relates she does not have a custom brace for the foot. She relates she uses a walker. She has multiple medical problems - diabetes, RA, kidney disease, heart disease, PVD as well. Past Medical History Past Medical History (Chronic Problems): Chronic Problems (Last Reviewed 01/09/20 @ 11:16 by PA. SUSI Ba) Leg swelling (Chronic) Leg edema (Chronic) Rheumatoid arthritis (Chronic) Debility (Chronic) Overweight (BMI 25.0-29.9) (Chronic) CHF (congestive heart failure) (Chronic) Hypertension (Chronic) Hiatal hernia (Chronic) Dependent edema (Chronic) Chronic venous insufficiency (Chronic) Restless legs (Chronic) Peripheral arterial disease (Chronic) Charcot foot due to diabetes mellitus (Chronic) Mixed hyperlipidemia (Chronic) Moderate pulmonary arterial systolic hypertension (Chronic) LVH (left ventricular hypertrophy) (Chronic) Biatrial enlargement (Chronic) Chronic anticoagulation (Chronic) Chronic renal failure, stage 3 (moderate) (Chronic) Apixaban Overactive bladder (Chronic) Tinea unguium (Chronic) Hallux valgus (acquired), right foot (Chronic) Nonrheumatic mitral (valve) insufficiency (Chronic) Non-rheumatic tricuspid valve insufficiency (Chronic) Anxiety and depression (Chronic) Venous insufficiency of both lower extremities (Chronic) Type 2 diabetes mellitus (Chronic) Uncontrolled hemoglobin A1c on 08/18/2018 is 10.4 Paroxysmal atrial fibrillation (Chronic) History of aortic valve replacement with bioprosthetic valve (Chronic ~06/20/16) 23 mm Saint to trifecta GT valve in June 2016 at [facility]; Pulmonary hypertension (Chronic) Medical History: Medical History (Last Reviewed 01/09/20 @ 11:16 by PA. SUSI Ba) Mixed hyperlipidemia (Chronic) E78.2 Moderate pulmonary arterial systolic hypertension (Chronic) I27.21 LVH (left ventricular hypertrophy) (Chronic) I51.7 Biatrial enlargement (Chronic) I51.7 Chronic anticoagulation (Chronic) Z79.01 Chronic renal failure, stage 3 (moderate) (Chronic) N18.3 Apixaban Bronchitis (Acute) J40 Secondary to RSV B Nonrheumatic mitral (valve) insufficiency (Chronic) I34.0 Non-rheumatic tricuspid valve insufficiency (Chronic) I36.1 Anxiety and depression (Chronic) F41.8 Venous insufficiency of both lower extremities (Chronic) I87.2 Ulcer of right lower extremity with fat layer exposed (Resolved) L97.912 Venous ulcers of both lower extremities (Resolved) I87.2, L97.919, L97.929 Type 2 diabetes mellitus (Chronic) E11.9 Uncontrolled hemoglobin A1c on 08/18/2018 is 10.4 Paroxysmal atrial fibrillation (Chronic) I48.0 Pulmonary hypertension (Chronic) I27.2 GERD (gastroesophageal reflux disease) K21.9 Nonrheumatic aortic (valve) stenosis I35.0 Hyponatremia (Resolved) E87.1 Abnormal pulmonary function (Inactive) R94.2 Aortic stenosis (Inactive) I35.0 DM2 (diabetes mellitus, type 2) (Inactive) E11.9 Diabetes mellitus (Inactive) E11.9 Mitral valve disorder (Inactive) I05.9 Allergies No Known Allergies Allergy (Verified 04/19/20 09:28) Home Medications: Ambulatory Orders Medication Instructions Recorded metformin 1,000 mg tablet 1,000 mg PO BREAKFAST 0 Days 03/15/18 Atorvastatin Calcium 20 mg PO DAILY 07/08/18 Lisinopril [Zestril] 5 mg PO DAILY 07/08/18 Tolterodine Tartrate [Tolterodine 4 mg PO DAILY 07/08/18 Tartrate ER] Acetaminophen [Tylenol] 1,000 mg PO Q6H PRN PRN tab 08/06/18 apixaban 5 mg tablet 5 mg PO BID #180 tab 11/12/18 furosemide 20 mg tablet 20 mg PO .COMPLEX 01/09/20 potassium chloride 20 mEq 20 meq PO .COMPLEX 01/09/20 tablet,extended release Albuterol Aerosols [Ventolin 2.5 mg INHALATION Q4H PRN PRN 04/20/20 Aerosols] Albuterol Inhaler [Ventolin Hfa 2 puff INHALATION Q4H PRN PRN 04/20/20 (SP)] Folic Acid 1 mg PO DAILY 04/20/20 Glimepiride [Amaryl] 4 mg PO DAILY 04/20/20 Ipratropium/Albuterol Sulfate 3 ml INHALATION Q6H.RT PRN 04/20/20 [Duoneb] Iron Polysaccharide Complex 150 mg PO DAILYCM 04/20/20 [Ferrex 150] Linagliptin [Tradjenta] 5 mg PO DAILY 04/20/20 Metformin HCl [Metformin HCl ER] 500 mg PO DINNER 04/20/20 Methotrexate Sodium [Methotrexate] 12.5 mg PO QWEEK 04/20/20 Omeprazole 20 mg PO DAILY 04/20/20 Pioglitazone [Actos] 30 mg PO DAILY@0800 04/20/20 Surgical History: Surgical History (Last Reviewed 01/09/20 @ 11:16 by SUSI Castro) History of aortic valve replacement with bioprosthetic valve (Chronic) Onset Date: ~06/20/16 Z95.4 23 mm Saint to trifecta GT valve in June 2016 at [facility]; History of knee replacement procedure of left knee Z96.652 History of knee replacement procedure of right knee Z96.651 H/O aortic valve replacement (Inactive) Onset Date: ~06/20/16 Z95.2 Surgical History: - - Aortic valve replacement with bioprosthetic valve. Bilat eral bunionectomy. Bilateral total knee replacement. The patient is a G0, P0 Ab0. Psychiatric History: Anxiety, Depression INBOUND SALES REPRESENTATIVE History: No pertinent INBOUND SALES REPRESENTATIVE history Smoking Status: Never smoker Alcohol: None Drugs: None - *Family History Paternal Family History: Family History (Last Reviewed 01/09/20 @ 11:16 by SUSI Castro) Father CAD (coronary artery disease) Mother CAD (coronary artery disease) History Items: Dementia, Heart Disease Maternal Family History: Family History (Last Reviewed 01/09/20 @ 11:16 by SUSI Castro) Father CAD (coronary artery disease) Mother CAD (coronary artery disease) History Items: Heart Disease Review of Systems Constitutional: Denies: Chills, Fever Gastrointestinal: Denies: Nausea, Vomiting Musculoskeletal: Reports: Foot Pain Patient Problems: Active and Suspected Problems (Last Reviewed 01/09/20 @ 11:16 by PA. SUSI Ba) Diabetic infection of left foot (Acute) Paroxysmal atrial fibrillation with RVR (Acute) Lactic acidosis (Acute) Severe sepsis (Acute) Elevated serum creatinine (Acute) Hypotension (Acute) - Physical Exam Vitals/I&O's: Vital Signs Temp Pulse Resp BP Pulse Ox 97.8 F 121 H 18 78/59 L 100 04/20/20 12:00 04/20/20 12:00 04/20/20 12:00 04/20/20 12:00 04/20/20 12:00 Oxygen Flow Rate (L/min) 2 Oxygen Delivery Method Room Air Weight: 83.4 kg Body Mass Index (BMI) 31.7 Finger Stick Blood Glucose 394 Intake and Output for Last 24 Hours 04/18/20 04/19/20 04/20/20 23:59 23:59 23:59 Intake Total 4558.08 / 4558.08 1358.33 / 1358.33 Output Total 225 / 375 375 / 375 Balance 4333.08 / 4183.08 983.33 / 983.33 General: Alert, Cooperative, No apparent distress Extremities: Capillary Refill Less than 3 Seconds, No Calf Tenderness, - - Left foot: There is ulceration to the plantar medial foot at level of talar head, there is noted to be light erythema/cellulitis to the foot/ankle and distal leg, there is no streaking noted, the ulcer with nonviable tissue and ulcer appears down to subcutaneous layer, there is no visible abscess, no crepitus, no maloder, no fluctuance noted, no other ulcerations noted to the foot/ankle or leg. The toenails are long, thick, yellow, dystrophic w/ subungual debris on the left foot. There is no noted acute ischemia to the foot/ankle, CFT < 2 seconds to all toes, there is diffuse edema noted which appears to be chronic, there is severe deformity of the left foot - pes planovalgus noted with very prominent talar head medially. There is noted to be some decreased sensation to the foot c/w neuropathy left foot. Psych/Mental Status: Appropriate, Alert and oriented to time, place, person, mood and affect Laboratory Results 04/19/20 14:25: Lactic Acid 2.2 H* 04/19/20 22:39: POC Glucose 275 H 04/20/20 04:45: WBC 10.6, RBC 3.83 L, Hgb 10.4 L, Hct 33.2 L, MCV 86.7, MCH 27.2, MCHC 31.3 L, RDW Std Deviation 57.3 H, RDW Coeff of Blanca 18.7 H, Plt Count 282, MPV 9.7, Immature Gran % (Auto) 0.800, Neut % (Auto) 86.5 H, Lymph % (Auto) 6.6 L, [place] % (Auto) 6.0, Eos % (Auto) 0.0, Baso % (Auto) 0.1, Absolute Neuts (auto) 9.2 H, Absolute Lymphs (auto) 0.70 L, Nucleated RBC % 0 04/20/20 04:45: Sodium 134 L, Potassium 4.6, Chloride 102, Carbon Dioxide 23.0, Anion Gap 9, BUN 55 H, Creatinine 1.63 H, Estim Creat Clear Calc 21.05, Est GFR (MDRD) Af Amer 39 L, Est GFR (MDRD) Non-Af 32 L, BUN/Creatinine Ratio 33.7 H, Glucose 245 H, Calcium 7.5 L 04/20/20 11:07: POC Glucose 171 H Current Medications Acetaminophen (Tylenol) 650 mg PO Q6H PRN PRN PRN Reason: Pain Score 1-10/Temp > 100.7 F Dextrose (D50w Syringe) 0 gm IV X1 PRN; Protocol PRN Reason: Hypoglycemia Glucagon () 1 mg IM .X1 PRN PRN Reason: Hypoglycemia Sodium Chloride () 1,000 mls @ 100 mls/hr IV .Q10H [facility] Last Admin: 04/20/20 02:45 Dose: 100 mls/hr Documented by: Piperacillin Sod/Tazobactam (Sod 3.375 gm/ Sodium Chloride) 50 mls @ 12.5 mls/hr IV Q8 DONNIE Last Admin: 04/20/20 05:36 Dose: 12.5 mls/hr Documented by: Vancomycin IV Pharmacy to Dose (1 ea/ Sodium Chloride) 500 mls @ 250 mls/hr IV PRN PRN; Protocol PRN Reason: Rx to Dose Vancomycin HCl 750 mg/ Sodium (Chloride) 265 mls @ 250 mls/hr IV Q24H DONNIE Sodium Chloride () 250 mls @ 15 mls/hr IV .[id number] PRN PRN Reason: Saline Flush Last Infusion: 04/20/20 05:35 Dose: 0 mls/hr Documented by: Sodium Chloride () 250 mls @ 15 mls/hr IV .[id number] PRN PRN Reason: Additional IVPB Infusion Diltiazem HCl 125 mg/ Dextrose 125 mls @ 5 mls/hr IV .Q25H DONNIE; Protocol Last Titration: 04/19/20 22:31 Dose: 0 mg/hr, 0 mls/hr Documented by: Amiodarone HCl 360 mg/ (Dextrose) 200 mls @ 16.667 mls/hr CONT INF .Q12H DONNIE Stop: 04/20/20 18:59 Last Admin: 04/20/20 02:35 Dose: 0.5 mg/min, 16.7 mls/hr Documented by: Insulin Glargine (Lantus (Bkc)) 10 units SC QHS DONNIE Last Admin: 04/19/20 22:30 Dose: 10 u Documented by: Insulin Human Lispro (Humalog Kwikpen (Bkc)) 0 unit SC ACHS [facility]; Protocol Last Admin: 04/20/20 11:12 Dose: 2 u Documented by: Insulin Human Lispro (Humalog Kwikpen (Bkc)) 5 unit SC TIDAC [facility] Ondansetron HCl (Zofran) 4 mg IV Q8H PRN PRN PRN Reason: NAUSEA/VOMITING Sodium Chloride () 10 - 40 ml IV UD PRN PRN Reason: SALINE FLUSH Last Admin: 04/20/20 05:36 Dose: 10 ml Documented by: Assessment/Plan All Active Problems (Last Reviewed 01/09/20 @ 11:16 by SUSI Castro) Diabetic infection of left foot (Acute) Paroxysmal atrial fibrillation with RVR (Acute) Lactic acidosis (Acute) Severe sepsis (Acute) Elevated serum creatinine (Acute) Hypotension (Acute) Bronchitis (Acute) Ulcer of right lower extremity with fat layer exposed (Resolved) Ulcer of left lower extremity with fat layer exposed (Resolved) Chronic ulcer of left foot with fat layer exposed (Resolved) Chronic ulcer of right great toe with fat layer exposed (Resolved) Ulcer of left lower extremity with fat layer exposed (Resolved) Ulcer of right lower extremity with fat layer exposed (Resolved) Venous ulcers of both lower extremities (Resolved) Hyponatremia (Resolved) Ulceration down to subcutaneous tissue left foot Cellulitis left lower extremity Charcot neuroarthropathy left foot PVD lower extremity Diabetes, RA, and multiple comorbidities Reviewed diagnostic data. Reviewed left foot xrays and labs. Discussed with patient. MRI was ordered for further evaluation. LEAS were ordered for further evaluation of lower extremity arterial flow. No plans for emergent podiatric surgery at this time. Discussed with patient she is at very high risk for any type of future reconstructive foot surgery given her multiple comorbidities. Would recommend against reconstructive surgery at this time given current infection as well as multiple comorbidities. We will plan to proceed with bracing, a CAM Walker will be ordered for patient, and termite control representative a custom AFO to brace foot/ankle and offload ulceration site. Patient is on Vanc and Zosyn, a culture was obtained from the ulcer site and sent to microbiology. The ulceration was debrided in excisional fashion using a 15 blade, removing nonviable tissue. Post debridement ulcer measured 1.2cm x 0.6cm and 0.2cm in depth down to subcutaneous tissue lyaer. Hemostasis was achieved with pressure and gauze. No anesthesia was needed due to presence of some neuropathy. A dressing of betadine soln, gauze, kerlix and silvia applied. Change daily using Aquacel Ag and gauze, kerlix and silvia. No weightbearing left foot. Thank you for consult, podiatry will continue to follow closely.
[2020-04-20 15:50] LABS: M R Staph aureus DNA By PCR Negative (Negative); Probe Check PASS; Staph aureus DNA By PCR POSITIVE (Negative)
[2020-04-20 16:25] LABS: Bedside Glucose 152 mg/dL (70-110)
[2020-04-20] MEDS: Acetaminophen 325 MG Tablet 650 MG PO (17:24)
[2020-04-20 21:55] LABS: Bedside Glucose 148 mg/dL (70-110)
[2020-04-21] VITALS (29 sets, daily range): BP systolic 81–137; BP diastolic 50–103; PULSE 25–127; RESP 17–27; TEMP 36.4–36.9; O2SAT 92–99
[2020-04-21] MEDS: 0.9% Normal Saline 1,000 ML 100 ML IV ×2 (00:20→08:17)
[2020-04-21] MEDS: Amiodarone 360 MG in Dextrose 5% Viaflo Bag 192.8 ML 16.7 MG CONT INF ×2 (01:42→13:09)
[2020-04-21 04:30] LABS: Absolute Lymphocyte Count 1.24 X10^3/uL (0.83-4.51); Absolute Neutrophil Count 9.3 X10^3/uL (2.0-7.7); Basophil# 0.04 X10^3/uL; Basophil% 0.3 % (0-1); Eosinophil# 0.01 X10^3/uL; Eosinophils% 0.1 % (0-5); Hematocrit 35.9 % (37-47); Hemoglobin 11.4 g/dL (12.0-15.0); Lymphocyte # 1.24 X10^3/ul (4.0); Lymphocyte % 10.6 % (19-41); Mean Corp Hgb Conc 31.8 g/dL (32-36); Mean Corpuscular Hgb 27.8 pg (27.0-32.0); Mean Corpuscular Volume 87.6 fL (81-99); Mean Platelet Vol. 9.7 fl (6.2-12.0); Monocyte# 0.85 X10^3/uL; Monocyte% 7.3 % (0-10); NRBC Flagged by Analyzer 0.3 % (0-5); Neutrophil # 9.31 X10^3/uL (2.7-7.7); Neutrophil % 79.4 % (47-70); Platelet Count 271 K/mm3 (150-450); RBC Distribution Width SD 58.6 fl (35.1-43.9); White Blood Count 11.7 K/mm3 (4.4-11.0)
[2020-04-21 04:38] LABS: International Normalized Ratio 2.2; Prothrombin Time (Protime)PT. 23.9 SECONDS (11.7-14.9)
[2020-04-21 04:45] LABS: Anion Gap 8 (5-15); BUN 57 mg/dL (7-18); BUN/Creat Ratio 34.3 RATIO (10-20); Calcium,Total 7.4 mg/dL (8.5-10.1); Chloride 104 mmol/L (98-107); Creatinine, Serum 1.66 mg/dL (0.55-1.02); EST Glomerular Filtration Rate 31 mL/min (>60); Est Glom Filt Rate - Afr Amer 38 mL/min (>60); Estimated Creatinine Clearance 20.67 ml/min; Glucose 104 mg/dL (74-106); Potassium 4.2 mmol/L (3.5-5.1); Sodium Level 133 mmol/L (136-145)
[2020-04-21] MEDS: Acetaminophen 325 MG Tablet 650 MG PO (08:19)
[2020-04-21] MEDS: Insulin Lispro 100 UNIT/ML INSULN.PEN SC (08:22)
[2020-04-21] MEDS: Metoprolol Tartrate 5 MG/5 ML Vial IV (08:27)
[2020-04-21 08:32] LABS: Bedside Glucose 138 mg/dL (70-110)
--- NOTE | 2020-04-21 08:58 | PN_ITS ---
Subjective: Patient did well overnight. Patient's blood pressures have continued to improve, but she remains tachycardic. Patient tolerating room air. Patient did have an MRI overnight showing no osteomyelitis. Patient was also evaluated by podiatry and had debridement. Patient tolerated the procedure well and has no complaints this morning. General: Alert, Oriented x3, Cooperative, No apparent distress, - - Appears stated age. Speaking in full sentences. HEENT: Atraumatic, PERRLA, EOMI, Normocephalic, - - No scleral icterus or injection noted Oral: Moist Mucosa, No Gingival or Mucosal Lesions/ Ulcerations Neck: Supple, No JVD, No Nodes, Trachea Midline Lungs: No rhonchi, No wheeze, No rales, Diminished, - - Fair effort. Symmetric expansion Cardiovascular: Normal S1, Normal S2, No murmurs, Irregular Rate, No rub noted, No Gallop, Tachycardic Abdomen: Bowel Sounds Present, Soft, Non Tender, Non-Distended Extremities: No clubbing, No cyanosis, Edema Skin: - - Debridement area was not evaluated as dressing was in place Musculoskeletal: No Tenderness to Palpation of Joints or Extremities Lymphatic: No Cervical, Supraclavicular, or Inguinal Adenopathy Neurological: Cranial nerves II-XII grossly intact, Neuro grossly intact - Some peripheral neuropathy appreciated Psych/Mental Status: Alert and oriented to time, place, person, mood and affect Vital Signs Temp Pulse Resp BP Pulse Ox 36.9 C 121 H 27 H 124/103 H 98 04/21/20 08:00 04/21/20 08:27 04/21/20 08:00 04/21/20 08:27 04/21/20 08:00 Oxygen Flow Rate (L/min) 2 Oxygen Delivery Method Room Air Weight: 85.4 kg Body Mass Index (BMI) 31.7 Finger Stick Blood Glucose 394 Intake and Output for Last 24 Hours 04/19/20 04/20/20 04/21/20 23:59 23:59 23:59 Intake Total 4558.08 / 4558.08 3010.93 / 3010.93 2050.01 / 2049. Output Total 225 / 375 625 / 675 150 / 150 Balance 4333.08 / 4183.08 2385.93 / 2335.93 1900.01 / 190.01 Labs (Last 48 Hours) 04/19/20 04/19/20 04/19/20 09:55 09:55 09:55 WBC 18.3 H RBC 4.30 Hgb 11.8 L Hct 37.2 MCV 86.5 MCH 27.4 MCHC 31.7 L RDW Std Deviation 56.0 H RDW Coeff of Blanca 18.6 H Plt Count 289 MPV 10.0 Immature Gran % (Auto) 0.800 Neut % (Auto) 92.8 H Lymph % (Auto) 1.4 L [place] % (Auto) 4.9 Eos % (Auto) 0.0 Baso % (Auto) 0.1 Absolute Neuts (auto) 17.0 H Absolute Lymphs (auto) 0.26 L Nucleated RBC % 0 Platelet Estimate ADEQUATE Hypochromasia RARE Anisocytosis 1+ Acanthocytes (Spur) 2+ ESR 1 PT INR APTT Sodium 132 L Potassium 5.1 Chloride 99 Carbon Dioxide 23.0 Anion Gap 10 BUN 56 H Creatinine 1.56 H Estim Creat Clear Calc 23.00 Est GFR (MDRD) Af Amer 41 L Est GFR (MDRD) Non-Af 34 L BUN/Creatinine Ratio 35.9 H Glucose 182 H Lactic Acid 2.2 H* Calcium 8.6 Total Bilirubin 0.70 AST 69 H ALT 64 H Alkaline Phosphatase 134 H Troponin I C-React Prot Ext Range 37.20 H B-Natriuretic Peptide Total Protein 6.4 Albumin 3.5 Globulin 2.9 Albumin/Globulin Ratio 1.2 S.aureus Protein A PCR MRSA (PCR) POC Glucose 04/19/20 04/19/20 04/19/20 09:55 09:55 10:44 WBC RBC Hgb Hct MCV MCH MCHC RDW Std Deviation RDW Coeff of Blanca Plt Count MPV Immature Gran % (Auto) Neut % (Auto) Lymph % (Auto) [place] % (Auto) Eos % (Auto) Baso % (Auto) Absolute Neuts (auto) Absolute Lymphs (auto) Nucleated RBC % Platelet Estimate Hypochromasia Anisocytosis Acanthocytes (Spur) ESR PT 24.4 H INR 2.2 APTT 40.3 H Sodium Potassium Chloride Carbon Dioxide Anion Gap BUN Creatinine Estim Creat Clear Calc Est GFR (MDRD) Af Amer Est GFR (MDRD) Non-Af BUN/Creatinine Ratio Glucose Lactic Acid Calcium Total Bilirubin AST ALT Alkaline Phosphatase Troponin I 0.034 C-React Prot Ext Range B-Natriuretic Peptide 423.4 H Total Protein Albumin Globulin Albumin/Globulin Ratio S.aureus Protein A PCR MRSA (PCR) POC Glucose 04/19/20 04/19/20 04/20/20 14:25 22:39 04:45 WBC 10.6 RBC 3.83 L Hgb 10.4 L Hct 33.2 L MCV 86.7 MCH 27.2 MCHC 31.3 L RDW Std Deviation 57.3 H RDW Coeff of Blanca 18.7 H Plt Count 282 MPV 9.7 Immature Gran % (Auto) 0.800 Neut % (Auto) 86.5 H Lymph % (Auto) 6.6 L [place] % (Auto) 6.0 Eos % (Auto) 0.0 Baso % (Auto) 0.1 Absolute Neuts (auto) 9.2 H Absolute Lymphs (auto) 0.70 L Nucleated RBC % 0 Platelet Estimate Hypochromasia Anisocytosis Acanthocytes (Spur) ESR PT INR APTT Sodium Potassium Chloride Carbon Dioxide Anion Gap BUN Creatinine Estim Creat Clear Calc Est GFR (MDRD) Af Amer Est GFR (MDRD) Non-Af BUN/Creatinine Ratio Glucose Lactic Acid 2.2 H* Calcium Total Bilirubin AST ALT Alkaline Phosphatase Troponin I C-React Prot Ext Range B-Natriuretic Peptide Total Protein Albumin Globulin Albumin/Globulin Ratio S.aureus Protein A PCR MRSA (PCR) POC Glucose 275 H 04/20/20 04/20/20 04/20/20 04:45 11:07 12:30 WBC RBC Hgb Hct MCV MCH MCHC RDW Std Deviation RDW Coeff of Blanca Plt Count MPV Immature Gran % (Auto) Neut % (Auto) Lymph % (Auto) [place] % (Auto) Eos % (Auto) Baso % (Auto) Absolute Neuts (auto) Absolute Lymphs (auto) Nucleated RBC % Platelet Estimate Hypochromasia Anisocytosis Acanthocytes (Spur) ESR PT INR APTT Sodium 134 L Potassium 4.6 Chloride 102 Carbon Dioxide 23.0 Anion Gap 9 BUN 55 H Creatinine 1.63 H Estim Creat Clear Calc 21.05 Est GFR (MDRD) Af Amer 39 L Est GFR (MDRD) Non-Af 32 L BUN/Creatinine Ratio 33.7 H Glucose 245 H Lactic Acid Calcium 7.5 L Total Bilirubin AST ALT Alkaline Phosphatase Troponin I C-React Prot Ext Range B-Natriuretic Peptide Total Protein Albumin Globulin Albumin/Globulin Ratio S.aureus Protein A PCR POSITIVE H MRSA (PCR) Negative POC Glucose 171 H 04/20/20 04/20/20 04/21/20 16:18 21:46 04:20 WBC 11.7 H RBC 4.10 L Hgb 11.4 L Hct 35.9 L MCV 87.6 MCH 27.8 MCHC 31.8 L RDW Std Deviation 58.6 H RDW Coeff of Blanca 19.0 H Plt Count 271 MPV 9.7 Immature Gran % (Auto) 2.300 H Neut % (Auto) 79.4 H Lymph % (Auto) 10.6 L [place] % (Auto) 7.3 Eos % (Auto) 0.1 Baso % (Auto) 0.3 Absolute Neuts (auto) 9.3 H Absolute Lymphs (auto) 1.24 Nucleated RBC % 0.3 Platelet Estimate Hypochromasia Anisocytosis Acanthocytes (Spur) ESR PT INR APTT Sodium Potassium Chloride Carbon Dioxide Anion Gap BUN Creatinine Estim Creat Clear Calc Est GFR (MDRD) Af Amer Est GFR (MDRD) Non-Af BUN/Creatinine Ratio Glucose Lactic Acid Calcium Total Bilirubin AST ALT Alkaline Phosphatase Troponin I C-React Prot Ext Range B-Natriuretic Peptide Total Protein Albumin Globulin Albumin/Globulin Ratio S.aureus Protein A PCR MRSA (PCR) POC Glucose 152 H 148 H 04/21/20 04/21/20 04/21/20 04:20 04:20 07:58 WBC RBC Hgb Hct MCV MCH MCHC RDW Std Deviation RDW Coeff of Blanca Plt Count MPV Immature Gran % (Auto) Neut % (Auto) Lymph % (Auto) [place] % (Auto) Eos % (Auto) Baso % (Auto) Absolute Neuts (auto) Absolute Lymphs (auto) Nucleated RBC % Platelet Estimate Hypochromasia Anisocytosis Acanthocytes (Spur) ESR PT 23.9 H INR 2.2 APTT Sodium 133 L Potassium 4.2 Chloride 104 Carbon Dioxide 21.0 Anion Gap 8 BUN 57 H Creatinine 1.66 H Estim Creat Clear Calc 20.67 Est GFR (MDRD) Af Amer 38 L Est GFR (MDRD) Non-Af 31 L BUN/Creatinine Ratio 34.3 H Glucose 104 Lactic Acid Calcium 7.4 L Total Bilirubin AST ALT Alkaline Phosphatase Troponin I C-React Prot Ext Range B-Natriuretic Peptide Total Protein Albumin Globulin Albumin/Globulin Ratio S.aureus Protein A PCR MRSA (PCR) POC Glucose 138 H Microbiology 04/20/20 12:30 Wound - Left Foot Gram Stain - Preliminary Clinical Impression(s) from Imaging Studies Lower Extremity MRI 04/20/20 12:38 IMPRESSION: 1. Mild to moderate Charcot arthropathy/osteoarthritis. No evidence of osteomyelitis or a soft tissue abscess. Electronically Signed: Pato Clarke MD at 19:23 EDT , Service support , Medical Necessity - Tobacco Use Smoking Status: Never smoker Assessment/Plan All Active Problems (Last Reviewed 01/09/20 @ 11:16 by PA. SUSI Ba) Diabetic infection of left foot (Acute) Paroxysmal atrial fibrillation with RVR (Acute) Lactic acidosis (Acute) Severe sepsis (Acute) Elevated serum creatinine (Acute) Hypotension (Acute) Bronchitis (Acute) Ulcer of right lower extremity with fat layer exposed (Resolved) Ulcer of left lower extremity with fat layer exposed (Resolved) Chronic ulcer of left foot with fat layer exposed (Resolved) Chronic ulcer of right great toe with fat layer exposed (Resolved) Ulcer of left lower extremity with fat layer exposed (Resolved) Ulcer of right lower extremity with fat layer exposed (Resolved) Venous ulcers of both lower extremities (Resolved) Hyponatremia (Resolved) RECOMMENDATIONS: 1. Appreciate podiatry recommendations 2. Consider narrowing of antibiotic spectrum with MSSA from wound 3. Continue amiodarone drip. Obtain cardiology consult for long-term recommendations 4. Consider transition to p.o. amiodarone 5. Okay to leave the intensive care unit to telemetry from my perspective IMPRESSIONS: 1. Severe sepsis secondary to diabetic foot ulcer with Charcot foot Patient reportedly has poor hygiene habits at baseline, likely leading to infection. Patient with Charcot foot and elevated CRP was significant concern for osteomyelitis. Patient currently being treated with vancomycin and Zosyn, but wound culture is showing probable MSSA. Podiatry has been consulted and completed debridement with plans to address as an outpatient. Patient does have pulmonary hypertension, likely type II, at baseline so we will try to limit volume resuscitation. 2. A. fib with RVR/chronic diastolic CHF Patient appears to have responded well to amiodarone bolus and drip. Could consider transitioning to p.o. amiodarone. Will obtain cardiology for long-term recommendations and optimization, especially given the need for possible surgery in the near future. Reasonable to continue with Lipitor, but would hold Lasix and lisinopril secondary to marginal blood pressures in the [place] rt-term. 3. Diabetes mellitus type 2 leading to peripheral vascular disease, Charcot foot and diabetic foot ulcer Hold oral hypoglycemics given possibility of surgery and variable p.o. intake. Monitor with sliding scale insulin. Patient may need to be transitioned to insulin therapy for better control, but defer to endocrine as an outpatient. 4. Social concerns/pulmonary hypertension/hypertension/hyperlipidemia/advanced age/obesity Complicates care, management, recovery and prognosis. Case management to evaluate patient's living situation. Okay to continue with statin, but would hold hypertensive medications given problem #1. Obesity does complicate recovery from Charcot joint. Inpatient E&M: [id number] [facility] L3
--- NOTE | 2020-04-21 10:25 | CASEMGMT ---
RN CM Note: participated in ICU interdisciplinary rounds. Bedside debridement completed by podiatry yesterday. No surgical intervention for Charcot's planned while in hospital. MRI completed yesterday. Continues on Amiodarone gtt, BGM with insulin monitoring, IV antibiotics. Wound nurse is consulted. PT/OT evaluation completed. Patient is max assist of 2 with activities. SNF was recommended. -SW consult placed for SNF placement on dc. -DC Plan: anticipate SNF on discharge. Karo CELAYA RN ACM
--- NOTE | 2020-04-21 10:28 | NURSING ---
Patient getting arterial study - Monitor reading systolic at 82 - Manual read of 96 by technicians - will recheck once study is completed. Pt asymptomatic.
--- NOTE | 2020-04-21 10:41 | NURSING ---
wound photo: left medial foot
[2020-04-21] MEDS: Nystatin Powder 15gm Bottle 1 APPLIC TOPICAL ×2 (11:37→19:57)
[2020-04-21 11:56] LABS: Bedside Glucose 120 mg/dL (70-110)
--- NOTE | 2020-04-21 12:09 | CASEMGMT ---
SW reviewed chart and noted patient did not do well with therapy. SW spoke with patient this am and she is agreeable to a referral being sent to [facility]. SW called [facility] with referral and also faxed information. Renetta HERNANDEZ MSW
--- NOTE | 2020-04-21 12:34 | PCM.PN.HOSP ---
Patient Problems: Active and Suspected Problems (Last Reviewed 01/09/20 @ 11:16 by PA. SUSI Ba) Diabetic infection of left foot (Acute) Paroxysmal atrial fibrillation with RVR (Acute) Lactic acidosis (Acute) Severe sepsis (Acute) Elevated serum creatinine (Acute) Hypotension (Acute) Subjective: Doing well, no issues overnight. Denies any chest pain or shortness of breath. Vitals/I&O's: Vital Signs Temp Pulse Resp BP Pulse Ox 98.1 F 77 22 H 107/75 99 04/21/20 12:00 04/21/20 12:00 04/21/20 12:00 04/21/20 12:00 04/21/20 12:00 Oxygen Flow Rate (L/min) 2 Oxygen Delivery Method Room Air Weight: 188 lb 4.396 oz Body Mass Index (BMI) 31.7 Finger Stick Blood Glucose 394 Intake and Output for Last 24 Hours 04/19/20 04/20/20 04/21/20 23:59 23:59 23:59 Intake Total 4558.08 / 4558.08 3010.93 / 3010.93 2490.01 / 2490.01 Output Total 225 / 375 625 / 675 150 / 150 Balance 4333.08 / 4183.08 2385.93 / 2335.93 2340.01 / 2340.01 General: Alert, Oriented x3, Cooperative, No apparent distress HEENT: Atraumatic, PERRLA, EOMI, Normocephalic Oral: Moist Mucosa Neck: Supple, No JVD Lungs: Clear to auscultation, Normal air movement, No rhonchi, No wheeze, No rales, Diminished Cardiovascular: Regular Rhythm, Normal S1, Normal S2, No murmurs, Tachycardic Abdomen: Soft, Non Tender, Non-Distended, No Hepato-splenomegaly Extremities: Trace pitting edema, Capillary Refill Less than 3 Seconds Skin: - - Cellulitis extending up to the mid of her left calf, there is a diabetic ulcer approximately 2 cm in diameter on her left medial foot no drainage Neurological: Neuro grossly intact, Sensory exam intact to light touch and pain Psych/Mental Status: Normal Affect, Appropriate Microbiology Past 72 Hours 04/20/20 12:30 Wound - Left Foot Gram Stain - Preliminary 04/20/20 12:30 Wound - Left Foot Wound Culture - Preliminary Staphylococcus aureus Gram positive organism Laboratory Results 04/20/20 12:30: S.aureus Protein A PCR POSITIVE H, MRSA (PCR) Negative 04/20/20 16:18: POC Glucose 152 H 04/20/20 21:46: POC Glucose 148 H 04/21/20 04:20: WBC 11.7 H, RBC 4.10 L, Hgb 11.4 L, Hct 35.9 L, MCV 87.6, MCH 27.8, MCHC 31.8 L, RDW Std Deviation 58.6 H, RDW Coeff of Blanca 19.0 H, Plt Count 271, MPV 9.7, Immature Gran % (Auto) 2.300 H, Neut % (Auto) 79.4 H, Lymph % (Auto) 10.6 L, [place] % (Auto) 7.3, Eos % (Auto) 0.1, Baso % (Auto) 0.3, Absolute Neuts (auto) 9.3 H, Absolute Lymphs (auto) 1.24, Nucleated RBC % 0.3 04/21/20 04:20: PT 23.9 H, INR 2.2 04/21/20 04:20: Sodium 133 L, Potassium 4.2, Chloride 104, Carbon Dioxide 21.0, Anion Gap 8, BUN 57 H, Creatinine 1.66 H, Estim Creat Clear Calc 20.67, Est GFR (MDRD) Af Amer 38 L, Est GFR (MDRD) Non-Af 31 L, BUN/Creatinine Ratio 34.3 H, Glucose 104, Calcium 7.4 L 04/21/20 07:58: POC Glucose 138 H 04/21/20 11:37: POC Glucose 120 H Current Medications Acetaminophen (Tylenol) 650 mg PO Q6H PRN PRN PRN Reason: Pain Score 1-10/Temp > 100.7 F Last Admin: 04/21/20 08:19 Dose: 650 mg Documented by: Apixaban (Eliquis) 5 mg PO BID [facility] Dextrose (D50w Syringe) 0 gm IV X1 PRN; Protocol PRN Reason: Hypoglycemia Glucagon () 1 mg IM .X1 PRN PRN Reason: Hypoglycemia Sodium Chloride () 1,000 mls @ 75 mls/hr IV .[id number] DONNIE Last Infusion: 04/21/20 11:41 Dose: 75 mls/hr Documented by: Piperacillin Sod/Tazobactam (Sod 3.375 gm/ Sodium Chloride) 50 mls @ 12.5 mls/hr IV Q8 DONNIE Last Infusion: 04/21/20 10:13 Dose: Infused Documented by: Vancomycin IV Pharmacy to Dose (1 ea/ Sodium Chloride) 500 mls @ 250 mls/hr IV PRN PRN; Protocol PRN Reason: Rx to Dose Vancomycin HCl 750 mg/ Sodium (Chloride) 265 mls @ 250 mls/hr IV Q24H DONNIE Last Infusion: 04/20/20 18:10 Dose: Infused Documented by: Sodium Chloride () 250 mls @ 15 mls/hr IV .[id number] PRN PRN Reason: Saline Flush Last Infusion: 04/20/20 05:35 Dose: 0 mls/hr Documented by: Sodium Chloride () 250 mls @ 15 mls/hr IV .[id number] PRN PRN Reason: Additional IVPB Infusion Amiodarone HCl 360 mg/ (Dextrose) 200 mls @ 16.667 mls/hr CONT INF .Q12H [facility] Last Infusion: 04/21/20 02:00 Dose: 0.5 mg/min, 16.7 mls/hr Documented by: Insulin Glargine (Lantus (Bkc)) 10 units SC QHS [facility] Last Admin: 04/20/20 21:47 Dose: 10 u Documented by: Insulin Human Lispro (Humalog Kwikpen (Bkc)) 0 unit SC ACHS [facility]; Protocol Last Admin: 04/21/20 11:38 Dose: Not Given Documented by: Insulin Human Lispro (Humalog Kwikpen (Bkc)) 5 unit SC TIDAC [facility] Last Admin: 04/21/20 11:39 Dose: Not Given Documented by: Nystatin (Mycostatin Powder) 1 applic TOPICAL BID [facility]; Protocol Last Admin: 04/21/20 11:37 Dose: 1 applicatio Documented by: Ondansetron HCl (Zofran) 4 mg IV Q8H PRN PRN PRN Reason: NAUSEA/VOMITING Sodium Chloride () 10 - 40 ml IV UD PRN PRN Reason: SALINE FLUSH Last Admin: 04/20/20 05:36 Dose: 10 ml Documented by: STROKE Vital Signs/Narrative: Vital Signs Temp Pulse Resp BP BP Pulse Ox 04/21/20 12:00 98.1 F 77 22 H 107/75 99 04/21/20 11:53 85 04/21/20 11:00 81 25 H 91/66 99 04/21/20 10:00 98 23 H 96/60 98 04/21/20 09:30 73 24 H 91/50 L 98 04/21/20 09:00 97 21 H 81/60 L 98 Medical Necessity - Tobacco Use Smoking Status: Never smoker Assessment/Plan All Active Problems (Last Reviewed 01/09/20 @ 11:16 by PA. SUSI Ba) Diabetic infection of left foot (Acute) Paroxysmal atrial fibrillation with RVR (Acute) Lactic acidosis (Acute) Severe sepsis (Acute) Elevated serum creatinine (Acute) Hypotension (Acute) Bronchitis (Acute) Ulcer of right lower extremity with fat layer exposed (Resolved) Ulcer of left lower extremity with fat layer exposed (Resolved) Chronic ulcer of left foot with fat layer exposed (Resolved) Chronic ulcer of right great toe with fat layer exposed (Resolved) Ulcer of left lower extremity with fat layer exposed (Resolved) Ulcer of right lower extremity with fat layer exposed (Resolved) Venous ulcers of both lower extremities (Resolved) Hyponatremia (Resolved) 1. Severe sepsis secondary to diabetic foot ulcer with cellulitis/Charcot foot -She is supposed to have surgery tomorrow with podiatry because of her Charcot foot, will consult podiatry -She has not showered over a week and has not been following with the wound care center -Leukocytosis of 11.7, and tachycardia likely related to her A. fib -Continue with vancomycin and Zosyn given the polymicrobial nature of diabetic ulcers -Lactate greater than 2.2 consistent with severe sepsis therefore she was placed in the ICU with an enamel machine operator consult -Crease her IV fluids to 75 cc/h -She had an echo in 2019 with an EF of 65% and concentric left ventricular hypertrophy with pulmonary hypertension and of our RVSP of 57 mmHg and diastolic dysfunction -MRI with no osteomyelitis, arterial studies show very poor blood flow to her lower extremities 2. Paroxysmal A. fib/pulmonary hypertension/chronic diastolic CHF/HTN/HLD -Can restart her Eliquis since there does not appear to be any surgical intervention at this time -We will hold her Lasix given her severe sepsis -We will hold her lisinopril given her renal dysfunction and her soft blood pressures -Can continue with Lipitor once dosage is confirmed -She was started on amiodarone, she was given a dose of Lopressor today which did help her heart rate but it did drop her pressure little bit. She did not notice this drop in blood pressure -Cardiology was consulted to assist in management 3. DM 2 with diabetic foot ulcer and Charcot foot -We will hold her oral hypoglycemics and transition her to a sliding scale insulin -Continue with Lantus 10 units at night -Accu-Cheks AC at bedtime DVT: Therapeutic INR Inpatient E&M: [id number] Subs Hosp L2
--- NOTE | 2020-04-21 14:17 | CASEMGMT ---
SILVIO spoke with Rosanne at [facility] and they can accept patient. SW will let patient know. Plan: [facility] at d/c. Renetta MCGHEE
[2020-04-21 16:26] LABS: Bedside Glucose 71 mg/dL (70-110)
--- NOTE | 2020-04-21 16:59 | PCM.PROGNOTE ---
Patient Problems: Active and Suspected Problems (Last Reviewed 01/09/20 @ 11:16 by PA. SUSI Ba) Diabetic infection of left foot (Acute) Paroxysmal atrial fibrillation with RVR (Acute) Lactic acidosis (Acute) Severe sepsis (Acute) Elevated serum creatinine (Acute) Hypotension (Acute) Subjective: I spoke with patient today. She relates she is tired. She had MRI, no evidence of osteomyelitis. - Physical Exam Vitals/I&O's: Vital Signs Temp Pulse Resp BP Pulse Ox 98.1 F 93 20 H 91/67 92 04/21/20 12:00 04/21/20 16:00 04/21/20 15:00 04/21/20 15:00 04/21/20 15:00 Oxygen Flow Rate (L/min) 2 Oxygen Delivery Method Room Air Weight: 85.4 kg Body Mass Index (BMI) 31.7 Finger Stick Blood Glucose 394 Intake and Output for Last 24 Hours 04/19/20 04/20/20 04/21/20 23:59 23:59 23:59 Intake Total 4558.08 / 4558.08 3010.93 / 3010.93 3121.22 / 3121.22 Output Total 225 / 375 625 / 675 150 / 150 Balance 4333.08 / 4183.08 2385.93 / 2335.93 2971.22 / 2971.22 General: Alert Skin: - - Reviewed wound photo left foot: s/p debridement left foot ulceration with healthy viable tissue, margins intact, less cellulitis. Microbiology Past 72 Hours 04/20/20 12:30 Wound - Left Foot Gram Stain - Final 04/20/20 12:30 Wound - Left Foot Wound Culture - Preliminary Staphylococcus aureus Gram positive organism 04/19/20 11:43 Blood Culture (Wb) - Left Hand Blood Culture - Preliminary No growth in 48 hours. 04/19/20 11:20 Blood Culture (Wb) - Anticubital Right Blood Culture - Preliminary No growth in 48 hours. Laboratory Results 04/20/20 21:46: POC Glucose 148 H 04/21/20 04:20: WBC 11.7 H, RBC 4.10 L, Hgb 11.4 L, Hct 35.9 L, MCV 87.6, MCH 27.8, MCHC 31.8 L, RDW Std Deviation 58.6 H, RDW Coeff of Blanca 19.0 H, Plt Count 271, MPV 9.7, Immature Gran % (Auto) 2.300 H, Neut % (Auto) 79.4 H, Lymph % (Auto) 10.6 L, Coryell % (Auto) 7.3, Eos % (Auto) 0.1, Baso % (Auto) 0.3, Absolute Neuts (auto) 9.3 H, Absolute Lymphs (auto) 1.24, Nucleated RBC % 0.3 04/21/20 04:20: PT 23.9 H, INR 2.2 04/21/20 04:20: Sodium 133 L, Potassium 4.2, Chloride 104, Carbon Dioxide 21.0, Anion Gap 8, BUN 57 H, Creatinine 1.66 H, Estim Creat Clear Calc 20.67, Est GFR (MDRD) Af Amer 38 L, Est GFR (MDRD) Non-Af 31 L, BUN/Creatinine Ratio 34.3 H, Glucose 104, Calcium 7.4 L 04/21/20 07:58: POC Glucose 138 H 04/21/20 11:37: POC Glucose 120 H 04/21/20 16:05: POC Glucose 71 Current Medications Acetaminophen (Tylenol) 650 mg PO Q6H PRN PRN PRN Reason: Pain Score 1-10/Temp > 100.7 F Last Admin: 04/21/20 08:19 Dose: 650 mg Documented by: Apixaban (Eliquis) 5 mg PO BID [facility] Dextrose (D50w Syringe) 0 gm IV X1 PRN; Protocol PRN Reason: Hypoglycemia Glucagon () 1 mg IM .X1 PRN PRN Reason: Hypoglycemia Sodium Chloride () 1,000 mls @ 75 mls/hr IV .[id number] [facility] Last Infusion: 04/21/20 11:41 Dose: 75 mls/hr Documented by: Piperacillin Sod/Tazobactam (Sod 3.375 gm/ Sodium Chloride) 50 mls @ 12.5 mls/hr IV Q8 [facility] Last Admin: 04/21/20 13:15 Dose: 12.5 mls/hr Documented by: Vancomycin IV Pharmacy to Dose (1 ea/ Sodium Chloride) 500 mls @ 250 mls/hr IV PRN PRN; Protocol PRN Reason: Rx to Dose Vancomycin HCl 750 mg/ Sodium (Chloride) 265 mls @ 250 mls/hr IV Q24H DONNIE Last Infusion: 04/21/20 14:03 Dose: Infused Documented by: Sodium Chloride () 250 mls @ 15 mls/hr IV .[id number] PRN PRN Reason: Saline Flush Last Infusion: 04/20/20 05:35 Dose: 0 mls/hr Documented by: Sodium Chloride () 250 mls @ 15 mls/hr IV .[id number] PRN PRN Reason: Additional IVPB Infusion Amiodarone HCl 360 mg/ (Dextrose) 200 mls @ 16.667 mls/hr CONT INF .Q12H DONNIE Last Admin: 04/21/20 13:09 Dose: 0.5 mg/min, 16.7 mls/hr Documented by: Insulin Glargine (Lantus (Bkc)) 10 units SC QHS DONNIE Last Admin: 04/20/20 21:47 Dose: 10 u Documented by: Insulin Human Lispro (Humalog Kwikpen (Bkc)) 0 unit SC ACHS [facility]; Protocol Last Admin: 04/21/20 11:38 Dose: Not Given Documented by: Insulin Human Lispro (Humalog Kwikpen (Bkc)) 5 unit SC TIDAC [facility] Last Admin: 04/21/20 11:39 Dose: Not Given Documented by: Nystatin (Mycostatin Powder) 1 applic TOPICAL BID [facility]; Protocol Last Admin: 04/21/20 11:37 Dose: 1 applicatio Documented by: Ondansetron HCl (Zofran) 4 mg IV Q8H PRN PRN PRN Reason: NAUSEA/VOMITING Sodium Chloride () 10 - 40 ml IV UD PRN PRN Reason: SALINE FLUSH Last Admin: 04/20/20 05:36 Dose: 10 ml Documented by: Medical Necessity - Tobacco Use Smoking Status: Never smoker Assessment/Plan All Active Problems (Last Reviewed 01/09/20 @ 11:16 by USSI Castro) Diabetic infection of left foot (Acute) Paroxysmal atrial fibrillation with RVR (Acute) Lactic acidosis (Acute) Severe sepsis (Acute) Elevated serum creatinine (Acute) Hypotension (Acute) Bronchitis (Acute) Ulcer of right lower extremity with fat layer exposed (Resolved) Ulcer of left lower extremity with fat layer exposed (Resolved) Chronic ulcer of left foot with fat layer exposed (Resolved) Chronic ulcer of right great toe with fat layer exposed (Resolved) Ulcer of left lower extremity with fat layer exposed (Resolved) Ulcer of right lower extremity with fat layer exposed (Resolved) Venous ulcers of both lower extremities (Resolved) Hyponatremia (Resolved) Ulceration down to subcutaneous tissue left foot Cellulitis left lower extremity Charcot neuroarthropathy left foot PVD lower extremity Diabetes, RA, and multiple comorbidities Reviewed diagnostic data. Reviewed left foot MRI and no evidence of osteomyelitis. Clinically left foot improved from infection standpoint compared to yesterday. No plans for foot/ankle surgery at this time. We will plan to proceed with bracing, a CAM Walker was ordered for patient, and intermediate frame tender a custom AFO to brace foot/ankle and offload ulceration site. Patient is on Vanc and Zosyn, a culture had been obtained and finals pending. Wound care left foot: Change daily using Aquacel Ag and gauze, kerlix and silvia. No weightbearing left foot. Reviewed lower extremity arterial studies and noted to be PAD present, will consult vascular surgery for opinion. Patient planning to be discharged to nursing facility. Podiatry will continue to follow.
--- NOTE | 2020-04-21 17:13 | ADU_ITS ---
Reason For Study: Ulcer, PAD Right Velocities Left Velocities Ext. Iliac Artery, dist = 69.8 cm./sec. Ext Iliac Artery, dist = 71 cm./sec. Common Femoral Artery, mid = 28.9 cm./sec. Common Femoral Artery, mid = 50.1 cm./sec. Supf Femoral Artery, prox = 43.1 cm./sec. Supf. Femoral Artery, prox = 51.2 cm./sec. Supf Femoral Artery, mid = 30.8 cm./sec. Supf. Femoral Artery, mid = 45.7 cm./sec. Supf Femoral Artery, dist. = 33.9 cm./sec. Supf. Femoral Artery, dist = 61.9 cm./sec. Profunda Femoral Artery = 33.6 cm./sec. Profunda Femoral Artery = 68.8 cm./sec. Popliteal Artery, prox. = 18.4 cm./sec. Popliteal Artery, proximal, = 15.9 cm./sec. Popliteal Artery, mid = 63.3 cm./sec. Popliteal Artery, mid = 22 cm./sec. Popliteal Artery, dist = 38.4 cm./sec. Popliteal Artery, distal = 23 cm./sec. Post. Tibial Artery, prox = 40.9 cm./sec. Post. Tibial Artery, prox = 21.7 cm./sec. Post. Tibial Artery, mid = 38.3 cm./sec. Ant.Tibial Artery, prox = 21.5 cm./sec. Ant. Tibial Artery, prox = 12 cm./sec. Ant Tibial Artery, mid = 41.5 cm./sec. Ant. Tibial Artery, dist = 9 cm./sec. Unabe to demonstrate flow in mid VORTEX OPERATOR. Unabe to demonstrate flow in distal VORTEX OPERATOR. Uable to visualize Peroneal artery due to edema. Uable to visualize Peroneal artery due to edema. Distal calf veins not visualized due to bandages. Unable to demonstrate flow in mid DANIKA. Procedure Technically difficult and limited study due to pt body habitus and edema. Exam performed portable in ICU/CCU. Interpretation Summary 50 to 99% stenosis right distal superficial femoral artery 50 to 99% stenosis right popliteal artery Suspected occluded distal right posterior tibial artery Suspected occluded right mid anterior tibial artery Nonvisualized right peroneal artery 50 to 99% stenosis left popliteal artery Suspected occlusion left mid posterior tibial artery Left peroneal artery not visualized Distal left calf vessels not visualized secondary to dressings Technically difficult examination secondary to body habitus and edema Ordering Physician: Ollie Ashley Referring Physician: Chad Chang Performed By: Inga Raines RVT
[2020-04-21] MEDS: Juven (unflavored) Packet 1 PACKET PO (17:41)
--- NOTE | 2020-04-21 18:11 | CON.PCM_ITS ---
Problem List (1) Paroxysmal atrial fibrillation with RVR Status: Acute (2) History of aortic valve replacement with bioprosthetic valve Status: Chronic Comment: 23 mm Saint to trifecta GT valve in June 2016 at [facility]; (3) Mixed hyperlipidemia Status: Chronic (4) Hypertension Status: Chronic (5) Moderate pulmonary arterial systolic hypertension Status: Chronic (6) Peripheral vascular disease Status: Suspected (7) Charcot foot due to diabetes mellitus Status: Chronic (8) Diabetic infection of left foot Status: Acute Reason for Consult Date of Consultation: 04/21/20 History of Present Illness: The patient is a 84 year old white female who presents to the office today for a cardiovascular outpatient follow-up with a history of severe aortic valve stenosis with aortic valve replacement in June 2016 with a 23 mm Saint Tomy Trifecta GT valve, paroxysmal atrial fibrillation, hyperlipidemia, pulmonary hypertension, diabetes mellitus, and diabetic related Charcot foot, who is referred for evaluation of atrial fibrillation with rapid ventricular response. She has been undergoing inpatient evaluation and care of her diabetic related Charcot foot with concerns of sepsis syndrome with podiatry involvement with antibiotic therapy and surgical related procedures. She was noted to have atrial fibrillation which developed rapid ventricular response. She does not appear to complain of ongoing chest discomfort at this time nor did she have any acute shortness of breath/dyspnea. There was no report of ongoing near syncope or syncope. She is in the ICU. Her cardiac rate and rhythm are being monitored. She was placed on medical therapy with rate limiting agents which she did not tolerate well based upon low blood pressures. She was placed on medical management with IV amiodarone which appears to have assisted with bringing her heart rate under better control. Her anticoagulation status has been adjusted off and on based upon her need for other procedures. She did have troponin I level which was considered negative. Her ECG demonstrated atrial fibrillation with no acute ECG changes. A chest x-ray from 04-19-2020 was reported as demonstrating chronic blunting of the right costophrenic angle. She is undergone previous noninvasive and invasive cardiovascular procedures as noted below. [] Past Medical History Allergies/Adverse Reactions: Allergies No Known Allergies Allergy (Verified 04/19/20 09:28) Home Medications: Ambulatory Orders Medication Instructions Recorded metformin 1,000 mg tablet 1,000 mg PO BREAKFAST 0 Days 03/15/18 Atorvastatin Calcium 20 mg PO DAILY 07/08/18 Lisinopril [Zestril] 5 mg PO DAILY 07/08/18 Tolterodine Tartrate [Tolterodine 4 mg PO DAILY 07/08/18 Tartrate ER] Acetaminophen [Tylenol] 1,000 mg PO Q6H PRN PRN tab 08/06/18 apixaban 5 mg tablet 5 mg PO BID #180 tab 11/12/18 furosemide 20 mg tablet 20 mg PO .COMPLEX 01/09/20 potassium chloride 20 mEq 20 meq PO .COMPLEX 01/09/20 tablet,extended release Albuterol Aerosols [Ventolin 2.5 mg INHALATION Q4H PRN PRN 04/20/20 Aerosols] Albuterol Inhaler [Ventolin Hfa 2 puff INHALATION Q4H PRN PRN 04/20/20 (SP)] Folic Acid 1 mg PO DAILY 04/20/20 Glimepiride [Amaryl] 4 mg PO DAILY 04/20/20 Ipratropium/Albuterol Sulfate 3 ml INHALATION Q6H.RT PRN 04/20/20 [Duoneb] Iron Polysaccharide Complex 150 mg PO DAILYCM 04/20/20 [Ferrex 150] Linagliptin [Tradjenta] 5 mg PO DAILY 04/20/20 Metformin HCl [Metformin HCl ER] 500 mg PO DINNER 04/20/20 Methotrexate Sodium [Methotrexate] 12.5 mg PO QWEEK 04/20/20 Omeprazole 20 mg PO DAILY 04/20/20 Pioglitazone [Actos] 30 mg PO DAILY@0800 04/20/20 Past Medical History (Chronic Problems): Chronic Problems (Last Reviewed 01/09/20 @ 11:16 by PA. SUSI Ba) Leg swelling (Chronic) Leg edema (Chronic) Rheumatoid arthritis (Chronic) Debility (Chronic) Overweight (BMI 25.0-29.9) (Chronic) CHF (congestive heart failure) (Chronic) Hypertension (Chronic) Hiatal hernia (Chronic) Dependent edema (Chronic) Chronic venous insufficiency (Chronic) Restless legs (Chronic) Peripheral arterial disease (Chronic) Charcot foot due to diabetes mellitus (Chronic) Mixed hyperlipidemia (Chronic) Moderate pulmonary arterial systolic hypertension (Chronic) LVH (left ventricular hypertrophy) (Chronic) Biatrial enlargement (Chronic) Chronic anticoagulation (Chronic) Chronic renal failure, stage 3 (moderate) (Chronic) Apixaban Overactive bladder (Chronic) Tinea unguium (Chronic) Hallux valgus (acquired), right foot (Chronic) Nonrheumatic mitral (valve) insufficiency (Chronic) Non-rheumatic tricuspid valve insufficiency (Chronic) Anxiety and depression (Chronic) Venous insufficiency of both lower extremities (Chronic) Type 2 diabetes mellitus (Chronic) Uncontrolled hemoglobin A1c on 08/18/2018 is 10.4 Paroxysmal atrial fibrillation (Chronic) History of aortic valve replacement with bioprosthetic valve (Chronic ~06/20/16) 23 mm Saint to trifecta GT valve in June 2016 at [facility]; Pulmonary hypertension (Chronic) Surgical History: - - Aortic valve replacement with bioprosthetic valve. Bilateral bunionectomy. Bilateral total knee replacement. The patient is a G0, P0 Ab0. 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 SUSI Ba) Father CAD (coronary artery disease) Mother CAD (coronary artery disease) History Items: Dementia, Heart Disease Maternal Family History: Family History (Last Reviewed 01/09/20 @ 11:16 by SUSI Castro) Father CAD (coronary artery disease) Mother CAD (coronary artery disease) History Items: Heart Disease Smoking Status: Never smoker Alcohol: None Drugs: None Review of Systems - Review of Systems General: Reports: Weakness. Denies: Fever, Fatigue, Night Sweats Cardiovascular: Reports: Shortness of Breath. Denies: Chest Discomfort, Orthopnea, PND, Peripheral Edema, Palpitations, Lightheadedness, Dizziness, Near Syncope, Syncope Respiratory: Denies: Cough, Sputum Production, Hemoptysis Gastrointestinal: Denies: Hematemesis, Hematochezia, Melena Genitourinary: Denies: Dysuria, Hematuria Skin: Denies: Rash Subjectve: This is an 84-year-old fragile appearing lady who appears to be resting comfortably at the moment in no acute distress. Objective: Vital Signs Temp Pulse Resp BP Pulse Ox 98.1 F 93 20 H 91/67 92 04/21/20 12:00 04/21/20 16:00 04/21/20 15:00 04/21/20 15:00 04/21/20 15:00 Oxygen Flow Rate (L/min) 2 Oxygen Delivery Method Room Air Weight: 188 lb 4.396 oz Body Mass Index (BMI) 31.7 Finger Stick Blood Glucose 394 Intake and Output for Last 24 Hours 04/19/20 04/20/20 04/21/20 23:59 23:59 23:59 Intake Total 4558.08 / 4558.08 3010.93 / 3010.93 3171.22 / 3171.22 Output Total 225 / 375 625 / 675 150 / 150 Balance 4333.08 / 4183.08 2385.93 / 2335.93 3021.22 / 3021.22 General: Awake, Alert, Oriented x 3, Cooperative, Ill Appearing HEENT: Atraumatic, Normocephalic, PERRL, EOMI, Sclera Non Icteric Neck: Supple, Good ROM, No JVD Lungs: Diminished Right Base Cardiovascular: Irregular Rhythm, Normal S1, Normal S2 Murmur Murmur: Grade 2/6, Mid Systolic, LLSB, LVOT, Sternal Notch Abdomen: Bowel Sounds Present, Soft Extremities: - - Left foot: Surgical dressing Psych/Mental Status: Appropriate 04/21/20 04:20: WBC 11.7 H, RBC 4.10 L, Hgb 11.4 L, Hct 35.9 L, MCV 87.6, MCH 27.8, MCHC 31.8 L, Plt Count 271, MPV 9.7, Immature Gran % (Auto) 2.300 H, Neut % (Auto) 79.4 H, Lymph % (Auto) 10.6 L, Saline % (Auto) 7.3, Eos % (Auto) 0.1, Baso % (Auto) 0.3, Absolute Neuts (auto) 9.3 H, Nucleated RBC % 0.3 04/21/20 04:20: PT 23.9 H, INR 2.2 04/21/20 04:20: Sodium 133 L, Potassium 4.2, Chloride 104, Carbon Dioxide 21.0, Anion Gap 8, BUN 57 H, Creatinine 1.66 H, Est GFR (MDRD) Af Amer 38 L, Est GFR (MDRD) Non-Af 31 L, BUN/Creatinine Ratio 34.3 H, Glucose 104, Calcium 7.4 L Rhythm: Atrial fibrillation EKG: Atrial fibrillation Echocardiogram from 08/17/2018: Interpretation Summary Left ventricular systolic function is normal. The estimated ejection fraction is 65 %. Post operative septal motion. Moderate concentric left ventricular hypertrophy. The left atrium is severely enlarged. The right atrium is mildly enlarged. There is severe mitral annular calcification. Extension of the mitral annular calcification onto the mitral valve apparatus. Mild diffuse mitral valve thickening. Mild focal mitral valve calcification of the anterior leaflet. Moderate (2+) mitral valve insufficiency. Mild diffuse thickening of the tricuspid valve. Moderately severe (3+) tricuspid valve insufficiency. Stable appearing bioprosthetic aortic valve apparatus. Calcified aortic root. Right ventricular systolic pressure estimated to be 49 mmHg. There is evidence of diastolic dysfunction. Stress test from 08/23/2016: IMPRESSION: 1. Technically inadequate (percent predicted maximum heart rate less than 85%) exercise tolerance test. 2. Peak exercise ECG with somatic/motion artifact with no obvious ECG changes. 3. Diminished functional capacity. Cardiac catheterization: 05/09/2016 Final impression: 1. Elevated left ventricular end-diastolic pressure compatible decreased*compliance 2. Secondary pulmonary hypertension 3. Oxygen saturation: No obvious evidence of intracardiac shunting phenomena 4. Left ventricle: A. Normal left ventricular size, wall motion, and systolic function B. Estimated LVEF is 65% 5. Left main coronary artery: A. Angiographically normal 6. Left anterior descending coronary artery: A. Minimal luminal irregularities 7. Left circumflex coronary artery: A. Proximal mild calcification B. OM1: Mid 10-25% smooth eccentric appearing stenosis 8. Right coronary artery: A. Large dominant vessel B. Diffuse minimal luminal irregularities 9. Aortic valve: A. Calcified; restricted; stenotic-severe to critical 10. Aortic root: A. Calcified 11: Mitral valve annulus: A. Mitral annular calcification-severe 12. Mitral valve: A. Restricted; stenotic-mild to moderate Cardiac surgery: [facility]: 06/20/[address] Tomy Trifecta GT bioprosthetic valve: aortic position CXR: As noted above: Please see official report Assessment/Plan 1. Atrial fibrillation The patient has a history of atrial fibrillation. At the present time she will need to continue attempts at rate control therapy. At the moment this includes her IV amiodarone. Her low blood pressure makes it challenging to add additional agents such as beta-blockers or calcium channel antagonist. She may need other agents such as digitalis if her clinical course, renal function, allow. She will need to continue her anticoagulant therapy as she is able to based upon her other conditions and surgical procedures, etc. 2. 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 She will need to continue AHA antibiotic prophylaxis. She can be followed by history, exam, and echocardiograms as deemed appropriate. 3. Hyperlipidemia She will continue risk factor modification medical therapy as deemed appropriate. 4. Hypertension Her blood pressure is low at this time. Concerned this may be secondary to her sepsis syndrome. She is avoiding medications would lower her blood pressure. She may need additional volume assistance if tolerated to support her blood pressure. If she cannot tolerate additional volume to support her blood pressure then she may need to be considered for IV vasopressor agents. 5. Pulmonary hypertension Her previous noninvasive and invasive studies are noted. This can be reassessed with a transthoracic echocardiogram. She will continue medical management/support as best as possible. 6. Peripheral vascular disease She has been diagnosed with peripheral vascular disease. This may impacting her healing process. Podiatry has requested additional input from peripheral vascular surgery. 7. Diabetes mellitus related Charcot foot/infection She will continue evaluation care by internal medicine as well as podiatry. Comment: The patient's case has been discussed and reviewed with the patient. This note was generated using a voice recognition system and there may be incorrect words, spelling or punctuation that were not noted when reviewing the office note prior to saving.
--- NOTE | 2020-04-21 18:27 | ECHOD_ITS ---
Reason For Study: A. fib Procedure This was a 2D Doppler, Color Flow transthoracic echocardiogram. The study was technically difficult. Exam performed portable in ICU/CCU. Left Ventricle Normal LV size. D shaped septum in systole and diastole. Apical false tendon noted. Moderate global left ventricular systolic dysfunction. The estimated ejection fraction is 30 %. Unable to assess diastolic dysfunction. Mid-Anterior : Hypokinetic. Mid-Lateral : Hypokinetic. Mid-Posterior: Hypokinetic. Mid-Inferior: Hypokinetic. Mid-inferoseptal : Hypokinetic. Mid-anteroseptal : Hypokinetic. [place] : Hypokinetic. Right Ventricle Severely dilated right ventricle. Mild to moderate global right ventricular systolic dysfunction. Atria The left atrium is severely enlarged. The right atrium is severely enlarged. No doppler evidence for ASD. Mitral Valve There is severe mitral annular calcification. Extension of the mitral annular calcification onto the mitral valve leaflets. Mild-Moderate (1-2+) mitral valve insufficiency. Tricuspid Valve Poor coaptation of the tricuspic valve. Moderately severe (3+) tricuspid valve insufficiency. Right ventricular systolic pressure estimated to be 33 mmHg. Aortic Valve Moderate focal aortic valve calcification. Mild aortic stenosis. Stable appearing bioprosthetic aortic valve apparatus. Pulmonic Valve Normal pulmonic valve. Trivial pulmonic valve insufficiency. Great Vessels Normal sized aortic root. Pericardium/Pleural No pericardial effusion. MMode/2D Measurements & Calculations LVIDd: 3.7 cm IVSd: 1.2 cm LVOT diam: 2.0 cm LVIDs: 3.3 cm LVPWd: 1.2 cm LVOT area: 3.1 cm2 RVDd: 4.2 cm FS: 10.6 % Ao root diam: 3.7 cm LAV(MOD-bp): 86.4 ml LA A4 area: 25.5 cm2 LAV(MOD-bp) Indexed: 46.4 ml/m2 LAV(MOD-sp2): 84.0 ml LAV(MOD-sp4): 70.1 ml LA dimension(2D): 4.9 cm RA A4 area: 34.6 cm2 Doppler Measurements & Calculations MV E max melinda: 77.5 cm/sec Ao V2 max: 168.3 cm/sec LV V1 max: 103.5 cm/sec Ao max P.4 mmHg LV V1 max P.4 mmHg Ao V2 mean: 118.4 cm/sec LV V1 mean P.3 mmHg Ao mean P.2 mmHg LV V1 mean: 69.9 cm/sec Ao V2 VTI: 27.2 cm LV V1 VTI: 16.2 cm RUBEN(I,D): 1.8 cm2 RUBEN(V,D): 1.9 cm2 SV(LVOT): 49.8 ml PA V2 max: 49.8 cm/sec TR max melinda: 211.9 cm/sec TR max P.0 mmHg Interpretation Summary The study was technically difficult. Moderate global left ventricular systolic dysfunction. The estimated ejection fraction is 30 %. D shaped septum in systole and diastole. Apical false tendon noted. Severely dilated right ventricle. Mild to moderate global right ventricular systolic dysfunction. The left atrium is severely enlarged. The right atrium is severely enlarged. There is severe mitral annular calcification. Extension of the mitral annular calcification onto the mitral valve leaflets. Mild-Moderate (1-2+) mitral valve insufficiency. Poor coaptation of the tricuspic valve. Moderately severe (3+) tricuspid valve insufficiency. Stable appearing bioprosthetic aortic valve apparatus. Moderate focal aortic valve calcification. Mild aortic stenosis. Trivial pulmonic valve insufficiency. Right ventricular systolic pressure estimated to be 33 mmHg. Unable to assess diastolic dysfunction. Ordering Physician: Jose Rose Referring Physician: Chad Chang Performed By: Brittany Baeza RDCS
[2020-04-21] MEDS: APIXABAN 5 MG TABLET PO (19:57)
[2020-04-21] MEDS: 0.9% Normal Saline 1,000 ML 75 ML IV (20:23)
[2020-04-21 22:35] LABS: Bedside Glucose 111 mg/dL (70-110)
[2020-04-21] MEDS: Furosemide 20 MG/2 ML VIAL IV (23:59)
[2020-04-22] VITALS (30 sets, daily range): BP systolic 76–136; BP diastolic 31–111; PULSE 72–123; RESP 16–24; TEMP 36.3; O2SAT 90–100
--- NOTE | 2020-04-22 00:57 | RAD_ITS ---
STUDY: X-RAY CHEST REASON FOR EXAM: Female, 84 years old. Increased shortness of breath. Wheezing. TECHNIQUE: AP portable chest. COMPARISON: April 19, 2020. November 10, 2018. FINDINGS: Elevated right hemidiaphragm unchanged. There is now patchy opacity in both lung bases right greater than left. A small right pleural effusion cannot be excluded. No pneumothorax. There is borderline cardiomegaly unchanged. Sternal wires are present. Prosthetic cardiac valve. Normal mediastinum and pito. Normal visualized pulmonary arteries. Normal visualized aortic arch and descending thoracic aorta. Normal visualized thoracic spine. Normal visualized ribs, clavicles, and shoulders. There is no demonstrated abnormality of the visualized soft tissue structures of the upper abdomen. RAD/Chest 1 View (Portable) IMPRESSION: Probable new small right pleural effusion. New patchy bibasilar densities compatible with subsegmental atelectasis or pneumonia. Electronically Signed: Guicho Smith MD at 2:32 EDT , Service support ,
[2020-04-22] MEDS: Amiodarone 360 MG in Dextrose 5% Viaflo Bag 192.8 ML 16.7 MG CONT INF (01:11)
[2020-04-22] MEDS: Furosemide 40 MG/4 ML Vial IV (01:39)
--- NOTE | 2020-04-22 04:54 | EKG12_ITS ---
Test Reason : Blood Pressure : / mmHG Vent. Rate : 098 BPM Atrial Rate : 122 BPM P-R Int : 000 ms QRS Dur : 102 ms QT Int : 380 ms P-R-T Axes : 000 109 -25 degrees QTc Int : 485 ms Atrial fibrillation with premature ventricular or aberrantly conducted complexes Low voltage QRS Lateral infarct , age undetermined Abnormal ECG When compared with ECG of 22-APR-2020 04:54, MANUAL COMPARISON REQUIRED, DATA IS UNCONFIRMED Confirmed by SHANNAN SHANNON, LIANNA ([id number]), editorial specialist MELISSA CACERES ([id number]) on 05/03/2020 2:47:35 PM Referred By: Confirmed By:ELIE CAMPBELL MD
[2020-04-22 05:03] LABS: Absolute Lymphocyte Count 0.32 X10^3/uL (0.83-4.51); Absolute Neutrophil Count 14.4 X10^3/uL (2.0-7.7); Basophil# 0.06 X10^3/uL; Basophil% 0.4 % (0-1); Eosinophil# 0.07 X10^3/uL; Eosinophils% 0.4 % (0-5); Hematocrit 35.7 % (37-47); Lymphocyte # 0.32 X10^3/ul (4.0); Mean Corp Hgb Conc 30.8 g/dL (32-36); Mean Corpuscular Hgb 27.9 pg (27.0-32.0); Mean Corpuscular Volume 90.6 fL (81-99); Mean Platelet Vol. 10.5 fl (6.2-12.0); Monocyte# 1.04 X10^3/uL; Monocyte% 6.3 % (0-10); NRBC Flagged by Analyzer 0.5 % (0-5); Neutrophil # 14.38 X10^3/uL (2.7-7.7); Neutrophil % 87.6 % (47-70); POSITIVE DIFFERENTIAL YES; Platelet Count 193 K/mm3 (150-450); RBC Distribution Width CV 19.3 % (11.6-14.6); RBC Distribution Width SD 62.2 fl (35.1-43.9); Red Blood Count 3.94 M/mm3 (4.2-5.4); White Blood Count 16.4 K/mm3 (4.4-11.0)
[2020-04-22 05:04] LABS: Differential Indicated SCAN CRITERIA MET
[2020-04-22 05:09] LABS: International Normalized Ratio 5.5
[2020-04-22 05:11] LABS: Prothrombin Time (Protime)PT. 50.3 SECONDS (11.7-14.9)
[2020-04-22 05:19] LABS: Differential Comment SCANNED
[2020-04-22 05:30] LABS: AST(SGOT) 7297 U/L (15-37); Alanine Aminotransfer ALT/SGPT 3207 U/L (13-56); Albumin, Serum 2.3 g/dL (3.2-5.0); Alkaline Phosphatase 185 U/L (45-117); Anion Gap 9 (5-15); BUN 62 mg/dL (7-18); BUN/Creat Ratio 33.2 RATIO (10-20); Bilirubin, Direct 1.02 mg/dL (0.00-0.30); Calcium,Total 6.7 mg/dL (8.5-10.1); Chloride 106 mmol/L (98-107); Creatinine, Serum 1.87 mg/dL (0.55-1.02); EST Glomerular Filtration Rate 27 mL/min (>60); Est Glom Filt Rate - Afr Amer 33 mL/min (>60); Estimated Creatinine Clearance 18.34 ml/min; Globulin 2.4 g/dL (2.2-4.2); Glucose 127 mg/dL (74-106); Potassium 4.8 mmol/L (3.5-5.1); Protein, Total 4.7 g/dL (6.4-8.2); Sodium Level 135 mmol/L (136-145)
--- NOTE | 2020-04-22 05:55 | EKG12_ITS ---
Test Reason : Blood Pressure : / mmHG Vent. Rate : 102 BPM Atrial Rate : 141 BPM P-R Int : 000 ms QRS Dur : 102 ms QT Int : 372 ms P-R-T Axes : 000 108 -20 degrees QTc Int : 484 ms Atrial fibrillation Low voltage QRS Lateral infarct , age undetermined Abnormal ECG When compared with ECG of 22-APR-2020 07:06, MANUAL COMPARISON REQUIRED, DATA IS UNCONFIRMED Confirmed by SHANNAN SHANNON, LIANNA ([id number]), manager editorial [address] ([id number]) on 04/30/2020 1:41:27 PM Referred By: Confirmed By:ELIE CAMPBELL MD
--- NOTE | 2020-04-22 07:06 | EKG12_ITS ---
Test Reason : AM EKG Blood Pressure : / mmHG Vent. Rate : 100 BPM Atrial Rate : 111 BPM P-R Int : 000 ms QRS Dur : 098 ms QT Int : 366 ms P-R-T Axes : 000 124 -33 degrees QTc Int : 472 ms Atrial fibrillation with premature ventricular or aberrantly conducted complexes Lateral infarct , age undetermined T wave abnormality, consider inferior ischemia or digitalis effect Abnormal ECG When compared with ECG of 19-APR-2020 10:20, MANUAL COMPARISON REQUIRED, DATA IS UNCONFIRMED Confirmed by SHANNAN SHANNON, LIANNA ([id number]), editorial assistant MELISSA CACERES ([id number]) on 05/03/2020 2:47:44 PM Referred By: ROCKY Confirmed By:ELIE CAMPBELL MD
--- NOTE | 2020-04-22 08:24 | US_ITS ---
STUDY: ABDOMINAL ULTRASOUND - RIGHT UPPER QUADRANT REASON FOR VISIT: Female, 84 years old ACUTE LIVER FAILURE TECHNIQUE: Ultrasound evaluation of the right upper quadrant was performed with real-time and static caro-scale imaging. TECHNICAL QUALITY: Limited. Examination limited due to the patient?s condition. COMPARISON: Comparison is made with prior study dated 12/15/2016. FINDINGS: Liver: The liver measures 17.7 cm. There is normal echogenicity of the liver. The bile ducts are within normal limits. There is hepatic color flow. The direction of portal flow is hepatopetal. There is no demonstrated mass lesion. Small amount of perihepatic fluid. Gallbladder: Normal distended gallbladder. The gallbladder wall is diffusely thickened and measures 9.7 mm. There is a negative sonographic Corral''s sign. There is pericholecystic fluid. There are no gallstones. Common Bile Duct (C.B.D.): The common bile duct measures 3.6 mm. Pancreas: Normal size of the head, body and tail of the pancreas. There is normal echogenicity of the pancreas. There is no demonstrated pancreatic mass or cyst. Right Kidney: Normal size of the right kidney. The right kidney measures 11.6 x 5.6 x 5.0 cm. Normal renal cortex. The right cortex measures 1.1 cm. There is no demonstrated renal mass or cyst. There is no right hydronephrosis. US/Liver IMPRESSION: Small amount of perihepatic fluid. Diffuse gallbladder wall thickening without pericholecystic fluid. Electronically Signed: Nestor Noonan, at 12:42 EDT , Service support ,
[2020-04-22] MEDS: Nystatin Powder 15gm Bottle 1 APPLIC TOPICAL ×2 (08:30→22:22)
--- NOTE | 2020-04-22 08:32 | PCM.PN.INT ---
Subjective: Patient did okay overnight. Patient did require NT suctioning secondary to pharyngeal secretions, but had good response. No bleeding has been noted overnight. Patient's heart rate has been better controlled. General: Alert, Oriented x3, Cooperative, No apparent distress, Well developed, Well nourished, - - Obese. Speaking in full sentences. HEENT: Atraumatic, PERRLA, EOMI, Normocephalic, - - No scleral icterus or injection noted Oral: Moist Mucosa, No Gingival or Mucosal Lesions/ Ulcerations Neck: Supple, No Nodes, Trachea Midline, JVD, Right Lungs: No rhonchi, No wheeze, Diminished, Rales - Right base, - - Symmetric expansion Cardiovascular: Normal S1, Normal S2, No murmurs, Irregular Rate, No rub noted, No Gallop Abdomen: Bowel Sounds Present, Soft, Non Tender, Non-Distended, Obese Extremities: No clubbing, No cyanosis, Edema Skin: - - No change compared to previous Musculoskeletal: No Tenderness to Palpation of Joints or Extremities Lymphatic: No Cervical, Supraclavicular, or Inguinal Adenopathy Neurological: Cranial nerves II-XII grossly intact, Neuro grossly intact, Motor Exam 5/5 strength throughout Psych/Mental Status: Alert and oriented to time, place, person, mood and affect Vital Signs Temp Pulse Resp BP Pulse Ox 36.3 C L 72 18 109/106 H 90 04/22/20 00:00 04/22/20 07:00 04/22/20 07:00 04/22/20 07:00 04/22/20 07:00 Oxygen Flow Rate (L/min) 3 Oxygen Delivery Method Nasal Cannula Weight: 92.4 kg Body Mass Index (BMI) 31.7 Finger Stick Blood Glucose 394 Intake and Output for Last 24 Hours 04/20/20 04/21/20 04/22/20 23:59 23:59 23:59 Intake Total 3010.93 / 3010.93 4034.62 / 4034.62 135.6 / 135.6 Output Total 625 / 675 450 / 450 0 / 0 Balance 2385.93 / 2335.93 3584.62 / 3584.62 135.6 / 135.6 Labs (Last 48 Hours) 04/20/20 04/20/20 04/20/20 11:07 12:30 16:18 WBC RBC Hgb Hct MCV MCH MCHC RDW Std Deviation RDW Coeff of Blanca Plt Count MPV Immature Gran % (Auto) Neut % (Auto) Lymph % (Auto) [place] % (Auto) Eos % (Auto) Baso % (Auto) Absolute Neuts (auto) Absolute Lymphs (auto) Nucleated RBC % Differential Comment PT INR Sodium Potassium Chloride Carbon Dioxide Anion Gap BUN Creatinine Estim Creat Clear Calc Est GFR (MDRD) Af Amer Est GFR (MDRD) Non-Af BUN/Creatinine Ratio Glucose Calcium Total Bilirubin Direct Bilirubin AST ALT Alkaline Phosphatase Total Protein Albumin Globulin S.aureus Protein A PCR POSITIVE H MRSA (PCR) Negative POC Glucose 171 H 152 H 04/20/20 04/21/20 04/21/20 21:46 04:20 04:20 WBC 11.7 H RBC 4.10 L Hgb 11.4 L Hct 35.9 L MCV 87.6 MCH 27.8 MCHC 31.8 L RDW Std Deviation 58.6 H RDW Coeff of Blanca 19.0 H Plt Count 271 MPV 9.7 Immature Gran % (Auto) 2.300 H Neut % (Auto) 79.4 H Lymph % (Auto) 10.6 L [place] % (Auto) 7.3 Eos % (Auto) 0.1 Baso % (Auto) 0.3 Absolute Neuts (auto) 9.3 H Absolute Lymphs (auto) 1.24 Nucleated RBC % 0.3 Differential Comment PT 23.9 H INR 2.2 Sodium Potassium Chloride Carbon Dioxide Anion Gap BUN Creatinine Estim Creat Clear Calc Est GFR (MDRD) Af Amer Est GFR (MDRD) Non-Af BUN/Creatinine Ratio Glucose Calcium Total Bilirubin Direct Bilirubin AST ALT Alkaline Phosphatase Total Protein Albumin Globulin S.aureus Protein A PCR MRSA (PCR) POC Glucose 148 H 04/21/20 04/21/20 04/21/20 04:20 07:58 11:37 WBC RBC Hgb Hct MCV MCH MCHC RDW Std Deviation RDW Coeff of Blanca Plt Count MPV Immature Gran % (Auto) Neut % (Auto) Lymph % (Auto) [place] % (Auto) Eos % (Auto) Baso % (Auto) Absolute Neuts (auto) Absolute Lymphs (auto) Nucleated RBC % Differential Comment PT INR Sodium 133 L Potassium 4.2 Chloride 104 Carbon Dioxide 21.0 Anion Gap 8 BUN 57 H Creatinine 1.66 H Estim Creat Clear Calc 20.67 Est GFR (MDRD) Af Amer 38 L Est GFR (MDRD) Non-Af 31 L BUN/Creatinine Ratio 34.3 H Glucose 104 Calcium 7.4 L Total Bilirubin Direct Bilirubin AST ALT Alkaline Phosphatase Total Protein Albumin Globulin S.aureus Protein A PCR MRSA (PCR) POC Glucose 138 H 120 H 04/21/20 04/21/20 04/22/20 16:05 22:05 04:20 WBC 16.4 H RBC 3.94 L Hgb 11.0 L Hct 35.7 L MCV 90.6 MCH 27.9 MCHC 30.8 L RDW Std Deviation 62.2 H RDW Coeff of Blanca 19.3 H Plt Count 193 MPV 10.5 Immature Gran % (Auto) 3.300 H Neut % (Auto) 87.6 H Lymph % (Auto) 2.0 L [place] % (Auto) 6.3 Eos % (Auto) 0.4 Baso % (Auto) 0.4 Absolute Neuts (auto) 14.4 H Absolute Lymphs (auto) 0.32 L Nucleated RBC % 0.5 Differential Comment SCANNED PT INR Sodium Potassium Chloride Carbon Dioxide Anion Gap BUN Creatinine Estim Creat Clear Calc Est GFR (MDRD) Af Amer Est GFR (MDRD) Non-Af BUN/Creatinine Ratio Glucose Calcium Total Bilirubin Direct Bilirubin AST ALT Alkaline Phosphatase Total Protein Albumin Globulin S.aureus Protein A PCR MRSA (PCR) POC Glucose 71 111 H 04/22/20 04/22/20 04:20 04:20 WBC RBC Hgb Hct MCV MCH MCHC RDW Std Deviation RDW Coeff of Blanca Plt Count MPV Immature Gran % (Auto) Neut % (Auto) Lymph % (Auto) [place] % (Auto) Eos % (Auto) Baso % (Auto) Absolute Neuts (auto) Absolute Lymphs (auto) Nucleated RBC % Differential Comment PT 50.3 H INR 5.5 H* Sodium 135 L Potassium 4.8 Chloride 106 Carbon Dioxide 20.0 L Anion Gap 9 BUN 62 H Creatinine 1.87 H Estim Creat Clear Calc 18.34 Est GFR (MDRD) Af Amer 33 L Est GFR (MDRD) Non-Af 27 L BUN/Creatinine Ratio 33.2 H Glucose 127 H Calcium 6.7 L Total Bilirubin 1.20 H Direct Bilirubin 1.02 H AST 7297 H ALT 3207 H Alkaline Phosphatase 185 H Total Protein 4.7 L Albumin 2.3 L Globulin 2.4 S.aureus Protein A PCR MRSA (PCR) POC Glucose Microbiology 04/20/20 12:30 Wound - Left Foot Gram Stain - Final 04/20/20 12:30 Wound - Left Foot Wound Culture - Preliminary Staphylococcus aureus Gram positive organism 04/20/20 12:30 Wound - Left Foot Anaerobic Culture - Preliminary Checking for anaerobes, further studies to follow. 04/19/20 11:43 Blood Culture (Wb) - Left Hand Blood Culture - Preliminary No growth in 48 hours. 04/19/20 11:20 Blood Culture (Wb) - Anticubital Right Blood Culture - Preliminary No growth in 48 hours. Clinical Impression(s) from Imaging Studies Chest X-Ray 04/22/20 00:57 IMPRESSION: Probable new small right pleural effusion. New patchy bibasilar densities compatible with subsegmental atelectasis or pneumonia. Electronically Signed: Guicho Smith MD at 2:32 EDT , Service support , Medical Necessity - Tobacco Use Smoking Status: Never smoker Assessment/Plan All Active Problems (Last Reviewed 01/09/20 @ 11:16 by PA. SUSI Ba) Diabetic infection of left foot (Acute) Paroxysmal atrial fibrillation with RVR (Acute) Lactic acidosis (Acute) Severe sepsis (Acute) Elevated serum creatinine (Acute) Hypotension (Acute) Bronchitis (Acute) Ulcer of right lower extremity with fat layer exposed (Resolved) Ulcer of left lower extremity with fat layer exposed (Resolved) Chronic ulcer of left foot with fat layer exposed (Resolved) Chronic ulcer of right great toe with fat layer exposed (Resolved) Ulcer of left lower extremity with fat layer exposed (Resolved) Ulcer of right lower extremity with fat layer exposed (Resolved) Venous ulcers of both lower extremities (Resolved) Hyponatremia (Resolved) RECOMMENDATIONS: 1. Obtain right upper quadrant ultrasound. Possible transition from amiodarone 2. Consider narrowing of antibiotic spectrum with MSSA from wound 3. Await cardiology input on amiodarone 4. Okay to leave the intensive care unit to telemetry from my perspective IMPRESSIONS: 1. Severe sepsis secondary to diabetic foot ulcer with Charcot foot Patient reportedly has poor hygiene habits at baseline, likely leading to infection. Patient with Charcot foot and elevated CRP was significant concern for osteomyelitis. Patient currently being treated with vancomycin and Zosyn, but wound culture is showing probable MSSA. Podiatry has been consulted and completed debridement with plans to address as an outpatient. Patient does have pulmonary hypertension, likely type II, at baseline so we will try to limit volume resuscitation. Marginal blood pressures limit ability to diurese aggressively 2. A. fib with RVR/chronic diastolic CHF Patient appears to have responded well to amiodarone bolus and drip from a rate perspective. May need to discontinue amiodarone from a hepatitis standpoint. Appreciate cardiology for long-term recommendations and optimization, especially given the need for possible surgery in the near future. Consider holding Lipitor in the near future given liver function studies 3. Diabetes mellitus type 2 leading to peripheral vascular disease, Charcot foot and diabetic foot ulcer Hold oral hypoglycemics given possibility of surgery and variable p.o. intake. Monitor with sliding scale insulin. Patient may need to be transitioned to insulin therapy for better control, but defer to endocrine as an outpatient. 4. Social concerns/pulmonary hypertension/hypertension/hyperlipidemia/advanced age/obesity Complicates care, management, recovery and prognosis. Case management to evaluate patient's living situation. Okay to continue with statin, but would hold hypertensive medications given problem #1. Obesity does complicate recovery from Charcot joint. 5. Acute hepatitis Exact etiology is unclear at this time. Recommend obtaining a right upper quadrant ultrasound and acute hepatitis panel. Other possible etiology would include drug-induced secondary to statin versus IV amiodarone. Patient is being followed by cardiology. Inpatient E&M: [id number] [facility] L[facility]
--- NOTE | 2020-04-22 08:41 | PN.CARD_ITS ---
Subjectve: The patient is awake and alert. She denies ongoing chest discomfort. She comments about being short of breath and dyspneic. Objective: Vital Signs Temp Pulse Resp BP Pulse Ox 97.4 F L 72 18 109/106 H 90 04/22/20 00:00 04/22/20 07:00 04/22/20 07:00 04/22/20 07:00 04/22/20 07:00 Oxygen Flow Rate (L/min) 3 Oxygen Delivery Method Nasal Cannula Weight: 203 lb 11.314 oz Body Mass Index (BMI) 31.7 Finger Stick Blood Glucose 394 Intake and Output for Last 24 Hours 04/20/20 04/21/20 04/22/20 23:59 23:59 23:59 Intake Total 3010.93 / 3010.93 4034.62 / 4034.62 1169.87 / 1169.87 Output Total 625 / 675 450 / 450 0 / 0 Balance 2385.93 / 2335.93 3584.62 / 3584.62 1169.87 / 1169.87 General: Awake, Alert, Oriented x 3, Cooperative, Ill Appearing HEENT: Atraumatic, Normocephalic, PERRL, EOMI Neck: No JVD Lungs: Rales - [place]col Bases Cardiovascular: Irregular Rhythm, Normal S1, Normal S2 Abdomen: Bowel Sounds Present, Soft Extremities: - - Left foot: Surgical wrap/Tommie wrap Psych/Mental Status: Depressed 04/22/20 04:20: WBC 16.4 H, RBC 3.94 L, Hgb 11.0 L, Hct 35.7 L, MCV 90.6, MCH 27.9, MCHC 30.8 L, Plt Count 193, MPV 10.5, Immature Gran % (Auto) 3.300 H, Neut % (Auto) 87.6 H, Lymph % (Auto) 2.0 L, [place] % (Auto) 6.3, Eos % (Auto) 0.4, Baso % (Auto) 0.4, Absolute Neuts (auto) 14.4 H, Nucleated RBC % 0.5 04/22/20 04:20: Sodium 135 L, Potassium 4.8, Chloride 106, Carbon Dioxide 20.0 L , Anion Gap 9, BUN 62 H, Creatinine 1.87 H, Est GFR (MDRD) Af Amer 33 L, Est GFR (MDRD) Non-Af 27 L, BUN/Creatinine Ratio 33.2 H, Glucose 127 H, Calcium 6.7 L, Total Bilirubin 1.20 H, Direct Bilirubin 1.02 H 04/22/20 04:20: PT 50.3 H, INR 5.5 H* Rhythm: Atrial fibrillation EKG: Atrial fibrillation; rightward axis; low voltage QRS; lateral my of indeterminate age cannot be excluded; nonspecific T wave abnormality; PVC ECHO: Pending CXR: Portable chest x-ray from 04-21-2020: Diminished inspiratory effort; increased pulmonary vascularity; possible infiltrates; possible pleural effusion; please see official report Medical Necessity - Tobacco Use Smoking Status: Never smoker Assessment/Plan 1. Atrial fibrillation The patient has a history of atrial fibrillation. At the present time she will need to continue attempts at rate control therapy. This has been with IV amiodarone therapy, however, this is now being placed on hold based upon her marked increase in her hepatic transaminase levels. Her low blood pressure makes it challenging to add additional agents such as beta-blockers or calcium channel antagonist. She may need other agents such as digitalis if her clinical course, renal function, allow. Also, based upon reevaluation of her anticoagulation status, with her INR being markedly elevated, her anticoagulant therapy has been placed on hold. 2. 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 She will need to continue AHA antibiotic prophylaxis. She can be followed by history, exam, and echocardiograms as deemed appropriate. 3. Hyperlipidemia She will continue risk factor modification medical therapy as deemed appropriate. 4. Hypertension Her blood pressure is low at this time. This may be secondary to her sepsis syndrome. She is avoiding medications would lower her blood pressure. 5. Pulmonary hypertension Her previous noninvasive and invasive studies are noted. This can be reassessed with a transthoracic echocardiogram. She will continue medical management/support as best as possible. 6. Peripheral vascular disease She has been diagnosed with peripheral vascular disease. This may impacting her healing process. Podiatry has requested additional input from peripheral vascular surgery. 7. Diabetes mellitus related Charcot foot/infection She will continue evaluation care by internal medicine as well as podiatry. 8. Hepatic dysfunction Based upon her initial laboratory studies her hepatic studies/INR were repeated. They are markedly elevated. Her albumin and protein levels are low. The etiology is unclear at the moment. At the moment her medications are being adjusted to minimize any adverse interaction with her underlying hepatic system. This includes discontinuation of her IV amiodarone therapy. Also includes discontinuation of her anticoagulant therapy. However she does need to be evaluated for other etiologies that may be contributing to these changes. Thus she will undergo further evaluation and care per internal medicine which will include an abdominal ultrasound. She does need to be monitored for any concerns which could lead to sepsis related event such as DIC. She may need transfer to a tertiary care center for further GI/hepatology input. Comment: The patient's case has been discussed and reviewed with the patient. 9. Renal insufficiency Her creatinine level has increased despite her receiving IV fluids. Given its unclear whether this is related to her underlying sepsis syndrome versus other etiologies. 10. Volume overload Based upon her examination and her chest x-ray findings there is concern about increased pulmonary vascularity/effusion compatible with a form of CHF. Her IV fluids are being placed on hold. She is going to receive additional IV diuretics. A transthoracic echocardiogram is pending to reassess her cardiac anatomy and function. Comment: The patient's case has been discussed and reviewed with the patient and Dr. Reyes. This note was generated using a voice recognition system and there may be incorrect words, spelling or punctuation that were not noted when reviewing the office note prior to saving.
[2020-04-22] MEDS: Furosemide 100 MG/10 ML Vial 80 MG IV (10:34)
[2020-04-22] MEDS: 0.9% Saline Lock 10 ML Syringe IV (10:34)
--- NOTE | 2020-04-22 13:45 | RAD_ITS ---
STUDY: X-RAY CHEST REASON FOR EXAM: Female, 84 years old. PICC LINE PLACEMENT TECHNIQUE: Single AP portable view of the chest. COMPARISON: Comparison is made with prior study done earlier in the day at 1:05 AM. FINDINGS: A left-sided PICC line catheter has been inserted. The tip is at the junction of the superior vena cava and right atrium. Stable elevation of the right hemidiaphragm. Blunting of the right costophrenic angle. Since prior study, there has been improved aeration with decreased CHF. Sternal cerclage wires and vascular clips are present from a prior sternotomy and coronary artery bypass graft procedure (CABG). Normal mediastinum and pito. Normal visualized pulmonary arteries. There is atherosclerotic tortuosity of the aortic arch and descending thoracic aorta. There are diffuse degenerative changes of the visualized thoracic spine. There is degenerative osteoarthritis of the bilateral shoulders. There is no demonstrated abnormality of the visualized soft tissue structures of the upper abdomen. RAD/CXR for Line Placement IMPRESSION: The tip of the left PICC line catheter is at the junction of the superior vena cava and right atrium. Since prior study, has been improved aeration of both lungs. Electronically Signed: Nestor Noonan, at 14:07 EDT , Service support ,
--- NOTE | 2020-04-22 13:50 | PCM.CONS.R ---
Problem List (1) ULISSES (acute kidney injury) Status: Acute Consultation - Renal 04/22/20 PCP/ Referring MD: Requesting physician: [] Primary care physician: Dr. Chad Chang MD Reason for Consultation:: ULISSES - History of Present Illness History of Present Illness: The patient is a 84 year old F who was admitted to hospital with complaints of left LE charcot foot, cellulitis. renal consulted for ULISSES normal cr at baseline as of november 2019. admitted with above issues. other medical issues 1- AFIB with RVR 2- CHF with EF 30%. history of s/p valve replacement in 2016 at [facility]. dilated RV as well 3-charcot foot with infection in left LE 4-severe sepsis 5- elevated LFTs likely shock liver currently denies any complaints. breathing is somewhat labored. no urine output. no abdomen pain - Allergies Allergies: Allergies No Known Allergies Allergy (Verified 04/19/20 09:28) - Current Medications Current Medications: Current Medications Acetaminophen (Tylenol) 650 mg PO Q6H PRN PRN PRN Reason: Pain Score 1-10/Temp > 100.7 F Last Admin: 04/21/20 08:19 Dose: 650 mg Documented by: Dextrose (D50w Syringe) 0 gm IV X1 PRN; Protocol PRN Reason: Hypoglycemia Glucagon () 1 mg IM .X1 PRN PRN Reason: Hypoglycemia Piperacillin Sod/Tazobactam (Sod 3.375 gm/ Sodium Chloride) 50 mls @ 12.5 mls/hr IV Q8 [facility] Last Infusion: 04/22/20 09:50 Dose: Infused Documented by: Vancomycin IV Pharmacy to Dose (1 ea/ Sodium Chloride) 500 mls @ 250 mls/hr IV PRN PRN; Protocol PRN Reason: Rx to Dose Vancomycin HCl 750 mg/ Sodium (Chloride) 265 mls @ 250 mls/hr IV Q24H [facility] Last Infusion: 04/21/20 14:03 Dose: Infused Documented by: Sodium Chloride () 250 mls @ 15 mls/hr IV .[id number] PRN PRN Reason: Saline Flush Last Infusion: 04/21/20 20:21 Dose: 0 mls/hr Documented by: Sodium Chloride () 250 mls @ 15 mls/hr IV .[id number] PRN PRN Reason: Additional IVPB Infusion Insulin Glargine (Lantus (Bkc)) 10 units SC QHS [facility] Last Admin: 04/21/20 22:09 Dose: 10 u Documented by: Insulin Human Lispro (Humalog Kwikpen (Bkc)) 0 unit SC ACHS [facility]; Protocol Last Admin: 04/22/20 08:35 Dose: Not Given Documented by: Insulin Human Lispro (Humalog Kwikpen (Bkc)) 5 unit SC TIDAC [facility] Last Admin: 04/22/20 10:05 Dose: Not Given Documented by: Nystatin (Mycostatin Powder) 1 applic TOPICAL BID [facility]; Protocol Last Admin: 04/21/20 19:57 Dose: 1 applicatio Documented by: Ondansetron HCl (Zofran) 4 mg IV Q8H PRN PRN PRN Reason: NAUSEA/VOMITING Sodium Chloride () 10 - 40 ml IV UD PRN PRN Reason: SALINE FLUSH Last Admin: 04/22/20 10:34 Dose: 20 ml Documented by: - Past Medical History Past Medical History (Chronic Problems): Chronic Problems (Last Reviewed 01/09/20 @ 11:16 by Sandy Hopson PA, PA) Leg swelling (Chronic) Leg edema (Chronic) Rheumatoid arthritis (Chronic) Debility (Chronic) Overweight (BMI 25.0-29.9) (Chronic) CHF (congestive heart failure) (Chronic) Hypertension (Chronic) Hiatal hernia (Chronic) Dependent edema (Chronic) Chronic venous insufficiency (Chronic) Restless legs (Chronic) Peripheral arterial disease (Chronic) Charcot foot due to diabetes mellitus (Chronic) Mixed hyperlipidemia (Chronic) Moderate pulmonary arterial systolic hypertension (Chronic) LVH (left ventricular hypertrophy) (Chronic) Biatrial enlargement (Chronic) Chronic anticoagulation (Chronic) Chronic renal failure, stage 3 (moderate) (Chronic) Apixaban Overactive bladder (Chronic) Tinea unguium (Chronic) Hallux valgus (acquired), right foot (Chronic) Nonrheumatic mitral (valve) insufficiency (Chronic) Non-rheumatic tricuspid valve insufficiency (Chronic) Anxiety and depression (Chronic) Venous insufficiency of both lower extremities (Chronic) Type 2 diabetes mellitus (Chronic) Uncontrolled hemoglobin A1c on 08/18/2018 is 10.4 Paroxysmal atrial fibrillation (Chronic) History of aortic valve replacement with bioprosthetic valve (Chronic ~06/20/16) 23 mm Saint to trifecta GT valve in June 2016 at [facility]; Pulmonary hypertension (Chronic) - Past Surgical History Surgical History: - - Aortic valve replacement with bioprosthetic valve. Bilateral bunionectomy. Bilateral total knee replacement. The patient is a G0, P0 Ab0. - Social History Smoking Status: Never smoker Alcohol: None Drugs: None - Family History Paternal Family History: Family History (Last Reviewed 01/09/20 @ 11:16 by Sandy GOLDMAN, PA) Father CAD (coronary artery disease) Mother CAD (coronary artery disease) History Items: Dementia, Heart Disease Maternal Family History: Family History (Last Reviewed 01/09/20 @ 11:16 by Sandy GOLDMAN, PA) Father CAD (coronary artery disease) Mother CAD (coronary artery disease) History Items: Heart Disease Review of Systems Constitutional: Denies: Chills, Fever, Weight Change HEENT: Denies: Head Aches, Sinus Congestion, Sinus Drainage Cardiovascular: Denies: Chest Pain, Palpitations Respiratory: Denies: Cough, Shortness of breath at rest, Sputum production Gastrointestinal: Denies: Abdominal Pain, Nausea, Vomiting Genitourinary: Denies: Dysuria Musculoskeletal: Denies: Joint Pain, Joint Tenderness Skin: Denies: Rash, Wounds Neurological: Denies: Numbness, Tingling, Focal weakness Psychiatric: Denies: Anxiety, Depression, Homicidal Ideations, Suicidal Ideations Hematologic/ Lymphatic: Denies: Easy Bruising, Easy Bleeding Patient Problems: Active and Suspected Problems (Last Reviewed 01/09/20 @ 11:16 by Sandy GOLDMAN, PA) Diabetic infection of left foot (Acute) Paroxysmal atrial fibrillation with RVR (Acute) Lactic acidosis (Acute) Severe sepsis (Acute) Elevated serum creatinine (Acute) Hypotension (Acute) ULISSES (acute kidney injury) (Acute) - Physical Exam Vitals/I&O's: Vital Signs Temp Pulse Resp BP Pulse Ox 97.3 F L 109 H 20 H 82/48 L 98 04/22/20 08:00 04/22/20 11:00 04/22/20 11:00 04/22/20 11:00 04/22/20 11:00 Oxygen Flow Rate (L/min) 3 Oxygen Delivery Method Room Air Weight: 92.4 kg Body Mass Index (BMI) 31.7 Finger Stick Blood Glucose 394 Intake and Output for Last 24 Hours 04/20/20 04/21/20 04/22/20 23:59 23:59 23:59 Intake Total 3010.93 / 3010.93 4034.62 / 4034.62 1219.87 / 1219.87 Output Total 625 / 675 450 / 450 0 / 0 Balance 2385.93 / 2335.93 3584.62 / 3584.62 1219.87 / 1219.87 General: Alert, Oriented x3, Cooperative HEENT: Atraumatic, PERRLA, EOMI, Normocephalic Neck: Supple, No JVD, Negative Carotid Bruits Lungs: Clear to auscultation, Normal air movement Cardiovascular: Regular rate, No murmurs Abdomen: Bowel Sounds Present, Soft, Non Tender Extremities: No edema, Capillary Refill Less than 3 Seconds Skin: No rashes, No breakdown Musculoskeletal: No Tenderness to Palpation of Joints or Extremities Neurological: Cranial nerves II-XII grossly intact Psych/Mental Status: Normal Affect, Appropriate Microbiology Past 72 Hours 04/20/20 12:30 Wound - Left Foot Gram Stain - Final 04/20/20 12:30 Wound - Left Foot Wound Culture - Preliminary Staphylococcus aureus Coag Negative Staph GPC Poss Enterococcus sp Gram negative kim 04/20/20 12:30 Wound - Left Foot Anaerobic Culture - Preliminary Checking for anaerobes, further studies to follow. 04/19/20 11:43 Blood Culture (Wb) - Left Hand Blood Culture - Preliminary No growth in 48 hours. 04/19/20 11:20 Blood Culture (Wb) - Anticubital Right Blood Culture - Preliminary No growth in 48 hours. Laboratory Results 04/21/20 16:05: POC Glucose 71 04/21/20 22:05: POC Glucose 111 H 04/22/20 04:20: WBC 16.4 H, RBC 3.94 L, Hgb 11.0 L, Hct 35.7 L, MCV 90.6, MCH 27.9, MCHC 30.8 L, RDW Std Deviation 62.2 H, RDW Coeff of Blanca 19.3 H, Plt Count 193, MPV 10.5, Immature Gran % (Auto) 3.300 H, Neut % (Auto) 87.6 H, Lymph % (Auto) 2.0 L, Pope % (Auto) 6.3, Eos % (Auto) 0.4, Baso % (Auto) 0.4, Absolute Neuts (auto) 14.4 H, Absolute Lymphs (auto) 0.32 L, Nucleated RBC % 0.5, Differential Comment SCANNED 04/22/20 04:20: Sodium 135 L, Potassium 4.8, Chloride 106, Carbon Dioxide 20.0 L, Anion Gap 9, BUN 62 H, Creatinine 1.87 H, Estim Creat Clear Calc 18.34, Est GFR (MDRD) Af Amer 33 L, Est GFR (MDRD) Non-Af 27 L, BUN/Creatinine Ratio 33.2 H, Glucose 127 H, Calcium 6.7 L, Total Bilirubin 1.20 H, Direct Bilirubin 1.02 H, AST 7297 H, ALT 3207 H, Alkaline Phosphatase 185 H, Total Protein 4.7 L, Albumin 2.3 L, Globulin 2.4 04/22/20 04:20: PT 50.3 H, INR 5.5 H* 04/22/20 08:30: Hepatitis A IgM Ab Pending, Hep Bs Antigen Pending, Hep B Core IgM Ab Pending, Hepatitis C Ab (EIA) Pending Current Medications Acetaminophen (Tylenol) 650 mg PO Q6H PRN PRN PRN Reason: Pain Score 1-10/Temp > 100.7 F Last Admin: 04/21/20 08:19 Dose: 650 mg Documented by: Dextrose (D50w Syringe) 0 gm IV X1 PRN; Protocol PRN Reason: Hypoglycemia Glucagon () 1 mg IM .X1 PRN PRN Reason: Hypoglycemia Piperacillin Sod/Tazobactam (Sod 3.375 gm/ Sodium Chloride) 50 mls @ 12.5 mls/hr IV Q8 [facility] Last Infusion: 04/22/20 09:50 Dose: Infused Documented by: Vancomycin IV Pharmacy to Dose (1 ea/ Sodium Chloride) 500 mls @ 250 mls/hr IV PRN PRN; Protocol PRN Reason: Rx to Dose Vancomycin HCl 750 mg/ Sodium (Chloride) 265 mls @ 250 mls/hr IV Q24H [facility] Last Infusion: 04/21/20 14:03 Dose: Infused Documented by: Sodium Chloride () 250 mls @ 15 mls/hr IV .[id number] PRN PRN Reason: Saline Flush Last Infusion: 04/21/20 20:21 Dose: 0 mls/hr Documented by: Sodium Chloride () 250 mls @ 15 mls/hr IV .[id number] PRN PRN Reason: Additional IVPB Infusion Insulin Glargine (Lantus (Bkc)) 10 units SC QHS [facility] Last Admin: 04/21/20 22:09 Dose: 10 u Documented by: Insulin Human Lispro (Humalog Kwikpen (Bkc)) 0 unit SC ACHS [facility]; Protocol Last Admin: 04/22/20 08:35 Dose: Not Given Documented by: Insulin Human Lispro (Humalog Kwikpen (Bkc)) 5 unit SC TIDAC [facility] Last Admin: 04/22/20 10:05 Dose: Not Given Documented by: Nystatin (Mycostatin Powder) 1 applic TOPICAL BID [facility]; Protocol Last Admin: 04/21/20 19:57 Dose: 1 applicatio Documented by: Ondansetron HCl (Zofran) 4 mg IV Q8H PRN PRN PRN Reason: NAUSEA/VOMITING Sodium Chloride () 10 - 40 ml IV UD PRN PRN Reason: SALINE FLUSH Last Admin: 04/22/20 10:34 Dose: 20 ml Documented by: Assessment/Plan All Active Problems (Last Reviewed 01/09/20 @ 11:16 by Sandy Hopson PA, PA) Diabetic infection of left foot (Acute) Paroxysmal atrial fibrillation with RVR (Acute) Lactic acidosis (Acute) Severe sepsis (Acute) Elevated serum creatinine (Acute) Hypotension (Acute) ULISSES (acute kidney injury) (Acute) Bronchitis (Acute) Ulcer of right lower extremity with fat layer exposed (Resolved) Ulcer of left lower extremity with fat layer exposed (Resolved) Chronic ulcer of left foot with fat layer exposed (Resolved) Chronic ulcer of right great toe with fat layer exposed (Resolved) Ulcer of left lower extremity with fat layer exposed (Resolved) Ulcer of right lower extremity with fat layer exposed (Resolved) Venous ulcers of both lower extremities (Resolved) Hyponatremia (Resolved) ULISSES. normal baseline as of november 2019. admitted with multiple medical issues. arevalo in with no urine output. this has been flushed BP is extremely low. developed severe shock liver and likely ischemic ATN in setting of hypotension currently electrolytes are ok CXR is somewhat wet looking but she is on nasal cannula alone has moderate peripheral edema failed lasix challenge at 80 mg discussed with patient about renal failure and other issues. I did bring up dialysis. apparently her brother was on dialysis and she knows about it. did not give a specific answer as to if she is willing to get it done if needed. explained that even if she needs it, will be temporary Bp remains low will dw ICU attending consider pressors for a day or so and lasix challenge
[2020-04-22 13:55] LABS: Bedside Glucose 98 mg/dL (70-110)
[2020-04-22 14:32] LABS: Vancomycin, Trough Level 19.9 ug/mL (5.0-15.0)
--- NOTE | 2020-04-22 15:11 | PCM.RX.CS ---
Consult Pharmacy has been consulted to manage selected antiobiotic: Vancomycin Type of Consult: Follow-up Labs: Sodium 135 mmol/L (136-145) L 04/22/20 04:20 Potassium 4.8 mmol/L (3.5-5.1) 04/22/20 04:20 Chloride 106 mmol/L (98-107) 04/22/20 04:20 Carbon Dioxide 20.0 mmol/L (21.0-32.0) L 04/22/20 04:20 Anion Gap 9 (5-15) 04/22/20 04:20 BUN 62 mg/dL (7-18) H 04/22/20 04:20 Creatinine 1.87 mg/dL (0.55-1.02) H 04/22/20 04:20 Est GFR (MDRD) Af Amer 33 mL/min (>60) L 04/22/20 04:20 Est GFR (MDRD) Non-Af 27 mL/min (>60) L 04/22/20 04:20 BUN/Creatinine Ratio 33.2 RATIO (10-20) H 04/22/20 04:20 Glucose 127 mg/dL (74-106) H 04/22/20 04:20 Vancomycin Trough 19.9 ug/mL (5.0-15.0) H 04/22/20 13:50 Microbiology: Microbiology 04/20/20 12:30 Wound - Left Foot Gram Stain - Final 04/20/20 12:30 Wound - Left Foot Wound Culture - Preliminary Staphylococcus aureus Coag Negative Staph GPC Poss Enterococcus sp Gram negative kim 04/20/20 12:30 Wound - Left Foot Anaerobic Culture - Preliminary Checking for anaerobes, further studies to follow. 04/19/20 11:43 Blood Culture (Wb) - Left Hand Blood Culture - Preliminary No growth in 48 hours. 04/19/20 11:20 Blood Culture (Wb) - Anticubital Right Blood Culture - Preliminary No growth in 48 hours. Weight used for dosin.4 kg Goal Trough: 15-20 mcg/mL Pharmacy Plan for Drug Dosing: VANCOMYCIN LEVEL RECEIVED Current Vancomycin Dose: 750MG Q24H Number of Doses Received: 1 OF 1750MG, 2 DOSES OF 750MG Vancomycin Level: 19.9MG/DL Hours Since Last Dose: 25 Renal Function: SCR 1.87, CrCl 24.5ML/DL Renal Function Trend: WORSENING Lab/Micro: STAPH IN WOUND CX Vancomycin Plan/Comments: DECREASE DOSE TO 500MG Q24 D/T 25 HOUR TROUGH ON HIGHER END OF GOAL RANGE OF 15-20 MG/DL AND WORSENING SCR. WILL START TOMORROW BECAUSE TODAY'S 750MG DOSE HAS ALREADY BEEN HUNG. WILL GET TROUGH PRIOR TO THE 3RD DOSE OF THE NEW REGIMEN. Pharmacy Service will continue to monitor and adjust dosing as required. Labs to be done on [date and time ordered]: 04/25/20 @ 3445
--- NOTE | 2020-04-22 15:43 | CASEMGMT ---
SILVIO let patient know that [facility] can take her at d/c. She thanked SILVIO for letting her know. Plan: [facility] when ready. Renetta HERNANDEZ MSW
[2020-04-22 17:56] LABS: Bedside Glucose 74 mg/dL (70-110)
--- NOTE | 2020-04-22 18:39 | PN_ITS ---
Patient Problems: Active and Suspected Problems (Last Reviewed 01/09/20 @ 11:16 by Sandy Hopson PA, PA) Diabetic infection of left foot (Acute) Paroxysmal atrial fibrillation with RVR (Acute) Lactic acidosis (Acute) Severe sepsis (Acute) Elevated serum creatinine (Acute) Hypotension (Acute) ULISSES (acute kidney injury) (Acute) Subjective: Much more lethargic today and tired. Currently in liver failure. No major issues overnight other than continued struggles with her blood pressure. Vitals/I&O's: Vital Signs Temp Pulse Resp BP Pulse Ox 97.4 F L 115 H 21 H 109/82 H 94 04/22/20 16:00 04/22/20 18:00 04/22/20 18:00 04/22/20 18:00 04/22/20 18:00 Oxygen Flow Rate (L/min) 3 Oxygen Delivery Method Room Air Weight: 203 lb 11.314 oz Body Mass Index (BMI) 31.7 Finger Stick Blood Glucose 394 Intake and Output for Last 24 Hours 04/20/20 04/21/20 04/22/20 23:59 23:59 23:59 Intake Total 3010.93 / 3010.93 4034.62 / 4034.62 1530.62 / 1530.62 Output Total 625 / 675 450 / 450 0 / 0 Balance 2385.93 / 2335.93 3584.62 / 3584.62 1530.62 / 1530.62 General: Alert, Oriented x3, Cooperative, No apparent distress HEENT: Atraumatic, PERRLA, EOMI, Normocephalic, mild scleral icterus Oral: Moist Mucosa Neck: Supple, No JVD Lungs: Normal air movement, No rhonchi, No wheeze, rales, Diminished Cardiovascular: Regular Rhythm, Normal S1, Normal S2, No murmurs, Tachycardic Abdomen: Soft, Non Tender, Non-Distended, No Hepato-splenomegaly Extremities: Trace pitting edema, Capillary Refill Less than 3 Seconds Skin: - -Cellulitis is improved, there is a diabetic ulcer approximately 2 cm in diameter on her left medial foot no drainage Neurological: Neuro grossly intact, Sensory exam intact to light touch and pain Psych/Mental Status: Normal Affect, Appropriate Microbiology Past 72 Hours 04/20/20 12:30 Wound - Left Foot Gram Stain - Final 04/20/20 12:30 Wound - Left Foot Wound Culture - Preliminary Staphylococcus aureus Coag Negative Staph GPC Poss Enterococcus sp Gram negative kim 04/20/20 12:30 Wound - Left Foot Anaerobic Culture - Preliminary Checking for anaerobes, further studies to follow. 04/19/20 11:43 Blood Culture (Wb) - Left Hand Blood Culture - Preliminary No growth in 48 hours. 04/19/20 11:20 Blood Culture (Wb) - Anticubital Right Blood Culture - Preliminary No growth in 48 hours. Laboratory Results 04/21/20 22:05: POC Glucose 111 H 04/22/20 04:20: WBC 16.4 H, RBC 3.94 L, Hgb 11.0 L, Hct 35.7 L, MCV 90.6, MCH 27.9, MCHC 30.8 L, RDW Std Deviation 62.2 H, RDW Coeff of Blanca 19.3 H, Plt Count 193, MPV 10.5, Immature Gran % (Auto) 3.300 H, Neut % (Auto) 87.6 H, Lymph % (Auto) 2.0 L, Ector % (Auto) 6.3, Eos % (Auto) 0.4, Baso % (Auto) 0.4, Absolute Neuts (auto) 14.4 H, Absolute Lymphs (auto) 0.32 L, Nucleated RBC % 0.5, Differential Comment SCANNED 04/22/20 04:20: Sodium 135 L, Potassium 4.8, Chloride 106, Carbon Dioxide 20.0 L , Anion Gap 9, BUN 62 H, Creatinine 1.87 H, Estim Creat Clear Calc 18.34, Est GFR (MDRD) Af Amer 33 L, Est GFR (MDRD) Non-Af 27 L, BUN/Creatinine Ratio 33.2 H , Glucose 127 H, Calcium 6.7 L, Total Bilirubin 1.20 H, Direct Bilirubin 1.02 H, AST 7297 H, ALT 3207 H, Alkaline Phosphatase 185 H, Total Protein 4.7 L, Albumin 2.3 L, Globulin 2.4 04/22/20 04:20: PT 50.3 H, INR 5.5 H* 04/22/20 08:30: Hepatitis A IgM Ab Pending, Hep Bs Antigen Pending, Hep B Core IgM Ab Pending, Hepatitis C Ab (EIA) Pending 04/22/20 13:49: POC Glucose 98 04/22/20 13:50: Vancomycin Trough 19.9 H 04/22/20 17:10: POC Glucose 74 Current Medications Acetaminophen (Tylenol) 650 mg PO Q6H PRN PRN PRN Reason: Pain Score 1-10/Temp > 100.7 F Last Admin: 04/21/20 08:19 Dose: 650 mg Documented by: Dextrose (D50w Syringe) 0 gm IV X1 PRN; Protocol PRN Reason: Hypoglycemia Glucagon () 1 mg IM .X1 PRN PRN Reason: Hypoglycemia Piperacillin Sod/Tazobactam (Sod 3.375 gm/ Sodium Chloride) 50 mls @ 12.5 mls/hr IV Q8 DONNIE Last Admin: 04/22/20 17:11 Dose: 12.5 mls/hr Documented by: Vancomycin IV Pharmacy to Dose (1 ea/ Sodium Chloride) 500 mls @ 250 mls/hr IV PRN PRN; Protocol PRN Reason: Rx to Dose Sodium Chloride () 250 mls @ 15 mls/hr IV .[id number] PRN PRN Reason: Saline Flush Last Infusion: 04/22/20 18:20 Dose: 0 mls/hr Documented by: Sodium Chloride () 250 mls @ 15 mls/hr IV .[id number] PRN PRN Reason: Additional IVPB Infusion Vancomycin HCl () 500 mg in 100 mls @ 100 mls/hr IV Q24H DONNIE Norepinephrine Bitartrate 8 mg (/ Sodium Chloride) 250 mls @ 9.375 mls/hr CONT INF .[id number] [facility]; Protocol Insulin Glargine (Lantus (Bkc)) 10 units SC QHS [facility] Last Admin: 04/21/20 22:09 Dose: 10 u Documented by: Insulin Human Lispro (Humalog Kwikpen (Bk)) 0 unit SC ACHS DONNIE; Protocol Last Admin: 04/22/20 18:11 Dose: Not Given Documented by: Insulin Human Lispro (Humalog Kwikpen (Bkc)) 5 unit SC TIDAC [facility] Last Admin: 04/22/20 18:11 Dose: Not Given Documented by: Nystatin (Mycostatin Powder) 1 applic TOPICAL BID DONNIE; Protocol Last Admin: 04/22/20 08:30 Dose: 1 applicatio Documented by: Ondansetron HCl (Zofran) 4 mg IV Q8H PRN PRN PRN Reason: NAUSEA/VOMITING Sodium Chloride () 10 - 40 ml IV UD PRN PRN Reason: SALINE FLUSH Last Admin: 04/22/20 10:34 Dose: 20 ml Documented by: BARBARA Vital Signs/Narrative: Vital Signs Temp Pulse Resp BP Pulse Ox 04/22/20 18:00 115 H 21 H 109/82 H 94 04/22/20 17:00 111 H 21 H 93/77 94 04/22/20 16:00 97.4 F L 112 H 22 H 107/90 H 92 04/22/20 15:00 105 H 21 H 94/79 94 Medical Necessity - Tobacco Use Smoking Status: Never smoker Assessment/Plan All Active Problems (Last Reviewed 01/09/20 @ 11:16 by Sandy Hopson PA, PA) Diabetic infection of left foot (Acute) Paroxysmal atrial fibrillation with RVR (Acute) Lactic acidosis (Acute) Severe sepsis (Acute) Elevated serum creatinine (Acute) Hypotension (Acute) ULISSES (acute kidney injury) (Acute) Bronchitis (Acute) Ulcer of right lower extremity with fat layer exposed (Resolved) Ulcer of left lower extremity with fat layer exposed (Resolved) Chronic ulcer of left foot with fat layer exposed (Resolved) Chronic ulcer of right great toe with fat layer exposed (Resolved) Ulcer of left lower extremity with fat layer exposed (Resolved) Ulcer of right lower extremity with fat layer exposed (Resolved) Venous ulcers of both lower extremities (Resolved) Hyponatremia (Resolved) 1. Severe sepsis secondary to diabetic foot ulcer with cellulitis/Charcot foot -She is supposed to have surgery tomorrow with podiatry because of her Charcot foot, will consult podiatry -She has not showered over a week and has not been following with the wound care center -Leukocytosis of 18.4, and tachycardia likely related to her A. fib -Continue with vancomycin and Zosyn given the polymicrobial nature of diabetic ulcers -Lactate greater than 2.2 consistent with severe sepsis therefore she was placed in the ICU with an radiation safety officer consult - -MRI with no osteomyelitis, arterial studies show very poor blood flow to her lower extremities 2. Paroxysmal A. fib/pulmonary hypertension/chronic diastolic CHF and acute systolic CHF exacerbation/HTN/HLD -Can restart her Eliquis since there does not appear to be any surgical interve ntion at this time -We will hold her lisinopril given her renal dysfunction and her soft blood pressures -She had an echo in 2019 with an EF of 65% and concentric left ventricular hypertrophy with pulmonary hypertension and of our RVSP of 57 mmHg and diastolic dysfunction. Repeat echo today with an EF of 30% with severely dilated right ventricle and an RVSP of 33 mmHg -Continue with aggressive Lasix dosing, she received 80 mg today and still has not produced any urine -Can continue with Lipitor once dosage is confirmed -Amiodarone was discontinued secondary to possible hepatotoxicity -Cardiology was consulted to assist in management 3. Acute liver failure -She had an acute rise in her INR from 2.2-5.5 despite not being on Coumadin and only being on Eliquis -LFTs sushma from in the 60s to over 7000 for the AST and 3000 for the ALT. She also had a jump in her total bilirubin from 0.7-1.2 with a direct bilirubin of 1.02 -Hepatitis panel is pending, amiodarone was discontinued -It is possible a right-sided ventricular failure is the cause of her acute liver failure. Ultrasound of her liver was unremarkable did show diffuse gallbladder wall thickening without pericholecystic fluid however she does not have any right upper quadrant abdominal pain. 4. Acute renal failure -Appreciate nephrology input. On admission her creatinine is 1.56 and it has risen to 1.87 looks like baseline creatinine is around 0.6 -She is also now anuric and her creatinine worsened despite IV fluids -80 mg IV Lasix were given without any production of urine. We will continue with Lasix as well as a pressor (if necessary) to support renal function -On review of her labs, her renal failure was present on admission 3. DM 2 with diabetic foot ulcer and Charcot foot -We will hold her oral hypoglycemics and transition her to a sliding scale insulin -Continue with Lantus 10 units at night -Accu-Cheks AC at bedtime DVT: Supratherapeutic INR Inpatient E&M: [id number] [facility] Hosp L3
[2020-04-22] MEDS: Menthol/Lanolin/Calamine/Znox 113 GM Tube 1 APPLIC TOPICAL (22:30)
[2020-04-22 23:41] LABS: Bedside Glucose 64 mg/dL (70-110)
[2020-04-22 23:41] LABS: Bedside Glucose 99 mg/dL (70-110)
[2020-04-23] VITALS (26 sets, daily range): BP systolic 84–123; BP diastolic 48–87; PULSE 112–129; RESP 14–32; TEMP 36.6–36.8; O2SAT 92–100
[2020-04-23 02:05] LABS: Bedside Glucose 69 mg/dL (70-110)
[2020-04-23 02:51] LABS: Bedside Glucose 89 mg/dL (70-110)
[2020-04-23 06:07] LABS: HEPATITIS B SURFACE AG Negative (Negative); Hepatitis A IgM Antibody Negative (Negative); Hepatitis B Core AB IgM Negative (Negative)
[2020-04-23 06:09] LABS: Absolute Lymphocyte Count 0.42 X10^3/uL (0.83-4.51); Basophil# 0.04 X10^3/uL; Basophil% 0.3 % (0-1); Hematocrit 38.3 % (37-47); Hemoglobin 11.8 g/dL (12.0-15.0); Lymphocyte # 0.42 X10^3/ul (4.0); Lymphocyte % 3.1 % (19-41); Mean Corp Hgb Conc 30.8 g/dL (32-36); Mean Corpuscular Hgb 27.2 pg (27.0-32.0); Mean Corpuscular Volume 88.2 fL (81-99); Mean Platelet Vol. 10.4 fl (6.2-12.0); Monocyte# 0.47 X10^3/uL; Monocyte% 3.5 % (0-10); NRBC Flagged by Analyzer 1.9 % (0-5); Neutrophil # 11.96 X10^3/uL (2.7-7.7); Neutrophil % 88.4 % (47-70); POSITIVE DIFFERENTIAL YES; Platelet Count 141 K/mm3 (150-450); RBC Distribution Width CV 19.7 % (11.6-14.6); RBC Distribution Width SD 60.6 fl (35.1-43.9); Red Blood Count 4.34 M/mm3 (4.2-5.4); White Blood Count 13.5 K/mm3 (4.4-11.0)
[2020-04-23 06:11] LABS: Differential Indicated SCAN CRITERIA MET
[2020-04-23 06:26] LABS: International Normalized Ratio 5.2
[2020-04-23 06:26] LABS: Bedside Glucose 53 mg/dL (70-110)
[2020-04-23] MEDS: 0.9% Saline Lock 10 ML Syringe IV (06:32)
[2020-04-23 06:42] LABS: AST(SGOT) 6920 U/L (15-37); Alanine Aminotransfer ALT/SGPT 3519 U/L (13-56); Albumin, Serum 2.7 g/dL (3.2-5.0); Alkaline Phosphatase 229 U/L (45-117); Anion Gap 10 (5-15); BUN 78 mg/dL (7-18); BUN/Creat Ratio 29.1 RATIO (10-20); Bilirubin, Direct 1.12 mg/dL (0.00-0.30); Calcium,Total 7.4 mg/dL (8.5-10.1); Chloride 104 mmol/L (98-107); Creatinine, Serum 2.68 mg/dL (0.55-1.02); EST Glomerular Filtration Rate 18 mL/min (>60); Est Glom Filt Rate - Afr Amer 22 mL/min (>60); Globulin 2.6 g/dL (2.2-4.2); Glucose 72 mg/dL (74-106); Potassium 5.5 mmol/L (3.5-5.1); Protein, Total 5.3 g/dL (6.4-8.2); Sodium Level 134 mmol/L (136-145)
[2020-04-23] MEDS: Furosemide 40 MG/4 ML Vial IV (06:44)
[2020-04-23 06:55] LABS: Acanthocytes 1+; Differential Comment SCANNED
[2020-04-23 06:56] LABS: Bedside Glucose 65 mg/dL (70-110)
[2020-04-23 07:31] LABS: Bedside Glucose 82 mg/dL (70-110)
--- NOTE | 2020-04-23 08:20 | PN.CARD_ITS ---
Subjectve: The patient is awake and alert. She denies chest discomfort. She comments on feeling short of breath as well as being edematous in lower extremities. She states she does not have any appetite. Objective: Vital Signs Temp Pulse Resp BP Pulse Ox 98.1 F 123 H 24 H 108/76 95 04/23/20 06:00 04/23/20 08:00 04/23/20 08:00 04/23/20 08:00 04/23/20 08:00 Oxygen Flow Rate (L/min) 3 Oxygen Delivery Method Room Air Weight: 197 lb 8.547 oz Body Mass Index (BMI) 31.7 Finger Stick Blood Glucose 394 Intake and Output for Last 24 Hours 04/21/20 04/22/20 04/23/20 23:59 23:59 23:59 Intake Total 4034.62 / 4034.62 1870.62 / 2019.62 750 / 750 Output Total 450 / 450 25 / 25 Balance 3584.62 / 3584.62 1850.62 / 1999.62 725 / 725 General: Awake, Alert, Oriented x 3, Cooperative, Ill Appearing HEENT: Atraumatic, PERRL, EOMI Lungs: Diminished Maycol Bases Cardiovascular: Irregular Rhythm, Normal S1, Normal S2 Abdomen: Bowel Sounds Present, Soft Extremities: Moderate RLE Edema, Severe RLE Edema, - - Left foot: Remains in an Tommie wrap Psych/Mental Status: Depressed 04/23/20 06:05: WBC 13.5 H, RBC 4.34, Hgb 11.8 L, Hct 38.3, MCV 88.2, MCH 27.2, MCHC 30.8 L, Plt Count 141 L, MPV 10.4, Immature Gran % (Auto) 4.700 H, Neut % (Auto) 88.4 H, Lymph % (Auto) 3.1 L, Bradley % (Auto) 3.5, Eos % (Auto) 0.0, Baso % (Auto) 0.3, Absolute Neuts (auto) 12.0 H, Nucleated RBC % 1.9 04/23/20 06:05: PT 48.0 H, INR 5.2 H* 04/23/20 06:05: Sodium 134 L, Potassium 5.5 H, Chloride 104, Carbon Dioxide 20.0 L, Anion Gap 10, BUN 78 H, Creatinine 2.68 H, Est GFR (MDRD) Af Amer 22 L, Est GFR (MDRD) Non-Af 18 L, BUN/Creatinine Ratio 29.1 H, Glucose 72 L, Calcium 7.4 L , Total Bilirubin 1.40 H, Direct Bilirubin 1.12 H Rhythm: Atrial fibrillation Echocardiogram: 04-22-2020 Interpretation Summary The study was technically difficult. Moderate global left ventricular systolic dysfunction. The estimated ejection fraction is 30 %. D shaped septum in systole and diastole. Apical false tendon noted. Severely dilated right ventricle. Mild to moderate global right ventricular systolic dysfunction. The left atrium is severely enlarged. The right atrium is severely enlarged. There is severe mitral annular calcification. Extension of the mitral annular calcification onto the mitral valve leaflets. Mild-Moderate (1-2+) mitral valve insufficiency. Poor coaptation of the tricuspic valve. Moderately severe (3+) tricuspid valve insufficiency. Stable appearing bioprosthetic aortic valve apparatus. Moderate focal aortic valve calcification. Mild aortic stenosis. Trivial pulmonic valve insufficiency. Right ventricular systolic pressure estimated to be 33 mmHg. Unable to assess diastolic dysfunction. Medical Necessity - Tobacco Use Smoking Status: Never smoker Assessment/Plan 1. Atrial fibrillation The patient has a history of atrial fibrillation. At the moment secondary to her low blood pressure and her other objective findings she is not on any rate limiting medications. If her blood pressure allows an attempt can be made to use agent such as beta- blockers or calcium channel antagonist. She is not an ideal candidate for digitalis secondary to her elevated creatinine level. Also, based upon reevaluation of her anticoagulation status, with her INR being markedly elevated, her anticoagulant therapy has been placed on hold. 2. 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 She will need to continue AHA antibiotic prophylaxis. She did have a follow-up transthoracic echocardiogram. The results are as noted. 3. CHF/left ventricular systolic dysfunction Based upon her echocardiographic findings her left ventricular systolic function is depressed/her LVEF is depressed. The etiology is unclear as to whether this is related to multiple factors including her atrial dysrhythmia with rapid ventricular response and/or her underlying sepsis syndrome. At the moment she is being followed. Ideally she would be on medical therapy such as beta-blockers and afterload reducing agents. However with her low blood pressures and other objective findings this is challenging to do at this time. She is going to attempt continuous IV infusion diuretics to assist with her volume status. Her renal function will need to be followed. 4. Hyperlipidemia She will continue risk factor modification medical therapy as deemed ap propriate. 5. Hypertension Her blood pressure is low at this time. This may be secondary to her sepsis syndrome. She is avoiding medications would lower her blood pressure. 8. Pulmonary hypertension Her previous noninvasive and invasive studies are noted. Her most recent echocardiogram is as noted. Her estimated RV systolic pressures are noted. There is some concern as to the accuracy of these pressures based upon the technical difficulty obtaining the study. 9. Peripheral vascular disease She has been diagnosed with peripheral vascular disease. This may impacting her healing process. Podiatry has requested additional input from peripheral vascular surgery. 10. Diabetes mellitus related Charcot foot/infection She will continue evaluation care by internal medicine as well as podiatry. 11. Hepatic dysfunction Based upon her initial laboratory studies her hepatic studies/INR were repeated. They are markedly elevated. Her albumin and protein levels are low. The etiology is unclear at the moment. There is been a question as this is shock liver . However other etiologies have not necessarily been excluded. At the moment her medications are being adjusted to minimize any adverse interaction with her underlying hepatic system. This has included discontinuation of her IV amiodarone therapy. Also this included discontinuation of her anticoagulant therapy. She does need to be monitored for any concerns which could lead to sepsis related event such as DIC. She may need transfer to a tertiary care center for further GI/hepatology input. 12. Renal insufficiency Her creatinine level has increased despite her receiving IV fluids. Given its unclear whether this is related to her underlying sepsis syndrome with hypotension. Her elevated creatinine level does make it challenging to use certain medications to assist with her other medical conditions. She is being evaluated by nephrology. Overall, at the present time, her prognosis, barring a change in her clinical condition, appears to be poor. Discussion was held with her as to her once and wishes going forward with respect to ongoing evaluation and care. She states she will consider her options. If she does not respond to medical management and/or declines going forward with additional evaluation/care than she was asked to consider palliative/hospice care. Comment: The patient's case has been discussed and reviewed with the patient and Dr. Reyes. This note was generated using a voice recognition system and there may be incorrect words, spelling or punctuation that were not noted when reviewing the office note prior to saving.
[2020-04-23] MEDS: Furosemide 500 MG in Empty Viaflex 50 mL 1 EACH CONT INF (09:58)
[2020-04-23] MEDS: Menthol/Lanolin/Calamine/Znox 113 GM Tube 1 APPLIC TOPICAL ×2 (09:58→21:09)
[2020-04-23] MEDS: Nystatin Powder 15gm Bottle 1 APPLIC TOPICAL ×2 (09:59→21:09)
[2020-04-23] MEDS: Glucerna Shake 120 ML LIQUID PO (09:59)
--- NOTE | 2020-04-23 10:03 | PN_ITS ---
Subjective: Patient did okay overnight. Patient was never started on Levophed secondary to map being greater than 65 throughout the evening. Patient's urine output has been marginal, but patient has been weeping from her skin. Patient has remained on room air and has remained in tachycardia overnight. Patient is reporting that she wishes to be a full code, but wants to discuss with her sister prior to making any decisions about hemodialysis. General: Alert, Oriented x3, Cooperative, No apparent distress, - - No conversational dyspnea. Anasarca noted. HEENT: Atraumatic, PERRLA, EOMI, Normocephalic, - - Slight scleral injection without icterus Oral: Moist Mucosa, No Gingival or Mucosal Lesions/ Ulcerations Neck: Supple, No Nodes, Trachea Midline, JVD, Right Lungs: No rhonchi, No wheeze, Diminished, Rales - Right base Cardiovascular: Normal S1, Normal S2, No murmurs, Irregular Rate, No rub noted, No Gallop, Tachycardic Abdomen: Bowel Sounds Present, Soft, Non Tender, Non-Distended, Obese Extremities: No cyanosis, Edema, - - Fluid collection distal to blood pressure cuff Skin: - - No change compared to previous Musculoskeletal: No Tenderness to Palpation of Joints or Extremities Lymphatic: No Cervical, Supraclavicular, or Inguinal Adenopathy Neurological: Cranial nerves II-XII grossly intact, Neuro grossly intact, Motor Exam 5/5 strength throughout Psych/Mental Status: Alert and oriented to time, place, person, mood and affect Vital Signs Temp Pulse Resp BP Pulse Ox 36.7 C 122 H 23 H 97/71 96 04/23/20 06:00 04/23/20 09:00 04/23/20 09:00 04/23/20 09:00 04/23/20 09:00 Oxygen Flow Rate (L/min) 3 Oxygen Delivery Method Room Air Weight: 89.6 kg Body Mass Index (BMI) 31.7 Finger Stick Blood Glucose 394 Intake and Output for Last 24 Hours 04/21/20 04/22/20 04/23/20 23:59 23:59 23:59 Intake Total 4034.62 / 4034.62 1870.62 / 2019.62 800 / 800 Output Total 450 / 450 Balance 3584.62 / 3584.62 1850.62 / 1999.62 775 / 775 Labs (Last 48 Hours) 04/21/20 04/21/20 04/21/20 11:37 16:05 22:05 WBC RBC Hgb Hct MCV MCH MCHC RDW Std Deviation RDW Coeff of Blanca Plt Count MPV Immature Gran % (Auto) Neut % (Auto) Lymph % (Auto) [place] % (Auto) Eos % (Auto) Baso % (Auto) Absolute Neuts (auto) Absolute Lymphs (auto) Nucleated RBC % Differential Comment Acanthocytes (Spur) PT INR Sodium Potassium Chloride Carbon Dioxide Anion Gap BUN Creatinine Estim Creat Clear Calc Est GFR (MDRD) Af Amer Est GFR (MDRD) Non-Af BUN/Creatinine Ratio Glucose Calcium Total Bilirubin Direct Bilirubin AST ALT Alkaline Phosphatase Total Protein Albumin Globulin Vancomycin Trough Hepatitis A IgM Ab Hep Bs Antigen Hep B Core IgM Ab Hepatitis C Ab (EIA) POC Glucose 120 H 71 111 H 04/22/20 04/22/20 04/22/20 04:20 04:20 04:20 WBC 16.4 H RBC 3.94 L Hgb 11.0 L Hct 35.7 L MCV 90.6 MCH 27.9 MCHC 30.8 L RDW Std Deviation 62.2 H RDW Coeff of Blanca 19.3 H Plt Count 193 MPV 10.5 Immature Gran % (Auto) 3.300 H Neut % (Auto) 87.6 H Lymph % (Auto) 2.0 L [place] % (Auto) 6.3 Eos % (Auto) 0.4 Baso % (Auto) 0.4 Absolute Neuts (auto) 14.4 H Absolute Lymphs (auto) 0.32 L Nucleated RBC % 0.5 Differential Comment SCANNED Acanthocytes (Spur) PT 50.3 H INR 5.5 H* Sodium 135 L Potassium 4.8 Chloride 106 Carbon Dioxide 20.0 L Anion Gap 9 BUN 62 H Creatinine 1.87 H Estim Creat Clear Calc 18.34 Est GFR (MDRD) Af Amer 33 L Est GFR (MDRD) Non-Af 27 L BUN/Creatinine Ratio 33.2 H Glucose 127 H Calcium 6.7 L Total Bilirubin 1.20 H Direct Bilirubin 1.02 H AST 7297 H ALT 3207 H Alkaline Phosphatase 185 H Total Protein 4.7 L Albumin 2.3 L Globulin 2.4 Vancomycin Trough Hepatitis A IgM Ab Hep Bs Antigen Hep B Core IgM Ab Hepatitis C Ab (EIA) POC Glucose 04/22/20 04/22/20 04/22/20 08:30 13:49 13:50 WBC RBC Hgb Hct MCV MCH MCHC RDW Std Deviation RDW Coeff of Blanca Plt Count MPV Immature Gran % (Auto) Neut % (Auto) Lymph % (Auto) [place] % (Auto) Eos % (Auto) Baso % (Auto) Absolute Neuts (auto) Absolute Lymphs (auto) Nucleated RBC % Differential Comment Acanthocytes (Spur) PT INR Sodium Potassium Chloride Carbon Dioxide Anion Gap BUN Creatinine Estim Creat Clear Calc Est GFR (MDRD) Af Amer Est GFR (MDRD) Non-Af BUN/Creatinine Ratio Glucose Calcium Total Bilirubin Direct Bilirubin AST ALT Alkaline Phosphatase Total Protein Albumin Globulin Vancomycin Trough 19.9 H Hepatitis A IgM Ab Pending Hep Bs Antigen Pending Hep B Core IgM Ab Pending Hepatitis C Ab (EIA) Pending POC Glucose 98 04/22/20 04/22/20 04/22/20 17:10 22:19 23:34 WBC RBC Hgb Hct MCV MCH MCHC RDW Std Deviation RDW Coeff of Blanca Plt Count MPV Immature Gran % (Auto) Neut % (Auto) Lymph % (Auto) [place] % (Auto) Eos % (Auto) Baso % (Auto) Absolute Neuts (auto) Absolute Lymphs (auto) Nucleated RBC % Differential Comment Acanthocytes (Spur) PT INR Sodium Potassium Chloride Carbon Dioxide Anion Gap BUN Creatinine Estim Creat Clear Calc Est GFR (MDRD) Af Amer Est GFR (MDRD) Non-Af BUN/Creatinine Ratio Glucose Calcium Total Bilirubin Direct Bilirubin AST ALT Alkaline Phosphatase Total Protein Albumin Globulin Vancomycin Trough Hepatitis A IgM Ab Hep Bs Antigen Hep B Core IgM Ab Hepatitis C Ab (EIA) POC Glucose 74 64 L 99 04/23/20 04/23/20 04/23/20 01:58 02:46 06:05 WBC 13.5 H RBC 4.34 Hgb 11.8 L Hct 38.3 MCV 88.2 MCH 27.2 MCHC 30.8 L RDW Std Deviation 60.6 H RDW Coeff of Blanca 19.7 H Plt Count 141 L MPV 10.4 Immature Gran % (Auto) 4.700 H Neut % (Auto) 88.4 H Lymph % (Auto) 3.1 L [place] % (Auto) 3.5 Eos % (Auto) 0.0 Baso % (Auto) 0.3 Absolute Neuts (auto) 12.0 H Absolute Lymphs (auto) 0.42 L Nucleated RBC % 1.9 Differential Comment SCANNED Acanthocytes (Spur) 1+ PT INR Sodium Potassium Chloride Carbon Dioxide Anion Gap BUN Creatinine Estim Creat Clear Calc Est GFR (MDRD) Af Amer Est GFR (MDRD) Non-Af BUN/Creatinine Ratio Glucose Calcium Total Bilirubin Direct Bilirubin AST ALT Alkaline Phosphatase Total Protein Albumin Globulin Vancomycin Trough Hepatitis A IgM Ab Hep Bs Antigen Hep B Core IgM Ab Hepatitis C Ab (EIA) POC Glucose 69 L 89 04/23/20 04/23/20 04/23/20 06:05 06:05 06:16 WBC RBC Hgb Hct MCV MCH MCHC RDW Std Deviation RDW Coeff of Blanca Plt Count MPV Immature Gran % (Auto) Neut % (Auto) Lymph % (Auto) [place] % (Auto) Eos % (Auto) Baso % (Auto) Absolute Neuts (auto) Absolute Lymphs (auto) Nucleated RBC % Differential Comment Acanthocytes (Spur) PT 48.0 H INR 5.2 H* Sodium 134 L Potassium 5.5 H Chloride 104 Carbon Dioxide 20.0 L Anion Gap 10 BUN 78 H Creatinine 2.68 H Estim Creat Clear Calc 12.80 Est GFR (MDRD) Af Amer 22 L Est GFR (MDRD) Non-Af 18 L BUN/Creatinine Ratio 29.1 H Glucose 72 L Calcium 7.4 L Total Bilirubin 1.40 H Direct Bilirubin 1.12 H AST 6920 H ALT 3519 H Alkaline Phosphatase 229 H Total Protein 5.3 L Albumin 2.7 L Globulin 2.6 Vancomycin Trough Hepatitis A IgM Ab Hep Bs Antigen Hep B Core IgM Ab Hepatitis C Ab (EIA) POC Glucose 53 L 04/23/20 04/23/20 06:49 07:24 WBC RBC Hgb Hct MCV MCH MCHC RDW Std Deviation RDW Coeff of Blanca Plt Count MPV Immature Gran % (Auto) Neut % (Auto) Lymph % (Auto) [place] % (Auto) Eos % (Auto) Baso % (Auto) Absolute Neuts (auto) Absolute Lymphs (auto) Nucleated RBC % Differential Comment Acanthocytes (Spur) PT INR Sodium Potassium Chloride Carbon Dioxide Anion Gap BUN Creatinine Estim Creat Clear Calc Est GFR (MDRD) Af Amer Est GFR (MDRD) Non-Af BUN/Creatinine Ratio Glucose Calcium Total Bilirubin Direct Bilirubin AST ALT Alkaline Phosphatase Total Protein Albumin Globulin Vancomycin Trough Hepatitis A IgM Ab Hep Bs Antigen Hep B Core IgM Ab Hepatitis C Ab (EIA) POC Glucose 65 L 82 Microbiology 04/20/20 12:30 Wound - Left Foot Gram Stain - Final 04/20/20 12:30 Wound - Left Foot Wound Culture - Final Staphylococcus aureus Staphylococcus epidermidis Enterococcus faecalis Enterobacter cloacae complex 04/20/20 12:30 Wound - Left Foot Anaerobic Culture - Final No anaerobic bacteria isolated. 04/19/20 11:43 Blood Culture (Wb) - Left Hand Blood Culture - Preliminary No growth in 48 hours. 04/19/20 11:20 Blood Culture (Wb) - Anticubital Right Blood Culture - Preliminary No growth in 48 hours. Clinical Impression(s) from Imaging Studies Liver Ultrasound 04/22/20 08:24 IMPRESSION: Small amount of perihepatic fluid. Diffuse gallbladder wall thickening without pericholecystic fluid. Electronically Signed: Nestor Noonan, at 12:42 EDT , Service support , Chest X-Ray 04/22/20 13:45 IMPRESSION: The tip of the left PICC line catheter is at the junction of the superior vena cava and right atrium. Since prior study, has been improved aeration of both lungs. Electronically Signed: Nestor Noonan, at 14:07 EDT , Service support , Medical Necessity - Tobacco Use Smoking Status: Never smoker Assessment/Plan All Active Problems (Last Reviewed 01/09/20 @ 11:16 by Sandy GOLDMAN, PA) Diabetic infection of left foot (Acute) Paroxysmal atrial fibrillation with RVR (Acute) Lactic acidosis (Acute) Severe sepsis (Acute) Elevated serum creatinine (Acute) Hypotension (Acute) ULISSES (acute kidney injury) (Acute) Bronchitis (Acute) Ulcer of right lower extremity with fat layer exposed (Resolved) Ulcer of left lower extremity with fat layer exposed (Resolved) Chronic ulcer of left foot with fat layer exposed (Resolved) Chronic ulcer of right great toe with fat layer exposed (Resolved) Ulcer of left lower extremity with fat layer exposed (Resolved) Ulcer of right lower extremity with fat layer exposed (Resolved) Venous ulcers of both lower extremities (Resolved) Hyponatremia (Resolved) RECOMMENDATIONS: 1. Consider reinitiation of amiodarone per cardiology 2. Transition to cefepime for cellulitis 3. Await patient decision on hemodialysis. Appreciate nephrology input 4. Initiate a Lasix drip IMPRESSIONS: 1. Severe sepsis secondary to diabetic foot ulcer with Charcot foot Patient reportedly has poor hygiene habits at baseline, likely leading to infection. Patient with Charcot foot and elevated CRP was significant concern for osteomyelitis. Patient currently being treated with vancomycin and Zosyn, but wound culture is showing multiple organisms. We will transition to cefepime therapy. Podiatry has been consulted and completed debridement with plans to address Charcot joint as an outpatient. Patient does have pulmonary hypertension, likely type II, at baseline so we will try to limit volume resuscitation. Initiate pressors if patient becomes hypotensive to help with renal perfusion 2. A. fib with RVR/chronic diastolic CHF Patient appears to have responded well to amiodarone bolus and drip from a rate perspective. May need to discontinue amiodarone from a hepatitis standpoint. Appreciate cardiology for long-term recommendations and optimization, especially given the need for possible surgery in the near future. Consider holding Lipitor in the near future given liver function studies 3. Diabetes mellitus type 2 leading to peripheral vascular disease, Charcot foot and diabetic foot ulcer Hold oral hypoglycemics given possibility of surgery and variable p.o. intake. Monitor with sliding scale insulin. Patient may need to be transitioned to insulin therapy for better control, but defer to endocrine as an outpatient. 4. Social concerns/pulmonary hypertension/hypertension/hyperlipidemia/advanced age/obesity Complicates care, management, recovery and prognosis. Case management to evaluate patient's living situation. Blood pressure medications have been held secondary to acute condition. Obesity does complicate recovery from Charcot joint. 5. Acute hepatitis Exact etiology is unclear at this time. Some concern for hepatorenal syndrome. Discussed with hospitalist and will attempt a Lasix drip. Slightly improved today, but doubt this is from discontinuation of amiodarone given the half-life. Inpatient E&M: [id number] [facility] H[facility] L3
--- NOTE | 2020-04-23 10:12 | NURSING ---
Nursing concerned about some edema noted to to the right arm below the blood pressure cuff. removed cuff to assess area. patient has 2 saline locks in the right AC. appears to be more of an IV infiltrate. patient is edematous throughout though. will monitor area. nursing states she will remove the one saline lock since patient has other IV access as well.
--- NOTE | 2020-04-23 10:18 | CASEMGMT ---
Social Work SW attended pt rounds. Per physician, Pt will not be ready for discharge over the weekend. Phone call to [facility] and notified Rosanne that pt will remain hospitalized over the weekend and SILVIO will follow up with the [facility] on Sunday. Plan: [facility], when medically ready THERESA Evans
--- NOTE | 2020-04-23 10:26 | PCM.PROGNOTE ---
Patient Problems: Active and Suspected Problems (Last Reviewed 01/09/20 @ 11:16 by Sandy Hopson PA, PA) Diabetic infection of left foot (Acute) Paroxysmal atrial fibrillation with RVR (Acute) Lactic acidosis (Acute) Severe sepsis (Acute) Elevated serum creatinine (Acute) Hypotension (Acute) ULISSES (acute kidney injury) (Acute) Subjective: Patient was seen this morning for follow up on left foot ulceration / infection. Patient has no new foot/ankle leg complaints. Dialysis is being considered. - Physical Exam Vitals/I&O's: Vital Signs Temp Pulse Resp BP Pulse Ox 98.1 F 122 H 23 H 97/71 96 04/23/20 06:00 04/23/20 09:00 04/23/20 09:00 04/23/20 09:00 04/23/20 09:00 Oxygen Flow Rate (L/min) 3 Oxygen Delivery Method Room Air Weight: 89.6 kg Body Mass Index (BMI) 31.7 Finger Stick Blood Glucose 394 Intake and Output for Last 24 Hours 04/21/20 04/22/20 04/23/20 23:59 23:59 23:59 Intake Total 4034.62 / 4034.62 1870.62 / 2019.62 850 / 850 Output Total 450 / 450 Balance 3584.62 / 3584.62 1850.62 / 1999.62 825 / 825 General: Alert, Cooperative, No apparent distress Extremities: Capillary Refill Less than 3 Seconds, - - s/p debridement left foot ulceration with healthy viable tissue, margins intact, very minimal residual erythema present, ulcer is healing; no visible abscess, no fluctuance to the foot/ankle or leg. No other ulcerations to the foot/ankle or leg bilateral. No evidence of acute ischemia to the foot/ankle/leg bilateral. Chronic charcot foot, left. Microbiology Past 72 Hours 04/20/20 12:30 Wound - Left Foot Gram Stain - Final 04/20/20 12:30 Wound - Left Foot Wound Culture - Final Staphylococcus aureus Staphylococcus epidermidis Enterococcus faecalis Enterobacter cloacae complex 04/20/20 12:30 Wound - Left Foot Anaerobic Culture - Final No anaerobic bacteria isolated. 04/19/20 11:43 Blood Culture (Wb) - Left Hand Blood Culture - Preliminary No growth in 48 hours. 04/19/20 11:20 Blood Culture (Wb) - Anticubital Right Blood Culture - Preliminary No growth in 48 hours. Laboratory Results 04/22/20 13:49: POC Glucose 98 04/22/20 13:50: Vancomycin Trough 19.9 H 04/22/20 17:10: POC Glucose 74 04/22/20 22:19: POC Glucose 64 L 04/22/20 23:34: POC Glucose 99 04/23/20 01:58: POC Glucose 69 L 04/23/20 02:46: POC Glucose 89 04/23/20 06:05: WBC 13.5 H, RBC 4.34, Hgb 11.8 L, Hct 38.3, MCV 88.2, MCH 27.2, MCHC 30.8 L, RDW Std Deviation 60.6 H, RDW Coeff of Blanca 19.7 H, Plt Count 141 L, MPV 10.4, Immature Gran % (Auto) 4.700 H, Neut % (Auto) 88.4 H, Lymph % (Auto) 3.1 L, [place] % (Auto) 3.5, Eos % (Auto) 0.0, Baso % (Auto) 0.3, Absolute Neuts (auto) 12.0 H, Absolute Lymphs (auto) 0.42 L, Nucleated RBC % 1.9, Differential Comment SCANNED, Acanthocytes (Spur) 1+ 04/23/20 06:05: PT 48.0 H, INR 5.2 H* 04/23/20 06:05: Sodium 134 L, Potassium 5.5 H, Chloride 104, Carbon Dioxide 20.0 L, Anion Gap 10, BUN 78 H, Creatinine 2.68 H, Estim Creat Clear Calc 12.80, Est GFR (MDRD) Af Amer 22 L, Est GFR (MDRD) Non-Af 18 L, BUN/Creatinine Ratio 29.1 H, Glucose 72 L, Calcium 7.4 L, Total Bilirubin 1.40 H, Direct Bilirubin 1.12 H, AST 6920 H, ALT 3519 H, Alkaline Phosphatase 229 H, Total Protein 5.3 L, Albumin 2.7 L, Globulin 2.6 04/23/20 06:16: POC Glucose 53 L 04/23/20 06:49: POC Glucose 65 L 04/23/20 07:24: POC Glucose 82 Current Medications Acetaminophen (Tylenol) 650 mg PO Q6H PRN PRN PRN Reason: Pain Score 1-10/Temp > 100.7 F Last Admin: 04/21/20 08:19 Dose: 650 mg Documented by: Calamine/Phenol (Calmoseptine Ointment) 1 applic TOPICAL BID [facility]; Protocol Last Admin: 04/23/20 09:58 Dose: 1 applicatio Documented by: Dextrose (D50w Syringe) 0 gm IV X1 PRN; Protocol PRN Reason: Hypoglycemia Glucagon () 1 mg IM .X1 PRN PRN Reason: Hypoglycemia Vancomycin IV Pharmacy to Dose (1 ea/ Sodium Chloride) 500 mls @ 250 mls/hr IV PRN PRN; Protocol PRN Reason: Rx to Dose Sodium Chloride () 250 mls @ 15 mls/hr IV .[id number] PRN PRN Reason: Saline Flush Last Infusion: 04/22/20 18:20 Dose: 0 mls/hr Documented by: Sodium Chloride () 250 mls @ 15 mls/hr IV .[id number] PRN PRN Reason: Additional IVPB Infusion Norepinephrine Bitartrate 8 mg (/ Sodium Chloride) 250 mls @ 9.375 mls/hr CONT INF .[id number] [facility]; Protocol Last Admin: 04/23/20 07:38 Dose: Not Given Documented by: Furosemide 500 mg/ N/A 50 mls @ 1 mls/hr CONT INF .Q50H [facility] Last Admin: 04/23/20 09:58 Dose: 10 mg/hr, 1 mls/hr Documented by: Insulin Glargine (Lantus (Bkc)) 10 units SC QHS [facility] Last Admin: 04/22/20 22:29 Dose: Not Given Documented by: Insulin Human Lispro (Humalog Kwikpen (Bkc)) 0 unit SC ACHS [facility]; Protocol Last Admin: 04/23/20 06:22 Dose: Not Given Documented by: Insulin Human Lispro (Humalog Kwikpen (Bkc)) 5 unit SC TIDAC [facility] Last Admin: 04/23/20 06:22 Dose: Not Given Documented by: Menthol (Bengay Vanishing Scent) 1 applic TOPICAL 4X/DAY PRN PRN PRN Reason: knee pain Last Admin: 04/23/20 06:07 Dose: 1 applic Documented by: Nutritional Formula (Lactose Free) (Dionte Hernández) 120 ml PO 4X/DAY DONNIE Last Admin: 04/23/20 09:59 Dose: 120 ml Documented by: Nystatin (Mycostatin Powder) 1 applic TOPICAL BID DONNIE; Protocol Last Admin: 04/23/20 09:59 Dose: 1 applicatio Documented by: Ondansetron HCl (Zofran) 4 mg IV Q8H PRN PRN PRN Reason: NAUSEA/VOMITING Sodium Chloride () 10 - 40 ml IV UD PRN PRN Reason: SALINE FLUSH Last Admin: 04/23/20 06:32 Dose: 20 ml Documented by: Medical Necessity - Tobacco Use Smoking Status: Never smoker Assessment/Plan All Active Problems (Last Reviewed 01/09/20 @ 11:16 by Sandy Hopson PA, PA) Diabetic infection of left foot (Acute) Paroxysmal atrial fibrillation with RVR (Acute) Lactic acidosis (Acute) Severe sepsis (Acute) Elevated serum creatinine (Acute) Hypotension (Acute) ULISSES (acute kidney injury) (Acute) Bronchitis (Acute) Ulcer of right lower extremity with fat layer exposed (Resolved) Ulcer of left lower extremity with fat layer exposed (Resolved) Chronic ulcer of left foot with fat layer exposed (Resolved) Chronic ulcer of right great toe with fat layer exposed (Resolved) Ulcer of left lower extremity with fat layer exposed (Resolved) Ulcer of right lower extremity with fat layer exposed (Resolved) Venous ulcers of both lower extremities (Resolved) Hyponatremia (Resolved) Ulceration down to subcutaneous tissue left foot Cellulitis left lower extremity - much improved Charcot neuroarthropathy left foot PVD lower extremity Diabetes, RA, and multiple comorbidities Reviewed diagnostic data. Foot MRI with no evidence of osteomyelitis. Clinically left foot much improved from infection standpoint. Reviewed culture results - multiple organisms, patient on IV antibiotic therapy. No plans for foot/ankle surgery. We will plan to proceed with bracing, a CAM Walker was ordered for patient, and care home a custom AFO to brace foot/ankle and offload ulceration site. Wound care left foot: Change daily using Aquacel Ag and gauze, kerlix and silvia. No weightbearing left foot. Reviewed lower extremity arterial studies and noted to be PAD present, patient with severe PAD to the lower extremity, vascular has been consulted. Patient with multiple medical problems and managed/followed by medicine, cardiology and nephrology teams. Podiatry will continue to follow.
--- NOTE | 2020-04-23 10:45 | NURSING ---
Called to pt room by WELDER OPERATOR. Lg amt blood on pillow and bed. PIV site d/c'd approx 15 min ago now bleeding perfusely. Pressure applied to area and Dr. López called to bedside. Ordered CBC and Coags.
[2020-04-23 11:14] LABS: Absolute Lymphocyte Count 0.37 X10^3/uL (0.83-4.51); Absolute Neutrophil Count 12.8 X10^3/uL (2.0-7.7); Basophil# 0.09 X10^3/uL; Basophil% 0.6 % (0-1); Eosinophils% 0.7 % (0-5); Hematocrit 38.1 % (37-47); Hemoglobin 11.9 g/dL (12.0-15.0); Lymphocyte # 0.37 X10^3/ul (4.0); Lymphocyte % 2.5 % (19-41); Mean Corp Hgb Conc 31.2 g/dL (32-36); Mean Corpuscular Hgb 27.9 pg (27.0-32.0); Mean Corpuscular Volume 89.4 fL (81-99); Mean Platelet Vol. 10.4 fl (6.2-12.0); Monocyte# 0.61 X10^3/uL; Monocyte% 4.1 % (0-10); Neutrophil # 12.81 X10^3/uL (2.7-7.7); Neutrophil % 87.1 % (47-70); POSITIVE DIFFERENTIAL YES; Platelet Count 131 K/mm3 (150-450); RBC Distribution Width CV 19.9 % (11.6-14.6); RBC Distribution Width SD 61.1 fl (35.1-43.9); Red Blood Count 4.26 M/mm3 (4.2-5.4); White Blood Count 14.7 K/mm3 (4.4-11.0)
--- NOTE | 2020-04-23 11:16 | PN_ITS ---
Patient Problems: Active and Suspected Problems (Last Reviewed 01/09/20 @ 11:16 by Sandy Hopson PA, PA) Diabetic infection of left foot (Acute) Paroxysmal atrial fibrillation with RVR (Acute) Lactic acidosis (Acute) Severe sepsis (Acute) Elevated serum creatinine (Acute) Hypotension (Acute) ULISSES (acute kidney injury) (Acute) Subjective: Pressures overnight, did not need to start Levophed Vitals/I&O's: Vital Signs Temp Pulse Resp BP Pulse Ox 98.1 F 112 H 26 H 94/62 97 04/23/20 06:00 04/23/20 11:00 04/23/20 11:00 04/23/20 11:00 04/23/20 11:00 Oxygen Flow Rate (L/min) 2 Oxygen Delivery Method Nasal Cannula Weight: 197 lb 8.547 oz Body Mass Index (BMI) 31.7 Finger Stick Blood Glucose 394 Intake and Output for Last 24 Hours 04/21/20 04/22/20 04/23/20 23:59 23:59 23:59 Intake Total 4034.62 / 4034.62 1870.62 / 2019.62 850 / 850 Output Total 450 / 450 34 / 34 Balance 3584.62 / 3584.62 1850.62 / 1999.62 816 / 816 Microbiology Past 72 Hours 04/20/20 12:30 Wound - Left Foot Gram Stain - Final 04/20/20 12:30 Wound - Left Foot Wound Culture - Final Staphylococcus aureus Staphylococcus epidermidis Enterococcus faecalis Enterobacter cloacae complex 04/20/20 12:30 Wound - Left Foot Anaerobic Culture - Final No anaerobic bacteria isolated. 04/19/20 11:43 Blood Culture (Wb) - Left Hand Blood Culture - Preliminary No growth in 48 hours. 04/19/20 11:20 Blood Culture (Wb) - Anticubital Right Blood Culture - Preliminary No growth in 48 hours. Laboratory Results 04/22/20 13:49: POC Glucose 98 04/22/20 13:50: Vancomycin Trough 19.9 H 04/22/20 17:10: POC Glucose 74 04/22/20 22:19: POC Glucose 64 L 04/22/20 23:34: POC Glucose 99 04/23/20 01:58: POC Glucose 69 L 04/23/20 02:46: POC Glucose 89 04/23/20 06:05: WBC 13.5 H, RBC 4.34, Hgb 11.8 L, Hct 38.3, MCV 88.2, MCH 27.2, MCHC 30.8 L, RDW Std Deviation 60.6 H, RDW Coeff of Blanca 19.7 H, Plt Count 141 L, MPV 10.4, Immature Gran % (Auto) 4.700 H, Neut % (Auto) 88.4 H, Lymph % (Auto) 3.1 L, [place] % (Auto) 3.5, Eos % (Auto) 0.0, Baso % (Auto) 0.3, Absolute Neuts (auto) 12.0 H, Absolute Lymphs (auto) 0.42 L, Nucleated RBC % 1.9, Differential Comment SCANNED, Acanthocytes (Spur) 1+ 04/23/20 06:05: PT 48.0 H, INR 5.2 H* 04/23/20 06:05: Sodium 134 L, Potassium 5.5 H, Chloride 104, Carbon Dioxide 20.0 L, Anion Gap 10, BUN 78 H, Creatinine 2.68 H, Estim Creat Clear Calc 12.80, Est GFR (MDRD) Af Amer 22 L, Est GFR (MDRD) Non-Af 18 L, BUN/Creatinine Ratio 29.1 H , Glucose 72 L, Calcium 7.4 L, Total Bilirubin 1.40 H, Direct Bilirubin 1.12 H, AST 6920 H, ALT 3519 H, Alkaline Phosphatase 229 H, Total Protein 5.3 L, Albumin 2.7 L, Globulin 2.6 04/23/20 06:16: POC Glucose 53 L 04/23/20 06:49: POC Glucose 65 L 04/23/20 07:24: POC Glucose 82 04/23/20 10:55: WBC Pending, RBC Pending, Hgb Pending, Hct Pending, MCV Pending, MCH Pending, MCHC Pending, RDW Std Deviation Pending, RDW Coeff of Blanca Pending, Plt Count Pending, Neut % (Auto) Pending, Absolute Neuts (auto) Pending 04/23/20 10:55: PT Pending, INR Pending, APTT Pending Current Medications Acetaminophen (Tylenol) 650 mg PO Q6H PRN PRN PRN Reason: Pain Score 1-10/Temp > 100.7 F Last Admin: 04/21/20 08:19 Dose: 650 mg Documented by: Calamine/Phenol (Calmoseptine Ointment) 1 applic TOPICAL BID [facility]; Protocol Last Admin: 04/23/20 09:58 Dose: 1 applicatio Documented by: Dextrose (D50w Syringe) 0 gm IV X1 PRN; Protocol PRN Reason: Hypoglycemia Glucagon () 1 mg IM .X1 PRN PRN Reason: Hypoglycemia Vancomycin IV Pharmacy to Dose (1 ea/ Sodium Chloride) 500 mls @ 250 mls/hr IV PRN PRN; Protocol PRN Reason: Rx to Dose Sodium Chloride () 250 mls @ 15 mls/hr IV .[id number] PRN PRN Reason: Saline Flush Last Infusion: 04/22/20 18:20 Dose: 0 mls/hr Documented by: Sodium Chloride () 250 mls @ 15 mls/hr IV .[id number] PRN PRN Reason: Additional IVPB Infusion Norepinephrine Bitartrate 8 mg (/ Sodium Chloride) 250 mls @ 9.375 mls/hr CONT INF .[id number] [facility]; Protocol Last Admin: 04/23/20 07:38 Dose: Not Given Documented by: Furosemide 500 mg/ N/A 50 mls @ 1 mls/hr CONT INF .Q50H [facility] Last Admin: 04/23/20 09:58 Dose: 10 mg/hr, 1 mls/hr Documented by: Cefepime HCl 2 gm/ Sodium (Chloride) 100 mls @ 200 mls/hr IV Q24 [facility] Insulin Glargine (Lantus (Bkc)) 10 units SC QHS [facility] Last Admin: 04/22/20 22:29 Dose: Not Given Documented by: Insulin Human Lispro (Humalog Kwikpen (Bkc)) 0 unit SC ACHS [facility]; Protocol Last Admin: 04/23/20 06:22 Dose: Not Given Documented by: Insulin Human Lispro (Humalog Kwikpen (Bkc)) 5 unit SC TIDAC [facility] Last Admin: 04/23/20 06:22 Dose: Not Given Documented by: Menthol (Bengay Vanishing Scent) 1 applic TOPICAL 4X/DAY PRN PRN PRN Reason: knee pain Last Admin: 04/23/20 06:07 Dose: 1 applic Documented by: Nutritional Formula (Lactose Free) (Glucerna Shake) 120 ml PO 4X/DAY [facility] Last Admin: 04/23/20 09:59 Dose: 120 ml Documented by: Nystatin (Mycostatin Powder) 1 applic TOPICAL BID [facility]; Protocol Last Admin: 04/23/20 09:59 Dose: 1 applicatio Documented by: Ondansetron HCl (Zofran) 4 mg IV Q8H PRN PRN PRN Reason: NAUSEA/VOMITING Senna/Docusate Sodium (Senokot-S, Jessie-Colace) 2 tablet PO BID [facility] Last Admin: 04/23/20 10:30 Dose: Not Given Documented by: Sodium Chloride () 10 - 40 ml IV UD PRN PRN Reason: SALINE FLUSH Last Admin: 04/23/20 06:32 Dose: 20 ml Documented by: STROKE Vital Signs/Narrative: Vital Signs Pulse Resp BP Pulse Ox 04/23/20 11:00 112 H 26 H 94/62 97 04/23/20 10:00 118 H 32 H 113/72 96 04/23/20 09:00 122 H 23 H 97/71 96 04/23/20 08:00 123 H 24 H 108/76 95 Medical Necessity - Tobacco Use Smoking Status: Never smoker Assessment/Plan All Active Problems (Last Reviewed 01/09/20 @ 11:16 by Sandy Hopson PA, PA) Diabetic infection of left foot (Acute) Paroxysmal atrial fibrillation with RVR (Acute) Lactic acidosis (Acute) Severe sepsis (Acute) Elevated serum creatinine (Acute) Hypotension (Acute) ULISSES (acute kidney injury) (Acute) Bronchitis (Acute) Ulcer of right lower extremity with fat layer exposed (Resolved) Ulcer of left lower extremity with fat layer exposed (Resolved) Chronic ulcer of left foot with fat layer exposed (Resolved) Chronic ulcer of right great toe with fat layer exposed (Resolved) Ulcer of left lower extremity with fat layer exposed (Resolved) Ulcer of right lower extremity with fat layer exposed (Resolved) Venous ulcers of both lower extremities (Resolved) Hyponatremia (Resolved) 1. Severe sepsis secondary to diabetic foot ulcer with cellulitis/Charcot foot -She is supposed to have surgery tomorrow with podiatry because of her Charcot foot, will consult podiatry -She has not showered over a week and has not been following with the wound care center -Leukocytosis of 18.4, and tachycardia likely related to her A. fib -Continue with vancomycin and Zosyn given the polymicrobial nature of diabetic ulcers -Lactate greater than 2.2 consistent with severe sepsis therefore she was placed in the ICU with an net programmer analyst consult -Wound culture with staph aureus, staph epidermidis, enterococcus, and Enterobacter, covered by the bank and Zosyn -MRI with no osteomyelitis, arterial studies show very poor blood flow to her lower extremities 2. Paroxysmal A. fib/pulmonary hypertension/chronic diastolic CHF and acute systolic CHF exacerbation/HTN/HLD -We will hold her lisinopril given her renal dysfunction and her soft blood pressures -She had an echo in 2019 with an EF of 65% and concentric left ventricular hypertrophy with pulmonary hypertension and of our RVSP of 57 mmHg and diastolic dysfunction. Repeat echo this admission with an EF of 30% with severely dilated right ventricle and an RVSP of 33 mmHg -We will proceed with a Lasix drip -Amiodarone was discontinued secondary to possible hepatotoxicity -Cardiology was consulted to assist in management 3. Acute liver failure -She had an acute rise in her INR from 2.2 to 5.5 despite not being on Coumadin and only being on Eliquis -LFTs sushma from in the 60s to over 7000 for the AST and 3000 for the ALT. She also had a jump in her total bilirubin from 0.7-1.2 with a direct bilirubin of 1.02 -Hepatitis panel is pending, amiodarone was discontinued -It is possible a right-sided ventricular failure is the cause of her acute liver failure. Ultrasound of her liver was unremarkable did show diffuse ga llbladder wall thickening without pericholecystic fluid however she does not have any right upper quadrant abdominal pain. 4. Acute renal failure -Appreciate nephrology input. On admission her creatinine is 1.56 and it has risen to 2.68 looks like baseline creatinine is around 0.6 -She is also now anuric and her creatinine worsened despite IV fluids -80 mg IV Lasix were given without any production of urine. Continue with the Lasix drip for now, renal function has worsened -On review of her labs, her renal failure was present on admission -She would like to discuss with her sister she should do dialysis, but for now she would like to be full code 3. DM 2 with diabetic foot ulcer and Charcot foot -We will hold her oral hypoglycemics and transition her to a sliding scale insulin -Continue with Lantus 10 units at night -Prabhakaru-Zaida GÓMEZ at bedtime DVT: Supratherapeutic INR Inpatient E&M: 59133 Subs Hosp L2
[2020-04-23 11:19] LABS: Partial Thromboplast Time 43.3 Seconds (24.1-36.2); Prothrombin Time (Protime)PT. 51.3 SECONDS (11.7-14.9)
[2020-04-23 11:26] LABS: International Normalized Ratio 5.7
[2020-04-23 11:34] LABS: Differential Indicated SCAN CRITERIA MET
[2020-04-23 11:56] LABS: Bedside Glucose 86 mg/dL (70-110)
[2020-04-23] MEDS: Phytonadione (Vit K1) 5 MG TABLET PO (12:55)
[2020-04-23] MEDS: Furosemide 100 MG/10 ML Vial 80 MG IV (13:00)
--- NOTE | 2020-04-23 13:27 | PCM.PN.REN ---
Patient Problems: Active and Suspected Problems (Last Reviewed 01/09/20 @ 11:16 by Sandy Hopson PA, PA) Diabetic infection of left foot (Acute) Paroxysmal atrial fibrillation with RVR (Acute) Lactic acidosis (Acute) Severe sepsis (Acute) Elevated serum creatinine (Acute) Hypotension (Acute) ULISSES (acute kidney injury) (Acute) Subjective: no new events - Physical Exam Vitals/I&O's: Vital Signs Temp Pulse Resp BP Pulse Ox 98.1 F 125 H 26 H 94/62 97 04/23/20 06:00 04/23/20 12:00 04/23/20 11:00 04/23/20 11:00 04/23/20 11:00 Oxygen Flow Rate (L/min) 2 Oxygen Delivery Method Room Air Weight: 89.6 kg Body Mass Index (BMI) 31.7 Finger Stick Blood Glucose 394 Intake and Output for Last 24 Hours 04/21/20 04/22/20 04/23/20 23:59 23:59 23:59 Intake Total 4034.62 / 4034.62 187.62 / 2019. 850 / 850 Output Total 450 / 450 34 / 34 Balance 3584.62 / 3584.62 1850.62 / 1999.62 816 / 816 General: Alert, Oriented x3, Cooperative HEENT: Atraumatic, PERRLA, EOMI, Normocephalic Neck: Supple, No JVD, Negative Carotid Bruits Lungs: Clear to auscultation, Normal air movement Cardiovascular: Regular rate, No murmurs Abdomen: Bowel Sounds Present, Soft, Non Tender Extremities: No edema, Capillary Refill Less than 3 Seconds Skin: No rashes, No breakdown Musculoskeletal: No Tenderness to Palpation of Joints or Extremities Neurological: Cranial nerves II-XII grossly intact Psych/Mental Status: Normal Affect, Appropriate Microbiology Past 72 Hours 04/20/20 12:30 Wound - Left Foot Gram Stain - Final 04/20/20 12:30 Wound - Left Foot Wound Culture - Final Staphylococcus aureus Staphylococcus epidermidis Enterococcus faecalis Enterobacter cloacae complex 04/20/20 12:30 Wound - Left Foot Anaerobic Culture - Final No anaerobic bacteria isolated. 04/19/20 11:43 Blood Culture (Wb) - Left Hand Blood Culture - Preliminary No growth in 48 hours. 04/19/20 11:20 Blood Culture (Wb) - Anticubital Right Blood Culture - Preliminary No growth in 48 hours. Laboratory Results 04/22/20 13:49: POC Glucose 98 04/22/20 13:50: Vancomycin Trough 19.9 H 04/22/20 17:10: POC Glucose 74 04/22/20 22:19: POC Glucose 64 L 04/22/20 23:34: POC Glucose 99 04/23/20 01:58: POC Glucose 69 L 04/23/20 02:46: POC Glucose 89 04/23/20 06:05: WBC 13.5 H, RBC 4.34, Hgb 11.8 L, Hct 38.3, MCV 88.2, MCH 27.2, MCHC 30.8 L, RDW Std Deviation 60.6 H, RDW Coeff of Blanca 19.7 H, Plt Count 141 L, MPV 10.4, Immature Gran % (Auto) 4.700 H, Neut % (Auto) 88.4 H, Lymph % (Auto) 3.1 L, [place] % (Auto) 3.5, Eos % (Auto) 0.0, Baso % (Auto) 0.3, Absolute Neuts (auto) 12.0 H, Absolute Lymphs (auto) 0.42 L, Nucleated RBC % 1.9, Differential Comment SCANNED, Acanthocytes (Spur) 1+ 04/23/20 06:05: PT 48.0 H, INR 5.2 H* 04/23/20 06:05: Sodium 134 L, Potassium 5.5 H, Chloride 104, Carbon Dioxide 20.0 L, Anion Gap 10, BUN 78 H, Creatinine 2.68 H, Estim Creat Clear Calc 12.80, Est GFR (MDRD) Af Amer 22 L, Est GFR (MDRD) Non-Af 18 L, BUN/Creatinine Ratio 29.1 H, Glucose 72 L, Calcium 7.4 L, Total Bilirubin 1.40 H, Direct Bilirubin 1.12 H, AST 6920 H, ALT 3519 H, Alkaline Phosphatase 229 H, Total Protein 5.3 L, Albumin 2.7 L, Globulin 2.6 04/23/20 06:16: POC Glucose 53 L 04/23/20 06:49: POC Glucose 65 L 04/23/20 07:24: POC Glucose 82 04/23/20 10:55: WBC 14.7 H, RBC 4.26, Hgb 11.9 L, Hct 38.1, MCV 89.4, MCH 27.9, MCHC 31.2 L, RDW Std Deviation 61.1 H, RDW Coeff of Blanca 19.9 H, Plt Count 131 L, MPV 10.4, Immature Gran % (Auto) 5.000 H, Neut % (Auto) 87.1 H, Lymph % (Auto) 2.5 L, [place] % (Auto) 4.1, Eos % (Auto) 0.7, Baso % (Auto) 0.6, Absolute Neuts (auto) 12.8 H, Absolute Lymphs (auto) 0.37 L, Nucleated RBC % 2.0 04/23/20 10:55: PT 51.3 H, INR 5.7 H*, APTT 43.3 H 04/23/20 11:49: POC Glucose 86 04/23/20 12:45: Blood Type Pending Current Medications Acetaminophen (Tylenol) 650 mg PO Q6H PRN PRN PRN Reason: Pain Score 1-10/Temp > 100.7 F Last Admin: 04/21/20 08:19 Dose: 650 mg Documented by: Calamine/Phenol (Calmoseptine Ointment) 1 applic TOPICAL BID [facility]; Protocol Last Admin: 04/23/20 09:58 Dose: 1 applicatio Documented by: Dextrose (D50w Syringe) 0 gm IV X1 PRN; Protocol PRN Reason: Hypoglycemia Glucagon () 1 mg IM .X1 PRN PRN Reason: Hypoglycemia Vancomycin IV Pharmacy to Dose (1 ea/ Sodium Chloride) 500 mls @ 250 mls/hr IV PRN PRN; Protocol PRN Reason: Rx to Dose Sodium Chloride () 250 mls @ 15 mls/hr IV .[id number] PRN PRN Reason: Saline Flush Last Infusion: 04/22/20 18:20 Dose: 0 mls/hr Documented by: Sodium Chloride () 250 mls @ 15 mls/hr IV .[id number] PRN PRN Reason: Additional IVPB Infusion Norepinephrine Bitartrate 8 mg (/ Sodium Chloride) 250 mls @ 9.375 mls/hr CONT INF .[id number] [facility]; Protocol Last Admin: 04/23/20 07:38 Dose: Not Given Documented by: Furosemide 500 mg/ N/A 50 mls @ 1 mls/hr CONT INF .Q50H [facility] Last Admin: 04/23/20 09:58 Dose: 10 mg/hr, 1 mls/hr Documented by: Cefepime HCl 2 gm/ Sodium (Chloride) 100 mls @ 200 mls/hr IV Q24 [facility] Insulin Glargine (Lantus (Bkc)) 10 units SC QHS [facility] Last Admin: 04/22/20 22:29 Dose: Not Given Documented by: Insulin Human Lispro (Humalog Kwikpen (Bkc)) 0 unit SC ACHS [facility]; Protocol Last Admin: 04/23/20 11:50 Dose: Not Given Documented by: Insulin Human Lispro (Humalog Kwikpen (Bkc)) 5 unit SC TIDAC [facility] Last Admin: 04/23/20 11:50 Dose: Not Given Documented by: Menthol (Bengay Vanishing Scent) 1 applic TOPICAL 4X/DAY PRN PRN PRN Reason: knee pain Last Admin: 04/23/20 06:07 Dose: 1 applic Documented by: Nutritional Formula (Lactose Free) (Glucerna Shake) 120 ml PO 4X/DAY [facility] Last Admin: 04/23/20 09:59 Dose: 120 ml Documented by: Nystatin (Mycostatin Powder) 1 applic TOPICAL BID [facility]; Protocol Last Admin: 04/23/20 09:59 Dose: 1 applicatio Documented by: Ondansetron HCl (Zofran) 4 mg IV Q8H PRN PRN PRN Reason: NAUSEA/VOMITING Senna/Docusate Sodium (Senokot-S, Jessie-Colace) 2 tablet PO BID [facility] Last Admin: 04/23/20 10:30 Dose: Not Given Documented by: Sodium Chloride () 10 - 40 ml IV UD PRN PRN Reason: SALINE FLUSH Last Admin: 04/23/20 06:32 Dose: 20 ml Documented by: Medical Necessity - Tobacco Use Smoking Status: Never smoker Assessment/Plan All Active Problems (Last Reviewed 01/09/20 @ 11:16 by Sandy Hopson PA, PA) Diabetic infection of left foot (Acute) Paroxysmal atrial fibrillation with RVR (Acute) Lactic acidosis (Acute) Severe sepsis (Acute) Elevated serum creatinine (Acute) Hypotension (Acute) ULISSES (acute kidney injury) (Acute) Bronchitis (Acute) Ulcer of right lower extremity with fat layer exposed (Resolved) Ulcer of left lower extremity with fat layer exposed (Resolved) Chronic ulcer of left foot with fat layer exposed (Resolved) Chronic ulcer of right great toe with fat layer exposed (Resolved) Ulcer of left lower extremity with fat layer exposed (Resolved) Ulcer of right lower extremity with fat layer exposed (Resolved) Venous ulcers of both lower extremities (Resolved) Hyponatremia (Resolved) ULISSES. normal baseline as of november 2019. admitted with multiple medical issues. arevalo in with no urine output. this has been flushed likely developed severe shock liver and likely ischemic ATN in setting of hypotension K is borderline high CXR is somewhat wet looking has moderate peripheral edema failed lasix challenge at 80 mg clinically worse. BUN and cr are worse. remains anuric. LFTs remain high. started on lasix drip this am. no urine output so far. give bolus lasix now overall prognosis appears to be poor I asked her about dialysis and she says she will talk to her sister I called the sister at numbers listed with no answer
[2020-04-23 14:10] LABS: Hep C Antibodies <0.1 s/co ratio (0.0-0.9)
[2020-04-23 16:46] LABS: Bedside Glucose 107 mg/dL (70-110)
[2020-04-23] MEDS: Cefepime HCl 2 GM in 0.9% NS 100 ML Minibag Q12 IV (20:33)
--- NOTE | 2020-04-23 20:55 | NURSING ---
This RN talked extensively w/pt regarding current medical status;reviewed code status and explained to pt that her kidneys and liver are not functioning as they should. Explained that hemodialysis is necessary to clean her blood of toxins that could severely damage her heart and other organs that could lead to . Pt expresses concern that she doesn't want to do it for the rest of her life. Explained to pt that the dialysis the doctors want to start with is temporary and she has the right to tell us to stop at any time. Pt able to restate all information as she understood it and restatement was accurate. Pt is in agreement to temporary dialysis catheter placement and beginning hemodialysis tomorrow after talking with doctors in morning.
[2020-04-23 22:01] LABS: Bedside Glucose 101 mg/dL (70-110)
--- NOTE | 2020-04-23 23:33 | NURSING ---
Hernandez catheter bag replaced in order to a urometer for most accurate hourly urine output documentation.
[2020-04-24] VITALS (49 sets, daily range): BP systolic 78–143; BP diastolic 35–99; PULSE 111–147; RESP 16–25; TEMP 36.2–36.7; O2SAT 90–100
[2020-04-24 04:14] LABS: Prothrombin Time (Protime)PT. 37.3 SECONDS (11.7-14.9)
[2020-04-24 04:15] LABS: International Normalized Ratio 3.8
[2020-04-24 04:21] LABS: Albumin, Serum 2.5 g/dL (3.2-5.0); BUN 87 mg/dL (7-18); BUN/Creat Ratio 27.8 RATIO (10-20); Calcium,Total 7.2 mg/dL (8.5-10.1); Chloride 104 mmol/L (98-107); Creatinine, Serum 3.13 mg/dL (0.55-1.02); EST Glomerular Filtration Rate 15 mL/min (>60); Est Glom Filt Rate - Afr Amer 18 mL/min (>60); Estimated Creatinine Clearance 10.96 ml/min; Glucose 102 mg/dL (74-106); Phosphorus 5.8 mg/dL (2.5-4.9); Potassium 5.4 mmol/L (3.5-5.1); Sodium Level 133 mmol/L (136-145)
[2020-04-24] MEDS: 0.9% Saline Lock 10 ML Syringe IV ×3 (06:50→20:26)
[2020-04-24] MEDS: Amiodarone 200 MG Tablet PO (06:51)
[2020-04-24] MEDS: Bumetanide 1 MG/4 ML Vial IV (06:51)
[2020-04-24] MEDS: TITRATION PARAMETER CHANGE 1 EACH IV (06:51)
[2020-04-24 06:58] LABS: ALB/GLOB Ratio 1.1 RATIO (0.9-2.4); AST(SGOT) 2819 U/L (15-37); Alanine Aminotransfer ALT/SGPT 2281 U/L (13-56); Alkaline Phosphatase 211 U/L (45-117); Bilirubin, Direct 1.05 mg/dL (0.00-0.30); Globulin 2.4 g/dL (2.2-4.2)
--- NOTE | 2020-04-24 07:27 | PN_ITS ---
Subjective: Patient with no significant improvement over the last 24 hours despite Lasix drip. Patient has remained tachycardic and urine output is marginal. Patient's blood pressures have not qualified for pressor therapy. There is some concern overnight of possible aspiration as patient is recurrently hoarse following p.o. intake. Patient's oxygen demands have not been significant. Discussed with patient about goals of therapy. Patient states that she wishes to be a full code and believes that she may be open to dialysis if necessary. General: Alert, Cooperative, Confused, - - Mild respiratory distress with conversational dyspnea. HEENT: Atraumatic, PERRLA, EOMI, Normocephalic, - - No scleral icterus or injection Oral: Moist Mucosa, No Gingival or Mucosal Lesions/ Ulcerations Neck: Supple, No Nodes, Trachea Midline, JVD, Right Lungs: No wheeze, Diminished, Rhonchi - Bilateral, - - Symmetric expansion Cardiovascular: Normal S1, Normal S2, No murmurs, Irregular Rate, No rub noted, No Gallop, Tachycardic Abdomen: Bowel Sounds Present, Soft, Non Tender, Distended - Slightly, Obese Extremities: No clubbing, No cyanosis, Edema - 4+ anasarca with weeping of the lower extremities Skin: - - Dermal atrophy. Weeping of the lower extremities. Musculoskeletal: No Tenderness to Palpation of Joints or Extremities Lymphatic: No Cervical, Supraclavicular, or Inguinal Adenopathy Neurological: Cranial nerves II-XII grossly intact, Neuro grossly intact, Motor Exam 5/5 strength throughout Psych/Mental Status: Flat Affect, Restless Vital Signs Temp Pulse Resp BP Pulse Ox 36.4 C L 133 H 21 H 84/47 L 100 04/24/20 04:00 04/24/20 06:52 04/24/20 06:00 04/24/20 06:52 04/24/20 06:00 Oxygen Flow Rate (L/min) 2 Oxygen Delivery Method Nasal Cannula Weight: 90.8 kg Body Mass Index (BMI) 31.7 Finger Stick Blood Glucose 394 Intake and Output for Last 24 Hours 04/22/20 04/23/20 04/24/20 23:59 23:59 23:59 Intake Total 1870.62 / 2020.62 1356.03 / 1356.03 31.57 / 31.57 Output Total 110 / 110 15 / 15 Balance 1850.62 / 1999.62 1246.03 / 1246.03 16.57 / 16.57 Labs (Last 48 Hours) 04/22/20 04/22/20 04/22/20 08:30 13:49 13:50 WBC RBC Hgb Hct MCV MCH MCHC RDW Std Deviation RDW Coeff of Blanca Plt Count MPV Immature Gran % (Auto) Neut % (Auto) Lymph % (Auto) [place] % (Auto) Eos % (Auto) Baso % (Auto) Absolute Neuts (auto) Absolute Lymphs (auto) Nucleated RBC % Differential Comment Acanthocytes (Spur) PT INR APTT Sodium Potassium Chloride Carbon Dioxide Anion Gap BUN Creatinine Estim Creat Clear Calc Est GFR (MDRD) Af Amer Est GFR (MDRD) Non-Af BUN/Creatinine Ratio Glucose Calcium Phosphorus Total Bilirubin Direct Bilirubin AST ALT Alkaline Phosphatase Total Protein Albumin Globulin Albumin/Globulin Ratio Vancomycin Trough 19.9 H Hepatitis A IgM Ab Negative Hep Bs Antigen Negative Hep B Core IgM Ab Negative Hepatitis C Ab (EIA) <0.1 POC Glucose 98 Blood Type 04/22/20 04/22/20 04/22/20 17:10 22:19 23:34 WBC RBC Hgb Hct MCV MCH MCHC RDW Std Deviation RDW Coeff of Blanca Plt Count MPV Immature Gran % (Auto) Neut % (Auto) Lymph % (Auto) [place] % (Auto) Eos % (Auto) Baso % (Auto) Absolute Neuts (auto) Absolute Lymphs (auto) Nucleated RBC % Differential Comment Acanthocytes (Spur) PT INR APTT Sodium Potassium Chloride Carbon Dioxide Anion Gap BUN Creatinine Estim Creat Clear Calc Est GFR (MDRD) Af Amer Est GFR (MDRD) Non-Af BUN/Creatinine Ratio Glucose Calcium Phosphorus Total Bilirubin Direct Bilirubin AST ALT Alkaline Phosphatase Total Protein Albumin Globulin Albumin/Globulin Ratio Vancomycin Trough Hepatitis A IgM Ab Hep Bs Antigen Hep B Core IgM Ab Hepatitis C Ab (EIA) POC Glucose 74 64 L 99 Blood Type 04/23/20 04/23/20 04/23/20 01:58 02:46 06:05 WBC 13.5 H RBC 4.34 Hgb 11.8 L Hct 38.3 MCV 88.2 MCH 27.2 MCHC 30.8 L RDW Std Deviation 60.6 H RDW Coeff of Blanca 19.7 H Plt Count 141 L MPV 10.4 Immature Gran % (Auto) 4.700 H Neut % (Auto) 88.4 H Lymph % (Auto) 3.1 L [place] % (Auto) 3.5 Eos % (Auto) 0.0 Baso % (Auto) 0.3 Absolute Neuts (auto) 12.0 H Absolute Lymphs (auto) 0.42 L Nucleated RBC % 1.9 Differential Comment SCANNED Acanthocytes (Spur) 1+ PT INR APTT Sodium Potassium Chloride Carbon Dioxide Anion Gap BUN Creatinine Estim Creat Clear Calc Est GFR (MDRD) Af Amer Est GFR (MDRD) Non-Af BUN/Creatinine Ratio Glucose Calcium Phosphorus Total Bilirubin Direct Bilirubin AST ALT Alkaline Phosphatase Total Protein Albumin Globulin Albumin/Globulin Ratio Vancomycin Trough Hepatitis A IgM Ab Hep Bs Antigen Hep B Core IgM Ab Hepatitis C Ab (EIA) POC Glucose 69 L 89 Blood Type 04/23/20 04/23/20 04/23/20 06:05 06:05 06:16 WBC RBC Hgb Hct MCV MCH MCHC RDW Std Deviation RDW Coeff of Blanca Plt Count MPV Immature Gran % (Auto) Neut % (Auto) Lymph % (Auto) [place] % (Auto) Eos % (Auto) Baso % (Auto) Absolute Neuts (auto) Absolute Lymphs (auto) Nucleated RBC % Differential Comment Acanthocytes (Spur) PT 48.0 H INR 5.2 H* APTT Sodium 134 L Potassium 5.5 H Chloride 104 Carbon Dioxide 20.0 L Anion Gap 10 BUN 78 H Creatinine 2.68 H Estim Creat Clear Calc 12.80 Est GFR (MDRD) Af Amer 22 L Est GFR (MDRD) Non-Af 18 L BUN/Creatinine Ratio 29.1 H Glucose 72 L Calcium 7.4 L Phosphorus Total Bilirubin 1.40 H Direct Bilirubin 1.12 H AST 6920 H ALT 3519 H Alkaline Phosphatase 229 H Total Protein 5.3 L Albumin 2.7 L Globulin 2.6 Albumin/Globulin Ratio Vancomycin Trough Hepatitis A IgM Ab Hep Bs Antigen Hep B Core IgM Ab Hepatitis C Ab (EIA) POC Glucose 53 L Blood Type 04/23/20 04/23/20 04/23/20 06:49 07:24 10:55 WBC 14.7 H RBC 4.26 Hgb 11.9 L Hct 38.1 MCV 89.4 MCH 27.9 MCHC 31.2 L RDW Std Deviation 61.1 H RDW Coeff of Blanca 19.9 H Plt Count 131 L MPV 10.4 Immature Gran % (Auto) 5.000 H Neut % (Auto) 87.1 H Lymph % (Auto) 2.5 L [place] % (Auto) 4.1 Eos % (Auto) 0.7 Baso % (Auto) 0.6 Absolute Neuts (auto) 12.8 H Absolute Lymphs (auto) 0.37 L Nucleated RBC % 2.0 Differential Comment Acanthocytes (Spur) PT INR APTT Sodium Potassium Chloride Carbon Dioxide Anion Gap BUN Creatinine Estim Creat Clear Calc Est GFR (MDRD) Af Amer Est GFR (MDRD) Non-Af BUN/Creatinine Ratio Glucose Calcium Phosphorus Total Bilirubin Direct Bilirubin AST ALT Alkaline Phosphatase Total Protein Albumin Globulin Albumin/Globulin Ratio Vancomycin Trough Hepatitis A IgM Ab Hep Bs Antigen Hep B Core IgM Ab Hepatitis C Ab (EIA) POC Glucose 65 L 82 Blood Type 04/23/20 04/23/20 04/23/20 10:55 11:49 12:45 WBC RBC Hgb Hct MCV MCH MCHC RDW Std Deviation RDW Coeff of Blanca Plt Count MPV Immature Gran % (Auto) Neut % (Auto) Lymph % (Auto) [place] % (Auto) Eos % (Auto) Baso % (Auto) Absolute Neuts (auto) Absolute Lymphs (auto) Nucleated RBC % Differential Comment Acanthocytes (Spur) PT 51.3 H INR 5.7 H* APTT 43.3 H Sodium Potassium Chloride Carbon Dioxide Anion Gap BUN Creatinine Estim Creat Clear Calc Est GFR (MDRD) Af Amer Est GFR (MDRD) Non-Af BUN/Creatinine Ratio Glucose Calcium Phosphorus Total Bilirubin Direct Bilirubin AST ALT Alkaline Phosphatase Total Protein Albumin Globulin Albumin/Globulin Ratio Vancomycin Trough Hepatitis A IgM Ab Hep Bs Antigen Hep B Core IgM Ab Hepatitis C Ab (EIA) POC Glucose 86 Blood Type O POSITIVE 04/23/20 04/23/20 04/24/20 16:40 21:57 04:00 WBC Pending RBC Pending Hgb Pending Hct Pending MCV Pending MCH Pending MCHC Pending RDW Std Deviation Pending RDW Coeff of Blanca Pending Plt Count Pending MPV Immature Gran % (Auto) Neut % (Auto) Pending Lymph % (Auto) [place] % (Auto) Eos % (Auto) Baso % (Auto) Absolute Neuts (auto) Pending Absolute Lymphs (auto) Nucleated RBC % Differential Comment Acanthocytes (Spur) PT INR APTT Sodium Potassium Chloride Carbon Dioxide Anion Gap BUN Creatinine Estim Creat Clear Calc Est GFR (MDRD) Af Amer Est GFR (MDRD) Non-Af BUN/Creatinine Ratio Glucose Calcium Phosphorus Total Bilirubin Direct Bilirubin AST ALT Alkaline Phosphatase Total Protein Albumin Globulin Albumin/Globulin Ratio Vancomycin Trough Hepatitis A IgM Ab Hep Bs Antigen Hep B Core IgM Ab Hepatitis C Ab (EIA) POC Glucose 107 101 Blood Type 04/24/20 04/24/20 04/24/20 04:00 04:00 04:00 WBC RBC Hgb Hct MCV MCH MCHC RDW Std Deviation RDW Coeff of Blanca Plt Count MPV Immature Gran % (Auto) Neut % (Auto) Lymph % (Auto) [place] % (Auto) Eos % (Auto) Baso % (Auto) Absolute Neuts (auto) Absolute Lymphs (auto) Nucleated RBC % Differential Comment Acanthocytes (Spur) PT 37.3 H INR 3.8 H* APTT Sodium 133 L Potassium 5.4 H Chloride 104 Carbon Dioxide 19.0 L Anion Gap BUN 87 H Creatinine 3.13 H Estim Creat Clear Calc 10.96 Est GFR (MDRD) Af Amer 18 L Est GFR (MDRD) Non-Af 15 L BUN/Creatinine Ratio 27.8 H Glucose 102 Calcium 7.2 L Phosphorus 5.8 H Total Bilirubin Cancelled Direct Bilirubin Cancelled AST Cancelled ALT Cancelled Alkaline Phosphatase Cancelled Total Protein Cancelled Albumin 2.5 L Cancelled Globulin Cancelled Albumin/Globulin Ratio Vancomycin Trough Hepatitis A IgM Ab Hep Bs Antigen Hep B Core IgM Ab Hepatitis C Ab (EIA) POC Glucose Blood Type 04/24/20 04:00 WBC RBC Hgb Hct MCV MCH MCHC RDW Std Deviation RDW Coeff of Blanca Plt Count MPV Immature Gran % (Auto) Neut % (Auto) Lymph % (Auto) [place] % (Auto) Eos % (Auto) Baso % (Auto) Absolute Neuts (auto) Absolute Lymphs (auto) Nucleated RBC % Differential Comment Acanthocytes (Spur) PT INR APTT Sodium Potassium Chloride Carbon Dioxide Anion Gap BUN Creatinine Estim Creat Clear Calc Est GFR (MDRD) Af Amer Est GFR (MDRD) Non-Af BUN/Creatinine Ratio Glucose Calcium Phosphorus Total Bilirubin 1.50 H Direct Bilirubin 1.05 H AST 2819 H ALT 2281 H Alkaline Phosphatase 211 H Total Protein 5.0 L Albumin Globulin 2.4 Albumin/Globulin Ratio 1.1 Vancomycin Trough Hepatitis A IgM Ab Hep Bs Antigen Hep B Core IgM Ab Hepatitis C Ab (EIA) POC Glucose Blood Type Microbiology 04/20/20 12:30 Wound - Left Foot Gram Stain - Final 04/20/20 12:30 Wound - Left Foot Wound Culture - Final Staphylococcus aureus Staphylococcus epidermidis Enterococcus faecalis Enterobacter cloacae complex 04/20/20 12:30 Wound - Left Foot Anaerobic Culture - Final No anaerobic bacteria isolated. Medical Necessity - Tobacco Use Smoking Status: Never smoker Assessment/Plan All Active Problems (Last Reviewed 01/09/20 @ 11:16 by Sandy Hopson PA, PA) Diabetic infection of left foot (Acute) Paroxysmal atrial fibrillation with RVR (Acute) Lactic acidosis (Acute) Severe sepsis (Acute) Elevated serum creatinine (Acute) Hypotension (Acute) ULISSES (acute kidney injury) (Acute) Bronchitis (Acute) Ulcer of right lower extremity with fat layer exposed (Resolved) Ulcer of left lower extremity with fat layer exposed (Resolved) Chronic ulcer of left foot with fat layer exposed (Resolved) Chronic ulcer of right great toe with fat layer exposed (Resolved) Ulcer of left lower extremity with fat layer exposed (Resolved) Ulcer of right lower extremity with fat layer exposed (Resolved) Venous ulcers of both lower extremities (Resolved) Hyponatremia (Resolved) RECOMMENDATIONS: 1. Reinitiate amiodarone p.o. 2. Continue current antibiotics 3. Await patient decision on hemodialysis. Appreciate nephrology input 4. Likely discontinue Lasix drip once current bag is complete. Attempt Bumex 5. Initiate low-dose pressors with a map goal of 70 6. Transfuse FFP with attempt to normalize INR IMPRESSIONS: 1. Severe sepsis secondary to diabetic foot ulcer with Charcot foot Patient reportedly has poor hygiene habits at baseline, likely leading to infection. Patient with Charcot foot and elevated CRP was significant concern for osteomyelitis. Patient currently being treated with vancomycin and Zosyn, but wound culture is showing multiple organisms. We will transition to cefepime therapy. Podiatry has been consulted and completed debridement with plans to address Charcot joint as an outpatient. Patient does have pulmonary hypertension, likely type II, at baseline so we will try to limit volume resuscitation. Initiate pressors if patient becomes hypotensive to help with renal perfusion 2. A. fib with RVR/chronic diastolic CHF Patient appears to have responded well to amiodarone bolus and drip from a rate perspective in the past. This was discontinued secondary to concerns for hepatitis. Appreciate cardiology for long-term recommendations and optimization, especially given the need for possible surgery in the near future. Attempting to increase blood pressure goals to help with renal function. However, given tachycardia, will use Paras-Synephrine instead of Levophed. 3. Diabetes mellitus type 2 leading to peripheral vascular disease, Charcot foot and diabetic foot ulcer Hold oral hypoglycemics given possibility of surgery and variable p.o. intake. Monitor with sliding scale insulin. Patient may need to be transitioned to insulin therapy for better control, but defer to endocrine as an outpatient. 4. Social concerns/pulmonary hypertension/hypertension/hyperlipidemia/advanced age/obesity Complicates care, management, recovery and prognosis. Case management to evaluate patient's living situation. Blood pressure medications have been held secondary to acute condition. Obesity does complicate recovery from Charcot joint. 5. Acute hepatitis Exact etiology is unclear at this time. Some concern for hepatorenal syndrome. Liver function studies continue to improve. Patient's INR is improved, but this is likely secondary to FFP and vitamin K more than improvement in hepatic function. Acute hepatitis work-up is negative. 6. Acute kidney injury Clinical concern for hepatorenal syndrome. Patient has not responded to a Lasix drip challenge for 24 hours. Will likely discontinue today. Await recommendations from nephrology. Will attempt to increase map to help with renal perfusion using Paras-Synephrine. TIME: 37 minutes of critical care time spent addressing patient's severe sepsis, A. fib with RVR, hepatitis, anasarca with renal failure, review of all data in collaboration with care team (6:30 AM to 7:30 AM) [id number]: [id number] Critical care first hour
[2020-04-24 08:11] LABS: Absolute Lymphocyte Count 0.33 X10^3/uL (0.83-4.51); Absolute Neutrophil Count 8.1 X10^3/uL (2.0-7.7); Basophil# 0.03 X10^3/uL; Basophil% 0.3 % (0-1); Eosinophil# 0.15 X10^3/uL; Eosinophils% 1.6 % (0-5); Hematocrit 32.9 % (37-47); Hemoglobin 10.1 g/dL (12.0-15.0); Lymphocyte # 0.33 X10^3/ul (4.0); Lymphocyte % 3.6 % (19-41); Mean Corp Hgb Conc 30.7 g/dL (32-36); Mean Corpuscular Hgb 27.2 pg (27.0-32.0); Mean Corpuscular Volume 88.4 fL (81-99); Mean Platelet Vol. 10.3 fl (6.2-12.0); Monocyte# 0.22 X10^3/uL; Monocyte% 2.4 % (0-10); NRBC Flagged by Analyzer 1.9 % (0-5); Neutrophil # 8.08 X10^3/uL (2.7-7.7); Neutrophil % 87.4 % (47-70); POSITIVE DIFFERENTIAL YES; Platelet Count 102 K/mm3 (150-450); RBC Distribution Width CV 19.4 % (11.6-14.6); RBC Distribution Width SD 61.4 fl (35.1-43.9); Red Blood Count 3.72 M/mm3 (4.2-5.4); White Blood Count 9.2 K/mm3 (4.4-11.0)
[2020-04-24 08:12] LABS: Differential Indicated SCAN CRITERIA MET
[2020-04-24 08:26] LABS: Acanthocytes 2+; Hypochromasia 1+; Platelet Estimate MOD DEC (ADEQ); Polychromasia RARE
[2020-04-24] MEDS: Acetaminophen 325 MG Tablet 650 MG PO (11:03)
[2020-04-24] MEDS: Nystatin Powder 15gm Bottle 1 APPLIC TOPICAL ×2 (11:03→22:53)
[2020-04-24] MEDS: Menthol/Lanolin/Calamine/Znox 113 GM Tube 1 APPLIC TOPICAL ×2 (11:03→22:52)
--- NOTE | 2020-04-24 11:19 | CM.ED ---
Participated in interdisciplinary rounds this am. Patient remains a full code. She is considering dialysis. She remains on 2 liters o2. Low urine output. Speech evaluated and switched patient to a puree diet. Disposition TBD. Patient has chose [facility], is appropriate for SNF. Abelino Jose RN, CCM.
[2020-04-24 11:20] LABS: Bedside Glucose 79 mg/dL (70-110)
[2020-04-24] MEDS: Phenylephrine 40 mg/250 mL 0.9% NS 33.8 MG CONT INF (11:52)
--- NOTE | 2020-04-24 11:55 | PCM.PN.HOSP ---
Patient Problems: Active and Suspected Problems (Last Reviewed 01/09/20 @ 11:16 by Sandy Hopson PA, PA) Diabetic infection of left foot (Acute) Paroxysmal atrial fibrillation with RVR (Acute) Lactic acidosis (Acute) Severe sepsis (Acute) Elevated serum creatinine (Acute) Hypotension (Acute) ULISSES (acute kidney injury) (Acute) Subjective: Patient seen and examined. Patient is very weak. She complains of her feet feeling cold. She denies fever, chills, shortness of breath, nausea vomiting. She does have a cough which she is not able to expectorate. Review of systems otherwise negative. She remains tachypneic and tachycardic. Blood pressure and temperature are within normal limits. Potassium is 5.4 today. Creatinine is trended up to 3.13 today. Bilirubin has also trended up to 1.5 but AST and ALT have trended down to 2899 and 2281 respectively. Vitals/I&O's: Vital Signs Temp Pulse Resp BP Pulse Ox 97.8 F 137 H 25 H 111/98 H 95 04/24/20 11:45 04/24/20 11:45 04/24/20 11:45 04/24/20 11:45 04/24/20 11:45 Oxygen Flow Rate (L/min) 3 Oxygen Delivery Method Nasal Cannula Weight: 200 lb 2.876 oz Body Mass Index (BMI) 31.7 Finger Stick Blood Glucose 394 Intake and Output for Last 24 Hours 04/22/20 04/23/20 04/24/20 23:59 23:59 23:59 Intake Total 187.62 / 2019.62 1356.03 / 1356.03 191.34 / 191.34 Output Total 110 / 110 Balance 1850.62 / 1999.62 1246.03 / 1246.03 166.34 / 166.34 General: Alert, Oriented x3, Cooperative, Lethargic HEENT: Atraumatic, PERRLA, EOMI, Normocephalic Oral: Moist Mucosa Neck: Supple, No JVD, Negative Carotid Bruits Lungs: - - Decreased breath sounds bibasilarly. Coarse crackles in all lung rodarte bilaterally. On 3 L of oxygen. Cardiovascular: Normal S1, Normal S2, No murmurs, Tachycardic Abdomen: Bowel Sounds Present, Soft, Non Tender, Non-Distended, No Hepato-splenomegaly Extremities: No clubbing, No cyanosis, - - Extremities have diminished peripheral pulses and a very cool to touch with mild 1+ bilateral pedal edema. Skin: No rashes, No breakdown Musculoskeletal: No Tenderness to Palpation of Joints or Extremities Neurological: Cranial nerves II-XII grossly intact, Neuro grossly intact, Motor Exam 5/5 strength throughout Psych/Mental Status: Normal Affect, Appropriate, Alert and oriented to time, place, person, mood and affect Microbiology Past 72 Hours 04/19/20 11:20 Blood Culture (Wb) - Anticubital Right Blood Culture - Final No growth in 5 days. 04/20/20 12:30 Wound - Left Foot Gram Stain - Final 04/20/20 12:30 Wound - Left Foot Wound Culture - Final Staphylococcus aureus Staphylococcus epidermidis Enterococcus faecalis Enterobacter cloacae complex 04/20/20 12:30 Wound - Left Foot Anaerobic Culture - Final No anaerobic bacteria isolated. 04/19/20 11:43 Blood Culture (Wb) - Left Hand Blood Culture - Preliminary No growth in 48 hours. Laboratory Results 04/22/20 08:30: Hepatitis A IgM Ab Negative, Hep Bs Antigen Negative, Hep B Core IgM Ab Negative, Hepatitis C Ab (EIA) <0.1 04/23/20 11:49: POC Glucose 86 04/23/20 12:45: Blood Type O POSITIVE 04/23/20 16:40: POC Glucose 107 04/23/20 21:57: POC Glucose 101 04/24/20 04:00: WBC 9.2, RBC 3.72 L, Hgb 10.1 L, Hct 32.9 L, MCV 88.4, MCH 27.2, MCHC 30.7 L, RDW Std Deviation 61.4 H, RDW Coeff of Blanca 19.4 H, Plt Count 102 L, MPV 10.3, Immature Gran % (Auto) 4.700 H, Neut % (Auto) 87.4 H, Lymph % (Auto) 3.6 L, [place] % (Auto) 2.4, Eos % (Auto) 1.6, Baso % (Auto) 0.3, Absolute Neuts (auto) 8.1 H, Absolute Lymphs (auto) 0.33 L, Nucleated RBC % 1.9, Platelet Estimate MOD DEC, Polychromasia RARE, Hypochromasia 1+, Acanthocytes (Spur) 2+ 04/24/20 04:00: PT 37.3 H, INR 3.8 H* 04/24/20 04:00: Sodium 133 L, Potassium 5.4 H, Chloride 104, Carbon Dioxide 19.0 L, BUN 87 H, Creatinine 3.13 H, Estim Creat Clear Calc 10.96, Est GFR (MDRD) Af Amer 18 L, Est GFR (MDRD) Non-Af 15 L, BUN/Creatinine Ratio 27.8 H, Glucose 102, Calcium 7.2 L, Phosphorus 5.8 H, Albumin 2.5 L 04/24/20 04:00: Total Bilirubin Cancelled, Direct Bilirubin Cancelled, AST Cancelled, ALT Cancelled, Alkaline Phosphatase Cancelled, Total Protein Cancelled, Albumin Cancelled, Globulin Cancelled 04/24/20 04:00: Total Bilirubin 1.50 H, Direct Bilirubin 1.05 H, AST 2819 H, ALT 2281 H, Alkaline Phosphatase 211 H, Total Protein 5.0 L, Globulin 2.4, Albumin/Globulin Ratio 1.1 04/24/20 11:12: POC Glucose 79 Diagnostic Data Foot X-Ray 04/19/20 09:46 IMPRESSION: Diffuse soft tissue swelling as well as osteopenia. Electronically Signed: Nestor Noonan, at 11:04 EDT , Service support , Lower Extremity MRI 04/20/20 12:38 IMPRESSION: 1. Mild to moderate Charcot arthropathy/osteoarthritis. No evidence of osteomyelitis or a soft tissue abscess. Electronically Signed: Pato Clarke MD at 19:23 EDT , Service support , Liver Ultrasound 04/22/20 08:24 IMPRESSION: Small amount of perihepatic fluid. Diffuse gallbladder wall thickening without pericholecystic fluid. Electronically Signed: Nestor Noonan, at 12:42 EDT , Service support , Chest X-Ray 04/22/20 13:45 IMPRESSION: The tip of the left PICC line catheter is at the junction of the superior vena cava and right atrium. Since prior study, has been improved aeration of both lungs. Electronically Signed: Nestor Ngokathydanilo, at 14:07 EDT , Service support , Current Medications Acetaminophen (Tylenol) 650 mg PO Q6H PRN PRN PRN Reason: Pain Score 1-10/Temp > 100.7 F Last Admin: 04/24/20 11:03 Dose: 650 mg Documented by: Amiodarone HCl (Cordarone) 200 mg PO DAILYCM [facility] Last Admin: 04/24/20 06:51 Dose: 200 mg Documented by: Calamine/Phenol (Calmoseptine Ointment) 1 applic TOPICAL BID [facility]; Protocol Last Admin: 04/24/20 11:03 Dose: 1 applicatio Documented by: Dextrose (D50w Syringe) 0 gm IV X1 PRN; Protocol PRN Reason: Hypoglycemia Glucagon () 1 mg IM .X1 PRN PRN Reason: Hypoglycemia Sodium Chloride () 250 mls @ 15 mls/hr IV .[id number] PRN PRN Reason: Saline Flush Last Infusion: 04/23/20 21:11 Dose: 0 mls/hr Documented by: Sodium Chloride () 250 mls @ 15 mls/hr IV .[id number] PRN PRN Reason: Additional IVPB Infusion Norepinephrine Bitartrate 8 mg (/ Sodium Chloride) 250 mls @ 9.375 mls/hr CONT INF .[id number] [facility]; Protocol Last Admin: 04/23/20 20:34 Dose: Not Given Documented by: Piperacillin Sod/Tazobactam (Sod 3.375 gm/ Sodium Chloride) 50 mls @ 12.5 mls/hr IV Q12 [facility] Stop: 04/26/20 22:01 Last Admin: 04/24/20 11:02 Dose: 12.5 mls/hr Documented by: Phenylephrine HCl 40 mg/ (Sodium Chloride) 250 mls @ 3.75 mls/hr CONT INF .[id number] [facility]; Protocol Last Admin: 04/24/20 11:52 Dose: 90 mcg/min, 33.8 mls/hr Documented by: Insulin Human Lispro (Humalog Kwikpen (Bkc)) 0 unit SC ACHS [facility]; Protocol Last Admin: 04/24/20 11:13 Dose: Not Given Documented by: Menthol (Bengay Vanishing Scent) 1 applic TOPICAL 4X/DAY PRN PRN PRN Reason: knee pain Last Admin: 04/23/20 06:07 Dose: 1 applic Documented by: Nutritional Formula (Lactose Free) (Glucerna Shake) 120 ml PO 4X/DAY [facility] Last Admin: 04/24/20 07:44 Dose: Not Given Documented by: Nystatin (Mycostatin Powder) 1 applic TOPICAL BID [facility]; Protocol Last Admin: 04/24/20 11:03 Dose: 1 applicatio Documented by: Ondansetron HCl (Zofran) 4 mg IV Q8H PRN PRN PRN Reason: NAUSEA/VOMITING Senna/Docusate Sodium (Senokot-S, Jessie-Colace) 2 tablet PO BID [facility] Last Admin: 04/24/20 07:44 Dose: Not Given Documented by: Sodium Chloride () 10 - 40 ml IV UD PRN PRN Reason: SALINE FLUSH Last Admin: 04/24/20 11:14 Dose: 20 ml Documented by: STROKE Vital Signs/Narrative: Vital Signs Temp Pulse Resp BP Pulse Ox 04/24/20 11:45 97.8 F 137 H 25 H 111/98 H 95 04/24/20 11:30 98.1 F 133 H 22 H 114/57 L 97 04/24/20 11:00 135 H 17 78/52 L 97 04/24/20 10:00 122 H 20 H 85/66 L 99 Medical Necessity - Tobacco Use Smoking Status: Never smoker Assessment/Plan All Active Problems (Last Reviewed 01/09/20 @ 11:16 by Sandy GOLDMAN, PA) Diabetic infection of left foot (Acute) Paroxysmal atrial fibrillation with RVR (Acute) Lactic acidosis (Acute) Severe sepsis (Acute) Elevated serum creatinine (Acute) Hypotension (Acute) ULISSES (acute kidney injury) (Acute) Bronchitis (Acute) Ulcer of right lower extremity with fat layer exposed (Resolved) Ulcer of left lower extremity with fat layer exposed (Resolved) Chronic ulcer of left foot with fat layer exposed (Resolved) Chronic ulcer of right great toe with fat layer exposed (Resolved) Ulcer of left lower extremity with fat layer exposed (Resolved) Ulcer of right lower extremity with fat layer exposed (Resolved) Venous ulcers of both lower extremities (Resolved) Hyponatremia (Resolved) # Severe sepsis due to diabetic foot ulcer Still remains tachycardic and tachypneic. White cell count is trended down to 9.2. Wound culture grew Staphylococcus aureus and epidermidis as well as Enterococcus faecalis and Enterobacter [place]. MRI showed no osteomyelitis but arterial study showed very poor blood flow to her lower extremities. Podiatry on board-no plans for foot or ankle surgery. To proceed with bracing and, walker. #Acute liver failure Liver enzymes are now trending down. Bilirubin did trend up to 1.5 but AST is down to 2189 and ALT down to 2281. ALP is 2 1 water total bilirubin is 1.5. INR is still elevated. Liver failure thought to be due to right-sided ventricular failure. Ultrasound of the liver did show diffuse gallbladder wall thickening without pericholecystic fluid. Will continue to trend liver enzymes. Currently stable. Hepatitis panel was negative. #Elevated INR: INR today is 3.8. Received 2 units of FFP's yesterday. Receiving more FFP's today. #Paroxysmal A. fib: 2D echo done during this admission shows EF of 30% with severely dilated right ventricle and RVSP of 33 mmHg. Cardiology on board. #Hyperkalemia: Potassium is 5.4. Will give Kayexalate and trend potassium levels. #Chronic heart failure with reduced ejection fraction: Lisinopril on hold on account of renal dysfunction. Currently on Lasix drip. In cumulative positive balance by 13.56 L. urine output is very scant, due to ULISSES. will likely need dialysis to help with fluid removal. Nephrology on board cardiology also no board #Acute renal failure Creatinine is trended up to 3.1 today. Also anuric. Nephrology on board. Only on Lasix drip. Will likely need dialysis to help with fluid removal. I did guidance counselor patient about this today but she was never infused and wanted to talk to nephrology some more about it. #Acute hypoxic respiratory insufficiency: She is tachypneic and on 3 L of oxygen. #Type 2 diabetes mellitus with diabetic foot ulcer and Charcot foot On Lantus 10 units nightly. Insulin sliding scale. Accu-Cheks AC at bedtime. DVT prophylaxis: Not indicated as she has supratherapeutic INR. Prognosis: patient is severely ill. Inpatient E&M: 59048 Subs Hosp L3
[2020-04-24] MEDS: Sodium Polystyrene Sulfonate 15 GM/60 ML UDC 30 GM PO (13:58)
--- NOTE | 2020-04-24 15:46 | PN.RENAL_ITS ---
Patient Problems: Active and Suspected Problems (Last Reviewed 01/09/20 @ 11:16 by Sandy Hopson PA, PA) Diabetic infection of left foot (Acute) Paroxysmal atrial fibrillation with RVR (Acute) Lactic acidosis (Acute) Severe sepsis (Acute) Elevated serum creatinine (Acute) Hypotension (Acute) ULISSES (acute kidney injury) (Acute) Subjective: Patient is in mild SOB. Feels tired No nausea No vomiting No response to IV diuretics so far - Physical Exam Vitals/I&O's: Vital Signs Temp Pulse Resp BP Pulse Ox 97.1 F L 134 H 17 115/59 L 98 04/24/20 14:45 04/24/20 15:22 04/24/20 14:45 04/24/20 14:45 04/24/20 14:45 Oxygen Flow Rate (L/min) 3 Oxygen Delivery Method Nasal Cannula Weight: 90.8 kg Body Mass Index (BMI) 31.7 Finger Stick Blood Glucose 394 Intake and Output for Last 24 Hours 04/22/20 04/23/20 04/24/20 23:59 23:59 23:59 Intake Total 1870.62 / 2019.62 1356.03 / 1356.03 855.29 / 855.29 Output Total 110 / 110 35 / 35 Balance 1850.62 / 1999.62 1246.03 / 1246.03 820.29 / 820.29 General: Alert, - - look tired HEENT: Atraumatic Neck: Supple, No JVD Lungs: - - decrease BS over both lungs bases Cardiovascular: Normal S1, Normal S2, Tachycardic, - Abdomen: Bowel Sounds Present, Soft, Non Tender, Non-Distended Extremities: No clubbing, No cyanosis, Edema - +2 edema of LE Lymphatic: No Cervical, Supraclavicular, or Inguinal Adenopathy Neurological: Cranial nerves II-XII grossly intact, Neuro grossly intact Psych/Mental Status: Anxious Microbiology Past 72 Hours 04/19/20 11:43 Blood Culture (Wb) - Left Hand Blood Culture - Final No growth in 5 days. 04/19/20 11:20 Blood Culture (Wb) - Anticubital Right Blood Culture - Final No growth in 5 days. 04/20/20 12:30 Wound - Left Foot Gram Stain - Final 04/20/20 12:30 Wound - Left Foot Wound Culture - Final Staphylococcus aureus Staphylococcus epidermidis Enterococcus faecalis Enterobacter cloacae complex 04/20/20 12:30 Wound - Left Foot Anaerobic Culture - Final No anaerobic bacteria isolated. Laboratory Results 04/23/20 16:40: POC Glucose 107 04/23/20 21:57: POC Glucose 101 04/24/20 04:00: WBC 9.2, RBC 3.72 L, Hgb 10.1 L, Hct 32.9 L, MCV 88.4, MCH 27.2, MCHC 30.7 L, RDW Std Deviation 61.4 H, RDW Coeff of Blanca 19.4 H, Plt Count 102 L, MPV 10.3, Immature Gran % (Auto) 4.700 H, Neut % (Auto) 87.4 H, Lymph % (Auto) 3.6 L, [place] % (Auto) 2.4, Eos % (Auto) 1.6, Baso % (Auto) 0.3, Absolute Neuts (auto) 8.1 H, Absolute Lymphs (auto) 0.33 L, Nucleated RBC % 1.9, Platelet Estimate MOD DEC, Polychromasia RARE, Hypochromasia 1+, Acanthocytes (Spur) 2+ 04/24/20 04:00: PT 37.3 H, INR 3.8 H* 04/24/20 04:00: Sodium 133 L, Potassium 5.4 H, Chloride 104, Carbon Dioxide 19.0 L, BUN 87 H, Creatinine 3.13 H, Estim Creat Clear Calc 10.96, Est GFR (MDRD) Af Amer 18 L, Est GFR (MDRD) Non-Af 15 L, BUN/Creatinine Ratio 27.8 H, Glucose 102, Calcium 7.2 L, Phosphorus 5.8 H, Albumin 2.5 L 04/24/20 04:00: Total Bilirubin Cancelled, Direct Bilirubin Cancelled, AST Cancelled, ALT Cancelled, Alkaline Phosphatase Cancelled, Total Protein Cancelled, Albumin Cancelled, Globulin Cancelled 04/24/20 04:00: Total Bilirubin 1.50 H, Direct Bilirubin 1.05 H, AST 2819 H, ALT 2281 H, Alkaline Phosphatase 211 H, Total Protein 5.0 L, Globulin 2.4, Albumin/Globulin Ratio 1.1 04/24/20 11:12: POC Glucose 79 Current Medications Acetaminophen (Tylenol) 650 mg PO Q6H PRN PRN PRN Reason: Pain Score 1-10/Temp > 100.7 F Last Admin: 04/24/20 11:03 Dose: 650 mg Documented by: Amiodarone HCl (Cordarone) 200 mg PO DAILYCM [facility] Last Admin: 04/24/20 06:51 Dose: 200 mg Documented by: Calamine/Phenol (Calmoseptine Ointment) 1 applic TOPICAL BID [facility]; Protocol Last Admin: 04/24/20 11:03 Dose: 1 applicatio Documented by: Dextrose (D50w Syringe) 0 gm IV X1 PRN; Protocol PRN Reason: Hypoglycemia Glucagon () 1 mg IM .X1 PRN PRN Reason: Hypoglycemia Sodium Chloride () 250 mls @ 15 mls/hr IV .[id number] PRN PRN Reason: Saline Flush Last Infusion: 04/23/20 21:11 Dose: 0 mls/hr Documented by: Sodium Chloride () 250 mls @ 15 mls/hr IV .[id number] PRN PRN Reason: Additional IVPB Infusion Norepinephrine Bitartrate 8 mg (/ Sodium Chloride) 250 mls @ 9.375 mls/hr CONT INF .[id number] [facility]; Protocol Last Admin: 04/23/20 20:34 Dose: Not Given Documented by: Piperacillin Sod/Tazobactam (Sod 3.375 gm/ Sodium Chloride) 50 mls @ 12.5 mls/hr IV Q12 [facility] Stop: 04/26/20 22:01 Last Infusion: 04/24/20 15:18 Dose: Infused Documented by: Phenylephrine HCl 40 mg/ (Sodium Chloride) 250 mls @ 3.75 mls/hr CONT INF .[id number] [facility]; Protocol Last Titration: 04/24/20 13:00 Dose: 110 mcg/min, 41.3 mls/hr Documented by: Insulin Human Lispro (Humalog Kwikpen (Bkc)) 0 unit SC [facility]; Protocol Last Admin: 04/24/20 11:13 Dose: Not Given Documented by: Menthol (Bengay Vanishing Scent) 1 applic TOPICAL 4X/DAY PRN PRN PRN Reason: knee pain Last Admin: 04/23/20 06:07 Dose: 1 applic Documented by: Nutritional Formula (Lactose Free) (Glucerna Shake) 120 ml PO 4X/DAY [facility] Last Admin: 04/24/20 13:04 Dose: Not Given Documented by: Nystatin (Mycostatin Powder) 1 applic TOPICAL BID [facility]; Protocol Last Admin: 04/24/20 11:03 Dose: 1 applicatio Documented by: Ondansetron HCl (Zofran) 4 mg IV Q8H PRN PRN PRN Reason: NAUSEA/VOMITING Senna/Docusate Sodium (Senokot-S, Jessie-Colace) 2 tablet PO BID [facility] Last Admin: 04/24/20 07:44 Dose: Not Given Documented by: Sodium Chloride () 10 - 40 ml IV UD PRN PRN Reason: SALINE FLUSH Last Admin: 04/24/20 11:14 Dose: 20 ml Documented by: Medical Necessity - Tobacco Use Smoking Status: Never smoker Assessment/Plan All Active Problems (Last Reviewed 01/09/20 @ 11:16 by Sandy Hopson PA, PA) Diabetic infection of left foot (Acute) Paroxysmal atrial fibrillation with RVR (Acute) Lactic acidosis (Acute) Severe sepsis (Acute) Elevated serum creatinine (Acute) Hypotension (Acute) ULISSES (acute kidney injury) (Acute) Bronchitis (Acute) Ulcer of right lower extremity with fat layer exposed (Resolved) Ulcer of left lower extremity with fat layer exposed (Resolved) Chronic ulcer of left foot with fat layer exposed (Resolved) Chronic ulcer of right great toe with fat layer exposed (Resolved) Ulcer of left lower extremity with fat layer exposed (Resolved) Ulcer of right lower extremity with fat layer exposed (Resolved) Venous ulcers of both lower extremities (Resolved) Hyponatremia (Resolved) 1- ULISSES . likely HRS and possible ATN Patient has not been oliguric with poor response to IV diuretics BUN and Cr are increasing. Patient wants to pursue full care and code.She agreed with HD Will consult surgery for temp HD access placement. Will dialyse the patient tomorrow after HD acces placement. Not sure how much fluid will tolerate with soft BP Keep MAP > 65 2-Hyperkalemia: likely from ULISSES Mild. No urgent need for HD 3- metabolic acidosis. likely from ULISSES Should improve with HD 4- Septic shock from diabetic foot ulcer infection Abx and hemodynamic support as per ICU team Renal team will continue to follow Please call if ay question at [phone] Samara Tse MD
[2020-04-24] MEDS: Juven (unflavored) Packet 1 PACKET PO (16:21)
[2020-04-24 16:31] LABS: Bedside Glucose 90 mg/dL (70-110)
[2020-04-24] MEDS: Phenylephrine 40 mg/250 mL 0.9% NS 41.3 MG CONT INF ×2 (17:36→23:58)
[2020-04-24 23:01] LABS: Bedside Glucose 82 mg/dL (70-110)
[2020-04-25] VITALS (54 sets, daily range): BP systolic 62–118; BP diastolic 18–106; PULSE 121–167; RESP 16–29; TEMP 36.6–37.1; O2SAT 91–100
[2020-04-25 04:46] LABS: Hematocrit 33.8 % (37-47); Hemoglobin 10.5 g/dL (12.0-15.0); Mean Corp Hgb Conc 31.1 g/dL (32-36); Mean Corpuscular Hgb 27.6 pg (27.0-32.0); Mean Corpuscular Volume 88.7 fL (81-99); Mean Platelet Vol. 10.3 fl (6.2-12.0); POSITIVE COUNT YES; POSITIVE DIFFERENTIAL YES; POSITIVE MORPHOLOGY YES; Platelet Count 79 K/mm3 (150-450); RBC Distribution Width CV 20.3 % (11.6-14.6); RBC Distribution Width SD 63.4 fl (35.1-43.9); Red Blood Count 3.81 M/mm3 (4.2-5.4)
[2020-04-25 04:51] LABS: Differential Indicated MANUAL DIFF
[2020-04-25 04:53] LABS: International Normalized Ratio 2.7
[2020-04-25 04:54] LABS: Partial Thromboplast Time 34.6 Seconds (24.1-36.2)
[2020-04-25 05:06] LABS: Monocyte 4 % (0-10); Total Cells Counted 100 (MANUAL DIFF)
[2020-04-25 05:08] LABS: AST(SGOT) 1394 U/L (15-37); Alanine Aminotransfer ALT/SGPT 1680 U/L (13-56); Albumin, Serum 2.8 g/dL (3.2-5.0); Alkaline Phosphatase 222 U/L (45-117); Anion Gap 11 (5-15); BUN 92 mg/dL (7-18); BUN/Creat Ratio 27.5 RATIO (10-20); Calcium,Total 7.2 mg/dL (8.5-10.1); Chloride 106 mmol/L (98-107); Creatinine, Serum 3.35 mg/dL (0.55-1.02); EST Glomerular Filtration Rate 14 mL/min (>60); Est Glom Filt Rate - Afr Amer 17 mL/min (>60); Estimated Creatinine Clearance 10.24 ml/min; Globulin 2.9 g/dL (2.2-4.2); Glucose 93 mg/dL (74-106); Potassium 5.5 mmol/L (3.5-5.1); Protein, Total 5.7 g/dL (6.4-8.2); Sodium Level 136 mmol/L (136-145)
[2020-04-25 05:09] LABS: Burr Cells 1+; Hypochromasia 1+; Platelet Estimate MOD DEC (ADEQ)
[2020-04-25] MEDS: Phenylephrine 40 mg/250 mL 0.9% NS 41.3 MG CONT INF (06:05)
[2020-04-25 06:50] LABS: Bedside Glucose 96 mg/dL (70-110)
--- NOTE | 2020-04-25 07:05 | PCM.PN.INT ---
Subjective: Patient did okay overnight. Patient continues to have a productive cough, but pressor requirements have been stable. Patient remains tachycardic. Patient denies any specific pains. Patient reports poor sleep overnight. General: Alert, Cooperative, No apparent distress, - - Conversational dyspnea noted. Anasarca noted. HEENT: Atraumatic, PERRLA, EOMI, Normocephalic, - - Scleral injection without icterus Oral: Moist Mucosa, No Gingival or Mucosal Lesions/ Ulcerations Neck: Supple, No Nodes, Trachea Midline, JVD, Right Lungs: No wheeze, No rales, Diminished, Rhonchi - Bilateral, - - Symmetric expansion Cardiovascular: Normal S1, Normal S2, No murmurs, Irregular Rate, No rub noted, No Gallop, Tachycardic Abdomen: Bowel Sounds Present, Soft, Non Tender, Non-Distended, Obese Extremities: No clubbing, No cyanosis, Edema Skin: - - No change compared to previous Musculoskeletal: No Tenderness to Palpation of Joints or Extremities Lymphatic: No Cervical, Supraclavicular, or Inguinal Adenopathy Neurological: Cranial nerves II-XII grossly intact, Neuro grossly intact, Motor Exam 5/5 strength throughout Psych/Mental Status: Appropriate, Flat Affect Vital Signs Temp Pulse Resp BP Pulse Ox 36.6 C 125 H 22 H 90/75 97 04/25/20 06:51 04/25/20 06:51 04/25/20 06:51 04/25/20 06:51 04/25/20 06:51 Oxygen Flow Rate (L/min) 3 Oxygen Delivery Method Nasal Cannula Weight: 91.1 kg Body Mass Index (BMI) 31.7 Finger Stick Blood Glucose 394 Intake and Output for Last 24 Hours 04/23/20 04/24/20 04/25/20 23:59 23:59 23:59 Intake Total 1356.03 / 1356.03 1515.28 / 1515.28 300.00 / 300.00 Output Total 110 / 110 170 / 170 35 / 35 Balance 1246.03 / 1246.03 1345.28 / 1345.28 265.00 / 265.00 Labs (Last 48 Hours) 04/22/20 04/23/20 04/23/20 08:30 07:24 10:55 WBC 14.7 H RBC 4.26 Hgb 11.9 L Hct 38.1 MCV 89.4 MCH 27.9 MCHC 31.2 L RDW Std Deviation 61.1 H RDW Coeff of Blanca 19.9 H Plt Count 131 L MPV 10.4 Immature Gran % (Auto) 5.000 H Neut % (Auto) 87.1 H Lymph % (Auto) 2.5 L Williamson % (Auto) 4.1 Eos % (Auto) 0.7 Baso % (Auto) 0.6 Absolute Neuts (auto) 12.8 H Absolute Lymphs (auto) 0.37 L Total Counted Neutrophils % (Manual) Band Neutrophils % Lymphocytes % (Manual) Monocytes % (Manual) Metamyelocytes % Myelocytes % Nucleated RBC % 2.0 Diff Path Review Platelet Estimate Polychromasia Hypochromasia Stomatocytes [place] Cells Acanthocytes (Spur) PT INR APTT Sodium Potassium Chloride Carbon Dioxide Anion Gap BUN Creatinine Estim Creat Clear Calc Est GFR (MDRD) Af Amer Est GFR (MDRD) Non-Af BUN/Creatinine Ratio Glucose Calcium Phosphorus Total Bilirubin Direct Bilirubin AST ALT Alkaline Phosphatase Total Protein Albumin Globulin Albumin/Globulin Ratio Hepatitis A IgM Ab Negative Hep Bs Antigen Negative Hep B Core IgM Ab Negative Hepatitis C Ab (EIA) <0.1 POC Glucose 82 Blood Type 04/23/20 04/23/20 04/23/20 10:55 11:49 12:45 WBC RBC Hgb Hct MCV MCH MCHC RDW Std Deviation RDW Coeff of Blanca Plt Count MPV Immature Gran % (Auto) Neut % (Auto) Lymph % (Auto) Williamson % (Auto) Eos % (Auto) Baso % (Auto) Absolute Neuts (auto) Absolute Lymphs (auto) Total Counted Neutrophils % (Manual) Band Neutrophils % Lymphocytes % (Manual) Monocytes % (Manual) Metamyelocytes % Myelocytes % Nucleated RBC % Diff Path Review Platelet Estimate Polychromasia Hypochromasia Stomatocytes Helder Cells Acanthocytes (Spur) PT 51.3 H INR 5.7 H* APTT 43.3 H Sodium Potassium Chloride Carbon Dioxide Anion Gap BUN Creatinine Estim Creat Clear Calc Est GFR (MDRD) Af Amer Est GFR (MDRD) Non-Af BUN/Creatinine Ratio Glucose Calcium Phosphorus Total Bilirubin Direct Bilirubin AST ALT Alkaline Phosphatase Total Protein Albumin Globulin Albumin/Globulin Ratio Hepatitis A IgM Ab Hep Bs Antigen Hep B Core IgM Ab Hepatitis C Ab (EIA) POC Glucose 86 Blood Type O POSITIVE 04/23/20 04/23/20 04/24/20 16:40 21:57 04:00 WBC 9.2 RBC 3.72 L Hgb 10.1 L Hct 32.9 L MCV 88.4 MCH 27.2 MCHC 30.7 L RDW Std Deviation 61.4 H RDW Coeff of Blanca 19.4 H Plt Count 102 L MPV 10.3 Immature Gran % (Auto) 4.700 H Neut % (Auto) 87.4 H Lymph % (Auto) 3.6 L Williamson % (Auto) 2.4 Eos % (Auto) 1.6 Baso % (Auto) 0.3 Absolute Neuts (auto) 8.1 H Absolute Lymphs (auto) 0.33 L Total Counted Neutrophils % (Manual) Band Neutrophils % Lymphocytes % (Manual) Monocytes % (Manual) Metamyelocytes % Myelocytes % Nucleated RBC % 1.9 Diff Path Review Platelet Estimate MOD DEC Polychromasia RARE Hypochromasia 1+ Stomatocytes Helder Cells Acanthocytes (Spur) 2+ PT INR APTT Sodium Potassium Chloride Carbon Dioxide Anion Gap BUN Creatinine Estim Creat Clear Calc Est GFR (MDRD) Af Amer Est GFR (MDRD) Non-Af BUN/Creatinine Ratio Glucose Calcium Phosphorus Total Bilirubin Direct Bilirubin AST ALT Alkaline Phosphatase Total Protein Albumin Globulin Albumin/Globulin Ratio Hepatitis A IgM Ab Hep Bs Antigen Hep B Core IgM Ab Hepatitis C Ab (EIA) POC Glucose 107 101 Blood Type 04/24/20 04/24/20 04/24/20 04:00 04:00 04:00 WBC RBC Hgb Hct MCV MCH MCHC RDW Std Deviation RDW Coeff of Blanca Plt Count MPV Immature Gran % (Auto) Neut % (Auto) Lymph % (Auto) Williamson % (Auto) Eos % (Auto) Baso % (Auto) Absolute Neuts (auto) Absolute Lymphs (auto) Total Counted Neutrophils % (Manual) Band Neutrophils % Lymphocytes % (Manual) Monocytes % (Manual) Metamyelocytes % Myelocytes % Nucleated RBC % Diff Path Review Platelet Estimate Polychromasia Hypochromasia Stomatocytes [place] Cells Acanthocytes (Spur) PT 37.3 H INR 3.8 H* APTT Sodium 133 L Potassium 5.4 H Chloride 104 Carbon Dioxide 19.0 L Anion Gap BUN 87 H Creatinine 3.13 H Estim Creat Clear Calc 10.96 Est GFR (MDRD) Af Amer 18 L Est GFR (MDRD) Non-Af 15 L BUN/Creatinine Ratio 27.8 H Glucose 102 Calcium 7.2 L Phosphorus 5.8 H Total Bilirubin Cancelled Direct Bilirubin Cancelled AST Cancelled ALT Cancelled Alkaline Phosphatase Cancelled Total Protein Cancelled Albumin 2.5 L Cancelled Globulin Cancelled Albumin/Globulin Ratio Hepatitis A IgM Ab Hep Bs Antigen Hep B Core IgM Ab Hepatitis C Ab (EIA) POC Glucose Blood Type 04/24/20 04/24/20 04/24/20 04:00 11:12 16:24 WBC RBC Hgb Hct MCV MCH MCHC RDW Std Deviation RDW Coeff of Blanca Plt Count MPV Immature Gran % (Auto) Neut % (Auto) Lymph % (Auto) Williamson % (Auto) Eos % (Auto) Baso % (Auto) Absolute Neuts (auto) Absolute Lymphs (auto) Total Counted Neutrophils % (Manual) Band Neutrophils % Lymphocytes % (Manual) Monocytes % (Manual) Metamyelocytes % Myelocytes % Nucleated RBC % Diff Path Review Platelet Estimate Polychromasia Hypochromasia Stomatocytes [place] Cells Acanthocytes (Spur) PT INR APTT Sodium Potassium Chloride Carbon Dioxide Anion Gap BUN Creatinine Estim Creat Clear Calc Est GFR (MDRD) Af Amer Est GFR (MDRD) Non-Af BUN/Creatinine Ratio Glucose Calcium Phosphorus Total Bilirubin 1.50 H Direct Bilirubin 1.05 H AST 2819 H ALT 2281 H Alkaline Phosphatase 211 H Total Protein 5.0 L Albumin Globulin 2.4 Albumin/Globulin Ratio 1.1 Hepatitis A IgM Ab Hep Bs Antigen Hep B Core IgM Ab Hepatitis C Ab (EIA) POC Glucose 79 90 Blood Type 04/24/20 04/25/20 04/25/20 22:51 04:30 04:30 WBC 10.8 RBC 3.81 L Hgb 10.5 L Hct 33.8 L MCV 88.7 MCH 27.6 MCHC 31.1 L RDW Std Deviation 63.4 H RDW Coeff of Blanca 20.3 H Plt Count 79 L MPV 10.3 Immature Gran % (Auto) Neut % (Auto) Not Reportable Lymph % (Auto) Williamson % (Auto) Eos % (Auto) Baso % (Auto) Absolute Neuts (auto) 10.1 H Absolute Lymphs (auto) 0.22 L Total Counted 100 Neutrophils % (Manual) 88 H Band Neutrophils % 5 Lymphocytes % (Manual) 2 L Monocytes % (Manual) 4 Metamyelocytes % 3 H Myelocytes % 1 H Nucleated RBC % Diff Path Review May foll Platelet Estimate MOD DEC Polychromasia Hypochromasia 1+ Stomatocytes RARE [place] Cells 1+ Acanthocytes (Spur) PT INR APTT Sodium 136 Potassium 5.5 H Chloride 106 Carbon Dioxide 19.0 L Anion Gap 11 BUN 92 H Creatinine 3.35 H Estim Creat Clear Calc 10.24 Est GFR (MDRD) Af Amer 17 L Est GFR (MDRD) Non-Af 14 L BUN/Creatinine Ratio 27.5 H Glucose 93 Calcium 7.2 L Phosphorus Total Bilirubin 1.80 H Direct Bilirubin AST 1394 H ALT 1680 H Alkaline Phosphatase 222 H Total Protein 5.7 L Albumin 2.8 L Globulin 2.9 Albumin/Globulin Ratio 1.0 Hepatitis A IgM Ab Hep Bs Antigen Hep B Core IgM Ab Hepatitis C Ab (EIA) POC Glucose 82 Blood Type 04/25/20 04/25/20 04:30 06:48 WBC RBC Hgb Hct MCV MCH MCHC RDW Std Deviation RDW Coeff of Blanca Plt Count MPV Immature Gran % (Auto) Neut % (Auto) Lymph % (Auto) Williamson % (Auto) Eos % (Auto) Baso % (Auto) Absolute Neuts (auto) Absolute Lymphs (auto) Total Counted Neutrophils % (Manual) Band Neutrophils % Lymphocytes % (Manual) Monocytes % (Manual) Metamyelocytes % Myelocytes % Nucleated RBC % Diff Path Review Platelet Estimate Polychromasia Hypochromasia Stomatocytes Helder Cells Acanthocytes (Spur) PT 28.0 H INR 2.7 APTT 34.6 Sodium Potassium Chloride Carbon Dioxide Anion Gap BUN Creatinine Estim Creat Clear Calc Est GFR (MDRD) Af Amer Est GFR (MDRD) Non-Af BUN/Creatinine Ratio Glucose Calcium Phosphorus Total Bilirubin Direct Bilirubin AST ALT Alkaline Phosphatase Total Protein Albumin Globulin Albumin/Globulin Ratio Hepatitis A IgM Ab Hep Bs Antigen Hep B Core IgM Ab Hepatitis C Ab (EIA) POC Glucose 96 Blood Type Microbiology 04/19/20 11:43 Blood Culture (Wb) - Left Hand Blood Culture - Final No growth in 5 days. 04/19/20 11:20 Blood Culture (Wb) - Anticubital Right Blood Culture - Final No growth in 5 days. 04/20/20 12:30 Wound - Left Foot Gram Stain - Final 04/20/20 12:30 Wound - Left Foot Wound Culture - Final Staphylococcus aureus Staphylococcus epidermidis Enterococcus faecalis Enterobacter cloacae complex 04/20/20 12:30 Wound - Left Foot Anaerobic Culture - Final No anaerobic bacteria isolated. Medical Necessity - Tobacco Use Smoking Status: Never smoker Assessment/Plan All Active Problems (Last Reviewed 01/09/20 @ 11:16 by Sandy Hopson PA, PA) Diabetic infection of left foot (Acute) Paroxysmal atrial fibrillation with RVR (Acute) Lactic acidosis (Acute) Severe sepsis (Acute) Elevated serum creatinine (Acute) Hypotension (Acute) ULISSES (acute kidney injury) (Acute) Bronchitis (Acute) Ulcer of right lower extremity with fat layer exposed (Resolved) Ulcer of left lower extremity with fat layer exposed (Resolved) Chronic ulcer of left foot with fat layer exposed (Resolved) Chronic ulcer of right great toe with fat layer exposed (Resolved) Ulcer of left lower extremity with fat layer exposed (Resolved) Ulcer of right lower extremity with fat layer exposed (Resolved) Venous ulcers of both lower extremities (Resolved) Hyponatremia (Resolved) RECOMMENDATIONS: 1. Continue p.o. amiodarone 2. Continue current antibiotics to complete a 7-day course 3. Await patient decision on hemodialysis. Appreciate nephrology input 4. Administer FFP to facilitate dialysis line placement 5. Initiate low-dose pressors with a map goal of 70 6. Potential volume removal once acidosis improved IMPRESSIONS: 1. Severe sepsis secondary to diabetic foot ulcer with Charcot foot Patient reportedly has poor hygiene habits at baseline, likely leading to infection. Patient with Charcot foot and elevated CRP was significant concern for osteomyelitis. Patient currently being treated with vancomycin and Zosyn, but wound culture is showing multiple organisms. We will transition to cefepime therapy. Podiatry has been consulted and completed debridement with plans to address Charcot joint as an outpatient. Patient does have pulmonary hypertension, likely type II, at baseline so this is likely exacerbating by decreased urine output. Initiated pressors to help with renal perfusion prior to dialysis 2. A. fib with RVR/chronic diastolic CHF Patient appears to have responded well to amiodarone bolus and drip from a rate perspective in the past. This was discontinued secondary to concerns for hepatitis. Appreciate cardiology for long-term recommendations and optimization, especially given the need for possible surgery in the near future. Attempting to increase blood pressure goals to help with renal function. However, given tachycardia, will use Paras-Synephrine instead of Levophed. Amiodarone was restarted yesterday. 3. Diabetes mellitus type 2 leading to peripheral vascular disease, Charcot foot and diabetic foot ulcer Hold oral hypoglycemics given possibility of surgery and variable p.o. intake. Monitor with sliding scale insulin. Patient may need to be transitioned to insulin therapy for better control, but defer to endocrine as an outpatient. 4. Social concerns/pulmonary hypertension/hypertension/hyperlipidemia/advanced age/obesity Complicates care, management, recovery and prognosis. Case management to evaluate patient's living situation. Blood pressure medications have been held secondary to acute condition. Obesity does complicate recovery from Charcot joint. 5. Acute hepatitis Continues to improve. Exact etiology is unclear at this time. Some concern for hepatorenal syndrome. Patient's INR is improved, but this is likely secondary to FFP and vitamin K more than improvement in hepatic function. Acute hepatitis work-up is negative. Additional FFP has been ordered secondary to need for hemodialysis line placement 6. Acute kidney injury Clinical concern for hepatorenal syndrome. Await recommendations from nephrology. Will attempt to increase map to help with renal perfusion using Paras-Synephrine. Renal function appears to have stabilized, and urine output is improving. Defer to nephrology on whether urgent hemodialysis needs to be completed. FFP has been initiated to facilitate line placement if necessary. TIME: 32 minutes of critical care time spent addressing patient's severe sepsis, A. fib with RVR, hepatitis, anasarca with renal failure, review of all data in collaboration with care team (5:20 AM to 6:20 AM) [id number]: [id number] Critical care first hour
[2020-04-25] MEDS: Amiodarone 200 MG Tablet PO (09:20)
[2020-04-25] MEDS: Menthol/Lanolin/Calamine/Znox 113 GM Tube 1 APPLIC TOPICAL ×2 (09:20→21:08)
[2020-04-25] MEDS: Juven (unflavored) Packet 1 PACKET PO (09:20)
[2020-04-25] MEDS: Nystatin Powder 15gm Bottle 1 APPLIC TOPICAL (09:21)
[2020-04-25] MEDS: Senna/Docusate Sodium 1 Tablet 2 TABLET PO (09:22)
--- NOTE | 2020-04-25 09:39 | PN_ITS ---
Patient Problems: Active and Suspected Problems (Last Reviewed 01/09/20 @ 11:16 by Sandy Hopson PA, PA) Diabetic infection of left foot (Acute) Paroxysmal atrial fibrillation with RVR (Acute) Lactic acidosis (Acute) Severe sepsis (Acute) Elevated serum creatinine (Acute) Hypotension (Acute) ULISSES (acute kidney injury) (Acute) Subjective: Patient seen and examined. She complains of her hands feeling cold. She is coughing but is not able to expectorate. She denies any shortness of breath, nausea vomiting or diarrhea. She has remained tachycardic and tachypneic. He is on 3 L of oxygen now. Potassium is 5.5 today. Creatinine is trended up to 3.35 and bilirubin is up to 1.8. AST is however trending down. General surgery is going to put in a dialysis catheter today for patient to get dialysis. She is in positive balance by 14.99 L since admission. Vitals/I&O's: Vital Signs Temp Pulse Resp BP Pulse Ox 98.3 F 133 H 24 H 101/86 H 97 04/25/20 08:41 04/25/20 08:41 04/25/20 08:41 04/25/20 08:41 04/25/20 08:41 Oxygen Flow Rate (L/min) 3 Oxygen Delivery Method Nasal Cannula Weight: 200 lb 13.458 oz Body Mass Index (BMI) 31.7 Finger Stick Blood Glucose 394 Intake and Output for Last 24 Hours 04/23/20 04/24/20 04/25/20 23:59 23:59 23:59 Intake Total 1356.03 / 1356.03 1515.28 / 1515.28 337.86 / 337.86 Output Total 110 / 110 170 / 170 85 / 85 Balance 1246.03 / 1246.03 1345.28 / 1345.28 252.86 / 252.86 General: Alert, Oriented x3, Cooperative, Lethargic HEENT: Atraumatic, PERRLA, EOMI, Normocephalic Oral: Moist Mucosa Neck: Supple, No JVD, Negative Carotid Bruits Lungs: - - Decreased breath sounds bibasilarly. Coarse crackles in all lung rdoarte bilaterally. On 3 L of oxygen. Cardiovascular: Normal S1, Normal S2, No murmurs, Tachycardic Abdomen: Bowel Sounds Present, Soft, Non Tender, Non-Distended, No Hepato- splenomegaly Extremities: No clubbing, No cyanosis, - - Extremities have diminished peripheral pulses and cool to touch with mild 1+ bilateral pedal edema. Skin: No rashes, No breakdown Musculoskeletal: No Tenderness to Palpation of Joints or Extremities Neurological: Cranial nerves II-XII grossly intact, Neuro grossly intact, Motor Exam 5/5 strength throughout Psych/Mental Status: Normal Affect, Appropriate, Alert and oriented to time, place, person, mood and affect Microbiology Past 72 Hours 04/19/20 11:43 Blood Culture (Wb) - Left Hand Blood Culture - Final No growth in 5 days. 04/19/20 11:20 Blood Culture (Wb) - Anticubital Right Blood Culture - Final No growth in 5 days. 04/20/20 12:30 Wound - Left Foot Gram Stain - Final 04/20/20 12:30 Wound - Left Foot Wound Culture - Final Staphylococcus aureus Staphylococcus epidermidis Enterococcus faecalis Enterobacter cloacae complex 04/20/20 12:30 Wound - Left Foot Anaerobic Culture - Final No anaerobic bacteria isolated. Laboratory Results 04/24/20 11:12: POC Glucose 79 04/24/20 16:24: POC Glucose 90 04/24/20 22:51: POC Glucose 82 04/25/20 04:30: WBC 10.8, RBC 3.81 L, Hgb 10.5 L, Hct 33.8 L, MCV 88.7, MCH 27.6, MCHC 31.1 L, RDW Std Deviation 63.4 H, RDW Coeff of Blanca 20.3 H, Plt Count 79 L, MPV 10.3, Neut % (Auto) Not Reportable, Absolute Neuts (auto) 10.1 H, Absolute Lymphs (auto) 0.22 L, Total Counted 100, Neutrophils % (Manual) 88 H, Band Neutrophils % 5, Lymphocytes % (Manual) 2 L, Monocytes % (Manual) 4, Metamyelocytes % 3 H, Myelocytes % 1 H, Diff Path Review May , Platelet Estimate MOD DEC, Hypochromasia 1+, Stomatocytes RARE, Helder Cells 1+ 04/25/20 04:30: Sodium 136, Potassium 5.5 H, Chloride 106, Carbon Dioxide 19.0 L , Anion Gap 11, BUN 92 H, Creatinine 3.35 H, Estim Creat Clear Calc 10.24, Est GFR (MDRD) Af Amer 17 L, Est GFR (MDRD) Non-Af 14 L, BUN/Creatinine Ratio 27.5 H , Glucose 93, Calcium 7.2 L, Total Bilirubin 1.80 H, AST 1394 H, ALT 1680 H, Alkaline Phosphatase 222 H, Total Protein 5.7 L, Albumin 2.8 L, Globulin 2.9, Albumin/Globulin Ratio 1.0 04/25/20 04:30: PT 28.0 H, INR 2.7, APTT 34.6 04/25/20 06:48: POC Glucose 96 Diagnostic Data Foot X-Ray 04/19/20 09:46 IMPRESSION: Diffuse soft tissue swelling as well as osteopenia. Electronically Signed: Nestor Noonan, at 11:04 EDT , Service support , Lower Extremity MRI 04/20/20 12:38 IMPRESSION: 1. Mild to moderate Charcot arthropathy/osteoarthritis. No evidence of osteomyelitis or a soft tissue abscess. Electronically Signed: Pato Clarke MD at 19:23 EDT , Service support , Liver Ultrasound 04/22/20 08:24 IMPRESSION: Small amount of perihepatic fluid. Diffuse gallbladder wall thickening without pericholecystic fluid. Electronically Signed: Nestor Noonan, at 12:42 EDT , Service support , Chest X-Ray 04/22/20 13:45 IMPRESSION: The tip of the left PICC line catheter is at the junction of the superior vena cava and right atrium. Since prior study, has been improved aeration of both lungs. Electronically Signed: Nestor Noonan, at 14:07 EDT , Service support , Current Medications Acetaminophen (Tylenol) 650 mg PO Q6H PRN PRN PRN Reason: Pain Score 1-10/Temp > 100.7 F Last Admin: 04/24/20 11:03 Dose: 650 mg Documented by: Amiodarone HCl (Cordarone) 200 mg PO DAILYCM [facility] Last Admin: 04/25/20 09:20 Dose: 200 mg Documented by: Calamine/Phenol (Calmoseptine Ointment) 1 applic TOPICAL BID [facility]; Protocol Last Admin: 04/25/20 09:20 Dose: 1 applicatio Documented by: Dextrose (D50w Syringe) 0 gm IV X1 PRN; Protocol PRN Reason: Hypoglycemia Glucagon () 1 mg IM .X1 PRN PRN Reason: Hypoglycemia Guaifenesin (Robitussin) 10 ml PO Q6H PRN PRN PRN Reason: COUGH/CONGESTION Sodium Chloride () 250 mls @ 15 mls/hr IV .[id number] PRN PRN Reason: Saline Flush Last Infusion: 04/23/20 21:11 Dose: 0 mls/hr Documented by: Sodium Chloride () 250 mls @ 15 mls/hr IV .[id number] PRN PRN Reason: Additional IVPB Infusion Norepinephrine Bitartrate 8 mg (/ Sodium Chloride) 250 mls @ 9.375 mls/hr CONT INF .[id number] [facility]; Protocol Last Admin: 04/24/20 23:40 Dose: Not Given Documented by: Piperacillin Sod/Tazobactam (Sod 3.375 gm/ Sodium Chloride) 50 mls @ 12.5 mls/hr IV Q12 [facility] Stop: 04/26/20 22:01 Last Infusion: 04/25/20 02:57 Dose: Infused Documented by: Phenylephrine HCl 40 mg/ (Sodium Chloride) 250 mls @ 3.75 mls/hr CONT INF .[id number] [facility]; Protocol Last Titration: 04/25/20 07:00 Dose: 110 mcg/min, 41.3 mls/hr Documented by: Insulin Human Lispro (Humalog Kwikpen (Bkc)) 0 unit SC ACHS [facility]; Protocol Last Admin: 04/25/20 06:50 Dose: Not Given Documented by: Menthol (Bengay Vanishing Scent) 1 applic TOPICAL 4X/DAY PRN PRN PRN Reason: knee pain Last Admin: 09/04/20 06:07 Dose: 1 applic Documented by: Nutritional Formula (Lactose Free) (Glucerna Shake) 120 ml PO 4X/DAY [facility] Last Admin: 04/25/20 09:21 Dose: Not Given Documented by: Nystatin (Mycostatin Powder) 1 applic TOPICAL BID [facility]; Protocol Last Admin: 04/25/20 09:21 Dose: 1 applicatio Documented by: Ondansetron HCl (Zofran) 4 mg IV Q8H PRN PRN PRN Reason: NAUSEA/VOMITING Senna/Docusate Sodium (Senokot-S, Jessie-Colace) 2 tablet PO BID DONNIE Last Admin: 04/25/20 09:22 Dose: 2 tablet Documented by: Sodium Chloride () 10 - 40 ml IV UD PRN PRN Reason: SALINE FLUSH Last Admin: 04/24/20 20:26 Dose: 10 ml Documented by: STROKE Vital Signs/Narrative: Vital Signs Temp Pulse Resp BP Pulse Ox 04/25/20 08:41 98.3 F 133 H 24 H 101/86 H 97 04/25/20 08:26 98.1 F 122 H 22 H 81/63 L 97 04/25/20 07:00 121 H 22 H 112/84 H 95 04/25/20 06:51 97.9 F 125 H 22 H 90/75 97 04/25/20 06:00 132 H 22 H 90/75 91 Medical Necessity - Tobacco Use Smoking Status: Never smoker Assessment/Plan All Active Problems (Last Reviewed 01/09/20 @ 11:16 by Sandy Hopson PA, PA) Diabetic infection of left foot (Acute) Paroxysmal atrial fibrillation with RVR (Acute) Lactic acidosis (Acute) Severe sepsis (Acute) Elevated serum creatinine (Acute) Hypotension (Acute) ULISSES (acute kidney injury) (Acute) Bronchitis (Acute) Ulcer of right lower extremity with fat layer exposed (Resolved) Ulcer of left lower extremity with fat layer exposed (Resolved) Chronic ulcer of left foot with fat layer exposed (Resolved) Chronic ulcer of right great toe with fat layer exposed (Resolved) Ulcer of left lower extremity with fat layer exposed (Resolved) Ulcer of right lower extremity with fat layer exposed (Resolved) Venous ulcers of both lower extremities (Resolved) Hyponatremia (Resolved) # Severe sepsis due to diabetic foot ulcer * Still remains tachycardic and tachypneic. White cell count is trended down to 10.8 today * Wound culture grew Staphylococcus aureus and epidermidis as well as Enterococcus faecalis and Enterobacter [place]. * MRI showed no osteomyelitis but arterial study showed very poor blood flow to her lower extremities. * Podiatry on board-no plans for foot or ankle surgery. To proceed with bracing and, walker. * #Acute liver failure * Liver enzymes are now trending down; thought to be due to right-sided ventricular failure. Ultrasound of the liver did show diffuse gallbladder wall thickening without pericholecystic fluid. * liver enzymes still trending downards * #Elevated INR: INR today is 2.7 today. Receiving FFPs today, since she is going to have dialysis catheter inserted #Paroxysmal A. fib: * 2D echo done during this admission shows EF of 30% with severely dilated right ventricle and RVSP of 33 mmHg. * Cardiology on board. * on amiodarone. * #Hyperkalemia: Potassium is 5.5 today. Will give Kayexalate and trend potassium levels. #acute on Chronic heart failure with reduced ejection fraction: * Lisinopril on hold on account of renal dysfunction. Currently on Lasix drip. * In cumulative positive balance by 14.9L since admission * urine output is very scant, due to ULISSES. * For dialysis catheter placement today so she can have dialysis. * cardiology also on board * #Acute renal failure * Creatinine is trended up to 3.35 today. Also anuric. * Nephrology on board. * on Lasix drip. * For dialysis catheter placement today and then she will have dialysis. * #Acute hypoxic respiratory insufficiency: She is tachypneic and on 3 L of oxygen. due to acute on chronic HFrEF #Type 2 diabetes mellitus with diabetic foot ulcer and Charcot foot * On Lantus 10 units nightly. Insulin sliding scale. Accu-Cheks AC at bedtime. * DVT prophylaxis: Not indicated as she has supratherapeutic INR. Prognosis: patient is severely ill. Prognosis is guarded Inpatient E&M: [id number] [facility] Hosp L3
[2020-04-25] MEDS: Sodium Polystyrene Sulfonate 15 GM/60 ML UDC 30 GM PO (11:00)
[2020-04-25 11:36] LABS: Bedside Glucose 126 mg/dL (70-110)
[2020-04-25] MEDS: Phenylephrine 40 mg/250 mL 0.9% NS 48.8 MG CONT INF (12:20)
[2020-04-25 12:44] LABS: International Normalized Ratio 2.1; Prothrombin Time (Protime)PT. 23.2 SECONDS (11.7-14.9)
[2020-04-25] MEDS: 0.9% Saline Lock 10 ML Syringe IV (13:25)
--- NOTE | 2020-04-25 14:02 | RAD_ITS ---
STUDY: X-RAY CHEST REASON FOR EXAM: Female, 84 years old. Dialysis cath placement. TECHNIQUE: AP COMPARISON: 11/10/2018 FINDINGS: EKG leads project over the chest. Left arm PICC is present with tip projecting over the right atrium. Right jugular central venous catheter/dialysis catheter extends to the cavoatrial junction. Sternal wires are noted. Cardiac valve prosthesis similar. Persistent elevation the right hemidiaphragm. Bronchovascular attenuation likely due to hypoinflation. No airspace consolidation. Small right pleural effusion. There is mild cardiac enlargement. Normal mediastinum and pito. There is prominence of the pulmonary hilar arteries and peripheral pulmonary arteries, consistent with congestive heart failure (CHF). There is atherosclerotic calcification of the aortic arch with tortuosity. There is demineralization of the osseous structures. Normal visualized ribs, clavicles, and shoulders. There is no demonstrated abnormality of the visualized soft tissue structures of the upper abdomen. RAD/Chest 1 View (Portable) IMPRESSION: 1. Right jugular dialysis catheter extends to the cavoatrial junction. 2. Small right pleural effusion. 3. Chronic CHF/fluid overload. Electronically Signed: Huang Lakhani MD ([place]) at 15:04 EDT , Service support ,
--- NOTE | 2020-04-25 14:09 | OP.PCM_ITS ---
Problem List (1) ULISSES (acute kidney injury) Status: Acute Report of Operation Date of Procedure: 04/25/20 Pre-Operative Diagnosis: Acute kidney injury and need for dialysis Post-Operative Diagnosis: Same Surgery/Procedure Performed:: Ultrasound-guided right IJ temporary dialysis catheter placement Description of Procedure: Patient was placed into flat position and ultrasound was used to inspect the internal jugular on the right. Next the area was prepped and draped in usual sterile fashion. Under ultrasound guidance local anesthetic was placed in a small raimundo was made in the skin. Using a needle under ultrasound guidance it was placed into the IJ. The guidewire was placed without resistance. The needle was removed and serial dilators were placed over the guidewire. After th e dilators removed the catheter was placed over the guidewire into the right IJ and the guidewire was removed. Both ports were easily aspirated and flushed. Dark blood was returned and it was nonpulsatile. Next the catheter was sutured to the skin using the included nylon sutures. The catheters were each flushed with 1.5 cc of heparin and capped. Chest x-ray is pending. Patient tolerated the procedure well with minimal bleeding. Grafts/Implants Used: Curved temporary dialysis catheter
[2020-04-25] MEDS: Heparin 10,000 UNITS/10 ML Vial IV ×2 (14:10→19:45)
--- NOTE | 2020-04-25 14:22 | NURSING ---
Dialysis cath placed BY Dr. Chang cxr completed live verified by Dr. Chang Dialysis nurse was called will be in within 1 hour for treatment
--- NOTE | 2020-04-25 15:21 | PN.CARD_ITS ---
Subjectve: Patient says she feels better. She denies any cardiac complaints at this time. Her heart rate continues to remain elevated. She has been started on p.o. amiodarone. Her LFTs are trending down. Objective: Vital Signs Temp Pulse Resp BP Pulse Ox 98.4 F 128 H 25 H 100/88 H 99 04/25/20 11:24 04/25/20 14:00 04/25/20 14:00 04/25/20 14:00 04/25/20 14:00 Oxygen Flow Rate (L/min) 3 Oxygen Delivery Method Nasal Cannula Weight: 200 lb 13.458 oz Body Mass Index (BMI) 31.7 Finger Stick Blood Glucose 394 Intake and Output for Last 24 Hours 04/23/20 04/24/20 04/25/20 23:59 23:59 23:59 Intake Total 1356.03 / 1356.03 1515.28 / 1515.28 1719.33 / 1719.33 Output Total 110 / 110 170 / 170 135 / 135 Balance 1246.03 / 1246.03 1345.28 / 1345.28 1584.33 / 1584.33 General: Awake, Alert, Oriented x 3 Extremities: Bilateral Edema +3 Psych/Mental Status: Appropriate 04/25/20 04:30: WBC 10.8, RBC 3.81 L, Hgb 10.5 L, Hct 33.8 L, MCV 88.7, MCH 27.6, MCHC 31.1 L, Plt Count 79 L, MPV 10.3, Neut % (Auto) Not Reportable, Absolute Neuts (auto) 10.1 H, Total Counted 100, Neutrophils % (Manual) 88 H, Band Neutrophils % 5, Lymphocytes % (Manual) 2 L, Monocytes % (Manual) 4, Metamyelocytes % 3 H, Myelocytes % 1 H 04/25/20 04:30: Sodium 136, Potassium 5.5 H, Chloride 106, Carbon Dioxide 19.0 L , Anion Gap 11, BUN 92 H, Creatinine 3.35 H, Est GFR (MDRD) Af Amer 17 L, Est GFR (MDRD) Non-Af 14 L, BUN/Creatinine Ratio 27.5 H, Glucose 93, Calcium 7.2 L, Total Bilirubin 1.80 H 04/25/20 04:30: PT 28.0 H, INR 2.7, APTT 34.6 04/25/20 11:25: PT 23.2 H, INR 2.1 Rhythm: EKG: ECHO: Stress Test: Cardiac Cath: PCI: CT Surgery: Holter monitor: EPS: PPM: CXR: Chest CT Scan: Medical Necessity - Tobacco Use Smoking Status: Never smoker Assessment/Plan 1. Atrial fibrillation: Rate may be elevated due to patient's underlying illness. Since she is on pressors adding Cardizem or beta-aide is not an option. Because of acute kidney injury digoxin or sotalol are also not good choices. Amiodarone is a reasonable choice. However patient came in with liver injury as well. This is improving. Reasonable to keep the patient on amiodarone but continue monitoring her LFTs on a daily basis at this time. 2. LV dysfunction: EF was 30% on echo done on 04/22/2020. She is not a candidate for beta-aide or LUIS inhibitor's at this time. At a later time when she is off pressors and if her blood pressure will not tolerate beta-aide can be added.
--- NOTE | 2020-04-25 15:38 | PCM.PN.REN ---
Patient Problems: Active and Suspected Problems (Last Reviewed 01/09/20 @ 11:16 by Sandy Hopson PA, PA) Diabetic infection of left foot (Acute) Paroxysmal atrial fibrillation with RVR (Acute) Lactic acidosis (Acute) Severe sepsis (Acute) Elevated serum creatinine (Acute) Hypotension (Acute) ULISSES (acute kidney injury) (Acute) Subjective: Patient is feeling tired. still on phenylephrine On NC t 3l/m oliguric Temp Right IJ HD access was placed by surgeon this am after 3 FFP Us - Physical Exam Vitals/I&O's: Vital Signs Temp Pulse Resp BP Pulse Ox 98.1 F 127 H 27 H 75/25 L 100 04/25/20 15:20 04/25/20 15:20 04/25/20 15:20 04/25/20 15:20 04/25/20 15:20 Oxygen Flow Rate (L/min) 3 Oxygen Delivery Method Nasal Cannula Weight: 91.1 kg Body Mass Index (BMI) 31.7 Finger Stick Blood Glucose 394 Intake and Output for Last 24 Hours 04/23/20 04/24/20 04/25/20 23:59 23:59 23:59 Intake Total 1356.03 / 1356.03 1515.28 / 1515.28 1784.40 / 1784.40 Output Total 110 / 110 170 / 170 135 / 135 Balance 1246.03 / 1246.03 1345.28 / 1345.28 1649.40 / 1649.40 General: Alert, - - ill looking. seems gasping for air HEENT: Atraumatic Oral: Dry Mucosa Neck: Supple, No JVD Lungs: Tachypneic, - - B/L coarse BS Cardiovascular: Tachycardic Abdomen: Bowel Sounds Present, Non Tender Extremities: No clubbing, No cyanosis, Edema - anasarca Skin: No rashes Lymphatic: No Cervical, Supraclavicular, or Inguinal Adenopathy Psych/Mental Status: - - looks weak and tired Microbiology Past 72 Hours 04/19/20 11:43 Blood Culture (Wb) - Left Hand Blood Culture - Final No growth in 5 days. 04/19/20 11:20 Blood Culture (Wb) - Anticubital Right Blood Culture - Final No growth in 5 days. 04/20/20 12:30 Wound - Left Foot Gram Stain - Final 04/20/20 12:30 Wound - Left Foot Wound Culture - Final Staphylococcus aureus Staphylococcus epidermidis Enterococcus faecalis Enterobacter cloacae complex 04/20/20 12:30 Wound - Left Foot Anaerobic Culture - Final No anaerobic bacteria isolated. Laboratory Results 04/24/20 16:24: POC Glucose 90 04/24/20 22:51: POC Glucose 82 04/25/20 04:30: WBC 10.8, RBC 3.81 L, Hgb 10.5 L, Hct 33.8 L, MCV 88.7, MCH 27.6, MCHC 31.1 L, RDW Std Deviation 63.4 H, RDW Coeff of Blanca 20.3 H, Plt Count 79 L, MPV 10.3, Neut % (Auto) Not Reportable, Absolute Neuts (auto) 10.1 H, Absolute Lymphs (auto) 0.22 L, Total Counted 100, Neutrophils % (Manual) 88 H, Band Neutrophils % 5, Lymphocytes % (Manual) 2 L, Monocytes % (Manual) 4, Metamyelocytes % 3 H, Myelocytes % 1 H, Diff Path Review May foll, Platelet Estimate MOD DEC, Hypochromasia 1+, Stomatocytes RARE, Helder Cells 1+ 04/25/20 04:30: Sodium 136, Potassium 5.5 H, Chloride 106, Carbon Dioxide 19.0 L, Anion Gap 11, BUN 92 H, Creatinine 3.35 H, Estim Creat Clear Calc 10.24, Est GFR (MDRD) Af Amer 17 L, Est GFR (MDRD) Non-Af 14 L, BUN/Creatinine Ratio 27.5 H, Glucose 93, Calcium 7.2 L, Total Bilirubin 1.80 H, AST 1394 H, ALT 1680 H, Alkaline Phosphatase 222 H, Total Protein 5.7 L, Albumin 2.8 L, Globulin 2.9, Albumin/Globulin Ratio 1.0 04/25/20 04:30: PT 28.0 H, INR 2.7, APTT 34.6 04/25/20 06:48: POC Glucose 96 04/25/20 11:25: PT 23.2 H, INR 2.1 04/25/20 11:33: POC Glucose 126 H Current Medications Acetaminophen (Tylenol) 650 mg PO Q6H PRN PRN PRN Reason: Pain Score 1-10/Temp > 100.7 F Last Admin: 04/24/20 11:03 Dose: 650 mg Documented by: Amiodarone HCl (Cordarone) 200 mg PO DAILYCM [facility] Last Admin: 04/25/20 09:20 Dose: 200 mg Documented by: Calamine/Phenol (Calmoseptine Ointment) 1 applic TOPICAL BID [facility]; Protocol Last Admin: 04/25/20 09:20 Dose: 1 applicatio Documented by: Dextrose (D50w Syringe) 0 gm IV X1 PRN; Protocol PRN Reason: Hypoglycemia Glucagon () 1 mg IM .X1 PRN PRN Reason: Hypoglycemia Guaifenesin (Robitussin) 10 ml PO Q6H PRN PRN PRN Reason: COUGH/CONGESTION Sodium Chloride () 250 mls @ 15 mls/hr IV .[id number] PRN PRN Reason: Saline Flush Last Infusion: 04/23/20 21:11 Dose: 0 mls/hr Documented by: Sodium Chloride () 250 mls @ 15 mls/hr IV .[id number] PRN PRN Reason: Additional IVPB Infusion Norepinephrine Bitartrate 8 mg (/ Sodium Chloride) 250 mls @ 9.375 mls/hr CONT INF .[id number] [facility]; Protocol Last Admin: 04/24/20 23:40 Dose: Not Given Documented by: Piperacillin Sod/Tazobactam (Sod 3.375 gm/ Sodium Chloride) 50 mls @ 12.5 mls/hr IV Q12 [facility] Stop: 04/26/20 22:01 Last Admin: 04/25/20 11:16 Dose: 12.5 mls/hr Documented by: Phenylephrine HCl 40 mg/ (Sodium Chloride) 250 mls @ 3.75 mls/hr CONT INF .[id number] [facility]; Protocol Last Titration: 04/25/20 15:20 Dose: 160 mcg/min, 60 mls/hr Documented by: Insulin Human Lispro (Humalog Kwikpen (Bkc)) 0 unit SC ACHS [facility]; Protocol Last Admin: 04/25/20 11:35 Dose: Not Given Documented by: Menthol (Bengay Vanishing Scent) 1 applic TOPICAL 4X/DAY PRN PRN PRN Reason: knee pain Last Admin: 04/23/20 06:07 Dose: 1 applic Documented by: Nutritional Formula (Lactose Free) (Dionte Hernández) 120 ml PO 4X/DAY DONNIE Last Admin: 04/25/20 14:26 Dose: Not Given Documented by: Nystatin (Mycostatin Powder) 1 applic TOPICAL BID [facility]; Protocol Last Admin: 04/25/20 09:21 Dose: 1 applicatio Documented by: Ondansetron HCl (Zofran) 4 mg IV Q8H PRN PRN PRN Reason: NAUSEA/VOMITING Senna/Docusate Sodium (Senokot-S, Jessie-Colace) 2 tablet PO BID DONNIE Last Admin: 04/25/20 09:22 Dose: 2 tablet Documented by: Sodium Chloride () 10 - 40 ml IV UD PRN PRN Reason: SALINE FLUSH Last Admin: 04/25/20 13:25 Dose: 40 ml Documented by: Medical Necessity - Tobacco Use Smoking Status: Never smoker Assessment/Plan All Active Problems (Last Reviewed 01/09/20 @ 11:16 by Sandy Hopson PA, PA) Diabetic infection of left foot (Acute) Paroxysmal atrial fibrillation with RVR (Acute) Lactic acidosis (Acute) Severe sepsis (Acute) Elevated serum creatinine (Acute) Hypotension (Acute) ULISSES (acute kidney injury) (Acute) Bronchitis (Acute) Ulcer of right lower extremity with fat layer exposed (Resolved) Ulcer of left lower extremity with fat layer exposed (Resolved) Chronic ulcer of left foot with fat layer exposed (Resolved) Chronic ulcer of right great toe with fat layer exposed (Resolved) Ulcer of left lower extremity with fat layer exposed (Resolved) Ulcer of right lower extremity with fat layer exposed (Resolved) Venous ulcers of both lower extremities (Resolved) Hyponatremia (Resolved) 1- ULISSES . likely HRS and possible ATN Patient has not been oliguric with poor response to IV diuretics BUN and Cr are increasing. Patient wants to pursue full care and code.She agreed with HD HD access temp right IJ TC HD today with goal of 2L UF as tolerated. Likely needs HD again tomorrow Keep MAP > 65 2-Hyperkalemia: likely from ULISSES Mild. should improve with HD 3- metabolic acidosis. likely from ULISSES Should improve with HD 4- Septic shock from diabetic foot ulcer infection Abx and hemodynamic support as per ICU team 5- shock liver. LFTs improving Renal team will continue to follow Please call if ay question at [phone] Samara Tse MD
[2020-04-25 17:06] LABS: Bedside Glucose 105 mg/dL (70-110)
[2020-04-25] MEDS: Phenylephrine 40 mg/250 mL 0.9% NS 60 MG CONT INF (17:11)
[2020-04-25] MEDS: Albumin Human 25% (100 mL) 25 GM/100 ML BAG IV (17:15)
--- NOTE | 2020-04-25 19:46 | DIALYSIS ---
Hemodialysis complete x 2.5 hours. Patient was hypotensive prior to start of treatment. Albumin 25gm given during treatment. BP stable during treatment. 1500 ml net fluid removed. Report given to José Manuel.
[2020-04-25 21:20] LABS: Bedside Glucose 107 mg/dL (70-110)
[2020-04-25] MEDS: Phenylephrine 40 mg/250 mL 0.9% NS 52.5 MG CONT INF (21:46)
[2020-04-25] MEDS: Amiodarone 360 MG in Dextrose 5% Viaflo Bag 192.8 ML 16.7 MG CONT INF (21:50)
[2020-04-26] VITALS (53 sets, daily range): BP systolic 58–117; BP diastolic 24–91; PULSE 115–163; RESP 12–32; TEMP 36.1–36.6; O2SAT 90–100
[2020-04-26] MEDS: Phenylephrine 40 mg/250 mL 0.9% NS 60 MG CONT INF ×4 (01:51→14:17)
[2020-04-26] MEDS: Dextrose 50%-Water 25 GM/50 ML DISP.SYRIN IV ×2 (05:59→06:24)
[2020-04-26] MEDS: 0.9% Saline Lock 10 ML Syringe IV (05:59)
[2020-04-26 06:01] LABS: Hematocrit 31.8 % (37-47); Hemoglobin 9.6 g/dL (12.0-15.0); Mean Corp Hgb Conc 30.2 g/dL (32-36); Mean Corpuscular Hgb 27.4 pg (27.0-32.0); Mean Corpuscular Volume 90.6 fL (81-99); POSITIVE COUNT YES; POSITIVE DIFFERENTIAL YES; POSITIVE MORPHOLOGY YES; RBC Distribution Width CV 20.8 % (11.6-14.6); RBC Distribution Width SD 64.7 fl (35.1-43.9); Red Blood Count 3.51 M/mm3 (4.2-5.4)
[2020-04-26 06:18] LABS: Differential Indicated MANUAL DIFF
[2020-04-26 06:19] LABS: AST(SGOT) 820 U/L (15-37); Alanine Aminotransfer ALT/SGPT 1141 U/L (13-56); Alkaline Phosphatase 196 U/L (45-117); Anion Gap 14 (5-15); BUN 71 mg/dL (7-18); BUN/Creat Ratio 24.3 RATIO (10-20); Calcium,Total 7.2 mg/dL (8.5-10.1); Chloride 104 mmol/L (98-107); Creatinine, Serum 2.92 mg/dL (0.55-1.02); EST Glomerular Filtration Rate 16 mL/min (>60); Est Glom Filt Rate - Afr Amer 20 mL/min (>60); Estimated Creatinine Clearance 11.75 ml/min; Globulin 2.9 g/dL (2.2-4.2); Glucose 112 mg/dL (74-106); Potassium 4.6 mmol/L (3.5-5.1); Protein, Total 5.9 g/dL (6.4-8.2); Sodium Level 137 mmol/L (136-145)
--- NOTE | 2020-04-26 06:20 | PN_ITS ---
Subjective: The patient was seen and examined at the bedside this morning. Events from the last 24 hours have been reviewed. The patient appears to be in more respiratory distress than that described yesterday. She also appears to be in atrial fibrillation with a rapid ventricular rate. She is currently receiving hemodialysis. She remains on Levophed and Paras-Synephrine in an attempt to maintain hemodynamic stability. Platelet count continues to drop and is currently 29,000. However, hemoglobin remains relatively stable at 9.6 g/dL. Liver enzymes continue to improve. The patient is currently documented to be overall net +16 L for the hospital admission. Objective: The patient's most recent lab work, culture data and imaging studies have all been personally reviewed. Surface echocardiogram dated April 22, 2020 revealed normal LV size with an ejection fraction of 30%. The RV was severely dilated with mild to moderate global RV systolic dysfunction. Right ventricular systolic pressure was estimated to be 33 mmHg. General: Lethargic, - - Quite ill in appearance. HEENT: Atraumatic, Normocephalic Oral: Dry Mucosa Neck: Supple, No Nodes, Trachea Midline, - - Temporary hemodialysis catheter in place Lungs: Diminished, Rhonchi, Short of Breath, Tachypneic Cardiovascular: Normal S1, Normal S2, Irregular Rate, Tachycardic Abdomen: Bowel Sounds Present, Soft, Non Tender, Obese Extremities: No clubbing, No cyanosis, Edema Skin: - - Wrapped left foot ulcer Musculoskeletal: No Muscle Wasting Lymphatic: No Cervical, Supraclavicular, or Inguinal Adenopathy Neurological: - - Minimally responsive to verbal stimulation. Vital Signs Temp Pulse Resp BP Pulse Ox 97.8 F 128 H 23 H 90/55 L 98 04/26/20 00:00 04/26/20 06:00 04/26/20 06:00 04/26/20 06:00 04/26/20 06:00 Oxygen Flow Rate (L/min) 3 Oxygen Delivery Method Nasal Cannula Weight: 200 lb 13.458 oz Body Mass Index (BMI) 31.7 Finger Stick Blood Glucose 394 Intake and Output for Last 24 Hours 04/24/20 04/25/20 04/26/20 23:59 23:59 23:59 Intake Total 1515.28 / 1515.28 2434.17 / 2438.87 551.41 / 551.41 Output Total 170 / 170 1710 / 1710 55 / 55 Balance 1345.28 / 1345.28 724.17 / 728.87 496.41 / 496.41 Labs (Last 48 Hours) 04/24/20 04/24/20 04/24/20 04:00 04:00 04:00 WBC 9.2 RBC 3.72 L Hgb 10.1 L Hct 32.9 L MCV 88.4 MCH 27.2 MCHC 30.7 L RDW Std Deviation 61.4 H RDW Coeff of Blanca 19.4 H Plt Count 102 L MPV 10.3 Immature Gran % (Auto) 4.700 H Neut % (Auto) 87.4 H Lymph % (Auto) 3.6 L [place] % (Auto) 2.4 Eos % (Auto) 1.6 Baso % (Auto) 0.3 Absolute Neuts (auto) 8.1 H Absolute Lymphs (auto) 0.33 L Total Counted Neutrophils % (Manual) Band Neutrophils % Lymphocytes % (Manual) Monocytes % (Manual) Metamyelocytes % Myelocytes % Nucleated RBC % 1.9 Diff Path Review Platelet Estimate MOD DEC Polychromasia RARE Hypochromasia 1+ Stomatocytes [place] Cells Acanthocytes (Spur) 2+ PT INR APTT Sodium Potassium Chloride Carbon Dioxide Anion Gap BUN Creatinine Estim Creat Clear Calc Est GFR (MDRD) Af Amer Est GFR (MDRD) Non-Af BUN/Creatinine Ratio Glucose Calcium Total Bilirubin Cancelled 1.50 H Direct Bilirubin Cancelled 1.05 H AST Cancelled 2819 H ALT Cancelled 2281 H Alkaline Phosphatase Cancelled 211 H Total Protein Cancelled 5.0 L Albumin Cancelled Globulin Cancelled 2.4 Albumin/Globulin Ratio 1.1 Hep Bs Antigen POC Glucose 04/24/20 04/24/20 04/24/20 11:12 16:24 22:51 WBC RBC Hgb Hct MCV MCH MCHC RDW Std Deviation RDW Coeff of Blanca Plt Count MPV Immature Gran % (Auto) Neut % (Auto) Lymph % (Auto) [place] % (Auto) Eos % (Auto) Baso % (Auto) Absolute Neuts (auto) Absolute Lymphs (auto) Total Counted Neutrophils % (Manual) Band Neutrophils % Lymphocytes % (Manual) Monocytes % (Manual) Metamyelocytes % Myelocytes % Nucleated RBC % Diff Path Review Platelet Estimate Polychromasia Hypochromasia Stomatocytes [place] Cells Acanthocytes (Spur) PT INR APTT Sodium Potassium Chloride Carbon Dioxide Anion Gap BUN Creatinine Estim Creat Clear Calc Est GFR (MDRD) Af Amer Est GFR (MDRD) Non-Af BUN/Creatinine Ratio Glucose Calcium Total Bilirubin Direct Bilirubin AST ALT Alkaline Phosphatase Total Protein Albumin Globulin Albumin/Globulin Ratio Hep Bs Antigen POC Glucose 79 90 82 04/25/20 04/25/20 04/25/20 04:30 04:30 04:30 WBC 10.8 RBC 3.81 L Hgb 10.5 L Hct 33.8 L MCV 88.7 MCH 27.6 MCHC 31.1 L RDW Std Deviation 63.4 H RDW Coeff of Blanca 20.3 H Plt Count 79 L MPV 10.3 Immature Gran % (Auto) Neut % (Auto) Not Reportable Lymph % (Auto) [place] % (Auto) Eos % (Auto) Baso % (Auto) Absolute Neuts (auto) 10.1 H Absolute Lymphs (auto) 0.22 L Total Counted 100 Neutrophils % (Manual) 88 H Band Neutrophils % 5 Lymphocytes % (Manual) 2 L Monocytes % (Manual) 4 Metamyelocytes % 3 H Myelocytes % 1 H Nucleated RBC % Diff Path Review May foll Platelet Estimate MOD DEC Polychromasia Hypochromasia 1+ Stomatocytes RARE [place] Cells 1+ Acanthocytes (Spur) PT 28.0 H INR 2.7 APTT 34.6 Sodium 136 Potassium 5.5 H Chloride 106 Carbon Dioxide 19.0 L Anion Gap 11 BUN 92 H Creatinine 3.35 H Estim Creat Clear Calc 10.24 Est GFR (MDRD) Af Amer 17 L Est GFR (MDRD) Non-Af 14 L BUN/Creatinine Ratio 27.5 H Glucose 93 Calcium 7.2 L Total Bilirubin 1.80 H Direct Bilirubin AST 1394 H ALT 1680 H Alkaline Phosphatase 222 H Total Protein 5.7 L Albumin 2.8 L Globulin 2.9 Albumin/Globulin Ratio 1.0 Hep Bs Antigen POC Glucose 04/25/20 04/25/20 04/25/20 06:48 11:25 11:33 WBC RBC Hgb Hct MCV MCH MCHC RDW Std Deviation RDW Coeff of Blanca Plt Count MPV Immature Gran % (Auto) Neut % (Auto) Lymph % (Auto) [place] % (Auto) Eos % (Auto) Baso % (Auto) Absolute Neuts (auto) Absolute Lymphs (auto) Total Counted Neutrophils % (Manual) Band Neutrophils % Lymphocytes % (Manual) Monocytes % (Manual) Metamyelocytes % Myelocytes % Nucleated RBC % Diff Path Review Platelet Estimate Polychromasia Hypochromasia Stomatocytes Helder Cells Acanthocytes (Spur) PT 23.2 H INR 2.1 APTT Sodium Potassium Chloride Carbon Dioxide Anion Gap BUN Creatinine Estim Creat Clear Calc Est GFR (MDRD) Af Amer Est GFR (MDRD) Non-Af BUN/Creatinine Ratio Glucose Calcium Total Bilirubin Direct Bilirubin AST ALT Alkaline Phosphatase Total Protein Albumin Globulin Albumin/Globulin Ratio Hep Bs Antigen POC Glucose 96 126 H 04/25/20 04/25/20 04/26/20 17:00 21:06 05:35 WBC Pending RBC Pending Hgb Pending Hct Pending MCV Pending MCH Pending MCHC Pending RDW Std Deviation Pending RDW Coeff of Blanca Pending Plt Count Pending MPV Immature Gran % (Auto) Neut % (Auto) Pending Lymph % (Auto) [place] % (Auto) Eos % (Auto) Baso % (Auto) Absolute Neuts (auto) Pending Absolute Lymphs (auto) Total Counted Neutrophils % (Manual) Band Neutrophils % Lymphocytes % (Manual) Monocytes % (Manual) Metamyelocytes % Myelocytes % Nucleated RBC % Diff Path Review Platelet Estimate Polychromasia Hypochromasia Stomatocytes [place] Cells Acanthocytes (Spur) PT INR APTT Sodium Potassium Chloride Carbon Dioxide Anion Gap BUN Creatinine Estim Creat Clear Calc Est GFR (MDRD) Af Amer Est GFR (MDRD) Non-Af BUN/Creatinine Ratio Glucose Calcium Total Bilirubin Direct Bilirubin AST ALT Alkaline Phosphatase Total Protein Albumin Globulin Albumin/Globulin Ratio Hep Bs Antigen POC Glucose 105 107 04/26/20 04/26/20 05:35 05:35 WBC RBC Hgb Hct MCV MCH MCHC RDW Std Deviation RDW Coeff of Blanca Plt Count MPV Immature Gran % (Auto) Neut % (Auto) Lymph % (Auto) [place] % (Auto) Eos % (Auto) Baso % (Auto) Absolute Neuts (auto) Absolute Lymphs (auto) Total Counted Neutrophils % (Manual) Band Neutrophils % Lymphocytes % (Manual) Monocytes % (Manual) Metamyelocytes % Myelocytes % Nucleated RBC % Diff Path Review Platelet Estimate Polychromasia Hypochromasia Stomatocytes Helder Cells Acanthocytes (Spur) PT INR APTT Sodium 137 Potassium 4.6 Chloride 104 Carbon Dioxide 19.0 L Anion Gap 14 BUN 71 H Creatinine 2.92 H Estim Creat Clear Calc 11.75 Est GFR (MDRD) Af Amer 20 L Est GFR (MDRD) Non-Af 16 L BUN/Creatinine Ratio 24.3 H Glucose 112 H Calcium 7.2 L Total Bilirubin 2.60 H Direct Bilirubin AST 820 H ALT 1141 H Alkaline Phosphatase 196 H Total Protein 5.9 L Albumin 3.0 L Globulin 2.9 Albumin/Globulin Ratio 1.0 Hep Bs Antigen Pending POC Glucose Microbiology 04/19/20 11:43 Blood Culture (Wb) - Left Hand Blood Culture - Final No growth in 5 days. 04/19/20 11:20 Blood Culture (Wb) - Anticubital Right Blood Culture - Final No growth in 5 days. Clinical Impression(s) from Imaging Studies Foot X-Ray 04/19/20 09:46 IMPRESSION: Diffuse soft tissue swelling as well as osteopenia. Electronically Signed: Nestor Noonan, at 11:04 EDT , Service support , Chest X-Ray 04/19/20 10:25 IMPRESSION: Blunting of the right costophrenic angle. This is unchanged. Electronically Signed: Nestor Noonan, at 11:06 EDT , Service support , Lower Extremity MRI 04/20/20 12:38 IMPRESSION: 1. Mild to moderate Charcot arthropathy/osteoarthritis. No evidence of osteomyelitis or a soft tissue abscess. Electronically Signed: Pato Clarke MD at 19:23 EDT , Service support , Chest X-Ray 04/22/20 00:57 IMPRESSION: Probable new small right pleural effusion. New patchy bibasilar densities compatible with subsegmental atelectasis or pneumonia. Electronically Signed: Guicho Smith MD at 2:32 EDT , Service support , Liver Ultrasound 04/22/20 08:24 IMPRESSION: Small amount of perihepatic fluid. Diffuse gallbladder wall thickening without pericholecystic fluid. Electronically Signed: Nestor Ngomarcelo, at 12:42 EDT , Service support , Chest X-Ray 04/22/20 13:45 IMPRESSION: The tip of the left PICC line catheter is at the junction of the superior vena cava and right atrium. Since prior study, has been improved aeration of both lungs. Electronically Signed: Nestor Saran, at 14:07 EDT , Service support , Chest X-Ray 04/25/20 14:02 IMPRESSION: 1. Right jugular dialysis catheter extends to the cavoatrial junction. 2. Small right pleural effusion. 3. Chronic CHF/fluid overload. Electronically Signed: Huang Lakhani MD ([place]) at 15:04 EDT , Service support , Medical Necessity - Tobacco Use Smoking Status: Never smoker Assessment/Plan All Active Problems (Last Reviewed 01/09/20 @ 11:16 by Sandy GOLDMAN, PA) Diabetic infection of left foot (Acute) Paroxysmal atrial fibrillation with RVR (Acute) Lactic acidosis (Acute) Severe sepsis (Acute) Elevated serum creatinine (Acute) Hypotension (Acute) ULISSES (acute kidney injury) (Acute) Bronchitis (Acute) Ulcer of right lower extremity with fat layer exposed (Resolved) Ulcer of left lower extremity with fat layer exposed (Resolved) Chronic ulcer of left foot with fat layer exposed (Resolved) Chronic ulcer of right great toe with fat layer exposed (Resolved) Ulcer of left lower extremity with fat layer exposed (Resolved) Ulcer of right lower extremity with fat layer exposed (Resolved) Venous ulcers of both lower extremities (Resolved) Hyponatremia (Resolved) RECOMMENDATIONS: 1. Obtain arterial blood gas. 2. Continue vasopressor support to maintain hemodynamic stability. 3. Continue antimicrobials. 4. Continue rate/rhythm control strategy per cardiology recommendations. 5. Check troponin and ammonia. 6. Continue additional volume optimization via hemodialysis per nephrology recommendations. 7. Continue to monitor hepatic function closely. IMPRESSIONS: 1. Septic shock secondary to diabetic foot ulcer Continue current supportive measures, including antimicrobial therapy and vasopressor support to maintain a mean arterial pressure at or above 65 mmHg. 2. Acute combined respiratory failure The patient was less responsive this morning and subsequent arterial blood gas revealed evidence of acute combined respiratory failure, which is likely multifactorial in etiology. The patient does have underlying atrial fibrillation and remains in a rapid ventricular rate and is currently in a state of decompensated heart failure. Attempts at volume optimization have been limited by the patient's vasopressor requirement. Continue hemodialysis as tolerated. 3. Atrial fibrillation with RVR/decompensated heart failure with reduced ejection fraction Continue medical management per cardiology recommendations. Appreciate input regarding atrial fibrillation management. 4. Encephalopathy The patient appeared to be less responsive this morning. Therefore, stat arterial blood gas was obtained and revealed acute CO2 retention. The patient will be continued on BiPAP therapy as tolerated. Continue to hold all potential sedating medications. 5. Acute hepatitis Exact etiology is unclear. However, there has been slow overall improvement in the patient's transaminase levels. 6. Acute kidney injury Concern for possible hepatorenal syndrome and ischemic ATN. Plan to continue current supportive measures including hemodialysis per nephrology recommendations. 7. Thrombocytopenia Likely secondary to #1. Plan to continue to monitor. No overt signs of blood l oss at the current time. 8. Diabetes mellitus/peripheral vascular disease/pulmonary hypertension/hypertension/hyperlipidemia/advanced age/obesity Complicates care, management, recovery and prognosis. Continue sliding scale insulin coverage for now. CODE status: Discussed CODE status at length including difference between FULL code, DNR-CCA and DNR-CC status. Following discussions about the differences in these status, patient's family requested DNR CCA without intubation CODE STATUS. Advanced Care Planning Face to Face Time: 12 minutes TIME: 40 minutes of critical care time, independent of procedures, was spent addressing the patient's septic shock secondary to diabetic foot ulcer, acute combined respiratory failure, atrial fibrillation with RVR, decompensated heart failure, encephalopathy, thrombocytopenia, review of all data and collaboration with the care team. [id number]) [id number]: [id number] Critical care first hour
[2020-04-26 06:24] LABS: Platelet Count 29 K/mm3 (150-450)
[2020-04-26 06:40] LABS: Bedside Glucose 66 mg/dL (70-110)
[2020-04-26 06:40] LABS: Bedside Glucose 37 mg/dL (70-110)
[2020-04-26 06:45] LABS: Corrected WBC 10.8 K/mm3 (4.4-11.0); Lymphocyte 4 % (19-41); Metamyelocyte 5 % (0-1); Monocyte 6 % (0-10); Myelocyte 2 (0-0); Neutrophil-Band 1 % (0-5); Neutrophil-Segmented 82 % (47-70); Nucleated Red Bld Cells,Manual 12 % (0-5); Total Cells Counted 100 (MANUAL DIFF)
[2020-04-26 06:46] LABS: Acanthocytes 3+; Hypochromasia 2+; Macrocytosis 2+; Platelet Estimate MKD DEC (ADEQ)
[2020-04-26 06:47] LABS: Microcytosis 1+
[2020-04-26 06:48] LABS: Absolute Lymphocyte Count 0.43 X10^3/uL (0.83-4.51); Lymphocyte # 0.43 X10^3/ul (4.0)
[2020-04-26 06:49] LABS: Neutrophil # 8.96 X10^3/uL (2.7-7.7)
[2020-04-26 07:05] LABS: Neutrophil-Band 4 % (0-5); Neutrophil-Segmented 85 % (47-70)
[2020-04-26 07:06] LABS: Lymphocyte 3 % (19-41); Metamyelocyte 4 % (0-1)
[2020-04-26 07:07] LABS: Nucleated Red Bld Cells,Manual 5 % (0-5)
[2020-04-26 07:08] LABS: Absolute Lymphocyte Count 0.33 X10^3/uL (0.83-4.51); Absolute Neutrophil Count 9.8 X10^3/uL (2.0-7.7); Acanthocytes 2+; Lymphocyte # 0.33 X10^3/ul (4.0); Neutrophil # 9.79 X10^3/uL (2.7-7.7)
[2020-04-26 07:10] LABS: Bedside Glucose 101 mg/dL (70-110)
--- NOTE | 2020-04-26 07:50 | PN_ITS ---
Patient Problems: Active and Suspected Problems (Last Reviewed 01/09/20 @ 11:16 by Sandy Hopson PA, PA) Diabetic infection of left foot (Acute) Paroxysmal atrial fibrillation with RVR (Acute) Lactic acidosis (Acute) Severe sepsis (Acute) Elevated serum creatinine (Acute) Hypotension (Acute) ULISSES (acute kidney injury) (Acute) Subjective: Patient seen and examined. Patient is very lethargic and somnolent today. Unlike yesterday, patient is not arousable and was having deep gasping breaths. Unable to do review of systems as patient is not responsive. She was tachycardic with heart rate going up into the 140s and was very tachypneic. She was having dialysis at time of review. Creatinine is down to 2.92 today after she had dialysis. Total bilirubin however was up to 2.6 today. AST and ALT as well as ALP have all trended down significantly. Hemoglobin is down to 9.6 today. Platelets have dropped significantly to 29. She had dialysis with removal of 1.5 L yesterday. Vitals/I&O's: Vital Signs Temp Pulse Resp BP Pulse Ox 97.8 F 134 H 23 H 88/74 L 95 04/26/20 00:00 04/26/20 07:00 04/26/20 07:00 04/26/20 07:00 04/26/20 07:00 Oxygen Flow Rate (L/min) 3 Oxygen Delivery Method Nasal Cannula Weight: 203 lb 7.787 oz Body Mass Index (BMI) 31.7 Finger Stick Blood Glucose 394 Intake and Output for Last 24 Hours 04/24/20 04/25/20 04/26/20 23:59 23:59 23:59 Intake Total 1515.28 / 1515.28 2434.17 / 2438.87 560.81 / 560.81 Output Total 170 / 170 1710 / 1710 55 / 55 Balance 1345.28 / 1345.28 724.17 / 728.87 505.81 / 505.81 General: Very lethargic and somnolent, unarousable. HEENT: Atraumatic, PERRLA, EOMI, Normocephalic Oral: Moist Mucosa Neck: Supple, No JVD, Negative Carotid Bruits Lungs: - - Decreased breath sounds bibasilally. Coarse crackles in all lung rodarte bilaterally. Saturation was just 82% even when oxygen was increased to 7L Cardiovascular: Normal S1, Normal S2, No murmurs, Tachycardic Abdomen: Bowel Sounds Present, Soft, Non Tender, Non-Distended, No Hepato- splenomegaly Extremities: No clubbing, No cyanosis, - - Extremities have diminished peripheral pulses and cool to touch with mild 1+ bilateral pedal edema. Skin: No rashes, No breakdown Musculoskeletal: No Tenderness to Palpation of Joints or Extremities Neurological: Cranial nerves II-XII grossly intact, Neuro grossly intact, Motor Exam 5/5 strength throughout Psych/Mental Status: very lethargic, unarousable, somnolent Microbiology Past 72 Hours 04/19/20 11:43 Blood Culture (Wb) - Left Hand Blood Culture - Final No growth in 5 days. 04/19/20 11:20 Blood Culture (Wb) - Anticubital Right Blood Culture - Final No growth in 5 days. 04/20/20 12:30 Wound - Left Foot Gram Stain - Final 04/20/20 12:30 Wound - Left Foot Wound Culture - Final Staphylococcus aureus Staphylococcus epidermidis Enterococcus faecalis Enterobacter cloacae complex 04/20/20 12:30 Wound - Left Foot Anaerobic Culture - Final No anaerobic bacteria isolated. Laboratory Results 04/25/20 04:30: WBC REFRACTIVE SURGEON, Corrected WBC 11.0, RBC 3.81 L, Hgb 10.5 L, Hct 33.8 L, MCV 88.7, MCH 27.6, MCHC 31.1 L, RDW Std Deviation 63.4 H, RDW Coeff of Blanca 20.3 H, Plt Count 79 L, MPV 10.3, Absolute Neuts (auto) 9.8 H, Absolute Lymphs (auto) 0.33 L, Total Counted 100, Neutrophils % (Manual) 85 H, Band Neutrophils % 4, Lymphocytes % (Manual) 3 L, Monocytes % (Manual) 4, Metamyelocytes % 4 H, Myelocytes % REFRACTIVE SURGEON, Nucleated RBCs/100 WBC 5, Diff Path Review May foll, Platelet Estimate MOD DEC, Hypochromasia 1+, Stomatocytes REFRACTIVE SURGEON, Girard Cells 1+, Acanthocytes (Spur) 2+ 04/25/20 11:25: PT 23.2 H, INR 2.1 04/25/20 11:33: POC Glucose 126 H 04/25/20 17:00: POC Glucose 105 04/25/20 21:06: POC Glucose 107 04/26/20 05:35: WBC REFRACTIVE SURGEON, Corrected WBC 10.8, RBC 3.51 L, Hgb 9.6 L, Hct 31.8 L, MCV 90.6, MCH 27.4, MCHC 30.2 L, RDW Std Deviation 64.7 H, RDW Coeff of Blanca 20.8 H, Plt Count 29 L*, Neut % (Auto) Not Reportable, Absolute Neuts (auto) 9.0 H, Absolute Lymphs (auto) 0.43 L, Total Counted 100, Neutrophils % (Manual) 82 H, Band Neutrophils % 1, Lymphocytes % (Manual) 4 L, Monocytes % (Manual) 6, Metamyelocytes % 5 H, Myelocytes % 2 H, Nucleated RBCs/100 WBC 12 H, Diff Path Review December, Platelet Estimate MKD DEC, Hypochromasia 2+, Microcytosis 1+, Macrocytosis 2+, Acanthocytes (Spur) 3+ 04/26/20 05:35: Sodium 137, Potassium 4.6, Chloride 104, Carbon Dioxide 19.0 L, Anion Gap 14, BUN 71 H, Creatinine 2.92 H, Estim Creat Clear Calc 11.75, Est GFR (MDRD) Af Amer 20 L, Est GFR (MDRD) Non-Af 16 L, BUN/Creatinine Ratio 24.3 H, Glucose 112 H, Calcium 7.2 L, Total Bilirubin 2.60 H, AST 820 H, ALT 1141 H, Alkaline Phosphatase 196 H, Total Protein 5.9 L, Albumin 3.0 L, Globulin 2.9, Albumin/Globulin Ratio 1.0 04/26/20 05:35: Hep Bs Antigen Pending 04/26/20 05:54: POC Glucose 66 L 04/26/20 06:18: POC Glucose 37 L* 04/26/20 06:56: POC Glucose 101 Current Medications Acetaminophen (Tylenol) 650 mg PO Q6H PRN PRN PRN Reason: Pain Score 1-10/Temp > 100.7 F Last Admin: 04/24/20 11:03 Dose: 650 mg Documented by: Calamine/Phenol (Calmoseptine Ointment) 1 applic TOPICAL BID DONNIE; Protocol Last Admin: 04/25/20 21:08 Dose: 1 applicatio Documented by: Dextrose (D50w Syringe) 0 gm IV X1 PRN; Protocol PRN Reason: Hypoglycemia Last Admin: 04/26/20 06:24 Dose: 25 gm Documented by: Glucagon () 1 mg IM .X1 PRN PRN Reason: Hypoglycemia Guaifenesin (Robitussin) 10 ml PO Q6H PRN PRN PRN Reason: COUGH/CONGESTION Sodium Chloride () 250 mls @ 15 mls/hr IV .[id number] PRN PRN Reason: Saline Flush Last Infusion: 04/23/20 21:11 Dose: 0 mls/hr Documented by: Sodium Chloride () 250 mls @ 15 mls/hr IV .[id number] PRN PRN Reason: Additional IVPB Infusion Norepinephrine Bitartrate 8 mg (/ Sodium Chloride) 250 mls @ 9.375 mls/hr CONT INF .[id number] [facility]; Protocol Last Titration: 04/26/20 07:00 Dose: 5 mcg/min, 9.4 mls/hr Documented by: Piperacillin Sod/Tazobactam (Sod 3.375 gm/ Sodium Chloride) 50 mls @ 12.5 mls/hr IV Q12 [facility] Stop: 04/26/20 22:01 Last Infusion: 04/26/20 00:40 Dose: Infused Documented by: Phenylephrine HCl 40 mg/ (Sodium Chloride) 250 mls @ 3.75 mls/hr CONT INF .[id number] [facility]; Protocol Last Admin: 04/26/20 05:49 Dose: 160 mcg/min, 60 mls/hr Documented by: Amiodarone HCl 360 mg/ (Dextrose) 200 mls @ 16.667 mls/hr CONT INF .Q12H DONNIE Last Admin: 04/25/20 21:50 Dose: 0.5 mg/min, 16.7 mls/hr Documented by: Insulin Human Lispro (Humalog Kwikpen (Bkc)) 0 unit SC ACHS [facility]; Protocol Last Admin: 04/26/20 06:29 Dose: Not Given Documented by: Menthol (Bengay Vanishing Scent) 1 applic TOPICAL 4X/DAY PRN PRN PRN Reason: knee pain Last Admin: 04/23/20 06:07 Dose: 1 applic Documented by: Nutritional Formula (Lactose Free) (Glucerna Shake) 120 ml PO 4X/DAY [facility] Last Admin: 04/25/20 21:02 Dose: Not Given Documented by: Nystatin (Mycostatin Powder) 1 applic TOPICAL BID [facility]; Protocol Last Admin: 04/25/20 21:02 Dose: Not Given Documented by: Ondansetron HCl (Zofran) 4 mg IV Q8H PRN PRN PRN Reason: NAUSEA/VOMITING Senna/Docusate Sodium (Senokot-S, Jessie-Colace) 2 tablet PO BID [facility] Last Admin: 04/25/20 21:02 Dose: Not Given Documented by: Sodium Chloride () 10 - 40 ml IV UD PRN PRN Reason: SALINE FLUSH Last Admin: 04/26/20 05:59 Dose: 20 ml Documented by: STROKE Vital Signs/Narrative: Vital Signs Pulse Resp BP Pulse Ox 04/26/20 07:00 134 H 23 H 88/74 L 95 04/26/20 06:00 128 H 23 H 90/55 L 98 04/26/20 05:00 130 H 20 H 87/70 L 95 04/26/20 04:00 130 H 24 H 99/64 98 Medical Necessity - Tobacco Use Smoking Status: Never smoker Assessment/Plan All Active Problems (Last Reviewed 01/09/20 @ 11:16 by Sandy Hopson PA, PA) Diabetic infection of left foot (Acute) Paroxysmal atrial fibrillation with RVR (Acute) Lactic acidosis (Acute) Severe sepsis (Acute) Elevated serum creatinine (Acute) Hypotension (Acute) ULISSES (acute kidney injury) (Acute) Bronchitis (Acute) Ulcer of right lower extremity with fat layer exposed (Resolved) Ulcer of left lower extremity with fat layer exposed (Resolved) Chronic ulcer of left foot with fat layer exposed (Resolved) Chronic ulcer of right great toe with fat layer exposed (Resolved) Ulcer of left lower extremity with fat layer exposed (Resolved) Ulcer of right lower extremity with fat layer exposed (Resolved) Venous ulcers of both lower extremities (Resolved) Hyponatremia (Resolved) # Severe sepsis due to diabetic foot ulcer * Still remains tachycardic and tachypneic. * Wound culture grew Staphylococcus aureus and epidermidis as well as Enterococcus faecalis and Enterobacter [place]. * MRI showed no osteomyelitis but arterial study showed very poor blood flow to her lower extremities. * Podiatry on board-no plans for foot or ankle surgery. To proceed with bracing and, walker. * #Acute liver failure * Liver enzymes are now trending down; thought to be due to right-sided ventricular failure. Ultrasound of the liver did show diffuse gallbladder wall thickening without pericholecystic fluid. * liver enzymes still trending downards * # acute hypoxic respiratory failure due to CHF exacerbation and fluid overload from renal failure * Patient is very hypoxic today and still very short of breath. She was barely responsive. * Chest x-ray done yesterday shows small right pleural effusion with chronic fluid overload. * Stat ABG done today showed pH of 7.16 with PCO2 of 72.6 and PO2 of 50. * Patient immediately started on BiPAP. Based on how she responds, patient may need to be intubated down the line if she remains barely responsive. * #Elevated INR: INR is pending today. #A. fib with RVR * Heart rate was markedly elevated today in the 140s. * 2D echo done during this admission shows EF of 30% with severely dilated right ventricle and RVSP of 33 mmHg. * Cardiology on board. * on amiodarone. We will give a dose of IV Cardizem bolus and monitor. She may need Cardizem drip if heart rate remains poorly controlled. * #Hyperkalemia: Resolved. Potassium is down 4.6 today. #acute on Chronic heart failure with reduced ejection fraction: * Lisinopril on hold on account of renal dysfunction. Currently on Lasix drip. * In cumulative positive balance by approximately 15 L since admission * Dialysis yesterday with removal of 1.5 L of fluid. Chest x-ray yesterday showed chronic fluid overload. * Having dialysis today * Cardiology on board. * #Acute renal failure * Had dialysis with removal of 1.5 L of fluid yesterday. Creatinine is down to 2.9 today. * Nephrology on board. Having dialysis today. * #Thrombocytopenia * Platelets are down to 29 today. Likely due to severe sepsis. She received heparin with dialysis but has not been on any other heparin. Eliquis was held on admission on account of supratherapeutic INR. * Will continue monitoring platelets. * Consult hematology. 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 Insulin sliding scale. Accu-Cheks AC at bedtime. * DVT prophylaxis: Not indicated as she has supratherapeutic INR. Prognosis: patient is critically ill. Prognosis is guarded Inpatient E&M: [id number] [facility] Hosp L3
--- NOTE | 2020-04-26 09:23 | PN.CARD_ITS ---
Subjectve: Patient seen and evaluated. Currently undergoing dialysis. Objective: Vital Signs Temp Pulse Resp BP Pulse Ox 97.8 F 125 H 23 H 88/74 L 95 04/26/20 00:00 04/26/20 08:00 04/26/20 07:00 04/26/20 07:00 04/26/20 07:00 Oxygen Flow Rate (L/min) 3 Oxygen Delivery Method Nasal Cannula Weight: 203 lb 7.787 oz Body Mass Index (BMI) 31.7 Finger Stick Blood Glucose 394 Intake and Output for Last 24 Hours 04/24/20 04/25/20 04/26/20 23:59 23:59 23:59 Intake Total 1515.28 / 1515.28 2434.17 / 2438.87 560.81 / 560.81 Output Total 170 / 170 1710 / 1710 55 / 55 Balance 1345.28 / 1345.28 724.17 / 728.87 505.81 / 505.81 General: Awake, Alert, Oriented x 3 HEENT: PERRL, EOMI, Sclera Non Icteric Neck: Supple, Good ROM, No Lymph Node Enlargement Lungs: Clear to auscultation Cardiovascular: Irregular Rhythm, Normal S1, Normal S2, No Murmurs, No Rubs, No Gallops Vascular: No Carotid Bruits, Normal Femoral Pulses, Normal Radial Pulses, Normal Dorsalis Pedal Pulse, Normal Posterior Tibial Pulses Abdomen: Bowel Sounds Present, Soft, Non Tender, No HSM, No Organomegaly Extremities: No Cyanosis, No Clubbing, No edema Lymphatic: No Lymph Node Enlargement Neurological: No Focal Motor or Sensory Deficit 04/25/20 04:30: WBC FIRE SUPPORT SPECIALIST, Corrected WBC 11.0, RBC 3.81 L, Hgb 10.5 L, Hct 33.8 L, MCV 88.7, MCH 27.6, MCHC 31.1 L, Plt Count 79 L, MPV 10.3, Absolute Neuts (auto) 9.8 H, Total Counted 100, Neutrophils % (Manual) 85 H, Band Neutrophils % 4, Lymphocytes % (Manual) 3 L, Monocytes % (Manual) 4, Metamyelocytes % 4 H, Myelocytes % FIRE SUPPORT SPECIALIST 04/25/20 11:25: PT 23.2 H, INR 2.1 04/26/20 05:35: WBC FIRE SUPPORT SPECIALIST, Corrected WBC 10.8, RBC 3.51 L, Hgb 9.6 L, Hct 31.8 L, MCV 90.6, MCH 27.4, MCHC 30.2 L, Plt Count 29 L*, Neut % (Auto) Not Reportable, Absolute Neuts (auto) 9.0 H, Total Counted 100, Neutrophils % (Manual) 82 H, Band Neutrophils % 1, Lymphocytes % (Manual) 4 L, Monocytes % (Manual) 6, Me tamyelocytes % 5 H, Myelocytes % 2 H 04/26/20 05:35: Sodium 137, Potassium 4.6, Chloride 104, Carbon Dioxide 19.0 L, Anion Gap 14, BUN 71 H, Creatinine 2.92 H, Est GFR (MDRD) Af Amer 20 L, Est GFR (MDRD) Non-Af 16 L, BUN/Creatinine Ratio 24.3 H, Glucose 112 H, Calcium 7.2 L, Total Bilirubin 2.60 H Rhythm: EKG: ECHO: Stress Test: Cardiac Cath: PCI: CT Surgery: Holter monitor: EPS: PPM: CXR: Chest CT Scan: Medical Necessity - Tobacco Use Smoking Status: Never smoker Assessment/Plan 1. Atrial fibrillation The patient has a history of atrial fibrillation. She is currently on intravenous amiodarone while she is undergoing dialysis for rate control. 2. 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 3. CHF/left ventricular systolic dysfunction Based upon her echocardiographic findings her left ventricular systolic function is depressed/her LVEF is depressed. The etiology is unclear as to whether this is related to multiple factors including her atrial dysrhythmia with rapid ventricular response and/or her underlying sepsis syndrome. She is undergoing dialysis and an attempt to be made to make a negatively fluid balanced 4. Hyperlipidemia She will continue risk factor modification medical therapy as deemed appropriate. 5. Hypertension Her blood pressure is low at this time. This may be secondary to her sepsis syndrome. Her overall prognosis is rather guarded at this particular time.
[2020-04-26 09:26] LABS: Blood Gas Specimen Type ART
[2020-04-26 09:27] LABS: Allen Test POS; O2 Delivery Device Nasal Can; SITE R RADIAL
[2020-04-26 09:28] LABS: Time Given 907
[2020-04-26 09:29] LABS: Base Excess -3 mmol/L (-2 to +2); Bicarbonate 26.1 mmol/L (22-26); PO2 50 mmHG (75-100); pCO2 72.6 mmHg (35-45); pH 7.16 (7.35-7.45)
[2020-04-26 09:30] LABS: SO2 73 % (95-99); Total Carbon Dioxide 28 mmol/L
[2020-04-26] MEDS: dilTIAZem 25 MG/5 ML Vial IV BOLUS (09:38)
[2020-04-26] MEDS: Amiodarone 360 MG in Dextrose 5% Viaflo Bag 192.8 ML 16.7 MG CONT INF ×2 (09:53→21:58)
[2020-04-26 10:22] LABS: Blood Gas Specimen Type ART
[2020-04-26 10:23] LABS: Allen Test POS; EPAP 6; FI02 100; IPAP 16; O2 Delivery Device Bi Pap; RR 12; SITE R RADIAL
[2020-04-26 10:24] LABS: Base Excess -4 mmol/L (-2 to +2); PO2 52 mmHG (75-100); SO2 76 % (95-99); Time Given 1002; Total Carbon Dioxide 26 mmol/L; pCO2 64.3 mmHg (35-45); pH 7.18 (7.35-7.45)
--- NOTE | 2020-04-26 10:42 | CPS ---
This RT notified of critical ABG results on 04/26/2020 at 0905. Verbal order given to start BIPAP This RT also notified of another critical ABG result on 04/26/2020 at 1002. JYaritza LABORATORY ANIMAL CARE VETERINARIAN
[2020-04-26] MEDS: Heparin 10,000 UNITS/10 ML Vial IV (11:02)
[2020-04-26] MEDS: Nystatin Powder 15gm Bottle 1 APPLIC TOPICAL ×2 (11:03→20:54)
[2020-04-26] MEDS: Menthol/Lanolin/Calamine/Znox 113 GM Tube 1 APPLIC TOPICAL ×2 (11:03→20:55)
--- NOTE | 2020-04-26 11:20 | DIALYSIS ---
HD x 3 hours complete. Tolerated tx fairly well. Ran on 2k bath. UF of 2000ml. Used right neck dialysis catheter. Catheter closed with heparin per fill volume. Caps placed. Dressing is intact. Report was given to ROSARIO Valderrama.
[2020-04-26 11:46] LABS: Bedside Glucose 113 mg/dL (70-110)
[2020-04-26 14:06] LABS: Allen Test POS; Blood Gas Specimen Type ART; O2 Delivery Device BiPAP; SITE L RADIAL
[2020-04-26 14:07] LABS: EPAP 6; FI02 100; IPAP 16; Time Given 1300; pCO2 61.6 mmHg (35-45)
[2020-04-26 14:08] LABS: Base Excess -4 mmol/L (-2 to +2); Bicarbonate 24.1 mmol/L (22-26); PO2 203 mmHG (75-100); SO2 100 % (95-99)
--- NOTE | 2020-04-26 15:20 | NURSING ---
Addendum entered by Jannie Jimenez 04/26/20 15:50: pt with decreasing blood pressure, non responsive, increased duskiness to bilateral feet and hands. Sister, Akanksha notified of change and friend Haven notified. Both made aware that they could come visit patient at any time Original Note: Pt
--- NOTE | 2020-04-26 16:20 | CPS ---
This RT gave Critical blood gas results of ph 7.20 to .
--- NOTE | 2020-04-26 16:23 | CPS ---
This RT gave critical blood gas results of Ph 7.[address] Escobar.
[2020-04-26 16:44] LABS: Glucose 151 mg/dL (74-106)
[2020-04-26 17:53] LABS: Total Carbon Dioxide 26 mmol/L
[2020-04-26] MEDS: Phenylephrine 40 mg/250 mL 0.9% NS 67.5 MG CONT INF ×2 (18:23→21:58)
[2020-04-27] VITALS (22 sets, daily range): BP systolic 75–131; BP diastolic 34–88; PULSE 125–166; RESP 12–32; TEMP 36.3–36.7; O2SAT 96–100
[2020-04-27] MEDS: Digoxin 250 MCG/ML Ampul 500 MCG IV (00:07)
[2020-04-27] MEDS: Phenylephrine 40 mg/250 mL 0.9% NS 67.5 MG CONT INF ×3 (01:51→09:00)
[2020-04-27 05:31] LABS: Differential Indicated MANUAL DIFF; Hematocrit 31.5 % (37-47); Mean Corp Hgb Conc 31.7 g/dL (32-36); Mean Corpuscular Hgb 27.8 pg (27.0-32.0); Mean Corpuscular Volume 87.5 fL (81-99); POSITIVE COUNT YES; POSITIVE DIFFERENTIAL YES; POSITIVE MORPHOLOGY YES; RBC Distribution Width CV 20.7 % (11.6-14.6); RBC Distribution Width SD 62.4 fl (35.1-43.9)
[2020-04-27 05:32] LABS: Platelet Count 31 K/mm3 (150-450)
[2020-04-27 05:46] LABS: ALB/GLOB Ratio 1.1 RATIO (0.9-2.4); AST(SGOT) 780 U/L (15-37); Alanine Aminotransfer ALT/SGPT 992 U/L (13-56); Albumin, Serum 2.7 g/dL (3.2-5.0); Alkaline Phosphatase 182 U/L (45-117); Anion Gap 13 (5-15); BUN 55 mg/dL (7-18); BUN/Creat Ratio 21.3 RATIO (10-20); Calcium,Total 6.9 mg/dL (8.5-10.1); Chloride 103 mmol/L (98-107); Creatinine, Serum 2.58 mg/dL (0.55-1.02); EST Glomerular Filtration Rate 19 mL/min (>60); Est Glom Filt Rate - Afr Amer 23 mL/min (>60); Globulin 2.5 g/dL (2.2-4.2); Glucose 190 mg/dL (74-106); Potassium 4.1 mmol/L (3.5-5.1); Protein, Total 5.2 g/dL (6.4-8.2); Sodium Level 138 mmol/L (136-145)
[2020-04-27 05:59] LABS: Lymphocyte 7 % (19-41); Metamyelocyte 1 % (0-1); Monocyte 4 % (0-10); Neutrophil-Band 1 % (0-5); Neutrophil-Segmented 88 % (47-70); Total Cells Counted 100 (MANUAL DIFF)
[2020-04-27 06:00] LABS: Nucleated Red Bld Cells,Manual 16 % (0-5)
[2020-04-27 06:01] LABS: Absolute Neutrophil Count 8.8 X10^3/uL (2.0-7.7)
[2020-04-27 06:02] LABS: Anisocytosis 1+; Platelet Estimate MKD DEC (ADEQ)
--- NOTE | 2020-04-27 06:14 | PN_ITS ---
Subjective: The patient was seen and examined at the bedside this morning. Events from the last 24 hours have been reviewed. Yesterday morning, the patient was noted to have decreased mentation when compared to previous days. Subsequent work-up revealed acute CO2 retention with PCO2 in the 60s. The patient was placed on BiPAP therapy with only small improvement in her acid-base status. However, after a discussion with the patient's family, the decision was made not to pursue any additional aggressive measures, outside of the use of noninvasive positive pressure ventilatory support. The decision was made at that time to transition her from full code to DNR CCA without intubation. The patient remains on both Levophed and Paras-Synephrine in an attempt to maintain hemodynamic stability. Her family is currently in route from [place] to visit her. Objective: The patient's most recent lab work, culture data and imaging studies have all been personally reviewed. Surface echocardiogram dated April 22, 2020 revealed normal LV size with an ejection fraction of 30%. The RV was severely dilated with mild to moderate global RV systolic dysfunction. Right ventricular systolic pressure was estimated to be 33 mmHg. General: Lethargic HEENT: Atraumatic, Normocephalic Oral: Dry Mucosa, - - BiPAP mask in place Neck: Supple, No Nodes, Trachea Midline Lungs: Diminished, Rhonchi, Tachypneic Cardiovascular: Normal S1, Normal S2, Irregular Rate, Tachycardic Abdomen: Bowel Sounds Present, Soft, Non Tender, Obese Extremities: No clubbing, No cyanosis, Edema Skin: - - No significant change from previous Musculoskeletal: No Muscle Wasting Lymphatic: No Cervical, Supraclavicular, or Inguinal Adenopathy Neurological: - - No focal deficits. Remains minimally responsive to verbal stimulation. Vital Signs Temp Pulse Resp BP Pulse Ox 98.1 F 140 H 20 H 90/62 100 04/27/20 06:00 04/27/20 06:00 04/27/20 06:00 04/27/20 06:00 04/27/20 06:00 Oxygen Flow Rate (L/min) 7 Oxygen Delivery Method Bi-pap Weight: 211 lb 13.828 oz Body Mass Index (BMI) 31.7 Finger Stick Blood Glucose 394 Intake and Output for Last 24 Hours 04/25/20 04/26/20 04/27/20 23:59 23:59 23:59 Intake Total 2434.17 / 2438.87 2553.16 / 2701.52 985.58 / 985.58 Output Total 1710 / 1710 55 / 55 8 / 8 Balance 724.17 / 728.87 2498.16 / 2646.52 977.58 / 977.58 Labs (Last 48 Hours) 04/25/20 04/25/20 04/25/20 04:30 06:48 11:25 WBC [employer] Corrected WBC 11.0 RBC 3.81 L Hgb 10.5 L Hct 33.8 L MCV 88.7 MCH 27.6 MCHC 31.1 L RDW Std Deviation 63.4 H RDW Coeff of Blanca 20.3 H Plt Count 79 L MPV 10.3 Neut % (Auto) Absolute Neuts (auto) 9.8 H Absolute Lymphs (auto) 0.33 L Total Counted 100 Neutrophils % (Manual) 85 H Band Neutrophils % 4 Lymphocytes % (Manual) 3 L Monocytes % (Manual) 4 Metamyelocytes % 4 H Myelocytes % [employer] Nucleated RBCs/100 WBC 5 Diff Path Review May foll Platelet Estimate MOD DEC Hypochromasia 1+ Anisocytosis Microcytosis Macrocytosis Stomatocytes [employer] [place] Cells 1+ Acanthocytes (Spur) 2+ PT 23.2 H INR 2.1 Specimen Type Sample Site pH Bicarbonate Actual Total CO2 Base Excess O2 Saturation O2 % ABG pCO2 ABG pO2 Shashank Test Respiration Rate O2 Delivery Device Liter Flow Minute Volume Vent Mode Inspiratory Time Expiratory Time Tidal Volume POC PEEP POC Pressure Suppt Pressure Control Pressure High Pressure Low Time High Time Low EPAP IPAP Blood Gas Comments Blood Gas Notified Whom Blood Gas Notified Time Sodium Potassium Chloride Carbon Dioxide Anion Gap BUN Creatinine Estim Creat Clear Calc Est GFR (MDRD) Af Amer Est GFR (MDRD) Non-Af BUN/Creatinine Ratio Glucose Calcium Total Bilirubin AST ALT Alkaline Phosphatase Ammonia Troponin I Total Protein Albumin Globulin Albumin/Globulin Ratio Hep Bs Antigen POC Glucose 96 04/25/20 04/25/20 04/25/20 11:33 17:00 21:06 WBC Corrected WBC RBC Hgb Hct MCV MCH MCHC RDW Std Deviation RDW Coeff of Blanca Plt Count MPV Neut % (Auto) Absolute Neuts (auto) Absolute Lymphs (auto) Total Counted Neutrophils % (Manual) Band Neutrophils % Lymphocytes % (Manual) Monocytes % (Manual) Metamyelocytes % Myelocytes % Nucleated RBCs/100 WBC Diff Path Review Platelet Estimate Hypochromasia Anisocytosis Microcytosis Macrocytosis Stomatocytes Helder Cells Acanthocytes (Spur) PT INR Specimen Type Sample Site pH Bicarbonate Actual Total CO2 Base Excess O2 Saturation O2 % ABG pCO2 ABG pO2 Shashank Test Respiration Rate O2 Delivery Device Liter Flow Minute Volume Vent Mode Inspiratory Time Expiratory Time Tidal Volume POC PEEP POC Pressure Suppt Pressure Control Pressure High Pressure Low Time High Time Low EPAP IPAP Blood Gas Comments Blood Gas Notified Whom Blood Gas Notified Time Sodium Potassium Chloride Carbon Dioxide Anion Gap BUN Creatinine Estim Creat Clear Calc Est GFR (MDRD) Af Amer Est GFR (MDRD) Non-Af BUN/Creatinine Ratio Glucose Calcium Total Bilirubin AST ALT Alkaline Phosphatase Ammonia Troponin I Total Protein Albumin Globulin Albumin/Globulin Ratio Hep Bs Antigen POC Glucose 126 H 105 107 04/26/20 04/26/20 04/26/20 05:35 05:35 05:35 WBC [employer] Corrected WBC 10.8 RBC 3.51 L Hgb 9.6 L Hct 31.8 L MCV 90.6 MCH 27.4 MCHC 30.2 L RDW Std Deviation 64.7 H RDW Coeff of Blanca 20.8 H Plt Count 29 L* MPV Neut % (Auto) Not Reportable Absolute Neuts (auto) 9.0 H Absolute Lymphs (auto) 0.43 L Total Counted 100 Neutrophils % (Manual) 82 H Band Neutrophils % 1 Lymphocytes % (Manual) 4 L Monocytes % (Manual) 6 Metamyelocytes % 5 H Myelocytes % 2 H Nucleated RBCs/100 WBC 12 H Diff Path Review May foll Platelet Estimate MKD DEC Hypochromasia 2+ Anisocytosis Microcytosis 1+ Macrocytosis 2+ Stomatocytes [place] Cells Acanthocytes (Spur) 3+ PT INR Specimen Type Sample Site pH Bicarbonate Actual Total CO2 Base Excess O2 Saturation O2 % ABG pCO2 ABG pO2 Shashank Test Respiration Rate O2 Delivery Device Liter Flow Minute Volume Vent Mode Inspiratory Time Expiratory Time Tidal Volume POC PEEP POC Pressure Suppt Pressure Control Pressure High Pressure Low Time High Time Low EPAP IPAP Blood Gas Comments Blood Gas Notified Whom Blood Gas Notified Time Sodium 137 Potassium 4.6 Chloride 104 Carbon Dioxide 19.0 L Anion Gap 14 BUN 71 H Creatinine 2.92 H Estim Creat Clear Calc 11.75 Est GFR (MDRD) Af Amer 20 L Est GFR (MDRD) Non-Af 16 L BUN/Creatinine Ratio 24.3 H Glucose 112 H Calcium 7.2 L Total Bilirubin 2.60 H AST 820 H ALT 1141 H Alkaline Phosphatase 196 H Ammonia Troponin I Total Protein 5.9 L Albumin 3.0 L Globulin 2.9 Albumin/Globulin Ratio 1.0 Hep Bs Antigen Pending POC Glucose 04/26/20 04/26/20 04/26/20 05:54 06:18 06:56 WBC Corrected WBC RBC Hgb Hct MCV MCH MCHC RDW Std Deviation RDW Coeff of Blanca Plt Count MPV Neut % (Auto) Absolute Neuts (auto) Absolute Lymphs (auto) Total Counted Neutrophils % (Manual) Band Neutrophils % Lymphocytes % (Manual) Monocytes % (Manual) Metamyelocytes % Myelocytes % Nucleated RBCs/100 WBC Diff Path Review Platelet Estimate Hypochromasia Anisocytosis Microcytosis Macrocytosis Stomatocytes [place] Cells Acanthocytes (Spur) PT INR Specimen Type Sample Site pH Bicarbonate Actual Total CO2 Base Excess O2 Saturation O2 % ABG pCO2 ABG pO2 Shashank Test Respiration Rate O2 Delivery Device Liter Flow Minute Volume Vent Mode Inspiratory Time Expiratory Time Tidal Volume POC PEEP POC Pressure Suppt Pressure Control Pressure High Pressure Low Time High Time Low EPAP IPAP Blood Gas Comments Blood Gas Notified Whom Blood Gas Notified Time Sodium Potassium Chloride Carbon Dioxide Anion Gap BUN Creatinine Estim Creat Clear Calc Est GFR (MDRD) Af Amer Est GFR (MDRD) Non-Af BUN/Creatinine Ratio Glucose Calcium Total Bilirubin AST ALT Alkaline Phosphatase Ammonia Troponin I Total Protein Albumin Globulin Albumin/Globulin Ratio Hep Bs Antigen POC Glucose 66 L 37 L* 101 04/26/20 04/26/20 04/26/20 09:05 09:10 09:10 WBC Corrected WBC RBC Hgb Hct MCV MCH MCHC RDW Std Deviation RDW Coeff of Blanca Plt Count MPV Neut % (Auto) Absolute Neuts (auto) Absolute Lymphs (auto) Total Counted Neutrophils % (Manual) Band Neutrophils % Lymphocytes % (Manual) Monocytes % (Manual) Metamyelocytes % Myelocytes % Nucleated RBCs/100 WBC Diff Path Review Platelet Estimate Hypochromasia Anisocytosis Microcytosis Macrocytosis Stomatocytes [place] Cells Acanthocytes (Spur) PT INR Specimen Type ART Sample Site R RADIAL pH 7.16 L* Bicarbonate Actual 26.1 H Total CO2 28 Base Excess -3 L O2 Saturation 73 L O2 % ABG pCO2 72.6 H* ABG pO2 50 L Shashank Test POS Respiration Rate O2 Delivery Device Nasal Can Liter Flow 7.0 Minute Volume Vent Mode Inspiratory Time Expiratory Time Tidal Volume POC PEEP POC Pressure Suppt Pressure Control Pressure High Pressure Low Time High Time Low EPAP IPAP Blood Gas Comments Blood Gas Notified Whom ICU MD Blood Gas Notified Time 907 Sodium Potassium Chloride Carbon Dioxide Anion Gap BUN Creatinine Estim Creat Clear Calc Est GFR (MDRD) Af Amer Est GFR (MDRD) Non-Af BUN/Creatinine Ratio Glucose Calcium Total Bilirubin AST ALT Alkaline Phosphatase Ammonia 66.0 H Troponin I 0.187 H Total Protein Albumin Globulin Albumin/Globulin Ratio Hep Bs Antigen POC Glucose 04/26/20 04/26/20 04/26/20 10:02 11:28 13:00 WBC Corrected WBC RBC Hgb Hct MCV MCH MCHC RDW Std Deviation RDW Coeff of Blanca Plt Count MPV Neut % (Auto) Absolute Neuts (auto) Absolute Lymphs (auto) Total Counted Neutrophils % (Manual) Band Neutrophils % Lymphocytes % (Manual) Monocytes % (Manual) Metamyelocytes % Myelocytes % Nucleated RBCs/100 WBC Diff Path Review Platelet Estimate Hypochromasia Anisocytosis Microcytosis Macrocytosis Stomatocytes [place] Cells Acanthocytes (Spur) PT INR Specimen Type ART ART Sample Site R RADIAL L RADIAL pH 7.18 L* 7.20 L Bicarbonate Actual 24.0 24.1 Total CO2 26 26 Base Excess -4 L -4 L O2 Saturation 76 L 100 H O2 % 100 100 ABG pCO2 64.3 H 61.6 H ABG pO2 52 L 203 H Shashank Test POS POS Respiration Rate 12 O2 Delivery Device Bi Pap BiPAP Liter Flow Minute Volume Vent Mode Inspiratory Time Expiratory Time Tidal Volume POC PEEP POC Pressure Suppt Pressure Control Pressure High Pressure Low Time High Time Low EPAP 6 6 IPAP 16 16 Blood Gas Comments Blood Gas Notified Whom ICU MD ICU MD Blood Gas Notified Time 1002 1300 Sodium Potassium Chloride Carbon Dioxide Anion Gap BUN Creatinine Estim Creat Clear Calc Est GFR (MDRD) Af Amer Est GFR (MDRD) Non-Af BUN/Creatinine Ratio Glucose Calcium Total Bilirubin AST ALT Alkaline Phosphatase Ammonia Troponin I Total Protein Albumin Globulin Albumin/Globulin Ratio Hep Bs Antigen POC Glucose 113 H 04/26/20 04/26/20 04/27/20 13:00 16:20 05:20 WBC [employer] Corrected WBC 10.0 RBC 3.60 L Hgb 10.0 L Hct 31.5 L MCV 87.5 MCH 27.8 MCHC 31.7 L RDW Std Deviation 62.4 H RDW Coeff of Blanca 20.7 H Plt Count 31 L* MPV 0.0 L Neut % (Auto) Not Reportable Absolute Neuts (auto) 8.8 H Absolute Lymphs (auto) 0.70 L Total Counted 100 Neutrophils % (Manual) 88 H Band Neutrophils % 1 Lymphocytes % (Manual) 7 L Monocytes % (Manual) 4 Metamyelocytes % 1 Myelocytes % Nucleated RBCs/100 WBC 16 H Diff Path Review May foll Platelet Estimate MKD DEC Hypochromasia Anisocytosis 1+ Microcytosis Macrocytosis Stomatocytes Helder Cells Acanthocytes (Spur) PT INR Specimen Type Cancelled Sample Site Cancelled pH Cancelled Bicarbonate Actual Cancelled Total CO2 Cancelled Base Excess Cancelled O2 Saturation Cancelled O2 % Cancelled ABG pCO2 Cancelled ABG pO2 Cancelled Shashank Test Cancelled Respiration Rate Cancelled O2 Delivery Device Cancelled Liter Flow Cancelled Minute Volume Cancelled Vent Mode Cancelled Inspiratory Time Cancelled Expiratory Time Cancelled Tidal Volume Cancelled POC PEEP Cancelled POC Pressure Suppt Cancelled Pressure Control Cancelled Pressure High Cancelled Pressure Low Cancelled Time High Cancelled Time Low Cancelled EPAP Cancelled IPAP Cancelled Blood Gas Comments Cancelled Blood Gas Notified Whom Cancelled Blood Gas Notified Time Cancelled Sodium Potassium Chloride Carbon Dioxide Anion Gap BUN Creatinine Estim Creat Clear Calc Est GFR (MDRD) Af Amer Est GFR (MDRD) Non-Af BUN/Creatinine Ratio Glucose 151 H Calcium Total Bilirubin AST ALT Alkaline Phosphatase Ammonia Troponin I Total Protein Albumin Globulin Albumin/Globulin Ratio Hep Bs Antigen POC Glucose 04/27/20 05:20 WBC Corrected WBC RBC Hgb Hct MCV MCH MCHC RDW Std Deviation RDW Coeff of Blanca Plt Count MPV Neut % (Auto) Absolute Neuts (auto) Absolute Lymphs (auto) Total Counted Neutrophils % (Manual) Band Neutrophils % Lymphocytes % (Manual) Monocytes % (Manual) Metamyelocytes % Myelocytes % Nucleated RBCs/100 WBC Diff Path Review Platelet Estimate Hypochromasia Anisocytosis Microcytosis Macrocytosis Stomatocytes [place] Cells Acanthocytes (Spur) PT INR Specimen Type Sample Site pH Bicarbonate Actual Total CO2 Base Excess O2 Saturation O2 % ABG pCO2 ABG pO2 Shashank Test Respiration Rate O2 Delivery Device Liter Flow Minute Volume Vent Mode Inspiratory Time Expiratory Time Tidal Volume POC PEEP POC Pressure Suppt Pressure Control Pressure High Pressure Low Time High Time Low EPAP IPAP Blood Gas Comments Blood Gas Notified Whom Blood Gas Notified Time Sodium 138 Potassium 4.1 Chloride 103 Carbon Dioxide 22.0 Anion Gap 13 BUN 55 H Creatinine 2.58 H Estim Creat Clear Calc 13.30 Est GFR (MDRD) Af Amer 23 L Est GFR (MDRD) Non-Af 19 L BUN/Creatinine Ratio 21.3 H Glucose 190 H Calcium 6.9 L Total Bilirubin 3.40 H AST 780 H ALT 992 H Alkaline Phosphatase 182 H Ammonia Troponin I Total Protein 5.2 L Albumin 2.7 L Globulin 2.5 Albumin/Globulin Ratio 1.1 Hep Bs Antigen POC Glucose Clinical Impression(s) from Imaging Studies Foot X-Ray 04/19/20 09:46 IMPRESSION: Diffuse soft tissue swelling as well as osteopenia. Electronically Signed: Nestor Noonan at 11:04 EDT , Service support , Chest X-Ray 04/19/20 10:25 IMPRESSION: Blunting of the right costophrenic angle. This is unchanged. Electronically Signed: Nestor Noonan at 11:06 EDT , Service support , Lower Extremity MRI 04/20/20 12:38 IMPRESSION: 1. Mild to moderate Charcot arthropathy/osteoarthritis. No evidence of osteomyelitis or a soft tissue abscess. Electronically Signed: Pato Clarke MD at 19:23 EDT , Service support , Chest X-Ray 04/22/20 00:57 IMPRESSION: Probable new small right pleural effusion. New patchy bibasilar densities compatible with subsegmental atelectasis or pneumonia. Electronically Signed: Guicho Smith MD at 2:32 EDT , Service support , Liver Ultrasound 04/22/20 08:24 IMPRESSION: Small amount of perihepatic fluid. Diffuse gallbladder wall thickening without pericholecystic fluid. Electronically Signed: Nestor Saran, at 12:42 EDT , Service support , Chest X-Ray 04/22/20 13:45 IMPRESSION: The tip of the left PICC line catheter is at the junction of the superior vena cava and right atrium. Since prior study, has been improved aeration of both lungs. Electronically Signed: Nestor Saran, at 14:07 EDT , Service support , Chest X-Ray 04/25/20 14:02 IMPRESSION: 1. Right jugular dialysis catheter extends to the cavoatrial junction. 2. Small right pleural effusion. 3. Chronic CHF/fluid overload. Electronically Signed: Huang Lakhani MD ([place]) at 15:04 EDT , Service support , Medical Necessity - Tobacco Use Smoking Status: Never smoker Assessment/Plan All Active Problems (Last Reviewed 01/09/20 @ 11:16 by Sandy Hopson PA, PA) Diabetic infection of left foot (Acute) Paroxysmal atrial fibrillation with RVR (Acute) Lactic acidosis (Acute) Severe sepsis (Acute) Elevated serum creatinine (Acute) Hypotension (Acute) ULISSES (acute kidney injury) (Acute) Bronchitis (Acute) Ulcer of right lower extremity with fat layer exposed (Resolved) Ulcer of left lower extremity with fat layer exposed (Resolved) Chronic ulcer of left foot with fat layer exposed (Resolved) Chronic ulcer of right great toe with fat layer exposed (Resolved) Ulcer of left lower extremity with fat layer exposed (Resolved) Ulcer of right lower extremity with fat layer exposed (Resolved) Venous ulcers of both lower extremities (Resolved) Hyponatremia (Resolved) RECOMMENDATIONS: 1. Continue BiPAP therapy as tolerated. 2. Resume antimicrobials. 3. Start stress dose steroids. 4. Continue rate/rhythm control strategy per cardiology recommendations. 5. Continue additional volume optimization via hemodialysis per nephrology recommendations. 6. Goals of care discussion with family members later today. IMPRESSIONS: 1. Septic shock secondary to diabetic foot ulcer Continue current supportive measures, including antimicrobial therapy and vasopressor support to maintain a mean arterial pressure at or above 65 mmHg. 2. Acute combined respiratory failure The patient was less responsive this morning and subsequent arterial blood gas revealed evidence of acute combined respiratory failure, which is likely multifactorial in etiology. The patient does have underlying atrial fibrillation and remains in a rapid ventricular rate and is currently in a state of decompensated heart failure. Attempts at volume optimization have been limited by the patient's vasopressor requirement. Continue hemodialysis as tolerated. 3. Atrial fibrillation with RVR/decompensated heart failure with reduced ejection fraction Continue medical management per cardiology recommendations. Appreciate input regarding atrial fibrillation management. 4. Encephalopathy The patient appeared to be less responsive this morning. Therefore, stat arterial blood gas was obtained and revealed acute CO2 retention. The patient will be continued on BiPAP therapy as tolerated. Continue to hold all potential sedating medications. 5. Acute hepatitis Exact etiology is unclear. However, there has been slow overall improvement in the patient's transaminase levels. 6. Acute kidney injury Concern for possible hepatorenal syndrome and ischemic ATN. Plan to continue current supportive measures including hemodialysis per nephrology recommendations. 7. Thrombocytopenia Likely secondary to #1. Plan to continue to monitor. No overt signs of blood loss at the current time. 8. Diabetes mellitus/peripheral vascular disease/pulmonary hypertension/hypertension/hyperlipidemia/advanced age/obesity Complicates care, management, recovery and prognosis. Continue sliding scale insulin coverage for now. UPDATE: I met with the patient's family this afternoon at the bedside following their arrival. They were updated on the patient's overall clinical status. It is their desire at this time to focus on the patient's comfort and to transition her to DNR comfort care. The patient's vasopressors will be discontinued and she will be removed from continuous BiPAP therapy. Orders for palliative medications have been placed. CODE STATUS has been updated to DNR comfort care. TIME: 37 minutes of critical care time, independent of procedures, was spent addressing the patient's septic shock secondary to diabetic foot ulcer, acute combined respiratory failure, atrial fibrillation with RVR, decompensated heart failure, encephalopathy, thrombocytopenia, review of all data and collaboration with the care team. ([id number], [phone]) [id number] Critical care first hour
--- NOTE | 2020-04-27 08:18 | RAD_ITS ---
STUDY: X-RAY CHEST REASON FOR EXAM: Female, 84 years old. RESPIRATORY FAILURE. LTD EXAM D/T CLIN. COND. TECHNIQUE: Single AP portable view of the chest. COMPARISON: Comparison is made with prior study dated 04/25/2020. FINDINGS: A right-sided central venous catheter is in situ with tip at the junction of the superior vena cava and right atrium. EKG electrodes are seen. Left-sided PICC line catheter seen with the tip in the right atrium. Stable elevation of the right hemidiaphragm with a small right pleural effusion and right basilar atelectasis/infiltrate. Stable mild increased markings at the left lung base. Persistent mild degree of vascular congestion. Sternal cerclage wires and vascular clips are present from a prior sternotomy and coronary artery bypass graft procedure (CABG). Normal mediastinum and pito. Normal visualized pulmonary arteries. There is atherosclerotic calcification of the aortic arch with tortuosity. There are diffuse degenerative changes of the visualized thoracic spine. Normal visualized ribs, clavicles, and shoulders. There is no demonstrated abnormality of the visualized soft tissue structures of the upper abdomen. RAD/Chest 1 View (Portable) IMPRESSION: Stable examination with a small right pleural effusion and underlying atelectasis/infiltrate. Electronically Signed: Nestor Noonan, at 12:22 EDT , Service support ,
--- NOTE | 2020-04-27 08:32 | PCM.PN.CARD ---
Subjectve: The patient remains in the ICU. She is on BiPAP therapy. She appears to be very somnolent. Objective: Vital Signs Temp Pulse Resp BP Pulse Ox 98.1 F 128 H 22 H 96/75 100 04/27/20 06:00 04/27/20 08:00 04/27/20 08:00 04/27/20 08:00 04/27/20 08:00 Oxygen Flow Rate (L/min) 7 Oxygen Delivery Method Bi-pap Weight: 211 lb 13.828 oz Body Mass Index (BMI) 31.7 Finger Stick Blood Glucose 394 Intake and Output for Last 24 Hours 04/25/20 04/26/20 04/27/20 23:59 23:59 23:59 Intake Total 2434.17 / 2438.87 2553.16 / 2701.52 1233.18 / 1233.18 Output Total 1710 / 1710 55 / 55 8 / 8 Balance 724.17 / 728.87 2498.16 / 2646.52 1225.18 / 1225.18 General: Ill Appearing Lungs: Rhonchi Cardiovascular: Irregular Rhythm, Normal S1, Normal S2 Abdomen: Bowel Sounds Present, Soft Extremities: - - Left foot: Surgical wrap 04/26/20 09:05: pH 7.16 L*, Bicarbonate Actual 26.1 H, Base Excess -3 L, O2 Saturation 73 L, ABG pCO2 72.6 H*, ABG pO2 50 L, Shashank Test POS 04/26/20 09:10: Troponin I 0.187 H 04/26/20 10:02: pH 7.18 L*, Bicarbonate Actual 24.0, Base Excess -4 L, O2 Saturation 76 L, ABG pCO2 64.3 H, ABG pO2 52 L, Shashank Test POS 04/26/20 13:00: pH 7.20 L, Bicarbonate Actual 24.1, Base Excess -4 L, O2 Saturation 100 H, ABG pCO2 61.6 H, ABG pO2 203 H, Shashank Test POS 04/26/20 13:00: pH Cancelled, Bicarbonate Actual Cancelled, Base Excess Cancelled, O2 Saturation Cancelled, ABG pCO2 Cancelled, ABG pO2 Cancelled, Shashank Test Cancelled 04/26/20 16:20: Glucose 151 H 04/27/20 05:20: WBC RECREATION 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 TEACHER, Corrected WBC 10.0, RBC 3.60 L, Hgb 10.0 L, Hct 31.5 L, MCV 87.5, MCH 27.8, MCHC 31.7 L, Plt Count 31 L*, MPV 0.0 L, Neut % (Auto) Not Reportable, Absolute Neuts (auto) 8.8 H, Total Counted 100, Neutrophils % (Manual) 88 H, Band Neutrophils % 1, Lymphocytes % (Manual) 7 L, Monocytes % (Manual) 4, Metamyelocytes % 1 04/27/20 05:20: Sodium 138, Potassium 4.1, Chloride 103, Carbon Dioxide 22.0, Anion Gap 13, BUN 55 H, Creatinine 2.58 H, Est GFR (MDRD) Af Amer 23 L, Est GFR (MDRD) Non-Af 19 L, BUN/Creatinine Ratio 21.3 H, Glucose 190 H, Calcium 6.9 L, Total Bilirubin 3.40 H Rhythm: Atrial fibrillation Medical Necessity - Tobacco Use Smoking Status: Never smoker Assessment/Plan 1. Atrial fibrillation The patient has a history of atrial fibrillation. At the moment secondary to her low blood pressure and her other objective findings she is not on any rate limiting medications. As her hepatic studies have improved she has been placed back on IV amiodarone to assist with rate control. 2. 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 She will need to continue AHA antibiotic prophylaxis. She did have a follow-up transthoracic echocardiogram. The results are as noted. 3. CHF/left ventricular systolic dysfunction Based upon her echocardiographic findings her left ventricular systolic function is depressed/her LVEF is depressed. The etiology is unclear as to whether this is related to multiple factors including her atrial dysrhythmia with rapid ventricular response and/or her underlying sepsis syndrome. At the moment she is being followed. Ideally she would be on medical therapy such as beta-blockers and afterload reducing agents. However with her low blood pressures and other objective findings this is challenging to do at this time. She now has a temporary dialysis catheter placed. She has received dialysis to assist with her volume status. She is being followed by nephrology. 4. Hyperlipidemia She will continue risk factor modification medical therapy as deemed appropriate. 5. Hypertension Her blood pressure is low at this time. This may be secondary to her sepsis syndrome. She is avoiding medications would lower her blood pressure. He is now on 2 IV vasopressor agents to support her low blood pressure. 8. Pulmonary hypertension Her previous noninvasive and invasive studies are noted. Her most recent echocardiogram is as noted. Her estimated RV systolic pressures are noted. There is some concern as to the accuracy of these pressures based upon the technical difficulty obtaining the study. 9. Peripheral vascular disease She has been diagnosed with peripheral vascular disease. This may impacting her healing process. Podiatry has requested additional input from peripheral vascular surgery. 10. Diabetes mellitus related Charcot foot/infection She will continue evaluation care by internal medicine as well as podiatry. 11. Hepatic dysfunction Her hepatic studies appear to have improved somewhat. There is concerned this may have been related to shock liver . She is continuing to be followed by internal medicine and pulmonology/critical care medicine. 12. Renal insufficiency She has a temporary dialysis catheter in place. She has received dialysis. Nephrology is following to assist with her ongoing evaluation and care. Overall, at the present time, her prognosis, barring a change in her clinical condition, appears to be poor. According to Dr. Escobar her family of [place] is going to be present at [facility] to discuss her ongoing evaluation and care. As noted before she may need to be considered for palliative/hospice care. Comment: The patient's case has been discussed and reviewed with Dr. Escobar. This note was generated using a voice recognition system and there may be incorrect words, spelling or punctuation that were not noted when reviewing the office note prior to saving.
[2020-04-27 08:43] LABS: Allen Test POS; Blood Gas Specimen Type ART; EPAP 8; FI02 40; IPAP 20; O2 Delivery Device BiPAP; RR 12; SITE L RADIAL; Time Given 712; pH 7.28 (7.35-7.45)
[2020-04-27 08:44] LABS: Base Excess -4 mmol/L (-2 to +2); Bicarbonate 22.3 mmol/L (22-26); PO2 86 mmHG (75-100); SO2 95 % (95-99); Total Carbon Dioxide 24 mmol/L; pCO2 47.1 mmHg (35-45)
[2020-04-27] MEDS: Amiodarone 360 MG in Dextrose 5% Viaflo Bag 192.8 ML 16.7 MG CONT INF (09:29)
[2020-04-27] MEDS: Nystatin Powder 15gm Bottle 1 APPLIC TOPICAL (09:30)
[2020-04-27] MEDS: Menthol/Lanolin/Calamine/Znox 113 GM Tube 1 APPLIC TOPICAL (09:30)
[2020-04-27 10:17] LABS: Hepatitis B Surface Antigen Non-Reactive (Nonreactive)
[2020-04-27 11:33] LABS: Glucose 277 mg/dL (74-106)
[2020-04-27 11:50] LABS: Vancomycin, Random Level 15.8 ug/mL (0.0-15.0)
--- NOTE | 2020-04-27 12:36 | NURSING ---
Patient's sister, Akanksha, at bedside. After short discussion on patients status with this RN, Dr Escobar was paged to come speak with Akanksha. After Dr Escobar and Akanksha discussed the patients status it was decided to make patient a DNR-CC. Dr Escobar changing orders.
--- NOTE | 2020-04-27 12:45 | PN.RENAL_ITS ---
Patient Problems: Active and Suspected Problems (Last Reviewed 01/09/20 @ 11:16 by Sandy Hopson PA, PA) Diabetic infection of left foot (Acute) Paroxysmal atrial fibrillation with RVR (Acute) Lactic acidosis (Acute) Severe sepsis (Acute) Elevated serum creatinine (Acute) Hypotension (Acute) ULISSES (acute kidney injury) (Acute) Subjective: no new events lethargic, poorly responsive on BIPAP - Physical Exam Vitals/I&O's: Vital Signs Temp Pulse Resp BP Pulse Ox 98.1 F 136 H 24 H 106/42 L 98 04/27/20 06:00 04/27/20 11:06 04/27/20 11:00 04/27/20 11:00 04/27/20 11:00 Oxygen Flow Rate (L/min) 7 Oxygen Delivery Method Bi-pap Weight: 96.1 kg Body Mass Index (BMI) 31.7 Finger Stick Blood Glucose 394 Intake and Output for Last 24 Hours 04/25/20 04/26/20 04/27/20 23:59 23:59 23:59 Intake Total 2434.17 / 2438.87 2553.16 / 2701.52 1721.48 / 1721.48 Output Total 1710 / 1710 55 / 55 8 / 8 Balance 724.17 / 728.87 2498.16 / 2646.52 1713.48 / 1713.48 General: Oriented x3, Disoriented HEENT: Atraumatic, PERRLA, EOMI, Normocephalic Neck: Supple, No JVD, Negative Carotid Bruits Lungs: Clear to auscultation, Normal air movement Cardiovascular: Regular rate, No murmurs Abdomen: Bowel Sounds Present, Soft, Non Tender Extremities: No edema, Capillary Refill Less than 3 Seconds Skin: No rashes, No breakdown Musculoskeletal: No Tenderness to Palpation of Joints or Extremities Psych/Mental Status: Appropriate Microbiology Past 72 Hours 04/19/20 11:43 Blood Culture (Wb) - Left Hand Blood Culture - Final No growth in 5 days. 04/19/20 11:20 Blood Culture (Wb) - Anticubital Right Blood Culture - Final No growth in 5 days. Laboratory Results 04/26/20 05:35: Hep Bs Antigen Non-Reactive 04/26/20 13:00: Specimen Type ART, Sample Site L RADIAL, pH 7.20 L, Bicarbonate Actual 24.1, Total CO2 26, Base Excess -4 L, O2 Saturation 100 H, O2 % 100, ABG pCO2 61.6 H, ABG pO2 203 H, Shashank Test POS, O2 Delivery Device BiPAP, EPAP 6, IPAP 16, Blood Gas Notified Whom ICU , Blood Gas Notified Time 1300 04/26/20 13:00: Specimen Type Cancelled, Sample Site Cancelled, pH Cancelled, Bicarbonate Actual Cancelled, Total CO2 Cancelled, Base Excess Cancelled, O2 Saturation Cancelled, O2 % Cancelled, ABG pCO2 Cancelled, ABG pO2 Cancelled, Shashank Test Cancelled, Respiration Rate Cancelled, O2 Delivery Device Cancelled, Liter Flow Cancelled, Minute Volume Cancelled, Vent Mode Cancelled, Inspiratory Time Cancelled, Expiratory Time Cancelled, Tidal Volume Cancelled, POC PEEP Cancelled, POC Pressure Suppt Cancelled, Pressure Control Cancelled, Pressure High Cancelled, Pressure Low Cancelled, Time High Cancelled, Time Low Cancelled, EPAP Cancelled, IPAP Cancelled, Blood Gas Comments Cancelled, Blood Gas Notified Whom Cancelled, Blood Gas Notified Time Cancelled 04/26/20 16:20: Glucose 151 H 04/27/20 05:20: WBC 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, Corrected WBC 10.0, RBC 3.60 L, Hgb 10.0 L, Hct 31.5 L, MCV 87.5, MCH 27.8, MCHC 31.7 L, RDW Std Deviation 62.4 H, RDW Coeff of Blanca 20.7 H, Plt Count 31 L*, MPV 0.0 L, Neut % (Auto) Not Reportable, Absolute Neuts (auto) 8.8 H, Absolute Lymphs (auto) 0.70 L, Total Counted 100, Neutrophils % (Manual) 88 H, Band Neutrophils % 1, Lymphocytes % (Manual) 7 L, Monocytes % (Manual) 4, Metamyelocytes % 1, Nucleated RBCs/100 WBC 16 H, Diff Path Review December jordana Platelet Estimate MKD DEC, Anisocytosis 1+ 04/27/20 05:20: Sodium 138, Potassium 4.1, Chloride 103, Carbon Dioxide 22.0, Anion Gap 13, BUN 55 H, Creatinine 2.58 H, Estim Creat Clear Calc 13.30, Est GFR (MDRD) Af Amer 23 L, Est GFR (MDRD) Non-Af 19 L, BUN/Creatinine Ratio 21.3 H, Glucose 190 H, Calcium 6.9 L, Total Bilirubin 3.40 H, AST 780 H, ALT 992 H, Alkaline Phosphatase 182 H, Total Protein 5.2 L, Albumin 2.7 L, Globulin 2.5, Albumin/Globulin Ratio 1.1 04/27/20 07:10: Specimen Type ART, Sample Site L RADIAL, pH 7.28 L, Bicarbonate Actual 22.3, Total CO2 24, Base Excess -4 L, O2 Saturation 95, O2 % 40, ABG pCO2 47.1 H, ABG pO2 86, Shashank Test POS, Respiration Rate 12, O2 Delivery Device BiPAP, EPAP 8, IPAP 20, Blood Gas Notified Whom ICU MD, Blood Gas Notified Time 712 04/27/20 11:00: Random Vancomycin 15.8 H 04/27/20 11:17: Glucose 277 H Current Medications Acetaminophen (Tylenol) 650 mg PO Q6H PRN PRN PRN Reason: Pain Score 1-10/Temp > 100.7 F Last Admin: 04/24/20 11:03 Dose: 650 mg Documented by: Calamine/Phenol (Calmoseptine Ointment) 1 applic TOPICAL BID DONNIE; Protocol Last Admin: 04/27/20 09:30 Dose: 1 applicatio Documented by: Dextrose (D50w Syringe) 0 gm IV X1 PRN; Protocol PRN Reason: Hypoglycemia Last Admin: 04/26/20 06:24 Dose: 25 gm Documented by: Glucagon () 1 mg IM .X1 PRN PRN Reason: Hypoglycemia Guaifenesin (Robitussin) 10 ml PO Q6H PRN PRN PRN Reason: COUGH/CONGESTION Sodium Chloride () 250 mls @ 15 mls/hr IV .[id number] PRN PRN Reason: Saline Flush Last Infusion: 04/23/20 21:11 Dose: 0 mls/hr Documented by: Sodium Chloride () 250 mls @ 15 mls/hr IV .[id number] PRN PRN Reason: Additional IVPB Infusion Amiodarone HCl 360 mg/ (Dextrose) 200 mls @ 16.667 mls/hr CONT INF .Q12H DONNIE Last Infusion: 04/27/20 11:00 Dose: 0.5 mg/min, 16.7 mls/hr Documented by: Insulin Human Lispro (Humalog Kwikpen (Bkc)) 0 unit SC ACHS [facility]; Protocol Last Admin: 04/27/20 12:39 Dose: Not Given Documented by: Lorazepam (Ativan) 1 mg IV Q2H PRN PRN Reason: ANXIETY Menthol (Bengay Vanishing Scent) 1 applic TOPICAL 4X/DAY PRN PRN PRN Reason: knee pain Last Admin: 04/23/20 06:07 Dose: 1 applic Documented by: Morphine Sulfate () 2 - 4 mg IV Q30M PRN PRN Reason: Air hunger, RR>30 or SOB Nystatin (Mycostatin Powder) 1 applic TOPICAL BID [facility]; Protocol Last Admin: 04/27/20 09:30 Dose: 1 applicatio Documented by: Ondansetron HCl (Zofran) 4 mg IV Q8H PRN PRN PRN Reason: NAUSEA/VOMITING Senna/Docusate Sodium (Senokot-S, Jessie-Colace) 2 tablet PO BID [facility] Last Admin: 04/27/20 09:07 Dose: Not Given Documented by: Sodium Chloride () 10 - 40 ml IV UD PRN PRN Reason: SALINE FLUSH Last Admin: 04/26/20 05:59 Dose: 20 ml Documented by: Medical Necessity - Tobacco Use Smoking Status: Never smoker Assessment/Plan All Active Problems (Last Reviewed 01/09/20 @ 11:16 by Sandy Hopson PA, PA) Diabetic infection of left foot (Acute) Paroxysmal atrial fibrillation with RVR (Acute) Lactic acidosis (Acute) Severe sepsis (Acute) Elevated serum creatinine (Acute) Hypotension (Acute) ULISSES (acute kidney injury) (Acute) Bronchitis (Acute) Ulcer of right lower extremity with fat layer exposed (Resolved) Ulcer of left lower extremity with fat layer exposed (Resolved) Chronic ulcer of left foot with fat layer exposed (Resolved) Chronic ulcer of right great toe with fat layer exposed (Resolved) Ulcer of left lower extremity with fat layer exposed (Resolved) Ulcer of right lower extremity with fat layer exposed (Resolved) Venous ulcers of both lower extremities (Resolved) Hyponatremia (Resolved) ULISSES. normal baseline as of november 2019. admitted with multiple medical issues. no obstruction likely ATN in setting of other events clinically worse today on 2 pressors Bp is barely around 100 no urine output dialyzed yesterday dw staff. appears to have poor prognosis. family coming in today. 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
[2020-04-27] MEDS: LORazepam 2 MG/ML Syringe 1 MG IV (13:05)
[2020-04-27] MEDS: Morphine 2 MG/ML Syringe IV (13:05)
[2020-04-27] MEDS: Atropine Sulfate 1% 2 ml Bottle 4 DRP PO (13:06)
--- NOTE | 2020-04-27 13:23 | EXP.PCM_ITS ---
Preliminary Cause of acute hypoxic and hypercapnic respiratory failure Date of Admission: 04/19/20 Date of : 04/27/20 - Principle Diagnosis septic shock due to diabetic foot ulcer acute hypoxic and hypercapnic respiratory failure due to pneumonia and pleural effusion as well as acute on chronic heart failure with preserved EF ULISSES afib with RVR hyperkalemia acute on chronic heart failure thrombocytopenia Problem List: Active and Suspected Problems (Last Reviewed 01/09/20 @ 11:16 by Sandy Hopson PA, PA) Diabetic infection of left foot (Acute) Paroxysmal atrial fibrillation with RVR (Acute) Lactic acidosis (Acute) Severe sepsis (Acute) Elevated serum creatinine (Acute) Hypotension (Acute) ULISSES (acute kidney injury) (Acute) Hospital Course Patient is an 84-year-old female with an extensive past medical history as outlined was admitted through the ED on 04/19/2020 because of infected foot ulcer. Patient had a history of diabetic foot ulcer and had been scheduled to see podiatry on the day after admission for Charcot foot surgery. Patient had defaulted follow-up with wound care on outpatient basis. Also had gotten worse the family decided to bring her in. She did not have any fever or chills, shortness of breath, no chest pain, no lightheadedness or dizziness. In the ED, heart rate was initially normal but subsequently went into A. fib with RVR. She was admitted and managed for severe sepsis due to diabetic foot ulcer with cellulitis. White cell count was 18.3 and she was also tachycardic. Lactic acid was also 2.2. BNP was also elevated at 423. She was started on IV vancomycin and Zosyn and hydrated gently with IV fluids. Eliquis was held due to have possibly having surgical intervention and Lasix was also held on account of severe sepsis. She was started on Cardizem drip for A. fib with RVR. Cardizem drip was transitioned to amiodarone drip on account of heart rate still been elevated. Podiatry and critical care were consulted. MRI of the foot was negative for osteomyelitis but serial studies done showed very poor blood flow to her lower extremities. Eliquis was resumed as there were no plans for any surgical intervention. Her kidney function gradually worsened and patient's output of urine decreased. She was placed on Lasix drip to help with diuresis. Cardiology was also consulted. However patient persistently remained in positive balance by up to 15 L and required oxygen supplementation. Patient also developed hypercoagulopathy with INR going up to above 5. She received FFP's. She also had acute liver failure with liver enzymes trending up to 2000s. Ultrasound of the liver showed diffuse gallbladder wall thickening without. Cystic fluid. Hepatitis screen was negative. Nephrology determined that patient would need dialysis and she had a dialysis catheter placed. Patient had 2 sessions of dialysis with removal of fluid. However patient still remained in significant positive balance and shortness of breath gradually worsened. Patient became more somnolent and minimally responsive. Chest x-ray done showed small right pleural effusion and underlying atelectasis versus infiltrate. Subsequently, platelets dropped significantly to 31. ABG done showed pH of 7.18 with PCO2 of 76 and PO2 of 52. Patient was placed on BiPAP. At this time, patient was still full code. Prognosis was very guarded as patient was critically ill. At this point, patient was requiring Levophed and vasopressin for hemodynamic support and had also been placed on stress dose steroids. Per discussion critical care had with family, CODE STATUS was swi tched to DNR CCA, and they did not want patient intubated. Family came in to see patient on 04/27/2020 and after critical care discussed with family about patient's critical state and dire prognosis, decision was made to withdraw all care. CODE STATUS was switched to DNR CC and all care was withdrawn on 04/27/2020. Patient on 04/27/2020 and was pronounced at 1409. Cause of is acute hypoxic and hypercapnic respiratory failure due to fluid overload from ULISSES, acute on chronic heart failure with preserved ejection fraction and septic shock due to diabetic foot ulcer. Inpatient E&M: [id number] [facility]
[2020-04-27 13:27] LABS: Pathologist Review Reviewed
[2020-04-27 13:27] LABS: Pathologist Review Reviewed
[2020-04-27 13:27] LABS: Pathologist Review Reviewed
--- NOTE | 2020-04-27 14:16 | CHAPLAIN ---
Type of Pastoral Visit _x__ Initial Visit ___ Follow-up Visit ___ On-call Visit ___ General Patient Visit ___ Spiritual Assessment ___ Family Conference ___ Bereavement ___ Rapid Response ___ Code Blue _x - end of life __ Other (describe below) Pastoral Care Referral From ___ Patient _x__ Family _x__ Nurse ___ Physician ___ Spanish Linguist ___ Entrance Guard ___ Other (describe below) Sacrament/Intervention _x__ Active listening ___ Anointing ___ Uatsdin ___ Bereavement ___ Communion _x__ Britt exploration ___ _x__ Life review _x__ Prayer ___ Reconciliation ___ Sacrament of Sick _x__ Supportive presence ___ Wedding ___ Other (describe below) Pastoral Comments spoke to patient though she is unresponsive; offered prayers and scripture readings prior to removal of bi-pap; talked with sister and [id number] of pt during this visit; gave presence and opportunity for family to talk; pt is said to be member of Buddhist britt and local mormonism; family believes mormonism is aware of pt admission to hospital and thus no need to make further call to mormonism at this time; family gives life review of patient; sat with family and then removed self so family has some private time
--- NOTE | 2020-04-27 16:01 | CASEMGMT ---
Social Work Note Pt . SW placed a call to Rosanne at [facility] and updated her. Inga Moulton RADIOTELEGRAPHIST, DENTAL DETAIL REPRESENTATIVE
== END 2020-04-27 14:09 | DRG 871 ==
LOC: ED 11:34 → ICU 14:17
PROVIDERS: Internal Medicine Cardiovascular Disease; Internal Medicine Critical Care Medicine; Internal Medicine Nephrology; Podiatrist; Surgery; Admitting Provider Family Medicine; Emergency Provider Emergency Medicine; PCP Family Medicine; Visit Provider Student in an Organized Health Care Education/Training Program
DX: A41.9 Sepsis, unspecified organism (principal); K72.00 Acute and subacute hepatic failure without coma; N17.0 Acute kidney failure with tubular necrosis; R65.21 Severe sepsis with septic shock; J96.02 Acute respiratory failure with hypercapnia; J96.01 Acute respiratory failure with hypoxia; I50.33 Acute on chronic diastolic (congestive) heart failure; B17.9 Acute viral hepatitis, unspecified; I13.0 Hypertensive heart and chronic kidney disease with heart failure and stage 1 through stage 4 chronic kidney disease, or unspecified chronic kidney disease; L03.116 Cellulitis of left lower limb; E87.2 Acidosis; L97.912 Non-pressure chronic ulcer of unspecified part of right lower leg with fat layer exposed; J90 Pleural effusion, not elsewhere classified; E11.621 Type 2 diabetes mellitus with foot ulcer; E11.51 Type 2 diabetes mellitus with diabetic peripheral angiopathy without gangrene; E11.22 Type 2 diabetes mellitus with diabetic chronic kidney disease; E11.622 Type 2 diabetes mellitus with other skin ulcer; E11.610 Type 2 diabetes mellitus with diabetic neuropathic arthropathy; I27.20 Pulmonary hypertension, unspecified; I48.0 Paroxysmal atrial fibrillation; E11.628 Type 2 diabetes mellitus with other skin complications; Z66 Do not resuscitate; N18.3 Chronic kidney disease, stage 3 (moderate); B95.2 Enterococcus as the cause of diseases classified elsewhere; D69.59 Other secondary thrombocytopenia; E87.5 Hyperkalemia; T45.8X5A Adverse effect of other primarily systemic and hematological agents, initial encounter; R34 Anuria and oliguria; I35.0 Nonrheumatic aortic (valve) stenosis; E66.9 Obesity, unspecified; L97.522 Non-pressure chronic ulcer of other part of left foot with fat layer exposed; Z96.653 Presence of artificial knee joint, bilateral; Z79.4 Long term (current) use of insulin; Z68.31 Body mass index [BMI] 31.0-31.9, adult; Z99.2 Dependence on renal dialysis; Z79.01 Long term (current) use of anticoagulants; Z82.49 Family history of ischemic heart disease and other diseases of the circulatory system; Z87.891 Personal history of nicotine dependence; Z95.3 Presence of xenogenic heart valve; M06.9 Rheumatoid arthritis, unspecified; G25.81 Restless legs syndrome; M20.11 Hallux valgus (acquired), right foot; E78.2 Mixed hyperlipidemia; I36.1 Nonrheumatic tricuspid (valve) insufficiency; N32.81 Overactive bladder; B35.1 Tinea unguium; G62.9 Polyneuropathy, unspecified
CPT/HCPCS: 36415; 36569; 36600; 71045; 71046; 73630; 73718; 76705; 80048; 80053; 80069; 80074; 80076; 80202; 82140; 82247; 82248; 82803; 82947; 82962; 83605; 83880; 84075; 84156; 84450; 84460; 84484; 85025; 85610; 85652; 85730; 86140; 86644; 86900; 86901; 87040; 87070; 87075; 87077; 87186; 87205; 87340; 87640; 90937; 92526; 92610; 93005; 93306; 93923; 93925; 94002; 94003; 94667; 94668; 97110; 97162; 97166; 97530; 97535; 97802; 99251; 99285; J7030; J7040; J7050; P9017; P9047; A4216; C1752; G0257; G0463; J1940